=== PATIENT | female | born 1990 | race Caucasian/White ===

== ENCOUNTER 2020-01-19 19:14 | Emergency (ER) | payer MEDICAID, SELFPAY ==
[2020-01-19 19:30] VITALS: BP 131/82; PULSE 86; TEMP 37.2; O2SAT 99
--- NOTE | 2020-01-19 19:30 | DI.CT_ITS ---
EXAM: CT LUMBAR SPINE SI JOINTS WO CLINICAL HISTORY: Fall, L leg/back/buttock pain. TECHNIQUE: Imaging Protocol: Axial computed tomography images with coronal and sagittal reformatted images were created and reviewed COMPARISON: No exams were available for comparison FINDINGS: Bones: The last intervertebral disc space is designated the L5/S1 level for the numbering purpose of this examination. The vertebral body heights are well maintained. Alignment is satisfactory. No frac ture or subluxation is seen. T12-L1: No disc herniations or bulges are present. L1-2: No disc herniations or bulges are present. L2-3: No disc herniations or bulges are present. L3-4: No disc herniations or bulges are present. L4-5: No disc herniations or bulges are present. L5-S1: Small central disc protrusion but no significant central spinal canal or neural foraminal joslyn nosis. Soft Tissues: The visualized SI joints and sacrum are will maintained. The paraspinal soft tissues a re unremarkable. IMPRESSION: No acute abnormality. RADIATION DOSE DELIVERED: 771.4mGy.cm Total DLP 771.4mGy.cm Total DLP DATA REPOSITORY: All CT scans at this facility are submitted to the National Radiology Data Registry (NRDR) Dose Index Registry (DIR) with the [employer] (ACR). RADIATION OPTIMIZATION: All CT scans at this facility use at least one of these dose optimization te chniques: automated exposure control; mA and/or kV adjustment per patient size (includes targeted exa ms where dose is matched to clinical indication); or iterative reconstruction.
--- NOTE | 2020-01-19 19:30 | DI.CT_ITS ---
EXAM: CT HEAD CERVICAL SPINE WO CLINICAL HISTORY: fall, L pain. TECHNIQUE: Imaging Protocol: Axial computed tomography images with coronal and sagittal reformatted images were created and reviewed COMPARISON: No exams were available for comparison FINDINGS: CT Head: Ventricles and Extra axial spaces: Normal in size and morphology for the patient's age. Hemorrhage: None. Cerebral parenchyma: Normal. Midline shift: None. Brainstem/Cerebellum: Normal. Calvarium: Normal. Visualized Paranasal sinuses/Mastoids: Clear. Soft Tissues: Unremarkable. CT Cervical Spine: Bones: No acute fracture or subluxation. There is straightening of the normal cervical lordosis. Thi s likely is due to muscle spasm or patient positioning. Soft Tissues: Unremarkable. Lung Apices: Clear. IMPRESSION: 1. No acute intracranial process. 2. No acute fracture or subluxation in the cervical spine. RADIATION DOSE DELIVERED: 1,138.88mGy.cm Total DLP DATA REPOSITORY: All CT scans at this facility are submitted to the National Radiology Data Registry (NRDR) Dose Index Registry (DIR) with the [employer] (ACR). RADIATION OPTIMIZATION: All CT scans at this facility use at least one of these dose optimization te chniques: automated exposure control; mA and/or kV adjustment per patient size (includes targeted exa ms where dose is matched to clinical indication); or iterative reconstruction.
--- NOTE | 2020-01-19 19:44 | W.ED.GENAD ---
Discharge Plan Disposition Patient Disposition: HOME Condition: Stable Discharge Details Clinical Impression: Contusion of coccyx [facility]: Matthew Joseph Home Meds and New Rx's Prescriptions: Continued acyclovir 400 mg Tablet 400 mg PO BID RF: 0 pantoprazole [Protonix] 20 mg Tablet,Delayed Release (Dr/Ec) 20 mg PO DAILY RF: 0 sertraline 50 mg Tablet 50 mg PO DAILY RF: 0 Discharge Instructions Instructions: Contusion in Adults (ED) Medical Decision Making 30-year-old female who stepped backwards off a 4 foot high bed when she lost her footing fell on her buttocks and then struck her occiput on the ground. She did not have a loss of consciousness. She is now developed left buttock and low back pain. Vital signs are normal. Her reflexes and motor strength to lower extremity are within normal limits. She is diffusely tender throughout her L-spine. She complains of mild headache as well. Referred for CT images of the head and cervical spine as well as L-spine and SI joints. CT head without acute findings and cervical spine unremarkable. CT of the L-spine without acute fracture noted, normal alignment. No disc protrusion noted. Noted posterior disc bulge at L5-S1. I do also question distal coccyx bony deviation. Discussed findings with patient. She will use a inflatable doughnut to ease pressure on her coccyx. She will continue to use [id number] medications for pain as needed. She was consented for small number of narcotic analgesics for breakthrough/severe pain. She will return for any acute concerns. HPI General Mode of arrival: ambulatory. Date/Time Provider Initiated Documentation: 01/19/20 19:15. Limitations to Documentation: no limitations. Information obtained by: patient. History of Present Illness 30 year old F presents to the emergency department with the chief complaint of 4 foot fall, left occiput pain, left low back pain, described as moderate, Quality is described as dull, and is localized to the head, back, buttocks and left. Patient reports no radiation. Patient started experiencing this minute(s) and it has been constant. No relieving factors improve symptom(s), No exacerbating factors reported . Patient notes headaches. Patient did receive the following treatments prior to arrival, none Related Data Home Medications Medication Instructions Recorded Confirmed acyclovir 400 mg PO BID 01/19/20 01/19/20 pantoprazole [Protonix] 20 mg PO DAILY 01/19/20 01/19/20 sertraline 50 mg PO DAILY 01/19/20 01/19/20 Allergies Allergy/AdvReac Type Severity Reaction Status Date / Time Sulfa (Sulfonamide Allergy Intermediate Skin Rash Unverified 01/19/20 19:38 Antibiotics) General Stated Complaint: Trauma HAMILTON: 3 Review of Systems Narrative: No saddle anesthesia. Pain with weightbearing left hip but able to walk. She has otherwise been well. [facility] Social History Alcohol Intake: never Substance use type: does not use Do you feel safe at home: Yes Do you feel safe in your relationship?: Yes Exam Narrative Exam Narrative: GEN: awake, alert, oriented 3. Pleasant, well groomed, interactive. HEAD: Normocephalic, atraumatic ENT: Mucous membranes moist, oropharynx unremarkable, External ear exam unremarkable EYES: PERRL, EOMI NECK: Full ROM, no ROXANA, no menigismus CHEST/RESP: Nontender, clear to auscultation bilateral, no wheeze/rhonchi/rales CARDIOVASCULAR: RRR, no murmur, rub scotty. 2+ Rad pulse bilateral Back: Tender throughout the lumbar spine and pelvis with palpation. Do not appreciate focal step-off or deformity. ABDOMEN: Soft, nontender, no mass. +Bowel sounds EXT: Full ROM, no edema, no rash. Saddle sensation intact. Reflexes 2+, brisk and symmetric at the patella and ankle bilaterally. Neuro: Grossly normal neurologic exam, conversant, interactive. Psych: Speech fluent, thoughts congruent, affect normal Course Vital Signs Vital signs: Vital Signs Temperature 37.2 C 01/19/20 19:30 Pulse 86 01/19/20 19:30 Blood Pressure 131/82 01/19/20 19:30 Pulse Oximetry 99 01/19/20 19:30 Temperature 37.2 C 01/19/20 19:30 Temperature Source Skin 01/19/20 19:30 Pulse 86 01/19/20 19:30 Respiratory Effort Non-Labored 01/19/20 19:36 Blood Pressure 131/82 01/19/20 19:30 Blood Pressure Position Sitting 01/19/20 19:30 Pulse Oximetry 99 01/19/20 19:30 Oxygen Delivery Method Room Air 01/19/20 19:30 Oxygen Flow Rate 0 01/19/20 19:30 Pain Level 8 01/19/20 19:30
[2020-01-19] MEDS: Ketorolac 10 MG TAB PO (19:47)
[2020-01-19 20:18] VITALS: BP 116/66; PULSE 73; RESP 18; TEMP 37.2; O2SAT 100
[2020-01-19 21:09] VITALS: BP 130/71; PULSE 89; RESP 16; TEMP 37.4; O2SAT 100
--- NOTE | 2020-01-22 16:03 | DI.VRAD_ITS ---
PROCEDURE INFORMATION: Exam: CT Lumbar Spine Without Contrast Exam date and time: 01/19/2020 8:02 PM Age: 30 years old Clinical indication: Injury or trauma; Blunt trauma (contusions or hematomas); Patient HX: Fall, L leg/back/buttock pain TECHNIQUE: Imaging protocol: Computed tomography images of the lumbar spine without contrast. COMPARISON: No relevant prior studies available. FINDINGS: Vertebrae: No acute fracture. Normal alignment. Discs/Spinal canal/Neural foramina: No significant disc protrusion. Posterior disc bulge L5-S1 level contacting ventral border of thecal sac. No severe spinal canal stenosis. No significant neural foraminal narrowing. Soft tissues: Unremarkable. IMPRESSION: No acute findings. Dictated and Authenticated by: Randall Poole MD. Ordering:MASOUD Castro MD
--- NOTE | 2020-01-22 16:03 | DI.VRAD_ITS ---
PROCEDURE INFORMATION: Exam: CT Head Without Contrast Exam date and time: 01/19/2020 7:44 PM Age: 30 years old Clinical indication: Injury or trauma; Blunt trauma (contusions or hematomas); Patient HX: Fall, L pain TECHNIQUE: Imaging protocol: Computed tomography of the head without contrast. COMPARISON: No relevant prior studies available. FINDINGS: Brain: Normal. No hemorrhage. Unremarkable white matter. No mass effect. Cerebral ventricles: No ventriculomegaly. Bones/joints: Unremarkable. No acute fracture. Paranasal sinuses: Visualized sinuses are unremarkable. No fluid levels. Mastoid air cells: Visualized mastoid air cells are well aerated. Soft tissues: Unremarkable. IMPRESSION: No acute intracranial abnormality. PROCEDURE INFORMATION: Exam: CT Cervical Spine Without Contrast Exam date and time: 01/19/2020 7:44 PM Age: 30 years old Clinical indication: Injury or trauma; Blunt trauma (contusions or hematomas); Patient HX: Fall, L pain TECHNIQUE: Imaging protocol: Computed tomography images of the cervical spine without contrast. COMPARISON: No relevant prior studies available. FINDINGS: Vertebrae: No acute fracture. Normal alignment. Discs/Spinal canal/Neural foramina: No significant disc protrusion. No severe spinal canal stenosis. No significant neural foraminal narrowing. Soft tissues: Unremarkable. Lungs: Lung apices are normal. IMPRESSION: No acute findings. Dictated and Authenticated by: Manjinder Silveira MD. Ordering:MASOUD Castro MD
== END 2020-01-19 21:15 | disposition home or self-care (01) ==
PROVIDERS: Emergency Provider Emergency Medicine
DX: S30.0XXA Contusion of lower back and pelvis, initial encounter (principal); S09.90XA Unspecified injury of head, initial encounter; W06.XXXA Fall from bed, initial encounter
CPT/HCPCS: 99285; 70450; 72125; 72131; 99284

== ENCOUNTER 2020-06-26 13:37 | Outpatient (REF) | payer MEDICAID, SELFPAY | END 2020-06-26 13:38 | disposition home or self-care (01) | LOC: NCHCN 13:37 | PROVIDERS: Visit Provider Physician Assistant | DX: N39.0 Urinary tract infection, site not specified (principal) | CPT/HCPCS: 87086 ==

== ENCOUNTER 2020-07-26 19:12 | Outpatient (REF) | payer MEDICAID, SELFPAY ==
[2020-07-26 18:08] LABS: HCT 39.9 % (36.0-46.0); HGB 13.9 g/dL (11.2-15.7); MCH 31.7 pg (27.0-33.0); MCHC 34.8 % (32.0-36.0); MCV 90.9 fL (80-95); MPV 12.1 fL (8.0-11.0); Platelet Count 217 10^3/uL (130-400); RBC 4.39 10^6/uL (3.93-5.22); RDW 11.9 % (11.7-14.6); RDW-SD 39.6 fL; WBC 7.01 10^3/uL (4.4-10.8)
[2020-07-26 18:28] LABS: ALT 29 U/L (14-59); AST 23 U/L (15-37); Albumin 3.8 g/dL (3.4-5.0); Alkaline Phosphatase 75 U/L (46-116); Anion Gap 5.4 mmol/L (3-11); BUN 17 mg/dL (7-18); Bilirubin, Total 0.3 mg/dL (0.2-1.0); CO2 29.6 mmol/L (21.0-32.0); CREATININE 0.8 mg/dL (0.55-1.02); Chloride 104 mmol/L (98-107); Glucose 87 mg/dL (74-106); Potassium 4.2 mmol/L (3.5-5.1); Sodium 139 mmol/L (136-145); Total Protein 6.9 g/dL (6.4-8.2)
== END 2020-07-26 19:13 | disposition home or self-care (01) ==
LOC: NCHCN 19:12
PROVIDERS: Visit Provider Physician Assistant
DX: K21.9 Gastro-esophageal reflux disease without esophagitis (principal); K59.09 Other constipation
CPT/HCPCS: 80053; 85027

== ENCOUNTER 2020-08-12 14:39 | Emergency (ER) | payer MEDICAID, SELFPAY ==
[2020-08-12] VITALS (10 sets, daily range): BP systolic 97–120; BP diastolic 62–71; PULSE 60–72; RESP 14–21; TEMP 36.6; O2SAT 99–100
--- NOTE | 2020-08-12 14:41 | ED.GENADUL_ITS ---
Discharge Plan Disposition Patient Disposition: HOME Condition: Stable Discharge Details Clinical Impression: Abdominal pain Primary Care Provider: Puneet Borrego ED Provider: Cecelia Galan Home Meds and New Rx's Prescriptions: Continued pantoprazole [Protonix] 20 mg Tablet,Delayed Release (Dr/Ec) 20 mg PO DAILY RF: 0 sertraline 50 mg Tablet 50 mg PO DAILY RF: 0 valacyclovir 1 gram tablet 1 mg PO DAILY RF: 0 sumatriptan succinate 25 mg tablet 25 mg PO PRNRF: 0 ondansetron HCl 4 mg tablet 4 mg PO PRNRF: 0 dicyclomine 20 mg tablet 20 mg PO PRNRF: 0 budesonide-formoterol [Symbicort] 160-4.5 mcg/actuation HFA aerosol inhaler INHALATION BID RF: 0 Linzess 145 mcg capsule 145 mcg PO DAILY RF: 0 Discharge Instructions Instructions: Abdominal Pain (ED) Additional Instructions: Follow up with primary care provider in 3-5 days. Return to ED sooner if any worsening or concerns. Increase oral fluids. Please take Tylenol or Ibuprofen with food every 4-6 hours as needed for pain and swelling. Referrals: Puneet Borrego [Primary Care Provider] - Discharge Data Discharge Date/Time-TO BE ENTERED AT DEPARTURE: 08/12/20 14:46 Medical Decision Making 30-year-old female presents to the ER with chief complaint of right lower quadrant abdominal pain. She was seen at [facility] prior to arrival and referred to the emergency room. Patient reports that it began this morning. Describes as cramping. Also endorses some mid to lower back pain. Reports nausea but no vomiting no diarrhea. She has a past medical history of irritable bowel syndrome no surgical abdominal history. Do not take any medications prior to arrival Labs are largely unremarkable no leukocytosis, CMP within normal limits, urinalysis negative for leukocytes no nitrites. Urine is negative. Discussed CT results with radiologist she reports that no evidence of appendicitis or ovarian cyst unable to view the left ovary. Discussed CT and lab results with patient, she verbalized understanding. Offered pain and nausea medication which she refused at this time. CT ABDOMEN PELVIS W EXAM: CT ABDOMEN PELVIS W INDICATION: RLQ abd pain, R/O Appy vs ovarian cyst. COMPARISON: No exams were available for comparison TECHNIQUE: FINDINGS: CT examination of the abdomen and pelvis was performed with a bolus infusion of 100 cc of Omnipaque 350. Images obtained through the lung bases are unremarkable. The liver is unremarkable in appearance. Gallbladder and bile ducts are CT normal. Pancreas appears normal. Spleen is unremarkable in appearance. Adrenals appear normal. The kidneys are unremarkable with no evidence of hydronephrosis, nephrolithiasis, or renal mass.. Urinary bladder unremarkable. Abdominal aorta is of normal diameter and no major vascular abnormality is seen. No abdominal wall hernia. No abdominal or pelvic adenopathy. There is trace free pelvic fluid. [employer] structures appear intact as visualized, left ovary not identified with ce rtainty.. Appendix is nonvisualized but there is no specific evidence of appendicitis.. No evidence of diverticulitis or bowel obstruction. IMPRESSION: Trace free fluid in the pelvis. No other specific findings to suggest appendicitis or other acute pathology. Patient's pain at this time could be related to her IBS syndrome and or the recent use of the Linzess laxative. Discussed strict return instructions and follow-up with PCP patient verbalized understanding. HPI General Mode of arrival: ambulatory . Date/Time Provider Initiated Documentation: 08/12/20 14:40 . Limitations to Documentation: no limitations . Information obtained by: RN notes reviewed and old records reviewed (Report from [facility]) . HPI Narrative: 30-year-old female presents to the ER with chief complaint of right lower quadrant abdominal pain. She was seen at [facility] prior to arrival and referred to the emergency room. Patient reports that it began this morning. Describes as cramping. Also endorses some mid to lower back pain. Reports nausea but no vomiting no diarrhea. She has a past medical history of irritable bowel syndrome no surgical abdominal history. Do not take any medications prior to arrival. Related Data Home Medications Medication Instructions Recorded Confirmed pantoprazole [Protonix] 20 mg PO DAILY 01/19/20 08/12/20 sertraline 50 mg PO DAILY 01/19/20 08/12/20 Linzess 145 mcg PO DAILY 08/12/20 08/12/20 budesonide-formoterol [Symbicort] INHALATION BID 08/12/20 dicyclomine 20 mg PO PRN 08/12/20 ondansetron HCl 4 mg PO PRN 08/12/20 sumatriptan succinate 25 mg PO PRN 08/12/20 valacyclovir 1 mg PO DAILY 08/12/20 08/12/20 Allergies Allergy/AdvReac Type Severity Reaction Status Date / Time Sulfa (Sulfonamide Allergy Intermediate Skin Rash Unverified 08/12/20 14:54 Antibiotics) General HAMILTON: 3 Review of Systems Narrative: Constitutional: Negative for weight loss, alert and oriented, well groomed, normal body habitus, appears uncomfortable. HEENT: Denies trauma, headaches, blurry vision, nasal discharge, sore throat, trouble swallowing. Chest: Denies chest pain, palpitations, irregular rhythm, hypertension. Respiratory: Denies Shortness of breath, cough, hemoptysis. GI: Denies vomiting, diarrhea, constipation. Positive abdominal pain and lower back : Denies dysuria, hematuria, flank pain, rectal bleeding. Neuro: Denies dizziness, blurry vision, weakness, syncope, headache or facial numbness. Hematologic: Denies easy bruising, intolerance to heat or cold, hair loss. [facility] Social History Smoking/Tobacco Use Status: Never Smoking risk assessment performed?: Yes Alcohol Intake: current Alcohol Intake frequency: a few times a month Drug use: Never Substance use type: does not use Do you feel safe at home: Yes Do you feel safe in your relationship?: Yes Exam Narrative Exam Narrative: Constitutional: Alert and oriented x3. Appears stated age. Normal body habitus. Head: Normocephalic, no trauma. Eyes: Pupils PERRLA, Red reflex noted, EOM's intact. Eyelids symmetrical without lesions, discharge, or swelling. ENT: Bilateral TM's WNL, External ear normal to inspection, no mastoid TTP, swelling, or erythema, Nasal turbinates WNL, no nasal discharge. Normal dentition, Posterior pharynx WNL, no exudate. Chest: RRR, Normal S1, S2, distal pulses intact. Resp: Lungs clear to auscultation bilaterally, no wheezes, rales, or rhonchi. Abdomen: Soft, nondistended tender suprapubic with palpation. After moving increased cramping Musculoskeletal: Normal gait, 5/5 strength to all four extremities. Skin: No suspicious rashes or lesions. Capillary refill less than 2 sec. Neurologic: Cranial nerves II-XII intact. Alert and oriented x 3. DTR's intact. Hematologic/Lymphatic: No ecchymosis, no lymphadenopathy.
[2020-08-12 14:56] LABS: Bilirubin Negative (Negative); Blood Negative (Negative); Clarity Clear (Clear); Glucose Negative (Negative); Ketones Negative (Negative); Leukocyte Esterase Negative (Negative); Nitrite Negative (Negative); Urobilinogen 0.2 EU/dL (Up TO 0.2); pH 6.5 (5-8)
[2020-08-12 15:15] LABS: Abs Immature Grans 0.01 10^3/uL (0.0-0.06); Absolute Basophil Count 0.06 10^3/uL (0.0-0.2); Absolute Eosinophil Count 0.15 10^3/uL (0.0-0.7); Absolute Lymphocyte Count 2.27 10^3/uL (1.2-3.4); Absolute Monocyte Count 0.56 10^3/uL (0.1-0.8); Absolute Neutrophil Count 4.34 10^3/uL (1.2-6.7); Basophils % 0.8; HCT 41.4 % (36.0-46.0); Immature Grans % 0.1; Lymphocytes % 30.7; MCH 31.4 pg (27.0-33.0); MCHC 33.8 % (32.0-36.0); MCV 92.8 fL (80-95); MPV 11.3 fL (8.0-11.0); Monocytes % 7.6; Neutrophils % 58.8; Nucleated RBC 0 %; Platelet Count 226 10^3/uL (130-400); RBC 4.46 10^6/uL (3.93-5.22); RDW 12.4 % (11.7-14.6); RDW-SD 42.6 fL; WBC 7.39 10^3/uL (4.4-10.8)
[2020-08-12 15:26] LABS: Lipase 84 U/L (73-393); Magnesium 1.9 mg/dL (1.8-2.4)
[2020-08-12 15:29] LABS: ALT 37 U/L (14-59); AST 28 U/L (15-37); Albumin 3.8 g/dL (3.4-5.0); Alkaline Phosphatase 75 U/L (46-116); Anion Gap 7.5 mmol/L (3-11); BUN 11 mg/dL (7-18); Bilirubin, Total 0.3 mg/dL (0.2-1.0); CO2 27.5 mmol/L (21.0-32.0); CREATININE 0.8 mg/dL (0.55-1.02); Calcium 8.5 mg/dL (8.5-10.1); Chloride 105 mmol/L (98-107); Glucose 94 mg/dL (74-106); Sodium 140 mmol/L (136-145); Total Protein 7.2 g/dL (6.4-8.2)
[2020-08-12] MEDS: Normal Saline - Diluent 50 ML VIAL IV (15:34)
[2020-08-12] MEDS: Omnipaque 350 MG/ML 100 ML BTL IJ (15:34)
--- NOTE | 2020-08-12 15:35 | DI.CT_ITS ---
Exam(s) CT ABDOMEN PELVIS W EXAM: CT ABDOMEN PELVIS W INDICATION: RLQ abd pain, R/O Appy vs ovarian cyst. COMPARISON: No exams were available for comparison TECHNIQUE: FINDINGS: CT examination of the abdomen and pelvis was performed with a bolus infusion of 100 cc of Omnipaque 3 50. Images obtained through the lung bases are unremarkable. The liver is unremarkable in appearance. Gallbladder and bile ducts are CT normal. Pancreas appears normal. Spleen is unremarkable in appearance. Adrenals appear normal. The kidneys are unremarkable with no evidence of hydronephrosis, nephrolithiasis, or renal mass.. Ur inary bladder unremarkable. Abdominal aorta is of normal diameter and no major vascular abnormality is seen. No abdominal wall hernia. No abdominal or pelvic adenopathy. There is trace free pelvic fluid. [employer]ES [employer]CH[employer]ISING [employer]IATE structures appear intact as visualized, left ovary not identified with certainty.. Appendix is nonvisualized but there is no specific evidence of appendicitis.. No evidence of diverti culitis or bowel obstruction. IMPRESSION: Trace free fluid in the pelvis. No other specific findings to suggest appendicitis or other acute pa thology. RADIATION DOSE DELIVERED: 867.99mGy.cm Total DLP 867.99mGy.cm Total DLP RADIATION OPTIMIZATION: All CT scans at this facility use at least one of these dose optimization te chniques: automated exposure control; mA and/or kV adjustment per patient size (includes targeted exa ms where dose is matched to clinical indication); or iterative reconstruction.
== END 2020-08-12 14:46 | disposition home or self-care (01) ==
PROVIDERS: Emergency Provider Registered Nurse Emergency; PCP Physician Assistant
DX: R10.31 Right lower quadrant pain (principal)
CPT/HCPCS: 80053; 81025; 83690; 99285; 74177; 81003; 83735; 85025; 99283; J3490

== ENCOUNTER 2020-08-14 10:16 | Outpatient (REF) | payer MEDICAID, SELFPAY ==
[2020-08-14 15:29] LABS: HCT 44.8 % (36.0-46.0); HGB 15.1 g/dL (11.2-15.7); MCH 31.6 pg (27.0-33.0); MCHC 33.7 % (32.0-36.0); MCV 93.7 fL (80-95); MPV 12.2 fL (8.0-11.0); Platelet Count 238 10^3/uL (130-400); RBC 4.78 10^6/uL (3.93-5.22); RDW 12.4 % (11.7-14.6); RDW-SD 42.9 fL; WBC 6.25 10^3/uL (4.4-10.8)
[2020-08-14 15:46] LABS: HCG Quant, Pregnancy < 1 mIU/mL (1-3)
== END 2020-08-14 10:17 | disposition home or self-care (01) ==
LOC: NCHCN 10:16
PROVIDERS: PCP Physician Assistant; Visit Provider Nurse Practitioner Family
DX: R10.9 Unspecified abdominal pain (principal); N93.9 Abnormal uterine and vaginal bleeding, unspecified
CPT/HCPCS: 85027; 84702

== ENCOUNTER 2020-08-16 12:01 | Outpatient (CLI) | payer MEDICAID, SELFPAY ==
--- NOTE | 2020-08-16 | DI.US_ITS ---
Exam(s) US PELVIS TRANSVAGINAL EXAM: US PELVIS TRANSVAGINAL CLINICAL HISTORY: ABD PAIN R10.9, VAGINAL BLEEDING N93.9 TECHNIQUE: Ultrasound of the pelvis was performed both transabdominal and transvaginal. COMPARISON: US PELVIS TRANSVAG from 02/28/2012 FINDINGS: UTERUS: Anteverted/nongravid Measures 8 cm length x 4.4 cm AP x 6 cm wide. There are no uterine fibroids. Endometrial thickness measures 3 mm. There is no fluid in the endometrial canal. CERVIX: There are no obvious nabothian cysts. RIGHT OVARY: Measures 3.4 x 1.3 x 2.1 cm Contains subcentimeter follicular cysts. LEFT OVARY: Measures 1.7 x 2.7 x 1 point cm Contains subcentimeter follicular cysts. CUL-DE-SAC: No free fluid evident. IMPRESSION: 1. Normal appearing uterus and age-appropriate endometrium. 2. Follicular cysts noted in both ovaries, these measuring 1 cm or less. 3. No free fluid evident in the adnexal regions and cul-de-sac. DATA REPOSITORY:
== END 2020-08-16 12:21 ==
PROVIDERS: PCP Physician Assistant; Visit Provider Nurse Practitioner Family
DX: R10.9 Unspecified abdominal pain (principal); N93.9 Abnormal uterine and vaginal bleeding, unspecified; N83.01 Follicular cyst of right ovary; N83.02 Follicular cyst of left ovary
CPT/HCPCS: 76830; 76856

== ENCOUNTER 2020-09-17 16:15 | Outpatient (REF) | payer MEDICAID, SELFPAY ==
--- NOTE | 2020-09-17 16:00 | PAPFT_PTH ---
PATIENT: Renetta Bradley LOC: [facility] U#:[id number] AGE/SX: 30/F ROOM: RE09/17/[address]: Ellie Ramos MD : 1990 BED: DIS: 09/17/2020 SPEC #: [id number] RECD: 09/17/20 18:31 STATUS: THAD REQ #: [id number] JESSIE: 09/17/20 16:[address]: Ellie Ramos DEPT: [facility] Cytology RECD BY: Sunitha Alarcon ENTERED: 09/17/20 18:31 SP TYPE: PAPFT OTHR DR: Puneet Borrego Tissues: 1 - CX/ENDOCX FOR PAP SMEARS Procedures: PAP THIN PREP/UVM Screening Comments: [id number] (CHLAMYDIA/GC)
[2020-09-20 14:07] LABS: Chlamydia Result Negative (Negative); GC Result Negative (Negative)
== END 2020-09-17 16:16 | disposition home or self-care (01) ==
LOC: LBN 16:15
PROVIDERS: PCP Physician Assistant; Visit Provider Obstetrics & Gynecology
DX: Z11.3 Encounter for screening for infections with a predominantly sexual mode of transmission (principal); Z12.4 Encounter for screening for malignant neoplasm of cervix
CPT/HCPCS: 87491; 87591; 88142; 87624

== ENCOUNTER 2020-09-21 02:53 | Outpatient (CLI) | payer MEDICAID, SELFPAY ==
--- NOTE | 2020-09-21 16:34 | W.PFT ---
Date of service: 09/21/20 Time of Service: 03:01 Pulmonary Function Test Result Interpretation Spirometry: No evidence of obstructive airways disease, no bronchodilator testing was carried out Lung Volumes: No evidence of restriction Diffusion Capacity: Normal Airway Pressure: Normal Impression Normal pulmonary function study. No bronchodilator testing was carried out Clinical Correlation therefore is recommended.
[2020-09-21] MEDS: Methacholine 100 MG VIAL IH (17:24)
[2020-09-21] MEDS: Albuterol HFA 18 GM 200 PUFF INH IH (17:25)
[2020-09-21] MEDS: Inhaler, Assist Device 1 EACH MC (17:25)
--- NOTE | 2020-09-22 08:25 | PFT_ITS ---
Date of service: 09/21/20 Time of Service: 05:05 Pulmonary Function Test Result Clinical Correlation therefore is recommended. Methacholine Challnege Test Date of Service Date of Service: 09/21/2020 Note After normal spirometry, methacholine challenge testing was carried out up to methacholine concentration of 16 mg/mL. At that point there was a 13% drop in F EV1. Impression Negative methacholine challenge test
== END 2020-09-21 02:54 | disposition home or self-care (01) ==
LOC: RT 02:53
PROVIDERS: PCP Physician Assistant; Visit Provider Physician Assistant
DX: J45.998 Other asthma (principal)
CPT/HCPCS: 94060; 94726; 94729; 95070; 94010; J7674

== ENCOUNTER 2020-10-28 06:17 | Emergency (ER) | payer MEDICAID, SELFPAY ==
[2020-10-28 06:25] VITALS: BP 113/80; PULSE 68; RESP 14; TEMP 36.3; O2SAT 97
--- NOTE | 2020-10-28 06:36 | ED.GENADUL_ITS ---
Discharge Plan Disposition Patient Disposition: HOME Condition: Good Discharge Details Clinical Impression: Headache Primary Care Provider: Puneet Borrego ED Provider: Ron Slaughter Home Meds and New Rx's Prescriptions: Continued etonogestrel-ethinyl estradiol [NuvaRing] 0.12-0.015 mg/24 hr ring 1 vag ring vaginal Q4W Qty: 3 RF: 4 pantoprazole [Protonix] 20 mg Tablet,Delayed Release (Dr/Ec) 20 mg PO DAILY RF: 0 sertraline 50 mg Tablet 50 mg PO DAILY RF: 0 valacyclovir 1 gram tablet 1 mg PO DAILY RF: 0 sumatriptan succinate 25 mg tablet 25 mg PO DAILY MDD 50 PRN (Reason: Migraine Headache) RF: 0 ondansetron HCl 4 mg tablet 4 mg PO DAILY PRNRF: 0 dicyclomine 20 mg tablet 20 mg PO TID PRNRF: 0 budesonide-formoterol [Symbicort] 160-4.5 mcg/actuation HFA aerosol inhaler 2 puff INHALATION BID RF: 0 Linzess 145 mcg capsule 145 mcg PO DAILY RF: 0 Linzess 145 mcg capsule 145 mcg PO DAILY RF: 0 Discharge Instructions Instructions: General Headache (ED) Additional Instructions: At this time your symptoms appear consistent with a complex migraine headache. Please drink plenty of fluids, take Tylenol as Motrin as needed, and avoid preserved foods or foods high in nitrites. If you notice any worsening of your symptoms, or any new symptoms such as vomiting, diarrhea, fever, chills, shortness of breath, chest pain, numbness, weakness, or fainting , please return immediately to the emergency department for reevaluation. Please follow up with your primary care provider as soon as possible for reassessment and reevaluation. As always, it was a pleasure participating in your medical care today. Referrals: Puneet Borrego [Primary Care Provider] - Medical Decision Making 30-year-old female with a past medical history of migraine headaches, presents today for evaluation of headache. Patient states that starting yesterday she mild pain behind her left eye over her left scientologist, this is notably increased today, 2 create a severe throbbing headache in the left side of her head, with a rushing sensation when she moves her head forward and backwards. She denies any fever or chills. She denies any significant visual changes. She denies any neck pain. The patient denies any headache red flags thunderclap headache, neck pain, fever, chills, concerning family history of polycystic kidney disease, Marfan syndrome, Dolores-Danlos syndrome, abdominal aortic aneurysm, aortic dissection, or intracranial aneurysm. There are certainly components that are similar to her normal migraines however this 1 seems to be a bit worse from normal per the patient. She did take her sumatriptan, and other NSAIDs but to no improvement. Patient has been on her nova ring for some time now, but denies any oral contraceptives. No other complaints at this time. No other modifying factors. Exam demonstrates no neurologic deficits. No nuchal rigidity or meningeal signs. Symptoms clinically appearing consistent with giant cell/temporal arteritis, dural venous sinus thrombosis, or meningitis or encephalitis. Differential is highest for complex migraine. Patient has had a CT scan in the past on 01/19/2020. No mass tumor or other abnormality then. We will hold off on additional imaging for the time being. We will rehydrate, give migraine cocktail, monitor closely and reassess. 7:30 AM On reassessment the patient is feeling much better. Headache has nearly completely resolved, repeat neurologic exam is unremarkable. Patient feels well and was requesting to go home. At this time symptoms appear clinically inconsistent with venous sinus thrombosis, meningitis, temporal arteritis, acute intracranial bleed, mass-effect or tumor. Symptoms instead appear consistent with complex migraine. Recommend continued fluids, rest, Tylenol and Motrin as needed. Discussed red flags which to return. I have extensively reviewed the treatment plan and discharge instructions with the patient. I have addressed all patient concerns at this time. The patient was made aware of what symptoms to monitor for that would warrant a return to the emergency department. Discussed the plan with the patient, they demonstrate verbal understanding and agreement with our assessment and plan at this time. The documentation in this chart was dictated using [employer] dictation software. Please excuse any dictation errors. HPI General Date/Time Provider Initiated Documentation: 10/28/20 06:23 . HPI Narrative: 30-year-old female with a past medical history of migraine headaches, presents today for evaluation of headache. Patient states that starting yesterday she mild pain behind her left eye over her left scientologist, this is notably increased today, 2 create a severe throbbing headache in the left side of her head, with a rushing sensation when she moves her head forward and backwards. She denies any fever or chills. She denies any significant visual changes. She denies any neck pain. The patient denies any headache red flags thunderclap headache, neck pain, fever, chills, concerning family history of polycystic kidney disease, Marfan syndrome, Dolores-Danlos syndrome, abdominal aortic aneurysm, aortic dissection, or intracranial aneurysm. There are certainly components that are similar to her normal migraines however this 1 seems to be a bit worse from normal per the patient. She did take her sumatriptan, and other NSAIDs but to no improvement. Patient has been on her nova ring for some time now, but denies any oral contraceptives. No other complaints at this time. No other modifying factors. Related Data Home Medications Medication Instructions Recorded Confirmed pantoprazole [Protonix] 20 mg PO DAILY 01/19/20 10/28/20 sertraline 50 mg PO DAILY 01/19/20 10/28/20 Linzess 145 mcg PO DAILY 08/12/20 08/12/20 budesonide-formoterol [Symbicort] 2 puff INHALATION BID 08/12/20 10/28/20 dicyclomine 20 mg PO TID PRN 08/12/20 ondansetron HCl 4 mg PO DAILY PRN 08/12/20 10/28/20 sumatriptan succinate 25 mg PO DAILY PRN MDD 50 08/12/20 10/28/20 valacyclovir 1 mg PO DAILY 08/12/20 10/28/20 etonogestrel 0.12 mg-ethinyl 1 vag ring VAGINAL Q4W #3 ea 09/17/20 10/28/20 estradiol 0.015 mg/24 hr vaginal ring Linzess 145 mcg PO DAILY 10/28/20 10/28/20 Previous Rx's Medication Instructions Recorded etonogestrel 0.12 mg-ethinyl 1 vag ring VAGINAL Q4W #3 ea 09/17/20 estradiol 0.015 mg/24 hr vaginal ring Allergies Allergy/AdvReac Type Severity Reaction Status Date / Time Sulfa (Sulfonamide Allergy Intermediate Skin Rash Unverified 10/28/20 06:32 Antibiotics) General Stated Complaint: Headache HAMILTON: 3 Review of Systems All systems reviewed & are unremarkable except as noted in HPI and below PFSH Medical History Contraception management Menometrorrhagia Social History Smoking/Tobacco Use Status: Never Smoking risk assessment performed?: Yes Alcohol Intake: current Alcohol Intake frequency: a few times a month Drug use: Never Substance use type: does not use Do you feel safe at home: Yes Do you feel safe in your relationship?: Yes Exam Narrative Exam Narrative: 1.Const: Well-nourished, Well-developed, appearing stated age 2.Eyes: PERRL, no conjunctival injection, and symmetrical lids. Eyes on palpation do not feel asymmetrically tense. No exophthalmos. 3.ENT: Atraumatic external nose and ears. Moist MM. Neck: Symmetric, trachea midline, No thyromegaly. Patient demonstrates good movement of cervical neck. There is no nuchal rigidity, no nuchal tenderness. Patient is able to flex the neck without any difficulty or significant pain. Negative Kernig's and Brudzinski sign. 4.CVS: +S1/S2, No murmurs or gallops. Peripheral pulses 2+ and equal in all extremities. Brisk capillary refill in all extremities. 5.RESP: Unlabored respiratory effort. Clear to auscultation bilaterally. No wheezes rales or rhonchi 6.GI: Soft, Nontender/Nondistended, No hepatosplenomegaly. No guarding or rebound. 7.MSK: Normocephalic/Atraumatic, Extremities w/o deformity or ttp No cyanosis or clubbing, Normal movement of all extremities 8.Skin: Warm, Dry. No rashes or lesions. 9.Neuro: director of strategy & mobile II-XII grossly intact. Sensation grossly intact, no focal neurologic deficits. All 6 cardinal planes of vision are fully intact. No evidence of rotatory or vertical nystagmus. The patient demonstrated a normal [id number]-nftklz, good dexterity. There was no evidence of dysdiadochokinesia. Patient was able to ambulate without difficulty. There was no wide-based gait. [id number]-ot-[id number] testing was normal. Sensation was intact bilaterally as well as muscle strength bilaterally for all extremities. Patient was able to verbalize butter cup with no slurring, or miss pronunciation. 10.Psych: (AAO) x3. Appropriate mood and affect Course Vital Signs Vital signs: Vital Signs Temperature 36.3 C L 10/28/20 06:25 Pulse 68 10/28/20 06:25 Respiratory Rate 14 10/28/20 06:25 Blood Pressure 113/80 10/28/20 06:25 Pulse Oximetry 97 10/28/20 06:25 Temperature 36.3 C L 10/28/20 06:25 Temperature Source Skin 10/28/20 06:25 Pulse 68 10/28/20 06:25 Respiratory Rate 14 10/28/20 06:25 Respiratory Effort Non-Labored 10/28/20 06:32 Blood Pressure 113/80 10/28/20 06:25 Blood Pressure Position Sitting 10/28/20 06:25 Pulse Oximetry 97 10/28/20 06:25 Oxygen Delivery Method Room Air 10/28/20 06:25 Oxygen Flow Rate 0 10/28/20 06:25
[2020-10-28] MEDS: Normal Saline 1,000 ML 1000 ML IV (06:40)
[2020-10-28] MEDS: Ketorolac 15 MG/ML VIAL IVP (06:49)
[2020-10-28] MEDS: methylPREDNISolone SUCC 125 MG VIAL IVP (06:50)
[2020-10-28] MEDS: Prochlorperazine 10 MG/2 ML VIAL IVP (06:52)
[2020-10-28] MEDS: diphenhydrAMINE 50 MG/ML VIAL 25 MG IVP (06:52)
[2020-10-28] MEDS: ACETAMINOPHEN 1,000 MG/100 ML BTL 400 MG IVPB (07:02)
[2020-10-28 07:38] VITALS: BP 96/55; PULSE 65; RESP 18; O2SAT 100
== END 2020-10-28 07:41 | disposition home or self-care (01) ==
PROVIDERS: Emergency Provider Student in an Organized Health Care Education/Training Program; PCP Physician Assistant
DX: R51.9 Headache, unspecified (principal)
CPT/HCPCS: 36415; 81025; 96361; 96365; 96375; 99284; 99283; J0131; J0780; J1200; J1885; J2930

== ENCOUNTER 2021-05-04 21:59 | Emergency (ER) | payer BC, MEDICAID, SELFPAY ==
[2021-05-04 22:05] VITALS: BP 131/80; PULSE 69; RESP 18; TEMP 36.2; O2SAT 98
--- NOTE | 2021-05-04 22:20 | ED.GENADUL_ITS ---
Discharge Plan Disposition Patient Disposition: HOME Condition: Improving Discharge Details Clinical Impression: Cephalgia Primary Care Provider: Puneet Borrego ED Provider: Lloyd Henriquez Home Meds and New Rx's Prescriptions: Continued etonogestrel-ethinyl estradiol [NuvaRing] 0.12-0.015 mg/24 hr ring 1 vag ring vaginal Q4W Qty: 3 RF: 4 pantoprazole [Protonix] 20 mg Tablet,Delayed Release (Dr/Ec) 20 mg PO DAILY RF: 0 sertraline 50 mg Tablet 50 mg PO DAILY RF: 0 valacyclovir 1 gram tablet 1 mg PO DAILY RF: 0 sumatriptan succinate 25 mg tablet 25 mg PO DAILY MDD 50 PRN (Reason: Migraine Headache) RF: 0 ondansetron HCl 4 mg tablet 4 mg PO DAILY PRNRF: 0 dicyclomine 20 mg tablet 20 mg PO TID PRNRF: 0 budesonide-formoterol [Symbicort] 160-4.5 mcg/actuation HFA aerosol inhaler 2 puff INHALATION BID RF: 0 Linzess 145 mcg capsule 145 mcg PO DAILY RF: 0 Linzess 145 mcg capsule 145 mcg PO DAILY RF: 0 Discharge Instructions Instructions: General Headache (ED) Referrals: Yvonne Jewell MD [ [facility] STAFF PHYSICIAN] - Medical Decision Making 31-year-old female who reports history of migraines, typically at least 3 times a month, presents to the ER for a migraine that began yesterday. She took her sumatriptan as she typically does today and subsequently took Zofran, does not typically mix the 2, and then felt worse. Describes the pain as a moderate dull aching throb. She denies any fever or chills. She denies any visual changes or neck pain. She does not describe a thunderclap headache. No evidence of nuchal rigidity. Denies any history of family intracranial aneurysm. She appears neurologically intact. Patient states that she has never seen a neurologist for her ongoing migraines but she did have CT imaging back in 2019 after striking her head. I have reviewed her previous past medical history and it appears that she was seen last summer in our ER for atypical left-sided migraine that was more so about her temples and behind her eye. She responded very well to a migraine cocktail, I would like to try a migraine cocktail now and reassess. Given her presentation, I do believe that referring her to neurology would be prudent. Patient received IV fluid, Reglan, Toradol, Benadryl. Upon reevaluation clinically she appears comfortable, no acute distress. She reports that her nausea has resolved completely but her pain is only slightly improved. At this time we discussed her options. We discussed that we could repeat imaging here in the ER; however, patient reports that she has already had CT imaging and does not feel like this to be very helpful. She is open to receiving a referral to the neurologist so that she can have an further outpatient evaluation performed the potential MRI. She is also concerned that she will not sleep well tonight as she did not sleep well last night. We discussed medications, Phenergan can work well with migraine can also be sedating. Patient would like this medica tion given that she would like to have her father contacted so she may be picked up from the ER and go home to go to sleep. Patient is agreeable to awaiting reassessment after the Phenergan is given Upon reevaluation she reports improving symptoms. She once again request discharge home, is actively calling her father to pick her up. She appears well, nontoxic, neurologically intact. No evidence of nuchal rigidity. Strict discharge and return precautions were provided. I did place her on the neurology list to help expedite outpatient care This documentation was generated using [email or web address] dictation system, please disregard any oddities of phrase or misspellings. Medical Records Medical records reviewed: Yes I reviewed the patient's medical records. HPI General Mode of arrival: ambulatory . Date/Time Provider Initiated Documentation: 05/04/21 22:01 . Limitations to Documentation: no limitations . Information obtained by: patient . HPI Narrative: This is a 31-year-old female, past medical history of migraines, GERD, presenting to the ER for evaluation of migraine. Patient states that she had what she describes a typical migraine yesterday that were behind her left eye and waxed and waned. Today she states that the migraine went behind her right eye which is is slightly unusual and has been fairly steady ever since, she took sumatriptan and a bit later took Zofran as well. She states that she does not typically mix these medications and after taking the Zofran she felt as though her symptoms were worse. She is concerned about the medication interaction. She reports nausea but no vomiting. She states that after she took the Zofran she noticed twitching to both of her eyes. She denies recent illness or trauma. Reports that her headache is a 6 or 7 out of 10, global, but worse behind her eyes, more so on the right. She denies any blurry or double vision, fever, neck pain, vomiting, chest pain, shortness of breath, numbness, tingling, weakness. Patient reports a history of seizures; however, she has not had a seizure in over 2 years and is no longer taking any m edications. Related Data Home Medications Medication Instructions Recorded Confirmed pantoprazole [Protonix] 20 mg PO DAILY 01/19/20 05/04/21 sertraline 50 mg PO DAILY 01/19/20 05/04/21 Linzess 145 mcg PO DAILY 08/12/20 05/04/21 budesonide-formoterol [Symbicort] 2 puff INHALATION BID 08/12/20 05/04/21 dicyclomine 20 mg PO TID PRN 08/12/20 05/04/21 ondansetron HCl 4 mg PO DAILY PRN 08/12/20 05/04/21 sumatriptan succinate 25 mg PO DAILY PRN MDD 50 08/12/20 05/04/21 valacyclovir 1 mg PO DAILY 08/12/20 05/04/21 etonogestrel 0.12 mg-ethinyl 1 vag ring VAGINAL Q4W #3 ea 09/17/20 05/04/21 estradiol 0.015 mg/24 hr vaginal ring Linzess 145 mcg PO DAILY 10/28/20 05/04/21 Previous Rx's Medication Instructions Recorded etonogestrel 0.12 mg-ethinyl 1 vag ring VAGINAL Q4W #3 ea 09/17/20 estradiol 0.015 mg/24 hr vaginal ring Allergies Allergy/AdvReac Type Severity Reaction Status Date / Time Sulfa (Sulfonamide Allergy Intermediate Skin Rash Unverified 10/28/20 06:32 Antibiotics) General Stated Complaint: Headache HAMILTON: 3 Review of Systems Constitutional Constitutional: Denies fever(s), Reports headache(s) and Denies weakness Eyes Eyes: Denies blurry vision and Denies change in vision ENT Ears, Nose, Mouth, and Throat: Reports headache(s) and Denies neck pain Cardiovascular Cardiovascular: Denies chest pain and Denies dyspnea Respiratory Respiratory: Denies cough and Denies dyspnea Gastrointestinal Gastrointestinal: Reports nausea and Denies vomiting Musculoskeletal Musculoskeletal: Denies neck pain, Denies numbness and Denies tingling Integumentary/Breasts Skin/Breast: Denies rash Neurologic Neurologic: Reports headache(s), Denies numbness, Denies tingling and Denies weakness PFSH All Active Problems (Updated 05/04/21 @ 23:12 by CARMELA Vaughn) Headache (Acute) Cephalgia (Acute) Contraception management (Acute) Menometrorrhagia (Acute) Abdominal pain (Acute) Social History Smoking/Tobacco Use Status: Never Smoking risk assessment performed?: Yes Alcohol Intake: current Alcohol Intake frequency: a few times a month Drug use: Never Substance use type: does not use Do you feel safe at home: Yes Do you feel safe in your relationship?: Yes Exam Const General: cooperative, healthy appearing, comfortable and no acute distress Orientation: alert, awake and oriented x3 HENMT Head: normal to inspection, normocephalic and atraumatic Ears: external ears normal, TM's normal bilaterally and EAC's normal General nose exam: external nose normal Face and sinus: normal facial exam Mouth: oral mucosae normal and moist mucous membranes Eyes General: appearance normal, both eyes and all related structures Alignment and Position: alignment normal Periorbital: periorbital findings normal Eyelids: eyelids normal Conjunctivae: conjunctivae normal Sclera: sclerae normal Cornea: corneas normal Pupils: PERRL EOM: EOM intact bilaterally Direct ophthalmoscopy: normal light reflex Neck Neck: normal visual inspection, full ROM, no lymphadenopathy, no meningeal signs, trachea midline, supple and nontender Resp Effort & Inspection: normal respiratory effort and able to speak in complete sentences Auscultation: clear to auscultation bilaterally Cardio Rate: regular rate Rhythm: regular rhythm GI Palpation: soft and nontender Skin General skin exam: no rashes or lesions noted Neuro General: patient alert, patient awake, patient oriented x3, moves all extremities and no focal motor deficits Cranial Nerves: CN's II-XI intact bilaterally Cognition: normal cognition Speech: speech normal Gait: normal gait Motor: muscle tone normal throughout, strength 5/5 throughout, no movement abnormalities noted and no fasciculations Sensory Exam: no sensory deficits noted Coordination: Does not sway with eyes open Extrem General: normal to inspection and full ROM Psych Appearance: grossly normal Mental Status: mental status grossly normal Course Vital Signs Vital signs: Vital Signs Temperature 36.2 C L 05/04/21 22:05 Pulse 69 05/04/21 22:05 Respiratory Rate 18 05/04/21 22:05 Blood Pressure 131/80 05/04/21 22:05 Pulse Oximetry 98 05/04/21 22:05 Temperature 36.2 C L 05/04/21 22:05 Temperature Source Temporal Artery Scan 05/04/21 22:05 Pulse 69 05/04/21 22:05 Respiratory Rate 18 05/04/21 22:05 Respiratory Effort 05/04/21 22:09 Blood Pressure 131/80 05/04/21 22:05 Blood Pressure Position Supine 05/04/21 22:05 Pulse Oximetry 98 05/04/21 22:05 Oxygen Delivery Method Room Air 05/04/21 22:05 Oxygen Flow Rate 0 05/04/21 22:05 Pain Level 7 05/04/21 22:10
[2021-05-04] MEDS: Normal Saline 1,000 ML 1000 ML IV (22:40)
[2021-05-04] MEDS: diphenhydrAMINE 50 MG/ML VIAL IVP (22:40)
[2021-05-04] MEDS: Ketorolac 30 MG/ML VIAL IVP (22:40)
[2021-05-04] MEDS: Metoclopramide 10 MG/2 ML VIAL IVP (22:40)
== END 2021-05-04 23:39 | disposition home or self-care (01) ==
PROVIDERS: Emergency Provider Physician Assistant; PCP Physician Assistant
DX: G43.909 Migraine, unspecified, not intractable, without status migrainosus (principal)
CPT/HCPCS: 81025; 96361; 96374; 96375; 99284; 99283; J1200; J1885; J2765

== ENCOUNTER 2021-06-07 16:16 | Outpatient (REF) | payer BC, MEDICAID, SELFPAY ==
[2021-06-09 13:04] LABS: COVID-19 RT-PCR UVMMC Result Negative (Negative)
== END 2021-06-07 16:17 | disposition home or self-care (01) ==
LOC: NCHCN 16:16
PROVIDERS: PCP Physician Assistant; Visit Provider Nurse Practitioner Family
DX: Z20.822 Contact with and (suspected) exposure to COVID-19 (principal); J02.9 Acute pharyngitis, unspecified
CPT/HCPCS: U0003

== ENCOUNTER 2021-10-28 15:02 | Emergency (ER) | payer MEDICAID, SELFPAY ==
--- OUTSIDE RECORDS SUMMARY | 2021-10-28 15:07 | XMS_ITS | Encounter Summary ---
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 Primary Care Provider Puneet Borrego RPA Primary Care Provider [phone] Reason for Visit Reason Comments Other Encounter Details Date Type Department Care Team Description 07/09/2021 Refill [facility] Gallo Small, DRIVEMATIC MACHINE OPERATOR Other Medicine - [address] [phone] (Wo rk) Social History Tobacco Use Types Packs/Day Years Used Date Former Smoker Cigarettes 0 13 Quit: 05/10/19 16 Smokeless Tobacco: Never Used Comments: quit 06/26 Alcohol Use Standard Drinks/Week Comments Yes 0 (1 standard drink = 0.6 oz pure alcoho l) rare Alcohol Habits Answer Date Recorded How often do you have a drink containing alcohol? Not asked How many drinks containing alcohol do you have on a typical Not asked day when you are drinking? How often do you have six or more drinks on one occasion? No t asked Comment: rare 11/22/2018 Food Insecurity Answer Date Recorded Within the past 12 months, you worried that your food Someti mes true 06/20/2019 would run out before you got money to buy more. Within the past 12 months, the food you bought just Never tr ue 06/20/2019 didn't last and you didn't have money to get more. Sex Assigned at Date Recorded Female 02/20/2019 13:04 EST documented as of this encounter Functional Status Functional Status Response Date of Assessment Are you deaf or do you have serious difficulty hearing? No 10/30/2019 Are you blind or do you have serious difficulty seeing, No 10/30/2019 even when wearing glasses? Do you have serious difficulty walking or climbing No 10/30/2019 stairs? (5 years old or older) Do you have difficulty dressing or bathing? (5 years old No 10/30/2019 or older) Because of a physical, mental, or emotional condition, do No 10/30/2019 you have difficulty doing errands alone such as visiting a doctor's office or shopping? (15 years old or older) Cognitive Status Response Date of Assessment Because of a physical, mental, or emotional condition, do No 10/30/2019 you have serious difficulty concentrating, remembering, or making decisions? (5 years old or older) documented as of this encounter Miscellaneous Notes Telephone Encounter - Justin Ryan RN - 07/11/2021 1939 EDT Medication(s) Requested: Sertraline Preferred Pharmacy: [facility] Is patient out of medication? Unknown Last Refill Date: 12/03/20 Last Visit Date with Ordering Provider: Visit date not found Next Non-Acute Visit Date Scheduled with Care Team: Visit date not found JUSTIN RYAN RN 07/11/2021 19:39 documented in this encounter Plan of Treatment Not on filedocumented as of this encounter Visit Diagnoses Not on filedocumented in this encounter Care Teams Sales And Service Change Leader Relationship Specialty Start Date End Date Gallo Small NP PCP - General Family Medicine - Primary 07/02/19 07/11/21 Care Puneet Borrego RPA PCP - General Family Medicine - Primary 07/12/[address] [place] [id number] documented as of this encounter
--- OUTSIDE RECORDS SUMMARY | 2021-10-28 15:07 | XMS_ITS | Encounter Summary ---
:1990 Author Organization [facility] [place] [address] Care Team Providers Name Role Phone None Primary Care Provider Unavailable Reason for Visit Reason Onset Date Comments Other 10/22/2013 Returned call Encounter Details Date Type Department Care Team Description 10/22/2013 Telephone [place] [facility] [place]ter Esquivel MD Other (Returned call) [facility] [address] [place] [address] NEUROLOGY DEPT [phone] [place] [id number] (Wo rk) Social History Tobacco Use Types Packs/Day Years Used Date Current Every Day Smoker Cigarettes 0.25 7 Smokeless Tobacco: Never Used Alcohol Use Standard Drinks/Week Comments Yes 0 (1 standard drink = 0.6 oz pure alcoho l) Occasional Alcohol Habits Answer Date Recorded How often do you have a drink containing alcohol? Not asked How many drinks containing alcohol do you have on a typical Not asked day when you are drinking? How often do you have six or more drinks on one occasion? No t asked Comment: Occasional 09/11/2012 Physical Activity Answer Date Recorded On average, how many days per week do you engage in moderate 0 days 07/21/2021 to strenuous exercise (like walking fast, running, jogging, dancing, swimming, biking, or other activities that cause a light or heavy sweat)? On average, how many minutes do you engage in exercise at No t asked this level? Financial Resource Strain Answer Date Recorded How hard is it for you to pay for the very basics like Somew hat hard 07/21/2021 food, housing, medical care, and heating? Food Insecurity Answer Date Recorded Within the past 12 months, you worried that your food Someti mes true 07/21/2021 would run out before you got money to buy more. Within the past 12 months, the food you bought just Sometime s true 07/21/2021 didn't last and you didn't have money to get more. Transportation Needs Answer Date Recorded In the past 12 months, has lack of transportation kept you f rom No 07/21/2021 medical appointments or from getting medications? In the past 12 months, has lack of transportation kept you f rom No 07/21/2021 meetings, work, or getting things needed for daily living? Housing Stability Answer Date Recorded In the last 12 months, was there a time when you were not ab le Yes 07/21/2021 to pay the mortgage or rent on time? In the last 12 months, how many places have you lived? 1 07/21/2021 In the last 12 months, was there a time when you did not hav e a No 07/21/[address] to [address] or slept in a retirement (including now)? Sex Assigned at Date Recorded Not on file documented as of this encounter Miscellaneous Notes Telephone Encounter - Dexter Esquivel - 10/24/2013 4:03 PM EDT Called and left voice mail. Telephone Encounter - Iar Matthews - 10/22/2013 8:54 AM EDT The patient is returning you call. documented in this encounter Plan of Treatment Not on filedocumented as of this encounter Visit Diagnoses Not on filedocumented in this encounter Care Teams Patient Access Associate Relationship Specialty Start Date End Date None PCP - General 01/23/12 05/11/21 None documented as of this encounter
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
--- OUTSIDE RECORDS SUMMARY | 2021-10-28 15:07 | XMS_ITS | Encounter Summary ---
:1990 Author Organization [facility] Address [address] [place] [address] Care Team Providers Name Role Phone Gallo Small AIR CONDITIONING COIL ASSEMBLER Primary Care Provider Reason for Visit Reason Onset Date Comments Medications Refill 04/09/2020 Encounter Details Date Type Department Care Team Description 04/09/2020 Refill [facility] Family Gallo Small, AIR CONDITIONING COIL ASSEMBLER Medications Refill [address] [address] [place] [address] [phone] Social History Tobacco Use Types Packs/Day Years [...] or older) documented as of this encounter Ordered Prescriptions Prescription Sig Dispensed Refills Start Date End Date sertraline (ZOLOFT) 50 mg Take 1 Tab by mouth 30 Tab 2 0 04/12/2020 08/18/2020 tablet daily. documented in this encounter Miscellaneous Notes Telephone Encounter - Des Siddiqui RN - 04/12/2020 1243 EST Medication(s) Requested: sertaline 50mg Preferred Pharmacy: [facility] Is patient out of medication? Unknown Last Refill Date: 12/24/19 Last Visit Date with Ordering Provider: 12/31/19 Next Non-Acute Visit Date Scheduled with Care Team: No. DES SIDDIQUI RN 04/12/2020 12:43 elephone Encounter - Des Siddiqui RN - 04/12/2020 1243 EST From: Renetta Bradley To: Office of Gallo Small APRN Sent: 04/09/2020 15:20 EST Subject: Medication Renewal Request Refills have been requested for the following medications: sertraline (ZOLOFT) 50 mg tablet [Gallo Small APRN] Preferred pharmacy: [id number] documented in this encounter Plan of Treatment Not on filedocumented as of this encounter Visit Diagnoses Not on filedocumented in this encounter Discontinued Medications Medication Sig Discontinue Reason Start Date End Date sertraline (ZOLOFT) 50 mg Take 1 Tab by mouth Reorder 12/24/19 20 04/09/2020 tablet daily. documented as of this encounter Care Teams Wire Insulator Relationship Specialty Start Date End Date Gallo Small NP PCP - General Family Medicine - Primary 07/02/19 07/11/21 Care documented as of this encounter
--- OUTSIDE RECORDS SUMMARY | 2021-10-28 15:07 | XMS_ITS | Encounter Summary ---
:1990 Author Organization [facility] Address [address] [place] [address] Care Team Providers Name Role Phone Gallo Small NP Primary Care Provider Puneet Borrego RPA Primary Care Provider [phone] Encounter Details Date Type Department Care Team Description 09/17/2020 Lab Requisition [facility] Ellie Ramos for other Pathology & MD Jose general examination Laboratory Medicine [address] [facility] [address] [place], [place] Pavilion, Level [id number] [place] [phone] (Wo rk) Social History Tobacco Use Types Packs/Day Years Used Date Never Assessed Food Insecurity Answer Date Recorded Within the [...] or older) documented as of this encounter Plan of Treatment Not on filedocumented as of this encounter Procedures Procedure Name Priority Date/Time Associated Diagnosis Comme nts PAP TEST Today 09/17/2020 16:00 Encounter for other Resu lts for this EDT general examination procedur e are in the results section. CHLAMYDIA/N. Today 09/17/2020 16:00 Results for this GONORRHOEAE EDT procedure are i n AMPLIFIED RNA, the results THINPREP section. documented in this encounter Results PAP TEST (09/17/2020 16:00 EDT) Specimens A. Cervix and/or [facility] Endocervix , ThinPrep CENTER Imaging System with LABORATORY Manual Evaluation SERVICES Specimen Adequacy Satisfactory for Evaluation - transformation zone component present [facility] Scant squamous epithelial component [facility]ENTE R LABORATORY SERVICES General Negative for [facility] intraepithelial CENTER lesion or malignancy LABORATORY SERVICES Attestation . [facility] CENTER signed by Mustapha frazier LABORATORY ASHELY Evans(A SCP) SERVICES on 09/30/2020 at 1532 Clinical History See below [facility] SERVICES Performing Lab [facility] SERVICES Scanned Images [facility] SERVICES Specimen Pap Test - Cervix and/or Endocervix Performing Organization Address City/State/ZIP Code Phon e Number [facility] [address] [place] [address] SERVICES CHLAMYDIA/N. GONORRHOEAE AMPLIFIED RNA, THINPREP (09/17/2020 16:00 EDT) Pathologist Sig nature Gonococcus Result Negative Negative [facility] SERVICES Chlamydia Result Negative Negative [facility] SERVICES Specimen Pap Test - Cervix and/or Endocervix Performing Organization Address City/[facility]/ZIP Code Phon e Number [facility] [address] [place] [address] SERVICES documented in this encounter Visit Diagnoses Diagnosis Encounter for other general examination documented in this encounter Care Teams Content Checker Relationship Specialty Start Date End Date Gallo Small PUBLIC HEALTH TRAINING ASSISTANT PCP - General Family Medicine - Primary 07/02/19 07/11/21 Care Puneet Borrego RPA PCP - General Family Medicine - Primary 07/12/[address] [place] [id number] documented as of this encounter
--- OUTSIDE RECORDS SUMMARY | 2021-10-28 15:07 | XMS_ITS | Encounter Summary ---
:1990 Author Organization [facility] [place] [address] Care Team Providers Name Role Phone None Primary Care Provider Unavailable Reason for Visit Reason Comments Medication Refill Encounter Details Date Type Department Care Team Description 08/06/2014 Refill [place] [facility] Brittnee Khalil MD [facility] vik [facility] [place] [address] NEUROLOGY DEPT. [phone] [place], [place] [address] (Wo rk) Social History Tobacco Use Types [...] place to sleep or slept in a [facility] (including now)? Sex Assigned at Date Recorded Not on file documented as of this encounter Plan of Treatment Not on filedocumented as of this encounter Visit Diagnoses Not on filedocumented in this encounter Care Teams Preparer Samples And Repairs Relationship Specialty Start Date End Date None PCP - General 01/23/12 05/11/21 None documented as of this encounter
--- OUTSIDE RECORDS SUMMARY | 2021-10-28 15:07 | XMS_ITS | Encounter Summary ---
:1990 Author Organization [place] [address] Care Team Providers Name Role Phone None Primary Care Provider Unavailable Reason for Visit Reason Onset Date Comments Prior Authorization 01/30/2012 CARMELA FOR LAMICTAL XR F AXED Encounter Details Date Type Department Care Team Description 01/30/2012 Telephone [place]rology [place] [facility] Quinn Gutiérrez Prior Authorization (CARMELA [facility] MD Epifanio FOR LAMICTAL XR FAXED) [place] [address] NEUROLOGY DEPT. [phone] [place], [place] [address] (Wo rk) Social History Tobacco Use Types Packs/Day Years Used Date Former Smoker Cigarettes 1 7 Quit: 01/23/20 11 Smokeless Tobacco: Never Used Alcohol Use Standard Drinks/Week Comments Yes 0 (1 standard drink = 0.6 oz pure alcoho l) occasionally Alcohol Habits Answer Date Recorded How often do you have a drink containing alcohol? Not asked How many drinks containing alcohol do you have on a Not aske d typical day when you are drinking? How often do you have six or more drinks on one occasion? No t asked Comment: occasionally 01/23/2012 Physical Activity Answer Date Recorded On average, [...] 12 months, you worried that your food Somevipin mes true 07/21/2021 would run out before [...] place to sleep or slept in a fpc (including now)? Sex Assigned at Date Recorded Not on file documented as of this encounter Miscellaneous Notes Telephone Encounter - Jie Andersen LPN - 02/02/2012 8:15 AM EDT Prior Authorization PT ID: [id number] Insurance: [place] Provider: Elias Gutiérrez MD [facility]acy: [facility] Medication & Dose: Lamictal XR 25 mg tab: take 2 tabs daily Good for all strengths of drug Diagnosis: ? Of seizures Currently being evaluated Approved: 02/02/12 to 02/01/13 Other medications tried: 1. Keppra -- intolerable side effects of irritability, bloody gums 2. Dilantin -- intolerable side effects of overwhelming fatigue 3. topamax -- Word finding difficulty and difficulty thinking 4. Lamictal 2012 Telephone Encounter - Claudia Trotter - 01/30/2012 1:37 PM EDT CARMELA FOR LAMICTAL XR FAXED TO [facility] documented in this encounter Plan of Treatment Not on filedocumented as of this encounter Visit Diagnoses Not on filedocumented in this encounter Care Teams Retoucher Photoengraving Relationship Specialty Start Date End Date None PCP - General 01/23/12 05/11/21 None documented as of this encounter
--- OUTSIDE RECORDS SUMMARY | 2021-10-28 15:07 | XMS_ITS | Encounter Summary ---
:1990 Author Organization [facility] [place] [address] Care Team Providers Name Role Phone None Primary Care Provider Unavailable Reason for Visit Reason Onset Date Comments Medication Refill 01/23/2012 Encounter Details Date Type Department Care Team Description 01/23/2012 Refill Neurology at [facility] Quinn Gutiérrez MD [facility] [place] [address] NEUROLOGY DEPT. [phone] [place], [place] [address] (Wo rk) Social History Tobacco [...] months, you worried that your food Somevipin rivas true 07/21/2021 would run out before you [...] place to sleep or slept in a care home (including now)? Sex Assigned at Date Recorded Not on file documented as of this encounter Miscellaneous Notes Telephone Encounter - Char Carbone LPN - 01/25/2012 10:29 AM EDT Left message for patient re: Rx has been done. Telephone Encounter - Char Carbone LPN - 01/23/2012 3:47 PM EDT Patient states the provider that prescribed the lamotrigine would not give her a refill. He wanted her to wait until she saw a neurologist . Patient states she has been out of the medication for a couple of days. She request that Dr. Gutiérrez fill Rx if he still wants her on it. Rx request sent to Dr. George documented in this encounter Plan of Treatment Not on filedocumented as of this encounter Visit Diagnoses Not on filedocumented in this encounter Care Teams [place] Seamer Relationship Specialty Start Date End Date None PCP - General 01/23/12 05/11/21 None documented as of this encounter
--- OUTSIDE RECORDS SUMMARY | 2021-10-28 15:07 | XMS_ITS | Encounter Summary ---
:1990 Author Organization [facility] [place] [address] Care Team Providers Name Role Phone None Primary Care Provider Unavailable Reason for Visit Reason Onset Date Comments Prior Authorization 07/18/2013 PA NOT NEEDED FOR LA MICTAL XR (BRAND) Encounter Details Date Type Department Care Team Description 07/18/2013 Telephone Neurology at [facility] Kunal Smalls, Prior Authorization ([facility]ARMELA [facility] NOT NEEDED FOR LAMICTAL Drive [facility] XR (BRAND)) [place] [address] NEUROLOGY DEPT. [place], [place] [address] Social History Tobacco Use Types [...] this encounter Miscellaneous Notes Telephone Encounter - Claudia Trotter - 08/12/2013 9:43 AM EDT PA NOT NEEDED FOR LAMICTAL XR (BRAND) PER [facility] FAX. Telephone Encounter - Claudia Trotter - 08/11/2013 10:18 AM EDT REC'D FAX FROM INSURANCE ASKING FOR MORE INFO. FAXED Telephone Encounter - Claudia Trotter - 07/18/2013 3:24 PM EDT PA FOR LAMICTAL XR (BRAND) FAXED TO [email or web address]. documented in this encounter Plan of Treatment Not on filedocumented as of this encounter Visit Diagnoses Not on filedocumented in this encounter Care Teams Airbrush Artist Photography Relationship Specialty Start Date End Date None PCP - General 01/23/12 05/11/21 None documented as of this encounter
--- OUTSIDE RECORDS SUMMARY | 2021-10-28 15:07 | XMS_ITS | Encounter Summary ---
:1990 Author Organization [facility] [place] [address] Care Team Providers Name Role Phone None Primary Care Provider Unavailable Encounter Details Date Type Department Care Team Description 07/18/2016 Telephone Neurology at [facility] Quinn Gutiérrez MD [facility] [place] [address] NEUROLOGY DEPT. [phone] [place], [place] [address] (Wo rk) Social History Tobacco Use Types Packs/Day Years Used Date Former Smoker Cigarettes 0.25 7 Quit: 05/29/19 15 Smokeless Tobacco: Never Used Alcohol Use Standard [...] place to sleep or slept in a chcf (including now)? Sex Assigned at Date Recorded Not on file documented as of this encounter Miscellaneous Notes Telephone Encounter - Maurice Burciaga RN - 07/24/2016 9:32 AM EDT Attempted to return call still no answer or voicemail. Maurice Telephone Encounter - Maurice Burciaga RN - 07/21/2016 9:08 AM EDT Attempted to return call again, no answer and no voicemail available. Maurice Telephone Encounter - Maurice Burciaga RN - 07/19/2016 9:23 AM EDT Quinn Gutiérrez MD sent to Maurice Burciaga RN ? Caller: Unspecified (Yesterday, ??4:24 PM) ? I did not see her in 2014, only 2011 with fellow. ??She needs an appointment before we can answeranything. ? Previous Messages Attempted to return call no answer and no voicemail available. Maurice Telephone Encounter - Maurice Burciaga RN - 07/18/2016 4:[address] Gutiérrez, Spoke with Renetta, her last visit was August of 2014, she said she has been seizure free since. She said she has had no issues up until 5 days ago, she has been waking up in the morning with muscle weakness and soreness to the point that she almost fell d/t her legs being weak. Today she was lying on the sofa and had an episode she describes as being in a dream but not she could see her cat lying next to her on the sofa, she said she went in and out of this several times. She said this is not anything like the seizures she use to experience, previously she had GTC where she would bite her tongueand was incontinent of urine. She's concerned that this could be new seizure activity. She has been off all medications for over a year. She denies any recent illness or new stressors. Please advise. Maurice Bradley RN documented in this encounter Plan of Treatment Not on filedocumented as of this encounter Visit Diagnoses Not on filedocumented in this encounter Care Teams Chart Computer Relationship Specialty Start Date End Date None PCP - General 01/23/12 05/11/21 None documented as of this encounter
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
--- OUTSIDE RECORDS SUMMARY | 2021-10-28 15:07 | XMS_ITS | Encounter Summary ---
:1990 Author Organization [place] [address] Care Team Providers Name Role Phone None Primary Care Provider Unavailable Reason for Visit Reason Onset Date Comments Medication Refill 08/16/2012 Encounter Details Date Type Department Care Team Description 08/16/2012 Refill Neurology at [facility] Shay Mckeon MD [facility] [address] [facility] [phone] [place], [place] [address] (Wo rk) Social History Tobacco Use Types Packs/Day Years Used Date Current Every Day Smoker Cigarettes 0.5 7 Hugo t: 01/22/2011 Smokeless Tobacco: Never Used Alcohol Use Standard [...] months, you worried that your food Somevipin rivsa true 07/21/2021 would run out before you [...] place to sleep or slept in a usp (including now)? Sex Assigned at Date Recorded Not on file documented as of this encounter Miscellaneous Notes Telephone Encounter - Shay Mckeon MD - 08/16/2012 9:25 AM EDT Refilled Rx Shay Mckeon III, MD Telephone Encounter - Patti Arellano - 08/16/2012 9:16 AM EDT Patient called for prescription refill for: Patient will be out of the medication on Sunday Name of Med: Lamictal Strength of Pills:25 mg Dosing Directions: take two tablets twice daily 30 or 90 Day: 30 [facility]acy: [facility] [place] Last Appointment: Next Appointment:09/2012 documented in this encounter Plan of Treatment Not on filedocumented as of this encounter Visit Diagnoses Not on filedocumented in this encounter Care Teams Gridcap Machine Operator Relationship Specialty Start Date End Date None PCP - General 01/23/12 05/11/21 None documented as of this encounter
--- OUTSIDE RECORDS SUMMARY | 2021-10-28 15:07 | XMS_ITS | Encounter Summary ---
:1990 Author Organization [facility] [address] Care Team Providers Name Role Phone None Primary Care Provider Unavailable Reason for Visit Reason Onset Date Comments Seizures 06/22/2012 Encounter Details Date Type Department Care Team Description 06/23/2012 Telephone [place]rology [place] [facility] Miguel Pereira Jr., MD Seizures [facility] [place] [address] NEUROLOGY DEPT [phone] [place], [place] [address] (Wo rk) Social History Tobacco [...] place to sleep or slept in a senior living (including now)? Sex Assigned at Date Recorded Not on file documented as of this encounter Miscellaneous Notes Telephone Encounter - Miguel Pereira Jr. - 06/23/2012 11:29 AM EDT Pt called to report a seizure on the morning of 06/22. She was concerned because she had an extended period of sleepiness, headache, nausea and poor PO intake. Given that she was not recovering as usual, I recommended that she find a way to the nearest ED. I let her know that we would be happy to discuss the case with the physicians there, and share any information to facilitate her care. I also let her know that she can call back with any questions. documented in this encounter Plan of Treatment Not on filedocumented as of this encounter Visit Diagnoses Not on filedocumented in this encounter Care Teams Fruit Pitter Relationship Specialty Start Date End Date None PCP - General 01/23/12 05/11/21 None documented as of this encounter
--- OUTSIDE RECORDS SUMMARY | 2021-10-28 15:07 | XMS_ITS | Encounter Summary ---
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 was no abnormal interictal epilept iform activity. There was one generalized sharp wave following an arousal from sleep that was a little suspicious. but probably represents a vertex wave as she becomes drowsy again and goes back to sleep Events: There were no clinical events reported a nd no subclinical electrographic seizures detected. Seizure #* Date: * Clinical onset:* Electrical onset:* Clinical manifestations:* EEG: * Hyperventilation and photic stimulation: Hyperventilation and photic stimulation was performed as part of the monitoring. This did not result in any clinical manifestations or electrical abnormal activity. EKG: EKG revealed normal sinus rhythm th roughout. INTERPRETATION: Normal shelter monitoring EEG without epileptiform activity or clinical events. Continue monitoring, with provocative maneuvers, to try and capture seizures and make a definite diagnosis. Lela Dos Santos MD [place] [address] Pager: [phone], #[phone] Email: [email or web address] Lela Dos Santos MD NEUROLOGY ORDERABLES ZVIDEO EEG MONITORING (03/08/2012 10:58 PM EST) Narrative Lela Dos Santos MD - 03/08/2012 10:58 PM EST LELA DOS SANTOS ? 03/08/2012 ? 10:58:13 PM [facility] VIDEO EEG MONITORING REPORT Date of Recording: March 072011 Interpreting Physician: Lela Teran BRIEF HISTORY/INDICATION FOR STUDY: Patient appears to have generalized conv ulsive seizures, but there has been some doubt as to whether these are epileptic. Video EEG monitoring was performed to es tablish a diagnosis. Current Medications: ??The patient is cu rrently on no antiepileptic medications. She has been off Lamictal for 3 days METHODS: Video/EEG monitoring was performed in e inpatient epilepsy shelter monitoring unit using 24 hour video and 18 channel EEG coverage. The 10/20 international system of electrode placement was used. In addition to EEG the patient was monitored for EKG and lateral/vertical eye movements. The record was read using reformatted bipolar and referential elec trode montages. ??Digital signal processing, seizure and spike det ection methods were applied. DESCRIPTIVE TEXT: Background activity: During the awake state with the eyes anton sed the background consisted of a medium amplitude, 9-10 Hz posterior reactive rhythm that attenuated appropriately wit h eye opening. Beta activity was distributed diffusely with an anterior predominance. There was a normal anterior-posterior vo ltage gradient. With eyes open the background activity changed to a low voltage mixture of alpha, beta, and occasional theta range frequencies. There were no significant asymmetries of background activity. With drowsiness there was some waxing an d waning of the alpha rhythm with eventual replacement by a mixture of bet a, alpha and theta activity. As the patient entered stage I I of sleep, symmetrical spindles and vertex sharp waves were pre sent. Sleep stage III and IV with prominent high amplitude delta s lowing as well as REM sleep with rapid eye movements and faste r background rhythms were recorded. Arousal was unremarkable. Interictal findings: There was no abnormal interictal epilept iform activity. Events: There were no clinical events reported a nd no subclinical electrographic seizures detected. Seizure #* Date: * Clinical onset:* Electrical onset:* Clinical manifestations:* EEG: * Hyperventilation and photic stimulation: Hyperventilation and photic stimulation was performed as part of the monitoring. This did not result in a ny clinical manifestations or electrical abnormal ac tivity. EKG: EKG revealed normal sinus rhythm th roughout. INTERPRETATION: Normal manager long term care monitoring EEG without epileptiform activity or clinical events. Continue monitoring, wi th provocative maneuvers, to try and capture seizures and make a d efinite diagnosis. Lela Dos Santos MD [place] [address] Pager: [phone], #[phone] Email: [email or web address] Procedure Note Lela Dos Santos MD - 03/08/2012 10:54 PM EST [facility] VIDEO EEG MONITORING REPORT Date of Recording: March 072011 Interpreting Physician: Lela Teran BRIEF HISTORY/INDICATION FOR STUDY: Patient appears to have generalized conv ulsive seizures, but there has been some doubt as to whether these are epileptic. Video EEG monitoring was performed to es tablish a diagnosis. Current Medications: The patient is curr ently on no antiepileptic medications. She has been off Lamictal for 3 days METHODS: Video/EEG monitoring was performed in [facility] inpatient epilepsy manager long term care monitoring unit using 24 hour video and 18 channel EEG coverage. The 10/20 international system of electrode placement was used. In addition to EEG the patient was monitored for EKG and la teral/vertical eye movements. The record was read using reformatted bipolar and referential electrode montages. Digital signal processing, seizure and spike detection methods were applied. DESCRIPTIVE TEXT: Background activity: During the awake state with the eyes anton sed the background consisted of a medium amplitude, 9-10 Hz posterior reactive rhythm that attenuated appropriately with eye opening. Beta activity was distributed diffusely with an anterior predominance. There was a normal anterior-posterior voltage gradient. With eyes open the background activity changed to a low voltage mixture of alpha, beta, and occasional theta range frequencies. There were no significant asymmetries of background activity. With drowsiness there was some waxing an d waning of the alpha rhythm with eventual replacement by a mixture of bet a, alpha and theta activity. As the patient entered stage II of sleep, symmetrical spindles and vertex sharp waves were present. Sleep stage III and IV with prominent high amplitude delta slowing as well as REM s leep with rapid eye movements and faster background rhythms were recorded. Arousal was unremarkable. Interictal findings: There was no abnormal interictal epilept iform activity. Events: There were no clinical events reported a nd no subclinical electrographic seizures detected. Seizure #* Date: * Clinical onset:* Electrical onset:* Clinical manifestations:* EEG: * Hyperventilation and photic stimulation: Hyperventilation and photic stimulation was performed as part of the monitoring. This did not result in any clinical manifestations or electrical abnormal activity. EKG: EKG revealed normal sinus rhythm [facility]. INTERPRETATION: Normal shelter monitoring EEG without epileptiform activity or clinical events. Continue monitoring, with provocative maneuvers, to try and capture seizures and make a definite diagnosis. Lela Dos Santos MD [place] [address] Pager: [phone], #[phone] Email: [email or web address] Lela Dos Santos MD NEUROLOGY ORDERABLES EEG video monitoring (03/08/2012 4:42 AM EST) Narrative Anni Dougherty MD - 03/08/2012 4:42 A M EST ANNI DOUGHERTY ? 03/08/2012 ? 4:42:59 AM CANVASSING MANAGER VIDEO EEG MONITORING REPORT Date of Recordin/27-03/06/2012 Interpreting Physician: Anni Dougherty MD, PhD [Attending] Shay Mckeon III, MD [Fellow] BRIEF HISTORY/INDICATION FOR STUDY: ?? 22-year-old right-handed female presents with episodes of loss of awareness with generalized shaking. Vide o EEG monitoring was performed to establish a diagnosis. MEDICATIONS The patient is currently on no antiepile ptic medications. METHODS: Video/EEG monitoring was performed in e inpatient epilepsy shelter monitoring unit using 24 hour video and 18 channel EEG coverage. The 10/20 international system of electrode placement was used. In addition to EEG the patient was monitored for EKG and lateral/vertical eye movements. The record was read using reformatted bipolar and referential elec trode montages. ??Digital signal processing, seizure and spike det ection methods were applied. OBSERVATIONS: Background Activity During the awake state with the eyes anton sed the background consisted of a 10 Hz posterior reactive rhythm that attenuated appropriately with eye opening. Beta act ivity was distributed diffusely with an anterior predominance. There was a normal anterior-posterior voltage gradient. Wit h eyes open the background activity changed to a low vol tage mixture of alpha, beta, and occasional theta range frequen cies. There were no significant asymmetries of background ac tivity. With drowsiness there was some waxing and waning of the alpha rhythm with eventual replacement by a mixture of bet a, alpha and theta activity. As the patient entered stage I I of sleep, symmetrical spindles and vertex sharp waves were pre sent. Sleep stage III and IV with prominent high amplitude delta s lowing as well as REM sleep with rapid eye movements and faste r background rhythms were recorded. Arousal was unremarkable. Interictal Findings There was no abnormal interictal epilept iform activity. Events There were no clinical events reported a nd no subclinical electrographic seizures detected. EKG EKG revealed normal sinus rhythm through out. INTERPRETATION Normal shelter EEG monitoring without epileptiform activity or clinical events. CONCLUSION Continue video/EEG monitoring. Shay Mckeon III, MD EPILEPSY ATTENDING ADDENDUM - I personally reviewed and interpreted [facility] EEG in its entirety along with the EMPLOYEE COMMUNICATIONS MANAGER fellow, and I agree w ith the above interpretation as documented. Anni Dougherty MD, PhD Apns of Neurology [facility] Clinical Neurophysiology Laboratory Procedure Note Anni Dougherty MD - 03/06/2012 11:38 AM EST CANVASSING MANAGER VIDEO EEG MONITORING REPORT Date of Recordin/27-03/06/2012 Interpreting Physician: Anni Dougherty MD, PhD [Attending] Shay Mckeon III, MD [Fellow] BRIEF HISTORY/INDICATION FOR STUDY: 22-year-old right-handed female presents with episodes of loss of awareness with generalized shaking. Video EEG monitoring was performed to establish a diagnosis. MEDICATIONS The patient is currently on no antiepile ptic medications. METHODS: Video/EEG monitoring was performed in [facility] inpatient epilepsy shelter monitoring unit using 24 hour video and 18 channel EEG coverage. The 10/20 international system of electrode placement was used. In addition to EEG the patient was monitored for EKG and la teral/vertical eye movements. The record was read using reformatted bipolar and referential electrode montages. Digital signal processing, seizure and spike detection methods were applied. OBSERVATIONS: Background Activity During the awake state with the eyes anton sed the background consisted of a 10 Hz posterior reactive rhythm that attenuated appropriately with eye opening. Beta activity was distributed diffusely with an anterior predominance. There was a normal anterio r-posterior voltage gradient. With eyes open the background activity changed to a low voltage mixture of alpha, beta, and occasional theta range frequencies. There were no significant asymmetries of background ac tivity. With drowsiness there was some waxing and waning of the alpha rhythm with eventual replacement by a mixture of beta, alpha and theta activity. As the patient entered stage II of sleep, symmetrical spindles and verte x sharp waves were present. Sleep stage III and IV with prominent high amplitude delta slowing as well as REM sleep with rapid eye movements and faster background rhythms were recorded. Arousal was unremarkable. Interictal Findings There was no abnormal interictal epilept iform activity. Events There were no clinical events reported a nd no subclinical electrographic seizures detected. EKG EKG revealed normal sinus rhythm through out. INTERPRETATION Normal shelter EEG monitoring without epileptiform activity or clinical events. CONCLUSION Continue video/EEG monitoring. Shay Mckeon III, MD EPILEPSY ATTENDING ADDENDUM - I personally reviewed and interpreted [facility] EEG in its entirety along with the EMPLOYEE COMMUNICATIONS MANAGER fellow, and I agree with the above interpretation as documented. Anni Dougherty MD, PhD Apns of [facility] Clinical Neurophysiology Laboratory Tin Kay MD NEUROLOGY ORDERABLES DIFFERENTIAL, AUTOMATED (03/05/2012 7:12 PM EST) P athologist Signature Neutrophils % 58.2 34.0 - CERNER 71.0 % MILLENNIUM Neutr Abs (ANC) 4.85 1.50 - CERNER 6.30 MILLENNIUM x10(3)/mcL Lymphocytes % 34.5 19.0 - CERNER 53.0 % MILLENNIUM Lymphocytes Abs 2.9 1.0 - 3.6 CERNER x10(3)/mcL MILLENNIUM Monocytes % 4.8 4.0 - 13.0 CERNER % MILLENNIUM Monocyte Abs 0.4 0.2 - 1.0 CERNER x10(3)/mcL MILLENNIUM Eosinophils % 2.0 0.0 - 7.0 CERNER % MILLENNIUM Eosinophils Abs 0.2 0.0 - 0.5 CERNER x10(3)/mcL MILLENNIUM Basophils % 0.4 0.0 - 2.0 CERNER % MILLENNIUM Basophils [...] Location / / Volume Laterality Blood specimen 03/05/2012 7:12 PM 012 7:24 (specimen) EST PM EST Tin Kay MD HEMATOLOGY ORDERABLES Performing Organization Address City/[facility]/ZIP Code Phon e Number [address] CERNER MILLENNIUM Lamotrigine Lvl (03/05/2012 7:12 PM EST) athologist Signature Lamotrigine Lvl 0.3 2.5 - 15.0 CERNER mcg/mL MILLENNIUM Comment: Test Performed by: [place] [address] School Transportation Director: Michael castano III, M.D. Specimen Anatomical Collection Method Collection Time Receive d Time (Source) Location / / Volume Laterality Blood specimen 03/05/2012 7:12 PM 012 8:47 (specimen) EST AM EST Resulting Agency Comment Spec In Lab Tin Kay MD CHEMISTRY ORDERABLES Performing Organization Address City/[facility]/ZIP Code Phon e Number [address] CERNER MILLENNIUM Beta HCG, quantitative (03/05/2012 7:12 PM EST) athologist Signature Beta hCG Quant <1 mlU/ML CERNER MILLENNIUM Comment: REFERENCE RANGES NON- FEMALE: ??Less than 5 mIU/m L POSTMENOPAUSAL FEMALE: ??Less than 8 mIU /mL ? -- FEMALES -- Weeks of ? HCG range ??(mIU/mL) ? 3 weeks ? 5.8 - 71.2 ? 4 weeks ? 9.5 - 750 ? 5 weeks ? 217 - 7,138 ? 6 weeks ? 158 - 31,795 ? 7 weeks ? 3,697 - 163,563 ? 8 weeks ? 32,065 - 149,571 ? 9 weeks ? 63,803 - 151,410 ?10 weeks ? 46,509 - 186,977 ?12 weeks ? 27,832 - 210,612 ?14 weeks ? 13,950 - 62,530 ?15 weeks ? 12,039 - 70,971 ?16 weeks ? 9,040 - 56,451 ?17 weeks ? 8,175 - 55,868 ?18 weeks ? 8,099 - 58,176 Specimen Anatomical Collection Method Collection Time Receive d Time (Source) Location / / Volume Laterality Blood specimen 03/05/2012 7:12 PM 012 7:24 (specimen) EST PM EST Resulting Agency Comment Spec In Lab Tin Kay MD CHEMISTRY ORDERABLES Performing Organization Address City/State/[place] [address] CERNER MILLENNIUM (ABNORMAL) Comprehensive metabolic panel (non-fasting) (03/05/2012 7:12 PM EST) P athologist Signature Glucose Lvl 92 60 - 199 CERNER mg/dL MILLENNIUM Comment: Diabetes: >=200 mg/dL plus symp toms BUN 11 8 - 18 mg/dL CERNER MILLENNIUM Creatinine 0.59 (L) 0.70 - 1.20 mg/dL CERNER MILL ENNIUM Comment: Please note that the pediatric reference intervals supplied above were not validated at [facility]. Results from pediatri c patients should be interpreted in conjunction to the patient's age, height and muscle mass. Sodium 139 135 - 145 mmol/L CERNER ASHLEIGH NIUM Potassium 3.8 3.5 - 5.0 mmol/L CERNER ASHLEIGH NIUM Comment: Please note: ??Patients with WBC >100,00 0 may have falsely elevated Potassium levels. ??For accurate Potassium quantif ication in these patients send serum separator tube (gold top) for subsequent determinations. ??Contact the Clinical Chemistry Laboratory if there are any qu estions. Chloride 103 98 - 107 mmol/L CERNER MILLENN IUM CO2 25 22 - 31 mmol/L CERNER MILLENNI UM Anion Gap 11 5 - 15 mmol/L CERNER MILLENNIU M Calcium 8.9 8.5 - 10.5 mg/dL CERNER ASHLEIGH NIUM Total Protein 7.3 6.4 - 8.3 gm/dL CERNER MIL LENNIUM Albumin 4.5 3.2 - 5.2 gm/dL CERNER MILLENN IUM AST 22 0 - 30 unit/L CERNER MILLENNIU M ALT 18 0 - 30 unit/L CERNER MILLENNIU M Alk Phos 91 40 - 104 unit/L CERNER MILLENN IUM Total Bilirubin 0.2 0.2 - 1.3 mg/dL CERNER M ILLENNIUM Bili, Direct 0.1 0.0 - 0.3 mg/dL CERNER MILL ENNIUM Estimated GFR >60 >=60 CERNER MILLENNIU M Comment: The National Kidney Disease Education Pr ogram (NKDEP) has recommended all laboratories report estimated GFR (eGFR) along with plasma creatinine measurements to assist you with recognit ion of early kidney disease. Caveats: ??Plasma creatinine should be a t steady-state (unchanged within the past week). For patient s multiply eGFR by 1.2. The MDRD equation was developed using patients be tween the ages of 18 and 70 years. ?? The MDRD equation has not been validated for patients < 18 years of age and should not be used to assess renal function in the pediatric population. ??The MDRD eGFR equation will also overestimate the true GFR of patients above the age of 70. ??This overestimation is variable bu t increases with age. At present, NKDEP does NOT recommend usi ng the MDRD equation for drug dosing purposes and pharmacists should continue to use their current dosing methods. In addition, numerical eGFR values great er than 60 ml/min/1.73 square meters should be treated as > 60, and not an ex act number due to greater inaccuracies at these higher values. Per NKDEP, they classify normal renal function as any GFR >60ml/min/1.73 square meters; chronic kidney disease wh en GFR <60, and renal failure when GFR <15. ??This calculation may not be valid for patients with atypical muscle mass (very lean or obese), acute renal failur e, and in patients with diabetic kidney disease. References: http://nkdep.nih.gov/resources/NKDEP_Sug gestn4Labs_0606_508.pdf http://www.kidney.org/professionals/kls/ pdf/faq_gfr.pdf Fabio K, Ju NA, Jose AK, Harjeet TS, Amisha AD, Nakul MIGUEL. Relative performance of the MDRD and CKD-EPI equa tions for estimating glomerular filtration rate among patients with vari ed clinical presentations. Clin J Am Soc Nephrol;6:1963-72. Specimen Anatomical Collection Method Collection Time Receive d Time (Source) Location / / Volume Laterality Blood specimen 03/05/2012 7:12 PM 012 7:24 (specimen) EST PM EST Resulting Agency Comment Spec In Lab Tin Kay MD CHEMISTRY ORDERABLES Performing Organization Address City/State/ZIP Code Phon e Number [place] [id number] CERNER MILLENNIUM (ABNORMAL) CBC (with Diff) (03/05/2012 7:12 PM EST) P athologist Signature WBC 8.3 4.0 - 10.0 CERNER x10(3)/mcL MILLENNIUM RBC 4.97 3.93 - CERNER 5.22 MILLENNIUM x10(6)/mcL Hemoglobin 16.3 (H) 11.2 - CERNER 15.7 gm/dL MILLENNIUM Hematocrit 45.0 34.0 - CERNER 45.0 % MILLENNIUM MCV 90.5 79.0 - CERNER 94.0 fL MILLENNIUM MCH 32.8 (H) 26.6 - CERNER 32.2 pg MILLENNIUM MCHC 36.2 32.0 - CERNER 36.5 gm/dL MILLENNIUM Platelets 204 145 - 370 CERNER x10(3)/mcL MILLENNIUM RDWSD 41.8 35.0 - CERNER 46.0 fL MILLENNIUM RDWCV 12.7 10.9 - CERNER 14.4 % MILLENNIUM MPV 11.5 9.0 - 12.0 [facility] Specimen Anatomical Collection Method Collection Time Receive d Time (Source) Location / / Volume Laterality Blood specimen 03/05/2012 7:12 PM 012 7:24 (specimen) EST PM EST Resulting Agency Comment Spec In Lab Tin Kay MD HEMATOLOGY ORDERABLES Performing Organization Address City/State/[place] [address] [facility] EKG 12 Lead (03/05/2012 6:54 PM EST) [facility] gist Method Time Signature Ventricular rate 64 BPM MUSE SYSTEM Atrial Rate 64 BPM MUSE SYSTEM P-R Interval 128 ms MUSE SYSTEM QRS Duration 92 ms MUSE SYSTEM Q-T Interval 410 ms MUSE SYSTEM QTC Calculated 422 ms MUSE SYSTEM (Bezet) Calculated P [place] 33 degrees MUSE SYSTEM Calculated R [place] 55 degrees MUSE SYSTEM Calculated T [place] 49 degrees MUSE SYSTEM INTERPRETATION Normal sinus rhythm MUSE SYSTEM Normal ECG No previous ECGs available Confirmed by MD Chevy, Jaison ([id number]) on 03/06/2012 8:37:05 A M Specimen Anatomical Collection Method Collection Time Receive d Time (Source) Location / / Volume Laterality 03/05/2012 6:54 PM 2 8:37 EST AM EST Tin Kay MD ECG ORDERABLES Performing Organization Address City/State/ZIP Code Phon e Number MUSE SYSTEM documented in this encounter Visit Diagnoses Diagnosis Seizure Other convulsions documented in this encounter Administered Medications Inactive Administered Medications - up to 3 most recent administrations Medication Order MAR Action Action Date Dose Rate Site acetaminophen (TYLENOL) tablet Given 03/08/2012 12:33 AM EST 650 mg 650 mg 650 mg, Oral, EVERY 4 HOURS PRN, Starting on Sun03/05/12 at 1840, Until Sun03/11/12 at 1639, Pain, Maximum dose of acetaminophen is 4000 mg from all sources in 24 hours., Routine flu vaccine 2011 (36 mos+)(PF) Given 03/05/2012 10:00 PM EST 0.5 mLs Left Arm (FLUZONE) 45 mcg (15 mcg x 3)/0.5 mL IM injection 0.5 mL 0.5 mL, Intramuscular, PRIOR TO DISCHARGE, 1 dose, Starting on Sun03/05/12 at 1801, Until Sun03/05/12 at 2200, Per Protocol, Hold for fever greater than 38.9C, Routine ibuprofen (ADVIL;MOTRIN) tablet 600 mg Given 03/10/2012 4:50 PM EST 600 mg 600 mg, Oral, EVERY 6 HOURS PRN, Starting on Sun03/05/12 at 1840, Until Sun03/11/12 at 1639, Pain, Routine lamoTRIgine (LAMICTAL) tablet 25 mg Given 03/10/2012 4:51 PM EST 25 mg 25 mg, Oral, EVERY EVENING, First dose on 03/10/12 at 1700, Until Discontinued, Routine methocarbamol (ROBAXIN) tablet 750 mg Given 03/05/2012 9:00 PM EST 750 mg 750 mg, Oral, 3 TIMES DAILY, First dose on Sun03/05/12 at 2100, Until Discontinued, Routine pneumococcal (PNEUMOVAX-23 Given 03/05/2012 10:00 PM EST 0.5 mLs Right Arm (PPSV23)) vaccine inejction 0.5 mL 0.5 mL, Intramuscular, PRIOR TO DISCHARGE, 1 dose, Starting on Sun03/05/12 at 1802, Until Sun03/05/12 at 2200, Per Protocol, Hold for fever greater than 38.9C, Routine sodium chloride 0.9 % flush 5 mL Given 03/11/2012 9:00 AM EST 5 mLs 5 mL, Intravenous, EVERY 12 HOURS, First dose on Sun03/05/12 at 1900, Until Discontinued Given 03/10/2012 9:00 PM EST 5 mLs Given 03/10/2012 9:00 AM EST 5 mLs documented in this encounter Active and Recently Administered Medications Times are shown in EST. Scheduled Medication Order 03/09/2012 03/10/2012 03/11/2012 lamoTRIgine (LAMICTAL) tablet 25 mg (CANCELED) 1651 (Given - Provider: Sunitha Metcalf RN) 25 mg, Oral, EVERY EVENING, First dose o n 03/10/12 at 1700, Until Discontinued, Routine sodium chloride 0.9 % flush 5 mL (CANCELED) 0900 (Give n - Provider: Leah [place] RN)2010 (Given - Provider: Maria G Cesar RN) 0900 (Given - Provider: Sunitha Metcalf RN)2100 (Given - Provider: Yee Katz RN) 0900 (Given - Provider: Maria De Jesus Ni RN) 5 mL, Intravenous, EVERY 12 HOURS, First dose on Sun03/05/12 at 1900, Until Discontinued, Routine PRN Medication Order 03/09/2012 03/10/2012 03/11/2012 ibuprofen (ADVIL;MOTRIN) tablet 600 mg (CANCELED) 1650 (Given - Provider: Sunitha Metcalf RN) 600 mg, Oral, EVERY 6 HOURS PRN, Startin g Sun03/05/12 at 1840, Until 03/11/12 at 1639, Pain, Routine documented in this encounter Care Teams Car Oiler Relationship Specialty Start Date End Date None PCP - General 01/23/12 05/11/21 None documented as of this encounter
--- OUTSIDE RECORDS SUMMARY | 2021-10-28 15:07 | XMS_ITS | Encounter Summary ---
:1990 Author Organization [facility] [place] [address] Care Team Providers Name Role Phone None Primary Care Provider Unavailable Reason for Visit Reason Onset Date Comments Other 01/25/2012 Encounter Details Date Type Department Care Team Description 01/25/2012 Telephone Neurology at [facility] Shay Mckeon MD Other [facility] [place] [address] [facility] [phone] [place] [id number] (Wo rk) Social History Tobacco Use Types [...] Telephone Encounter - Shay Mckeon MD - 01/26/2012 2:03 PM EDT Pt was unaware of the dose of LTG she was taking when I saw her in the office this week, therefore Iwould be unable to write a proper Rx. Also, I would defer further Rx of this medication to the MD who Rx'd this in the first place until a Dx is made. Shay Mckeon III, MD Telephone Encounter - Renetta Jasmine Am - 01/25/2012 3:47 PM EDT Patient went to her pharmacy to pick remover her script for Lamictal, but was told her insurance requiresa prior authorization. She did not get the medication. She also states that she had a seizure yesterday and went to [facility] and wanted Dr. Mckeon to know this. documented in this encounter Plan of Treatment Not on filedocumented as of this encounter Visit Diagnoses Not on filedocumented in this encounter Care Teams Box Truck Driver Relationship Specialty Start Date End Date None PCP - General 01/23/12 05/11/21 None documented as of this encounter
--- OUTSIDE RECORDS SUMMARY | 2021-10-28 15:07 | XMS_ITS | Encounter Summary ---
:1990 Author Organization [facility] Address [address] [place] [address] Care Team Providers Name Role Phone Gallo Small NP Primary Care Provider Puneet Borrego RPA Primary Care Provider [phone] Encounter Details Date Type Department Care Team Description 06/08/2021 Lab Requisition [facility] Outr Resulting Lab, Pathology & Laboratory Provider [facility] [address] [place], [place] [address] Social History Tobacco Use Types Packs/Day Years [...] Name Priority Date/Time Associated Diagnosis Comme nts COVID-19 TEST [facility] Today 06/07/2021 9:55 EST LAB PCR COVID-19 TESTING Routine 06/07/2021 9:55 EST Resu lts for this procedure are i n the results section. documented in this encounter Results COVID-19 TEST [facility] LAB PCR (06/07/2021 9:55 EST) Specimen Swab Performing Organization Address City/State/ZIP Code Phon e Number [facility] [address] [place] [address] SERVICES COVID-19 TESTING (06/07/2021 9:55 EST) COVID-19 rt-PCR Negative Negative [facility] MED[facility] Result Comment: [facility] This test has not been FDA c leared or approved. This test has been authorized by FDA under an EUA for use by authorized laboratories. This test has been authorized only for detection of nucleic acid fro SERVICES m 2019-nCoV, not for any oth er viruses or pathogens. This test is only authorized for the duration of the declaration that circumstances exist justifying the authorization of emergency use of in vitro d iagnostic tests for detectio n and/or diagnosis of 2019-nCoV under section 564(b)(1) of Act, 21 U.S.C ?? 360bbb-3(b) (1), unless the authorization is terminated or revoked sooner. Negative results do not prec lude 2019-nCoV infection and should not be used as the sole basis for treatment or other patient management decisions. Negative results must be combined with clinical observa tions, patient history, and epidemiological informatio n. Testing was performed using the jennifer SARS-CoV-2 assay ([employer] on the Jennifer 6800 System Performing Lab Jennifer 6800 [facility] Lab [facility] SERVICES Specimen Swab Performing Organization Address City/State/ZIP Code Phon e Number [facility] [address] [place] [address] SERVICES documented in this encounter Visit Diagnoses Not on filedocumented in this encounter Care Teams Toilet Attendant Relationship Specialty Start Date End Date Gallo Small NP PCP - General Family Medicine - Primary 07/02/19 07/11/21 Care Puneet Borrego RPA PCP - General Family Medicine - Primary 07/12/[address] [place] [phone] documented as of this encounter
--- OUTSIDE RECORDS SUMMARY | 2021-10-28 15:07 | XMS_ITS | Encounter Summary ---
:1990 Author Organization [facility] [place] [address] Care Team Providers Name Role Phone None Primary Care Provider Unavailable Reason for Visit Reason Onset Date Comments Medication Refill 02/05/2014 Encounter Details Date Type Department Care Team Description 02/05/2014 Refill Neurology at [facility] [place] [place] Kunal Smalls MD [facility] vik [facility] [place] [address] NEUROLOGY DEPT. [phone] [place], [place] [address] (Wo rk) Social History Tobacco [...] place to sleep or slept in a correction (including now)? Sex Assigned at Date Recorded Not on file documented as of this encounter Miscellaneous Notes Telephone Encounter - Maria De Jesus Ramos RN - 02/05/2014 2:45 PM EDT Prescription refill request received. Last Appointment: 07/16/13 Next Scheduled Appointment: Due for appointment. Renetta states she has been out of the medication for two days, called pharmacy and refill needs authorization. Will forward to laboratory secretary to schedule appointment. documented in this encounter Plan of Treatment Not on filedocumented as of this encounter Visit Diagnoses Not on filedocumented in this encounter Care Teams Hand Booked Folder And Stitcher Relationship Specialty Start Date End Date None PCP - General 01/23/12 05/11/21 None documented as of this encounter
--- OUTSIDE RECORDS SUMMARY | 2021-10-28 15:07 | XMS_ITS | Encounter Summary ---
:1990 Author Organization [facility] [place] [address] Care Team Providers Name Role Phone None Primary Care Provider Unavailable Reason for Visit Reason Onset Date Comments Other 07/29/2013 Encounter Details Date Type Department Care Team Description 07/29/2013 Telephone Neurology at [facility] Yvonne Jewell, Other [facility] [place] [address] [facility] [phone] NEUROLOGY [place] [phone] (Wo rk) Social History Tobacco Use Types [...] this encounter Miscellaneous Notes Telephone Encounter - Carmenza Hogan - 07/29/2013 9:23 AM EDT Patient called in to report that she is waiting for PA for Lamictal XR. She would like to know if her normal Lamictal prescription can be sent to [facility] as she needs it to take until the XR is authorized. documented in this encounter Plan of Treatment Not on filedocumented as of this encounter Visit Diagnoses Not on filedocumented in this encounter Care Teams Cane Flume Watcher Relationship Specialty Start Date End Date None PCP - General 01/23/12 05/11/21 None documented as of this encounter
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
--- OUTSIDE RECORDS SUMMARY | 2021-10-28 15:07 | XMS_ITS | Encounter Summary ---
:1990 Author Organization [facility] [place] [address] Care Team Providers Name Role Phone None Primary Care Provider Unavailable Encounter Details Date Type Department Care Team Description 03/05/2012 Office Visit Neurology at [facility] [place] [address] Social History Tobacco Use Types Packs/Day Years Used Date Current Every Day Smoker Cigarettes 0.5 7 Hugo t: 01/22/2011 Smokeless Tobacco: Never Used Comments: less than or equal to 1/2 [...] on filedocumented in this encounter Care Teams Dental Hygienist Mobile Coordinator Relationship Specialty Start Date End Date None PCP - General 01/23/12 05/11/21 None documented as of this encounter
--- OUTSIDE RECORDS SUMMARY | 2021-10-28 15:07 | XMS_ITS | Encounter Summary ---
:1990 Author Organization [facility] Address [address] [place] [address] Care Team Providers Name Role Phone Gallo Small QUALITY PROCESS AUDITOR Primary Care Provider Puneet Borrego RPA Primary Care Provider [phone] Reason for Visit Reason Comments Other Encounter Details Date Type Department Care Team Description 08/17/2020 Refill [facility] Family Gallo Small, NIRANJAN Other Medicine - [address] [phone] (Wo rk) Social History Tobacco Use Types [...] Date End Date sertraline (ZOLOFT) 50 mg TAKE ONE TABLET BY 30 Tab 2 12/03/2020 tablet MOUTH EVERY DAY documented in this encounter Miscellaneous Notes Telephone Encounter - Duane Reddy RN - 08/18/2020 1220 EDT Medication(s) Requested: sertraline (ZOLOFT) 50 mg tablet Preferred Pharmacy: [id number] Is patient out of medication? Unknown Last Refill Date: 04/12/20 Last Visit Date with Ordering Provider: 04/20/2020 Next Non-Acute Visit Date Scheduled with Care Team: No. DUANE REDDY RN 08/18/2020 12:21 documented in this encounter Plan of Treatment Not on filedocumented as of this encounter Visit Diagnoses Not on filedocumented in this encounter Discontinued Medications Medication Sig Discontinue Reason Start Date End Date sertraline (ZOLOFT) 50 mg Take 1 Tab by mouth 04/12/19 21 08/18/2020 tablet daily. documented as of this encounter Care Teams Circulation Worker Relationship Specialty Start Date End Date Gallo Small NP PCP - General Family Medicine - Primary 07/02/19 07/11/21 Care Puneet Borrego, RPA PCP - General Family Medicine - Primary 07/12/[address] [place] [id number] documented as of this encounter
--- OUTSIDE RECORDS SUMMARY | 2021-10-28 15:07 | XMS_ITS | Encounter Summary ---
:1990 Author Organization [facility] [place] [address] Care Team Providers Name Role Phone None Primary Care Provider Unavailable Reason for Visit Reason Comments Medication Refill Encounter Details Date Type Department Care Team Description 02/05/2014 Refill Neurology at [facility] [place] [place] Yvonne Jewell MD [facility] vik [facility] [id number] NEUROLOGY [phone] [place], [place] [address] (Wo rk) Social History Tobacco [...] on filedocumented in this encounter Care Teams Galvanizing Pot Runner Relationship Specialty Start Date End Date None PCP - General 01/23/12 05/11/21 None documented as of this encounter
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
--- OUTSIDE RECORDS SUMMARY | 2021-10-28 15:07 | XMS_ITS | Clinical Summary ---
:1990 Author Organization [facility] [place] [address] Care Team Providers Name Role Phone Puneet Borrego Primary Care Provider Allergies Active Allergy Reactions Severity Noted Date Comments Hymenoptera Allergenic 08/26/2014 Child barker allergy; Extract patient not kourtney e if still allergic Sulfa (Sulfonamide Rash High 03/05/2012 (not sulf ur) Antibiotics) Ketorolac Shortness Of Breath High 07/21/2021 Coughing and shortness of br eath Medications Medication Sig Dispensed Refills Start Date End Date Status albuterol (PROVENTIL Inhale 1 puff 0 07/31/2014 Active HFA;VENTOLIN into the lungs HFA;PROAIR) 90 every 6 hours as mcg/actuation HFA needed. Aerosol Inhaler Symbicort 160-4.5 Inhale 1 puff 0 05/20/2021 Active mcg/actuation HFA into the lungs 2 Aerosol Inhaler times daily. hydrOXYzine (Atarax) 25 Take 25 mg by 0 07/02/2019 Active mg Tablet mouth Three times a day. Linzess 145 mcg Capsule Take 145 mcg by 0 07/09/2021 Active mouth daily. ondansetron ODT Take 4 mg by 0 07/28/2019 Active (Zofran-ODT) 4 mg mouth Every 8 Tablet, Rapid Dissolve hours as needed. pantoprazole EC Take 20 mg by 0 06/23/2021 Active (Protonix) 20 mg mouth daily. Tablet, Delayed Release (E.C.) SUMAtriptan (Imitrex) Take 25 mg by 0 05/20/2021 Active 25 mg Tablet mouth daily as needed for Migraine. valACYclovir (VALTREX) Take 1,000 mg by 0 06/23/2021 Active 1 gram Tablet mouth daily. sertraline (Zoloft) 25 Take 25 mg by 0 Active mg Tablet mouth daily. topiramate (TOPAMAX) 50 Take 1 tablet by 30 tablet 3 2 Active mg Tablet mouth nightly. Active Problems No known active problems Immunizations Name Administration Dates Next Due Influenza Vaccine w/Preservative, Split 03/05/2012 Pneumococcal Polyvalent 23 03/05/2012 Social History Tobacco Use Types Packs/Day Years Used Date Former Smoker Cigarettes 0.25 7 Quit: 05/29/19 15 Smokeless Tobacco: Never Used Tobacco Cessation: Ready to Quit: No Alcohol Use Standard Drinks/Week Comments Yes 0 [...] place to sleep or slept in a prison (including now)? Sex Assigned at Date Recorded Not on file Last Filed Vital Signs Vital Sign Reading Time Taken Comments Blood Pressure 107/76 07/21/2021 9:30 AM EDT Pulse 82 07/21/2021 9:30 AM EDT Temperature 36.9 ??C (98.4 ??F) 03/11/2012 7:34 AM EST Respiratory Rate 16 03/11/2012 7:34 AM EST Oxygen Saturation 100% 03/11/2012 7:34 AM EST Inhaled Oxygen Concentration - - Weight 89.8 kg (198 lb) 07/21/2021 9:30 AM EDT Height 165.1 cm (5' 5) 07/21/2021 9:30 AM EDT Body Mass Index 32.95 07/21/2021 9:30 AM EDT Plan of Treatment Health Maintenance Due Date Last Done Comments Covid-19 Vaccine (#1) 01/09/1996 HIV screen 2009 Hepatitis C Screening 2009 Lipid Screening 2009 Tdap adult 2010 Tetanus vaccine 2010 HPV test 2021 PAP Smear 2021 Influenza (Flu) vaccine (1 of 1 - Influenza standard 12/08/2021 03/05/2012 series) Insurance Payer Benefit Plan / Subscriber ID Effective Phone Address T ype Group Dates [employer] [id number] 2020-Prese [address] [facility] [place] [address] [place] [id number] 2021-Prese [phone] [address] [place] [id number] ([address]) [address] [facility] , ([place]) [place] [address] Advance Directives Latest Code Status on File Code Status Date Activated Date Inactivated Comments Full Code 03/05/2012 6:40 PM 03/11/2012 4:39 PM Order Status: Initial Order Does patient have decision making capacity? Yes, Order is based on Patients wishes. Care Teams Sld Educational Aide Relationship Specialty Start Date End Date Puneet Borrego PA PCP - General Internal Medicine 05/12/21 [address] [place] [address]
--- OUTSIDE RECORDS SUMMARY | 2021-10-28 15:07 | XMS_ITS | Encounter Summary ---
:1990 Author Organization [facility] [place] [address] Care Team Providers Name Role Phone Puneet Borrego Primary Care Provider Reason for Referral Diagnostic Test (Routine) - New Request Specialty Diagnoses / Procedures Referred By Contact Refer red To Contact Radiology Diagnoses Intractable migraine without aura and without status migrainosus Dee Simon APRN [facility] Rad Mri Procedures MRI Brain wo Contrast [facility] [place] [address] [place] [address] Referral ID Status Reason Start Expiration Visits Visits Date Date Requested Authorized [id number] New Request Specialty 07/21/2021 01/20/2023 1 1 Service Requested Consultation (Routine) - Closed Specialty Diagnoses / Procedures Referred By Contact Refer red To Contact Neurology Diagnoses Intractable migraine without aura and without status migrainosus Dee Simon APRN [facility] D R [address] [place] [address] [place] [address] Referral ID Status Reason Start Date Expiration Date Visits V isits Requested Authorized [id number] Closed Consult, 07/21/2021 07/21/2022 1 1 Test & Treat Reason for Visit Consultation (Routine) - Closed Specialty Diagnoses / Procedures Referred By Contact Refer red To Contact Neurology Diagnoses Migraine, unspecified, not intractable, without status migrainosus Epilepsy, unspecified, not intractable, without status epilepticus MIGRAINES AND EPILEPSY Ralph Wiggins MD [facility] [address] [place] [phone] Referral ID Status Reason Start Date Expiration Date Visits V isits Requested Authorized [id number] Closed Consult, Test 05/09/2021 11/06/2021 6 6 & Treat [facility] Center PCP Updated and/or Approved Encounter Details Date Type Department Care Team Description 07/21/2021 Office Visit Neurology at [facility] eDe Simon, Intractable migraine [facility] BAND DIRECTOR without aura and Drive [facility] without status [place], [place] [address] [address] NEUROLOGY [phone] [place], [place] [address] Social History Tobacco Use Types [...] Pulse 82 07/21/2021 9:30 AM EDT Temperature - - Respiratory Rate - - Oxygen Saturation - - Inhaled Oxygen Concentration - - Weight 89.8 kg (198 lb) 07/21/2021 9:30 AM EDT Height 165.1 cm (5' 5) 07/21/2021 9:30 AM EDT Body Mass Index 32.95 07/21/2021 9:30 AM EDT documented in this encounter Patient Instructions Patient InstructionsDee Simon APRN - 07/21/2021 10:47 AM EDT MRI brain ordered due to change in migraine frequency and pain origination. 2. This is likely progression of episodic headache where you need a preventative medication to try to reduce frequency and severity of pain. Progression can also make abortive medications, such as sumatriptan, be less effective. 3. Increase topiramate to 50 mg each night. You can finish your current prescription by taking 2 tablets; when new prescription picked up, you only need 1 tablet. 4. Referral placed to headache clinic. documented in this encounter Progress Notes Dee Simon APRN - 07/21/2021 9:30 AM EDT Neurology [facility] New patient consultation Renetta Bradley is a 31 y.o. female here for evaluation of cognitive changes. She is seen in consultation at the request of Dr. Wiggins She's had headaches and migraines since teens but frequency and pain origination is changing. Beforehand, she would experience a migraine, maybe a couple times per month. Now she's getting migraines about once per week and headaches are frequent. Headache pain is to her bilateral holiness region. Migraine pain previously felt to her left, retro-orbital region. She has sumatriptan for abortive medication, which used to relieve pain w/in 5-10 minutes but no longer beneficial. Sumatriptan also causes excessive fatigue. Pain associated with photo/phonophobia, osmophobia, nausea. She's aware smells trigger migraines. When in pain, she wants to lie down and sleep for about 1-2 hours. In the past, lying down would relieve pain some-severity reduced to mild. Currently, she is going to bed and waking with same severity pain. Pain associated with jumbled speech and impaired cognition. Pain not associated with focal neurologic abnormalities or visual aura. Onset gradually worsens. Denies positional headach e. Duration of pain can persist for a couple days. She recently went to ER due to change in pain: headache originated from right holiness region resulting in entire head pain and face pain. Migraine cocktail provided (toradol, reglan, benadryl) without relief; toradol caused shortness of breath and uncontrollable coughing. Another medication provided without relief (phenergan). After ER visit, Dr. Wiggins started topamax 25 mg with migraine severity reducing but no improvement noted in frequency of migraine pain. Denies side effects to topamax. Beyond smells, she has not been able to identify other migraine triggers. Her mom was aware of tomatoes triggering her headaches; she notes migraines intermittently provoked by tomatoes for herself. Treated by epilepsy team in past with lamictal; last seizure 5-6years ago. No longer taking lamictal. control did result in increased headaches. Uses condoms with intercourse. No history of nephrolithiasis Social History: No history of tobacco use. Social alcohol use; no h/o illicit drugs. Family History: Mom with history of migraines (aware of tomato being a trigger) There is no problem list on file for this patient. Allergies Allergen Reactions ??? Sulfa (Sulfonamide Antibiotics) Rash (not sulfur) ??? Toradol [Ketorolac] Shortness Of Breath Coughing and shortness of breath ??? Bee Sting [Hymenoptera Allergenic Extract] Childhood allergy; patient not sure if still allergic Current Outpatient Medications on File Prior to Visit Medication Sig Dispense Refill ??? Symbicort 160-4.5 mcg/actuation HFA Aerosol Inhaler Inhale 1 puff into the lungs 2 times daily. ??? hydrOXYzine (Atarax) 25 mg Tablet Take 25 mg by mouth Three times a day. ??? Linzess 145 mcg Capsule Take 145 mcg by mouth daily. ??? ondansetron ODT (Zofran-ODT) 4 mg Tablet, Rapid Dissolve Take 4 mg by mouth Every 8 hours as needed. ??? pantoprazole EC (Protonix) 20 mg Tablet, Delayed Release (E.C.) Take 20 mg by mouth daily. ??? SUMAtriptan (Imitrex) 25 mg Tablet Take 25 mg by mouth daily as needed for Migraine. ??? topiramate (Topamax) 25 mg Tablet Take 25 mg by mouth daily. ??? valACYclovir (VALTREX) 1 gram Tablet Take 1,000 mg by mouth daily. ??? sertraline (Zoloft) 25 mg Tablet Take 25 mg by mouth daily. ??? albuterol (PROVENTIL HFA;VENTOLIN HFA;PROAIR) 90 mcg/actuation HFA Aerosol Inhaler Inhale 1 puffinto the lungs every 6 hours as needed. ??? [DISCONTINUED] FLUoxetine (PROZAC) 20 mg Capsule Take 1 capsule by mouth daily. Reported on 07/18/2016 ??? [DISCONTINUED] levonorgestrel (MIRENA) 20 mcg/24 hr (5 years) IUD 1 each by Intrauterine route once. Reported on 07/18/2016 ??? [DISCONTINUED] lamoTRIgine (LAMICTAL) 25 mg Tablet Take 2 tablets by mouth 2 times daily. (Patient not taking: No sig reported) 120 tablet 12 No current facility-administered medications on file prior to visit. Social and family history are detailed in the HPI Review of Symptoms: A 12 point review of systems was performed and was negative except for that mentioned in the HPI. Patient Vitals for the past 24 hrs: Pulse BP 07/21/21 0930 82 107/76 Physical and neurological examination: General: NAD, well nourished Skin: No rashes or scars noted Cardiovascular: 2+ bilateral radial pulses Lungs: equal, symmetrical chest rise without increased work of breathing Psychiatry: Mood and affect are appropriate. Speech is fluent and appropriate, comprehension fully intact. Cranial nerves: Visual snowden are intact, extra-ocular movements intact, pupils equal and reactive to light, face and smile are symmetric, facial sensation is intact/symmetric, hearing intact to light finger rub, tongue protrudes midline, palate elevates fully, no dysarthria. Coordination and gait: gait is normal and steady, finger to nose intact. Normal fine motor movements. Sensory: Sensory exam intact to light touch throughout Musculoskeletal: Normal power throughout all muscle groups. Normal tone and normal range of motion. Reflexes: DTRs are symmetric and trace throughout. Assessment and plan: Renetta Bradley is a 31 y.o. female here for evaluation of change in regular headache and migraine pattern. She notes increased frequency, severity, and location of pain. She denies any focal neurological abnormalities or visual auras. We discussed primary versus secondary headache. While her neurological exam was without any focal neurologic deficits, she should obtain MRI brain given the change in her regular headache pattern and frequency. We discussed progression of episodic headache/migraine to chronic headache/migraine. It is possible her previous reduced frequency of headaches was due to prior lamictal therapy as this can be utilizedfor headache prophylaxis. Since she is having increased frequency of headaches and migraines as wellas reduced benefit from abortive medications, she warrants headache prophylaxis. She has not had anyside effects to topamax and is noting mild improvement in severity of pain. She should increase to topamax 50 mg po qhs. I discussed referral to headache specialist so other treatments could be consider ed as needed. 40 minutes were spent in chart preparation and face to face with the patient; at least 25 minutes spent on direct education and supportive counseling, education on memory loss, the diagnosis and management, and coordination of care. documented in this encounter Plan of Treatment Scheduled Orders Name Type Priority Associated Diagnoses Order S chedule MRI Brain wo Contrast Imaging Routine Intractable migrain e Expected: 07/21/2021, without aura and without Exp ires: 07/21/2022 status migrainosus Scheduled Referrals Name Type Priority Associated Diagnoses Order S chedule Referral to Outpatient Referral Routine Intractable migraine Ordered: Neurology without aura and 07/21/2021 without status migrainosus documented as of this encounter Visit Diagnoses Diagnosis Intractable migraine without aura and wi thout status migrainosus Migraine without aura, with intractable migraine, so stated, without mention of status migrainosus documented in this encounter Care Teams Continuous Wave Operator Relationship Specialty Start Date End Date Puneet Borrego PA PCP - General Internal Medicine 05/12/21 [address] [place] [address] documented as of this encounter
--- OUTSIDE RECORDS SUMMARY | 2021-10-28 15:07 | XMS_ITS | Encounter Summary ---
:1990 Author Organization [facility] Address [address] [place] [address] Care Team Providers Name Role Phone Gallo Small SHELLFISH SHUCKER Primary Care Provider Reason for Visit Reason Comments Anxiety Medication Management Would like to discuss medica tion Encounter Details Date Type Department Care Team Description 04/20/[address] [facility] Gallo Small, Rash and nonspecific skin eruption (Primary Dx); Family Medicine - SHELLFISH SHUCKER Herpes simplex type 2 infection; [address] Mild intermittent reactive airway diseas e without complication; 3 [facility], Other irritable bowel syndro me So [facility] [id number] [phone] Social History Tobacco Use Types Packs/Day Years [...] Sig Dispensed Refills Start Date End Date dicyclomine (BENTYL) 20 Take 1 Tab by mouth 3 30 Tab 1 0 04/20/2020 mg tabletIndications: times daily as needed Other irritable bowel for Other (abdominal syndrome cramping). albuterol 90 Inhale 1 Puff as 1 Inhaler 2 04/20/2020 mcg/actuation directed every 4 hours inhalerIndications: as needed for Mild intermittent Wheezing. reactive airway disease without complication acyclovir (ZOVIRAX) 400 Take 1 Tab by mouth 3 63 Tab 2 0 04/20/2020 04/27/2020 mg tabletIndications: times daily for 7 Herpes simplex type 2 days. Take this higher infection dose during outbreaks, then resume lower suppressive dose. acyclovir (ZOVIRAX) 400 Take 1 Tab by mouth 2 60 Tab 3 0 04/20/2020 04/20/2020 mg tablet times daily. This is suppressive therapy. documented in this encounter Progress Notes Gallo Small APRN - 04/20/2020 1415 EST Family Medicine Video Visit Assessment & Plan Diagnoses and all orders for this visit: Rash and nonspecific skin eruption - AMB CONS/FOLLOW UP DERMATOLOGY Herpes simplex type 2 infection - acyclovir (ZOVIRAX) 400 mg tablet Mild intermittent reactive airway disease without complication - albuterol 90 mcg/actuation inhaler Other irritable bowel syndrome - dicyclomine (BENTYL) 20 mg tablet medications refilled: Discussed suppressive therapy and hsv treatment OK to use albuterol, however worsening wheeze or increasing SOB would warrant further evaluation. Bentyl sent: Discussed dosing and recommended use. Also sent derm referral. Offered topical treatment, but she'd like to establish with derm for ongoing evaluation/monitoring. Return in about 3 months (around 07/19/2020) for reevaluation of asthma, mood, rash, video OK. Patient education was direct. Barriers were assessed and addressed as needed. Subjective Renetta Bradley is a 30 y.o. female presenting with Anxiety and Medication Management (Would like to discuss medication ) She moved back to [facility], but wants to continue to get care in [place]. She has several concerns today: Wants acyclovir at higher dose (400mg BID) for use during outbreaks. Wants albuterol for before exercise (has had some chest tightness and wheeze). She used bentyl in the past and would like to resume this. Gets rashes periodically: Worse with exercise. Has tried many creams and antihistamines. Would like to see derm and asking for referral. Data reviewed this visit: problem list/past medical history, current medications, allergies, last visit note, recent imaging and recent specialist documentation Review of Systems Constitutional: Negative for activity change and fatigue. Respiratory: Positive for wheezing (occ, with exercise). Cardiovascular: Negative for chest pain. Gastrointestinal: Positive for abdominal distention and abdominal pain (cramping, intermittent--IBS). Neurological: Negative for dizziness, syncope, light-headedness and headaches. Psychiatric/Behavioral: Negative for decreased concentration, dysphoric mood and sleep disturbance. The patient is not nervous/anxious. - See [facility] TELEMEDICINE VIDEO VISIT Today's visit was provided through telemedicine video conferencing: The location of the patient : Home The location of the provider: Office The following staff and their role did participate in today's encounter visit: Gallo Small APRN Objective There were no vitals taken for this visit. Physical Exam Vitals signs and nursing note reviewed. Constitutional: General: She is not in acute distress. Appearance: She is well-developed and well-nourished. HENT: Head: Normocephalic and atraumatic. Eyes: Conjunctiva/sclera: Conjunctivae normal. Neck: Musculoskeletal: Normal range of motion. Pulmonary: Effort: Pulmonary effort is normal. Musculoskeletal: Normal range of motion. Neurological: Mental Status: She is alert and oriented to person, place, and time. Psychiatric: Mood and Affect: Mood and affect normal. Behavior: Behavior normal. Leela Delgado LPN - 04/20/2020 1415 EST The concept of ???Telemedicine?? has been described to the patient.? Patient has been informed of the anticipated benefits and possible risks.? Patient understands the information provided regarding telemedicine, has had the opportunity to ask questions about this information, and all questions have been answered to patient???s satisfaction. Patient consents for the use of telemedicine in his/her medical care and authorizes the transmission of any relevant medical information to providers and theirstaff involved in patient???s medical or mental health care. documented in this encounter Plan of Treatment Not on filedocumented as of this encounter Visit Diagnoses Diagnosis Rash and nonspecific skin eruption - Sonal lisset Rash and other nonspecific skin eruption Herpes simplex type 2 infection Herpes simplex without mention of compli cation Mild intermittent reactive airway diseas e without complication Other irritable bowel syndrome documented in this encounter Discontinued Medications Medication Sig Discontinue Reason Start Date End Date acyclovir (ZOVIRAX) Take 1 Tab by mouth 2 Reorder 03/31/2020 04/20/2020 400 mg tablet times daily. This is suppressive therapy. acyclovir (ZOVIRAX) Take 1 Tab by mouth 2 Reorder 04/20/2020 04/20/2020 400 mg tablet times daily. This is suppressive therapy. documented as of this encounter Care Teams Block Sawyer Relationship Specialty Start Date End Date Gallo Small NP PCP - General Family Medicine - Primary 07/02/19 07/11/21 Care documented as of this encounter
--- OUTSIDE RECORDS SUMMARY | 2021-10-28 15:07 | XMS_ITS | Encounter Summary ---
:1990 Author Organization [facility] [place] [address] Care Team Providers Name Role Phone None Primary Care Provider Unavailable Encounter Details Date Type Department Care Team Description 01/23/2012 Office Visit Neurology [place] [facility] Shay Mckeon, Transient alteration [facility] [place] [address] SLEEP DISORDERS [phone] [place], [place] [address] (Wo rk) Social History Tobacco [...] Visit Diagnoses Diagnosis Transient alteration of awareness documented in this encounter Care Teams Director Camp Relationship Specialty Start Date End Date None PCP - General 01/23/12 05/11/21 None documented as of this encounter
--- OUTSIDE RECORDS SUMMARY | 2021-10-28 15:07 | XMS_ITS | Encounter Summary ---
:1990 Author Organization [facility] [place] [address] Care Team Providers Name Role Phone None Primary Care Provider Unavailable Reason for Visit Reason Onset Date Comments Prior Authorization 02/06/2014 LAMOTRIGINE XR APPRO [facility] 02/12/14-04/08/39 Encounter Details Date Type Department Care Team Description 02/06/2014 Telephone Neurology [place] [facility] Kunal Smalls, Prior Authorization [facility] (LAMOTRIGINE XR APPROVED [facility] 02/12/14-04/08/39) [place] [address] NEUROLOGY DEPT. [place], [place] [address] Social History Tobacco Use Types [...] Notes Telephone Encounter - Claudia Trotter - 02/16/2014 9:21 AM EST LAMOTRIGINE XR #30 APPROVED 02/12/14-04/08/39 Telephone Encounter - Claudia Trotter - 02/12/2014 1:03 PM EST RENEWAL PA FOR LAMOTRIGINE XR FAXED TO [place] [employer]. Telephone Encounter - Jie Andersen LPN - 02/06/2014 8:02 AM EDT Reason for call: Rafal, pharmacist form [facility] calls to inform our office that the pt has secondary insurance which requires a PA for Lamotrigine XR as the co pay is over $50 for the pt. Pharmacist knows the pt cannot afford this. Please contact pharmacy at [phone]. This is an urgent request of PA as pt just called for new script as she had been out of medication for 2 days. Plan: Forwarding message to Claudia Trotter asking her to do the prior authorization. documented in this encounter Plan of Treatment Not on filedocumented as of this encounter Visit Diagnoses Not on filedocumented in this encounter Care Teams Agency Recruiter Relationship Specialty Start Date End Date None PCP - General 01/23/12 05/11/21 None documented as of this encounter
--- OUTSIDE RECORDS SUMMARY | 2021-10-28 15:07 | XMS_ITS | Encounter Summary ---
:1990 Author Organization [facility] [place] [address] Care Team Providers Name Role Phone None Primary Care Provider Unavailable Reason for Visit Reason Onset Date Comments Medication Problem 01/01/2013 Encounter Details Date Type Department Care Team Description 01/01/2013 Refill Neurology at [facility] Quinn Gutiérrez MD [facility] [place] [address] NEUROLOGY DEPT. [phone] [place], [place] [address] (Wo rk) Social History Tobacco [...] place to sleep or slept in a fdc (including now)? Sex Assigned at Date Recorded Not on file documented as of this encounter Miscellaneous Notes Telephone Encounter - Char Carbone LPN - 01/01/2013 3:18 PM EDT Do not take any more tonight and then resume as usual tomorrow per Dr. Gutiérrez. Patient agreed. Telephone Encounter - Char Carbone LPN - 01/01/2013 2:46 PM EDT Patient report she accidentally took her HS Lamictal 50 mg now. Her usual dose is 50 Mg BID. She took her morning dose at 10 am. Message sent to Dr. Gutiérrez for advice. documented in this encounter Plan of Treatment Not on filedocumented as of this encounter Visit Diagnoses Not on filedocumented in this encounter Care Teams Help Desk Internship Relationship Specialty Start Date End Date None PCP - General 01/23/12 05/11/21 None documented as of this encounter
--- OUTSIDE RECORDS SUMMARY | 2021-10-28 15:07 | XMS_ITS | Encounter Summary ---
:1990 Author Organization [facility] Address [address] [place] [address] Care Team Providers Name Role Phone Puneet Borrego RPA Primary Care Provider [phone] Reason for Visit Reason Onset Date Comments Medications Refill 10/25/2021 Encounter Details Date Type Department Care Team Description 10/25/2021 Refill [facility] Gallo Oliver NP Medications Refill [address] [address] [place] [address] [phone] Social History Tobacco Use Types Packs/Day Years [...] this encounter Miscellaneous Notes Telephone Encounter - Juliet Cameron RN - 10/26/2021 0833 EDT Requested Prescriptions Refused Prescriptions Disp Refills ??? pantoprazole (PROTONIX) 20 mg tablet [Pharmacy Med Name: PANTOPRAZOLE SOD DR 20 MG TAB] 90 Tablet 3 Sig: TAKE ONE TABLET BY MOUTH EVERY DAY Refused By: JULIET CAMERON Reason for Refusal: Patient no longer under Prescriber care JULIET CAMERON RN 10/26/2021 8:34 documented in this encounter Plan of Treatment Not on filedocumented as of this encounter Visit Diagnoses Not on filedocumented in this encounter Care Teams Drag Car Racer Relationship Specialty Start Date End Date Puneet Borrego RPA PCP - General Family Medicine - Primary 07/12/[address] [place] [id number] documented as of this encounter
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
--- OUTSIDE RECORDS SUMMARY | 2021-10-28 15:07 | XMS_ITS | Encounter Summary ---
:1990 Author Organization [facility] [place] [address] Care Team Providers Name Role Phone None Primary Care Provider Unavailable Reason for Visit Reason Onset Date Comments Other 10/20/2013 Encounter Details Date Type Department Care Team Description 10/20/2013 Telephone Neurology at [facility] [place] Dexter Esquivel MD Other [facility] Carmen chery [facility] [place] [address] NEUROLOGY DEPT [phone] [place], [place] [address] (Wo rk) Social History Tobacco [...] Notes Telephone Encounter - Dexter Esquivel - 10/20/2013 4:52 PM EDT Called and left voice mail on cell and home. Telephone Encounter - Janneth Eden - 10/20/2013 2:03 PM EDT Renetta called stating that she had 2 seizures on 10/12/2013 about 12 hours apart. This is unusual for her, she has experienced nocturnal seizures and this time she had one while she was awake. She states that usually she only has one seizure every 3 to 4 months. Her memory of the day is very vague, remembers little about the day. Extremely tired and nauseous for the entire week. She states that her recovery doesn't usually last that long, she missed work and school. States that she was really on edge. Renetta was a patient of Dr. Mello. Please call and advise. documented in this encounter Plan of Treatment Not on filedocumented as of this encounter Visit Diagnoses Not on filedocumented in this encounter Care Teams Cold Food Packer Relationship Specialty Start Date End Date None PCP - General 01/23/12 05/11/21 None documented as of this encounter
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
--- OUTSIDE RECORDS SUMMARY | 2021-10-28 15:07 | XMS_ITS | Encounter Summary ---
:1990 Author Organization [facility] Address [address] [place] [address] Care Team Providers Name Role Phone Gallo Small DARK ROOM ATTENDANT Primary Care Provider Puneet Borrego RPA Primary Care Provider [phone] Reason for Visit Reason Comments Other Encounter Details Date Type Department Care Team Description 07/29/2020 Refill [facility] Family Gallo Small, DARK ROOM ATTENDANT Other Medicine - [address] [phone] (Wo rk) Social History Tobacco Use Types [...] Sig Dispensed Refills Start Date End Date pantoprazole (PROTONIX) 20 TAKE ONE TABLET BY 90 Tab 3 0 07/30/2020 mg tablet MOUTH EVERY DAY documented in this encounter Miscellaneous Notes Telephone Encounter - Duane Reddy RN - 07/30/2020 0800 EDT Medication(s) Requested: pantoprazole (PROTONIX) 20 mg tablet Preferred Pharmacy: [phone] Is patient out of medication? Unknown Last Refill Date: 03/23/20 Last Visit Date with Ordering Provider: 04/20/20 Next Non-Acute Visit Date Scheduled with Care Team: No. DUANE REDDY RN 07/30/2020 8:01 documented in this encounter Plan of Treatment Not on filedocumented as of this encounter Visit Diagnoses Not on filedocumented in this encounter Discontinued Medications Medication Sig Discontinue Reason Start Date End Date pantoprazole (PROTONIX) 20 Take 1 Tab by 03/23/2020 07/30/2020 mg tablet mouth daily. documented as of this encounter Care Teams Mobile Ui/Ux Designer Relationship Specialty Start Date End Date Gallo Small NP PCP - General Family Medicine - Primary 07/02/19 07/11/21 Care Puneet Borrego, SANDY PCP - General Family Medicine - Primary 07/12/[address] [place] [phone] documented as of this encounter
--- OUTSIDE RECORDS SUMMARY | 2021-10-28 15:07 | XMS_ITS | Encounter Summary ---
:1990 Author Organization [facility] Address [address] [place] [address] Care Team Providers Name Role Phone Gallo Small FRYLINE ATTENDANT Primary Care Provider Reason for Visit Reason Onset Date Comments Medications Refill 12/03/2020 Encounter Details Date Type Department Care Team Description 12/03/2020 Refill [facility] Family Gallo Small, FRYLINE ATTENDANT Medications Refill [address] [address] [place] [address] [phone] Social History Tobacco Use Types Packs/Day Years [...] Date sertraline (ZOLOFT) 50 mg Take 1 Tablet by 90 Tablet 1 11/08 tablet mouth daily. documented in this encounter Miscellaneous Notes Telephone Encounter - Juliet Cameron RN - 12/03/2020 1842 EDT Requested Prescriptions Signed Prescriptions Disp Refills ??? sertraline (ZOLOFT) 50 mg tablet 90 Tablet 1 Sig: Take 1 Tablet by mouth daily. Authorizing Provider: GALLO SMALL Ordering User: JULIET CAMERON RN 12/03/2020 18:45 documented in this encounter Plan of Treatment Not on filedocumented as of this encounter Visit Diagnoses Not on filedocumented in this encounter Discontinued Medications Medication Sig Discontinue Reason Start Date End Date sertraline (ZOLOFT) 50 TAKE ONE TABLET BY 08/18/2020 12/03/2020 mg tablet MOUTH EVERY DAY documented as of this encounter Care Teams Igniter Capper Relationship Specialty Start Date End Date Gallo Small, FRYLINE ATTENDANT PCP - General Family Medicine - Primary 07/02/19 07/11/21 Care documented as of this encounter
--- OUTSIDE RECORDS SUMMARY | 2021-10-28 15:08 | XMS_ITS | Encounter Summary ---
:1990 Author Organization [facility] Address [address] [place] [address] Care Team Providers Name Role Phone Michelle Singer NP Primary Care Provider Encounter Details Date Type Department Care Team Description 06/24/2019 Travel Social History Tobacco Use Types Packs/Day Years Used Date Current Every Day Smoker Cigarettes 0.25 13 Hugo t: 05/10/2015 Smokeless Tobacco: Never Used Alcohol Use Standard [...] at Date Recorded Female 02/20/2019 13:04 EST COVID-19 Exposure Response Date Recorded In the last month, have you been in contact with No / Unsure 06/24/2019 15:55 EDT someone who was confirmed or suspected to have Coronavirus / COVID-19? documented as of this encounter Functional Status Functional Status Response Date of Assessment Because of a physical, mental, or emotional condition, No 10/16/2017 does this person have difficulty doing errands alone such as visiting a doctor's office or shopping? Cognitive Status Response Date of Assessment Because of a physical, mental, or emotional condition, No 10/16/2017 does this person have serious difficulty concentrating, remembering, or making decisions? documented as of this encounter Plan of Treatment Not on filedocumented as of this encounter Visit Diagnoses Not on filedocumented in this encounter Care Teams Bi Analyst Relationship Specialty Start Date End Date Michelle Singer, CUTTER OPERATOR HELPER PCP - General 12/03/18 07/01/19 documented as of this encounter
--- OUTSIDE RECORDS SUMMARY | 2021-10-28 15:08 | XMS_ITS | Encounter Summary ---
:1990 Author Organization [facility] Address [address] [place] [address] Care Team Providers Name Role Phone Michelle Singer FASHION CONSULTANT Primary Care Provider Reason for Visit Reason Onset Date Comments Headache 04/12/2019 Encounter Details Date Type Department Care Team Description 04/12/2019 Telephone [facility] Primary Michelle Nazario, FASHION CONSULTANT Headache Care Weekend Clinic - [address] [place], [place] [address] [address] [phone] Social History Tobacco Use Types Packs/Day Years [...] making decisions? documented as of this encounter Miscellaneous Notes Telephone Encounter - Elyssa Martinez RN - 04/12/2019 1130 EST Last night had a migraine on left side, behind left eye. Woke this morning, now feeling in right side/behind right eye. Also feeling intense pain at base of skull. Excruciating - also radiating from neck to behind right eye. Light sensitivity, nausea. Had migraines for years. Taking alternating ibuprofen and Excedrin, cold washcloths, dark room, just getting worse and worse. No sickness recently. Got flu shot a week ago. Advised to be assessed at today. Patient verbalized understanding and agrees with plan. No barriers to learning identified. elephone Encounter - Sophy Glass - 04/12/2019 1028 EST Reason for Call: Headache Summary/Symptoms: base of neck, tried everything, would like to discuss Right and left side of head Onset and Duration? 2 dyas Appointment Offered? Sophy Glass 04/12/2019 10:29 documented in this encounter Plan of Treatment Not on filedocumented as of this encounter Visit Diagnoses Not on filedocumented in this encounter Care Teams Business Proposal Rep Relationship Specialty Start Date End Date Michelle Singer, NIRANJAN PCP - General 12/03/18 07/01/19 documented as of this encounter
--- OUTSIDE RECORDS SUMMARY | 2021-10-28 15:08 | XMS_ITS | Encounter Summary ---
:1990 Author Organization [facility] Address [address] [place] [address] Care Team Providers Name Role Phone Kristen Fontaine MD Primary Care Provider Reason for Visit Reason Onset Date Comments Urticaria 03/28/2018 Encounter Details Date Type Department Care Team Description 03/28/2018 Telephone [facility] Kristen Toledo MD Urticaria Medicine [address] [phone] (Wo rk) Social History Tobacco Use Types Packs/Day Years Used Date Former Smoker Cigarettes 0.25 13 Quit: 05/10/19 16 Smokeless Tobacco: Never Used Alcohol Use Standard Drinks/Week Comments Yes 0 (1 standard drink = 0.6 oz pure alcoho l) occasion Alcohol Habits Answer Date Recorded How often do you have a drink containing alcohol? Not asked How many drinks containing alcohol do you have on a typical Not asked day when you are drinking? How often do you have six or more drinks on one occasion? No t asked Comment: occasion 10/14/2014 Food Insecurity Answer Date Recorded Within the [...] this encounter Miscellaneous Notes Telephone Encounter - Kitty Diez RN - 03/28/2018 1621 EST Spoke to patient, confirmed she is not taking any new medications. Advised of below message from Dr Camp. She does not take the hydroxyzine. Patient will monitor for signs or symptoms of angioedema (advised of what to watch for) and will seek emergent evaluation if she experiences this. Patient expressed understanding with no barriers to learning. elephone Encounter - Meredith Camp MD - 03/28/2018 1606 EST I am also assuming that she is on no new medications and has no recent illness. Hives can last for several days. They often come and go. She can use Benadryl for comfort but doesn't have to use it. Hives are not dangerous, just itchy. We need to know if she develops any sx/sx of angioedema. Additionally, I see that she sometimes uses atarax (on her med list). I would recommend that she uses benadryl OR atarax but not both. Meredith Camp M.D. [facility] [phone] elephone Encounter - Helga Hagen RN - 03/28/2018 1521 EST Patient reports Hives started last night (03/27) around 7:30 pm, located mostly on torso. Took benadryl around 8 pm, took another dose at 8 am at work, then took a third dose today at 1 pm. Feels like hives on torso may have improved but now seeing some on her neck. They are itchy, saeed butter lotion is helping. No known allergies, no new soaps/lotions/laundry detergents. Did use a new cleaning sprayyesterday afternoon. Patient inquiring how long she should wait until she is seen if they continue. No recent fevers/viruses. Helga Hagen RN 03/28/2018 15:25 elephone Encounter - Katiana Tucker - 03/28/2018 1501 EST Reason for Call: Urticaria Summary/Symptoms: Patient states she broke out in hives about 7:30 pm on 03/27/18. She took Benadrylon 03/27/18 at 8:00 pm, again at 8:00am this morning and about every 5 hours since them and she still have hives. Please call and advise. Onset and Duration? Appointment Offered? No Katiana Tucker 03/28/2018 15:02 documented in this encounter Plan of Treatment Not on filedocumented as of this encounter Visit Diagnoses Not on filedocumented in this encounter Care Teams Worm Picker Relationship Specialty Start Date End Date Krisetn Fontaine MD PCP - General 02/08/18 11/21/18 documented as of this encounter
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
--- OUTSIDE RECORDS SUMMARY | 2021-10-28 15:08 | XMS_ITS | Encounter Summary ---
:1990 Author Organization [facility] Address [address] [place] [address] Care Team Providers Name Role Phone Michelle Singer PRIVATE DUTY NURSE Primary Care Provider Gallo Small PRIVATE DUTY NURSE Primary Care Provider Puneet Borrego RPA Primary Care Provider [phone] Encounter Details Date Type Department Care Team Description 06/05/[address] [facility] Unknown, Provider, Pathology & Laboratory [facility] [address] [place] [address] Social History Tobacco Use Types Packs/Day Years [...] Procedure Name Priority Date/Time Associated Comments Diagnosis CHLAMYDIA/N. Routine 06/04/2019 19:05 Results for this GONORRHOEAE AMPLIFIED EST proced ure are in RNA the results section. documented in this encounter Results CHLAMYDIA/N. GONORRHOEAE AMPLIFIED RNA (06/04/2019 19:05 EST) Pathologist Sig nature Gonococcus Result Negative Negative [facility] Chlamydia Result Negative Negative [facility] Specimen Swab - Specimen from uterine cervix (spe cimen) Performing Organization Address City/State/ZIP Code Phon e Number [facility] [address] [place] [id number] SERVICES documented in this encounter Visit Diagnoses Not on filedocumented in this encounter Additional Health Concerns Infection Onset Date Last Indicated Resolved Time R/O COVID-19 10/30/2019 10/30/2019 10/30/2019 15:36 EDT documented as of this encounter Care Teams Farmworker [employer] Relationship Specialty Start Date End Date Michelle Singer PRIVATE DUTY NURSE PCP - General 12/03/18 07/01/19 Gallo Small NP PCP - General Family Medicine - Primary 07/02/19 07/11/21 Care Puneet Borrego, SANDY PCP - General Family Medicine - Primary 07/12/[address] [place] [id number] documented as of this encounter
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
--- OUTSIDE RECORDS SUMMARY | 2021-10-28 15:08 | XMS_ITS | Encounter Summary ---
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 pain treatment will be at the discretion of the provider following up with the patient based on their clinical assessment. Condition at departure from the Emergency Department: Stable PCP: Gallo Gregory was available for supervision. 10/30/2019 16:12 No flowsheet data found. Kitty Whiting RN - 10/30/2019 1426 EDT Renetta Lopez 89 coming from [facility] with hypoxia and bradycardia Sekou Brian RN - 10/30/2019 1307 EDT Chief Complaint Patient presents with ??? Near Syncope Patient was being evaluated at [facility] for ongoing SOB/Dizziness at work. DUring orthstatic vitals patient pulse dropped (49 bpm) and SpO2 decreased (89%). Patient endorses only feeling dizzy once she was sat down. Patient had complete syncopal episode last week at home. Patient A/O x4, VSS. + Covid screening for SOB documented in this encounter Miscellaneous Notes Plan of Care - Ruth Howard RN - 10/31/2019 0620 EDT Manager [employer] Data: [employer] Ebs Architect took over care of this patient at 1900. Admission process completed. No vertigo reported. No near syncopal episodes. Orthostatic BP's completed twice. VSS. Action: Scheduled medications administered per JUN. No PRN medications given. Quiet environment provided. Frequent rounding. Response: Appeared to be sleeping; respirations equal & unlabored. RUTH HOWARD RN 10/31/2019 6:20 lan of Care - Tomy Theodore RN - 10/30/20192036 EDT Problem: Daily Care Plan Goals Goal: Care Plan Documentation Flowsheets (Taken 10/30/20192023) Area of Focus: Safety Goal This Shift: Patient will remain safe while here at hospital Note: D : I assumed patient care at 1600, a transfer from ED, A & O able to make her needs known, C/O dizziness , and SOB. A : Patient was redirected to her room. Helped to order food, assessment done, hourly checks done , we encouraged patient to call if needs help. D : Patient is in bed resting comfortably, non apparent S/S of pain.her call light is within reach. documented in this encounter Plan of Treatment Scheduled Referrals Name Type Priority Associated Diagnoses Order S chedule AMB CONS/FOLLOW UP Outpatient Referral Routine Postural dizzin ess Expected: PRIMARY CARE with presyncope 10/31/2019 PHYSICIAN (Approximate) documented as of this encounter Procedures Procedure Name Priority Date/Time Associated Comments Diagnosis COMPLETE BLOOD COUNT Routine 10/31/2019 6:39 Resu lts for this EDT procedure are i n the results section. CREATININE Routine 10/31/2019 6:39 Results for this EDT procedure are i n the results section. ELECTROLYTES Routine 10/31/2019 6:39 Results for this EDT procedure are i n the results section. NEBULIZER TX Routine 10/30/2019 19:03 INTERMITTENT EDT POCT US ED CARDIAC STAT 10/30/2019 16:36 Resul ts for this EDT procedure are i n the results section. POCT CSN BARCODE STAT 10/30/2019 15:40 Results for this URINE PREG TEST EDT procedure ar e in the results section. POCT CSN BARCODE STAT 10/30/2019 15:40 Results for this URINE DIPSTICK EDT procedure are in the results section. POCT URINE CLINITEK STAT 10/30/2019 15:37 Resu lts for this (DIPSTICK) - DOES NOT EDT proced ure are in REFLEX the results section. POCT URINE DIPSTICK, STAT 10/30/2019 15:37 Res ults for this CLINITEK EDT procedure are i n the results section. POCT TEST, STAT 10/30/2019 15:35 Res ults for this CLINITEK ORDER EDT procedure are in the results section. POCT TEST, STAT 10/30/2019 15:35 Res ults for this CLINITEK EDT procedure are i n the results section. HOLD SST STAT 10/30/2019 13:16 Results for this EDT procedure are i n the results section. HOLD BLUE TOP STAT 10/30/2019 13:16 Results fo r this EDT procedure are i n the results section. HIGH SENSITIVITY Add-On 10/30/2019 12:13 Results for this C-REACTIVE PROTEIN EDT procedure are in (CARDIOVASCULAR the results DISEASE) section. TSH STAT Add-on 10/30/2019 12:13 Results for this EDT procedure are i n the results section. BASIC METABOLIC PANEL STAT Add-on 10/30/2019 12:13 Re sults for this (BMP) EDT procedure are i n the results section. documented in this encounter Results COMPLETE BLOOD COUNT (10/31/2019 6:39 EDT) Pathologist Sig nature WBC 7.40 4.00 - 12.40 K/cmm [facility] RBC 4.71 3.86 - 5.04 M/cmm [facility] Hemoglobin 15.0 11.6 - 15.2 gm/dL [facility] HCT 43.4 34.9 - 44.4 % [facility] MCV 92 81 - 98 fl [facility] MCH 31.8 26.7 - 33.3 pg [facility] MCHC 34.6 32.1 - 35.9 gm/dL [facility] RDW-CV 12.1 <14.7 % [facility] RDW-SD 41.2 <50.4 fl [facility] PLT 184 141 - 377 K/cmm [facility] MPV 12.1 9.5 - 12.7 fl [facility] Specimen Blood - Venous blood (substance) Performing Organization Address [facility] Phon e Number [facility] [address] [phone] SERVICES CREATININE (10/31/2019 6:39 EDT) Creatinine 0.63 0.52 - 1.04 [facility] mg/dL LABORATORY SERVICES eGFR 122Comment: eGFR >60 [facility] calculated using mL/min/1.73m2 LABORATORY SERVICES CKD-EPI equation for non- Americans. Multiply eGFR by 1.16 for patients. Specimen Blood - Venous blood (substance) Performing Organization Address [facility] Phon e Number [facility] [address] [place] [address] SERVICES ELECTROLYTES (10/31/2019 6:39 EDT) Pathologist Sig nature Sodium 136 136 - 145 mEq/L [facility] Potassium 4.8 3.5 - 5.0 mEq/L [facility] Chloride 107 96 - 110 mEq/L [facility] ORY SERVICES CO2 Total 23 22 - 32 mEq/L [facility]Y SERVICES Specimen Blood - Venous blood (substance) Performing Organization Address [facility] Phon e Number [facility] [address] [place] [address] SERVICES POCT US ED CARDIAC (10/30/2019 16:36 EDT) Anatomical Region Laterality Modality Ultrasound Specimen Narrative [facility] - 10/30/2019 17:58 EDT [facility] - Ultrasound Exam Date: 10/30/2019 Exam Type: POCT US ED CARDIAC Detention Officer: Constance Maxwell MD Attending: N/A Worksheet: [id number] (POCT US ED CARDIAC) Exam Information: Exam Type: ?? Clinically indicated Indication(s) for Exam: ?? The exam was performed with the foll owing indications: Dyspnea Views Obtained & Images Saved for These Views: ?? The pericardial sac, myocardium, 4 c hambers, and IVC were identified using the following views: Subxiphoid, Parasternal long-axis Findings: ?? Pericardial Effusion: No pericardial effusion ?? Cardiac activity: Cardiac activity n ormal Interpretation: ?? Normal limited cardiac ultrasound Confirmatory study: ?? What confirmatory study was done?: N o additional imaging ordered during ED evaluation US POCUS Preliminary Signature: ?? POCUS Preliminary Signature: Not sig vita Physician Signature: ?? I review and approve of the document ation above.: Signed by Constance Maxwell MD on October at 5:58:07 PM This exam was performed and interpreted by the [facility] ED Staff Procedure Note Constance Maxwell MD - 10/30/2019 [facility] - Ultrasoun d Exam Date: 10/30/2019 Exam Type: POCT US ED CARDIAC Detention Officer: Constance Maxwell MD Attending: N/A Worksheet: [id number] (POCT US ED CARDIAC) Exam Information: Exam Type: Clinically indicated Indication(s) for Exam: The exam was performed with the followi ng indications: Dyspnea Views Obtained & Images Saved for These Views: The pericardial sac, myocardium, 4 malgorzata bers, and IVC were identified using the following views: Subxiphoid, Parasternal long-axis Findings: Pericardial Effusion: No pericardial ef fusion Cardiac activity: Cardiac activity norm al Interpretation: Normal limited cardiac ultrasound Confirmatory study: What confirmatory study was done?: No a dditional imaging ordered during ED evaluation US POCUS Preliminary Signature: POCUS Preliminary Signature: Not signed Physician Signature: I review and approve of the documentati on above.: Signed by Constance Maxwell MD on October at 5:58:07 PM This exam was performed and interpreted by the [facility] ED Staff Performing Organization Address City/[facility]/ZIP Code Phon e Number [facility] POCT CSN BARCODE URINE DIPSTICK (10/30/2019 15:40 EDT) Pathologist Sig nature Hold Hold [facility] Specimen Urine - Urine, Clean Catch Performing Organization Address [facility] Phon e Number [facility] [address] [place] [address] SERVICES POCT CSN BARCODE URINE PREG TEST (10/30/2019 15:40 EDT) Pathologist Sig nature Hold Hold [facility] Specimen Urine - Urine, Clean Catch Performing Organization Address [facility] Phon e Number [facility] [address] [place] [address] SERVICES POCT URINE DIPSTICK, CLINITEK (10/30/2019 15:37 EDT) Color, UA Yellow Yellow [facility] Clarity, UA Clear Clear [facility] Glucose, UA Negative Negative mg/dL [facility] Bilirubin, UA Negative Negative [facility] Ketones, UA Negative Negative mg/dL [facility] Specific [place], 1.010 1.001 - 1.035 [facility]ORATORY SERVICES Blood, UA Negative Negative [facility] pH, UA 7.0 <=8 [facility] Protein, UA Negative Negative mg/dL [facility] Urobilinogen, UA 0.2 0.2 - 1.0 EU/dL [facility] Nitrite, UA Negative Negative [facility] Leuk Esterase Negative Negative [facility] x ray examiner of aircraft ID [id number] [facility] HN LAB COMMENT Test performed at [facility] ([place], UR) Emergency [facility]ENTER LABORATORY Department SERVICES Specimen Urine - Urine, Clean Catch Performing Organization Address [facility] Phon e Number [facility] [address] [place] [address] SERVICES POCT TEST, [facility] (10/30/2019 15:35 EDT) UPT Result Negative Negative [facility] x ray examiner of aircraft ID [id number] [facility] HN LAB COMMENT Test performed at [facility] ([facility], UPT) Emergency LABORATORY DepartmentComment: SERVICES False negative results may occur in women who are beyond 5-8 weeks gestation. Diagnosis of should be based on a correlation of test results with typical clinical signs and symptoms. Specimen Urine - Urine, Clean Catch Performing Organization Address [facility] Phon e Number [facility] [address] [place] [address] SERVICES HOLD SST (10/30/2019 13:16 EDT) Pathologist Sig nature Hold Hold [facility] SERVICES Specimen Blood - Venous blood (substance) Performing Organization Address [facility] Phon e Number [facility] [address] [place] [address] SERVICES HOLD BLUE TOP (10/30/2019 13:16 EDT) Pathologist Sig nature Hold Hold [facility] Specimen Blood - Venous blood (substance) Performing Organization Address [facility] Phon e Number [facility] [address] [place] [address] SERVICES HIGH SENSITIVITY C-REACTIVE PROTEIN (CARDIOVASCULAR DISEASE) (10/30/2019 12:13 EDT) High Sensitivity 0.22 See Note [facility] CRP Comment: mg/L [facility]ENTER LABORATORY SERVICES Reference Range: ??Source: [employer] Clinical Practice Recommendations, 2003 ??Low Risk: ? <1.0 mg/L ??Average Risk: ?? 1.0 - 3.0 mg/L ??High Risk: ?>3.0 mg/L ??Indeterminate*: >10.0 mg/L ??*May be an indication of another source of inflamma tion or infection Specimen Blood - Venous blood (substance) Performing Organization Address [facility] Phon e Number [facility] [address] [place] [address] SERVICES TSH (10/30/2019 12:13 EDT) Pathologist Sig nature TSH 2.91 0.47 - 4.68 uIU/mL [facility] Specimen Blood - Venous blood (substance) Narrative [facility] - 10/30/2019 16:21 EDT The results of this assay can be falsely lowered due to the consumption of Biotin. Performing Organization Address City/[facility] Code Phon e Number [facility] [address] [place] [address] SERVICES BASIC METABOLIC PANEL (BMP) (10/30/2019 12:13 EDT) Sodium 138 136 - 145 [facility] mEq/L LABORATORY SERVICES Potassium 4.4 3.5 - 5.0 [facility] Comment: mEq/L LABORATORY SERVICES NOTE: Interpret with caution. Prolonged sample storage may a lter the result. Chloride 105 96 - 110 [facility] mEq/L LABORATORY SERVICES CO2 Total 22 22 - 32 mEq/L [facility] Comment: LABORATORY SERVICES NOTE: Interpret with caution. Prolonged sample storage may a lter the result. Glucose 93 70 - 100 [facility] mg/dL LABORATORY SERVICES Calcium 9.3 8.5 - 10.5 [facility] mg/dL LABORATORY SERVICES Calculated Calcium 8.8 8.5 - 10.5 [facility] mg/dL LABORATORY SERVICES BUN 11 10 - 26 mg/dL [facility] Creatinine 0.62 0.52 - 1.04 [facility] mg/dL LABORATORY SERVICES eGFR 123Comment: eGFR >60 [facility] calculated using mL/min/1.73m2 LABORATORY CKD-EPI equation SERVICES for non- Americans. Multiply eGFR by 1.16 for patients. Specimen Blood - Venous blood (substance) Performing Organization Address [facility] Phon e Number [facility] [address] [place] [address] SERVICES documented in this encounter Visit Diagnoses Diagnosis Postural dizziness with presyncope - Sonal darling Near syncope Syncope and collapse documented in this encounter Admitting Diagnoses Diagnosis Postural dizziness with presyncope documented in this encounter Administered Medications Inactive Administered Medications - up to 3 most recent administrations Medication Order MAR Action Action Date Dose Rate Site acetaminophen (TYLENOL) tablet 650 Given 10/30/2019 20:40 EDT 65 0 mg mg 650 mg, oral, EVERY 6 HOURS PRN, Starting on Kelly 10/30/19 at 1857, Until Sun10/31/19 at 1443, Pain, Fever, Routine ipratropium-albuteroL (DUONEB) 0.5 mg-3 mg(2.5 mg base)/3 mL nebulizer solution 3 mL 3 mL, nebulization, EVERY 6 HOURS PRN, S tarting on Kelly 10/30/19 at 1903, Until Sun10/31/19 at 1443, Wheezing, Routine meclizine (ANTIVERT) tablet 25 mg Given 10/30/2019 15:48 EDT 25 mg 25 mg, oral, NOW X1, 1 dose, On Sun10/30/19 at 1530, STAT pantoprazole (PROTONIX) tablet 40 mg Given 10/31/2019 9:36 EDT 40 mg 40 mg, oral, DAILY, First dose (after last modification) on Sun10/31/19 at 0900, Until Discontinued, Routine sertraline (ZOLOFT) tablet 50 mg Given 10/31/2019 9:36 EDT 50 mg 50 mg, oral, DAILY, First dose on Sun10/31/19 at 0900, Until Discontinued, Routine sodium chloride 0.9 % BOLUS 1,000 mL New Bag 10/30/2019 15:40 EDT 1,000 mL 1,000 mL, intravenous, NOW X1, 1 dose, On Kelly 10/30/19 at 1530, STAT documented in this encounter Discontinued Medications Medication Sig Discontinue Reason Start Date End Date cyclobenzaprine Take 1 Tab by Therapy completed 01/29/20192019 (FLEXERIL) 10 mg tablet mouth 3 times daily as needed for Muscle Spasms. sumatriptan (IMITREX) 25 Take 1 Tab by Therapy completed 07/02/2019 10/30/2019 mg tablet mouth as needed for Migraine. albuterol 90 Inhale 1 Puff as Patient Stopped 10/30/2019 10/30/19 20 mcg/actuation inhaler directed every 6 Taking hours as needed for Wheezing. ondansetron (ZOFRAN-ODT) Take 4 mg by mouth Duplicate order 10/30/2019 4 mg disintegrating every 8 hours as tablet needed for Nausea. sertraline (ZOLOFT) 25 mg Take 1 Tab by Reorder 07/02/2019 0 10/31/2019 tablet mouth daily. May increase to 50mg (two tab) once daily after one week if well tolerated. omeprazole (PRILOSEC) 20 Take 1 Cap by 11/28/2018 mg capsule mouth daily for 360 days. documented as of this encounter Active and Recently Administered Medications Times are shown in EDT. Scheduled Medication Order 10/29/2019 10/30/2019 10/31/2019 meclizine (ANTIVERT) tablet 25 mg (COMPLETED) 1548 (Given - Provider: Sekou Brian, RN) 25 mg, oral, NOW X1, 1 dose, Kelly 10/30/19 at 1530, STAT pantoprazole (PROTONIX) tablet 40 mg 09 (Given - Provider: Dami Hoover, KELSI) 40 mg, oral, DAILY, First dose on Sun at 0900, Until Discontinued, Routine sertraline (ZOLOFT) tablet 50 mg 09 (Given - Provider: Dami Hoover, KELSI) 50 mg, oral, DAILY, First dose on Sun at 0900, Until Discontinued, Routine sodium chloride 0.9 % BOLUS 1,000 mL (COMPLETED) 1540 (New Bag - Provider: Sergio Cevallos)1627 (Completed - Provider: Sekou Brian, KELSI) 1,000 mL, intravenous, NOW X1, 1 dose, Kelly 10/30/19 at 1530, STAT PRN Medication Order 10/29/2019 10/30/2019 10/31/2019 acetaminophen (TYLENOL) tablet 650 mg 20 40 (Given - Provider: Ruth Howard, KELSI) 650 mg, oral, EVERY 6 HOURS PRN, Startin g Kelly 10/30/19 at 1857, Until Sun10/31/19 at 1443, Pain, Fever, Routine ipratropium-albuteroL (DUONEB) 0.5 mg-3 mg(2.5 mg base)/3 mL nebulizer solution 3 mL 3 mL, nebulization, EVERY 6 HOURS PRN, S tarting Kelly 10/30/19 at 1903, Until Sun10/31/19 at 1443, Wheezing, Routine ramelteon (ROZEREM) tablet 8 mg 8 mg, oral, AT BEDTIME PRN, Starting Kelly 10/30/19 at 1857, Until Sun10/31/19 at 1443, Sleep, Routine senna (SENOKOT) tablet 2 Tab 2 Tab, oral, AT BEDTIME PRN, Starting Th u 10/30/19 at 1857, Until 10/31/19 at 1443, Constipation, Routine documented in this encounter Orders Medications Ordered That Might Not Have Count Last Ord ered Date First Ordered Date Been Administered ipratropium-albuteroL (DUONEB) 0.5 mg-3 1 10/30/19 20 mg(2.5 mg base)/3 mL nebulizer solution 3 mL pantoprazole (PROTONIX) tablet 40 mg 1 10/30/2019 ramelteon (ROZEREM) tablet 8 mg 1 10/30/2019 senna (SENOKOT) tablet 2 Tab 1 10/30/2019 Diet Count Last Ordered Date First Ordered Date DISCHARGE DIET 1 10/31/2019 Nursing Count Last Ordered Date First Ordered Date ACTIVITY INSTRUCTIONS 1 10/31/2019 BATHING INSTRUCTIONS 1 10/31/2019 PATIENT AT LOW RISK FOR VTE: RISK OF 1 10/30/2019 PHARMACOLOGIC PROPHYLAXIS OUTWEIG Respiratory Care Count Last Ordered Date First Ordered Date NEBULIZER TX INTERMITTENT 1 10/30/2019 Admission Count Last Ordered Date First Ordered Date INITIATE OBSERVATION STATUS 1 10/30/2019 Transfer Count Last Ordered Date First Ordered Date ED BED REQUEST 1 10/30/2019 TEACHING SERVICE 1 10/30/2019 Discharge Count Last Ordered Date First Ordered Date DISCHARGE PATIENT 1 10/31/2019 documented in this encounter Additional Health Concerns Infection Onset Date Last Indicated Resolved Time R/O COVID-19 10/30/2019 10/30/2019 10/30/2019 15:36 EDT documented as of this encounter Care Teams Bulk Sealer Operator Relationship Specialty Start Date End Date Gallo Small NP PCP - General Family Medicine - Primary 07/02/19 07/11/21 Care documented as of this encounter
--- OUTSIDE RECORDS SUMMARY | 2021-10-28 15:08 | XMS_ITS | Encounter Summary ---
:1990 Author Organization [facility] Address [address] [place] [address] Care Team Providers Name Role Phone Michelle Singer OCULAR CARE AIDE Primary Care Provider Reason for Visit Reason Onset Date Comments Patient Outreach 06/24/2019 confirmed with daja macias that they need to still be seen Encounter Details Date Type Department Care Team Description 06/24/2019 Telephone [facility] Gallo Small Pati ent Outreach Family Medicine - OCULAR CARE AIDE (confirmed with patient [place] [facility] that they need to still [facility], be seen) So [facility] [id number] [phone] Social History Tobacco Use Types Packs/Day Years [...] this encounter Miscellaneous Notes Telephone Encounter - Maddy Pressley - 06/24/2019 1649 EDT Called to cancel patients appointment but they have control which needs to be taken out so will keep her appointment and I asked travel screening questions. Maddy Pressley documented in this encounter Plan of Treatment Not on filedocumented as of this encounter Visit Diagnoses Not on filedocumented in this encounter Care Teams Securities Attorney Relationship Specialty Start Date End Date Michelle Singer, NIRANJAN PCP - General 12/03/18 07/01/19 documented as of this encounter
--- OUTSIDE RECORDS SUMMARY | 2021-10-28 15:08 | XMS_ITS | Encounter Summary ---
:1990 Author Organization [facility] Address [address] [place] [address] Care Team Providers Name Role Phone Michelle Singer NP Primary Care Provider Encounter Details Date Type Department Care Team Description 06/04/2019 Results Only [facility] - [facility] [address], [place] [phone] (Wo rk) Social History Tobacco Use Types [...] Procedure Name Priority Date/Time Associated Comments Diagnosis CHLAMYDIA/CG AMP Routine 06/04/2019 19:05 Results for this RNA,GENITAL - PMC EST procedure are in the results section. WET PREP Routine 06/04/2019 19:05 Results for this EST procedure are i n the results section. UA MICROSCOPIC - PMC Routine 06/04/2019 18:39 Res ults for this EST procedure are i n the results section. TEST, URINE Routine 06/04/2019 18:39 Re sults for this EST procedure are i n the results section. BACTERIAL CULTURE, Routine 06/04/2019 18:39 Resul ts for this URINE EST procedure are i n the results section. documented in this encounter Results CHLAMYDIA/CG AMP RNA,GENITAL - PMC (06/04/2019 19:05 EST) Chlamydia Result Negative Negative [facility] GC Result Negative Negative [facility] Comment: CENTER LAB Source:CVX NOTE: RESULTS HAVE BEEN REFORMATTED PLEASE REVIEW RESULTS CAREFULLY THE LOCATION OF INFORMATION MAY HAVE CHANGED Test performed or referred by The [address] [address] Specimen Narrative [facility] - 06/06/2019 1 4:39 EST CVX ?? Performing Organization Address City/State/[facility] Code Phon e Number [facility] [address] [place] [address] [facility] WET PREP (06/04/2019 19:05 EST) Specimen Narrative [facility] - 06/04/2019 1 9:37 EST ?? RUN DATE: 06/04/19 ? [facility]: [facility] *LIVE* ? PAGE 1 ? RUN TIME: 1936 ?Specimen Inquiry ? PATIENT: RENETTA DAWKINS ?ACCT: [id number] LOC: ??ED ? U: [id number] ? AGE/SX: 29/F ? ROOM: ?RE06/04/19 ?? REG DR: ??Kel Patel MD ? : ?1990 ?? BED: ? DIS: ? STATUS: REG ER ? TLOC: ? SPEC #: [id number] ?JESSIE: ? STATUS: ??COMP ? REQ #: [id number] ?RECD: 06/04/19 ? SUBM DR: Kel Patel MD ? SOURCE: VAGINAL ? ENTR: 06/04/19 ? OTHR : Gallo Small BEHAVIORAL SERVICES TECH ? SPDESC: ? ORDERED: ??WET PREP ?Procedure ? Result ?WET PREP/SALINE,VAGINAL ??Final ?Trichomonas (Wet Prep): ? None Seen ?Clue Cells (Wet Prep): ?None Seen ?Yeast (Wet Prep): ? None Seen ? END OF REPORT ? Performing Organization Address City/State/ZIP Code Phon e Number [facility] [address] [place] [address] [facility] (ABNORMAL) BACTERIAL CULTURE, URINE (06/04/2019 18:39 EST) Urine Culture ESCHERICHIA COLI (A) [facility] Comment: CENTER LAB Greater than 100,000 CFU/ml Escherichia coli Cefazolin susceptibility results can be used to predic t susceptibility results for the following oral cephalosporins when used for therapy of uncomplicated UTIs due to E.coli, K.pneumoniae, and P.mirabilis: cefaclor , cefdinir, cefpodoxime, cefprozil, cefuroxime, cephalexin, loracarbef. Cefdinir, cefpodox tang, and cefuroxime may be tested individually because some isolates may be susceptibile to these agents while nancy ting resistance to cefazolin. Please note that only cefpodo britany and cephalexin are on the [facility] inpatient formulary. URINE COMMENT See Below [facility] - [facility] Comment: CENTER LAB NOTE: RESULTS HAVE BEEN REFORMATTED PLEASE REVIEW RESULTS CAREFULLY THE LOCATION OF INFORMATION MAY HAVE CHANGED ESCHERICHIA COLI - VITEK SUSCEPTIBILITY Ampicillin - Susceptible Cefazolin - Susceptible Ceftriaxone - Susceptible Ciprofloxacin - Susceptible Ertapenem - Susceptible Meropenem - Susceptible Nitrofurantoin - Susceptible Piperacillin Tazobactam - Susceptible Trimethoprim-Sulfamethoxazole - Susceptible Source:URI Test performed or referred by The [address] [address] Specimen [facility] - 06/07/2019 1 3:57 EST URI Performing Organization Address City/[facility] Code Phon e Number [facility] [address] [place] [address] [facility] (ABNORMAL) UA MICROSCOPIC - PMC (06/04/2019 18:39 EST) Pathologist Sig nature URINE RBC - PMC 3-10 (A) 0 - 2 hpf [facility] URINE WBC - PMC >50 (A) 0 - 3 hpf [facility] URINE BACTERIA - PMC None Seen None Seen hpf [facility] URINE MUCUS - PMC None Seen lpf [facility] URINE SQUAMOUS None Seen None-Few hpf [facility] EPITHELIAL CELL - [facility] CENTER LAB Specimen Narrative [facility] - 06/04/2019 1 8:56 EST Collection Method Unknown Performing Organization Address City/[facility] Code Phon e Number [facility] [address] [place] [address] [facility] TEST, URINE (06/04/2019 18:39 EST) Pathologist Sig nature Test, Urine Negative Negative [facility] Specimen Narrative [facility] - 06/04/2019 1 8:56 EST Collection Method Unknown Performing Organization Address [facility] Phon e Number [facility] [address] [place] [address] [facility] documented in this encounter Visit Diagnoses Not on filedocumented in this encounter Care Teams Unit Controller Relationship Specialty Start Date End Date Michelle Singer, BEHAVIORAL SERVICES TECH PCP - General 12/03/18 07/01/19 documented as of this encounter
--- OUTSIDE RECORDS SUMMARY | 2021-10-28 15:08 | XMS_ITS | Encounter Summary ---
:1990 Author Organization [facility] Address [address] [place] [address] Care Team Providers Name Role Phone Gallo Small NP Primary Care Provider Reason for Visit Reason Onset Date Comments Medications Refill 07/23/2019 Encounter Details Date Type Department Care Team Description 07/23/2019 Telephone [facility] Rafal Diehl ons Refill Gastroenterology - [facility] Ramandeep Muñoz [address] [address] [facility] [phone] [facility] [address] [place] [address] (Wo rk) Social History Tobacco Use Types [...] been in contact with No / Unsure 07/02/2019 8:59 EDT someone who was confirmed or suspected [...] this encounter Miscellaneous Notes Telephone Encounter - Emile Elder RN - 07/23/[address] Diehl, patient should get prescription for Zofran from her PCP. RN called patient and lefta message relaying Dr. Diehl's message, left the office phone number if she had any further questions. elephone Encounter - Christine Westbrook - 07/23/2019 1111 EDT Asking for refill of Zofran. documented in this encounter Plan of Treatment Not on filedocumented as of this encounter Visit Diagnoses Not on filedocumented in this encounter Care Teams Commission Auditor Relationship Specialty Start Date End Date Gallo Small NP PCP - General Family Medicine - Primary 07/02/19 07/11/21 Care documented as of this encounter
--- OUTSIDE RECORDS SUMMARY | 2021-10-28 15:08 | XMS_ITS | Encounter Summary ---
:1990 Author Organization [facility] Address [address] [place] [address] Care Team Providers Name Role Phone Michelle Singer NP Primary Care Provider Encounter Details Date Type Department Care Team Description 06/04/2019 Results Only [facility] - [facility] [address], [place] [phone] (Wo rk) Social History Tobacco Use [...] Name Priority Date/Time Associated Diagnosis Comme nts UA (CULTURE IF Routine 06/04/2019 18:39 Results f or this POSITIVE) - [facility] EST procedure ar e in the results section. documented in this encounter Results (ABNORMAL) UA (CULTURE IF POSITIVE) - PMC (06/04/2019 18:39 EST) URINE COLOR - [facility] Yellow Straw/Yello LAB URINE APPEARANCE - Hazy Clr/Hazy [facility] LAB URINE PH - [facility] 7.5 5.0 - 9.0 LAB UR SPECIFIC GRAVITY 1.009 1.001 - 1.035 [facility] (REFRACTOM) - [facility] CENTER LAB URINE PROTEIN - [facility] 30 (A) Negative mg/dL LAB URINE GLUCOSE (UA) - Negative Negative mg/dL [facility] URINE KETONES - [facility] Negative Negative mg/dL LAB URINE BILIRUBIN - Negative Negative [facility] URINE BLOOD - [facility] Moderate (A) Negative LAB URINE UROBILINOGEN - 0.2 0.2 - 1.0 [facility] E.U./dL [place] LAB URINE NITRATE - [facility] Negative Negative LAB URINE LEUKOCYTE Moderate (A) Negative [facility] ESTERASE - [facility] CENTER LAB URINE CULTURE CULTURE [facility] COMMENTS - [facility] SETUPComment: CENTER LAB Specimen will be cultured. Specimen Narrative LAB - 06/04/2019 1 8:56 EST Collection Method Unknown Performing Organization Address City/State/ZIP Code Phon e Number LAB [address] [place] [address] LAB documented in this encounter Visit Diagnoses Not on filedocumented in this encounter Care Teams Chief Wheelage Clerk Relationship Specialty Start Date End Date Michelle Singer, CARD CUTTER HELPER PCP - General 12/03/18 07/01/19 documented as of this encounter
--- OUTSIDE RECORDS SUMMARY | 2021-10-28 15:08 | XMS_ITS | Encounter Summary ---
:1990 Author Organization [facility] Address [address] [place] [address] Care Team Providers Name Role Phone Gallo Small RECORDS MANAGEMENT ASSOCIATE Primary Care Provider Reason for Visit Reason Onset Date Comments Medication Management 12/16/2019 Encounter Details Date Type Department Care Team Description 12/16/2019 Telephone [facility] Gallo Small, [facility] cation Management Family Medicine [address] [facility] [phone] (Wo rk) Social History Tobacco Use Types [...] 1 Tab by mouth 30 Tab 2 12/24/2019 03/02/2020 mg tablet daily. sertraline (ZOLOFT) 50 mg Take 1 Tab by mouth 30 Tab 2 0 12/24/2019 04/09/2020 tablet daily. documented in this encounter Miscellaneous Notes Telephone Encounter - Hayder Zuniga RN - 12/24/2019 1324 EDT Images from the original note were not included. Gallo Small APRN [facility]; [facility] Just now (13:22) OK to fill (rx sent). ??I know she doesn't want to schedule, but I need to see her periodically to monitor the medications. ??It would be particularly good to check in as I wasn't the original prescriber for either of these meds. ??Please encourage her to schedule a f/u sometime in the next 90 days. Thx! Message text elephone Encounter - Char Contreras - 12/24/2019 1059 EDT Patient is out of the medications and is wondering what so would like her to do elephone Encounter - Elizabeth Barbosa - 12/17/2019 1128 EDT Called Pt to make an appt per RN request, Pt frustrated that she has to go without the med , asked what's the purpose of the appt,? when offered some available appt to Pt none of them worked because she has other appt with her kidsand then she will be out of town till the beginning of the January and then she starts work , so it seemed no dates offered is working for Pt for an appt and requested a call from the nurse to explain the purpose of this appt and to address the medication issue elephone Encounter - Elyssa Martinez RN - 12/17/2019 1007 EDT Pended orders, routing to [facility] to schedule appt as patient was due for a visit around 10/02/19. Will refill after scheduled. elephone Encounter - Hillary Benavides - 12/16/2019 1228 EDT Reason for Call: Medication Management Summary/Symptoms: Patient was in the hospital end of October. They put her on pantaprazole. She is wondering if she needs to continue this. Is so, she will need a new script. Also, was put on Sertraline, 2-25mg per day. Insurance will not cover 2 tabs a day. Needs script [id number], once a day. Onset and Duration? Appointment Offered? No Hillary Benavides 12/16/2019 12:28 documented in this encounter Plan of Treatment Not on filedocumented as of this encounter Visit Diagnoses Not on filedocumented in this encounter Discontinued Medications Medication Sig Discontinue Reason Start Date End Date sertraline (ZOLOFT) 25 mg Take 2 Tabs by Dose adjustment 10/31/2019 12/17/2019 tablet mouth daily. pantoprazole (PROTONIX) 20 Take 1 Tab by Reorder 10/31/2019 12/17/2019 mg tablet mouth daily. documented as of this encounter Care Teams Food Service Worker Hospital Relationship Specialty Start Date End Date Gallo Small NP PCP - General Family Medicine - Primary 07/02/19 07/11/21 Care documented as of this encounter
--- OUTSIDE RECORDS SUMMARY | 2021-10-28 15:08 | XMS_ITS | Encounter Summary ---
:1990 Author Organization [facility] Address [address] [place] [address] Care Team Providers Name Role Phone Gallo Small CARTOGRAPHIC DRAFTER Primary Care Provider Reason for Visit Reason Onset Date Comments Medications Refill 07/23/2019 Medications Refill 07/28/2019 Encounter Details Date Type Department Care Team Description 07/23/2019 Refill [facility] Miracle Small NP Medications Refill; Family Medicine [address] Medications Refill [address] [phone] [place] [address] [phone] Social History Tobacco Use Types Packs/Day Years [...] making decisions? documented as of this encounter Ordered Prescriptions Prescription Sig Dispensed Refills Start Date End Date ondansetron (ZOFRAN-ODT) 4 Take 1 Tab by mouth 30 Tab 0 07/28/2019 mg disintegrating tablet every 8 hours as needed for Nausea. documented in this encounter Miscellaneous Notes Addendum Note - Joshua Jeff RN - 07/28/2019 1012 EDT Addended by: JOSHUA JEFF on: 07/28/2019 10:12 Modules accepted: Orders elephone Encounter - Joshua Jeff RN - 07/28/2019 0907 EDT Medication(s) Requested: Zofran 4 mg ODT Preferred Pharmacy: [facility] Is patient out of medication? yes Last Refill Date: 01/16/19 Last Visit Date with Ordering Provider: 07/02/19 Next Non-Acute Visit Date Scheduled with Care Team:none pending RX pending JOSHUA JEFF RN 07/28/2019 9:58 Spoke to pt- she reports that GI respectfully declined to refill her Zofran 4mg ODT. She is requesting TS to fill her Rx. Pt is not experiencing any N/V today and is aware that TS is out of office today. elephone Encounter - Char Contreras - 07/28/2019 6319 EDT Patient calling back. Wondering if Brent Small is able to fill her medication as her other Dr. Has told her to fill through us. elephone Encounter - Char Contreras - 07/23/2019 1151 EDT Patient calling back to say that the GI office would like Brent Small to start prescribing this. Will not refill for her. elephone Encounter - Joshua Jeff, RN - 07/23/2019 1109 EDT Spoke to pt- Dr Shantia bustos prescribed Zofran for pt- her last PCP was prescribing prior. She states takes the med for nausea associated with GERD. She reports that she does not vomit but is nauseatedenough to not take PO for days at a time. She does not take Zofran on a daily basis and only when she absolutely needs it. Plan- pt is contacting GI to request RF and to inquire about booking an appt as needed for f/u. If pt is unable to reach office she will call back and nursing offered to discuss with Inna Small CARTOGRAPHIC DRAFTER to inquire of he would be comfortable prescribing for pt. Pt in agreement with plan. elephone Encounter - Char Contreras - 07/23/2019 0957 EDT Medication(s) Requested: zofran Preferred Pharmacy[facility] Is patient out of medication? Yes Last Refill Date: 11/28/18 Last Visit Date with Ordering Provider: Historical. Last seen 07/02/19 Next Non-Acute Visit Date Scheduled with Care Team: Yes. Char Contreras 07/23/2019 9:58 documented in this encounter Plan of Treatment Not on filedocumented as of this encounter Visit Diagnoses Not on filedocumented in this encounter Discontinued Medications Medication Sig Discontinue Reason Start Date End Date ondansetron (ZOFRAN-ODT) 4 Take 1 Tab by Reorder 01/16/2019 07/28/2019 mg disintegrating tablet mouth every 8 hours as needed for Nausea. documented as of this encounter Care Teams Chief Warden Relationship Specialty Start Date End Date Gallo Small CARTOGRAPHIC DRAFTER PCP - General Family Medicine - Primary 07/02/19 07/11/21 Care documented as of this encounter
--- OUTSIDE RECORDS SUMMARY | 2021-10-28 15:08 | XMS_ITS | Encounter Summary ---
:[address] [facility] Address [address] [place] [address] Care Team Providers Name Role Phone None, Provider Primary Care Provider Unavailable Encounter Details Date Type Department Care Team Description 11/22/2018 Travel Social History Tobacco Use Types Packs/Day [...] on filedocumented in this encounter Care Teams Medical Art Therapist Relationship Specialty Start Date End Date None, Provider PCP - General 11/22/18 11/24/18 documented as of this encounter
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
--- OUTSIDE RECORDS SUMMARY | 2021-10-28 15:08 | XMS_ITS | Encounter Summary ---
:1990 Author Organization [facility] Address [address] [place] [address] Care Team Providers Name Role Phone Gallo Small COUNT TEAM CLERK Primary Care Provider Reason for Visit Reason Onset Date Comments Dizziness 10/30/2019 Shortness of Breath 10/30/2019 Encounter Details Date Type Department Care Team Description 10/30/2019 Telephone [facility] Gallo Small, Dizz iness; Shortness of Family Medicine - COUNT TEAM CLERK Breath [address], [facility] [phone] [phone] Social History Tobacco Use Types Packs/Day Years [...] this encounter Miscellaneous Notes Telephone Encounter - Cristina Garcia RN - 10/30/2019 0846 EDT Spoke with pt. X1 week- vertigo symptoms. She has a history of vertigo that is usually triggered by a URI or sinus infection; she denies any symptoms of a URI or sinus infection. She does report having a hard time breathing and it feels like she is not getting enough oxygen whenshe breathes. Last she took a deep breath in, blacked out and passed out. This Sunday she was very fatigued. Advised that she have someone drive her to the /ER today for evaluation. Pt agreed with plan and verbalized understanding with no barriers to learning. elephone Encounter - Mar Brewer - 10/30/2019 0843 EDT Reason for Call: Dizziness Summary/Symptoms: Dizzy spells-is prone to vertigo but this feels different . No upper respiratory symptoms, very SOB and having a hard time breathing , has actually passed out Onset and Duration? 1 week Appointment Offered? Mar Brewer 10/30/2019 8:43 documented in this encounter Plan of Treatment Not on filedocumented as of this encounter Visit Diagnoses Not on filedocumented in this encounter Care Teams Ditto Machine Operator Relationship Specialty Start Date End Date Gallo Small NP PCP - General Family Medicine - Primary 07/02/19 07/11/21 Care documented as of this encounter
--- OUTSIDE RECORDS SUMMARY | 2021-10-28 15:08 | XMS_ITS | Encounter Summary ---
:1990 Author Organization [facility] Address [address] [place] [address] Care Team Providers Name Role Phone Gallo Small LEATHER PRODUCTION ARTISAN Primary Care Provider Reason for Visit Reason Onset Date Comments Prior Auth, Medication 08/11/2019 Sertraline Encounter Details Date Type Department Care Team Description 08/11/2019 Telephone [facility] Gallo Small Prio r Auth, Medication Family Medicine - LEATHER [employer] ARTISAN (Sertraline) [address], [facility] [address] [phone] Social History Tobacco Use Types Packs/Day Years [...] this encounter Miscellaneous Notes Telephone Encounter - Gabbi Cheney LPN - 08/11/2019 1138 EDT Prior authorization initiated via CoverMyMeds for Sertraline. Awaiting response. documented in this encounter Plan of Treatment Not on filedocumented as of this encounter Visit Diagnoses Not on filedocumented in this encounter Care Teams Subsurface Augmentee Operator Relationship Specialty Start Date End Date Gallo Small NP PCP - General Family Medicine - Primary 07/02/19 07/11/21 Care documented as of this encounter
--- OUTSIDE RECORDS SUMMARY | 2021-10-28 15:08 | XMS_ITS | Encounter Summary ---
:1990 Author Organization [facility] Address [address] [place] [address] Care Team Providers Name Role Phone Gallo Small NP Primary Care Provider Reason for Visit Reason Comments Shortness of Breath x 3-4 weeks. Speaking in ful l sentences. IN NAD. Oxygen sat 100%. Post nasal drip, intermitten t sore throat. symptoms started about time she stopped smoked. Encounter Details Date Type Department Care Team Description 12/02/2018 Hospital Encounter [facility] John Oliver MD [address] [place] [id number] Patient left without Urgent Care - Heaven Mace, Provider, being seen ([facility] Dx) [address] [place] [address] Social History Tobacco Use Types Packs/Day Years [...] Sign Reading Time Taken Comments Blood Pressure 125/79 12/02/20181907 EDT Pulse 63 12/02/2018 1908 EDT Temperature 37.2 ??C (98.9 ??F) 12/02/2018 1908 EDT Respiratory Rate 14 12/02/20181907 EDT Oxygen Saturation 100% 12/02/20181907 EDT Inhaled Oxygen Concentration - - Weight - [...] for 360 days. ondansetron (ZOFRAN-ODT) 4 Take 4 mg by mouth 0 10/30/2019 mg disintegrating tablet every 8 hours as needed for Nausea. documented as of this encounter Discharge Disposition Disposition Code Departure Means Destination Home or Self Care documented in this encounter ED Notes Constantino Gorman, KELSI - 12/02/20181916 EDT See cc note. Pt c/o intermittent left ear pain since onset of symptoms. Pt also c/o intermittent hoarseness since onset. Pt currently has a sore throat. Zuleyka Ruff RN - 12/02/20181910 EDT Name and verified. documented in this encounter Plan of Treatment Not on filedocumented as of this encounter Visit Diagnoses Diagnosis Patient left without being seen - Primar y Surgical or other procedure not carried out because of patient's decision documented in this encounter Care Teams Shirt Finisher Relationship Specialty Start Date End Date Gallo Small NP PCP - General 11/25/18 12/02/18 documented as of this encounter
--- OUTSIDE RECORDS SUMMARY | 2021-10-28 15:08 | XMS_ITS | Encounter Summary ---
:1990 Author Organization [facility] Address [address] [place] [address] Care Team Providers Name Role Phone Kristen Fontaine MD Primary Care Provider None, Provider Primary Care Provider Unavailable Gallo Smlal FRUIT GRADER Primary Care Provider Michelle Singer FRUIT GRADER Primary Care Provider Encounter Details Date Type Department Care Team Description 04/05/2018 Historical Results [facility] - Kel Campbell MD Only [facility] [address] [place], [place] [address] [address] [place], [place] [id number] [phone] Social History Tobacco Use Types Packs/Day Years [...] Name Priority Date/Time Associated Diagnosis Comme nts HEPATIC & CMP Routine 04/05/2018 14:21 Results fo r this COMBO,FASTING - PMC EST procedur e are in the results section. documented in this encounter Results (ABNORMAL) HEPATIC & CMP COMBO,FASTING - PMC (04/05/2018 14:21 EST) Sodium 140 136 - 145 [facility] Potassium 3.5 3.5 - 5.1 [facility] Chloride 103 96 - 107 [facility] CO2 Total 26.0 21 - 32 [facility] Anion Gap 11.0 [facility] BUN 10 7 - 25 [facility] Creatinine 0.83 0.55 - 1.02 [facility] Estimated GFR >60 >60 [facility] Comment: [facility] EGFR UNITS: mL/min/1.73 m 2 CKD-EPI Equation used to calculate. Glucose 97 70 - 180 [facility] Calcium 8.6 8.5 - 10.5 [facility] CALCIUM,CORRECTED - 8.8 8.5 - 10.5 [facility] BILIRUBIN - PMC 0.30 0.00 - 1.00 [facility] AST 14 (L) 15 - 37 [facility] ALT 27 12 - 78 [facility] Alkaline Phosphatase 87 46 - 116 [facility] Total Protein 7.0 6.4 - 8.2 [facility] Albumin 3.8 3.4 - 5.0 [facility] GLOBULIN - PMC 3.2 [facility] ALBUMIN/GLOBULIN 1.1 [facility] Specimen Narrative [facility] - 04/05/2018 1 5:02 EST Sample collected at time of saline lock or IV placement. Performing Organization Address City/State/ZIP Code Phon e Number [facility] [address] [place] [address] [facility] documented in this encounter Visit Diagnoses Not on filedocumented in this encounter Care Teams [employer] Computer Science Teacher Relationship Specialty Start Date End Date Kristen Fontaine MD PCP - General 02/08/18 11/21/18 None, Provider PCP - General 11/22/18 11/24/18 Gallo Small, FRUIT GRADER PCP - General 11/25/18 12/02/18 Michelle Singer NP PCP - General 12/03/18 07/01/19 documented as of this encounter
--- OUTSIDE RECORDS SUMMARY | 2021-10-28 15:08 | XMS_ITS | Encounter Summary ---
:1990 Author Organization [facility] Address [address] [place] [address] Care Team Providers Name Role Phone Kristen Fontaine MD Primary Care Provider Reason for Visit Reason Onset Date Comments Rash Urticaria 04/11/2018 Encounter Details Date Type Department Care Team Description 04/11/2018 Telephone [facility] Family DeforCara driver LPN Rash; Urticaria Medicine - [address] [address] Social History Tobacco Use Types Packs/Day Years [...] this encounter Miscellaneous Notes Telephone Encounter - Cara Cleveland LPN - 04/19/2018 1252 EST Patient has not scheduled f/u-has not returned calls Will close encounter elephone Encounter - Cara Cleveland LPN - 04/11/2018 1228 EST Left message for patient to call office Patient was seen on 03/31 for hives. Given prednisone, famotidine, and loratidine. Is she feeling better, does she need f/u documented in this encounter Plan of Treatment Not on filedocumented as of this encounter Visit Diagnoses Not on filedocumented in this encounter Care Teams Load Out Person Relationship Specialty Start Date End Date Kristen Fontaine MD PCP - General 02/08/18 11/21/18 documented as of this encounter
--- OUTSIDE RECORDS SUMMARY | 2021-10-28 15:08 | XMS_ITS | Encounter Summary ---
:1990 Author Organization [facility] Address [address] [place] [address] Care Team Providers Name Role Phone Gallo Small NP Primary Care Provider Encounter Details Date Type Department Care Team Description 10/30/2019 Travel Social History Tobacco Use Types Packs/Day [...] documented as of this encounter Care Teams Glue Reel Operator Relationship Specialty Start Date End Date Gallo Small NP PCP - General Family Medicine - Primary 07/02/19 07/11/21 Care documented as of this encounter
--- OUTSIDE RECORDS SUMMARY | 2021-10-28 15:08 | XMS_ITS | Encounter Summary ---
:1990 Author Organization [facility] Address [address] [place] [address] Care Team Providers Name Role Phone Michelle Singer DIRECTOR OF MEDICAL SERVICES Primary Care Provider Gallo Small DIRECTOR OF MEDICAL SERVICES Primary Care Provider Encounter Details Date Type Department Care Team Description 04/24/2019 Orders Only [facility] Gallo Small, Vitaliy roesophageal reflux Family Medicine - DIRECTOR OF MEDICAL SERVICES disease [address] esophagitis (Primary Dx) [address] [facility] [id number] [phone] Social History Tobacco Use Types Packs/Day Years [...] Name Priority Date/Time Associated Diagnosis Comme nts H. PYLORI ANTIGEN Routine 04/24/2019 7:30 Gastroesophageal ref lux Results for this EST disease without procedure ar e in esophagitis the results section. documented in this encounter Results H. PYLORI ANTIGEN (04/24/2019 7:30 EST) Pathologist Sig nature H. Pylori Negative Negative [facility] Specimen Feces - Feces Narrative [facility] - 04/29/2019 14:35 EST Results were obtained with the Premier P latinum HpSA Plus KARINA. Performing Organization Address City/State/ZIP Code Phon e Number [facility] [address] [place] [id number] SERVICES documented in this encounter Visit Diagnoses Diagnosis Gastroesophageal reflux disease without esophagitis - Primary Esophageal reflux documented in this encounter Additional Health Concerns Infection Onset Date Last Indicated Resolved Time R/O COVID-19 10/30/2019 10/30/2019 10/30/2019 15:36 EDT documented as of this encounter Care Teams Ct Technician Relationship Specialty Start Date End Date Michelle Singer NP PCP - General 12/03/18 07/01/19 Gallo Small NP PCP - General Family Medicine - Primary 07/02/19 07/11/21 Care documented as of this encounter
--- OUTSIDE RECORDS SUMMARY | 2021-10-28 15:08 | XMS_ITS | Encounter Summary ---
:1990 Author Organization [facility] Address [address] [place] [address] Care Team Providers Name Role Phone Gallo Small FILM CUTTER Primary Care Provider Reason for Visit Reason Onset Date Comments Medication Management 2020 Encounter Details Date Type Department Care Team Description 2020 Telephone [facility] Gallo Small, [facility] cation Management Family Medicine [address] [facility] [phone] (Wo rk) Social History Tobacco Use [...] Sig Dispensed Refills Start Date End Date norgestimate-ethinyl Take 1 Tab by mouth 84 Tab 3 2019 estradioL (ORTHO daily. TRI-CYCLEN) 0.18/0.215/0.25 mg-35 mcg (28) tablet documented in this encounter Miscellaneous Notes Telephone Encounter - Gallo Small APRN - 2020 1214 EDT OK. Was waiting to hear back from her on her smoking status but apparently she never got the message. (she has quit) Sent rx. Patient aware of dosing, and to use alternate contraceptive for first week. Telephone Encounter - Hillary Benavides - 2020 0914 EDT Reason for Call: Medication Management Summary/Symptoms: Patient had an appt 12/30 and discussed control pills. A script was suppose to be sent to her pharmacy. She went to pharmacy and there was no script. Looks like it was not ordered by provider. Please send to pharmacy if appropriate. Onset and Duration? Appointment Offered? No Hillary Benavides 2020 9:14 documented in this encounter Plan of Treatment Not on filedocumented as of this encounter Visit Diagnoses Not on filedocumented in this encounter Care Teams Supervisor Particleboard Relationship Specialty Start Date End Date Gallo Small, NIRANJAN PCP - General Family Medicine - Primary 07/02/19 07/11/21 Care documented as of this encounter
--- OUTSIDE RECORDS SUMMARY | 2021-10-28 15:08 | XMS_ITS | Encounter Summary ---
:1990 Author Organization [facility] Address [address] [place] [address] Care Team Providers Name Role Phone Gallo Small CHECKING CLERK Primary Care Provider Reason for Visit Reason Comments Other Encounter Details Date Type Department Care Team Description 03/02/2020 Refill [facility] Family Gallo Small, CHECKING CLERK Other Medicine - [place] [phone] (Wo rk) Social History Tobacco Use [...] pantoprazole (PROTONIX) 20 TAKE ONE TABLET BY 30 Tab 1 1 05/02/2019 03/23/2020 mg tablet MOUTH EVERY DAY documented in this encounter Miscellaneous Notes Telephone Encounter - Carina Acharya RN - 03/02/2020 1146 EST Medication(s) Requested: pantoprazole Preferred Pharmacy: [facility] Is patient out of medication? Unknown Last Refill Date: 12/24/19 Last Visit Date with Ordering Provider: 12/31/19 Next Non-Acute Visit Date Scheduled with Care Team: No. CARINA ACHARYA RN 03/02/2020 11:46 documented in this encounter Plan of Treatment Not on filedocumented as of this encounter Visit Diagnoses Not on filedocumented in this encounter Discontinued Medications Medication Sig Discontinue Reason Start Date End Date pantoprazole (PROTONIX) 20 Take 1 Tab by 12/24/2019 03/02/2020 mg tablet mouth daily. documented as of this encounter Care Teams Stone Layout Marker Relationship Specialty Start Date End Date Gallo Small NP PCP - General Family Medicine - Primary 07/02/19 07/11/21 Care documented as of this encounter
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
--- OUTSIDE RECORDS SUMMARY | 2021-10-28 15:08 | XMS_ITS | Encounter Summary ---
:1990 Author Organization [facility] Address [address] [place] [address] Care Team Providers Name Role Phone Michelle Singer NP Primary Care Provider Encounter Details Date Type Department Care Team Description 02/20/2019 Surgery [facility] Rafal Diehl U PPER ENDOSCOPY Endoscopy - [facility] MD PROCEDURE-[address] [address] [facility] [place] [address] (Wo rk) Surgery Details Date/Time Status Location OR Service Patient Case Class Case Tr auma Class Type Case? 02/20/19 Posted [facility] - [facility] GI/ENDO 01 Outpatient Elective Procedure Panel 1 Procedure LRB Anes Op Region Wound Class Commen ts UPPER ENDOSCOPY PROCEDURE-GI N/A IV Sedation Surgeon Surgeon Role Service Panel Rafal Diehl MD Primary Gastroenterology 1 Social History Tobacco Use Types Packs/Day Years [...] Sign Reading Time Taken Comments Blood Pressure 98/69 02/20/2019 1349 EST Pulse - - Temperature - - Respiratory Rate 16 02/20/2019 1349 EST Oxygen Saturation 100% 02/20/2019 1349 EST Inhaled Oxygen Concentration - - Weight [...] Code Departure Means Destination Home or Self Prison documented in this encounter H&P Notes Rafal [...] ENDOSCOPY PROCEDURE (02/24/2019 9:51 EST) Specimen Narrative [facility] END[facility] - 9 9:51 EST Procedure Performed [...] sympt oms Follow up with PCP The??procedure??was??performed??by??Dr. Ada Louis M.D. in the presence of Dr. Rafal Diehl. The attending physician was in the room for the entire procedure. This electronic signature authenticates all electronic and/or handwritten documentation, including orders, generated by the emili r during the episode of care contained in this record. 02/24/2019 09:51:33 AM By Rafal Menjivar Organization Address City/State/ZIP Code Phon e Number [facility] ENDOSCOPY documented in this encounter Visit Diagnoses Diagnosis Epigastric pain Abdominal pain, epigastric documented in this encounter Administered Medications Inactive [...] 1 406 (New Bag - Provider: Fidelina Blue, KELSI)1612 (Completed - Provider: Megan Bray, EKLSI) at 30 mL/hr, 30 mL/hr, intravenous, CONT [...] 019 documented in this encounter Care Teams Drawing Operator Relationship Specialty Start Date End Date Michelle Singer MOLD UNLOADER PCP - General 12/03/18 07/01/19 documented as of this encounter
--- OUTSIDE RECORDS SUMMARY | 2021-10-28 15:08 | XMS_ITS | Encounter Summary ---
:1990 Author Organization [facility] Address [address] [place] [address] Care Team Providers Name Role Phone Gallo Small WEIGHT ENGINEER Primary Care Provider Reason for Visit Reason Comments Medication Management med refill and discuss control options Encounter Details Date Type Department Care Team Description 12/31/2019 Telemedicine [facility] Gallo Small, Katie short (Primary Dx); Family Medicine - WEIGHT ENGINEER Contraceptive education [address] [phone] Social History Tobacco Use Types Packs/Day Years [...] or older) documented as of this encounter Progress Notes Gallo Small APRN - 12/31/2019 1600 EDT Acute Visit Note Patient ID: Renetta Bradley is a 30 y.o. female Date of Service: 01/09/2020 Reason for Visit: Medication Management (med refill and discuss control options) The concept of ???Telemedicine?? has been described [...] in patient???s medical or mental health care. TELEMEDICINE VIDEO VISIT Today's visit was provided through telemedicine video conferencing: The location of the patient : Home The location of the provider: Office The following staff and their role did participate in today's encounter visit: Gallo Small APRN Subjective: Renetta Bradley is a 30 y.o. female who presents today with f/u after ED visit in October. She had a near syncopal event. There was some concern that this was related to her stopping zoloft abruptly. Shewas noted to have some degree of orthostatic hypotension. She was given compression stockings and feels this has helped. Overall her mood is good and she feels improved since last visit. She would like to discuss oral contraceptives. Review of Systems Eyes: Negative for blurred vision and double vision. Cardiovascular: Negative for chest pain and palpitations. Gastrointestinal: Negative for abdominal pain. Musculoskeletal: Negative for joint pain. Skin: Negative for itching. Neurological: Negative for dizziness, loss of consciousness, weakness and headaches. Psychiatric/Behavioral: Negative for depression, substance abuse and suicidal ideas. The patient is not nervous/anxious and does not have insomnia. History: Social, family, and personal medical history reviewed, documented, and updated as needed inthe medical record 01/09/20 Medications: Reviewed and documented in the medical record 01/09/20 Objective: VS: Last menstrual period 12/30/2019. There is no height or weight on file to calculate BMI. Physical Exam Vitals signs and nursing note reviewed. Constitutional: General: She is not in acute distress. Appearance: She is well-developed. HENT: Head: Normocephalic and atraumatic. Eyes: Conjunctiva/sclera: Conjunctivae normal. Neck: Musculoskeletal: Normal range of motion. Pulmonary: Effort: Pulmonary effort is normal. Musculoskeletal: Normal range of motion. Skin: General: Skin is warm and dry. Neurological: Mental Status: She is alert and oriented to person, place, and time. Psychiatric: Behavior: Behavior normal. Assessment/Plan: Renetta was seen today for medication management. Diagnoses and all orders for this visit: Anxiety Contraceptive education mood stable for now. Continue zoloft. She has used IUD and had bleeding, pain. She did well with nexplanon, but would like to go back to OCP. She is not smoking currently, and is aware of the risks of tobacco use. See related encounter for rx details. Reviewed weekend availability and after hours coverage. Patient is in agreement with the plan. Gallo Small APRN 01/09/2020 10:07 Return in about 3 months (around 03/31/2020) for depression/anxiety. documented in this encounter Plan of Treatment Not on filedocumented as of this encounter Visit Diagnoses Diagnosis Anxiety - Primary Anxiety state, unspecified Contraceptive education Other general counseling and advice for contraceptive management documented in this encounter Care Teams Deboning Team Leader Relationship Specialty Start Date End Date Gallo Small, WEIGHT ENGINEER PCP - General Family Medicine - Primary 07/02/19 07/11/21 Care documented as of this encounter
--- OUTSIDE RECORDS SUMMARY | 2021-10-28 15:08 | XMS_ITS | Encounter Summary ---
:1990 Author Organization [facility] Address [address] [place] [address] Care Team Providers Name Role Phone Michelle Singer NP Primary Care Provider Reason for Visit Reason Comments Pharyngitis Sore throat, left sided otal jhonny, and visible tonsillar exudate Encounter Details Date Type Department Care Team Description 12/04/2018 Hospital Encounter [facility] Sekou Prajapati MD [address] [place] [phone] Sore throat (Primary Urgent Care - [facility], Provider, Dx) [address] [address] Social History Tobacco Use Types Packs/Day [...] Sign Reading Time Taken Comments Blood Pressure 106/64 12/04/2018 0950 EDT Pulse 72 12/04/2018 0950 EDT Temperature 37.3 ??C (99.1 ??F) 12/04/2018 0950 EDT Respiratory Rate 16 12/04/2018 0950 EDT Oxygen Saturation - - Inhaled Oxygen [...] as of this encounter Discharge Diagnoses Diagnosis J02.9 Acute pharyngitis, unspecified-J02 .9[ICD-10-CM] documented in this encounter Discharge Instructions AttachmentsThe following attachments cannot be sent through Care Everywhere.Sore Throat (Telugu)documented in this encounter Medications at Time of [...] Care documented in this encounter ED Notes Sekou Katz MA - 12/04/2018 1139 EDT Blood drawn via butterfly needle per protocol, tiger and purple tube(s) sent to lab per order. Sekou Hilton MD, MD - 12/04/2018 1136 EDT DOS: 12/04/2018 Chief Complaint Patient presents with ??? Pharyngitis Sore throat, left sided otalgia, and visible tonsillar exudate The patient is a 28 y.o. female who presents today with Pharyngitis (Sore throat, left sided otalgia, and visible tonsillar exudate) Chief complaint sore throat Began 3 weeks ago. Sore throat has been waxing and waning but present since then. She has had a sensation of postnasal drip and some left ear pain which has resolved. Minimal nasal congestion and feels like the back of her throat is irritated. She noticed some white patchy stuff today and thought she should be seen. Denies any fevers or chills. She has had a little bit of increased fatigue. Denies any past history of mono. She does have a history of a GI ulcer. She feels like those symptoms have been exacerbated lately and she will be seeing GI on Jan 16, has seen her PCP, increased her omeprazole dose to BID and it improved. She has cut back to once daily. She notes that she always gets a bad taste in her mouth at night and that is unchanged. Not awakening with coughing. No emesis. Review of Systems Constitutional: Negative for chills and fever. HENT: Positive for congestion, ear pain, postnasal drip and sore throat. Negative for ear discharge,rhinorrhea and trouble swallowing. Eyes: Negative for discharge and redness. Respiratory: Positive for cough. Negative for chest tightness, shortness of breath and wheezing. Gastrointestinal: Negative for diarrhea, nausea and vomiting. Musculoskeletal: Negative for arthralgias, myalgias and neck stiffness. Skin: Negative for rash. Neurological: Negative for dizziness and light-headedness. No current facility-administered medications for this encounter. [...] mother's boyfriend ??? 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 IBS (irritable bowel syndrome) 01/26/2011 Saw GI in January. Prior to chronic constipation. With , episodic diarrhea. Imodium if persistent diarrhea per GI. Will need re-eval ??? Convulsions ([facility]) 11/23/2010 New onset - hospitalized 11/21/10 - [...] ??? Depressive disorder noted 08/11/2008 ??? Epilepsy ([facility]) ??? Irritable bowel syndrome ??? Migraines 11/15/2010 [...] Maternal Grandfather ??? Cancer Paternal Grandmother BP 106/64 Pulse 72 Temp 99.1 ??F (37.3 ??C) (Temporal) Resp 16 Physical Exam Constitutional: She appears well-developed and well-nourished. No distress. HENT: Head: Normocephalic and atraumatic. Right Ear: External ear normal. Left Ear: External ear normal. Mouth/Throat: No oral lesions. No trismus in the jaw. No uvula swelling. Oropharyngeal exudate (scant left side) and posterior oropharyngeal erythema present. No posterior oropharyngeal edema or tonsillar abscesses. Eyes: Conjunctivae are normal. Neck: Normal range of motion. Neck supple. Pulmonary/Chest: Effort normal. No respiratory distress. Lymphadenopathy: She has cervical adenopathy (anterior, shoddy tender 1 cm). Neurological: She is alert. Skin: Skin is warm and dry. No rash noted. She is not diaphoretic. Psychiatric: She has a normal mood and affect. Her behavior is normal. Consult orders: None PCP: Michelle Singer Results for orders placed or performed during the hospital encounter of 12/04/18 RAPID STREP Result Value Ref Range Rapid Strep A Screen Neg COMPLETE BLOOD COUNT AND DIFFERENTIAL Result Value Ref Range WBC 9.69 4.0 - 12.4 K/cmm RBC 4.43 3.86 - 5.04 M/cmm Hemoglobin 14.6 11.6 - 15.2 gm/dl HCT 41.6 34.9 - 44.4 % MCV 94 81 - 98 fl MCH 33.0 26.7 - 33.3 pg MCHC 35.1 32.1 - 35.9 gm/dl RDW-CV 11.5 <14.7 % RDW-SD 38.8 <50.4 fl PLT 193 141 - 377 K/cmm MPV 11.8 9.5 - 12.7 fl Neutrophils 75.5 % Lymphocytes 17.4 % Monocytes 5.8 % Eosinophils 1.0 % Basophils 0.3 % ABS Neutrophils 7.31 2.20 - 8.85 K/cmm ABS Lymphs 1.69 1.09 - 3.30 K/cmm ABS Monocytes 0.56 0.1 - 0.8 K/cmm ABS Eosinophils 0.10 0.03 - 0.61 K/cmm ABS Basophils 0.03 0.01 - 0.11 K/cmm Type of Diff: Automated MONO-TEST Result Value Ref Range [place]-Test Neg Neg Radiology orders: None Imaging Results None No orders to display Procedures URGENT CARE COURSE A medical screening exam was performed. ASSESSMENT AND PLAN Final diagnoses: Sore throat Suggested trying omeprazole before bed to see if that helps in case reflux is playing a role. O/W viral etiology likely. [place] testing negative. Reviewed symptomatic treatment and indications for follow up. See discharge instructions. No supervision required. DISPOSITION: Discharged The patient's pain was managed to an adequate level weighing risk vs. benefit of further medications. Upon departure from [facility], the patient's pain was 5 on a zero to ten scale. Any further pain treatment will be at the discretion of the provider following up with the patient based on their clinical assessment . Condition at departure from the [facility] : Stable MDM 12/04/2018 14:59 Gomez Pierce MA - 12/04/2018 1007 EDT See CC note. Stated sore throat for x3 weeks. Stated that she felt some swelling and noticed white patches in back of throat this AM. documented in this encounter Plan of Treatment Not on filedocumented as of this encounter Procedures Procedure Name Priority Date/Time Associated Comments Diagnosis MONO-TEST STAT 12/04/2018 11:36 Sore throat Results for this EDT procedure are i n the results section. COMPLETE BLOOD COUNT STAT 12/04/2018 11:36 Sore throat Res ults for this AND DIFFERENTIAL EDT procedure a re in the results section. GROUP A STREP CULTURE Routine 12/04/2018 9:50 Sore throat Res ults for this EDT procedure are i n the results section. RAPID STREP Routine 12/04/2018 9:50 Sore throat Results for this EDT procedure are i n the results section. documented in this encounter Results MONO-TEST (12/04/2018 11:36 EDT) Pathologist Sig nature [place]-Test NegComment: Performed Neg [facility] at [facility], LABORATORY SERVICES [place], [place] Specimen Blood specimen (specimen) - Blood Performing Organization Address City/State/ZIP Code Phon e Number [facility] LABORATORY [address] [place] [address] SERVICES COMPLETE BLOOD COUNT AND DIFFERENTIAL (12/04/2018 11:36 EDT) WBC 9.69 4.0 - 12.4 [facility] K/cmm LABORATORY SERVICES RBC 4.43 3.86 - 5.04 [facility] M/cm LABORATORY SERVICES Hemoglobin 14.6 11.6 - 15.2 [facility] gm/dl LABORATORY SERVICES HCT 41.6 34.9 - 44.4 % [facility] LABORATORY SERVICES MCV 94 81 - 98 fl [facility] LABORATORY SERVICES MCH 33.0 26.7 - 33.3 pg [facility] LABORATORY SERVICES MCHC 35.1 32.1 - 35.9 [facility] gm/dl LABORATORY SERVICES RDW-CV 11.5 <14.7 % [facility] LABORATORY SERVICES RDW-SD 38.8 <50.4 fl [facility] LABORATORY SERVICES PLT 193 141 - 377 [facility] K/[facility] LABORATORY SERVICES MPV 11.8 9.5 - 12.7 fl [facility] LABORATORY SERVICES Neutrophils 75.5 % [facility] LABORATORY SERVICES Lymphocytes 17.4 % [facility] LABORATORY SERVICES Monocytes 5.8 % [facility] LABORATORY SERVICES Eosinophils 1.0 % [facility] LABORATORY SERVICES Basophils 0.3 % [facility] LABORATORY SERVICES ABS Neutrophils 7.31 2.20 - 8.85 [facility] K/cm LABORATORY SERVICES ABS Lymphs 1.69 1.09 - 3.30 [facility] K/[facility] LABORATORY SERVICES ABS Monocytes 0.56 0.1 - 0.8 [facility] K/[facility] LABORATORY SERVICES ABS Eosinophils 0.10 0.03 - 0.61 [facility] K/[facility] LABORATORY SERVICES ABS Basophils 0.03 0.01 - 0.11 [facility] K/[facility] LABORATORY SERVICES Type of Diff: AutomatedComment: [facility] Performed at [facility], SERVICES [place], [place] Specimen Blood specimen (specimen) - Blood Performing Organization Address City/State/ZIP Code Phon e Number [facility] LABORATORY [address] [place] [address] SERVICES RAPID STREP (12/04/2018 9:50 EDT) Rapid Strep A NegComment: [facility] Screen Performed at [facility], [place], [place] Specimen Other (qualifier value) - Other Performing Organization Address City/[facility]/ZIP [facility] Phon e Number [facility]ORY [address] [place] [address] SERVICES PHARYNGITIS CULTURE (12/04/2018 9:50 EDT) Pathologist Sig nature Result NO GROUP A BETA [facility] STREPT[facility] ISOLATED LABORATORY SERVICES Specimen Other (qualifier value) - Throat Performing Organization Address City/State/ZIP Code Phon e Number [facility]ORY [address] [place] [address] SERVICES documented in this encounter Visit Diagnoses Diagnosis Sore throat - Primary Acute pharyngitis documented in this encounter Care Teams Instrument Inspector Relationship Specialty Start Date End Date Michelle Singer, RESIDENTIAL COLLECTIONS PCP - General 12/03/18 07/01/19 documented as of this encounter
--- OUTSIDE RECORDS SUMMARY | 2021-10-28 15:08 | XMS_ITS | Encounter Summary ---
:1990 Author Organization [facility] Address [address] [place] [id number] Care Team Providers Name Role Phone Michelle Singer DIRECTOR SOCIAL SERVICE Primary Care Provider Reason for Visit Reason Onset Date Comments Migraine 05/14/2019 Encounter Details Date Type Department Care Team Description 05/14/2019 Telephone [facility] Family Michelle Singer, DIRECTOR SOCIAL SERVICE Migraine [address] [phone] (Wo rk) Social History Tobacco Use Types [...] Telephone Encounter - Cristina Garcia RN - 05/15/2019 0937 EST Spoke with pt. She reports she was seen at [facility] and was given imitrex. Feeling better today. elephone Encounter - Cristina Garcia RN - 05/15/2019 0857 EST Left message to call back (can speak with any available nurse) elephone Encounter - Kassandra San - 05/14/2019 1733 EST Reason for Call: Migraine Summary/Symptoms: Patient is calling, she has had a migraine since 10 and 11 this morning. She has taken 6 Excerdrin, and she says it is not helping. Patient was told to call the office if she had another one that lasted awhile, and she could go intothe office to get a shot. Patient plans to go to walk in for a shot. Onset and Duration? n/a Appointment Offered? No Kassandra San 05/14/2019 17:33 documented in this encounter Plan of Treatment Not on filedocumented as of this encounter Visit Diagnoses Not on filedocumented in this encounter Care Teams Blade Balancer Relationship Specialty Start Date End Date Michelle Singer, NIRANJAN PCP - General 12/03/18 07/01/19 documented as of this encounter
--- OUTSIDE RECORDS SUMMARY | 2021-10-28 15:08 | XMS_ITS | Encounter Summary ---
:1990 Author Organization [facility] Address [address] [place] [address] Care Team Providers Name Role Phone Kristen Fontaine MD Primary Care Provider None, Provider Primary Care Provider Unavailable Gallo Small PLASTIC PRINTER Primary Care Provider Michelle Singer PLASTIC PRINTER Primary Care Provider Gallo Small PLASTIC PRINTER Primary Care Provider Puneet Borrego RPA Primary Care Provider [phone] Encounter Details Date Type Department Care Team Description 08/24/2018 Historical Results [facility] Kelsey Cha Only [facility] MD Regino Radiology Results [address] [facility] [address] [place] [address] [phone] Social History Tobacco Use Types Packs/Day Years [...] Procedure Name Priority Date/Time Associated Comments Diagnosis XR CHEST 2 VIEWS 08/24/2018 23:49 Results for this EDT procedure are i n the results section. BASIC METABOLIC Routine 08/24/2018 20:10 Results for this PANEL,RANDOM - [facility] EDT procedure are in the results section. LYME AB Routine 08/24/2018 20:10 Results for this EDT procedure are i n the results section. TROPONIN I Routine 08/24/2018 20:10 Results for this EDT procedure are i n the results section. SED RATE Routine 08/24/2018 20:10 Results for this EDT procedure are i n the results section. D-DIMER Routine 08/24/2018 20:10 Results for this EDT procedure are i n the results section. COMPLETE BLOOD COUNT Routine 08/24/2018 20:10 Res ults for this AND DIFFERENTIAL EDT procedure a re in the results section. C REACTIVE PROTEIN Routine 08/24/2018 20:10 Resul ts for this EDT procedure are i n the results section. HEPATIC FUNCTION Routine 08/24/2018 20:10 Results for this PANEL (ALB,ALK EDT procedure are in PHOS,ALT,AST,DBIL,TOT the re sults JOSÉ MIGUEL,TOT PROT) section. documented in this encounter Results XR CHEST 2 VIEWS (08/24/2018 23:49 EDT) Specimen Narrative RADIOLOGY - 2018 23:49 EDT [facility]: [address] [id number] Diagnostic Imaging Report Signed Patient Name:RENETTA BRADLEY ? Date of :1990 ? MR Number:[id number] Age:28 ?Sex:F Category: CR ? Date of Exam:08/24/18 Procedure: CR: Chest; Frontal/LAT views ? Ordering Physician: Maria De Jesus Cha MD CC: Provider, Optional Maria De Jesus Cha MD EXAM: XR Chest, 2 Views EXAM DATE/TIME: 08/24/2018 11:49 PM CLINICAL HISTORY: 28 years old, female; Other: [facility] TECHNIQUE: Imaging protocol: XR of the chest, 2 vie ws. COMPARISON: No relevant prior studies available. FINDINGS: Lungs: Minimal peribronchial wall thicke amanda, likely infectious or inflammatory in etiology. No pulmonary c onsolidation. Pleural space: Unremarkable. No pleural effusion. No pneumothorax. Heart/Mediastinum: Unremarkable. No card iomegaly. Bones/joints: Unremarkable. IMPRESSION: Minimal peribronchial wall thickening, l ikely infectious or inflammatory in etiology. No pulmonary consolidation. Report signed by: Mandie Gregg On ??00:56:56 Dictated by: Mandie Gregg DO ? D/ 2349 Transcribed by: ROBBIE ? D/T: E-Signed by: Mandie Gregg DO ? D/ 0056 Procedure Note [facility] Gregg MD - [facility] [place] [address] Diagnostic Imaging Report Signed Patient Name:RENETTA BRADLEY er:[id number] Date of :1990 MR Number:[id number] Age:28 Sex:F Category: CR Date of Exam:08/24/18 Procedure: CR: Chest; Frontal/LAT views Ordering Physician: Maria De Jesus Cha MD CC: Provider, Optional Maria De Jesus Cha MD EXAM: XR Chest, 2 Views EXAM DATE/TIME: 08/24/2018 11:49 PM CLINICAL HISTORY: 28 years old, female; Other: [place] TECHNIQUE: Imaging protocol: XR of the chest, 2 vie ws. COMPARISON: No relevant prior studies available. FINDINGS: Lungs: Minimal peribronchial wall thicke amanda, likely infectious or inflammatory in etiology. No pulmonary c onsolidation. Pleural space: Unremarkable. No pleural effusion. No pneumothorax. Heart/Mediastinum: Unremarkable. No card iomegaly. Bones/joints: Unremarkable. IMPRESSION: Minimal peribronchial wall thickening, l ikely infectious or inflammatory in etiology. No pulmonary consolidation. Report signed by: Mandie Gregg On 00:56:56 Dictated by: Mandie Gregg DO D/T: 2349 Transcribed by: ROBBIE D/T: E-Signed by: Mandie Gregg DO D/T: 0056 Performing Organization Address City/[facility]/ZIP Code Phon e Number RADIOLOGY LYME AB (08/24/2018 20:10 EDT) LYME DISEASE IGM Negative Negative [facility] ANTIBODY - [facility] Comment: CENTER LAB No detectable anti-B. burgdorferi IgM antibodies detected. It is suggested that patients with clinical history an d/or symptoms of Lyme Disease, but with negative test resul ts, should have a second specimen collected in 4-6 weeks. LYME DISEASE IGG Negative Negative [facility] ANTIBODY - [facility] Comment: CENTER LAB No detectable anti-B. burgdorferi IgG antibodies detected. It is suggested that patients with clinical history an d/or symptoms of Lyme Disease, but with negative test resul ts, should have a second specimen collected in 4-6 weeks. Specimen Performing Organization Address [facility]/ZIP Code Phon e Number LAB [address] [place] [address] LAB D-DIMER (08/24/2018 20:10 EDT) Pathologist Sig nature D-Dimer 261 <500 [facility] Comment: CENTER LAB Interpretive Information: D-DIMER detects cross-linked fibrin derivatives. Prese nce of elevated levels of D-DIMER should be interpreted with other clinical information in forming a diagnosis. This test should not be used for patients on anti-coagulant ther apy. Cutoff for rule out of PE and DVT is <500 ng/mlFEU Specimen Performing Organization Address City/[facility]/ZIP Code Phon e Number LAB [address] [place] [address] LAB SED. RATE:WESTERGREN (08/24/2018 20:10 EDT) Pathologist Sig nature ESR-SED RATE - [facility] 2 0 - 20 LAB Specimen Performing Organization Address City/[facility]/ZIP Code Phon e Number LAB [address] [place] [address] LAB (ABNORMAL) COMPLETE BLOOD COUNT AND DIFFERENTIAL (08/24/2018 20:10 EDT) Pathologist Sig nature WBC 14.0 (H) 4.0 - 10.5 LAB RBC 4.53 4.20 - 5.40 LAB Hemoglobin 14.9 12.5 - 16.0 LAB HCT 41.9 37.0 - 47.0 LAB MCV 92.5 78 - 100 LAB MCH 32.9 (H) 27 - 31 LAB MCHC 35.6 32 - 36 LAB RDW-CV - PMC 12.7 11.5 - 14.0 LAB PLATELET COUNT - [facility] 190 150 - 450 LAB NEUTROPHILS % (AUTO) - 62.9 42.0 - 75.0 [facility] LAB LYMPHOCYTES % (AUTO) - 28.0 16.0 - 52.0 [facility] LAB MONOCYTES % (AUTO) - 6.2 1.0 - 11.0 [facility] LAB EOSINOPHILS % (AUTO) - 1.9 0.0 - 7.0 [facility] LAB BASOPHILS % (AUTO) - 0.4 0.0 - 4.0 [facility] LAB NUCLEATED RBC % (AUTO) 0.0 <1 [facility] LAB NEUTROPHILS # (AUTO) - 8.8 (H) 1.5 - 6.6 [facility] LAB LYMPHOCYTES # (AUTO) - 3.9 (H) 1.0 - 3.5 [facility] LAB MONOCYTES # (AUTO) - 0.9 <1.0 [facility] LAB EOSINOPHILS # (AUTO) - 0.3 <0.7 [facility] LAB BASOPHILS # (AUTO) - 0.1 <0.1 [facility] LAB NUCLEATED RBC # (AUTO) 0.00 <1 [facility] LAB Specimen Performing Organization Address City/[facility]/ZIP Code Phon e Number LAB [address] [place] [address] LAB C REACTIVE PROTEIN (08/24/2018 20:10 EDT) Pathologist Sig nature C-Reactive Protein <0.9 </= 0.9 LAB Specimen Performing Organization Address [facility] Phon e Number LAB [address] [place] [address] LAB TROPONIN I (08/24/2018 20:10 EDT) Troponin I (ng/mL) <0.05 <0.10 [facility] Comment: CENTER LAB REFERENCE RANGE: Negative: ? <0.10 ng/mL Indeterminate: 0.10-0.80 ng/mL Positive: ? >0.80 ng/mL ........................................... The results of this assay can be falsely decreased due to the consumption of Biotin. Specimen Performing Organization Address [facility] Phon e Number LAB [address] [place] [address] LAB BASIC METABOLIC PANEL,RANDOM - PMC (08/24/2018 20:10 EDT) Pathologist [facility] Sodium 140 136 - 145 LAB Potassium 3.7 3.5 - 5.1 LAB Chloride 103 96 - 107 LAB CO2 Total 26.0 21 - 32 LAB Anion Gap 11.0 LAB BUN 10 7 - 25 LAB Creatinine 0.72 0.55 - 1.02 LAB Estimated GFR >60 >60 [facility] Comment: CENTER LAB EGFR UNITS: mL/min/1.73 m 2 CKD-EPI Equation used to calculate. Glucose 89 70 - 180 LAB Calcium 8.6 8.5 - 10.5 LAB Specimen Performing Organization Address [facility] Phon e Number LAB [address] [place] [address] LAB HEPATIC FUNCTION PANEL (ALB,ALK PHOS,ALT,AST,DBIL,TOT JOSÉ MIGUEL,TOT PROT) (08/24/2018 20:10 EDT) Pathologist Sig nature BILIRUBIN - PMC 0.30 0.00 - 1.00 LAB DIRECT BILIRUBIN - PMC 0.10 0.00 - 0.30 [facility] LAB INDIRECT BILIRUBIN - PMC 0.20 0.00 - 0.80 [facility] ENTER LAB AST 19 15 - 37 LAB ALT 28 12 - 78 LAB Alkaline Phosphatase 82 46 - 116 [facility] Total Protein 6.9 6.4 - 8.2 LAB Albumin 3.8 3.4 - 5.0 LAB GLOBULIN - PMC 3.1 LAB ALBUMIN/GLOBULIN RATIO - 1.2 [facility] ENTER PMC LAB Specimen Performing Organization Address City/State/ZIP Code Phon e Number LAB [address] [place] [address] LAB documented in this encounter Visit Diagnoses Not on filedocumented in this encounter Additional Health Concerns Infection Onset Date Last Indicated Resolved Time R/O COVID-19 10/30/2019 10/30/2019 10/30/2019 15:36 EDT documented as of this encounter Care Teams Staffing Manager Relationship Specialty Start Date End Date Kristen Fontaine MD PCP - General 02/08/18 11/21/18 None, Provider PCP - General 11/22/18 11/24/18 Gallo Small NP PCP - General 11/25/18 12/02/18 Michelle Singer NP PCP - General 12/03/18 07/01/19 Gallo Small NP PCP - General Family Medicine - Primary 07/02/19 07/11/21 Care Puneet Borrego, SANDY PCP - General Family Medicine - Primary 07/12/[address] [place] [id number] documented as of this encounter
--- OUTSIDE RECORDS SUMMARY | 2021-10-28 15:08 | XMS_ITS | Encounter Summary ---
:1990 Author Organization [facility] Address [address] [place] [address] Care Team Providers Name Role Phone Michelle Singer BUCKLE WIRE INSERTER Primary Care Provider Gallo Small BUCKLE WIRE INSERTER Primary Care Provider Puneet Borrego RPA Primary Care Provider [phone] Encounter Details Date Type Department Care Team Description 06/05/2019 Lab Requisition [facility] Unknown, Provider, Pathology & Laboratory [facility] [address] [facility] [place] [address] Social History Tobacco Use Types Packs/Day Years [...] Name Priority Date/Time Associated Diagnosis Comme nts BACTERIAL CULTURE, Routine 06/04/2019 18:39 Resul ts for this URINE EST procedure are i n the results section. documented in this encounter Results (ABNORMAL) BACTERIAL CULTURE, URINE (06/04/2019 18:39 EST) Organism ID Greater than 100,000 CFU/ml Escherichia coli (A) [facility] Comment: LABORATORY SERVICES Cefazolin susceptibility res ults can be used to predict susceptibility results for the following oral cephalosporins when used for therapy of uncomplicated UTIs due to E.coli, K.pneumoniae, and P.mirabi lis: cefaclor, cefdinir, cefpodoxime, cefprozil, cefuroxime, cephalexin, carmen carbef. Cefdinir, cefpodoxime, and cefuroxime may be tested individually because some isolates may be susceptibile to these agents while testing resistance to cefazolin. Plea se note that only cefpodoxime and cephalexin are on the [facility] inpatient formulary. Specimen Urine - Urine, Clean Catch Organism Antibiotic Method Susceptibility Escherichia coli Ampicillin VITEK SUSCEPTIBILITY <=2 ug/mL: Susceptible Escherichia coli Cefazolin VITEK SUSCEPTIBILITY <=4 ug/mL: Susceptible Escherichia coli Ceftriaxone VITEK SUSCEPTIBILITY <=1 ug/mL: Susceptible Escherichia coli Ciprofloxacin VITEK SUSCEPTIBILITY <=0.25 ug/ mL: Susceptible Escherichia coli Ertapenem VITEK SUSCEPTIBILITY <=0.5 ug/m L: Susceptible Escherichia coli Meropenem VITEK SUSCEPTIBILITY <=0.25 ug/ mL: Susceptible Escherichia coli Nitrofurantoin VITEK SUSCEPTIBILITY <=16 ug/mL : Susceptible Escherichia coli Piperacillin Tazobactam VITEK SUSCEPTIBILITY <= 4 ug/mL: Susceptible Escherichia coli Trimethoprim-Sulfamethox VITEK SUSCEPTIBILITY < =20 ug/mL: Susceptible azole Performing Organization Address City/State/ZIP Code Phon e Number [facility] [address] [place] [address] SERVICES documented in this encounter Visit Diagnoses Not on filedocumented in this encounter Additional Health Concerns Infection Onset Date Last Indicated Resolved Time R/O COVID-19 10/30/2019 10/30/2019 10/30/2019 15:36 EDT documented as of this encounter Care Teams Research Technologist Relationship Specialty Start Date End Date Michelle Singer, BUCKLE WIRE INSERTER PCP - General 12/03/18 07/01/19 Gallo Small BUCKLE WIRE INSERTER PCP - General Family Medicine - Primary 07/02/19 07/11/21 Care Punete Borrego, SANDY PCP - General Family Medicine - Primary 07/12/[address] [place] [address] [id number] documented as of this encounter
--- OUTSIDE RECORDS SUMMARY | 2021-10-28 15:08 | XMS_ITS | Encounter Summary ---
:1990 Author Organization [facility] Address [address] [place] [address] Care Team Providers Name Role Phone Gallo Small NP Primary Care Provider Encounter Details Date Type Department Care Team Description 07/02/2019 Travel Social History Tobacco Use Types Packs/Day [...] on filedocumented in this encounter Care Teams Configuration Engineer Relationship Specialty Start Date End Date Gallo Small NP PCP - General Family Medicine - Primary 07/02/19 07/11/21 Care documented as of this encounter
--- OUTSIDE RECORDS SUMMARY | 2021-10-28 15:08 | XMS_ITS | Encounter Summary ---
:1990 Author Organization [facility] Address [address] [place] [address] Care Team Providers Name Role Phone Michelle Singer NP Primary Care Provider Reason for Visit Reason Comments Other establish new care Encounter Details Date Type Department Care Team Description 03/28/2019 Office Visit [facility] Gallo Small er to establish care (Primary Dx); Family Medicine - J, MIXER AND SCALER Needs flu shot; [address] Gastroesophageal reflux disease without esophagitis; [facility] Irritable bowel syndrome wit h constipation; [place], [place] Anxiety; [phone] Depression, unspecified depression type; [phone] Current every d ay smoker; (Work) Herpes simplex type 2 infection Social History Tobacco Use Types Packs/Day Years [...] Sign Reading Time Taken Comments Blood Pressure 112/72 03/28/2019 1011 EST Pulse 76 03/28/2019 1011 EST Temperature 37 ??C (98.6 ??F) 03/28/2019 1011 EST Respiratory Rate 16 03/28/2019 1011 EST Oxygen Saturation - - Inhaled Oxygen Concentration - - Weight 73.9 kg (163 lb) 03/28/2019 1011 EST Height 164.5 cm (5' 4.76) 03/28/2019 1011 EST Body Mass Index 27.32 03/28/2019 1011 EST documented in this encounter Functional Status [...] making decisions? documented as of this encounter Progress Notes Leela Schwarz LPN - 03/28/2019 1000 EST Flu vaccine administered as ordered per Gallo Small NP. See immunization record for details. Patient advised to wait 10 minutes after administration for observation of possible adverse reaction. LEELA SCHWARZ LPN Gallo Foote APRN - 03/28/2019 1000 EST Acute Visit Note Patient ID: Renetta Bradley is a 29 y.o. female Date of Service: 03/31/2019 Reason for Visit: Other (establish new care) Subjective: Renetta Bradley is a 29 y.o. female who presents today to establish care. She hasn't been seen in aregular capacity for many years. 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 Nexplanon for contraceptive. Seen at for tonsil stones. These are recurrent and do cause her some sore throat symptoms at times. Currently smoking--wants to quit. Took chantix previously and did well for about 9 months. She got depressed while on chantix and increased prozac during that time. Some seizure history. Wants to quit again, but not quite ready. custodial zofran use and wondering about EKG. Has IBS-C (stool softeners) and GERD (omeprazole). Some depression and anxiety at baseline. Has used SSRI in the past (most recently prozac). Uses atarax rarely. Has used CBD in past and feels it helped substantially, but is expensive to procure. 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 Review of Systems Constitutional: Negative for chills and fever. HENT: Positive for sore throat. Negative for sinus pain. Respiratory: Negative for cough and shortness of breath. Cardiovascular: Negative for chest pain and palpitations. Gastrointestinal: Positive for constipation and nausea. Negative for blood in stool and diarrhea. Skin: Negative for itching and rash. Neurological: Negative for dizziness and headaches. Psychiatric/Behavioral: Positive for depression. The patient is nervous/anxious. History: Social, family, and personal medical history reviewed, documented, and updated as needed inthe medical record 03/31/19 Medications: Reviewed and documented in the medical record 03/31/19 Objective: VS: Blood pressure 112/72, pulse 76, temperature 37 ??C (98.6 ??F), temperature source Tympanic, resp. rate 16, height 164.5 cm (64.76), weight 73.9 kg (163 lb). Body mass index is 27.32 kg/m??. Physical Exam Constitutional: She is oriented to person, place, and time. She appears well- developed and well-nourished. No distress. HENT: Head: Normocephalic and atraumatic. Eyes: Conjunctivae are normal. Neck: Normal range of motion. Pulmonary/Chest: Effort normal. Musculoskeletal: Normal range of motion. Neurological: She is alert and oriented to person, place, and time. Skin: Skin is warm and dry. Psychiatric: She has a normal mood and affect. Her behavior is normal. Nursing note and vitals reviewed. Assessment/Plan: Renetta was seen today for other. Diagnoses and all orders for this visit: Needs flu shot - INFLUENZA VACCINE QUAD (FLULAVAL/FLUARIX/FLUZONE) PF 0.5 ML IM (6 MOS+) Gastroesophageal reflux disease without esophagitis - H. PYLORI ANTIGEN; Future - EKG 12-LEAD Other orders - ascorbic acid (VITAMIN C WITH LISSETH HIPS ORAL); Take by mouth. - TURMERIC ORAL; Take by mouth. - docusate sodium (STOOL SOFTENER) 100 mg capsule; Take 100 mg by mouth 2 times daily. - vitamin E acetate (VITAMIN E ORAL); Take by mouth daily. Will do EKG today (NORMAL). Also check for h.Pylori. She will explore other options for smoking cessation and discuss at next visit--she feels chantix worked well, however. Feels her anxiety and depression are manageable at this point. She doesn't need any refills today. Working on securing insurancecoverage. Update flu shot. Reviewed weekend availability and after hours coverage. Patient is in agreement with the plan and nobarriers to comprehension were identified. Gallo Small APRN 03/31/2019 8:45 Return for annual wellness visit within next 6 months. documented in this encounter Plan of Treatment Not on filedocumented as of this encounter Procedures Procedure Name Priority Date/Time Associated Diagnosis Comme nts ECG REPORT - 05/15/2019 17:17 SCANNED EST EKG 12-LEAD Routine 03/28/2019 11:13 Gastroesophageal reflux Results for this EST disease without procedure ar e in esophagitis the results section. documented in this encounter Results H. PYLORI ANTIGEN (04/24/2019 7:30 EST) Pathologist Sig nature H. Pylori Negative Negative [facility] Specimen Feces - Feces Narrative [facility] - 04/29/2019 14:35 EST Results were obtained with the Premier P latinum HpSA Plus KARINA. Performing Organization Address City/State/ZIP Code Phon e Number [facility] [address] [place] [address] SERVICES EKG 12-LEAD (03/28/2019 11:13 EST) Specimen Narrative [facility] - 05/15/2019 17:1 3 EST ? PC Site ? Test Date: ?2019-03-28 Pat Name: ? RENETTA LING ? Department: ?? [facility] ? Room: ? Gender: ? Female ? Development Disability Specialist: ?? LOU M : ?1990 ? Requested By: GALLO SMALL SETTLEMENT WORKER Order Number: [id number] ? Reading MD: ?? GALLO ASTRID SETTLEMENT WORKER ? Measurements Intervals ?[place] ? Rate: ? 76 ? P: ?29 [place]: ? 143 ?QRS: ?64 QRSD: ? 89 ? T: ?32 QT: ? 377 ? QTc: ?425 ? Interpretive Statements SINUS RHYTHM Automated Interpretation. ??Provider Int erpretation to follow. Compared to ECG 05/13/2011 22:32:15 Sinus bradycardia no longer present I reviewed the tracing and have either a greed or edited the findings in this report. Electronically Signed On 17:13:58 EST by GALLO SMALL APRN. Procedure Note Gallo Small APRN - 05/15/2019 PC Site Test Date: 2019-03-28 Pat Name: RENETTA JUANCHO Department: [facility] Room: Gender: Female Development Disability Specialist: LOU Sabillon : 1990 Requested By: GALLO DAVENPORT APRN Order Number: [id number] Reading MD: Stephany SMALL APRN Measurements Intervals [place] Rate: 76 P: 29 [place]: 143 QRS: 64 QRSD: 89 T: 32 QT: 377 QTc: 425 Interpretive Statements SINUS RHYTHM Automated Interpretation. Provider Inter pretation to follow. Compared to ECG 05/13/2011 22:32:15 Sinus bradycardia no longer present I reviewed the tracing and have either a greed or edited the findings in this report. Electronically Signed On 17:13:58 EST by GALLO SMALL APRN. Performing Organization Address City/State/ZIP Code Phon e Number [facility] documented in this encounter Visit Diagnoses Diagnosis Encounter to establish care - Primary Other reasons for seeking consultation Needs flu shot Need for prophylactic vaccination and in oculation against influenza Gastroesophageal reflux disease without esophagitis Esophageal reflux Irritable bowel syndrome with constipati on Irritable bowel syndrome Anxiety Anxiety state, unspecified Depression, unspecified depression type Current every day smoker Tobacco use disorder Herpes simplex type 2 infection Herpes simplex without mention of compli cation documented in this encounter Discontinued Medications Medication Sig Discontinue Reason Start Date End Date FLUoxetine (PROZAC) 20 mg TAKE 1 CAP BY MOUTH Therapy completed 03/28/2019 capsuleIndications: DAILY Anxiety documented as of this encounter Historical Medications This list may reflect changes made after this encounter. Medication Sig Dispensed Refills Start Date End Date docusate sodium (STOOL Take 100 mg by mouth 0 SOFTENER) 100 mg capsule 2 times daily. ascorbic acid (VITAMIN C Take by mouth. 0 WITH LISSETH HIPS ORAL) vitamin E acetate Take by mouth daily. 0 10/30/2019 (VITAMIN E ORAL) TURMERIC ORAL Take by mouth. 0 020 added in this encounter Orders Procedures Count Last Ordered Date First Ordered Date ECG REPORT - SCANNED 1 05/16/2019 Immunization/Injection Count Last Ordered Date First O rdered Date INFLUENZA VACCINE QUAD 1 03/28/2019 (FLULAVAL/FLUARIX/FLUZONE) PF 0.5 ML IM (6 MOS+) documented in this encounter Care Teams Home Advisor Relationship Specialty Start Date End Date Michelle Singer NP PCP - General 12/03/18 07/01/19 documented as of this encounter
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
--- OUTSIDE RECORDS SUMMARY | 2021-10-28 15:09 | XMS_ITS | Encounter Summary ---
:1990 Author Organization [facility] Address [address] [place] [address] Care Team Providers Name Role Phone Ralph Bowman MD Primary Care Provider Unavailable Encounter Details Date Type Department Care Team Description 06/09/2015 Phlebotomy Only [facility] Molecular Pathologist, Damon stanley pain in - [facility] female (Primary Dx) [address] [place] [address] Social History Tobacco Use Types Packs/Day Years Used Date Former Smoker Cigarettes 0.25 7 Quit: 09/12/19 14 Smokeless Tobacco: Never Used Alcohol Use Standard Drinks/Week Comments No 0 (1 standard drink = 0.6 oz [...] documented as of this encounter Functional Status Cognitive Status Response Date of Assessment Because of a physical, mental, or emotional condition, do Ye s 05/14/2011 you have serious difficulty concentrating, remembering, or making decisions? (5 years old or older) documented as of this encounter Plan of Treatment Not on filedocumented as of this encounter Procedures Procedure Name Priority Date/Time Associated Diagnosis Comme nts COMPLETE BLOOD Routine 06/09/2015 10:48 Pelvic pain in Results for this COUNT EST female procedure are i n the results section. C REACTIVE PROTEIN Routine 06/09/2015 10:48 Pelvic pain in Res ults for this EST female procedure are i n the results section. documented in this encounter Results C REACTIVE PROTEIN (06/09/2015 10:48 EST) C Reactive Protein <7.0 <10.0 mg/L [facility] Comment: LABORATORY SERVICES Note units change to mg/L. Values will be 10 fold higher than with previous units of mg/dl. Specimen Blood specimen (specimen) - Blood Performing Organization Address City/[facility]/ZIP Code Phon e Number [facility] [address] [place] [address] SERVICES HEMAGRAM (06/09/2015 10:48 EST) Pathologist Sig nature WBC 6.96 4.0 - 12.4 K/cmm [facility] SERVICES RBC 4.58 3.86 - 5.04 M/cmm [facility] SERVICES Hemoglobin 14.5 11.6 - 15.2 gm/dl [facility] SERVICES HCT 41.1 34.9 - 44.4 % [facility] SERVICES MCV 90 81 - 98 fl [facility] SERVICES MCH 31.7 26.7 - 33.3 pg [facility] SERVICES MCHC 35.3 32.1 - 35.9 gm/dl [facility] SERVICES RDW-CV 12.2 11.7 - 14.6 % [facility] SERVICES RDW-SD 40.1 37.6 - 50.3 fl [facility] SERVICES PLT 216 141 - 377 K/cmm [facility] SERVICES MPV 11.8 9.5 - 12.7 fl [facility] SERVICES Specimen Blood specimen (specimen) - Blood Performing Organization Address City/[facility] Phon e Number [facility] [address] [place] [address] SERVICES documented in this encounter Visit Diagnoses Diagnosis Pelvic pain in female - Primary Unspecified symptom associated with fema le genital organs documented in this encounter Care Teams Sheet Metal Mechanic Relationship Specialty Start Date End Date Ralph Bowman MD PCP - General 11/27/14 02/07/18 documented as of this encounter
--- OUTSIDE RECORDS SUMMARY | 2021-10-28 15:09 | XMS_ITS | Encounter Summary ---
:1990 Author Organization [facility] Address [address] [place] [address] Care Team Providers Name Role Phone Ralph Bowman MD Primary Care Provider Unavailable Encounter Details Date Type Department Care Team Description 10/16/2017 Phlebotomy Only [facility] Textile Conservator, Mireya garza bleeding; - [facility] Screen for STD (sexually tra nsmitted disease) [address] [place] [address] Social History Tobacco Use Types Packs/Day Years [...] Name Priority Date/Time Associated Diagnosis Comme nts THYROID CASCADE Routine 10/16/2017 10:06 Irregular bleeding Re sults for this EDT procedure are i n the results section. SYPHILIS SEROLOGY Routine 10/16/2017 10:06 Screen for STD Resu lts for this EDT (sexually procedure are i n transmitted disease) the res ults section. HEPATITIS C AB W Routine 10/16/2017 10:06 Screen for STD Resul ts for this REFLEX TO HCV RNA BY EDT (sexually procedu re are in PCR transmitted disease) the res ults section. HIV 1/2 ANTIGEN AND Routine 10/16/2017 10:06 Screen for STD Re sults for this ANTIBODY, 4TH EDT (sexually procedure are in GENERATION transmitted disease) the res ults section. documented in this encounter Results HEPATITIS C AB W REFLEX TO HCV RNA BY PCR (10/16/2017 10:06 EDT) Hep C Ab w Rfx PCR Negative Negative [facility] Comment: LABORATORY The results of this assay can be falsely SERVICES lowered due to the consumption of Biotin. Specimen Blood specimen (specimen) - Blood Performing Organization Address [facility] [address]/[facility] Phon e Number [facility] [address] [place] [address] SERVICES SYPHILIS SEROLOGY (10/16/2017 10:06 EDT) Syphilis Serology NegativeComment: [facility] Reference Range: LABORATORY SERVICES Negative Specimen Blood specimen (specimen) - Blood Performing Organization Address [facility] [address]/ZIP [facility] Phon e Number [facility] [address] [place] [address] SERVICES HIV 1/2 ANTIGEN AND ANTIBODY, 4TH GENERATION (10/16/2017 10:06 EDT) HIV 1/2 Antibody Negative Negative [facility] Comment: LABORATORY SERVICES Fourth generation assay performed on the Siemens HiperScanaur. If acute HIV-1 infection is suspected in a high risk patient, submit plasma specimen for HIV-1 RNA quantification test. The results of this assay can be falsely lowered due to the consumption of Biotin. Specimen Blood specimen (specimen) - Blood Performing Organization Address [facility] [address]/[facility] Phon e Number [facility] [address] [place] [address] SERVICES THYROID CASCADE (10/16/2017 10:06 EDT) TSH 1.57 0.47 - 4.68 [facility] Comment: uIU/ml LABORATORY SERVICES TSH cascade is not recommended for patients in which pituitary or hypothalamic disorders are suspected. The results of this assay can be falsely lowered due to the consumption of Biotin. Specimen Blood specimen (specimen) - Blood Performing Organization Address [facility] [address]/[facility] Phon e Number [facility] [address] [place] [address] SERVICES documented in this encounter Visit Diagnoses Diagnosis Irregular bleeding Irregular menstrual cycle Screen for STD (sexually transmitted dis ease) Screening examination for venereal disea se documented in this encounter Care Teams Cloth Shearing Supervisor Relationship Specialty Start Date End Date Ralph Bowman MD PCP - General 11/27/14 02/07/18 documented as of this encounter
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
--- OUTSIDE RECORDS SUMMARY | 2021-10-28 15:09 | XMS_ITS | Encounter Summary ---
:1990 Author Organization [facility] Address [address] [place] [address] Care Team Providers Name Role Phone Ralph Bowman MD Primary Care Provider Unavailable Reason for Visit Reason Comments Procedure nexplanon insert Encounter Details Date Type Department Care Team Description 06/19/2016 Office Visit [facility] Mackenzie Rojas Insert ion of Women's Services - MD Karis Nexplanon (Primary [facility] [address] [facility]) [address] [place], [place] [id number] [place] [address] [facility] [address] [place] [address] (Wo rk) Social History Tobacco Use Types Packs/Day Years Used Date Current Every Day Smoker Cigarettes 13 Hugo t: 05/10/2015 Smokeless Tobacco: Never [...] Sign Reading Time Taken Comments Blood Pressure 118/64 06/19/2016 1400 EDT Pulse - - Temperature - - Respiratory Rate - - Oxygen Saturation - - Inhaled Oxygen Concentration - - Weight 82.6 kg (182 lb) 06/19/2016 1400 EDT Height 162.6 cm (5' 4) 06/19/2016 1400 EDT Body Mass Index 31.24 06/19/2016 1400 EDT documented in this encounter Functional Status Functional Status Response Date of Assessment Because of a physical, mental, or emotional condition, No 11/25/2015 does this person have difficulty doing errands alone such as visiting a doctor's office or shopping? Cognitive Status Response Date of Assessment Because of a physical, mental, or emotional condition, No 11/25/2015 does this person have serious difficulty concentrating, remembering, or making decisions? documented as of this encounter Procedure Notes Mackenzie Rojas MD - 06/19/2016 1345 EDT Procedure: Procedures Procedure Note: Nexplanon Insert LMP unsure, had IUD removed 04/24/2016, unprotected intercourse 2 weeks ago with ulipristal acetate use on 06/07. Understands possibility of early with negative test and need to repeatUPT in 2-3 weeks to ensure negative. Alternatively, could delay placement of Nexplanon until next menses, however patient understands risks and would like to proceed with placement today. Procedure explained and written consent obtained. Has had a Nexplanon previously, knows what to expect. Site identified in left arm, prepped with betadine x3. 2 mL 1% Lidocaine injected below groove between triceps and biceps in left arm. Nexplanon inserted using insertion needle. Device palpated by both physician and patient. Pressure dressing applied. Lot # [id number] Exp date 06/2018 Patient aware of bleeding patterns and what to expect. Will do home UPT in 2-3 weeks to ensure not . Will call if bleeding irregular or bothersome. Mackenzie Rojas MD documented in this encounter Plan of Treatment Not on filedocumented as of this encounter Procedures Procedure Name Priority Date/Time Associated Diagnosis Comme nts POCT Routine 06/19/2016 13:09 Insertion of Results f or this TEST, CLINITEK EDT Nexplanon procedure are in the results section. documented in this encounter Results POCT TEST, CLINITEK (06/19/2016 13:09 EDT) Pathologist Sig nature UPT Result Neg Neg [facility] scudding inspector ID [id number]: [facility] Test performed at LABORATORY SERVICES [facility] Specimen Urine (substance) - Urine Performing Organization Address City/State/[facility] Code Phon e Number [facility] [address] [place] [address] SERVICES documented in this encounter Visit Diagnoses Diagnosis Insertion of Nexplanon - Primary Insertion of implantable subdermal contr aceptive documented in this encounter Discontinued Medications Medication Sig Discontinue Reason Start Date End Date ulipristal 30 mg tablet Take 1 Tab by mouth 06/07/2016 06/19/2016 once for 1 dose. documented as of this encounter Care Teams Hydro Operator Relationship Specialty Start Date End Date Ralph Bowman MD PCP - General 11/27/14 02/07/18 documented as of this encounter
--- OUTSIDE RECORDS SUMMARY | 2021-10-28 15:09 | XMS_ITS | Encounter Summary ---
:1990 Author Organization [facility] Address [address] [place] [address] Care Team Providers Name Role Phone Ralph Bowman MD Primary Care Provider Unavailable Reason for Visit Reason Onset Date Comments Laceration 05/04/2015 Encounter Details Date Type Department Care Team Description 05/04/2015 Telephone [facility] Gray Gao MD [facility] - [address] [address] Social History Tobacco Use Types Packs/Day Years Used Date Current Some Day Smoker Cigarettes 0.25 7 Quit : 09/11/2013 Smokeless Tobacco: Never Used Alcohol Use Standard [...] this encounter Miscellaneous Notes Telephone Encounter - Heide Herr MD - 05/04/2015 1930 EST Patient calling with a laceration on her hand. She cut it on a metal can in the sink. Says it is maybe about the size a quarter. Looks deep to her, flap of skin. Wrapped in a towel, but bled through the towel. Now has bandage on and doesn't seem to be bleeding anymore. Last tetanus 02/2006. Recommended patient may need stitches to help heal. documented in this encounter Plan of Treatment Not on filedocumented as of this encounter Visit Diagnoses Not on filedocumented in this encounter Care Teams Trail Maintenance Worker Relationship Specialty Start Date End Date Ralph Bowman MD PCP - General 11/27/14 02/07/18 documented as of this encounter
--- OUTSIDE RECORDS SUMMARY | 2021-10-28 15:09 | XMS_ITS | Encounter Summary ---
:1990 Author Organization [facility] Address [address] [place] [address] Care Team Providers Name Role Phone Ralph Bowman MD Primary Care Provider Unavailable Reason for Visit Reason Onset Date Comments Coordination Of Care 11/21/2016 Encounter Details Date Type Department Care Team Description 11/21/2016 Telephone [place] Ralph Izaguirre Coordination Of Care Medicine - Dylan Allred MD [address] [place] [id number] Social History Tobacco Use Types Packs/Day [...] this encounter Miscellaneous Notes Telephone Encounter - Damien Morley - 11/21/2016 1338 EDT Care and concern call made. Left message on unidentified voicemail for patient to call our office. ? Renetta was seen at [facility] on 11/15 for tooth abscess/infection and tick bite. Calling to see how Renetta is doing and if she needs a follow up visit in the office. documented in this encounter Plan of Treatment Not on filedocumented as of this encounter Visit Diagnoses Not on filedocumented in this encounter Care Teams Olive Knocker Relationship Specialty Start Date End Date Ralph Bowman MD PCP - General 11/27/14 02/07/18 documented as of this encounter
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
--- OUTSIDE RECORDS SUMMARY | 2021-10-28 15:09 | XMS_ITS | Encounter Summary ---
:1990 Author Organization [facility] Address [address] [place] [address] Care Team Providers Name Role Phone Ralph Bowman MD Primary Care Provider Unavailable Reason for Visit Reason Comments Medical Evaluation Arrives reporting I noticed a lump behind my left ear. Denies pain. denies trauma. Encounter Details Date Type Department Care Team Description 03/25/2017 Emergency [facility] Jimmie Rodriguez, PA-C [address] [facility], [address] [place] [address] Postauricular swelling Emergency Department Emergency, MD Jeff (Primary Dx) - [address] [address] Social History Tobacco Use Types Packs/Day [...] Sign Reading Time Taken Comments Blood Pressure 149/74 03/25/20171939 EST Pulse 99 03/25/20171939 EST Temperature 36.5 ??C (97.7 ??F) 03/25/20171939 EST Respiratory Rate 20 03/25/20171939 EST Oxygen Saturation 100% 03/25/20171939 EST Inhaled Oxygen Concentration - - Weight 68 kg (150 lb) 03/25/20171939 EST Height - - Body Mass Index 25.75 06/19/2016 1400 EDT documented in this encounter [...] as of this encounter Discharge Diagnoses Diagnosis R22.0 Localized swelling, mass and lump, head-R22.0[ICD-10-CM] J45.909 Unspecified asthma, uncomplicate d-J45.909[ICD-10-CM] F17.210 Nicotine dependence, cigarettes, uncomplicated-F17.210[ICD-10-CM] documented in this encounter Discharge Instructions InstructionsJimmie Rodriguez PA - 03/25/2017 20:57 EST This area of swelling may be a lymph node thaough I see no other evidence of infection at this time If it does not resolve in the next several days, please follow up with your primary care physician Return here if there is redness, increasing swelling, pain documented in this encounter Medications at Time of Discharge Medication Sig Dispensed Refills Start Date End Date ibuprofen (MOTRIN) 400 Take 400 mg by mouth 0 mg tablet every 4 hours. albuterol 90 Inhale 1 Puff as 1 Inhaler 0 07/31/20142019 mcg/actuation inhaler directed every 6 hours as needed for Wheezing FLUoxetine (PROZAC) 20 TAKE 1 CAP BY MOUTH 30 Cap 5 01/0703/28/2019 mg capsuleIndications: DAILY Anxiety hydrOXYzine (ATARAX) 25 Take 25 mg by mouth 3 0 07/02/2019 mg tablet times daily. PENICILLIN V POTASSIUM Take by mouth. 0 07/04/2017 ORAL documented as of this encounter Discharge Disposition Disposition Code Departure Means Destination Home or Self Care Walk-out Home documented in this encounter ED Notes Jimmie Rodriguez PA - 03/25/2017 2103 EST DOS: 03/25/2017 Chief Complaint Patient presents with ??? Medical Evaluation Arrives reporting I noticed a lump behind my left ear. Denies pain. denies trauma. HPI The patient is a 27 y.o. female who presents today with Medical Evaluation (Arrives reporting I noticed a lump behind my left ear. Denies pain. denies trauma. ) HPI Comments: 27-year-old female presents with complaints of swelling behind her left ear. Patient states she noted symptoms with the last 24 hours. She denies fever, chills, drainage from her ear or ear pain. She has no other complaints and feels well otherwise. The history is provided by the patient. Medical Evaluation Associated symptoms: no ear pain, no fever and no sore throat Review of Systems Review of Systems Constitutional: Negative for chills, diaphoresis and fever. HENT: Negative for ear discharge, ear pain, sore throat and trouble swallowing. The patient's past medical, family and social history was reviewed and updated as needed. Allergies Allergen Reactions ??? Sulfa (Sulfonamide Antibiotics) Anaphylaxis ??? Bee Pollens Anaphylaxis Vital Signs Vitals Reassessment?: Yes Temp: 36.5 ??C (97.7 ??F) Pulse: 99 Resp: 20 SpO2: 100 % BP: (!) 149/74 Physical Exam Constitutional: She is oriented to person, place, and time. She appears well- developed and well-nourished. No distress. HENT: Head: Atraumatic. Right Ear: Hearing, tympanic membrane, external ear and ear canal normal. No mastoid tenderness. Left Ear: Hearing, tympanic membrane, external ear and ear canal normal. No mastoid tenderness. Mouth/Throat: Oropharynx is clear and moist. No oropharyngeal exudate, posterior oropharyngeal edemaor posterior oropharyngeal erythema. No postauricular erythema or fluctuance Eyes: EOM are normal. Right eye exhibits no discharge. Left eye exhibits no discharge. Neck: Normal range of motion. Neck supple. Normal range of motion present. Cardiovascular: Normal rate, regular rhythm and normal heart sounds. Pulmonary/Chest: Effort normal and breath sounds normal. No respiratory distress. Lymphadenopathy: Head (right side): No posterior auricular adenopathy present. Head (left side): Posterior auricular adenopathy present. She has no cervical adenopathy. She has no axillary adenopathy. Neurological: She is alert and oriented to person, place, and time. She has normal strength. No sensory deficit. Skin: Skin is warm and dry. No rash noted. No erythema. Psychiatric: She has a normal mood and affect. Her behavior is normal. Nursing note and vitals reviewed. RESULTS EKG orders: None Radiology orders: None ED Lab Results Labs Reviewed - No data to display Relevant Data Procedures ED COURSE A medical screening exam was performed. Patient presents with concerns of swelling behind her left ear. Advised possibly lymph node, no other concerning findings. Advised PCP f/u if symptoms persist. ASSESSMENT AND PLAN Final diagnoses: Postauricular swelling ED Current Prescriptions None DISPOSITION: Discharged The patient's pain was managed [...] Condition at departure from the Emergency Department: Good PCP: Ralph Bowman [facility] Number of Diagnoses or Management Options Postauricular swelling: Amount and/or Complexity of Data Reviewed Review and summarize past medical records: yes Sekou Walden was available for supervision. 04/08/2017 14:01 No flowsheet data found. Brandee Kumar RN - 03/25/2017 995 EST Pt d/c ambulatory with a normal gait and in NAD. Pt d/c with friend. Pt provided with instructions. Resp unlabored. Skin warm and dry. Pt AO. documented in this encounter Plan of Treatment Not on filedocumented as of this encounter Visit Diagnoses Diagnosis Postauricular swelling - Primary Swelling, mass, or lump in head and neck documented in this encounter Care Teams County Court Judge Relationship Specialty Start Date End Date Ralph Bowman MD PCP - General 11/27/14 02/07/18 documented as of this encounter
--- OUTSIDE RECORDS SUMMARY | 2021-10-28 15:09 | XMS_ITS | Encounter Summary ---
:1990 Author Organization [facility] Address [address] [place] [address] Care Team Providers Name Role Phone Ralph Bowman MD Primary Care Provider Unavailable Reason for Visit Reason Onset Date Comments Back Pain 04/09/2016 Nausea 04/09/2016 Encounter Details Date Type Department Care Team Description 04/09/2016 Telephone [facility] Merlin Mills MD Back Pain; Nausea [address] [place] [address] [place] [address] [phone] Social History Tobacco Use Types Packs/Day Years [...] this encounter Miscellaneous Notes Telephone Encounter - Merlin Velazco MD - 04/09/2016 0253 EST Renetta reports she has had 3 days of intense nausea with limited PO intake. Has been able to drink water and eat food but notes appetite is restricted. Denies emesis, diarrhea or constipation. Did have one episode of right arm tingling and right low back to abdominal pain earlier this evening. Reports pain was 2-3/10 and felt like a surge of electricity. Notes skin over that area was slightly red and painful to the touch. Pain radiated down right arm as well. REports pain has improved since onsetroughly 45 min prior to call but was concerned that this could be related to her nausea and wanted to know if she should be seen right away. Instructed her to try ice application to sore area of back and see if that helped. If her nausea increased, she became diaphoretic or pain intensified she was instructed to call back vs go to the emergency department tonight. If pain mildly improved or persisteduntsunday she was instructed to follow up in clinic. She expressed understanding of this plan and agreed to call back if symptoms got worse. documented in this encounter Plan of Treatment Not on filedocumented as of this encounter Visit Diagnoses Not on filedocumented in this encounter Care Teams Breakfast And Room Attendant Relationship Specialty Start Date End Date Ralph Bowman MD PCP - General 11/27/14 02/07/18 documented as of this encounter
--- OUTSIDE RECORDS SUMMARY | 2021-10-28 15:09 | XMS_ITS | Encounter Summary ---
:1990 Author Organization [facility] Address [address] [place] [address] Care Team Providers Name Role Phone Ralph Bowman MD Primary Care Provider Unavailable Reason for Visit Reason Onset Date Comments Medication Management 11/15/2015 Encounter Details Date Type Department Care Team Description 11/15/2015 Telephone [facility] Ralph Bowman Medicat ion Management [facility] [address] [place] [address] Social History Tobacco Use Types Packs/Day [...] a physical, mental, or emotional condition, No 09/01/2015 does this person have difficulty doing errands alone such as visiting a doctor's office or shopping? Cognitive Status Response Date of Assessment Because of a physical, mental, or emotional condition, No 09/01/2015 does this person have serious difficulty concentrating, remembering, or making decisions? documented as of this encounter Miscellaneous Notes Telephone Encounter - Karis Love RN - 11/19/2015 1448 EDT Pt will discuss at upcoming appointment elephone Encounter - Paige Barriga - 11/19/2015 1442 EDT Patient is already scheduled on 11/[address] Crystal, does she need to been seen sooner or can thisbe addressed at the same appt? elephone Encounter - Cara Cleveland LPN - 11/16/2015 1106 EDT Left message for patient to contact office. If she is having continued nausea to exceed 8/per month of the zofran she should be re-evaluated here or have another visit with her GI doctor. We have no clear documentation as to why the zofran is being used so frequently if the GERD is better controlled with the PPI as per Dr. Alvarado last notes on 09/01/15 elephone Encounter - Leeann Lopez - 11/15/2015 1653 EDT Patient was prescribed Zofran by Dr. Cornell in August but her insurance only allows 8 pills per 28 days and she is going to need more than that quantity. Please call to discuss. documented in this encounter Plan of Treatment Not on filedocumented as of this encounter Visit Diagnoses Not on filedocumented in this encounter Care Teams Talking Books Library Clerk Relationship Specialty Start Date End Date Ralph Bowman MD PCP - General 11/27/14 02/07/18 documented as of this encounter
--- OUTSIDE RECORDS SUMMARY | 2021-10-28 15:09 | XMS_ITS | Encounter Summary ---
:1990 Author Organization [facility] Address [address] [place] [address] Care Team Providers Name Role Phone Ralph Bowman MD Primary Care Provider Unavailable Reason for Visit Reason Onset Date Comments Follow-up 05/05/2015 05/04/2015 [facility] for a C/o Laceration and a Dx of Laceration of hand,r ight,inital encounter Encounter Details Date Type Department Care Team Description 05/05/2015 Telephone [facility] Julio C, Follow-up (05/04/2015 Family Medicine - STEFANIA Lowe [facility] for a C/o Dylan Laceration and a Dx of [address] [place] [address] hand,right,inital [phone] encounter) Social History Tobacco Use Types Packs/Day Years [...] this encounter Miscellaneous Notes Telephone Encounter - Teresa lE - 05/05/2015 1416 EST Patient returning the nurses call, no need for a follow up. elephone Encounter - Chrissy Bunch LPN - 05/05/2015 0953 EST I called and left a message for patient to return a non urgent call. ( I Called patient to follow up with her from her recent 05/04/2015 [facility] Ed for a C/o Laceration and a Dx of Laceration of hand,right,inital encounterand to see if she needed a follow up with Dr. Bowman or someone on his team). documented in this encounter Plan of Treatment Not on filedocumented as of this encounter Visit Diagnoses Not on filedocumented in this encounter Care Teams School Aide Relationship Specialty Start Date End Date Ralph Bowman MD PCP - General 11/27/14 02/07/18 documented as of this encounter
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
--- OUTSIDE RECORDS SUMMARY | 2021-10-28 15:09 | XMS_ITS | Encounter Summary ---
:1990 Author Organization [facility] Address [address] [place] [address] Care Team Providers Name Role Phone Ralph Bowman MD Primary Care Provider Unavailable Reason for Visit Reason Onset Date Comments Medication Questions 04/22/2015 Encounter Details Date Type Department Care Team Description 04/22/2015 Telephone [facility] Ralph Bowman Medicat ion Questions [facility] [address] [place] [id number] Social History Tobacco Use Types Packs/Day [...] Sig Dispensed Refills Start Date End Date varenicline (CHANTIX Take one 0.5mg 53 Tab 0 04/23/2015 06/02/2015 STARTING MONTH BOX) 0.5 mg tablet once daily x (11)- 1 mg (42) tablet 3 days then take one 0.5mg tablet twice daily x 4 days then take one 1mg tablet twice daily documented in this encounter Miscellaneous Notes Telephone Encounter - Yogesh Quinn MD - 04/23/2015 0950 EST Okay to take chantix with fluoxetine. Chantix can cause GI upset and vivid dreams; sometimes can cause mood lability. I do not know the patient and would not want to adjust her psych meds without discussing in the office. Chantix ordered. elephone Encounter - Karis Love RN - 04/23/2015 0911 EST Call placed to patient Pt reports she would like to try Chantix to quit smoking but was fearful of the side effects. Pt is also taking fluoxetine. Pt wonders if they are ok together Will forward to provider for review elephone Encounter - Pat Pitts - 04/22/2015 9515 EST Reason for Call: Medication Questions Summary/Symptoms: Patient called, was given a script for chantix in the past to quit smoking. She said that she did not take them because of the possible side effects. She mentioned that she is on anxiety medication. She would like to try the chantix again but also would like to double up on her anxiety medication while on it. Please call Onset and Duration? Appointment Offered? No Pat Pitts 04/22/2015 14:58 documented in this encounter Plan of Treatment Not on filedocumented as of this encounter Visit Diagnoses Not on filedocumented in this encounter Care Teams Roll Over Loader Relationship Specialty Start Date End Date Ralph Bowman MD PCP - General 11/27/14 02/07/18 documented as of this encounter
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
--- OUTSIDE RECORDS SUMMARY | 2021-10-28 15:09 | XMS_ITS | Encounter Summary ---
:1990 Author Organization [facility] Address [address] [place] [address] Care Team Providers Name Role Phone Ralph Bowman MD Primary Care Provider Unavailable Reason for Visit Reason Onset Date Comments Vaginal Bleeding 06/22/2016 Encounter Details Date Type Department Care Team Description 06/22/2016 Telephone [facility] Hussein Schafer RN Vaginal Bleeding Services - [facility] [address] [place], [place] [id number] Social History Tobacco Use Types Packs/Day Years [...] this encounter Miscellaneous Notes Telephone Encounter - Yvonne Schafer RN - 06/22/2016 0946 EDT Renetta is calling to report heavy vaginal bleeding with quarter and nickel sized clots. Nexplanon was inserted 06/19, per Dr. Rojas: LMP unsure, had IUD removed 04/24/2016, unprotected intercourse 2 weeks ago with ulipristal acetate use on 06/07. Understands possibility of early with negative test and need to repeat UPT in 2-3 weeks to ensure negative. Renetta reports filling one pad every 2 hours, sharp pelvic cramps 4/10 (more on the right side). She has not taken anything for pain. Denies any lightheaded,dizziness. Advised to take ibuprofen 600 mg every 6 hours (with food) for the next several days to reduce bleeding and pain. Call BROKERAGE MANAGER back if vaginal bleeding increases to soaking through one pad or less per hour, continues to pass large clots, pain is doubling you over, or you become lightheaded/dizzy. Reviewedoriginal plan to check UPT in 2-3 weeks to ensure negative. She is agreeable to this plan and verbalized understanding. documented in this encounter Plan of Treatment Not on filedocumented as of this encounter Visit Diagnoses Not on filedocumented in this encounter Care Teams Corporate Human Resources Manager Relationship Specialty Start Date End Date Ralph Bowman MD PCP - General 11/27/14 02/07/18 documented as of this encounter
--- OUTSIDE RECORDS SUMMARY | 2021-10-28 15:09 | XMS_ITS | Encounter Summary ---
:1990 Author Organization [facility] Address [address] [place] [address] Care Team Providers Name Role Phone Ralph Bowman MD Primary Care Provider Unavailable Reason for Referral Consult (Routine) - Closed Specialty Diagnoses / Referred By Referred To Cont act Procedures Contact Gastroenterology and Diagnoses Nausea [facility] Kami Vogt, [address] [place], [place] [id number] [address] [place] [address] [place], Fax: [phone] [facility] [phone] Referral ID Status Reason Start Date Expiration Date Visits V isits Requested Authorized [id number] Closed Specialty 11/30/2015 1 1 Services Required Question Answer Reason for Request: chronic nausea. Has pmhx of IBS Reason for Visit Reason Comments Nausea Encounter Details Date Type Department Care Team Description 11/30/2015 Office Visit [facility] Viola Friend MD Nausea (Primary Dx) Family Medicine - [address] [place] [address] [place] [address] Social History Tobacco Use Types Packs/Day Years [...] Sign Reading Time Taken Comments Blood Pressure 108/72 11/30/2015 1534 EDT Pulse 64 11/30/2015 1534 EDT Temperature - - Respiratory Rate 16 11/30/2015 1534 EDT Oxygen Saturation - - Inhaled Oxygen Concentration - - Weight 88 kg (194 lb) 11/30/2015 1534 EDT Height 162.6 cm (5' 4) 11/30/2015 1534 EDT Body Mass Index 33.3 11/30/2015 1534 EDT documented in this encounter Functional Status [...] Sig Dispensed Refills Start Date End Date amitriptyline (ELAVIL) 10 Take 1 Tab by 30 Tab 1 016 04/24/2016 mg tabletIndications: mouth at bedtime. Nausea documented in this encounter Progress Notes Kayla Hathaway - 12/10/2015 1628 EDT Addendum 12/10/15 @ 16:28 hours Charge capture for services performed during this appointment have been added to the encounter. POCT Urine Test performed by Carin Regalado CCA per orders from MD Kayla Varghese RT(R)/CMA Kami Perez MD - 12/07/2015 0849 EDT Attestation statement: I discussed the patient with the resident/fellow at the time of the visit andagree with the findings and plan of care. Kami Perez MD 12/07/2015 8:49 Carin napier - 11/30/2015 1633 EDT POCT UPT result: negative Carin Barger 11/30/2015 16:33 Kami Ny MD - 11/30/2015 1608 EDT CC: Nausea SUBJECTIVE: F/u nausea and abdominal pain. (Apr- August). At that time had started chantix. Was started on omeprazole in July. This helped abdominal pain. Pain has subsided. Still feeling nauseated. Taking zofran a lot. Medicaid wont' cover more than 8 pills a month. Feels nauseated in am. Worse with lying on stomach. Worse with eating. Does force herself to eat. But eats small amounts. Denies vomiting. Denies diarrhea or constipation. Regular BMs. Does not take OTC. Stopped taking peptobismol because made her constipated. Stopped using alcohol. Makes symptoms worse. Stopped all coffee. Stopped soda except ian renetta. Dairy does not cause symptoms. Started fluoxetine 2 months ago. But has tried not taking it for 2 weeks and still had nausea. Has not been under stress. Does not think stress related. Has Mirena. Has irregular periods. ROS: Denies fevers, chills, chest pain, shortness of breath, abdominal pain, unintentional weight loss, vomiting, rash History: Social, family, and personal medical history reviewed and documented in the medical record. Medications: Reviewed and documented in the medical record OBJECTIVE: Visit Vitals ??? BP 108/72 ??? Pulse 64 ??? Resp 16 ??? Ht 162.6 cm (64) ??? Wt 88 kg (194 lb) ??? BMI 33.3 kg/m2 Gen: well-appearing overweight woman in NAD Head: NC/AT, WIN[place]RED, sclera anicteric, conjunctiva pink, EOMI. MMM, Good dentition, no mouth sores orlesions Neck: supple, trachea midline, no CLA CV: RRR, nl S1 & S2, no mrg Pulm: CTAB, no wheezes or rhonchi GI: soft, NTND, no HSM, no guarding or rigidity Ext: wwp, no cyanosis or clubbing, no peripheral edema, 2+ dorsalis pedis pulses b/l Skin: Nl color, temperature, and turgor. No scaling, excoriations, or ecchymosis. Neuro: AOx3, cognition grossly intact Psych: normal mood and affect, answers questions appropriately, maintains eye contact Studies: Normal LFT's in July ASSESSMENT: The patient is a 25 yo woman who presents with chronic nausea. PLAN by problem: 1. Nausea Possibly IBS vs PUD (though does not have pain) vs food allergy. Will try TCA for symptom control and refer to GI. - Amb Consult/Follow Up Gastroenterology - POCT Urine Test-NEGATIVE - amitriptyline (ELAVIL) 10 mg tablet; Take 1 Tab by mouth at bedtime. Dispense: 30 Tab; Refill: 1 Follow up: 3 mo ROV for nausea Discussed with Dr. Chris Friend MD PGY-2 Family Medicine, #[id number] 11/30/2015 16:08 documented in this encounter Plan of Treatment Scheduled Referrals Name Type Priority Associated Order Schedule Diagnoses AMB CONS/FOLLOW UP Outpatient Routine Nausea Ordered: GASTROENTEROLOGY Referral 11/30/2015 documented as of this encounter Procedures Procedure Name Priority Date/Time Associated Diagnosis Comme nts POCT Routine 11/30/2015 16:27 Nausea Results f or this TEST, VISUAL READ EDT procedure are in the results section. documented in this encounter Results POCT URINE TEST (11/30/2015 16:27 EDT) Pathologist Sig nature Test, Urine, POC Negative . POINT OF CARE Control Line Present Yes POINT OF CARE Background Clear? Yes POINT OF CARE Specimen Urine (substance) Performing Organization Address City/State/ZIP Code Phon e Number [facility] POINT OF CARE POINT OF CARE documented in this encounter Visit Diagnoses Diagnosis Nausea - Primary Nausea alone documented in this encounter Care Teams Lead Designer Relationship Specialty Start Date End Date Ralph Bowman MD PCP - General 11/27/14 02/07/18 documented as of this encounter
--- OUTSIDE RECORDS SUMMARY | 2021-10-28 15:09 | XMS_ITS | Encounter Summary ---
:1990 Author Organization [facility] Address [address] [place] [address] Care Team Providers Name Role Phone Ralph Bowman MD Primary Care Provider Unavailable Reason for Visit Reason Onset Date Comments Follow-up 07/10/2017 Encounter Details Date Type Department Care Team Description 07/10/2017 Telephone [facility] Family Medicine Lisa Penn LPN Follow-up - [address] [address] Social History Tobacco Use Types [...] this encounter Miscellaneous Notes Telephone Encounter - Lisa Pnen LPN - 07/10/2017 8204 EDT We see [facility] on 07/04. How are you feeling/symptoms improving? Yes Do you have any questions? No: Still having some neck pain and headaches, but using muscle relaxer prescribed at walk in and attributes it to stress and fatigue Can we schedule a follow up visit? No: will call if she wants a visit at any point to look into thisfurther. documented in this encounter Plan of Treatment Not on filedocumented as of this encounter Visit Diagnoses Not on filedocumented in this encounter Care Teams Soft Boarder Relationship Specialty Start Date End Date Ralph Bowman MD PCP - General 11/27/14 02/07/18 documented as of this encounter
--- OUTSIDE RECORDS SUMMARY | 2021-10-28 15:09 | XMS_ITS | Encounter Summary ---
:1990 Author Organization [facility] Address [address] [place] [address] Care Team Providers Name Role Phone Ralph Bowman MD Primary Care Provider Unavailable Reason for Visit Reason Comments Abdominal Pain Encounter Details Date Type Department Care Team Description 07/09/2015 Office Visit [facility] [place] Unknown, Prov MD nora Epigastric pain Family Medicine - Maycol Cornell MD [address] [place] [address] [place] [phone] (Primary Dx) [address] [id number] Social History Tobacco Use Types Packs/Day Years [...] Reading Time Taken Comments Blood Pressure 118/64 07/09/2015927 EDT Pulse 60 07/09/2015927 EDT Temperature 37.1 ??C (98.8 ??F) 07/09/2015927 EDT Respiratory Rate 16 07/09/2015927 EDT Oxygen Saturation - - Inhaled Oxygen Concentration - - Weight 83.9 kg (185 lb) 07/09/2015927 EDT Height 165.1 cm (5' 5) 07/09/2015927 EDT Body Mass Index 30.79 07/09/2015927 EDT documented in this encounter Functional Status Cognitive Status Response Date of Assessment Because of a physical, mental, or emotional condition, do Ye s 05/14/2011 you have serious difficulty concentrating, remembering, or making decisions? (5 years old or older) documented as of this encounter Ordered Prescriptions Prescription Sig Dispensed Refills Start Date End Date pantoprazole (PROTONIX) 40 Take 1 Tab by mouth 60 Tab 2 07/09/2015 09/01/2015 mg tabletIndications: daily. Epigastric pain documented in this encounter Progress Notes Kami Perez MD - 07/13/2015 0749 EDT Attestation Statement: I saw and examined the patient and discussed the findings and plans with the resident/fellow. Kami Perez MD 07/13/2015 7:49 Zulma Milan LPN - 07/09/2015 1204 EDT Breath sample obtained for H-Pylori, Venipuncture performed for cmp, cbc diff Per orders of Luz Elena Cornell MD Diagnosis of R10.13 Zulma Medellin LPN 07/09/2015 12:05 Maycol Lovett MD - 07/09/2015 1002 EDT Subjective: Patient ID: Renetta Bradley is an 25 y.o. female. Chief Complaint Patient presents with ??? Abdominal Pain HPI Comments: 25 y.o. Female presents with epigastric pain and nausea since April. Pain comes and goes, worse after eating. Feels like I was punched in the stomach. Denies diarrhea or constipation,having 2-3 formed bowel movements with no blood but some mucous. Tried TUMs, Zantac, and Pepto-bismal with limited relief. Requesting referral to GI. Has history of IBS, previously followed by GI as a teenager, last seen May 2012, had undergone colonoscopy at that time which was unremarkable with the exception of internal hemmorrhoids. Abdominal Pain Associated symptoms include nausea. Pertinent negatives include no constipation, diarrhea, fever, headaches, melena, vomiting or weight loss. Patient Active Problem List Diagnosis ??? Left [...] BY MOUTH DAILY 30 Cap 5 ??? lamotrigine (LAMICTAL) 25 mg tablet Take [...] needed for Nausea. 15 Tab 0 ??? varenicline (CHANTIX) 1 mg tablet Take 1 tablet twice daily 60 Tab 0 No current facility-administered medications on file prior to visit. Allergies Allergen Reactions ??? Sulfa (Sulfonamide Antibiotics) Anaphylaxis ??? Bee Pollens Anaphylaxis Social History Substance Use Topics ??? Smoking status: Former Smoker -- 0.25 packs/day for 7 years Types: Cigarettes Quit date: 09/11/2013 ??? Smokeless tobacco: Never Used ??? Alcohol Use: No Comment: occasion Review of Systems Constitutional: Negative for fever, chills, weight loss, malaise/fatigue and diaphoresis. HENT: Negative for congestion and sore throat. Respiratory: Negative for cough, shortness of breath and wheezing. Cardiovascular: Negative for chest pain, palpitations, orthopnea and claudication. Gastrointestinal: Positive for heartburn, nausea and abdominal pain. Negative for vomiting, diarrhea, constipation, blood in stool and melena. Skin: Negative. Neurological: Negative for weakness and headaches. - See HPI Objective: BP 118/64 mmHg Pulse 60 Temp(Src) 37.1 ??C (98.8 ??F) (Oral) Resp 16 Ht 165.1 cm (65) Wt 83.915 kg (185 lb) BMI 30.79 kg/m2 LMP 05/11/2015 (Approximate) Physical Exam Constitutional: She is oriented to person, place, and time. She appears well- developed and well-nourished. No distress. HENT: Head: Normocephalic and atraumatic. Eyes: Right eye exhibits no discharge. Left eye exhibits no discharge. Cardiovascular: Normal rate, regular rhythm and normal heart sounds. Pulmonary/Chest: Effort normal and breath sounds normal. Abdominal: Soft. Bowel sounds are normal. She exhibits no distension and no mass. There is tenderness in the epigastric area. There is no rigidity, no rebound and no guarding. No hernia. Nausea with palpation of epigastric area Neurological: She is alert and oriented to person, place, and time. Skin: Skin is warm and dry. She is not diaphoretic. Vitals reviewed. Assessment and Plan: Renetta was seen today for abdominal pain. Diagnoses and all orders for this visit: Epigastric pain: History and exam consistent with likely GERD and possible PUD, will obtain H. Pylori breath test, CMP and CBC, begin Protonix 40 mg PO daily, follow up in 4 weeks. Orders: - Hemagram & Differential - Comprehensive Metabolic Panel (CMP) - Helicobacter Pylori Breath Test - pantoprazole (PROTONIX) 40 mg tablet; Take 1 Tab by mouth daily. Return in about 1 month (around 08/08/2015) for Epigastric pain. documented in this encounter Plan of Treatment Not on filedocumented as of this encounter Procedures Procedure Name Priority Date/Time Associated Comments Diagnosis H. PYLORI BREATH TEST Routine 07/09/2015 10:32 Epigastric pain Results for this EDT procedure are i n the results section. COMPLETE BLOOD COUNT Routine 07/09/2015 10:32 Epigastric pain Results for this AND DIFFERENTIAL EDT procedure a re in the results section. COMPREHENSIVE Routine 07/09/2015 10:32 Epigastric pain Results for this METABOLIC PANEL (CMP) EDT proced ure are in the results section. documented in this encounter Results H. PYLORI BREATH TEST (07/09/2015 10:32 EDT) H. pylori Breath Negative Negative [facility] Tst Comment: LABORATORY (Note) SERVICES Result indicates the absence of current Helicobacter p ylori infection. Performed by: [facility] Labs: [address], [place] [address], Lab Dir: Woodrow Sanford II, M.D., Ph.D. Specimen Other (qualifier value) - Other Performing Organization Address City/State/ZIP Code Phon e Number [facility] LABORATORY [address] [place] [address] SERVICES COMPREHENSIVE METABOLIC PANEL (CMP) (07/09/2015 10:32 EDT) Potassium 4.7 3.5 - 5.0 [facility] mEq/L [facility] SERVICES Sodium 139 136 - 145 [facility] mEq/L [facility] SERVICES Chloride 104 96 - 110 [facility] mEq/L [facility] CO2 26 24 - 32 mEq/L [facility] LABORATORY SERVICES Total Alkaline 84 38 - 126 U/L [facility] Phosphatase [place] [facility] SERVICES Bilirubin, Total 0.8 <1.4 mg/dl [facility] LABORATORY SERVICES AST 29 15 - 46 U/L [facility] LABORATORY SERVICES ALT 37 <53 U/L [facility]ORATORY SERVICES Albumin 3.8 3.4 - 4.9 [facility] g/dl [place] [facility] SERVICES Total Protein 6.7 6.3 - 8.2 [facility] g/dl [place] [facility] SERVICES Creatinine 0.63 0.52 - 1.04 [facility] mg/dl [place] [facility] SERVICES GFR, Calculated 126 >60 [facility] Comment: ml/min/1.73m2 [facility] LAB[facility]ORY eGFR calculated using CKD-EPI equation for SERVICES non Americans. Multiply eGFR by 1.16 for Americans. BUN 11 10 - 26 mg/dl [facility] LABORATORY SERVICES Calcium 8.8 8.5 - 10.5 [facility] mg/dl [place] [facility] SERVICES Calculated Calcium 9.4 8.5 - 10.5 [facility] mg/dl [place] [facility] SERVICES Glucose, Serum 84 70 - 100 [facility] mg/dl [place] [facility] SERVICES Fasting? Unknown [facility] LABORATORY SERVICES Specimen Blood specimen (specimen) - Blood Performing Organization Address City/State/ZIP Code Phon e Number [facility]ORY [address] [place] [address] SERVICES HEMAGRAM AND DIFFERENTIAL (07/09/2015 10:32 EDT) Pathologist Sig nature WBC 5.84 4.0 - 12.4 [facility] K/cmm LABORATORY SERVICES RBC 4.65 3.86 - 5.04 [facility] M/[facility] LABORATORY SERVICES Hemoglobin 14.7 11.6 - 15.2 [facility] gm/dl LABORATORY SERVICES HCT 42.5 34.9 - 44.4 % [facility] LABORATORY SERVICES MCV 91 81 - 98 fl [facility] LABORATORY SERVICES MCH 31.6 26.7 - 33.3 pg [facility] LABORATORY SERVICES MCHC 34.6 32.1 - 35.9 [facility] gm/dl LABORATORY SERVICES RDW-CV 12.0 11.7 - 14.6 % [facility] LABORATORY SERVICES RDW-SD 39.9 37.6 - 50.3 fl [facility] LABORATORY SERVICES PLT 207 141 - 377 [facility] MPV 12.5 9.5 - 12.7 fl [facility] LABORATORY SERVICES Neutrophils 59.1 % [facility] LABORATORY SERVICES Lymphocytes 30.3 % [facility] LABORATORY SERVICES Monocytes 7.5 % [facility] LABORATORY SERVICES Eosinophils 1.9 % [facility] LABORATORY SERVICES Basophils 1.0 % [facility] LABORATORY SERVICES Immature Grans 0.2 % [facility] LABORATORY SERVICES ABS Neutrophils 3.45 2.20 - 8.85 [facility] LABORATORY SERVICES ABS Lymphs 1.77 1.09 - 3.30 [facility] LABORATORY SERVICES ABS Monocytes 0.44 0.1 - 0.8 K/[facility] LABORATORY SERVICES ABS Eosinophils 0.11 0.03 - 0.61 [facility] LABORATORY SERVICES ABS Basophils 0.06 0.01 - 0.11 [facility] LABORATORY SERVICES ABS Immature Grans 0.01 0 - 0.06 /[facility] LABORATORY SERVICES Type of Diff: Automated [facility] LABORATORY SERVICES Specimen Blood specimen (specimen) - Blood Performing Organization Address City/State/ZIP Code Phon e Number [facility]ORY [address] [place] [address] SERVICES documented in this encounter Visit Diagnoses Diagnosis Epigastric pain - Primary Abdominal pain, epigastric documented in this encounter Care Teams Tree Wrapper Relationship Specialty Start Date End Date Ralph Bowman MD PCP - General 11/27/14 02/07/18 documented as of this encounter
--- OUTSIDE RECORDS SUMMARY | 2021-10-28 15:09 | XMS_ITS | Encounter Summary ---
:1990 Author Organization [facility] Address [address] [place] [address] Care Team Providers Name Role Phone Ralph Bowman MD Primary Care Provider Unavailable Reason for Visit Reason Onset Date Comments Medication Problem 01/19/2017 Encounter Details Date Type Department Care Team Description 01/19/2017 Telephone [facility] Izaguirre Medication Problem Medicine - Dylan Allred MD [address] [place] [phone] Social History Tobacco Use Types Packs/Day Years [...] Refills Start Date End Date FLUoxetine (PROZAC) 20 mg TAKE 1 CAP BY MOUTH 30 Cap 5 1 03/28/2019 capsuleIndications: DAILY Anxiety documented in this encounter Miscellaneous Notes Telephone Encounter - Natividad Scales - 01/19/2017 1626 EDT Called patient and let her know that her new prescription has been sent to the pharmacy with the lower dosage. elephone Encounter - Yogesh Quinn MD - 01/19/2017 1244 EDT Agree with dropping dose of prozac from 40 mg to 20 mg; a new prescription was sent. Telephone Encounter - Natividad Scales - 01/19/2017 1216 EDT error elephone Encounter - Merlin Tidwell - 01/19/2017 1203 EDT T/c to patient. Patient wants to drop from 40 mg to 20 mg fluoxetine. Patient had originally been on fluoxetine 20 mg and was stable in July 2015. Patient started takingchantix at the same time to quit smoking and was having suicidal thoughts. Fluoxetine was increased to 40 mg daily at this time to deal with SI. Patient stopped taking the fluoxetine earlier this year and had feeling depressed again and called office on 10/26/16 to start fluoxetine again. At this time she was given script for 40 mg daily and has been taking it since that time. Patient is requesting that she go down to 20 mg daily as she has been feeling emotionally labile with lots of ups and downs, has increased anxiety, and extreme fatigue. Denies SI. Advised will send message to PCP and covering provider. elephone Encounter - aNtividad Scales - 01/19/2017 1151 EDT Patient is calling because she is wondering if she can decrease her dosage of her Fluoxetine 40 mg, to 20 mg. She thinks her dosage is too high. She would like a nurse to call her back at [phone]. documented in this encounter Plan of Treatment Not on filedocumented as of this encounter Visit Diagnoses Diagnosis Anxiety - Primary Anxiety state, unspecified documented in this encounter Discontinued Medications Medication Sig Discontinue Reason Start Date End Date FLUoxetine (PROZAC) 40 mg Take 1 Cap by mouth 10/27/19 17 01/19/2017 capsule daily. documented as of this encounter Care Teams Risk Developer Relationship Specialty Start Date End Date Ralph Bowman MD PCP - General 11/27/14 02/07/18 documented as of this encounter
--- OUTSIDE RECORDS SUMMARY | 2021-10-28 15:09 | XMS_ITS | Encounter Summary ---
:1990 Author Organization [facility] Address [address] [place] [id number] Care Team Providers Name Role Phone Ralph Bowman MD Primary Care Provider Unavailable Reason for Visit Reason Comments Dental Pain Encounter Details Date Type Department Care Team Description 11/27/2014 Hospital Encounter [facility] Maria De Jesus [place] Dental caries Urgent Care - [place] Perez PA-C (Primary Dx) [address] [place] [address] [phone] [place] [phone] Social History Tobacco Use Types Packs/Day Years [...] Sign Reading Time Taken Comments Blood Pressure 117/62 11/27/2014 1354 EDT Pulse 66 11/27/2014 1354 EDT Temperature 37.7 ??C (99.8 ??F) 11/27/2014 1354 EDT Respiratory Rate 18 11/27/2014 1354 EDT Oxygen Saturation - - Inhaled Oxygen [...] as of this encounter Discharge Diagnoses Diagnosis 521.00 UNSPECIFIED DENTAL CARIES[ICD-9-C M] documented in this encounter Discharge Instructions Maria De Jesus Luna PA-C - 11/27/2014 As we discussed, some things other than medication that may make your dental pain better is cleaningyour teeth throughly and then putting dental wax in the area where your tooth has broken. Be sure toremove the wax for eating. Eating softer foods that you do not have to chew will also be helpful, as well as an ice pack on theoutside of your face where the pain is. You may also want to try placing oil of clove- a natural anesthetic in the area. Return immediately for fever, drainage of pus or any other concerns. AttachmentsThe following attachments cannot be sent through Care Everywhere. TOOTH DECAY (MAORI)documented in this encounter Medications at Time of Discharge Medication Sig Dispensed Refills Start Date End Date albuterol 90 Inhale 1 Puff as 1 Inhaler 0 07/31/20142019 mcg/actuation inhaler directed every 6 hours as needed for Wheezing FLUoxetine (PROZAC) 20 Take 1 Cap by mouth 30 Cap 3 07/0905/24/2015 mg capsule daily folic acid (FOLVITE) 1 Take 4 Tabs by mouth 100 Tab 11 06/02/2015 mg tablet daily lamotrigine (LAMICTAL) Take 1 pill every day 50 Tab 0 07/15/2015 25 mg tablet for 2 weeks. If no serious side effects, start taking 2 pills once a day for another 2 weeks. See neurologist LILLY for further adjustments. LEVONORGESTREL (MIRENA by Intrauterine 0 04/24/2016 IU) route. documented as of this encounter Ordered Prescriptions Prescription Sig Dispensed Refills Start Date End Date amoxicillin (AMOXIL) 875 Take 1 Tab by mouth 10 Tab 0 12/02/2014 mg tablet 2 times daily for 5 days documented in this encounter Discharge Disposition Disposition Code Departure Means Destination Home or Self Care documented in this encounter ED Notes Maria De Jesus [place] PA-C - 11/27/2014 1549 EDT DOS: 11/27/2014 Chief Complaint Patient presents with ??? Dental Pain The patient is a 24 y.o. female who presents today with Dental Pain HPI Comments: This is an otherwise relatively healthy 24-year-old female patient who presents with concerns about a filling that has fallen out, right upper part of the mouth. She has fairly minimal pain. She called her denist who she states cannot see her for almost 2 weeks. She states that her dentist recommended that she be seen here to be placed on prophylactic antibiotics. Since that time, the patient has established new patient appointment with a new dentist, at [facility] dental clinic. She has an appointment in 4 days. She has no fever and feels otherwise well. The history is provided by the patient. Dental Pain Associated symptoms: no fever, no headaches and no neck pain Review of Systems Constitutional: Negative for fever, chills, activity change, appetite change and fatigue. HENT: Positive for dental problem. Negative for sore throat. Musculoskeletal: Negative for neck pain. Neurological: Negative for dizziness, syncope, weakness, numbness and headaches. No current facility-administered medications for this encounter. Current Outpatient Prescriptions Medication Sig Dispense Refill ??? albuterol 90 mcg/actuation inhaler Inhale 1 Puff as directed every 6 hours as needed for Wheezing 1 Inhaler 0 ??? amoxicillin (AMOXIL) 875 mg tablet Take 1 Tab by mouth 2 times daily for 5 days 10 Tab 0 ??? FLUoxetine (PROZAC) 20 mg capsule Take 1 Cap by mouth daily 30 Cap 3 ??? folic acid (FOLVITE) 1 mg tablet Take 4 Tabs by mouth daily 100 Tab 11 ??? lamotrigine (LAMICTAL) 25 mg tablet Take 1 pill every day for 2 weeks. If no serious side effects, start taking 2 pills once a day for another 2 weeks. See neurologist LILLY for further adjustments.50 Tab 0 ??? LEVONORGESTREL (MIRENA IU) by Intrauterine route. Allergies Allergen Reactions ??? Sulfa (Sulfonamide Antibiotics) [...] per GI. Will need re-eval ??? Extrinsic asthma, unspecified 12/15/2010 Uses albuterol inhalers. Uses PRN, but needs less than 1x/ week. ??? Convulsions 11/23/2010 New onset - hospitalized 11/21/10 - work up negative, saw neurology - no meds started ??? Spasm of back muscles 05/24/2011 ??? Poisoning by phenytoin 05/13/2011 ??? Elevated liver function tests 05/13/2011 ??? [...] Substance Use Topics ??? Smoking status: Current Some Day Smoker -- 0.25 packs/day for 7 years Types: Cigarettes Last Attempt to Quit: 09/11/2013 ??? Smokeless tobacco: Never Used ??? Alcohol Use: No Comment: occasion Family History Problem Relation Age of Onset ??? Depression Mother ??? Depression Maternal Grandfather severe ??? Hypertension Maternal Grandfather ??? Diabetes Maternal Grandfather ??? Cancer Paternal Grandmother BP 117/62 mmHg Pulse 66 Temp(Src) 99.8 ??F (37.7 ??C) (Temporal) Resp 18 Physical Exam Constitutional: She is oriented to person, place, and time. She appears well- developed and well-nourished. No distress. HENT: Head: Normocephalic. Mouth/Throat: Oropharynx is clear and moist. No oral lesions. No trismus in the jaw. No dental caries. Part of a filling in her right superior bicuspid is absent. No obvious decay. Surrounding gingiva is pink and moist. Cardiovascular: Normal rate, regular rhythm and normal heart sounds. Pulmonary/Chest: Effort normal and breath sounds normal. No respiratory distress. Neurological: She is alert and oriented to person, place, and time. Skin: Skin is warm and dry. No rash noted. Psychiatric: She has a normal mood and affect. Her behavior is normal. Nursing note and vitals reviewed. Consult orders: None PCP: Ralph Bowman No results found for this visit on 11/27/14. No orders to display Radiology orders: None Imaging Results None No orders to display Procedures Course: A medical screening exam was performed. Disposition: Discharged The patient's pain was managed to an adequate level weighing risk vs. benefit of further medications. Upon departure from [facility], the patient's pain was 4 on a zero to ten scale. Condition at departure from the [facility] : Stable Final diagnoses: Dental caries - with partial loss of previous filling I have prescribed amoxicillin, particularly in light of the fact that pt states she was told by her previous dentist that she needed to come here specifically for antibiotics. We talked about cleaning really well and then using OTC dental wax for symptomatic relief. Follow up as planned with [facility] dental for her new patient appointment in [address] Jackeline Richards was available for consultation during my care of this patient. [facility] 11/27/2014 15:49 Maegan patrick MA - 11/27/2014 7185 EDT Pt presents today with dental pain due to a filling that has fallen out. Pt had an appt Sunday withthe [facility] dental clinic. documented in this encounter Plan of Treatment Not on filedocumented as of this encounter Visit Diagnoses Diagnosis Dental caries - Primary Unspecified dental caries documented in this encounter Care Teams Classification Analyst Relationship Specialty Start Date End Date Ralph Bowman MD PCP - General 11/27/14 02/07/18 documented as of this encounter
--- OUTSIDE RECORDS SUMMARY | 2021-10-28 15:09 | XMS_ITS | Encounter Summary ---
:1990 Author Organization [facility] Address [address] [place] [address] Care Team Providers Name Role Phone Ralph Bowman MD Primary Care Provider Unavailable Reason for Visit Reason Onset Date Comments Follow-up 05/10/2015 05/08/2015 [facility] In [facility] for a C/o right hand wound and a Dx of Ynspecified op en wound of right hand, intial encounter Encounter Details Date Type Department Care Team Description 05/10/2015 Telephone [facility] Julio C, Follow-up (05/08/2015 Family Medicine - STEFANIA Lowe [facility] Walk I n Clinic for a [place] C/o right hand wound and [address] [place] [address] wound of right hand, intial encounte r) Social History Tobacco Use Types Packs/Day Years [...] the food you bought just Never tr ujanae 06/20/2019 didn't last and you didn't have [...] this encounter Miscellaneous Notes Telephone Encounter - Chrissy Bunch LPN - 05/10/2015 4468 EST We see you were seen on 05/08/2015 [facility] Walk In Clinic for a C/o right hand wound and a Dx of Ynspecified open wound of right hand, intial encounter Are your symptoms improving? Yes Do you have any questions? No Can we schedule a follow up visit? No, patient declined follow up at this time. Patient advised to return to the ED if symptoms worsen or to call with any concerns or the need for a follow up appointment. Patient verbalized understanding, with no barriers to learning. Patient had no further questions. documented in this encounter Plan of Treatment Not on filedocumented as of this encounter Visit Diagnoses Not on filedocumented in this encounter Care Teams Slitter Service And Setter Relationship Specialty Start Date End Date Ralph Bowman MD PCP - General 11/27/14 02/07/18 documented as of this encounter
--- OUTSIDE RECORDS SUMMARY | 2021-10-28 15:09 | XMS_ITS | Encounter Summary ---
:1990 Author Organization [facility] Address [address] [place] [address] Care Team Providers Name Role Phone Ralph Bowman MD Primary Care Provider Unavailable Encounter Details Date Type Department Care Team Description 06/09/2015 Results Only [facility] Erica Marvin, DRESSMAKING TEACHER Women's Services - [address], [address], [address] [place], [place] [address] [place] [address] [phone] (Wo rk) Social History Tobacco Use [...] Priority Date/Time Associated Diagnosis Comme nts PAP TEST- RESULT Routine 06/09/2015 0:00 EST Resu lts for this ONLY procedure are i n the results section. documented in this encounter Results PAP TEST- RESULT ONLY (06/09/2015 0:00 EST) Pathology Report: CYTOPATHOLOGY REPORT [facility] Reports generated via electronic interface contain matthew ginal data; SERVICES however they are lacking the format of the original re port. Caution should be taken when reading/interpreting unfo rmatted reports. Name: ? RENETTA DAWKINS ? Accession #: ? [id number] : ? 1990 (Age: [age]) ??F ?Collect Date: ? 2015 Location: ? OBGYN ? Receive Leandro e: ? 06/11/2015 Provider: ?HOPE MARVIN DRESSMAKING TEACHER Copy to: ? Specimen/Source: ? Pap Test, Cervix/Endocervix, ThinPrep Imaging System with manual evaluation Last Menstrual Period: ? Hormonal/Contraceptive Status: ? Intrauterine device: Mirena Previous Gynecologic Pathology: ? None Treatment History: ? None ? SPECIMEN ADEQUACY ? Satisfactory for Evaluation - transformation zone component present GENERAL CATEGORIZATION ? Negative for Intraepithelial Lesion or Malignan cy ? Document reviewed and electronically signed by: ? Alpa Dennis, [place](ASCP) ? Report Date: ??06/16/2015 09:01 End of Report Specimen Performing Organization Address City/State/ZIP Code Phon e Number [facility] [address] [place], [place] [id number] SERVICES documented in this encounter Visit Diagnoses Not on filedocumented in this encounter Care Teams Or Nurse Manager Relationship Specialty Start Date End Date Ralph Bowman MD PCP - General 11/27/14 02/07/18 documented as of this encounter
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
--- OUTSIDE RECORDS SUMMARY | 2021-10-28 15:09 | XMS_ITS | Encounter Summary ---
:1990 Author Organization [facility] Address [address] [place] [address] Care Team Providers Name Role Phone Ralph Bowman MD Primary Care Provider Unavailable Reason for Visit Reason Onset Date Comments Dizziness 04/05/2017 Encounter Details Date Type Department Care Team Description 04/05/2017 Telephone [facility] Ralph Izaguirre [facility] - Dylan Allred MD [address] [place] [phone] Social History Tobacco Use Types Packs/Day Years [...] Sig Dispensed Refills Start Date End Date meclizine (ANTIVERT) 25 mg Take 1 Tab by mouth 10 Tab 1 04/05/2017 07/04/2017 tablet 3 times daily as needed for Dizziness. documented in this encounter Miscellaneous Notes Telephone Encounter - Lori Faye RN - 04/05/2017 1555 EST Call to patient to let her know about meclizine being ordered and to call if no success with relieving the vertigo. Patient verbalizes understanding. No barriers to learning noted. elephone Encounter - Lori Faye RN - 04/05/2017 1512 EST Call to patient who states she has a history of vertigo. Started with a cold 2 days ago, woke up this morning really stuffy in the head and is now having vertigo. Asking for a refill on her meclizine. Will follow up with provider. Patient offered appointment. Declined as she does not have a ride at this time. Would like to try the meclizine and if still having symptoms will schedule appointment. Willfollow up with provider and call patient back. Patient verbalizes understanding. No barriers to learning noted. Medication(s) Requested: meclinzine Preferred Pharmacy: [facility] Is patient out of medication? Yes Last Refill Date: 2009 Last Visit Date with Ordering Provider: 12/01/16 Next Non-Acute Visit Date Scheduled with Care Team: No. To for review. Lori Faye RN 04/05/2017 15:18 elephone Encounter - Teresa El - 04/05/2017 1506 EST Reason for Call: Dizziness Summary/Symptoms: Patient has a history of vertigo, she has been seen in the walk in in the past. Patient has a head cold and is now having vertigo symptoms. She would like something called in. Onset and Duration? Head cold for a few days, vertigo started today. Appointment Offered? No Teresa El 04/05/2017 15:08 documented in this encounter Plan of Treatment Not on filedocumented as of this encounter Visit Diagnoses Not on filedocumented in this encounter Care Teams Surgical Device Sales Representative Relationship Specialty Start Date End Date Ralph Bowman MD PCP - General 11/27/14 02/07/18 documented as of this encounter
--- OUTSIDE RECORDS SUMMARY | 2021-10-28 15:09 | XMS_ITS | Encounter Summary ---
:[address] [facility] Address [address] [place] [address] Care Team Providers Name Role Phone Ralph Bowman MD Primary Care Provider Unavailable Reason for Visit Reason Onset Date Comments Medications Refill 10/13/2015 Encounter Details Date Type Department Care Team Description 10/13/2015 Refill [facility] Ralph Izaguirre Medications Refill Medicine - Dylan Allred MD [address] [place] [phone] Social History Tobacco Use Types Packs/Day Years [...] CAP BY MOUTH 30 Each 1 0 10/13/2015 11/25/2015 capsuleIndications: DAILY Anxiety documented in this encounter Miscellaneous Notes Telephone Encounter - Paige Arroyo - 10/13/2015 1357 EDT Medication(s) Requested: Fluoxetine 303rf Pharmacy: [facility] Last Refill Date: 08/26/15 Last Visit Date: 08/26/15 Next Visit Date: 10/21/2015 Is patient out of medication? Yes, needs new RX written also, was previously written by Kathryn Morgan and insurance is refusing Paige Arroyo 10/13/2015 13:57 documented in this encounter Plan of Treatment Not on filedocumented as of this encounter Visit Diagnoses Diagnosis Anxiety - Primary Anxiety state, unspecified documented in this encounter Discontinued Medications Medication Sig Discontinue Reason Start Date End Date FLUoxetine (PROZAC) 40 mg TAKE 1 CAP BY MOUTH Reorder 08/26/19 16 10/13/2015 capsuleIndications: DAILY Anxiety documented as of this encounter Care Teams Bean Snipper Relationship Specialty Start Date End Date Ralph Bowman MD PCP - General 11/27/14 02/07/18 documented as of this encounter
--- OUTSIDE RECORDS SUMMARY | 2021-10-28 15:09 | XMS_ITS | Encounter Summary ---
:1990 Author Organization [facility] Address [address] [place] [address] Care Team Providers Name Role Phone Ralph Bowman MD Primary Care Provider Unavailable Reason for Visit Reason Onset Date Comments Medications Refill 10/26/2016 Encounter Details Date Type Department Care Team Description 10/26/2016 Telephone [facility] Ralph Izaguirre Medications Refill Medicine - Dylan Allred MD [address] [place] [id number] Social History Tobacco Use Types Packs/Day [...] 40 mg Take 1 Cap by mouth 90 Cap 2 0 10/26/2016 01/19/2017 capsule daily. documented in this encounter Miscellaneous Notes Telephone Encounter - Teresa El - 10/26/2016 1304 EDT Medication(s) Requested: Fluoxetine # 30 w/ 4 Pharmacy: [facility] Last Refill Date: 07/29/15 Last Visit Date: 11/25/15 Next Visit Date: Visit date not found Is patient out of medication? Yes Teresa El 10/26/2016 13:04 documented in this encounter Plan of Treatment Not on filedocumented as of this encounter Visit Diagnoses Not on filedocumented in this encounter Care Teams Finance Professional Relationship Specialty Start Date End Date Ralph Bowman MD PCP - General 11/27/14 02/07/18 documented as of this encounter
--- OUTSIDE RECORDS SUMMARY | 2021-10-28 15:09 | XMS_ITS | Encounter Summary ---
:1990 Author Organization [facility] Address [address] [place] [address] Care Team Providers Name Role Phone Ralph Bowman MD Primary Care Provider Unavailable Reason for Visit Reason Onset Date Comments Emergency Contraception 06/07/2016 Encounter Details Date Type Department Care Team Description 06/07/2016 Telephone [facility] Yvonne Schafer, Russel enclula Contraception Women's Services - [facility] [address] [place] [address] Social History Tobacco Use Types Packs/Day Years [...] Sig Dispensed Refills Start Date End Date ulipristal 30 mg tablet Take 1 Tab by mouth 1 Tab 0 04/201606/19/2016 once for 1 dose. documented in this encounter Miscellaneous Notes Telephone Encounter - Yvonne Schafer RN - 06/07/2016 1637 EST Renetta has been made aware of Rx to [facility], possible effects and when to call. She has no other questions or concerns. elephone Encounter - Yvonne Schafer RN - 06/07/2016 1220 EST Images from the original note were not included. Renetta is calling to request Rx for emergency contraception. She had unprotected IC Sunday and used the pull out method, she would like to prevent . She recently had her IUD removed andhas a scheduled nexplanon insertion 06/19/16. Discussed with Dr. Rojas and called Renetta back to advise; ulipristal 30 mg x 1 to be taken up to 5 days after unprotected IC (may not be covered by your insurance). Message left for Renetta to make her aware Rx has been sent to [facility] (they have it ordered and will be ready tomorrow at 2 pm). Pt can have it filled at [facility], but since she has never filled a prescription there they would need her to set up an account before they order anything. Asked Renetta to call [employer] back to confirm this plan. Also need to review possible side effects andwhen to call; Menstrual bleeding patterns may be altered (cycle length may be delayed or shortened by a few days), but returns to normal in subsequent cycles. Intermenstrual bleeding (spotting) has also been observed. Call if menses is delayed for ?1 week following emergency contraception, pelvic painor persistent irregular bleeding develops. documented in this encounter Plan of Treatment Not on filedocumented as of this encounter Visit Diagnoses Not on filedocumented in this encounter Care Teams Partition Assembler Relationship Specialty Start Date End Date Ralph Bowman MD PCP - General 11/27/14 02/07/18 documented as of this encounter
--- OUTSIDE RECORDS SUMMARY | 2021-10-28 15:09 | XMS_ITS | Encounter Summary ---
:1990 Author Organization [facility] Address [address] [place] [address] Care Team Providers Name Role Phone Ralph Bowman MD Primary Care Provider Unavailable Reason for Visit Reason Onset Date Comments Tinnitus 07/15/2015 Encounter Details Date Type Department Care Team Description 07/15/2015 Telephone [facility] Ralph Izaguirre [facility] Medicine - Dylan Allred MD [address] [place] [phone] Social History Tobacco Use Types Packs/Day [...] Telephone Encounter - Karis Love RN - 07/15/2015 1600 EDT Spoke with pt she tells me she was sitting at her computer at work about 15 minutes before she called He vision became blurry, felt dizzy, felt like her heart was racing. She tells me she is sitting on the floor at work with co-workers around her. Having flashing spots or stars in front of her eyes. Fingers starting to go numb. Hard to breathe. Had pt take her pulse for 1 minute, 90 beats. Pt says she had a bagel for breakfast, banana chips throughout the day, hot dog and potato salad forlunch. She was started on Protonix on 07/09/15 and says she was feeling nauseas today, took Pepto Bismal. Only other medication is Prozac. Says she has a slight ear ache and jaw ache on the right Tells me she has a history of epilepsy but has only ever had 2 awake seizures Advised pt to have a co-worker take her to the [facility] for evaluation Pt verbalized understanding of these instructions given and agrees with the plan. No barriers to learning. elephone Encounter - Ellie Smith - 07/15/2015 1549 EDT Patient is calling with complaint of ear ringing, blurry vision, fast heart beat and shortness of breath with concern of seizure. Please advise. documented in this encounter Plan of Treatment Not on filedocumented as of this encounter Visit Diagnoses Not on filedocumented in this encounter Care Teams Electrical System Specialist Relationship Specialty Start Date End Date Ralph Bowman MD PCP - General 11/27/14 02/07/18 documented as of this encounter
--- OUTSIDE RECORDS SUMMARY | 2021-10-28 15:09 | XMS_ITS | Encounter Summary ---
:1990 Author Organization [facility] Address [address] [place] [address] Care Team Providers Name Role Phone Ralph Bwoman MD Primary Care Provider Unavailable Reason for Visit Reason Comments Dysuria Encounter Details Date Type Department Care Team Description 01/20/2016 Hospital Encounter [facility] Arlin Richards MD [address] [place] [phone] Dysuria (Primary Dx); Urgent Care - [facility], Provider, Urinary tract infection in female [address] [id number] Social History Tobacco Use Types Packs/Day Years [...] Sign Reading Time Taken Comments Blood Pressure 100/70 01/20/2016 1041 EDT Pulse 76 01/20/2016 1041 EDT Temperature 36.5 ??C (97.7 ??F) 01/20/2016 1041 EDT Respiratory Rate 16 01/20/2016 1041 EDT Oxygen Saturation - - Inhaled Oxygen [...] as of this encounter Discharge Diagnoses Diagnosis N39.0 Urinary tract infection, site not specified-N39.0[ICD-10-CM] documented in this encounter Discharge Instructions Jackeline Schroeder MD - 01/20/2016 See instructions for urinary tract infection and safer sex. Do not have sex until you are completelybetter. AttachmentsThe following attachments cannot be sent through Care Everywhere.UTI (URINARY TRACT INFECTION): FEMALE (TURKMEN)SAFER SEX (TURKMEN)documented in this encounter Medications at Time of Discharge Medication Sig Dispensed Refills Start Date End Date albuterol 90 Inhale 1 Puff as 1 Inhaler 0 07/31/20142019 mcg/actuation inhaler directed every 6 hours as needed for Wheezing amitriptyline (ELAVIL) 10 Take 1 Tab by mouth 30 Tab 1 0 11/30/2015 04/24/2016 mg tabletIndications: at bedtime. Nausea BISMUTH SUBSALICYLATE Take by mouth. 0 04/24/2016 (PEPTO-BISMOL ORAL) Reported on 04/24/2016 FLUoxetine (PROZAC) 40 mg TAKE 1 CAP BY MOUTH 90 Each 3 0 11/25/2015 04/24/2016 capsuleIndications: DAILY Anxiety, Recurrent major depressive disorder, in full remission ([facility]) ([facility]) hydrOXYzine (ATARAX) 25 Take 0.5 Tabs by 30 Tab 1 201504/24/2016 mg tabletIndications: mouth 3 times daily Anxiety as needed for Anxiety (with panic). LEVONORGESTREL (MIRENA by Intrauterine 0 04/24/2016 IU) route. nitrofurantoin, Take 1 Cap by mouth 10 Cap 0 01/20/2016 01/25/2016 macrocrystal-monohydrate, 2 times daily for 5 (MACROBID) 100 mg capsule days. ondansetron (ZOFRAN) 4 mg Take 1 Tab by mouth 30 Tab 1 0 09/01/2015 04/24/2016 tabletIndications: Nausea daily as needed for Nausea. pantoprazole (PROTONIX) Take 1 Tab by mouth 60 Tab 2 04/24/2016 40 mg tabletIndications: daily. Gastroesophageal reflux disease, esophagitis presence not specified documented as of this encounter Ordered Prescriptions Prescription Sig Dispensed Refills Start Date End Date nitrofurantoin, Take 1 Cap by mouth 10 Cap 0 01/20/2016 01/25/2016 macrocrystal-monohydrate, 2 times daily for 5 (MACROBID) 100 mg capsule days. documented in this encounter Discharge Disposition Disposition Code Departure Means Destination Home or Self Care documented in this encounter ED Notes Jackeline Richards MD - 01/20/2016 1128 EDT DOS: 01/20/2016 Chief Complaint Patient presents with ??? Dysuria The patient is a 26 y.o. female who presents today with Dysuria Dysuria Pain quality: Sharp Pain severity: Moderate Onset quality: Gradual Duration: 3 days Timing: Constant Progression: Worsening Chronicity: New Recent urinary tract infections: no Relieved by: Nothing Urinary symptoms: frequent urination, hematuria and hesitancy Associated symptoms: flank pain and nausea Associated symptoms: no abdominal pain, no fever, no vaginal discharge and no vomiting Risk factors: sexually active and sexually transmitted infections Risk factors: not Review of Systems Constitutional: Negative for fever. Gastrointestinal: Positive for nausea. Negative for abdominal pain and vomiting. Genitourinary: Positive for dysuria and flank pain. Negative for vaginal discharge. Musculoskeletal: Negative for back pain. No current facility-administered medications for this encounter. Current Outpatient Prescriptions Medication Sig Dispense Refill ??? albuterol 90 mcg/actuation inhaler Inhale 1 Puff as directed every 6 hours as needed for Wheezing (Patient not taking: Reported on 01/20/2016) 1 Inhaler 0 ??? amitriptyline (ELAVIL) 10 mg tablet Take 1 Tab by mouth at bedtime. (Patient not taking: Reported on 01/20/2016) 30 Tab 1 ??? BISMUTH SUBSALICYLATE (PEPTO-BISMOL ORAL) Take by mouth. ??? FLUoxetine (PROZAC) 40 mg capsule TAKE 1 CAP BY MOUTH DAILY 90 Each 3 ??? hydrOXYzine (ATARAX) 25 mg tablet Take 0.5 Tabs by mouth 3 times daily as needed for Anxiety (with panic). (Patient not taking: Reported on 01/20/2016) 30 Tab 1 ??? LEVONORGESTREL (MIRENA IU) by Intrauterine route. ??? ondansetron (ZOFRAN) 4 mg tablet Take 1 Tab by mouth daily as needed for Nausea. 30 Tab 1 ??? pantoprazole (PROTONIX) 40 mg tablet Take [...] Topics ??? Smoking status: Former Smoker Years: . Types: Cigarettes Quit date: 05/10/2015 ??? Smokeless tobacco: Never Used ??? Alcohol use 0.0 - 0.6 oz/week 0 - 1 Standard drinks or equivalent per week Comment: occasion Family History Problem Relation Age of Onset ??? Depression Mother ??? Depression Maternal Grandfather severe ??? Hypertension Maternal Grandfather ??? Diabetes Maternal Grandfather ??? Cancer Paternal Grandmother BP 100/70 Pulse 76 Temp 97.7 ??F (36.5 ??C) (Tympanic) Resp 16 Physical Exam Constitutional: She is oriented to person, place, and time. She appears well- developed and well-nourished. Cardiovascular: Normal rate and regular rhythm. No murmur heard. Pulmonary/Chest: Effort normal and breath sounds normal. Abdominal: Soft. Normal appearance. There is no hepatosplenomegaly. There is tenderness in the suprapubic area. There is no CVA tenderness. Neurological: She is alert and oriented to person, place, and time. Skin: No bruising noted. She is not diaphoretic. Nursing note and vitals reviewed. Consult orders: None PCP: Ralph Bowman Results for orders placed or performed during the hospital encounter of 01/20/16 TEST, URINE Result Value Ref Range Result- Test, Ur Neg Neg URINE MICROSCOPIC ONLY Result Value Ref Range WBC, UA 10 to 50 0 - 5 /HPF RBC, UA 10 to 50 0 - 5 /HPF Squam Epithel, UA Few (A) None seen /HPF Renal Epithel, UA None seen None seen /HPF Bacteria, UA Frequent (A) None seen /HPF Crystals, UA None seen /HPF Casts, UA None seen /LPF UA Comment Microscopic results Mucus, UA Present POCT URINE DIPSTICK Result Value Ref Range Color YELLOW Clarity, UA CLOUDY Glucose Neg Neg Bilirubin Neg Neg Ketones Neg Neg Specific [place] >=1.030 1.001 - 1.035 Blood 2+ (A) Neg pH 6.0 4.6 - 8.0 Protein 2+ (A) Neg Urobilinogen 0.2 0.2 - 1.0 E.U./dl Nitrite Pos (A) Neg Leuk Esterase 1+ (A) Neg Tech ID [id number] Radiology orders: None Imaging Results None No orders to display Relevant Data Procedures URGENT CARE COURSE A medical screening exam was performed. Pt with hx and exam most c/w UTI, Rx with nitrofurantoin X 5days. Counseling done re: safe sexual practices. Declines STI testing at this time. Pt understands that if she continues to have sx beyond 48 hours needs to be seen again. ASSESSMENT AND PLAN Final diagnoses: Dysuria No supervision required. DISPOSITION: No disposition on file The patient's pain was managed to an adequate level weighing risk vs. benefit of further medications. Upon departure from [facility], the patient's pain was 6 on a zero to ten scale. Condition at departure from the [facility] : Stable MDM 01/20/2016 11:48 Jie Dave RN - 01/20/2016 1047 EDT On Sunday developed dysuria, urgency, pelvic discomfort and developed pain in right flank last night, had chills and sweats, noticed an increased amount of blood in her urine documented in this encounter Plan of Treatment Not on filedocumented as of this encounter Procedures Procedure Name Priority Date/Time Associated Diagnosis Comme nts POCT URINE STAT 01/20/2016 11:04 Dysuria Results for this DIPSTICK, CLINITEK EDT procedure are in the results section. URINE SEDIMENT STAT 01/20/2016 10:43 Dysuria Results f or this (MICRO) WITHOUT EDT procedure ar e in REFLEX TO CULTURE the result s section. TEST, STAT 01/20/2016 10:43 Dysuria Results for this URINE EDT procedure are i n the results section. documented in this encounter Results (ABNORMAL) POCT URINE DIPSTICK (01/20/2016 11:04 EDT) Color YELLOW [facility] Clarity, UA CLOUDY [facility] Glucose Neg Neg [facility] Bilirubin Neg Neg [facility] Ketones Neg [facility] Specific [place] >=1.030 1.001 - 1.035 [facility] Blood 2+ (A) [facility] pH 6.0 4.6 - 8.0 [facility] Protein 2+ (A) [facility] Urobilinogen 0.2 0.2 - 1.0 [facility] E.U./dl LABORATORY SERVICES Nitrite Pos (A) [facility] Leuk Esterase 1+ (A) [facility] LABORATORY director custom ID [id number]: [facility] Test performed at LABORATORY Family Practice SERVICES Walk in Care Specimen Urine (substance) - Urine Performing Organization Address City/State/ZIP Code Phon e Number [facility] [address] [place] [address] SERVICES (ABNORMAL) URINE MICROSCOPIC ONLY (01/20/2016 10:43 EDT) WBC, UA 10 to 50 0 - 5 /HPF [facility] RBC, UA 10 to 50 0 - 5 /HPF [facility] Squam Epithel, UA Few (A) None seen [facility] Renal Epithel, UA None seen None seen [facility] Bacteria, UA Frequent (A) None seen [facility] Crystals, UA None seen /HPF [facility] Hyaline Casts, UA None seen /LPF [facility] UA Comment Microscopic results [facility] Comment: LABORATORY are unreliable on SERVICES urines unrefrig >2hrs or refrig >8hrs. Mucus, UA PresentComment: [facility] Performed at [facility], SERVICES [place], [place] Specimen Urine (substance) - Urine Performing Organization Address City/[facility] Phon e Number [facility] [address] [place] [address] SERVICES TEST, URINE (01/20/2016 10:43 EDT) Result- Neg Neg [facility] Test, Ur Comment: LABORATORY NOTE: SERVICES False negative results may occur in women who are beyond 5-8 weeks gestation. Diagnosis of should be based on a correlation of test results with typical clinical signs and symptoms. Performed at [facility], [place], [place] Specimen Urine (substance) - Urine Performing Organization Address City/[facility] Phon e Number [facility] [address] [place] [address] SERVICES documented in this encounter Visit Diagnoses Diagnosis Dysuria - Primary Urinary tract infection in female documented in this encounter Care Teams Refinery Operator Vapor Recovery Unit Relationship Specialty Start Date End Date Ralph Bowman MD PCP - General 11/27/14 02/07/18 documented as of this encounter
--- OUTSIDE RECORDS SUMMARY | 2021-10-28 15:09 | XMS_ITS | Encounter Summary ---
:1990 Author Organization [facility] Address [address] [place] [address] Care Team Providers Name Role Phone Ralph Bowman MD Primary Care Provider Unavailable Reason for Visit Reason Onset Date Comments No Show 02/25/2015 Encounter Details Date Type Department Care Team Description 02/25/2015 Telephone [facility] Ralph Izaguirre No Show Medicine - Dylan Allred MD [address] [place] [phone] Social History Tobacco Use Types Packs/Day [...] Notes Telephone Encounter - Teresa El - 02/25/2015 1545 EST Attempted to reach patient regarding a missed appointment, no answer, no voice mail. documented in this encounter Plan of Treatment Not on filedocumented as of this encounter Visit Diagnoses Not on filedocumented in this encounter Care Teams Oil Field Rig Builder Relationship Specialty Start Date End Date Ralph Bowman MD PCP - General 11/27/14 02/07/18 documented as of this encounter
--- OUTSIDE RECORDS SUMMARY | 2021-10-28 15:09 | XMS_ITS | Encounter Summary ---
:1990 Author Organization [facility] Address [address] [place] [address] Care Team Providers Name Role Phone Ralph Bowman MD Primary Care Provider Unavailable Reason for Visit Reason Onset Date Comments Toe Pain 10/27/2015 Encounter Details Date Type Department Care Team Description 10/27/2015 Telephone [facility] Merlin Nelson MD Toe Pain [address] [phone] (Wo rk) Social History Tobacco Use [...] Telephone Encounter - Cara Cleveland LPN - 10/27/2015 1432 EDT Patient was seen @ walk-in care facility. No further f/u scheduled until 11/24 elephone Encounter - Karis Love RN - 10/27/2015 0917 EDT Message left for patient to return my call. elephone Encounter - Merlin Castro - 10/27/2015 0643 EDT Running this evening and caught toe on wire fence. Second toe on right foot. Instant pain and black and blue. Skin intact but does wonder if bone is close to the skin at distal joint. Does not look crooked. She has used ice and elevation. Advised that ED visit would be optimal as this could represent a dislocation or displaced fracture which would be more easily repositioned if done sooner. She was more comfortable waiting until the morning and going to the urgent care. Discussed signs and symptoms with which to be seen overnight if she does indeed decide to not present now. Merlin Castro MD 10/27/2015 6:47 documented in this encounter Plan of Treatment Not on filedocumented as of this encounter Visit Diagnoses Not on filedocumented in this encounter Care Teams Food Technology Teacher Relationship Specialty Start Date End Date Ralph Bowman MD PCP - General 11/27/14 02/07/18 documented as of this encounter
--- OUTSIDE RECORDS SUMMARY | 2021-10-28 15:09 | XMS_ITS | Encounter Summary ---
:1990 Author Organization [facility] Address [address] [place] [address] Care Team Providers Name Role Phone Ralph Bowman MD Primary Care Provider Unavailable Reason for Visit Reason Comments Gastroesophageal Reflux Renetta is here today for a routien follow-up regarding the use of her medication Encounter Details Date Type Department Care Team Description 09/01/2015 Office Visit [facility] Unknown, Prov MD nora Gastroesophageal reflux disease, esophag itis presence not specified (Primary Dx); Family Medicine - Maycol Cornell MD [address] [place] [phone] [address] Social History Tobacco Use Types [...] Sign Reading Time Taken Comments Blood Pressure 106/66 09/01/2015 1505 EDT Pulse 78 09/01/2015 1505 EDT Temperature 36.3 ??C (97.4 ??F) 09/01/2015 1505 EDT Respiratory Rate - - Oxygen Saturation - - Inhaled Oxygen Concentration - - Weight 86.2 kg (190 lb) 09/01/2015 1505 EDT Height 162.6 cm (5' 4) 09/01/2015 1505 EDT Body Mass Index 32.61 09/01/2015 1505 EDT documented in this encounter Functional Status [...] (ZOFRAN) 4 mg Take 1 Tab by 30 Tab 1 016 04/24/2016 tabletIndications: Nausea mouth daily as needed for Nausea. pantoprazole (PROTONIX) 40 Take 1 Tab by 60 Tab 2 201504/24/2016 mg tabletIndications: mouth daily. Gastroesophageal reflux disease, esophagitis presence not specified documented in this encounter Progress Notes Gallo Rodgers MD - 09/03/2015 4208 EDT Attestation statement for patient not seen by attending: I discussed the patient with the resident/fellow at the time of the visit and agree with the findings and the plan of care documented in the resident's/fellow's note. Gallo Rodgers MD Family Medicine Attending 09/03/2015 11:38 Maycol Lovett MD - 09/01/2015 1521 EDT Subjective: Patient ID: Renetta Bradley is an 25 y.o. female. Chief Complaint Patient presents with ??? Gastroesophageal Reflux Renetta is here today for a routien follow-up regarding the use of her medication HPI Comments: 25 y.o. Woman presents for follow up regarding epigastric pain, seen 07/09/2015 for same, had reported pain following meals, intermittent nausea. Tried TUMs, Zantac, and Pepto-bismal with limited relief. Labs obtained, including H Pylori, CMP, and CBC were unremarkable. Prescribed Prilosec, now reports near complete resolution of abdominal pain but still experiencing intermittent nausea approximately 2x/week that lasts a few hours. Gastroesophageal Reflux Associated symptoms include nausea. Pertinent negatives include no constipation, diarrhea, fever, vomiting or weight loss. Patient Active Problem [...] 1 CAP BY MOUTH DAILY 30 Each 3 ??? LEVONORGESTREL (MIRENA IU) by Intrauterine route. No current facility-administered medications on file prior to visit. Allergies Allergen Reactions ??? Sulfa (Sulfonamide Antibiotics) Anaphylaxis ??? Bee Pollens Anaphylaxis Social History Substance Use Topics ??? Smoking status: Former Smoker -- 13 years Types: Cigarettes Quit date: 05/10/2015 ??? Smokeless tobacco: Never Used ??? Alcohol Use: 0.0 - 0.6 oz/week 0-1 Standard drinks or equivalent per week Comment: occasion Review of Systems Constitutional: Negative for fever, chills, weight loss, malaise/fatigue and diaphoresis. Eyes: Negative. Respiratory: Negative. Gastrointestinal: Positive for nausea. Negative for heartburn, vomiting, abdominal pain, diarrhea, constipation and blood in stool. Skin: Negative. Neurological: Negative for weakness. - See HPI Objective: BP 106/66 mmHg Pulse 78 Temp(Src) 36.3 ??C (97.4 ??F) (Oral) Ht 162.6 cm (64) Wt 86.183 kg (190 lb) BMI 32.60 kg/m2 LMP 08/30/2015 (Exact Date) Physical Exam Constitutional: She is oriented to person, place, and time. She appears well- developed and well-nourished. No distress. HENT: Head: Normocephalic and atraumatic. Eyes: Right eye exhibits no discharge. Left eye exhibits no discharge. No scleral icterus. Cardiovascular: Normal rate, regular rhythm and normal heart sounds. Pulmonary/Chest: Effort normal and breath sounds normal. Abdominal: Soft. Bowel sounds are normal. She exhibits no distension and no mass. There is no tenderness. There is no rebound and no guarding. Neurological: She is alert and oriented to person, place, and time. Skin: Skin is warm and dry. She is not diaphoretic. Vitals reviewed. Assessment and plan: Renetta was seen today for gastroesophageal reflux. Diagnoses and all orders for this visit: Gastroesophageal reflux disease, esophagitis presence not specified: Significant improvement, continue Protonix. Orders: - pantoprazole (PROTONIX) 40 mg tablet; Take 1 Tab by mouth daily. Nausea: Intermittent, will begin Zofran once daily as needed. Advised to stay well-hydrated, return if symptoms persist or progress. Orders: - ondansetron (ZOFRAN) 4 mg tablet; Take 1 Tab by mouth daily as needed for Nausea. Kayla Keith - 09/01/2015 1511 EDT Patient Education Topic: Appointment of a Health Care Agent Method: Handout, Verbal Taught to: Patient Barriers: None Outcomes: independent and verbalized understanding documented in this encounter Plan of Treatment Not on filedocumented as of this encounter Visit Diagnoses Diagnosis Gastroesophageal reflux disease, esophag itis presence not specified - Primary Nausea Nausea alone documented in this encounter Discontinued Medications Medication Sig Discontinue Reason Start Date End Date pantoprazole (PROTONIX) 40 Take 1 Tab by Reorder 07/09/2015 09/01/2015 mg tabletIndications: mouth daily. Epigastric pain documented as of this encounter Care Teams Supervisor Vendor Quality Relationship Specialty Start Date End Date Ralph Bowman MD PCP - General 11/27/14 02/07/18 documented as of this encounter
--- OUTSIDE RECORDS SUMMARY | 2021-10-28 15:09 | XMS_ITS | Encounter Summary ---
:1990 Author Organization [facility] Address [address] [place] [address] Care Team Providers Name Role Phone Ralph Bowman MD Primary Care Provider Unavailable Reason for Visit Reason Comments Laceration Lac to R hand from a can. La st tetanus in 2005. Encounter Details Date Type Department Care Team Description 05/04/2015 Emergency [facility] Farhat Morfin PA-C [address] [place] [address] Laceration of hand, Emergency Department - Emergency, MD Jeff right, initial [facility] encounter (Primary Dx) [address] [place] [address] Social History Tobacco Use Types [...] Sign Reading Time Taken Comments Blood Pressure 148/72 05/04/20152121 EST Pulse - - Temperature 36.5 ??C (97.7 ??F) 05/04/20152121 EST Respiratory Rate 14 05/04/20152121 EST Oxygen Saturation 100% 05/04/20152121 EST Inhaled Oxygen Concentration - - Weight - - Height - - Body Mass Index - - documented in this encounter Functional Status Cognitive Status Response Date of Assessment Because of a physical, mental, or emotional condition, do Ye s 05/14/2011 you have serious difficulty concentrating, remembering, or making decisions? (5 years old or older) documented as of this encounter Discharge Instructions Chiquis Collins PA - 05/04/2015 Do not soak your hand nor apply antibiotic ointment. Wash gently and pat dry. Follow up if any signs of infection. AttachmentsThe following attachments cannot be sent through Care Everywhere. LACERATIONS: ADHESIVES ([place])documented in this encounter Medications at Time of [...] (MIRENA by Intrauterine 0 04/24/2016 IU) route. varenicline (CHANTIX Take one 0.5mg tablet 53 Tab 0 04/0906/02/2015 STARTING MONTH BOX) 0.5 once daily x 3 days mg (11)- 1 mg (42) then take one 0.5mg tablet tablet twice daily x 4 days then take one 1mg tablet twice daily documented as of this encounter Discharge Disposition Disposition Code Departure Means Destination Home or Self Care Car Home documented in this encounter ED Notes Chiquis Morfin PA - 05/04/2015 2235 EST Images from the original note were not included. DOS: 05/04/2015 Chief Complaint Patient presents with ??? Laceration Lac to R hand from a can. Last tetanus in 2005. HPI The patient is a 25 y.o. female who presents today with Laceration HPI Patient accidentally cut her right hand on the edge of the can. Noted significant bleeding at the time which she was able to stop with some compression then resumed bleeding again this happened a few different times. Patient called to recommended she present here for evaluation. No active bleeding currently Review of Systems Review of Systems Constitutional: Negative for fever, activity change and fatigue. HENT: Negative. Eyes: Negative. Respiratory: Negative. Cardiovascular: Negative. Gastrointestinal: Negative. Negative for nausea. Musculoskeletal: Negative. Skin: Positive for wound. Negative for color change and rash. All other systems reviewed and are negative. The patient's past medical, family and social history was reviewed and updated as needed. Allergies Allergen Reactions ??? Sulfa (Sulfonamide Antibiotics) Anaphylaxis ??? Bee Pollens Anaphylaxis Vital Signs Vitals Reassessment?: Yes Temp: 36.5 ??C (97.7 ??F) Heart Rate: 80 BPM Resp: 14 SpO2: 100 % BP: (!) 148/72 mmHg BP Device: BP Machine O2 Device: None (Room air) Physical Exam Constitutional: She is oriented to person, place, and time. She appears well- developed and well-nourished. No distress. HENT: Head: Normocephalic. Eyes: EOM are normal. Neck: Normal range of motion. Pulmonary/Chest: Effort normal. No respiratory distress. Musculoskeletal: Right hand: She exhibits laceration. She exhibits normal range of motion, no tenderness, no bony tenderness, normal capillary refill, no deformity and no swelling. Normal sensation noted. Normal strength noted. Hands: Neurological: She is alert and oriented to person, place, and time. Skin: Skin is warm and dry. She is not diaphoretic. Nursing note and vitals reviewed. RESULTS EKG orders: None Radiology orders: None ED Lab Results Labs Reviewed - No data to display Procedures ED COURSE A medical screening exam was performed. Patient washed hand well. Dermabond was applied by myself, patient tolerated procedure well no active bleeding. Patient to follow-up if any signs of infection such as increasing pain redness swelling or pus. ASSESSMENT AND PLAN Final diagnoses: None DISPOSITION: No disposition on file The patient's pain was managed to an adequate level weighing risk vs. benefit of further medications. Upon departure from the Emergency Department, the patient's pain was 0 on a zero to ten scale. Condition at departure from the Emergency Department: Improved PCP: Ralph Bowman MDM Number of Diagnoses or Management Options Laceration of hand, right, initial encounter: Diagnosis management comments: 3 Dell Mai was available for supervision. 05/04/2015 22:39 No flowsheet data found. documented in this encounter Plan of Treatment Not on filedocumented as of this encounter Visit Diagnoses Diagnosis Laceration of hand, right, initial encou nter - Primary documented in this encounter Care Teams Vaccine Specialist Relationship Specialty Start Date End Date Ralph Bowman MD PCP - General 11/27/14 02/07/18 documented as of this encounter
--- OUTSIDE RECORDS SUMMARY | 2021-10-28 15:09 | XMS_ITS | Encounter Summary ---
:1990 Author Organization [facility] Address [address] [place] [id number] Care Team Providers Name Role Phone Ralph Bowman MD Primary Care Provider Unavailable Reason for Visit Reason Comments Toe Injury Encounter Details Date Type Department Care Team Description 10/27/2015 Hospital Encounter [facility] Fox MD [address] [place] [address] Pain in toe of right Urgent Care - Heaven Mace, Provider, foot (Primary Dx) [address] [address] Social History Tobacco Use Types Packs/Day Years [...] Sign Reading Time Taken Comments Blood Pressure 103/65 10/27/2015 09 EDT Pulse 72 10/27/2015 09 EDT Temperature 36.8 ??C (98.3 ??F) 10/27/2015 09 EDT Respiratory Rate 16 10/27/2015 0929 EDT Oxygen Saturation - - Inhaled Oxygen [...] documented as of this encounter Discharge Instructions Khadar Graves MD - 10/27/2015 Your toe pain is most likely due to a contusion. You have a small amount of swelling which is contributing to the pain. It is less likely you have a broken bone. We discussed performing an x-ray, and ultimately decided not to. You should consider having an x-ray if your symptoms persist You may tape that toe to another toe for support. You may also use the surgical shoe to support the foot. You may continue your regular activities, ease back into them gradually as you are able. Elevate the toe when not using it. Ice the foot 3 times per day. Follow up with your regular doctor if her symptoms don't improve or worsen. AttachmentsThe following attachments cannot be sent through Care Everywhere.FOOT PAIN (YI)documented in this encounter Medications at Time of [...] 1 0 10/13/2015 11/25/2015 capsuleIndications: DAILY Anxiety LEVONORGESTREL (MIRENA by Intrauterine 0 04/24/2016 IU) route. ondansetron (ZOFRAN) 4 mg Take 1 Tab by mouth 30 Tab 1 0 09/01/2015 04/24/2016 tabletIndications: Nausea daily as needed for Nausea. pantoprazole (PROTONIX) Take 1 Tab by mouth 60 Tab 2 04/24/2016 40 mg tabletIndications: daily. Gastroesophageal reflux disease, esophagitis presence not specified documented as of this encounter Discharge Disposition Disposition Code Departure Means Destination Home or Self Care documented in this encounter ED Notes Khadar Perrin MD - 10/27/2015 1046 EDT Images from the original note were not included. DOS: 10/27/2015 Chief Complaint Patient presents with ??? Toe Injury The patient is a 25 y.o. female who presents today with Toe Injury HPI Comments: Renetta presents today for concern of injury to the right second toe that occurred yesterday. She notes she caught it on a piece of fencing while she was walking. She has pain now that persists, worsens when she walks. There was some bruising initially, but it is improved now. She did have some tingling but that has also improved. She has no chronic foot problems The history is provided by the patient. No foreign languages professor was used. Toe Injury Lower extremity pain location: Right second toe. Time since incident: 14.75 hours ago. Injury: yes Mechanism of injury comment: Caught on a piece of fencing Pain details: Quality: Aching Pain severity now: 10 with walking. Onset quality: Sudden Subjective pain progression: pain persists. Chronicity: New Prior injury to area: No Relieved by: rest. Exacerbated by: Walking on the area. Associated symptoms: numbness (last evening- better now), swelling and tingling (last evening) Associated symptoms: no decreased ROM and no muscle weakness Associated symptoms comment: Bruising- better Review of Systems Musculoskeletal: Right second toe pain Skin: Positive for color change (bruising, now improved). No current facility-administered medications for this encounter. [...] Maternal Grandfather ??? Cancer Paternal Grandmother BP 103/65 mmHg Pulse 72 Temp(Src) 98.3 ??F (36.8 ??C) (Temporal) Resp 16 Physical Exam Constitutional: She is oriented to person, place, and time. She appears well- developed and well-nourished. No distress. HENT: Head: Normocephalic and atraumatic. Mouth/Throat: Mucous membranes are normal. Pulmonary/Chest: Effort normal. No respiratory distress. Musculoskeletal: Right ankle: Normal. Right foot: There is tenderness and bony tenderness. There is normal range of motion. Feet: Neurological: She is alert and oriented to person, place, and time. She is not disoriented. No sensory deficit. Gait normal. Skin: Skin is warm, dry and intact. No pallor. Psychiatric: She has a normal mood and affect. Her speech is normal and behavior is normal. Pleasant, calm Nursing note and vitals reviewed. Consult orders: None PCP: Ralph Bowman No results found for this visit on 10/27/15. Radiology orders: None Imaging Results None No orders to display Procedures URGENT CARE COURSE A medical screening exam was performed. Patient is a 25 y.o. female with right second toe pain afterinjury yesteday. Continues with pain. No neurovascular compromise. No complication or infection. Discussed potentially performing x-ray, however fracture is overall less likely. Ultimately we decided to not perform imaging. Would consider if symptoms persist. Patient to continue conservative management as we discussed for toe sprain. You may do taping as well as postoperative surgical shoe. To elevate, rest and ice foot. To follow up if acutely worsening pain or complication as we discussed. To follow up with PCP if failing to improve or if worsening. Questions and concerns were answered. Patient expressed understanding of plan. Patient appreciative of care. ASSESSMENT AND PLAN Final diagnoses: Pain in toe of right foot - Second toe No supervision required. DISPOSITION: Discharged The patient's pain was managed to an adequate level weighing risk vs. benefit of further medications. Upon departure from [facility], the patient's pain was 7 on a zero to ten scale. Condition at departure from the [facility] : Stable MDM Signed: Khadar Perrin MD 10/28/2015 18:58 Noemy Villaseñor RN - 10/27/2015 0931 EDT Pt was running around back yard w/ child last night, stepped on metal fencing and right second toe got caught in fencing and wrapped around toe. Toe is tender to palpation, and painful when walking. Pt reports bruising and swelling last night, has been icing and using aleve, w/ relief. Was advised by PCP to come to clinic for evaluation. documented in this encounter Plan of Treatment Not on filedocumented as of this encounter Visit Diagnoses Diagnosis Pain in toe of right foot - Primary Pain in limb documented in this encounter Orders General Supply Count Last Ordered Date First Ordered Date SURGICAL SHOE 1 10/27/2015 documented in this encounter Care Teams Officer Lieutenant Relationship Specialty Start Date End Date Ralph Bowman MD PCP - General 11/27/14 02/07/18 documented as of this encounter
--- OUTSIDE RECORDS SUMMARY | 2021-10-28 15:09 | XMS_ITS | Encounter Summary ---
:1990 Author Organization [facility] Address [address] [place] [address] Care Team Providers Name Role Phone Ralph Bowman MD Primary Care Provider Unavailable Reason for Visit Reason Comments Other Encounter Details Date Type Department Care Team Description 05/24/[address] [facility] Dwayne Barbosa MD Other Medicine - [address] [phone] [place] [address] [phone] Social History Tobacco Use Types Packs/Day Years [...] TAKE 1 CAP BY MOUTH 30 Cap 0 0 05/24/2015 06/02/2015 capsule DAILY documented in this encounter Miscellaneous Notes Telephone Encounter - Ellie Smith - 05/24/2015 1610 EST Patient is scheduled with Dr. Morgan on 06/02. elephone Encounter - Khushboo eLe, RN - 05/24/2015 1551 EST ALISTAIR 07/31/14 Per that office visit note, pt was to follow up in one month for anxiety. Last prescription for fluoxetine given 07/31/14 for 30 with 3 refills. Pt needs follow up appointment scheduled. documented in this encounter Plan of Treatment Not on filedocumented as of this encounter Visit Diagnoses Not on filedocumented in this encounter Discontinued Medications Medication Sig Discontinue Reason Start Date End Date FLUoxetine (PROZAC) 20 mg Take 1 Cap by mouth Reorder 08/01/19 15 05/24/2015 capsule daily documented as of this encounter Care Teams Brake Mechanic Relationship Specialty Start Date End Date Ralph Bowman MD PCP - General 11/27/14 02/07/18 documented as of this encounter
--- OUTSIDE RECORDS SUMMARY | 2021-10-28 15:09 | XMS_ITS | Encounter Summary ---
:1990 Author Organization [facility] Address [address] [place] [address] Care Team Providers Name Role Phone Ralph Bowman MD Primary Care Provider Unavailable Reason for Visit Reason Onset Date Comments Nausea 07/03/2017 Diarrhea 07/03/2017 Fatigue 07/03/2017 Neck Pain 07/03/2017 Headache 07/03/2017 Encounter Details Date Type Department Care Team Description 07/03/2017 Telephone [facility] Ralph Bowman Nausea; Diarrhea; Family Medicine - MD [place] Fatigue; [place] Pain; [place] [facility] [address] [place] [id number] Social History Tobacco Use Types Packs/Day Years [...] this encounter Miscellaneous Notes Telephone Encounter - Khushboo Lee RN - 07/03/2017 1545 EDT Spoke with patient. She is currently down in the [facility]. Patient reports she started with extreme nausea on 06/29/17 which has continued through today. Feels like every time she eats, she could throw up. Has had some vomiting and diarrhea but states nothing alarming. Is only able to drink ian renetta as even water makes her nauseated. Has also had a headache for the past 2 days. Has taken headache medication which takes the edge off.Pain is an intense aching at the base of her skull. No fever or chills. Feels extremely fatigued. Advised patient she should be evaluated. She will go to either an Urgent Care Center or ED. elephone Encounter - Ellie Smith - 07/03/2017 1525 EDT Reason for Call: Nausea; Diarrhea; Fatigue; Neck Pain; and Headache Summary/Symptoms: Patient is calling asking to speak to a nurse with the above complaints stating she is unsure as to whether she should be seen. Please advise. Onset and Duration? Nausea started Sunday, headache x2 days Appointment Offered? No Ellie Smith 07/03/2017 15:27 documented in this encounter Plan of Treatment Not on filedocumented as of this encounter Visit Diagnoses Not on filedocumented in this encounter Care Teams Dock Loader Relationship Specialty Start Date End Date Ralph Bowman MD PCP - General 11/27/14 02/07/18 documented as of this encounter
--- OUTSIDE RECORDS SUMMARY | 2021-10-28 15:09 | XMS_ITS | Encounter Summary ---
:1990 Author Organization [facility] Address [address] [place] [id number] Care Team Providers Name Role Phone Ralph Bowman MD Primary Care Provider Unavailable Reason for Visit Reason Comments Elbow Pain 1 day hx left elbow pain dir ectly over the elbow joint. Denies hx injury or trauma, swelling, numbnes s/tingling LUE Encounter Details Date Type Department Care Team Description 11/25/2016 Hospital Encounter [facility] Omer Hillman, GAM[employer] FACILITIES OPERATOR [address] [place] [id number] Elbow sprain, left, Urgent Care - [facility], Provider, initial encounter [facility] (Primary Dx) [address] [place] [address] Social History Tobacco Use Types Packs/Day Years [...] Sign Reading Time Taken Comments Blood Pressure 109/69 11/25/2016 1555 EDT Pulse 74 11/25/2016 1555 EDT Temperature 36.8 ??C (98.3 ??F) 11/25/2016 1555 EDT Respiratory Rate 16 11/25/2016 1555 EDT Oxygen Saturation - - Inhaled Oxygen [...] as of this encounter Discharge Diagnoses Diagnosis S53.402A Unspecified sprain of left elbo w, initial encounter-S53.402A[ICD-10-CM] documented in this encounter Discharge Instructions AttachmentsThe following attachments cannot be sent through Care Everywhere. ELBOW SPRAIN ([place]STR[place])documented in this encounter Medications at Time of Discharge Medication Sig Dispensed Refills Start Date End Date ibuprofen (MOTRIN) 400 Take 400 mg by mouth 0 mg tablet every 4 hours. albuterol 90 Inhale 1 Puff as 1 Inhaler 0 07/31/20142019 mcg/actuation inhaler directed every 6 hours as needed for Wheezing FLUoxetine (PROZAC) 40 Take 1 Cap by mouth 90 Cap 2 10/0801/19/2017 mg capsule daily. hydrOXYzine (ATARAX) 25 Take 25 mg by mouth 3 0 07/02/2019 mg tablet times daily. PENICILLIN V POTASSIUM Take by mouth. 0 07/04/2017 ORAL documented as of this encounter Discharge Disposition Disposition Code Departure Means Destination Home or Self Care documented in this encounter ED Notes Loretta Hillman NP - 11/25/2016 1715 EDT DOS: 11/25/2016 Chief Complaint Patient presents with ??? Elbow Pain 1 day hx left elbow pain directly over the elbow joint. Denies hx injury or trauma, swelling, numbness/tingling LUE The patient is a 26 y.o. female who presents today with Elbow Pain (1 day hx left elbow pain directly over the elbow joint. Denies hx injury or trauma, swelling, numbness/tingling LUE) HPI Comments: Patient has been doing a lot of floor exercise, yoga, one-armed planks, etc., then waslifting a friend with her left arm yesterday and her arm has slowly increased in pain over the last 24 hours. No specific injury. Difficulty flexing and extending her left elbow. She has tried advil and ibuprofen, but was working today at [employer] and had a lot of difficulty working With the pain. No numbness, tingling, or weakness. PMH: non-contributory SH: smoker FH: non-contributory The history is provided by the patient. Review of Systems Constitutional: Negative for chills, fatigue and fever. All other systems reviewed and are negative. [...] PENICILLIN V POTASSIUM ORAL Take by mouth. Allergies Allergen Reactions ??? Sulfa (Sulfonamide Antibiotics) [...] Maternal Grandfather ??? Cancer Paternal Grandmother BP 109/69 Pulse 74 Temp 98.3 ??F (36.8 ??C) Resp 16 Physical Exam Constitutional: She appears well-developed and well-nourished. She appears distressed (holding left arm close to body). Musculoskeletal: Left elbow: She exhibits swelling (very mild). She exhibits normal range of motion, no effusion, nodeformity and no laceration. Tenderness found. Medial epicondyle and lateral epicondyle tenderness noted. No radial head and no olecranon process tenderness noted. Minimal swelling or redness, full ROM if done very slowly, but this is very painful. Full NV status and sensation left forearm and hand Nursing note and vitals reviewed. Consult orders: None PCP: Ralph Bowman No results found for this visit on 11/25/16. Radiology orders: ELBOW 3 OR MORE VIEWS Imaging Results ELBOW 3 OR MORE VIEWS (Final result) Result time: 11/25/16 18:13:51 Final result Narrative: ELBOW 3 OR MORE VIEWS 11/25/2016 5:25 PM HISTORY: Elbow pain, no xray, elbow pain, overuse Comparison: Left elbow radiographs October 26, 2014 Technique: Frontal, lateral, internal and externally rotated views of the left elbow Findings: There is no visible fracture or malalignment. No soft tissue abnormality is identified. IMPRESSION: Normal exam I have personally reviewed the images and the above interpretation and agree with the findings. Preliminary result Narrative: PRELIMINARY RESIDENT REPORT ELBOW 3 OR MORE VIEWS 11/25/2016 5:25 PM HISTORY: Elbow pain, no xray, elbow pain, overuse Comparison: Left elbow radiographs October 26, 2014 Technique: Frontal, lateral, internal and externally rotated views of the left elbow Findings: There is no visible fracture or malalignment. No soft tissue abnormality is identified. IMPRESSION: Normal exam I have personally reviewed the images and the above interpretation and agree with the findings. Preliminary result Narrative: PRELIMINARY RESIDENT REPORT ELBOW 3 OR MORE VIEWS 11/25/2016 5:25 PM HISTORY: Elbow pain, no xray, elbow pain, overuse Comparison: Left elbow radiographs October 26, 2014 Technique: Frontal, lateral, internal and externally rotated views of the left elbow Findings: There is no visible fracture or malalignment. No soft tissue abnormality is identified. No orders to display Relevant Data Procedures URGENT CARE COURSE A medical screening exam was performed. X-ray reviewed independently by me--negative for fracture orlesion. Most likely an overuse injury. We will have her rest, ice, avoid heavy lifting or repetitivemotion. If she has not improved in one week, recommended physical therapy. She will follow-up with her primary on this ASSESSMENT AND PLAN Final diagnoses: Elbow sprain, left, initial encounter Dr. Sekou Prajapati was available for consultation during my care of this patient. DISPOSITION: Discharged The patient's pain was managed to an adequate level weighing risk vs. benefit of further medications. Upon departure from [facility], the patient's pain was 5 on a zero to ten scale. Any further pain treatment will be at the discretion of the provider following up with the patient based on their clinical assessment . Condition at departure from the [facility] : Stable MDM 11/25/2016 18:41 Janneth Dewitt LPN - 11/25/2016 1612 EDT Pt presents with left elbow pain and swelling with decreased ROM x Two days. Pt states she has been working out daily as well as doing yoga and also does work that deals with repetitive motion. Site was slightly uncomfortable at onset but has increased in pain and stiffness. Pt also reports mild tingling in extremity. Skin warm,pink and dry. Alert and oriented. documented in this encounter Plan of Treatment Not on filedocumented as of this encounter Procedures Procedure Name Priority Date/Time Associated Diagnosis Comme nts ELBOW 3 OR MORE STAT 11/25/2016 17:25 Results for this VIEWS EDT procedure are i n the results section. documented in this encounter Results ELBOW 3 OR MORE VIEWS (11/25/2016 17:25 EDT) Anatomical Region Laterality Modality Other Specimen Narrative [facility] - 11/25/2016 18:13 EDT ELBOW 3 OR MORE VIEWS ??11/25/2016 5:25 PM HISTORY: ??Elbow pain, no xray, elbow pa in, overuse Comparison: Left elbow radiographs October 26, 2014 Technique: Frontal, lateral, internal and externall y rotated views of the left elbow Findings: There is no visible fracture or malalign ment. No soft tissue abnormality is identified. IMPRESSION: Normal exam I have personally reviewed the images an d the above interpretation and agree with the findings. Procedure Note Allan Hammer MD - 11/25/2016 ELBOW 3 OR MORE VIEWS 11/25/2016 5:25 PM HISTORY: Elbow pain, no xray, elbow pain , overuse Comparison: Left elbow radiographs October 26, 2014 Technique: Frontal, lateral, internal and externall y rotated views of the left elbow Findings: There is no visible fracture or malalign ment. No soft tissue abnormality is identified. IMPRESSION: Normal exam I have personally reviewed the images an d the above interpretation and agree with the findings. Performing Organization Address City/State/ZIP Code Phon e Number [facility] documented in this encounter Visit Diagnoses Diagnosis Elbow sprain, left, initial encounter - Primary documented in this encounter Administered Medications Inactive Administered Medications - up to 3 most recent administrations Medication Order MAR Action Action Date Dose Rate Site ibuprofen (MOTRIN) tablet 600 mg Given 11/25/2016 17:27 EDT 200 mg 600 mg, oral, NOW X1, 1 dose, On 11/25/16 at 1730, Routine documented in this encounter Historical Medications This list may reflect changes made after this encounter. Medication Sig Dispensed Refills Start Date End Date ibuprofen (MOTRIN) 400 mg Take 400 mg by 0 tablet mouth every 4 hours. hydrOXYzine (ATARAX) 25 mg Take 25 mg by mouth 0 07/02/2019 tablet 3 times daily. PENICILLIN V POTASSIUM Take by mouth. 0 07/04/2017 ORAL added in this encounter Active and Recently Administered Medications Times are shown in EDT. Scheduled Medication Order 11/23/2016 11/24/2016 11/25/2016 ibuprofen (MOTRIN) tablet 600 mg (COMPLETED) 1727 (Given - Provider: Janneth Akhtar LPN) 600 mg, oral, NOW X1, 1 dose, 11/25/16 at 1730, Routine documented in this encounter Orders General Supply Count Last Ordered Date First Ordered Date ARM SLING 1 11/25/2016 documented in this encounter Care Teams Shop Tech Relationship Specialty Start Date End Date Ralph Bowman MD PCP - General 11/27/14 02/07/18 documented as of this encounter
--- OUTSIDE RECORDS SUMMARY | 2021-10-28 15:09 | XMS_ITS | Encounter Summary ---
:1990 Author Organization [facility] Address [address] [place] [address] Care Team Providers Name Role Phone Ralph Bowman MD Primary Care Provider Unavailable Reason for Visit Reason Comments Anxiety 3 month fololow up for anxie ty, pt states that she is doing really well Depression pt states that she is feelin g really well Encounter Details Date Type Department Care Team Description 11/25/2015 Office Visit [facility] Cathy Crystal nt major depressive disorder, in full remission (CMS-HCC) (Primary Dx); Family Medicine - MD Manda Anxiety [address] [phone] Social History Tobacco Use Types Packs/Day Years [...] Sign Reading Time Taken Comments Blood Pressure 102/72 11/25/2015 1513 EDT Pulse 76 11/25/2015 1513 EDT Temperature - - Respiratory Rate - - Oxygen Saturation - - Inhaled Oxygen Concentration - - Weight 88 kg (194 lb) 11/25/2015 1513 EDT Height 162.6 cm (5' 4) 11/25/2015 1513 EDT Body Mass Index 33.3 11/25/2015 1513 EDT documented in this encounter Functional Status [...] as of this encounter Patient Instructions Patient InstructionsCathy Crystal MD - 11/25/2015 15:24 EDT Relaxation techniques for anxiety -may help Do relaxation exercises 10 to 20 minutes a day. You can play soothing, relaxing music while you do them, if you wish. ?? Tell others in your house that you are going to do your relaxation exercises. Ask them not to disturb you. ?? Find a comfortable place, away from all distractions and noise. ?? Lie down on your back, or sit with your back straight. ?? Focus on your breathing. Make it slow and steady. ?? Breathe in through your nose. Breathe out through either your nose or mouth. ?? Breathe deeply, filling up the area between your navel and your rib cage. Breathe so that your belly goes up and down. ?? Do not hold your breath. ?? Breathe like this for 5 to 10 minutes. Notice the feeling of calmness throughout your whole body. As you continue to breathe slowly and deeply, relax by doing the following for another 5 to 10 minutes: ?? Tighten and relax each muscle group in your body. You can begin at your toes and work your way upto your head. ?? Imagine your muscle groups relaxing and becoming heavy. ?? Empty your mind of all thoughts. You can even literally imagine the thoughts written out and erasing them from the pages of your mind ?? Let yourself relax more and more deeply. ?? Become aware of the state of calmness that surrounds you. ?? When your relaxation time is over, you can bring yourself back to alertness by moving your fingers and toes and then your hands and feet and then stretching and moving your entire body. Sometimes people fall asleep during relaxation, but they usually wake up shortly afterward. ?? Always give yourself time to return to full alertness before you drive a car or do anything that might cause an accident if you are not fully alert. Never play a relaxation tape while you drive a car. Could try some books for anxiety: Books to try: 1. Mastery of Your Anxiety and Panic by Ruth 2. Stress and Mood Management Program documented in this encounter Ordered Prescriptions Prescription Sig Dispensed Refills Start Date End Date hydrOXYzine (ATARAX) 25 Take 0.5 Tabs by 30 Tab 1 201504/24/2016 mg tabletIndications: mouth 3 times daily Anxiety as needed for Anxiety (with panic). FLUoxetine (PROZAC) 40 mg TAKE 1 CAP BY MOUTH 90 Each 3 0 11/25/2015 04/24/2016 capsuleIndications: DAILY Anxiety, Recurrent major depressive disorder, in full remission (HCC-CMS) ([facility]) documented in this encounter Progress Notes Cathy Crystal MD - 11/26/2015 0934 EDT Renetta Bradley Chief Complaint Patient presents with ??? Anxiety 3 month fololow up for anxiety, pt states that she is doing really well ??? Depression pt states that she is feeling really well SUBJECTIVE 25 y.o. female presents for f/u of anxiety and depression. She had an episode of depression a few months ago with passive SI. She has had this before, in her teen years and it was pretty bad. Her prozac was increased to 40 mg and she noted at last visit and again today a considerable improvement. She denies current depressive symptoms, denies SI, affirms some mild anxiety generally and some panic maybe 2 x per month, not unmanageable. She denies SE from the prozac. Problem list, medications, family and social history reviewed and updated if relevant in the electronic health record. REVIEW OF SYSTEMS Patient denies pain, headache, dizziness, chest pain, SOB. Affirms anxiety and depression but negative for suicidal thoughts or actions. OBJECTIVE Visit Vitals ??? BP 102/72 ??? Pulse 76 ??? Ht 162.6 cm (64) ??? Wt 88 kg (194 lb) ??? BMI 33.3 kg/m2 GEN: no distress LUNGS: clear HEART: RRR NEURO: no obvious focal deficits PSYCH: Appearance/Behavior: well-groomed, good hygiene, behavior appropriate. Speech: normal rate, rhythm, prosody. Mood: good Affect: congruent Thought content: answers questions appropriately Thought process: linear Judgment/Insight: appears intact ASSESSMENT/PLAN Renetta was seen today for anxiety and depression. Diagnoses and all orders for this visit: Recurrent major depressive disorder, in full remission Discussed symptoms to watch out for, as she has had episodes before, this is something she may struggle with throughout her life on and off. Orders: - FLUoxetine (PROZAC) 40 mg capsule; TAKE 1 CAP BY MOUTH DAILY Anxiety Since she has some panic with this, I offered atarax, which she will try for severe anx or panic. - FLUoxetine (PROZAC) 40 mg capsule; TAKE 1 CAP BY MOUTH DAILY - Start hydrOXYzine (ATARAX) 25 mg tablet; Take 0.5 Tabs by mouth 3 times daily as needed for Anxiety (with panic). I spent a total of 25 minutes in face to face time with this patient today and 25 minutes of that time was spent in counseling and coordination of care as described in the progress note. Followup: Return if symptoms worsen or fail to improve. Cathy Crystal MD 11/26/2015 9:34 [id number] documented in this encounter Plan of Treatment Not on filedocumented as of this encounter Visit Diagnoses Diagnosis Recurrent major depressive disorder, in full remission ([facility]) (HCC) - Primary Anxiety Anxiety state, unspecified documented in this encounter Discontinued Medications Medication Sig Discontinue Reason Start Date End Date FLUoxetine (PROZAC) 40 mg TAKE 1 CAP BY MOUTH Reorder 10/13/19 16 11/25/2015 capsuleIndications: DAILY Anxiety documented as of this encounter Care Teams Occupational Therapy Assist Relationship Specialty Start Date End Date Ralph Bowman MD PCP - General 11/27/14 02/07/18 documented as of this encounter
--- OUTSIDE RECORDS SUMMARY | 2021-10-28 15:09 | XMS_ITS | Encounter Summary ---
:1990 Author Organization [facility] Address [address] [place] [address] Care Team Providers Name Role Phone Ralph Bowman MD Primary Care Provider Unavailable Reason for Visit Reason Comments Contraception nausea x 2 months - worse in last few weeks, pain with intercourse, pressure on abd causes pelvi c cramps, never tried to feel strings Encounter Details Date Type Department Care Team Description 06/09/2015 Office Visit [facility] Erica Brock, ASSOCIATE DIRECTOR REGULATORY AFFAIRS Pelvic pain in female (Primary Dx); Women's Services - [address] [place] [address] Pap sme ar for cervical cancer screening [facility] [address] [place] [address] Stella, [place] [phone] (Wo rk) Social History Tobacco Use Types [...] Sign Reading Time Taken Comments Blood Pressure 102/68 06/09/2015 1005 EST Pulse - - Temperature - - [...] Sig Dispensed Refills Start Date End Date naproxen sodium (ANAPROX) Take 1 Tab by mouth 30 Tab 0 0 06/09/2015 07/30/2015 550 mg tablet every 12 hours. documented in this encounter Progress Notes Megan Martines RN - 06/09/2015 1138 EST PC/Pt: patient's insurance will only accept Anaprox 500 mg. Verbal OK given to RJ/pharmacist at [facility]. Dee Bartlett FNP - 06/09/2015 1015 EST S: Patient is a 25 y/o female here today with c/o pelvic pain intermittently, with accompanyingnausea x 2 months. Initially thought the nausea may be related to her Chantix for smoking cessation.However, she stopped this 2 weeks ago and still has the nausea. Mirena IUD in place since 03/2011, 6weeks after delivery of her son, who is now 4. Mirena due to be changed by end of this year. Reportspain during sexual IC to be extruciating with cramping sensation. Stops the IC and difficult for herto want to try to have IC knowing she will have pain. Pain during IC is a 8/10. Will also get pain if putting pressure on belly. 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 Hoskins ve tried Advil, doesn't seem to help and doesn't last. Denies chills, fever, vomiting or diarrhea. Reports being dx'd with IBS. Has BM every day. Pt gets a monthly period and can last 2-7 days. Had chlamydia in past. 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 O: Pelvic exam: VULVA: normal appearing vulva with no masses, tenderness or lesions, VAGINA: normal appearing vagina with normal color and discharge, no lesions, CERVIX: normal appearing cervix withoutdischarge or lesions, IUD strings 3 cm from os, UTERUS: uterus is normal size, shape, consistency and nontender, anteverted, ADNEXA: normal adnexa in size, nontender and no masses and PAP: Pap smear done today, thin-prep method, DNA probe for chlamydia and GC obtained. A: Patient is a 25 y/o woman with intermittent pelvic pain x 2 months ranging from 6-8/10 scale and is worse with sexual IC. Accompanied by nausea. UPT is negative. Pelvic exam normal today and no cervical motion tenderness. Will evaluate with pelvic US and treat pain with Naproxen DS. Abd: + BS x 4. No hepatomegaly. Nontender x 4 quadrants. P: Transvaginal pelvic US ordered to evaluate pain. Thin prep pap and gc done. Vagex done. Anaprox DS 550mg orally every 12 hours prn. Disp #30 with no refills. UPT is negative. CBC and CRP ordered. SANDY Barfield I spent a total of 25 minutes in face to face time with this patient and 20 minutes of that time wasspent in counseling and coordination of care as described in the progress note. documented in this encounter Plan of Treatment Scheduled Orders Name Type Priority Associated Diagnoses Order S chedule PAP TEST- ORDER ONLY Pathology Routine Pap smear for cervic al Ordered: 06/09/2015 cancer screening documented as of this encounter Procedures Procedure Name Priority Date/Time Associated Comments Diagnosis ZZVAGINITIS EXAM Routine 06/09/2015 10:38 Pelvic pain in Resul ts for this EST female procedure are i n the results section. CHLAMYDIA/N. Routine 06/09/2015 10:32 Pelvic pain in Results f or this GONORRHOEAE AMPLIFIED EST female proced ure are in RNA, THINPREP the results section. POCT TEST, Routine 06/09/2015 10:17 Pelvic pain in R esults for this CLINITEK EST female procedure are i n the results section. documented in this encounter Results C REACTIVE PROTEIN (06/09/2015 10:48 EST) C Reactive Protein <7.0 <10.0 mg/L [facility] Comment: LABORATORY SERVICES Note units change to mg/L. Values will be 10 fold higher than with previous units of mg/dl. Specimen Blood specimen (specimen) - Blood Performing Organization Address City/[facility]/ZIP [facility] Phon e Number [facility] LABORATORY [address] [place] [address] SERVICES HEMAGRAM (06/09/2015 10:48 EST) Pathologist Sig nature WBC 6.96 4.0 - 12.4 K/cmm [facility] LABORATORY SERVICES RBC 4.58 3.86 - 5.04 M/cmm [facility] LABORATORY SERVICES Hemoglobin 14.5 11.6 - 15.2 gm/dl [facility] LABORATORY SERVICES HCT 41.1 34.9 - 44.4 % [facility] LABORATORY SERVICES MCV 90 81 - 98 fl [facility] LABORATORY SERVICES MCH 31.7 26.7 - 33.3 pg [facility] LABORATORY SERVICES MCHC 35.3 32.1 - 35.9 gm/dl [facility] LABORATORY SERVICES RDW-CV 12.2 11.7 - 14.6 % [facility] LABORATORY SERVICES RDW-SD 40.1 37.6 - 50.3 fl [facility] LABORATORY SERVICES PLT 216 141 - 377 K/cmm [facility] LABORATORY SERVICES MPV 11.8 9.5 - 12.7 fl [facility] LABORATORY SERVICES Specimen Blood specimen (specimen) - Blood Performing Organization Address City/[facility] Phon e Number [facility] LABORATORY [address] [place] [address] SERVICES VAGINITIS EXAM (06/09/2015 10:38 EST) Gram Smear Result Many [facility] Polys LABORATORY present SERVICES Gram Smear Result No yeast seen. [facility] LABORATORY SERVICES Gram Smear Result Smear NOT consistent [facility] [address] with bacterial LABORATORY vaginosis. SERVICES Result No Trichomonas [facility] antigen detected. LABORATORY SERVICES Specimen Other (qualifier value) - Vagina Performing Organization Address [facility]/State/ZIP Code Phon e Number [facility] LABORATORY [address] [place] [address] SERVICES CHLAMYDIA/GC AMPLIFIED, THIN PREP (06/09/2015 10:32 EST) Chlamydia Result No Chlamydia [facility] trachomatis DNA LABORATORY detected by SERVICES financial investment manager mediated amplification. GC Result No Neisseria [facility] gonorrhoeae DNA LABORATORY detected by SERVICES financial investment manager mediated amplification. Specimen Other (qualifier value) - Unknown Performing Organization Address City/State/ZIP Code Phon e Number [facility] LABORATORY [address] [place] [address] SERVICES POCT TEST, CLINITEK (06/09/2015 10:17 EST) Pathologist Sig nature UPT Result Neg Neg [facility] LABORATORY top frame maker ID [id number]: [facility] Test performed at LABORATORY SERVICES [facility] Specimen Urine (substance) - Urine Performing Organization Address City/[facility]/ZIP Code Phon e Number [facility] LABORATORY [address] [place] [address] SERVICES documented in this encounter Visit Diagnoses Diagnosis Pelvic pain in female - Primary Unspecified symptom associated with fema le genital organs Pap smear for cervical cancer screening Screening for malignant neoplasm of the cervix documented in this encounter Historical Medications This list may reflect changes made after this encounter. Medication Sig Dispensed Refills Start Date End Date BISMUTH SUBSALICYLATE Take by mouth. 0 04/24/2016 (PEPTO-BISMOL ORAL) Reported on 04/24/2016 added in this encounter Care Teams Mushroom Growth Media Mixer Relationship Specialty Start Date End Date Ralph Bowman MD PCP - General 11/27/14 02/07/18 documented as of this encounter
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
--- OUTSIDE RECORDS SUMMARY | 2021-10-28 15:10 | XMS_ITS | Encounter Summary ---
:[address] [facility] Address [address] [place] [address] Care Team Providers Name Role Phone Carmela Sanchez MD Primary Care Provider Reason for Visit Reason Comments Cough x5 days. green-black plegm. chest feels heavy.voice hoarseness..nasal congestion. Encounter Details Date Type Department Care Team Description 07/24/2011 Hospital Encounter [facility] Nohemy Varela MD Urgent Care - [address] DONY DUNN [place] [phone] [place] [address] [phone] Social History Tobacco Use Types Packs/Day Years Used Date Former Smoker Cigarettes 1 7 Quit: 09/08/19 11 Smokeless Tobacco: Former User Q uit: 09/29/2010 Alcohol Use Standard Drinks/Week Comments Yes [id number] (1 standard drink = 0.6 oz pure alcohol) Food Insecurity Answer Date Recorded Within the [...] Sign Reading Time Taken Comments Blood Pressure 100/78 07/24/2011 1456 EDT Pulse 110 07/24/2011 1456 EDT Temperature 36.7 ??C (98 ??F) 07/24/2011 1456 EDT Respiratory Rate 20 07/24/2011 1456 EDT Oxygen Saturation 98% 07/24/2011 1456 EDT Inhaled Oxygen Concentration - - Weight - - Height - - Body Mass Index - - documented in this encounter Functional Status Cognitive Status Response Date of Assessment Because of a physical, mental, or emotional condition, do Ye s 05/14/2011 you have serious difficulty concentrating, remembering, or making decisions? (5 years old or older) documented as of this encounter Medications at Time of Discharge Medication Sig Dispensed Refills Start Date End Date ALBUTEROL INHL Inhale as directed as 0 05/29/2012 needed. ibuprofen (MOTRIN) 600 Take 1 Tab by mouth 90 Tab 2 05/1007/31/2014 mg tabletIndications: every 8 hours as Migraines needed for Pain. LEVONORGESTREL (MIRENA by Intrauterine 0 04/24/2016 IU) route. methocarbamol (ROBAXIN) Take 1 Tab by mouth 3 90 Tab 2 0 05/24/2011 06/22/2012 500 mg times daily as tabletIndications: Back needed. spasm pantoprazole (PROTONIX) Take 1 Tab by mouth 90 Tab 3 09/25/2011 40 mg tablet daily. documented as of this encounter Discharge Disposition Disposition Code Departure Means Destination Comments Home or Self Care Car Home Had to pic k up child at daycare and could not w ait. documented in this encounter ED Notes Rashida Velázquez RN - 07/24/2011 1502 EDT Pt has been exposed to pneumonia; 5 month old is starting to cough also. Nia Carey - 07/24/2011 1457 EDT Pt asked to change into a gown. documented in this encounter Plan of Treatment Not on filedocumented as of this encounter Visit Diagnoses Not on filedocumented in this encounter Discontinued Medications Medication Sig Discontinue Reason Start Date End Date norgestimate-ethinyl Take 1 Tab by mouth Therapy completed 05/29/19 12 07/24/2011 estradiol (ORTHO daily. TRI-CYCLEN LO) 0.18/0.215/0.25 mg-25 mcg tablet documented as of this encounter Historical Medications This list may reflect changes made after this encounter. Medication Sig Dispensed Refills Start Date End Date ALBUTEROL INHL Inhale as directed as 0 05/29/2012 needed. LEVONORGESTREL (MIRENA by Intrauterine 0 04/24/2016 IU) route. added in this encounter Care Teams Geophysical Operator Relationship Specialty Start Date End Date Carmela Sanchez MD PCP - General 07/30/08 08/13/[address] [place] [phone] documented as of this encounter
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
--- OUTSIDE RECORDS SUMMARY | 2021-10-28 15:10 | XMS_ITS | Encounter Summary ---
:1990 Author Organization [facility] Address [address] [place] [address] Care Team Providers Name Role Phone Tricia Otero Primary Care Provider Unavailable Reason for Visit Reason Comments Gynecologic Exam pt having period/ spotting f or x1 month, would like help w/ menstrual regulation Encounter Details Date Type Department Care Team Description 10/18/2011 Office Visit [facility] Daily, Maurisio Rodgers examination for venereal disease (Primary Dx); Women's Services - [facility] [employer] Vaginal discharge; [facility] [address] Irregular bleeding [address] [facility] [place] [address] [phone] (Wo rk) Social History Tobacco Use Types Packs/Day Years Used Date Former Smoker Cigarettes 1 7 Quit: 09/08/19 11 Smokeless Tobacco: Former User Q uit: 09/29/2010 Alcohol Use Standard Drinks/Week Comments Yes 0 (1 standard drink = 0.6 oz pure alcoho l) not drinking for 3 weeks Alcohol Habits Answer Date Recorded How often do you have a drink containing Not asked alcohol? How many drinks containing alcohol do you have Not asked on a typical day when you are drinking? How often do you have six or more drinks on Not asked one occasion? Comment: not drinking for 3 weeks 08/26/2011 Food Insecurity Answer Date Recorded Within the [...] Sign Reading Time Taken Comments Blood Pressure 98/62 10/18/2011 1549 EDT Pulse - - Temperature - - [...] End Date norgestimate-ethinyl Take 1 Tab by 28 Tab 0 10/18/2011 0 05/29/2012 estradiol (ORTHO mouth daily. TRI-CYCLEN, 28,) 0.18/0.215/0.25 mg-35 mcg (28) tablet metronidazole (FLAGYL) 500 Take 1 Tab by 14 Tab 0 201110/25/2011 mg tablet mouth 2 times daily for 7 days. fluconazole (DIFLUCAN) 150 Take 1 Tab by 1 Tab 0 201105/29/2012 mg tablet mouth once for 1 dose. documented in this encounter Discharge Disposition Disposition Code Departure Means Destination Auto Discharge documented in this encounter Progress Notes Daily, [place] - 10/18/2011 6417 EDT 21 yr old female c/o vaginal discharge and odor and irregular bleeding with IUD. Pt also desires STItesting as she has not been using condoms. Notes a thick yellow discharge with odor. + itching. Denies pelvic pain, fever, chills. C/o irregular bleeding with Mirena IUD. Will bleed for 1-2 weeks at a time. Flow varies. Does not check for IUD strings CNM had prescribed OCP in past to take to see if this would help regulate bleeding however patient did not take it b/c she was dilantin for her seizures. Pt currently taking Keppra. Was in ED yesterdaysecondary to seizure. Normal hemagram 10/17/11 in ER O: NAD External gent: mild redness, no excoriations or lesions Vagina: moderate amount of white discharge with odor Cervix: strings visible, mild CMT Uterus: NT, no masses Adnexa: NT, no masses Wet prep: + yeast, WBC's, and clue cells. + whiff A: Bacterial vaginosis Yeast vaginitis Irregular bleeding with Mirena IUD P: Flagyl 500 mg po BID x 7 days Diflucan 150 mg po x 1. Reviewed vulvar skin care guidelines Discussed irregular bleeding patterns that can happen with IUD. Pt wants to try OCP to see if this regulates bleeding. OTCN one tab daily #28 0RF gen probe, HIV, Hep C, RPR CRP documented in this encounter Plan of Treatment Not on filedocumented as of this encounter Procedures Procedure Name Priority Date/Time Associated Diagnosis Comme nts POCT VAGINAL WET Routine 10/18/2011 16:38 Vaginal discharge Re sults for this PREP INCLUDES DENNY EDT procedure are in the results section. CHLAMYDIA/N. Routine 10/18/2011 16:09 Screening Results for this GONORRHOEAE EDT examination for procedure ar e in AMPLIFIED RNA venereal disease the result s section. documented in this encounter Results (ABNORMAL) POCT VAGINAL WET PREP INCLUDES DENNY (10/18/2011 16:38 EDT) Pathologist Sig nature Clue Cells, POC Present (A) Absent POINT OF CARE Trichomonas, POC Absent Absent POINT OF CARE Yeast, POC Present (A) Absent POINT OF CARE White Blood Cells, POC Present (A) Absent POINT OF CARE Specimen Other (qualifier value) Performing Organization Address City/State/ZIP Code Phon e Number [facility] POINT OF CARE POINT OF CARE CHLAMYDIA/GC AMPLIFIED (10/18/2011 16:09 EDT) Specimen [facility] Description LAB Chlamydia Result No Chlamydia [facility] trachomatis DNA LAB detected by cyber defense incident responder mediated amplification. GC Result No Neisseria [facility] gonorrhoeae DNA LAB detected by cyber defense incident responder mediated amplification. Specimen Other (qualifier value) Performing Organization Address City/State/ZIP Code Phon e Number [facility] [address] [place] [address] [facility] [address] [place] [address] documented in this encounter Visit Diagnoses Diagnosis Screening examination for venereal disea se - Primary Vaginal discharge Leukorrhea, not specified as infective Irregular bleeding Irregular menstrual cycle documented in this encounter Care Teams Tile Roofer Relationship Specialty Start Date End Date Tricia Otero PA PCP - General 08/14/11 11/28/11 documented as of this encounter
--- OUTSIDE RECORDS SUMMARY | 2021-10-28 15:10 | XMS_ITS | Encounter Summary ---
:1990 Author Organization [facility] Address [address] [place] [address] Care Team Providers Name Role Phone Trell Pritchard MD Primary Care Provider Reason for Referral Consult (Routine) - Closed Specialty Diagnoses / Procedures Referred By Contact Refer red To Contact Family Medicine Diagnoses Anxiety Maxwell Martinez MD [facility] [address] [facility] [id number] [place] [address] 93 [phone] Phone: Fax: Referral ID Status Reason Start Date Expiration Date Visits V isits Requested Authorized [id number] Closed Specialty 08/03/2014 1 1 Services Required Question Answer Reason for Request: Anxiety, interested in being seen at [facility] Encounter Details Date Type Department Care Team Description 08/03/2014 Orders Only [facility] Dwayne Morgan Anx iety (Primary Dx) Family Medicine - MD [place] [address] [facility] [address] [place] [id number] [phone] Social History Tobacco Use Types Packs/Day Years [...] as of this encounter Plan of Treatment Scheduled Referrals Name Type Priority Associated Diagnoses Order S chedule AMB CONS/FOLLOW UP Outpatient Referral Routine Anxiety Or dered: PSYCH (ADULT 08/03/2014 PC/FAMILY MEDICINE OR EXT REFERRAL) documented as of this encounter Visit Diagnoses Diagnosis Anxiety - Primary Anxiety state, unspecified documented in this encounter Care Teams Media Analytics Manager Relationship Specialty Start Date End Date Trell Pritchard MD PCP - General 12/19/13 10/26/14 documented as of this encounter
--- OUTSIDE RECORDS SUMMARY | 2021-10-28 15:10 | XMS_ITS | Encounter Summary ---
:[address] [facility] Address [address] [place] [address] Care Team Providers Name Role Phone Carmela Sanchez MD Primary Care Provider Reason for Visit Reason Onset Date Comments Medication Problem 05/29/2011 Encounter Details Date Type Department Care Team Description 05/29/2011 Telephone [facility] Vandana Gama M edication Problem Women's Services - Main RN [place] [id number] [place] [phone] Social History Tobacco Use Types Packs/Day Years [...] this encounter Miscellaneous Notes Telephone Encounter - Vandana Gama, RN - 05/29/2011 0581 EST When Renetta went to pharmacy to fill Rx for OCPs the pharmacist told her there was a drug interaction with her Dilantin. I spoke with the pharmacist who said that the OCPs could lower the effectiveness of Dilantin, and that the reverse could also be true. Estrogen itself would have the same effect. Jie Robbins notified. She will call Pharmacy documented in this encounter Plan of Treatment Not on filedocumented as of this encounter Visit Diagnoses Not on filedocumented in this encounter Care Teams Ios Architect Relationship Specialty Start Date End Date Carmela Sanchez MD PCP - General 07/30/08 08/13/[address] [place] [phone] documented as of this encounter
--- OUTSIDE RECORDS SUMMARY | 2021-10-28 15:10 | XMS_ITS | Encounter Summary ---
:[address] [facility] Address [address] [place] [address] Care Team Providers Name Role Phone Carmela Sanchez MD Primary Care Provider Reason for Visit Reason Comments Cough Pt to the ED from home. Pt c /o cough x5days. Pt in NAD. Skin warm and dry. Resp unlabored. pt AO. Encounter Details Date Type Department Care Team Description 07/24/2011 - Emergency [facility] Cedrick Alba MD [address] [place] [address], Level [address] [place] [address] Cough; 07/25/2011 Emergency Department Emergency, MD Jeff URI (upper respiratory infection) - [address] [address] Social History Tobacco Use Types Packs/Day Years Used Date Former Smoker Cigarettes 1 7 Quit: 09/08/19 11 Smokeless Tobacco: Former User Q uit: 09/29/2010 Alcohol Use Standard Drinks/Week Comments Yes [id number] (1 standard drink = 0.6 oz pure [...] Sign Reading Time Taken Comments Blood Pressure 118/74 07/25/2011 0035 EDT Pulse 112 07/25/2011 0035 EDT Temperature 36.6 ??C (97.9 ??F) 07/25/2011 0035 EDT Respiratory Rate 16 07/25/2011 0035 EDT Oxygen Saturation 97% 07/25/2011 0035 EDT Inhaled Oxygen Concentration - - Weight - - Height - - Body Mass Index - - documented in this encounter Functional Status Cognitive Status Response Date of Assessment Because of a physical, mental, or emotional condition, do Ye s 05/14/2011 you have serious difficulty concentrating, remembering, or making decisions? (5 years old or older) documented as of this encounter Discharge Instructions Cedrick Schultz MD - 07/25/2011 1) return as needed for worsening symptoms 2) May use ibuprofen 600 mg by mouth every 6-8 hours, with food, and as needed. 3) use albuterol as needed, for cough or wheezing--you were not wheezing tonight, had normal vital signs. AttachmentsThe following attachments cannot be sent through Care Everywhere. ACUTE COUGH: AFTER YOUR VISIT ([place])documented in this encounter Medications at Time of [...] Care documented in this encounter ED Notes Cedrick Alba MD - 07/28/2011 0825 EDT DOS: 07/24/2011 Chief Complaint Patient presents with ??? Cough Pt to the ED from home. Pt c/o cough x5days. Pt in NAD. Skin warm and dry. Resp unlabored. pt AO. The patient is a 21 y.o. female who presents today with Cough HPI Comments: 21-year-old female presents with Cough. She presents with her son, who is also being seen for URI symptoms. This patient has had symptoms for Approximately 5 days. Symptoms have not been productive. She has had no measured fever, though has felt subjectively warm. She has not had any arthralgias, myalgias. No chest pain. No mild distress. No leg swelling. No personal history of DVT/PE. No sick contacts, with the exception of her son. Past medical history includes seizure disorder, tobacco abuse. The history is provided by the patient. Cough Associated symptoms include rhinorrhea and sore throat (Mild, with cough). Pertinent negatives include no chest pain, no chills, no ear pain, no headaches and no shortness of breath. Review of Systems Constitutional: Positive for fever (Subjective). Negative for chills, diaphoresis and fatigue. HENT: Positive for congestion, sore throat (Mild, with cough) and rhinorrhea. Negative for ear pain,mouth sores and trouble swallowing. Eyes: Negative for photophobia and visual disturbance. Respiratory: Positive for cough. Negative for shortness of breath. Cardiovascular: Negative for chest pain and leg swelling. Gastrointestinal: Negative for nausea and vomiting. Genitourinary: Negative for dysuria. Musculoskeletal: Negative for back pain. Neurological: Negative for syncope and headaches. Past Medical History Diagnosis Date ??? Acid [...] past surgical history. Allergies Allergen Reactions ??? Sulfa(Sulfonamide Antibiotics) Anaphylaxis ??? Bee Pollens Anaphylaxis History Substance Use Topics ??? Smoking status: Former Smoker -- 1.0 packs/day for 7 years Types: Cigarettes Quit date: 09/07/2010 ??? Smokeless tobacco: Former User Quit date: 09/29/2010 ??? Alcohol Use: 10.0 oz/week 2 Glasses of wine per week Family History Problem Relation Age of Onset ??? Depression Mother ??? Depression Maternal Grandfather severe ??? Hypertension Maternal Grandfather ??? Diabetes Maternal Grandfather ??? Cancer Paternal Grandmother Vital Signs Temp: 36.6 ??C (97.9 ??F) Pulse: 112 Resp: 16 SpO2: 97 % BP: 118/74 mmHg O2 Device: None (Room air) Physical Exam Nursing note and vitals reviewed. Constitutional: She is oriented to person, place, and time. She appears well- nourished. No distress. Mild tachycardia Asleep when I meet her initially HENT: Head: Normocephalic and atraumatic. Right Ear: External ear normal. Left Ear: External ear normal. Mouth/Throat: Oropharynx is clear and moist. Slightly inflamed bilateral nasal mucosa Eyes: Conjunctivae are normal. Right eye exhibits no discharge. Left eye exhibits no discharge. No scleral icterus. Neck: Normal range of motion. Neck supple. Cardiovascular: Intact distal pulses. No murmur heard. Pulmonary/Chest: No respiratory distress. She has no wheezes. She has no rales. Abdominal: She exhibits no distension. There is no tenderness. Musculoskeletal: She exhibits no edema and no tenderness. Lymphadenopathy: She has cervical adenopathy. Neurological: She is alert and oriented to person, place, and time. Skin: Skin is warm and dry. She is not diaphoretic. Psychiatric: She has a normal mood and affect. Radiology orders: None Procedures ED Course: A medical screening exam was performed. Given cough, probable bronchitis, tobacco abuse, have provided this patient with an albuterol inhaler. Explicit return precautions given. Disposition: Discharged The patient's pain was managed to an adequate level weighing risk vs. benefit of further medications. Upon departure from the Emergency Department, the patient's pain was 0 on a zero to ten scale. Condition at departure from the Emergency Department: Improved Discharge Prescriptions New Prescriptions No Discharge Prescriptions for this patient MDM Number of Diagnoses or Management Options Cough: URI (upper respiratory infection): Diagnosis management comments: 3 1. Cough 2. 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 - 07/25/2011 0080 EDT documented in this encounter Plan of Treatment Not on filedocumented as of this encounter Visit Diagnoses Diagnosis Cough URI (upper respiratory infection) Acute upper respiratory infections of un specified site documented in this encounter Administered Medications Inactive Administered Medications - up to 3 most recent administrations Medication Order MAR Action Action Date Dose Rate Site albuterol (PROVENTIL HFA, VENTOLIN Given 07/25/2011 1:53 EDT 2 P uffs HFA) inhaler 2 Puff 2 Puff, inhalation, NOW X1, 1 dose, On 07/25/11 at 0215, STAT documented in this encounter Active and Recently Administered Medications Times are shown in EDT. Scheduled Medication Order 07/23/2011 07/24/2011 07/25/2011 albuterol (PROVENTIL HFA, VENTOLIN HFA) inhaler 2 Puff (COMPLETE D) 0153 (Given - Provider: Pranav Penaloza RN) 2 Puff, Inhalation, NOW X1, 1 dose, 07/25/11 at 0215 documented in this encounter Orders Medications Ordered That Might Not Have Count Last Ord ered Date First Ordered Date Been Administered albuterol (PROVENTIL HFA, VENTOLIN HFA) 1 07/25/19 12 inhaler 2 Puff documented in this encounter Care Teams Clinical Account Liaison Relationship Specialty Start Date End Date Carmela Sanchez MD PCP - General 07/30/08 08/13/[address] [place] [phone] documented as of this encounter
--- OUTSIDE RECORDS SUMMARY | 2021-10-28 15:10 | XMS_ITS | Encounter Summary ---
:1990 Author Organization [facility] Address [address] [place] [address] Care Team Providers Name Role Phone None, Provider Primary Care Provider Unavailable Reason for Visit Reason Comments Seizures Pt arrives from home where s he had a witnessed full body seizure lasting approx 5 min per grantmother (witness). pt states that she feels well. Has not had any fever. Denies pr egnancy. Has 9 mo old son. Pt states seizures started when she was 29 wks . last seizure 4 months ago. Pt bit her tongue, no bleeding now. Not inc during seizure. Encounter Details Date Type Department Care Team Description 11/29/2011 Emergency [facility] Ralph Jackman MD [address] [place] [address], [address] [place] [address] Seizure disorder Emergency Department Emergency, MD Jeff ([facility] [place]) - [address] [address] Social History Tobacco Use Types Packs/Day Years Used Date Former Smoker Cigarettes 1 7 Quit: 09/30/19 11 Smokeless Tobacco: Former User Q uit: [...] 12 months, you worried that your food Andrew rivas true 06/20/2019 would run out before you got money to buy more. Within the past 12 months, the food you bought just Never tr ue 06/20/2019 didn't last and you didn't have money to get more. Sex Assigned at Date Recorded Female 02/20/2019 13:04 EST documented as of this encounter Last Filed Vital Signs Vital Sign Reading Time Taken Comments Blood Pressure 127/67 11/29/2011 2257 EDT Pulse 72 11/29/2011 2257 EDT Temperature 36.2 ??C (97.2 ??F) 11/29/2011 1846 EDT Respiratory Rate 15 11/29/2011 2257 EDT Oxygen Saturation 96% 11/29/2011 225 EDT Inhaled Oxygen Concentration - - Weight 72.6 kg (160 lb) 11/29/2011 1846 EDT Height - - Body Mass Index 26.63 10/17/2011 1052 EDT documented in this encounter Functional Status Cognitive Status Response Date of Assessment Because of a physical, mental, or emotional condition, do Ye s 05/14/2011 you have serious difficulty concentrating, remembering, or making decisions? (5 years old or older) documented as of this encounter Discharge Instructions Ralph Gaffney MD - 11/29/2011 Start the new medication as directed. Taken exactly as directed. No driving, swimming, climbing ladders, or other potentially hazardous activities. Call neurology clinic tomorrow. The have said That youwill be on the waiting list and make an appointment as soon as possible. Return if further seizures, or acute injury her self during a seizure. documented in this encounter Medications at Time of Discharge Medication Sig Dispensed Refills Start Date End Date ALBUTEROL INHL Inhale as directed as 0 05/29/2012 needed. fluconazole (DIFLUCAN) Take 1 Tab by mouth 1 Tab 0 10/0705/29/2012 150 mg tablet once for 1 dose. ibuprofen (MOTRIN) 600 Take 1 Tab by mouth 90 Tab 2 05/1007/31/2014 mg tabletIndications: every 8 hours as Migraines needed for Pain. lamotrigine (LAMICTAL) Take 1 pill every day 50 Tab 0 07/15/2015 25 mg tablet for 2 weeks. If no serious side effects, start taking 2 pills once a day for another 2 weeks. See neurologist LILLY for further adjustments. levetiracetam (KEPPRA) Take 1 Tab by mouth 2 60 Tab 0 06/22/2012 500 mg tablet times daily. LEVONORGESTREL (MIRENA by Intrauterine 0 04/24/2016 IU) route. methocarbamol (ROBAXIN) Take 1 Tab by mouth 3 90 Tab 2 0 05/24/2011 06/22/2012 500 mg times daily as tabletIndications: Back needed. spasm norgestimate-ethinyl Take 1 Tab by mouth 28 Tab 0 201105/29/2012 estradiol (ORTHO daily. TRI-CYCLEN, 28,) 0.18/0.215/0.25 mg-35 mcg (28) tablet documented as of this encounter Ordered Prescriptions Prescription Sig Dispensed Refills Start Date End Date lamotrigine (LAMICTAL) Take 1 pill every day 50 Tab 0 07/15/2015 25 mg tablet for 2 weeks. If no serious side effects, start taking 2 pills once a day for another 2 weeks. See neurologist LILLY for further adjustments. documented in this encounter Progress Notes Chelsey Burton MD - 11/30/2011 3643 EDT Pt.wasn't seen by neurology resident in ED (only medical student) as she left AMA prior to being seen. Will order EEG to be done as outpatient with CC of result to , whom pt.saw in for same. Have sent e-mail to to see if appt.can be arranged with him so pt.should be contacted with appointment. Chelsey Burton PGY-3, neurology resident. documented in this encounter ED Notes Ralph Jackman MD - 11/29/2011 2830 EDT DOS: 11/29/2011 Chief Complaint Patient presents with ??? Seizures Pt arrives from home where she had a witnessed full body seizure lasting approx 5 min per grantmother (witness). pt states that she feels well. Has not had any fever. Denies . Has 9 mo old son. Pt states seizures started when she was 29 wks . last seizure 4 months ago. Pt bit her tongue, no bleeding now. Not inc during seizure. The patient is a 21 y.o. female who presents today with Seizures HPI Comments: Patient is brought in by her family after having a witnessed seizure this afternoon. She does have a known seizure disorder with 4 previous seizures prior to today. She was apparently riding in the passenger's seat of the car speaking to her grandmother and then stopped speaking and had a seizure that lasted approximately 5 minutes. She is post ictal briefly afterwards but rapidly regained normal consciousness. She reports that she did bite her tongue and denied any other injury. She specifically denies neck pain, back pain, or extremity pain. She has a dull pounding headache. She Has been intolerant of 2 different previous seizure medications. She is on Topamax for about a month and says this made her feel lethargic so stopped it. Her neurologist started her on Keppra afterthat she says this caused gum and tooth pain so she stopped that as well. She also took this for about a month. She says she has been trying to get back in the neurology clinic to discuss this with them but has not yet received a call back from them. She denies any recent illnesses. Denies fevers, chills, vomiting, diarrhea, cough, shortness of breath, or upper respiratory symptoms. She has been under some increased stress with her child The history is provided by the patient and a relative. Review of Systems Constitutional: Negative for fever, chills, activity change, appetite change and fatigue. HENT: Negative for congestion, sore throat, rhinorrhea, neck pain and neck stiffness. Eyes: Negative for redness, itching and visual disturbance. Respiratory: Negative for cough, choking and shortness of breath. Cardiovascular: Negative for chest pain, palpitations and leg swelling. Gastrointestinal: Negative for nausea, vomiting, abdominal pain and diarrhea. Genitourinary: Negative for dysuria, frequency, flank pain, vaginal bleeding, vaginal discharge and pelvic pain. Musculoskeletal: Negative for myalgias, back pain and arthralgias. Skin: Negative for color change. Neurological: Positive for seizures and headaches. Negative for dizziness, tremors, syncope, speech difficulty and weakness. Hematological: Negative for adenopathy. Does not bruise/bleed easily. Psychiatric/Behavioral: Negative for hallucinations, behavioral problems, confusion and agitation. Past Medical History Diagnosis Date ??? Acid [...] for 7 years Types: Cigarettes Quit date: 09/29/2010 ??? Smokeless tobacco: Former User Quit date: 09/29/2010 ??? Alcohol Use: 0.0 - 0.5 oz/week 0-1 drink(s) per week not drinking for 3 weeks Family History Problem Relation Age of Onset ??? Depression Mother ??? Depression Maternal Grandfather severe ??? Hypertension Maternal Grandfather ??? Diabetes Maternal Grandfather ??? Cancer Paternal Grandmother Vital Signs Temp: 36.2 ??C (97.2 ??F) Temp src: Oral Pulse: 72 Resp: 15 SpO2: 96 % BP: 127/67 mmHg BP Device: BP Machine Patient Position: Sitting BP Cuff Location: Left arm O2 Device: None (Room air) Physical Exam Nursing note and vitals reviewed. Constitutional: She is oriented to person, place, and time. She appears well- developed and well-nourished. No distress. HENT: Head: Normocephalic and atraumatic. Right Ear: External ear normal. Left Ear: External ear normal. Nose: Nose normal. Mouth/Throat: No oropharyngeal exudate. She has an abrasion to the left anterior tongue without rebecca laceration. No swelling. Eyes: Conjunctivae and EOM are normal. Pupils are equal, round, and reactive to light. Right eye exhibits no discharge. No nystagmus Neck: Normal range of motion. Neck supple. nontender Cardiovascular: Normal rate, regular rhythm and intact distal pulses. Exam reveals no gallop and no friction rub. No murmur heard. Pulmonary/Chest: Effort normal and breath sounds normal. No respiratory distress. She has no wheezes. She has no rales. She exhibits no tenderness. Abdominal: Soft. Bowel sounds are normal. She exhibits no distension and no mass. There is no tenderness. There is no rebound and no guarding. Musculoskeletal: Normal range of motion. She exhibits no edema and no tenderness. Neurological: She is alert and oriented to person, place, and time. She has normal reflexes. She exhibits normal muscle tone. Coordination normal. No tremor or fasciculation or twitching. 5 out of 5 motor in all 4 extremities. Normal sensation and gait. Skin: Skin is warm and dry. No rash noted. She is not diaphoretic. No erythema. No pallor. Psychiatric: She has a normal mood and affect. Her behavior is normal. Judgment and thought content normal. Radiology orders: None Procedures ED Course: A medical screening exam was performed. Patient has a known seizure disorder with recurrent seizure tonight. Per the grandmother is somewhat atypical in that she is always had seizures during her sleepand today's was while awake. She has been intolerant to both of her previously tried anticonvulsantsand is not taking anything at present time. Labs Reviewed HEMAGRAM - Abnormal; Notable for the following: WBC 15.84 (*) All other components within normal limits DIFFERENTIAL - Abnormal; Notable for the following: Neutrophils 85.6 (*) Lymphocytes 12.2 (*) Eosinophils 0.2 (*) Basophils 0.0 (*) ABS Neutrophils 13.57 (*) ABS Basophils 0.00 (*) All other components within normal limits POCT URINE TEST HEMAGRAM AND DIFFERENTIAL ELECTROLYTES BUN CREATININE URINALYSIS URINE CULTURE IF UA POSITIVE - NON POCT URINALYSIS ONLY CALCIUM MAGNESIUM PHOSPHORUS UA REFLEX labs remarkable for an elevated WBC count of 15,800, otherwise unremarkable. Page test was negative. I did consult neurology , however, they were unfortunately delayed by multiple emergencies on the floor, and when I will see the patient in a timely manner herniae. The patient became more and more anxious to leave and was threatening to leave AMA. I did discuss the case with him further, and have had the patient placed on a waiting list for an early appointment in neurology clinic. We will start her on Lamictal at a low dose with tapering upwards to see if she can tolerate this and to control seizures. I did again reiterated to her the importance of avoiding dangerous activities including driving. Return if further controlled seizures, confusion, or other new symptoms. followup with neurology assoon as possible. She is discharged in stable condition. Disposition: Discharged The patient's pain was managed to an adequate level weighing risk vs. benefit of further medications. Upon departure from the Emergency Department, the patient's pain was 0 on a zero to ten scale. Condition at departure from the Emergency Department: Stable Discharge Prescriptions New Prescriptions LAMOTRIGINE (LAMICTAL) 25 MG TABLET Take 1 pill every day for 2 weeks. If no serious side effects, start taking 2 pills once a day for another 2 weeks. See neurologist LILLY for further adjustments. MDM Number of Diagnoses or Management Options Seizure disorder: Diagnosis management comments: 4 1. Seizure disorder PCP: MD Pace PCP 11/29/2011 23:05 rJie tom RN - 11/29/2011 2151 EDT Paged Neuro, pt asking if she can go home and get prescription called to her tomorrow. Jie Chan RN - 11/29/2011 2102 EDT Pt drinking water, no nausea. Labs sent. Urine sent. ie Chan RN - 11/29/2011 2017 EDT Neuro in at bedside to eval. Pt aware of urine sample needs. Pt states she is starting to have migraine w/ blurred vision. notified. ie Del Toro RN - 11/29/2011 1930 EDT Pt states now she is having postictal s/s that are usual for here such as h/a, nausea and cramped calves bilat. Jie Chowdhury RN - 11/29/2011 1919 EDT Pt amb to BR to void/ change pants (was inc after all). Gait stable. rJie tom RN - 11/29/2011 1855 EDT Pt is alert, talkative, no postictal qualities. ie Chan RN - 11/29/2011 1847 EDT Pt is not . States she has been eating and drinking normally. Has not been taking keppra as prescribed due to her not liking the side effects. ie Del Toro RN - 11/29/2011 1846 EDT Pt alert, talkative. documented in this encounter Miscellaneous Notes Scanned Note-Null - CUT OFF SAWYER, SCAN 2 - 12/06/2011 2246 EDT canned Note- Null - CUT OFF SAWYER, SCAN 2 - 12/01/2011 1001 EDT canned Note- Null - CUT OFF SAWYER, SCAN 2 - 11/29/2011 2219 EDT documented in this encounter Plan of Treatment Not on filedocumented as of this encounter Procedures Procedure Name Priority Date/Time Associated Comments Diagnosis POCT TEST, STAT 11/29/2011 21:03 Res ults for this VISUAL READ EDT procedure are i n the results section. DIFFERENTIAL Routine 11/29/2011 20:54 Results for this EDT procedure are i n the results section. COMPLETE BLOOD COUNT Routine 11/29/2011 20:54 Res ults for this EDT procedure are i n the results section. COMPLETE BLOOD COUNT Routine 11/29/2011 20:54 AND DIFFERENTIAL EDT BUN Routine 11/29/2011 20:54 Results for this EDT procedure are i n the results section. PHOSPHORUS Routine 11/29/2011 20:54 Results for this EDT procedure are i n the results section. MAGNESIUM Routine 11/29/2011 20:54 Results for this EDT procedure are i n the results section. CREATININE Routine 11/29/2011 20:54 Results for this EDT procedure are i n the results section. CALCIUM Routine 11/29/2011 20:54 Results for this EDT procedure are i n the results section. ELECTROLYTES Routine 11/29/2011 20:54 Results for this EDT procedure are i n the results section. URINALYSIS WITH Routine 11/29/2011 20:39 Results for this MICROSCOPIC IF EDT procedure are in POSITIVE the results section. UA REFLEX Routine 11/29/2011 20:39 Results for this EDT procedure are i n the results section. URINE CULTURE IF Routine 11/29/2011 20:39 Results for this POSITIVE EDT procedure are i n the results section. documented in this encounter Results POCT URINE TEST (11/29/2011 21:03 EDT) Pathologist Sig nature Test, Negative Reference Range, POINT OF CARE Urine, POC Negative Control Line Present Yes POINT OF CARE Background Clear? Yes POINT OF CARE Specimen Urine (substance) Performing Organization Address City/State/ZIP Code Phon e Number [facility] POINT OF CARE POINT OF CARE (ABNORMAL) DIFFERENTIAL (11/29/2011 20:54 EDT) Pathologist Sig nature Neutrophils 85.6 (H) 45.5 - 79.7 % [facility] Lymphocytes 12.2 (L) 15.0 - 46.8 % [facility] Monocytes 2.0 1.8 - 12.0 % [facility] Eosinophils 0.2 (L) 0.6 - 6.9 % [facility] Basophils 0.0 (L) 0.2 - 1.4 % [facility] ABS Neutrophils 13.57 (H) 2.20 - 8.85 K/cmm [facility] ABS Lymphs 1.93 1.09 - 3.30 K/cmm [facility] ABS Monocytes 0.31 0.1 - 0.8 K/cmm [facility] ABS Eosinophils 0.04 0.03 - 0.61 K/cmm [facility] ABS Basophils 0.00 (L) 0.01 - 0.11 K/cmm [facility] Type of Diff: Automated [facility] Specimen Performing Organization Address City/[facility]/ZIP Code Phon e Number [facility] [address] [place] [address] SERVICES [facility] [address] [place] [address] (ABNORMAL) HEMAGRAM (11/29/2011 20:54 EDT) Pathologist Sig nature WBC 15.84 (H) 4.0 - 12.4 K/cmm [facility] RBC 4.64 3.86 - 5.04 M/cmm [facility] Hemoglobin 14.5 11.6 - 15.2 gm/dl [facility] HCT 42.1 34.9 - 44.4 % [facility] MCV 91 81 - 98 fl [facility] MCH 31.3 26.7 - 33.3 pg [facility] MCHC 34.6 32.1 - 35.9 gm/dl [facility] PLT 198 141 - 320 K/cmm [facility] RDW-CV 13.0 11.7 - 14.6 % [facility] Specimen Performing Organization Address City/[facility]/ZIP Code Phon e Number [facility] [address] [place] [address] SERVICES [facility] [address] [place] [address] PHOSPHORUS (11/29/2011 20:54 EDT) Pathologist Sig nature Phosphorus 3.4 2.5 - 4.5 mg/dl [facility] Specimen Blood specimen (specimen) Performing Organization Address City/[facility]/ZIP Code Phon e Number [facility] [address] [place] [address] SERVICES [facility] [address] [place] [address] MAGNESIUM (11/29/2011 20:54 EDT) Pathologist Sig nature Magnesium 2.0 1.7 - 2.8 mg/dl [facility] Specimen Blood specimen (specimen) Performing Organization Address [facility]/ZIP Code Phon e Number [facility] [address] [place] [address] SERVICES [facility] [address] [place] [address] CALCIUM (11/29/2011 20:54 EDT) Pathologist Sig nature Calcium 8.7 8.5 - 10.5 mg/dl [facility] Calculated Calcium 9.2 8.5 - 10.5 mg/dl [facility] Specimen Blood specimen (specimen) Performing Organization Address City/[facility] Phon e Number [facility] [address] [place] [address] SERVICES [facility] [address] [place] [address] CREATININE (11/29/2011 20:54 EDT) Pathologist Sig nature Creatinine 0.58 0.52 - 1.04 mg/dl [facility] GFR, Calculated >60 >60 ml/min/1.73m2 [facility] Specimen Blood specimen (specimen) Performing Organization Address City/[facility]/ZIP Code Phon e Number [facility] [address] [place] [address] SERVICES [facility] [address] [place] [address] BUN (11/29/2011 20:54 EDT) Pathologist Sig nature BUN 10 10 - 26 mg/dl [facility] Specimen Blood specimen (specimen) Performing Organization Address City/State/ZIP Code Phon e Number [facility] [address] [place] [address] SERVICES [facility] [address] [place] [address] ELECTROLYTES (11/29/2011 20:54 EDT) Pathologist Sig nature Sodium 136 136 - 145 mEq/L [facility] Potassium 3.9 3.5 - 5.0 mEq/L [facility] Chloride 103 96 - 110 mEq/L [facility] CO2 25 24 - 32 mEq/L [facility] Specimen Blood specimen (specimen) Performing Organization Address [facility]/ZIP [facility] Phon e Number [facility] [address] [place] [address] SERVICES [facility] [address] [place] [address] UA REFLEX (11/29/2011 20:39 EDT) Pathologist Sig nature UA Billing Microscopic not [facility] indicated. Specimen Performing Organization Address [facility] Phon e Number [facility] [address] [place] [address] SERVICES [facility] [address] [place] [address] URINE CULTURE IF UA POSITIVE - NON POCT URINALYSIS ONLY (11/29/2011 20:39 EDT) Culture if Culture not [facility] Indicated indicated by urinalysis results. Specimen Urine (substance) Performing Organization Address [facility] Phon e Number [facility] [address] [place] [address] SERVICES [facility] [address] [place] [address] URINALYSIS (11/29/2011 20:39 EDT) Pathologist Sig nature Color, UA Yellow [facility] Clarity, UA Clear [facility] Glucose, UA Neg Neg [facility] Bilirubin, UA Neg Neg [facility] Ketones, UA Neg Neg [facility] Specific [place], 1.020 1.001 - 1.035 [facility] Urine Blood, UA Neg Neg [facility] pH, UA 6.5 4.6 - 8.0 [facility] Protein, UA Neg Neg [facility] Urobilinogen, UA 0.2 0.2 - 1.0 [facility] E.U./dl Nitrite, UA Neg Neg [facility] Leuk Esterase Neg Neg [facility] Specimen Urine (substance) Performing Organization Address [facility] Phon e Number [facility] [address] [place] [address] SERVICES [facility] [address] [place] [address] documented in this encounter Visit Diagnoses Diagnosis Seizure disorder ([facility]) (HCC) Unspecified epilepsy without mention of intractable epilepsy documented in this encounter Administered Medications Inactive Administered Medications - up to 3 most recent administrations Medication Order MAR Action Action Date Dose Rate Site acetaminophen (TYLENOL) 325 mg tablet 1 dose, Starting on Sun11/29/11 at 2050, Until 11/08 at 2101 acetaminophen (TYLENOL) tablet 975 mg Given 11/29/2011 21:02 EDT 975 mg 975 mg, oral, NOW X1, 1 dose, On Sun11/29/11 at 2045, STAT ondansetron (PF) (ZOFRAN) injection 4 mg Given 11/29/2011 19:29 EDT 4 mg 4 mg, intravenous, NOW X1, 1 dose, On Sun11/29/11 at 1930, STAT documented in this encounter Active and Recently Administered Medications Times are shown in EDT. Scheduled Medication Order 11/27/2011 11/28/2011 11/29/2011 acetaminophen (TYLENOL) tablet 975 mg (COMPLETED) 2101 (Given - Provider: Jie Chan RN) 975 mg, Oral, NOW X1, 1 dose, Sun11/29/11 at 2045 ondansetron (PF) (ZOFRAN) injection 4 mg (COMPLETED) 1928 (Given - Provider: Jie Chan RN) 4 mg, Intravenous, NOW X1, 1 dose, Sun11/29/11 at 1930 documented in this encounter Orders Medications Ordered That Might Not Have Count Last Ord ered Date First Ordered Date Been Administered lorazepam (ATIVAN) 2 mg/mL injection 1 11/29/2011 documented in this encounter Care Teams Editor Newspaper Relationship Specialty Start Date End Date None, Provider PCP - General 11/29/11 09/30/12 documented as of this encounter
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
--- OUTSIDE RECORDS SUMMARY | 2021-10-28 15:10 | XMS_ITS | Encounter Summary ---
:1990 Author Organization [facility] Address [address] [place] [address] Care Team Providers Name Role Phone Lyric Robbins MD Primary Care Provider Reason for Visit Reason Comments Skin Problem spot on arm and leg - mom jimenes d similar issue - looking for derm referral Encounter Details Date Type Department Care Team Description 10/01/2012 Office Visit [facility] Unknown, Prov MD nora Atypical nevus (Primary Family Medicine - Ami Davis MD Dx) [address] [address] Social History Tobacco Use Types Packs/Day Years [...] Sign Reading Time Taken Comments Blood Pressure 98/68 10/01/2012 1010 EDT Pulse 68 10/01/2012 1010 EDT Temperature 36.9 ??C (98.4 ??F) 10/01/2012 1010 EDT Respiratory Rate 16 10/01/2012 1010 EDT Oxygen Saturation - - Inhaled Oxygen Concentration - - Weight 67.7 kg (149 lb 3.2 oz) 10/01/2012 1010 EDT Height 165.1 cm (5' 5) 10/01/2012 1010 EDT Body Mass Index 24.83 10/01/2012 1010 EDT documented in this encounter Functional Status Cognitive Status Response Date of Assessment Because of a physical, mental, or emotional condition, do Ye s 05/14/2011 you have serious difficulty concentrating, remembering, or making decisions? (5 years old or older) documented as of this encounter Discharge Disposition Disposition Code Departure Means Destination Auto Discharge documented in this encounter Progress Notes Braulio Rodriguez MD - 10/02/2012 1008 EDT Attestation statement for office patient seen by attending: I saw and examined the patient on the day of this service and agree with the findings and plan of care documented in the resident's/fellow's note. Braulio Rodrigeuz MD Family Medicine Attending 10/02/2012 10:08 I was present during entire proceedure i Rosa MD - 10/01/2012 1807 EDT Shave Biopsy Procedure Note Pre-operative Diagnosis: Suspicious lesion Post-operative Diagnosis: same Locations:left upper extremity Indications: irritated, maternal h/o skin cancer in similar location Anesthesia: Lidocaine 1% with epinephrine without added sodium bicarbonate Procedure Details Patient informed of the risks (including bleeding and infection) and benefits of the procedure and Written informed consent obtained. The lesion and surrounding area were given aseptic prep using alcohol. A dermablade was used to shave an area of skin approximately 1cm by 0.5cm. Hemostasis achieved with alumuninum chloride. Sterile dressing applied. The specimen was sent for pathologic examination. The patient tolerated the procedure well. The attending was present for the entire procedure. EBL: 0 ml Findings: No residual pigment Condition: Stable Complications: none. Plan: 1. Instructed to keep the wound dry and covered for 24-48h and clean thereafter. 2. Warning signs of infection were reviewed. 3. Recommended that the patient use OTC analgesics as needed for pain. 4. Return prn Patient and plan discussed with attending Dr. Rodriguez at the time of the visit. Ami Davis MD PGY-3 Family Medicine [id number] 10/01/2012 18:10 documented in this encounter Miscellaneous Notes Scanned Note-Null - RF DESIGN ENGINEER, SCAN 2 - 10/09/2012 0848 EDT documented in this encounter Plan of Treatment Not on filedocumented as of this encounter Visit Diagnoses Diagnosis Atypical nevus - Primary Benign neoplasm of skin, site unspecifie d documented in this encounter Care Teams Quality Assurance Coordinator Relationship Specialty Start Date End Date Lyric Robbins MD PCP - General 10/01/12 12/18/13 8 GABRIEL [facility], [address] [place] [address] documented as of this encounter
--- OUTSIDE RECORDS SUMMARY | 2021-10-28 15:10 | XMS_ITS | Encounter Summary ---
:1990 Author Organization [facility] Address [address] [place] [address] Care Team Providers Name Role Phone Tricia Otero Primary Care Provider Unavailable Reason for Visit Reason Comments Sunburn 6.5 hours in sun without sun screen Encounter Details Date Type Department Care Team Description 09/25/2011 Emergency [facility] Emergency Thang Holland salazar, DEVENDRAC [address] [place] [address] [facility] Department - Main [facility] [facility] Emergency, MD Jeff [address] [place] [address] Social History Tobacco Use Types [...] Sign Reading Time Taken Comments Blood Pressure 118/65 09/25/2011 1005 EDT Pulse 80 09/25/2011 1005 EDT Temperature 36.6 ??C (97.9 ??F) 09/25/2011 1005 EDT Respiratory Rate 15 09/25/2011 1005 EDT Oxygen Saturation 100% 09/25/2011 1005 EDT Inhaled Oxygen Concentration - - Weight 77.6 kg (171 lb) 09/25/2011 1005 EDT Height 165.1 cm (5' 5) 09/25/2011 1005 EDT Body Mass Index 28.46 09/25/2011 1005 EDT documented in this encounter Functional Status Cognitive Status Response Date of Assessment Because of a physical, mental, or emotional condition, do Ye s 05/14/2011 you have serious difficulty concentrating, remembering, or making decisions? (5 years old or older) documented as of this encounter Discharge Instructions InstructionsHolland Landers PA - 09/25/2011 You have a sunburn. This will go away in one or 2 more days . Use Motrin and Tylenol as needed for pain. Use uznq-ept-feguufb gel such as Solarcaine. Use cool baths. Minimize walking and activity until better. AttachmentsThe following attachments cannot be sent through Care Everywhere. SUNBURN: AFTER YOUR VISIT (KITTITIAN)documented in this encounter Medications at Time of [...] times daily as tabletIndications: Back needed. spasm topiramate (TOPAMAX) 25 Take 1 Tab by mouth 2 140 Tab 1 0 08/14/2011 10/17/2011 mg tablet times daily. documented as of this encounter Discharge Disposition Disposition Code Departure Means Destination Home or Self Care documented in this encounter ED Notes Monica Tsang RN - 09/25/2011 1041 EDT Pt requesting w/c for d/c- encouraged pt to walk. Holland Villatoro PA - 09/25/2011 1022 EDT DOS: 09/25/2011 Chief Complaint Patient presents with ??? Sunburn 6.5 hours in sun without sunscreen The patient is a 21 y.o. female who presents today with Sunburn HPI Comments: 21-year-old female comes in with a sunburn to her legs, face, arms, upper chest. Patient was any continued yesterday with no sun block for 6 hours. Patient complains of pain, headache, inability to walk as her pain. She has been using OTC remedies with no relief. The history is provided by the patient. Sunburn Review of Systems All other systems reviewed [...] User Quit date: 09/29/2010 ??? Alcohol Use: No not drinking for 3 weeks Family History Problem Relation Age of Onset ??? Depression Mother ??? Depression Maternal Grandfather severe ??? Hypertension Maternal Grandfather ??? Diabetes Maternal Grandfather ??? Cancer Paternal Grandmother Vital Signs Temp: 36.6 ??C (97.9 ??F) Temp src: Tympanic Pulse: 80 Resp: 15 SpO2: 100 % BP: 118/65 mmHg BP Device: BP Machine O2 Device: None (Room air) Physical Exam Vitals reviewed. Constitutional: She is oriented to person, place, and time. She appears well- developed and well-nourished. No distress. HENT: Head: Normocephalic. Eyes: Pupils are equal, round, and reactive to light. Cardiovascular: Normal rate. Pulmonary/Chest: Effort normal. Neurological: She is alert and oriented to person, place, and time. Skin: There is erythema. First-degree sunburn on the anterior legs, upper chest, face, arms, with no blistering, swelling, weeping Psychiatric: She has a normal mood and affect. Her behavior is normal. Radiology orders: None Procedures ED Course: A medical screening exam was performed. Patient has a extensive first-degree sunburn on her anteriorextremities, upper chest, face, with no blistering, weeping, swelling. Patient was instructed to continue imug-plc-cuiykzh analgesics, sunburn creams, and expect improvement over the next 24-48 hours. S he was informed that we do not treat sunburns with narcotics Disposition: Discharged The patient's pain was managed to an adequate level weighing risk vs. benefit of further medications. Upon departure from the Emergency Department, the patient's pain was 8 on a zero to ten scale. Condition at departure from the Emergency Department: Stable Discharge Prescriptions New Prescriptions No Discharge Prescriptions for this patient MDM Number of Diagnoses or Management Options Sunburn: Diagnosis management comments: 2 Amount and/or Complexity of Data Reviewed Review and summarize past medical records: yes 1. Sunburn PCP: CARMELA Thompson 09/25/2011 10:22 Daisy villalba RN - 09/25/2011 1004 EDT Pt states she can't walk because her legs hurt too much. documented in this encounter Miscellaneous Notes Scanned Note-Null - PULP MAKING PLANT OPERATOR, SCAN 2 - 09/29/2011 2315 EDT documented in this encounter Plan of Treatment Not on filedocumented as of this encounter Visit Diagnoses Diagnosis Sunburn documented in this encounter Discontinued Medications Medication Sig Discontinue Reason Start Date End Date pantoprazole (PROTONIX) 40 Take 1 Tab by 01/05/2011 09/25/2011 mg tablet mouth daily. documented as of this encounter Care Teams Overhead Garage Door Hanger Relationship Specialty Start Date End Date Tricia Otero PA PCP - General 08/14/11 11/28/11 documented as of this encounter
--- OUTSIDE RECORDS SUMMARY | 2021-10-28 15:10 | XMS_ITS | Encounter Summary ---
:1990 Author Organization [facility] Address [address] [place] [address] Care Team Providers Name Role Phone Trell Pritchard MD Primary Care Provider Reason for Visit Reason Onset Date Comments Referral Request 09/23/2014 Encounter Details Date Type Department Care Team Description 09/23/2014 Telephone [facility] Dwayne Barbosa MD Referral Request [address] [address] [place] [address] [phone] Social History Tobacco Use Types Packs/Day Years [...] this encounter Miscellaneous Notes Telephone Encounter - Leeann Lopez - 09/23/2014 0562 EDT Please review and discuss with your provider at weekly meeting. Contacted patient to offer her an appointment with Dr. Duran, patient declined as she cannot come in during the day which is the only time Dr. Duran sees patients. Closing referral. documented in this encounter Plan of Treatment Not on filedocumented as of this encounter Visit Diagnoses Not on filedocumented in this encounter Care Teams Sawsmith Relationship Specialty Start Date End Date Trell Pritchard MD PCP - General 12/19/13 10/26/14 documented as of this encounter
--- OUTSIDE RECORDS SUMMARY | 2021-10-28 15:10 | XMS_ITS | Encounter Summary ---
:1990 Author Organization [facility] Address [address] [place] [address] Care Team Providers Name Role Phone Trell Pritchard MD Primary Care Provider Reason for Visit Reason Onset Date Comments Asthma 01/13/2014 registry management. Encounter Details Date Type Department Care Team Description 01/13/2014 Telephone [facility] Zulma Medellin Asth ma (registry Family Medicine - ASBESTOS BRAKE LINING FINISHER HELPER management . ) [address] [address] Social History Tobacco Use Types [...] this encounter Miscellaneous Notes Telephone Encounter - Zulma Medellin LPN - 01/28/2014 1302 EDT Letter sent TMS Telephone Encounter - Zulma Medellin LPN - 01/13/2014 1218 EDT LM for pt to return call. Pt last seen 10/03/13. Pt needs appt to address asthma, reactive airway. TMS documented in this encounter Plan of Treatment Not on filedocumented as of this encounter Visit Diagnoses Not on filedocumented in this encounter Care Teams Integrity Manager Relationship Specialty Start Date End Date Trell Pritchard MD PCP - General 12/19/13 10/26/14 documented as of this encounter
--- OUTSIDE RECORDS SUMMARY | 2021-10-28 15:10 | XMS_ITS | Encounter Summary ---
:1990 Author Organization [facility] Address [address] [place] [address] Care Team Providers Name Role Phone Carmela Sanchez MD Primary Care Provider Reason for Visit Reason Onset Date Comments Other 06/02/2011 Encounter Details Date Type Department Care Team Description 06/02/2011 Telephone [facility] Carmela Sharma MD Other Medicine - [address] [phone] (Wo rk) Social History Tobacco Use Types [...] this encounter Miscellaneous Notes Telephone Encounter - Carmela Sanchez MD - 06/06/2011 0811 EST Noted. Telephone Encounter - Corina Bianchi - 06/02/2011 1143 EST Trang from the A is calling to let Dr. Sanchez know that Dr. Valadez is going to be weaning the pt off her dilantin over the next 20 days. Trang states that no call back is needed unless there are any further questions. documented in this encounter Plan of Treatment Not on filedocumented as of this encounter Visit Diagnoses Not on filedocumented in this encounter Care Teams Elementary School Tutor Relationship Specialty Start Date End Date Carmela Sanchez MD PCP - General 07/30/08 08/13/[address] [place] [phone] documented as of this encounter
--- OUTSIDE RECORDS SUMMARY | 2021-10-28 15:10 | XMS_ITS | Encounter Summary ---
:1990 Author Organization [facility] Address [address] [place] [address] Care Team Providers Name Role Phone Lyric Robbins MD Primary Care Provider Reason for Visit Reason Comments Vaginal Discharge vaginal odor Dysmenorrhea Abdominal Pain Encounter Details Date Type Department Care Team Description 12/31/2012 Office Visit [facility] Pratibha Salvador, Vaginal Discharge (Primary Dx); Women's Services - ACADEMIC ADVISEMENT DIRECTOR Vaginal o manisha [facility] [address] [place] [address] Social History Tobacco Use Types Packs/Day Years [...] Sign Reading Time Taken Comments Blood Pressure 96/54 12/31/2012 1507 EDT Pulse - - Temperature - - [...] Sig Dispensed Refills Start Date End Date metroNIDAZOLE (FLAGYL) 500 Take 1 Tab by 14 Tab 0 201201/07/2013 mg tablet mouth 2 times daily for 7 days. documented in this encounter Discharge Disposition Disposition Code Departure Means Destination Auto Discharge documented in this encounter Progress Notes Pratibha Salvador FNP - 12/31/2012 1546 EDT Vaginal discharge and odor S: 22 yr old P1. Mirena IUD in situ x 2 years. LMP about 2 weeks ago. X 2- 3 weeks heavy yellowish discharge with bad odor. No itch or irritation. + new partner with condoms every time. Previous partner- no condoms. Also reports travelling abdominal cramps. Known IBS. Constipation on and off. No dyspareunia. O: See labs Vulva- scattered hypopigmentation as before has had since childhood Vagina- profuse, watery, parekh discharge with + amine odor. Cervix- no lesion, non-tender, + IUD strings Uterus- AV, NT, nl. ssc Adnexa- no masses, non-tender A: BV P: Metronidazole 500 mg BID x 7d GC/chlamydia probes Mental Hygienist declined by patient I spent a total of 15 minutes in face to face time with this patient and 10 minutes of that time wasspent in counseling and coordination of care as described in the progress note. documented in this encounter Plan of Treatment Not on filedocumented as of this encounter Procedures Procedure Name Priority Date/Time Associated Comments Diagnosis POCT VAGINAL WET PREP Routine 12/31/2012 15:45 Vaginal D ischarge Results for this INCLUDES DENNY EDT Vaginal odor procedure are i n the results section. CHLAMYDIA/N. Routine 12/31/2012 15:44 Vaginal Dischar ge Results for this GONORRHOEAE AMPLIFIED EDT Vaginal odor proced ure are in RNA the results section. documented in this encounter Results (ABNORMAL) POCT VAGINAL WET PREP INCLUDES DENNY (12/31/2012 15:45 EDT) Pathologist Sig nature Clue Cells, POC Present Absent POINT OF CARE (A)Comment: + whiff Trichomonas, POC Absent Absent POINT OF CARE Yeast, POC Absent Absent POINT OF CARE White Blood Cells, Present Absent POINT OF CARE POC (A)Comment: loaded Specimen Other (qualifier value) Performing Organization Address City/State/ZIP Code Phon e Number [facility] POINT OF CARE POINT OF CARE CHLAMYDIA/GC AMPLIFIED (12/31/2012 15:44 EDT) Specimen [facility] Description LAB Chlamydia Result No Chlamydia [facility] trachomatis DNA LAB detected by risk tech mediated amplification. GC Result No Neisseria [facility] gonorrhoeae DNA LAB detected by risk tech mediated amplification. Specimen Other (qualifier value) - Other Performing Organization Address City/State/ZIP Code Phon e Number [facility] [address] [place] [address] [facility] [address] [place] [address] documented in this encounter Visit Diagnoses Diagnosis Vaginal discharge - Primary Leukorrhea, not specified as infective Vaginal odor Unspecified symptom associated with fema le genital organs documented in this encounter Care Teams Gizzard Peeler Relationship Specialty Start Date End Date Lyric Robbins MD PCP - General 10/01/12 12/18/13 8 GABRIEL [facility], [address] [place] [address] documented as of this encounter
--- OUTSIDE RECORDS SUMMARY | 2021-10-28 15:10 | XMS_ITS | Encounter Summary ---
:1990 Author Organization [facility] Address [address] [place] [address] Care Team Providers Name Role Phone Lyric Robbins MD Primary Care Provider Reason for Visit Reason Onset Date Comments Post-ED Follow Up 10/21/2013 Encounter Details Date Type Department Care Team Description 10/21/2013 Telephone [facility] Ira Powers R N Post-ED Follow Up Medicine - [address] [address] Social History Tobacco Use Types [...] this encounter Miscellaneous Notes Telephone Encounter - Ira Persaud RN - 10/21/2013 0687 EDT We see you were in the Emergency Department for seizures on 10/12/13. Are your symptoms improving? Yes Do you have any questions? No: is awaiting a call from her Neurologist at [facility] for if she needsto follow up Can we schedule a follow up visit? No: Advised that we have nurse's on the phones all day and provider's on all night if they require any assistance documented in this encounter Plan of Treatment Not on filedocumented as of this encounter Visit Diagnoses Not on filedocumented in this encounter Care Teams Sack Repairer Relationship Specialty Start Date End Date Lyric Robbins MD PCP - General 10/01/12 12/18/13 8 [facility], [address] [place] [address] documented as of this encounter
--- OUTSIDE RECORDS SUMMARY | 2021-10-28 15:10 | XMS_ITS | Encounter Summary ---
:1990 Author Organization [facility] Address [address] [place] [address] Care Team Providers Name Role Phone Trell Pritchard MD Primary Care Provider Reason for Visit Reason Comments Advice Only Encounter Details Date Type Department Care Team Description 10/26/2014 Office Visit [facility] Grady Philippe Part iaclaude symptomatic Women's Services - epilepsy with complex [place] [address] [facility] [address] partial seizures, not [address] [facility] [address] intractable, with [place], [place] [id number] [place] [address] status epilepticus [phone] ([facility]) (Primary [phone] (Wo rk) Dx) Social History Tobacco Use Types Packs/Day [...] Sign Reading Time Taken Comments Blood Pressure 110/76 10/26/2014 1623 EDT Pulse - - Temperature - - Respiratory Rate - - Oxygen Saturation - - Inhaled Oxygen Concentration - - Weight 76 kg (167 lb 9.6 oz) 10/26/2014 1623 EDT Height 165.1 cm (5' 5) 10/26/2014 1623 EDT Body Mass Index 27.89 10/26/2014 1623 EDT documented in this encounter Functional Status Cognitive Status Response Date of Assessment Because of a physical, mental, or emotional condition, do Ye s 05/14/2011 you have serious difficulty concentrating, remembering, or making decisions? 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 Patient in a relationship with new partner. They are considering having a baby. She is currently using Mirena IUD for contraception. Patient diagnosed with epilepsy following several seizures. She has been seizure free for over a year. Her first seizure was diagnosed during her four years prior. She has had seven total episodes. She camila lamictal at this time for seizure prophylaxis. She is also on prozac for h/o depression. She was off prozac for her last and did not experience post depression. She would like to stop taking prozac prior to this as well. I discussed that she should remain on lamictal at this time. This is a category C medication, and it is better that she not have seizures during . I also stated that she should remain on SSRI if she has symptoms, but she did not want to stay on prozac. I urged her to contact her neurologist (at [facility]) and let them know the plan and see if they have any further recommendations. I ordered 4mg folate, continue vitamin. Patient to stop prozac, continue lamictal. Follow up in 3 weeks for IUD removal, follow up neuro recommendations, and answer any remaining questions. Patient to call with missed period and positive test. I discussed above with Dr. Land, WERNER. Patient to have an MFM consult in the first trimester. 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
--- OUTSIDE RECORDS SUMMARY | 2021-10-28 15:10 | XMS_ITS | Encounter Summary ---
:1990 Author Organization [facility] Address [address] [place] [address] Care Team Providers Name Role Phone Lyric Robbins MD Primary Care Provider Encounter Details Date Type Department Care Team Description 10/01/2012 Results Only [facility] Unknown, Corbin melendez MD Laboratory Services - [facility] [address] [place] [address] Social History Tobacco Use Types [...] Name Priority Date/Time Associated Diagnosis Comme nts SURGICAL PATHOLOGY Routine 10/01/2012 11:20 Resul ts for this EDT procedure are i n the results section. documented in this encounter Results SURGICAL PATHOLOGY (10/01/2012 11:20 EDT) Pathology Report: SURGICAL PATHOLOGY REPORT JUNIOR TRUONG Reports generated via electronic interface contain matthew ginal data; LAB however they are lacking the format of the original re port. Caution should be taken when reading/interpreting unfo rmatted reports. Name: ? RENETTA DAWKINS ? Accession #: ? [id number] ? : ? 1990 (Age: 22) ??F ? Collect Date: ? 10/01/2012 ? Location: ? [facility] ? Receive Date: ? 10/03/19 13 ? Provider: ANEUDY SMITH MD Copy to: ALVARO ANGEL MD ? Final Pathologic Diagnosis: SKIN ARM, LEFT ANTECUBITAL FOSSA, SHAVE BIOPSY: - ??Dermatofibroma. - ??Lesion extends to base of biopsy specimen. Microscopic Description: There is irregular epidermal hyperplasia with basal hyperpigmentation. ??Within the dermis, there is a spindle cell proliferatio n accompanied by histiocytes. The spindle cells have plump nuclei that vary to a mil d degree in size and shape. ??The proliferation is associated with thick bu ndles of collagen (collagen trapping) and areas of sclerosis. Document reviewed and electronically signed by: JAMES BANUELOS MD Report ??Date: 10/03/2012 11:23 By the signature above, the attending physician certif ies that he/she has personally conducted a gross and/or microscopic examin ation of the described specimens and rendered or confirmed the above diagnosi s. Specimen(s) Received: Left arm antecubital fossa Clinical History: Irritated nevus left arm, suspicious for dermatofibrom a; clinical diagnosis code: 216.9 Gross Description: ? Received in formalin labelled with proper patient identification (initials L, E) is a 0.8 x 0.8 cm irre gular shave biopsy of dawn skin. ??There is a central 0.5 x 0.4 x less than 0.1 cm of ovoid dawn, focally dawn -white smooth papule. Kevin Pires 10/02/2012 01:19 PM End of Report Specimen Performing Organization Address City/State/ZIP Code Phon e Number [facility] [address] [place] [address] SERVICES [facility] [address] [place] [address] documented in this encounter Visit Diagnoses Not on filedocumented in this encounter Care Teams Marine Mechanic Relationship Specialty Start Date End Date Lyric Robbins MD PCP - General 10/01/12 12/18/13 8 [facility], [address] [place] [address] documented as of this encounter
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
--- OUTSIDE RECORDS SUMMARY | 2021-10-28 15:10 | XMS_ITS | Encounter Summary ---
:1990 Author Organization [facility] Address [address] [place] [address] Care Team Providers Name Role Phone None, Provider Primary Care Provider Unavailable Reason for Visit Reason Onset Date Comments Seizures 01/01/2012 Encounter Details Date Type Department Care Team Description 01/01/2012 Orders Only [facility] Adult Lulu Burton Spells (Primary Dx) Neurology - Main Brannon cotter MD [address] [place] [address] Social History Tobacco Use Types [...] as of this encounter Visit Diagnoses Diagnosis Spells - Primary Other convulsions documented in this encounter Care Teams Treasury Accountant Relationship Specialty Start Date End Date None, Provider PCP - General 11/29/11 09/30/12 documented as of this encounter
--- OUTSIDE RECORDS SUMMARY | 2021-10-28 15:10 | XMS_ITS | Encounter Summary ---
:1990 Author Organization [facility] Address [address] [place] [address] Care Team Providers Name Role Phone Lyric Robbins MD Primary Care Provider Reason for Referral Consult (Routine) - Closed Specialty Diagnoses / Procedures Referred By Contact Refer red To Contact Diagnoses Encounter for smoking cessation counseling Trell Pritchard MD [address] [facility] [address] [place] [address] Referral ID Status Reason Start Date Expiration Date Visits V isits Requested Authorized [id number] Closed Specialty 10/03/2013 1 1 Services Required Question Answer What areas would you like the CHT to focus on? Tobacco Cessation Patient's Weight (kg) (1 lb = 0.4536 kg): 62.596 Comments As we discussed in your visit today, quinten eone will be contacting you from the [facility] Team to schedule an alejo ointment with you. If you do not hear from the CHT within a week please call the [facility] Team at [phone]. Reason for Visit Reason Comments Smoking Cessation would like to discuss chanti x Encounter Details Date Type Department Care Team Description 10/03/2013 Office Visit [facility] Unknown, Corbin melendez MD Encounter for smoking Family Medicine - Trell Pritchard MD [address] [facility] [address] [facility] [address] [place] [address] cessation counseling Dylan (Primary Dx) [address] [place] [address] Social History Tobacco Use Types Packs/Day Years [...] Sign Reading Time Taken Comments Blood Pressure 94/62 10/03/2013 1633 EDT Pulse 76 10/03/2013 1633 EDT Temperature - - Respiratory Rate - - Oxygen Saturation - - Inhaled Oxygen Concentration - - Weight 62.6 kg (138 lb) 10/03/2013 1633 EDT Height - - Body Mass Index 22.96 10/01/2012 1010 EDT documented in this encounter Functional Status Cognitive Status Response Date of Assessment Because of a physical, mental, or emotional condition, do Ye s 05/14/2011 you have serious difficulty concentrating, remembering, or making decisions? (5 years old or older) documented as of this encounter Ordered Prescriptions Prescription Sig Dispensed Refills Start Date End Date varenicline (CHANTIX) 1 Take 1 tablet twice 60 Tab 0 07/201307/31/2014 mg tabletIndications: daily after the Encounter for smoking seven days of using cessation counseling the.5 mg tablets.. varenicline (CHANTIX) 0.5 Take 1 tablet PO 11 Tab 0 09/0807/31/2014 mg tabletIndications: daily X 3 days, then Encounter for smoking 1 tablet PO twice cessation counseling daily times 4 days then stop and initiate 1 mg tablets.. varenicline (CHANTIX) 1 Take 1 tablet twice 60 Tab 0 07/201310/03/2013 mg tablet daily after the seven days of using the.5 mg tablets.. varenicline (CHANTIX) 0.5 Take 1 tablet PO 11 Tab 0 09/0810/03/2013 mg tablet daily X 3 days, then 1 tablet PO twice daily times 4 days then stop and initiate 1 mg tablets.. documented in this encounter Progress Notes Randall Chatman MD - 10/05/2013 0937 EDT Attestation statement: I discussed the patient with the resident/fellow at the time of the visit andagree with the findings and plan of care. Randall Chatman MD 10/05/2013 9:37 Trell Ybarra MD - 10/03/2013 7370 EDT Subjective: Patient ID: Renetta Bradley is an 23 y.o. female. Chief Complaint Patient presents with ??? Smoking Cessation would like to discuss chantix HPI Comments: Wants to quit smoking. Smoking since age 13. Now smoking 1/2 ppd. Quit for 1 1/2 years during and after . Restarted after she split with Giuseppe's father last year. She has tried multiple things to quit, including patches and gum without success. Takes lamictal for epilepsy, has rare nocturnal seizures, never documented on EEG. Not on any other medications other than OCPs. Had a hard time with depression in [place], was on prozac for a little but decided she did not want to be on meds for mood and has been doing well ever since. No current thoughts of depression or suicide. 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 He other reasons for quitting are that she wants better teeth, better breath, less smelly clothes, and more money in her pocket. Patient Active Problem List Diagnosis ??? Left [...] to Visit Medication Sig Dispense Refill ??? ibuprofen (MOTRIN) 600 mg tablet Take 1 Tab by mouth every 8 hours as needed for Pain. 90 Tab 2 ??? lamotrigine (LAMICTAL) 25 mg tablet Take [...] ??? Smoking status: Current Every Day Smoker -- 0.25 packs/day for 7 years Types: Cigarettes ??? Smokeless tobacco: Never Used ??? Alcohol Use: 0 - .5 oz/week 0-1 drink(s) per week Review of Systems Respiratory: Negative for cough and shortness of breath. Cardiovascular: Negative for chest pain. Psychiatric/Behavioral: Negative for suicidal ideas, hallucinations and substance abuse. The patientis not nervous/anxious. - See HPI Objective: BP 94/62 Pulse 76 Wt 62.596 kg (138 lb) BMI 22.96 kg/m2 Physical Exam Nursing note and vitals reviewed. Constitutional: She is oriented to person, place, and time. She appears well- developed and well-nourished. No distress. HENT: Head: Normocephalic and atraumatic. Cardiovascular: Normal rate, regular rhythm and normal heart sounds. Exam reveals no gallop and no friction rub. No murmur heard. Pulmonary/Chest: Effort normal and breath sounds normal. No respiratory distress. She has no wheezes. Neurological: She is alert and oriented to person, place, and time. Skin: Skin is warm and dry. No rash noted. She is not diaphoretic. Psychiatric: She has a normal mood and affect. Her behavior is normal. Judgment and thought content normal. Assessment: Plan: Renetta was seen today for smoking cessation. Diagnoses and associated orders for this visit: Encounter for smoking cessation counseling: pt has remote history of mild depression but not currently depressed and not on antidepressant medications. Pt with seizure disorder. Chantix with <1% risk of seizures and no identifiable contraindications to using chantix in someone with seizure disorderor on AEDs. Discussed risks and benefits of medication and pt agrees to trying chantix. Discussed setting a quit date and she agrees to do this before starting the medication, 2-3 weeks from now. - varenicline (CHANTIX) 0.5 mg tablet; Take 1 tablet PO daily X 3 days, then 1 tablet PO twice dailytimes 4 days then stop and initiate 1 mg tablets.. - varenicline (CHANTIX) 1 mg tablet; Take 1 tablet twice daily after the seven days of using the.5 mg tablets.. - Amb Consult/Follow Up Community Care Team- for smoking cessation - Pt has lots of info about the quit line and other smoking resources Pt discussed with Dr. Compa Pritchard Family Medicine PGY-2 10/04/2013 documented in this encounter Plan of Treatment Scheduled Referrals Name Type Priority Associated Diagnoses Order S chedule AMB CONS/FOLLOW UP Outpatient Referral Routine Encounter for O rdered: [facility] smoking cessation 2013 TEAM counseling documented as of this encounter Visit Diagnoses Diagnosis Encounter for smoking cessation counseli ng - Primary Counseling on substance use and abuse documented in this encounter Discontinued Medications Medication Sig Discontinue Reason Start Date End Date varenicline (CHANTIX) 1 Take 1 tablet twice 10/10/2013 10/03/2013 mg tablet daily after the seven days of using the.5 mg tablets.. varenicline (CHANTIX) Take 1 tablet PO Reorder 10/03/2013 0.5 mg tablet daily X 3 days, then 1 tablet PO twice daily times 4 days then stop and initiate 1 mg tablets.. documented as of this encounter Care Teams Clinical Support Nurse Relationship Specialty Start Date End Date Lyric Robbins MD PCP - General 10/01/12 12/18/13 [address] [facility] [place] [address] documented as of this encounter
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
--- OUTSIDE RECORDS SUMMARY | 2021-10-28 15:10 | XMS_ITS | Encounter Summary ---
:1990 Author Organization [facility] Address [address] [place] [address] Care Team Providers Name Role Phone Tricia Otero Primary Care Provider Unavailable Reason for Visit Reason Comments Seizures Patient had a seizure while she slept Positive urinary incontienceand she bit her tongue. Presents now with headache, nausea, anddizziness. Had menses for 1 and 1/2 months just fi nished 2 days ago. Patient is awake and alert. Encounter Details Date Type Department Care Team Description 10/17/2011 Emergency [facility] Carlos Alberto Enciso MD [address] [facility] [place] [address] Seizure disorder Emergency Department Emergency, MD Jeff ([facility]) - [facility] [address] [place] [address] Social History Tobacco Use Types [...] Sign Reading Time Taken Comments Blood Pressure 102/59 10/17/2011 1330 EDT Pulse 99 10/17/2011 1052 EDT Temperature 36.6 ??C (97.9 ??F) 10/17/2011 1052 EDT Respiratory Rate 16 10/17/2011 1330 EDT Oxygen Saturation 100% 10/17/2011 1330 EDT Inhaled Oxygen Concentration - - Weight 80.7 kg (178 lb) 10/17/2011 1052 EDT Height 165.1 cm (5' 5) 10/17/2011 1052 EDT Body Mass Index 29.62 10/17/2011 1052 EDT documented in this encounter Functional Status Cognitive Status Response Date of Assessment Because of a physical, mental, or emotional condition, do Ye s 05/14/2011 you have serious difficulty concentrating, remembering, or making decisions? (5 years old or older) documented as of this encounter Discharge Instructions Deni Roy MD - 10/17/2011 Images from the original note were not included. Please call your neurologist in the next few days to schedule an appointment. Until you see your neurologist please take the prescribed medication: Keppra (Levetiracetam) 500 mg tablet (taken orally) twice a day Please call your PCP and schedule an appointment as needed. [facility] Patient Instructions Seizure in Adults: After Your Visit Your Care Instructions Seizures result from abnormal patterns of electrical signals in the brain. Seizures are different from person to person. Some people have only slight shaking of a hand and do not pass out. Other peoplemay pass out and have violent shaking of the whole body. Some people briefly lose touch with their beebe rroundings and appear to stare into space. Although awake, they cannot respond normally, and afterwards may not remember what happened. Further testing may be necessary to identify the type and cause of the seizures. A seizure may occur only once or it may be repeated. Taking medications as directed and following upwith your doctor may help prevent recurrent seizures. Follow-up care is a borden part of your treatment and safety. Be sure to make and go to all appointments, and call your doctor if you are having problems. It???s also a good idea to know your test resultsand keep a list of the medicines you take. How can you care for yourself at home? ?? Take your medicines exactly as prescribed. Call your doctor if you think you are having a problemwith your medicine. ?? Do not drive a car, operate machinery, swim, climb ladders, or do any other activity that could be dangerous to you or others until your doctor says it is safe to do so. ?? Be sure that anyone treating you for any health problem knows that you have had a seizure and what medicines you are taking for it. ?? Identify and avoid things that may make you more likely to have a seizure, such as lack of sleep,alcohol or drug use, stress, or not eating. ?? Make sure you go to your follow-up appointment. When should you call for help? Call 911 anytime you think you may need emergency care. For example, call if: ?? You have another seizure and it lasts longer than 3 minutes. ?? You have more than one seizure in 24 hours. ?? You have new symptoms such as: ?? Numbness, tingling, or weakness on one side of your body or face. ?? Vision changes. ?? Trouble speaking or thinking clearly. Call your doctor now or seek immediate medical care if: ?? You have another seizure. Watch closely for changes in your health, and be sure to contact your doctor if you have any problems. Where can you learn more? Go to www.[email or web address]net/fahc Enter M769 in the search box to learn more about Seizure in Adults: After Your Visit. ?? [phone] [employer], [employer]. Care instructions adapted under license by [facility] This care instruction is for use with your licensed healthcare professional. If you have questions about a medical condition or this instruction, always ask your healthcare professional. Regino herreraChippmunk, [employer] disclaims any warranty or liability for your use of this information. Content Version: 9.2.587253; Last Revised: December 28, 2009 documented in this encounter Medications at Time of Discharge Medication Sig Dispensed Refills Start Date End Date ALBUTEROL INHL Inhale as directed as 0 05/29/2012 needed. ibuprofen (MOTRIN) 600 Take 1 Tab by mouth 90 Tab 2 05/1007/31/2014 mg tabletIndications: every 8 hours as Migraines needed for Pain. levetiracetam (KEPPRA) Take 1 Tab by mouth 2 60 Tab 0 06/22/2012 500 mg tablet times daily. LEVONORGESTREL (MIRENA by Intrauterine 0 04/24/2016 IU) route. methocarbamol (ROBAXIN) Take 1 Tab by mouth 3 90 Tab 2 0 05/24/2011 06/22/2012 500 mg times daily as tabletIndications: Back needed. spasm documented as of this encounter Ordered Prescriptions Prescription Sig Dispensed Refills Start Date End Date levetiracetam (KEPPRA) 500 Take 1 Tab by 60 Tab 0 201106/22/2012 mg tablet mouth 2 times daily. documented in this encounter Discharge Disposition Disposition Code Departure Means Destination Home or Self Intermediate documented in this encounter ED Notes Carlos Alberto Enciso MD - 10/17/2011 1312 EDT I performed a history and exam of Renetta Bradley and discussed the case with the resident. I reviewed this individual's note and I concur with the documented findings and plan of care. Pt states she never rec'd neuro appt after last visit; she was supposed to have EEG. I notified Dr. Valadez; he is going to arrange for EEG and neuro fu. It is unclear whether pt had a sz. Will start her on keppra. 4 Aleta Galindo, KELSI - 10/17/2011 1150 EDT Blood drawn via saline lock per protocol, tiger and purple tube(s) sent to lab per order. documented in this encounter Miscellaneous Notes Scanned Note-Null - ARMY RANGER, SCAN 2 - 10/20/2011 2134 EDT canned Note- Null - ARMY RANGER, SCAN 2 - 10/19/2011 0726 EDT canned Note- Null - AR[employer] RANGER, SCAN 2 - 10/17/2011 2153 EDT D Resident - Deni Artis MD - 10/17/2011 1147 EDT DOS: 10/17/2011 Chief Complaint Patient presents with ??? Seizures Patient had a seizure while she slept Positive urinary incontienceand she bit her tongue. Presents now with headache, nausea, anddizziness. Had menses for 1 and 1/2 months just finished 2 days ago. Patient is awake and alert. The patient is a 21 y.o. female who presents today with Seizures The history is provided by the patient. Seizures This is a chronic problem. Episode onset: Believes had seizure while asleep as woke up at 8:30 am and saw had bit tongue, vomited, had urinary incontinence. There was 1 seizure. Associated symptoms include sleepiness, headaches, nausea and vomiting. Characteristics include bladder incontinence and bittongue. The episode was not witnessed. The seizures did not continue in the ED. Focality: unwitnessed but patient with left-sided complaints now. Possible causes include med or dosage change. stopped topiramate 2 weeks ago because of gum swelling and bleeding There has been no fever. Associated symptoms comments: Feels still is post-ictal.. Review of Systems Eyes: Positive for photophobia. Gastrointestinal: Positive for nausea and vomiting. Genitourinary: Positive for bladder incontinence. Neurological: Positive for seizures, numbness and headaches. Hematological: Reports had gum swelling and bleeding, she believes occurred after starting topamax, because of this stopped topamax. Also has irregular long periods, on IUD Past Medical History Diagnosis Date ??? Acid [...] Quit date: 09/29/2010 ??? Alcohol Use: 0.0 oz/week not drinking for 3 weeks Family History Problem Relation Age of Onset ??? Depression Mother ??? Depression Maternal Grandfather severe ??? Hypertension Maternal Grandfather ??? Diabetes Maternal Grandfather ??? Cancer Paternal Grandmother Vital Signs Temp: 36.6 ??C (97.9 ??F) Temp src: Oral Pulse: 99 Heart Rate: 59 BPM Resp: 13 SpO2: 100 % BP: 99/64 mmHg BP Device: BP Machine BP Cuff Location: Right arm O2 Device: None (Room air) Physical Exam Constitutional: She is oriented to person, place, and time. She appears well- developed and well-nourished. No distress. HENT: Blood on anterior tongue Cardiovascular: Normal rate and regular rhythm. No murmur heard. Pulmonary/Chest: Breath sounds normal. No respiratory distress. Abdominal: Soft. Bowel sounds are normal. She exhibits no distension. There is no tenderness. Neurological: She is alert and oriented to person, place, and time. She displays normal reflexes. A cranial nerve deficit is present. 4/5 left neck abduction 4/5 left thigh flexion Decreased sensation over left V3 distribution but otherwise sensation intact to V1,V2,V3 and good jaw clench bilaterally Horizontal nystagmus, provoked with sitting up. Otherwise CN intact, 5/5 str, sensation intact to LT, DTR 2+, normal FTN, Skin: Skin is warm and dry. Radiology orders: None Procedures Basic Metabolic Panel Lab Results Component Value Date NA 139 10/17/2011 K 4.7 10/17/2011 CL 102 10/17/2011 CO2 28 10/17/2011 BUN 9* 10/17/2011 CREATININE 0.62 10/17/2011 CALCGFR >60 10/17/2011 Complete Blood Count Lab Results Component Value Date ABO O 02/14/2011 WBC 9.33 10/17/2011 RBC 5.02 10/17/2011 HGB 16.0* 10/17/2011 HCT 46.3* 10/17/2011 MCV 92 10/17/2011 MCH 31.9 10/17/2011 MCHC 34.6 10/17/2011 PLT 229 10/17/2011 RDWCV 13.0 10/17/2011 Calcium 9.1 Phos 3.0 Magnesium 2.2 ED Course: A medical screening exam was performed. Patient was given IV ativan .5 mg, had BMP, CBC, Ca, Mg, Phos labs measured. All returned wnl. Because patient discontinued topiramate due to side effect, patient started on levetiracetam 500 mg PO BID and given first dose in ED. Disposition: Discharged The patient's pain was managed to an adequate level weighing risk vs. benefit of further medications. Upon departure from the Emergency Department, the patient's pain was 0 on a zero to ten scale. Condition at departure from the Emergency Department: Stable Discharge Prescriptions New Prescriptions LEVETIRACETAM (KEPPRA) 500 MG TABLET Take 1 Tab by mouth 2 times daily. MDM Number of Diagnoses or Management Options Seizure disorder: Diagnosis management comments: Given symptoms are consistent with patient's past seizure history likely did have seizure. Given recently stopped anti-epileptic have a good cause for seizure. Does have neuro deficits but not consistent with a particular lesion. Given gave history of gum bleeds could also check for a bleed. ordered BMP, CBC, Ca, Mg, Phos. These showed no electrolyte abnormalities, no leukocytosis, no anemia. Gave .5 mg Ativan IV for antiepileptic coverage now and since patient stopped topiramate due to sideeffect will start on levetiracetam 500 mg PO BID. First dose given in ED. Amount and/or Complexity of Data Reviewed Clinical lab tests: ordered Review and summarize past medical records: yes Patient Progress Patient progress: stable 1. Seizure disorder PCP: CARMELA Thompson 10/17/2011 13:22 documented in this encounter Plan of Treatment Not on filedocumented as of this encounter Procedures Procedure Name Priority Date/Time Associated Comments Diagnosis SCREENING GLUCOSE STAT 10/17/2011 11:43 Result s for this EDT procedure are i n the results section. COMPLETE BLOOD COUNT STAT 10/17/2011 11:43 Res ults for this AND DIFFERENTIAL EDT procedure a re in the results section. BUN STAT 10/17/2011 11:43 Results for this EDT procedure are i n the results section. PHOSPHORUS STAT 10/17/2011 11:43 Results for this EDT procedure are i n the results section. MAGNESIUM STAT 10/17/2011 11:43 Results for this EDT procedure are i n the results section. CREATININE STAT 10/17/2011 11:43 Results for this EDT procedure are i n the results section. CALCIUM STAT 10/17/2011 11:43 Results for this EDT procedure are i n the results section. ELECTROLYTES STAT 10/17/2011 11:43 Results for this EDT procedure are i n the results section. documented in this encounter Results (ABNORMAL) HEMAGRAM AND DIFFERENTIAL (10/17/2011 11:43 EDT) Pathologist Sig nature WBC 9.33 4.0 - 12.4 K/cmm [facility] RBC 5.02 3.86 - 5.04 M/cmm [facility] Hemoglobin 16.0 (H) 11.6 - 15.2 gm/dl [facility] HCT 46.3 (H) 34.9 - 44.4 % [facility] MCV 92 81 - 98 fl [facility] MCH 31.9 26.7 - 33.3 pg [facility] MCHC 34.6 32.1 - 35.9 gm/dl [facility] PLT 229 141 - 320 K/cmm [facility] RDW-CV 13.0 11.7 - 14.6 % [facility] Neutrophils 86.8 (H) 45.5 - 79.7 % [facility] Lymphocytes 11.6 (L) 15.0 - 46.8 % [facility] Monocytes 1.2 (L) 1.8 - 12.0 % [facility] Eosinophils 0.3 (L) 0.6 - 6.9 % [facility] Basophils 0.1 (L) 0.2 - 1.4 % [facility] ABS Neutrophils 8.09 2.20 - 8.85 K/cmm [facility] ABS Lymphs 1.09 1.09 - 3.30 K/cmm [facility] ABS Monocytes 0.11 0.1 - 0.8 K/cmm [facility] ABS Eosinophils 0.03 0.03 - 0.61 K/cmm [facility] ABS Basophils 0.01 0.01 - 0.11 K/cmm [facility] Type of Diff: Automated [facility] Specimen Blood specimen (specimen) Performing Organization Address City/[facility]/ZIP Code Phon e Number [facility] [address] [place] [address] SERVICES [facility] [address] [place] [address] PHOSPHORUS (10/17/2011 11:43 EDT) Pathologist Sig nature Phosphorus 3.0 2.5 - 4.5 mg/dl [facility] Specimen Blood specimen (specimen) Performing Organization Address City/[facility]/ZIP [facility] Phon e Number [facility] [address] [place] [address] SERVICES [facility] [address] [place] [address] MAGNESIUM (10/17/2011 11:43 EDT) Pathologist Sig nature Magnesium 2.2 1.7 - 2.8 mg/dl [facility] Specimen Blood specimen (specimen) Performing Organization Address City/[facility]/ZIP [place] [facility] Phon e Number [facility] [address] [place] [address] SERVICES [facility] [address] [place] [address] CALCIUM (10/17/2011 11:43 EDT) Pathologist Sig nature Calcium 9.1 8.5 - 10.5 mg/dl [facility] Calculated Calcium 9.1 8.5 - 10.5 mg/dl [facility] Specimen Blood specimen (specimen) Performing Organization Address City/[facility]/ZIP [place] [facility] Phon e Number [facility] [address] [place] [address] SERVICES [facility] [address] [place] [address] SCREENING GLUCOSE (10/17/2011 11:43 EDT) Pathologist Sig nature Glucose, Screening 92 70 - 100 mg/dl [facility] Specimen Blood specimen (specimen) Performing Organization Address [facility] Phon e Number [facility] [address] [place] [address] SERVICES [facility] [address] [place] [address] CREATININE (10/17/2011 11:43 EDT) Pathologist Sig nature Creatinine 0.62 0.52 - 1.04 mg/dl [facility] GFR, Calculated >60 >60 ml/min/1.73m2 [facility] Specimen Blood specimen (specimen) Performing Organization Address [facility] Phon e Number [facility] [address] [place] [address] SERVICES [facility] [address] [place] [address] (ABNORMAL) BUN (10/17/2011 11:43 EDT) Pathologist Sig nature BUN 9 (L) 10 - 26 mg/dl [facility] Specimen Blood specimen (specimen) Performing Organization Address [facility] Phon e Number [facility] [address] [place] [address] SERVICES [facility] [address] [place] [address] ELECTROLYTES (10/17/2011 11:43 EDT) Pathologist Sig [facility] Sodium 139 136 - 145 mEq/L [facility] Potassium 4.7 3.5 - 5.0 mEq/L [facility] Chloride 102 96 - 110 mEq/L [facility] CO2 28 24 - 32 mEq/L [facility] Specimen Blood specimen (specimen) Performing Organization Address [facility] Phon e Number [facility] [address] [place] [address] SERVICES [facility] [address] [place] [address] documented in this encounter Visit Diagnoses Diagnosis Seizure disorder (HCC-CMS) (HCC) Unspecified epilepsy without mention of intractable epilepsy documented in this encounter Administered Medications Inactive Administered Medications - up to 3 most recent administrations Medication Order MAR Action Action Date Dose Rate Site levetiracetam (KEPPRA) tablet 500 mg Given 10/17/2011 12:45 EDT 500 mg 500 mg, oral, NOW X1, 1 dose, On Sun10/17/11 at 1215, STAT lorazepam (ATIVAN) injection 0.5 mg Given 10/17/2011 11:52 EDT 0.5 mg 0.5 mg, intravenous, NOW X1, 1 dose, On Sun10/17/11 at 1200, STAT documented in this encounter Discontinued Medications Medication Sig Discontinue Reason Start Date End Date topiramate (TOPAMAX) 25 Take 1 Tab by mouth 08/14/2011 10/17/2011 mg tablet 2 times daily. topiramate (TOPAMAX) 25 Take 1 Tab by mouth 08/14/2011 10/17/2011 mg tablet 2 times daily. documented as of this encounter Active and Recently Administered Medications Times are shown in EDT. Scheduled Medication Order 10/15/2011 10/16/2011 10/17/2011 levetiracetam (KEPPRA) tablet 500 mg (COMPLETED) 1245 (Given - Provider: Aleta Ennis, KELSI) 500 mg, Oral, NOW X1, 1 dose, Sun10/17/11 at 1215 lorazepam (ATIVAN) injection 0.5 mg (COMPLETED) 1152 (Given - Provider: Aleta Ennis, KELSI) 0.5 mg, Intravenous, NOW X1, 1 dose, Sun10/17/11 at 1200 documented in this encounter Orders Medications Ordered That Might Not Have Count Last Ord ered Date First Ordered Date Been Administered topiramate (TOPAMAX) tablet 25 mg 1 10/17/2011 Nursing Count Last Ordered Date First Ordered Date INSERT PERIPHERAL IV 10/17/2011 PULSE OXIMETRY 1 10/17/2011 documented in this encounter Care Teams Executive Director [employer] Relationship Specialty Start Date End Date Tricia Otero PA PCP - General 08/14/11 11/28/11 documented as of this encounter
--- OUTSIDE RECORDS SUMMARY | 2021-10-28 15:10 | XMS_ITS | Encounter Summary ---
:1990 Author Organization [facility] Address [address] [place] [address] Care Team Providers Name Role Phone Lyric Robbins MD Primary Care Provider Reason for Visit Reason Comments Seizures sz hx, ran out of lamictal a bout 2 weeks ago, had unwitnessed sz this afternoon, and also per pt. this AM around 0730, no recall, was found by boyfriend, bit tounge, compl ains of BYRNES and neck pain. Arrives in cervical collar [facility]. Encounter Details Date Type Department Care Team Description 10/12/2013 Emergency [facility] Merlin Lanier MD [address] [place] [address], [address] [place] [address] Seizure disorder Emergency Department Emergency, MD Jeff ([facility]) (Primary Dx) - [address] [address] Social History Tobacco Use Types [...] Sign Reading Time Taken Comments Blood Pressure 108/59 10/12/20132228 EDT Pulse 70 10/12/20132228 EDT Temperature 37.2 ??C (99 ??F) 10/12/20132025 EDT Respiratory Rate 16 10/12/20132228 EDT Oxygen Saturation 100% 10/12/20132228 EDT Inhaled Oxygen Concentration - - Weight 63.5 kg (140 lb) 10/12/20132025 EDT Height 165.1 cm (5' 5) 10/12/20132025 EDT Body Mass Index 23.3 10/12/20132025 EDT documented in this encounter Functional Status Cognitive Status Response Date of Assessment Because of a physical, mental, or emotional condition, do Ye s 05/14/2011 you have serious difficulty concentrating, remembering, or making decisions? (5 years old or older) documented as of this encounter Discharge Instructions InstructionsClMerlin johansen MD - 10/12/2013 Take the Lamictal 25 mg each day for 2 days, then 50 mg each day. Call your neurologist at [facility] to confirm your daily dosage of Lamictal, and to inform the office of your recent seizure. Follow-up with Dr. Robbins as needed. documented in this encounter Medications at Time [...] by Intrauterine 0 04/24/2016 IU) route. varenicline (CHANTIX) Take 1 tablet PO 11 Tab 0 10/04/19 14 07/31/2014 0.5 mg daily X 3 days, then tabletIndications: 1 tablet PO twice Encounter for smoking daily times 4 days cessation counseling then stop and initiate 1 mg tablets.. varenicline (CHANTIX) 1 Take 1 tablet twice 60 Tab 0 07/201307/31/2014 mg tabletIndications: daily after the seven Encounter for smoking days of using the.5 cessation counseling mg tablets.. documented as of this encounter Discharge Disposition Disposition Code Departure [place] Destination Home or Self Care Walk-out Home documented in this encounter ED Notes Adriana Reddy RN - 10/12/20132237 EDT DC instructions reviewed with pt. Pt verbalized understanding, denies questions. Pt dc'd to home in stable condition. Merlin Newsome MD - 10/12/20132047 EDT DOS: 10/12/2013 Chief Complaint Patient presents with ??? Seizures sz hx, ran out of lamictal about 2 weeks ago, had unwitnessed sz this afternoon, and also per pt. this AM around 0730, no recall, was found by boyfriend, swati bernadine, complains of BYRNES and neck pain. Arrives in cervical collar [facility]. The patient is a 23 y.o. female who presents today with Seizures HPI Comments: I, Joel Edward, am scribing for Dr. Lanier while he/she is personally performing the service. Joel Edward 10/12/2013 20:49 The patient is a 23 y.o. female who presents for seizure. The patient has significant past medical history for convulsions, phenytoin poisoning. The patient is prescribed Lamictal but has not had access to it for 2 weeks. The patient states thatthis morning while asleep she had generalized seizures. The patient states that her boyfriend woke up to her having seizures. Prior to this she reports that she has not had seizures in approximately 4 months. This evening at approximately 1930 the patient states that she has no recollection of a second seizure that she had in the bathroom. She reports being found by her boyfriend with bleeding from the tongue. During this seizure she reports urinary incontinence. The patient has had generalized weakness, headache and photophobia since her prior seizure. The patient reports a history of migraines after seizures. Seizures Seizure activity on arrival: no Seizure type: Unable to specify Preceding symptoms comment: Unable to specify Episode characteristics: tongue biting Postictal symptoms comment: Headache, generalized weakness Severity: Moderate Progression: Resolved Context comment: Inability for the patient to obtain her prescription medications Recent head injury: No recent head injuries History of seizures: yes The history is provided by the patient. Review of Systems Constitutional: Negative for fever and chills. Eyes: Positive for photophobia. Negative for visual disturbance. Respiratory: Negative for shortness of breath. Cardiovascular: Negative for chest pain. Genitourinary: Negative for flank pain. Neurological: Positive for seizures, weakness and headaches. Negative for syncope. Psychiatric/Behavioral: Negative for confusion. All other systems [...] - .5 oz/week 0-1 drink(s) per week Family History Problem Relation Age of Onset ??? Depression Mother ??? Depression Maternal Grandfather severe ??? Hypertension Maternal Grandfather ??? Diabetes Maternal Grandfather ??? Cancer Paternal Grandmother Vital Signs Vitals Reassessment?: Yes Temp: 37.2 ??C (99 ??F) Temp src: Oral Pulse: 70 Resp: 16 SpO2: 100 % BP: 108/59 mmHg BP Device: BP Machine Patient Position: Supine BP Cuff Location: Right arm O2 Device: None (Room air) Physical Exam Nursing note and vitals reviewed. Constitutional: She is oriented to person, place, and time. She appears well- developed and well-nourished. No distress. HENT: Head: Normocephalic and atraumatic. Multiple bite romero of the lips and tongue consistent with seizures. Eyes: Pupils are equal, round, and reactive to light. Neck: Neck supple. Diffuse tenderness midline and both Paraspinous areas of the neck Cardiovascular: Normal rate, regular rhythm and intact distal pulses. Pulmonary/Chest: Effort normal and breath sounds normal. No respiratory distress. She has no wheezes. She has no rales. Abdominal: She exhibits no distension. Musculoskeletal: She exhibits no edema. Neurological: She is alert and oriented to person, place, and time. Skin: Skin is warm and dry. No rash noted. Psychiatric: She has a normal mood and affect. Her behavior is normal. Thought content normal. CERVICAL SPINE 2-3 VIEWS Final result not shown here.: Radiology orders: CERVICAL SPINE 2-3 VIEWS Imaging Results CERVICAL SPINE 2-3 VIEWS (Final result) Result time: 10/13/13 09:33:32 Final result Narrative: CERVICAL SPINE 2-3 VIEWS 10/12/2013 9:25 PM Signs and Symptoms/Comments: neck pain status post seizure with fall Comparison: Cervical spine radiographs dated 05/03/2008 Findings: AP, lateral, swimmers, odontoid views of the cervical spine redemonstrate nonspecific straightening of the normal cervical lordosis, unchanged from comparison dated 05/03/2008 possibly related to the collar. On the AP view patient's neck is tilted to the left. Alignment is otherwise within normal limits. There is no evidence of fracture. Vertebral body heights are and intervertebral disc spaces are maintained. The soft tissues are normal. An anatomical variant of elongated left-sided transverse process of C7 is incidentally noted. Impression: Negative radiographs of the cervical spine. I have personally reviewed the images and the above interpretation and agree with the findings. Procedures ED Course: A 23 year old female presents for seizures. A medical screening exam was performed. Examination concerning for seizures. The patient was given 600 mg ibuprofen tablet for headache. Cervical Spine 2-3 views performed on the patient. Images reviewed and interpreted by me and reviewed and discussed with radiology. results significant for: no acute abnormalities. 10/12/2013 22:00 The patient will need to be tapered up to her normal dose of lamotrigine. I cleared the patient from her cervical collar. The patient was administered 25 mg lamotrigine for seizures. Prior to discharge usual and customary precautions were reviewed with the patient and/or family including follow-up instructions and reasons to return to the Emergency Department if condition worsens, does not improve as expected, or other new concerns arise. The patient was discharged in a stable, improved condition after being evaluated for seizures with instructions to follow up with her neurologist for reevaluation and medication adjustment. The patientwas provided a work note. Disposition: Discharged The patient's pain was managed to an adequate level weighing risk vs. benefit of further medications. Upon departure from the Emergency Department, the patient's pain was 9 on a zero to ten scale. Condition at departure from the Emergency Department: Improved ED Current Prescriptions None MDM Number of Diagnoses or Management Options Seizure disorder: Diagnosis management comments: 4 Amount and/or Complexity of Data Reviewed Tests in the radiology section of CPT??: ordered and reviewed Discussion of test results with the performing providers: yes Review and summarize past medical records: yes Independent visualization of images, tracings, or specimens: yes Final diagnoses: Seizure disorder PCP: Lyric Robbins MD 10/14/2013 14:35 Adriana ordonez RN - 10/12/20132042 EDT Pt requesting something to drink. Pt found to have removed C Collar and thrown it on the floor. Pt informed on need and reasoning for keeping C Collar on. C Collar reapplied. Pt instructed that we needto wait until seen by an MD for ok to drink. Pt verbalized understanding. documented in this encounter Plan of Treatment Not on filedocumented as of this encounter Procedures Procedure Name Priority Date/Time Associated Diagnosis Comme nts CERVICAL SPINE 2-3 STAT 10/12/2013 21:25 Resul ts for this VIEWS EDT procedure are i n the results section. documented in this encounter Results CERVICAL SPINE 2-3 VIEWS (10/12/2013 21:25 EDT) Anatomical Region Laterality Modality Other Specimen Narrative [facility] - 10/13/2013 9:33 EDT CERVICAL SPINE 2-3 VIEWS ??10/12/2013 9:25 PM Signs and Symptoms/Comments: neck pain status post seizure with fall Comparison: Cervical spine radiographs dated 05/03/19 09 Findings: AP, lateral, swimmers, odontoid views of the cervical spine redemonstrate nonspecific straightening of the normal cervical lordosis, unchanged from comparison date d 05/03/2008 possibly related to the collar. On the AP view patient's neck is tilted to the left. Alignment is otherwise within normal singletary its. There is no evidence of fracture. Vertebral body heights are and intervertebral disc spaces are maintained. The soft tissues are nor mal. An anatomical variant of elongated left-sided transverse process of C7 is incidentally noted. Impression: Negative radiographs of the cervical spine. I have personally reviewed the images an d the above interpretation and agree with the findings. Procedure Note 10/13/2013 CERVICAL SPINE 2-3 VIEWS 10/12/2013 9:25 P M Signs and Symptoms/Comments: neck pain status post seizure with fall Comparison: Cervical spine radiographs dated 05/03/19 09 Findings: AP, lateral, swimmers, odontoid views of the cervical spine redemonstrate nonspecific straightening of the normal cervical lordosis, unchanged from comparison date d 05/03/2008 possibly related to the collar. On the AP view patient's neck is tilted to the left. Alignment is otherwise within normal singletary its. There is no evidence of fracture. Vertebral body heights are and intervertebral disc spaces are maintained. The soft tissues are nor mal. An anatomical variant of elongated left-sided transverse process of C7 is incidentally noted. Impression: Negative radiographs of the cervical spine. I have personally reviewed the images an d the above interpretation and agree with the findings. Performing Organization Address City/State/ZIP Code Phon e Number [facility] documented in this encounter Visit Diagnoses Diagnosis Seizure disorder ([facility] ([facility]) - Prima ry Unspecified epilepsy without mention of intractable epilepsy documented in this encounter Administered Medications Inactive Administered Medications - up to 3 most recent administrations Medication Order MAR Action Action Date Dose Rate Site ibuprofen (MOTRIN) 600 mg tablet 1 dose, Starting on 10/12/13 at 2105, Until Sun at 2106 ibuprofen (MOTRIN) tablet 600 mg Given 10/12/2013 21:06 EDT 600 mg 600 mg, oral, NOW X1, 1 dose, On 10/12/13 at 2115, STAT lamoTRIgine (LAMICTAL) tablet 25 mg Given 10/12/2013 22:38 EDT 25 mg 25 mg, oral, NOW X1, 1 dose, On 10/12/13 at 2200, STAT documented in this encounter Active and Recently Administered Medications Times are shown in EDT. Scheduled Medication Order 10/10/2013 10/11/2013 10/12/2013 ibuprofen (MOTRIN) tablet 600 mg (COMPLETED) 2105 (Given - Provider: Adriana Reddy RN) 600 mg, oral, NOW X1, 1 dose, 10/12/13 at 2115, STAT lamoTRIgine (LAMICTAL) tablet 25 mg (COMPLETED) 2237 (Given - Provider: Adriana Reddy RN) 25 mg, oral, NOW X1, 1 dose, 10/12/13 at 2200, STAT documented in this encounter Care Teams Staff Anesthetist Relationship Specialty Start Date End Date Lyric Robbins MD PCP - General 10/01/12 12/18/13 [address] [facility], [address] [place] [address] documented as of this encounter
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
--- OUTSIDE RECORDS SUMMARY | 2021-10-28 15:10 | XMS_ITS | Encounter Summary ---
:1990 Author Organization [facility] Address [address] [place] [address] Care Team Providers Name Role Phone Carmela Sanchez MD Primary Care Provider Reason for Visit Reason Onset Date Comments Follow-up 05/15/2011 Encounter Details Date Type Department Care Team Description 05/15/2011 Telephone [facility] Carmela Sharma MD Follow-up Medicine [address] [address] [phone] (Wo rk) Social History Tobacco Use Types [...] this encounter Miscellaneous Notes Telephone Encounter - Corina Bianchi - 05/15/2011 1209 EST Hospital Discharge Follow up We see you were recently in the hospital on the Family Practice Service Are your symptoms improving? Do you have any questions? Can we schedule a follow up visit? Pt scheduled to be seen 05/16/[address] Sanchez Pt was unable to talk but did confirm she would be here for apt tomorrow 05/16/11 with AJ @ 1147 documented in this encounter Plan of Treatment Not on filedocumented as of this encounter Visit Diagnoses Not on filedocumented in this encounter Care Teams Fruit Buying Grader Relationship Specialty Start Date End Date Carmela Sanchez MD PCP - General 07/30/08 08/13/[address] [place] [address] [phone] documented as of this encounter
--- OUTSIDE RECORDS SUMMARY | 2021-10-28 15:10 | XMS_ITS | Encounter Summary ---
:1990 Author Organization [facility] Address [address] [place] [address] Care Team Providers Name Role Phone Carmela Sanchez MD Primary Care Provider Reason for Visit Reason Onset Date Comments Follow-up 07/26/2011 Encounter Details Date Type Department Care Team Description 07/26/2011 Telephone [facility] Carmela Sharma MD Follow-up [address] [address] [phone] (Wo rk) Social History Tobacco Use Types Packs/Day Years Used Date Former Smoker Cigarettes 1 7 Quit: 09/08/19 11 Smokeless Tobacco: Former User Q uit: 09/29/2010 Alcohol Use Standard Drinks/Week Comments Yes [id number] (1 standard drink = 0.6 oz pure [...] Notes Telephone Encounter - Corina Bianchi - 07/26/2011 1156 EDT Care and Concern Call We see you were recently in the Emergency room for cough, URI. Care and concern call made. Left message for the patient to call our office if still symptomatic or has any question/concerns. documented in this encounter Plan of Treatment Not on filedocumented as of this encounter Visit Diagnoses Not on filedocumented in this encounter Care Teams Manager Assisted Living Relationship Specialty Start Date End Date Carmela Sanchez MD PCP - General 07/30/08 08/13/[address] [place] [phone] documented as of this encounter
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
--- OUTSIDE RECORDS SUMMARY | 2021-10-28 15:10 | XMS_ITS | Encounter Summary ---
:1990 Author Organization [facility] Address [address] [place] [address] Care Team Providers Name Role Phone Trell Pritchard MD Primary Care Provider Reason for Visit Reason Comments Arm Injury i think i sprained my elbow reports having her left arm shut in a car door this morning. reports l imited ROM due to pain and tightness Encounter Details Date Type Department Care Team Description 10/14/2014 Emergency [facility] Marzena Tellez, DEVENDRAC [address] [phone] Elbow sprain, left, Emergency Department - Emergency, MD Jeff initial encounter [facility] [place] (Primary Dx) [address] [place] [address] Social History Tobacco Use Types Packs/Day Years [...] Sign Reading Time Taken Comments Blood Pressure 130/74 10/14/2014 1726 EDT Pulse 110 10/14/2014 1726 EDT Temperature 37.4 ??C (99.3 ??F) 10/14/2014 1726 EDT Respiratory Rate 18 10/14/2014 1726 EDT Oxygen Saturation 100% 10/14/2014 1726 EDT Inhaled Oxygen Concentration - - Weight 72.6 kg (160 lb) 10/14/2014 1726 EDT Height 165.1 cm (5' 5) 10/14/2014 1726 EDT Body Mass Index 26.63 10/14/2014 1726 EDT documented in this encounter Functional Status Cognitive Status Response Date of Assessment Because of a physical, mental, or emotional condition, do Ye s 05/14/2011 you have serious difficulty concentrating, remembering, or making decisions? (5 years old or older) documented as of this encounter Discharge Instructions InstructionsAl Tellez - 10/14/2014 The x-ray shows no evidence of fracture. Ice the elbow and use Motrin for pain control documented in this encounter Medications at Time of Discharge Medication Sig Dispensed Refills Start Date End Date albuterol 90 Inhale 1 Puff as 1 Inhaler 0 07/31/20142019 mcg/actuation inhaler directed every 6 hours as needed for Wheezing FLUoxetine (PROZAC) 20 Take 1 Cap by mouth 30 Cap 3 07/0905/24/2015 mg capsule daily lamotrigine (LAMICTAL) Take 1 pill every [...] Means Destination Home or Self Care Walk-out documented in this encounter ED Notes Al Tellez - 10/16/2014 1608 EDT DOS: 10/14/2014 Chief Complaint Patient presents with ??? Arm Injury i think i sprained my elbow reports having her left arm shut in a car door this morning. reports limited ROM due to pain and tightness HPI The patient is a 24 y.o. female who presents today with Arm Injury HPI 24-year-old female who presents with an injury to the left elbow. She actually shut a car door on her arm this morning and has pain just in the elbow area. Reports painful range of motion. No pain in the forearm or numbness in the hand. Review of Systems Review of Systems Constitutional: Negative for fever and chills. Eyes: Negative for visual disturbance. Respiratory: Negative for shortness of breath. Cardiovascular: Negative for chest pain. Gastrointestinal: Negative for nausea, vomiting, abdominal pain, diarrhea and constipation. Genitourinary: Negative for dysuria. Musculoskeletal: Positive for arthralgias (Left elbow). Negative for back pain and neck stiffness. Skin: Negative for rash. Neurological: Negative for headaches. Psychiatric/Behavioral: Negative for confusion. All other systems reviewed and are negative. The patient's past medical, family and social history was reviewed and updated as needed. Allergies Allergen Reactions ??? Sulfa (Sulfonamide Antibiotics) Anaphylaxis ??? Bee Pollens Anaphylaxis Vital Signs Temp: 37.4 ??C (99.3 ??F) Temp src: Temporal Pulse: 110 Resp: 18 SpO2: 100 % BP: 130/74 mmHg BP Device: BP Machine Patient Position: Sitting BP Cuff Location: Right arm O2 Device: None (Room air) Physical Exam Constitutional: She appears well-developed and well-nourished. HENT: Head: Normocephalic and atraumatic. Nose: Nose normal. Neck: Normal range of motion. Neck supple. No tracheal deviation present. Cardiovascular: Normal rate, regular rhythm and normal heart sounds. Pulmonary/Chest: Breath sounds normal. No respiratory distress. Musculoskeletal: Normal range of motion. Tenderness over the olecranon without any focal bony tenderness elsewhere. Has full range of motion with intact sensation and distal pulses. Neurological: She is alert. She has normal strength. No sensory deficit. Skin: No rash noted. Psychiatric: She has a normal mood and affect. Nursing note and vitals reviewed. RESULTS Radiology orders: ELBOW 3 OR MORE VIEWS Imaging Reviewed. I have independently reviewed the images. There are no significant abnormalities Procedures ED COURSE A medical screening exam was performed. X-ray shows no evidence of acute fracture or joint effusion. Was discharged home in good condition ASSESSMENT AND PLAN Final diagnoses: Elbow sprain, left, initial encounter ED Current Prescriptions None DISPOSITION: Discharged The patient's pain was managed to an adequate level weighing risk vs. benefit of further medications. Upon departure from the Emergency Department, the patient's pain was 6 on a zero to ten scale. Condition at departure from the Emergency Department: Stable PCP: Trell Pritchard MD MDM Number of Diagnoses or Management Options Elbow sprain, left, initial encounter: Diagnosis management comments: 4 Merlin Weinstein was available for supervision. 10/16/2014 16:08 No flowsheet data found. documented in this encounter Plan of Treatment Not on filedocumented as of this encounter Procedures Procedure Name Priority Date/Time Associated Diagnosis Comme nts ELBOW 3 OR MORE STAT 10/14/2014 18:06 Results for this VIEWS EDT procedure are i n the results section. documented in this encounter Results ELBOW 3 OR MORE VIEWS (10/14/2014 18:06 EDT) Anatomical Region Laterality Modality Other Specimen Narrative [facility] - 10/14/2014 18:19 EDT ELBOW 3 OR MORE VIEWS ??10/14/2014 6:06 PM Signs and Symptoms/Comments: Crush injury to the elbow with point te nderness over olecranon Comparison: July 02, 2009. Findings: Left elbow AP, oblique and lateral views are obtained and compared with the prior study. No acute fracture, dislocation or left elbow joint effusion demonstrated. Procedure Note Javier Jackson MD - 10/14/2014 ELBOW 3 OR MORE VIEWS 10/14/2014 6:06 PM Signs and Symptoms/Comments: Crush injury to the elbow with point te nderness over olecranon Comparison: July 02, 2009. Findings: Left elbow AP, oblique and lateral views are obtained and compared with the prior study. No acute fracture, dislocation or left elbow joint effusion demonstrated. Performing Organization Address City/State/ZIP Code Phon e Number [facility] documented in this encounter Visit Diagnoses Diagnosis Elbow sprain, left, initial encounter - Primary documented in this encounter Care Teams Garde Manger Relationship Specialty Start Date End Date Trell Pritchard MD PCP - General 12/19/13 10/26/14 documented as of this encounter
--- OUTSIDE RECORDS SUMMARY | 2021-10-28 15:10 | XMS_ITS | Encounter Summary ---
:1990 Author Organization [facility] Address [address] [place] [id number] Care Team Providers Name Role Phone Carmela Sanchez MD Primary Care Provider Reason for Visit Reason Onset Date Comments Abnormal Lab 05/25/2011 Encounter Details Date Type Department Care Team Description 05/25/2011 Telephone [facility] Ester Coppola MD Abnormal Lab Medicine - [address] [phone] (Wo rk) Social History Tobacco Use Types [...] this encounter Miscellaneous Notes Telephone Encounter - Ester Mohamud MD - 05/25/2011 1352 EST I informed her that her dilantin level is a bit low. We agreed that we would not change her dose. The low level may be due to her having missed one or more doses recently. I also informed her that her liver enzymes remain elevated. I advised that they be checked again in about 2 weeks. I mentioned the possibility of GI evaluation if they remain elevated, and she was receptive to this. Ester Mohamud MD documented in this encounter Plan of Treatment Not on filedocumented as of this encounter Visit Diagnoses Diagnosis Elevated LFTs - Primary Other abnormal blood chemistry documented in this encounter Care Teams Workers Compensation Claims Examiner Relationship Specialty Start Date End Date Carmela Sanchez MD PCP - General 07/30/08 08/13/[address] [place] [phone] documented as of this encounter
--- OUTSIDE RECORDS SUMMARY | 2021-10-28 15:10 | XMS_ITS | Encounter Summary ---
:1990 Author Organization [facility] Address [address] [place] [address] Care Team Providers Name Role Phone Carmela Sanchez MD Primary Care Provider Reason for Visit Reason Comments Follow-up IUD check. Encounter Details Date Type Department Care Team Description 05/29/[address] [facility] Jie Robbins APRN Metrorrhagia; Women's Services [facility] Dysmenorrhea; [address] Dyspareunia [address] [place] [address] [address] [place] [phone] (Wo rk) Social History Tobacco [...] Sign Reading Time Taken Comments Blood Pressure 110/70 05/29/2011 1448 EST Pulse - - Temperature - - Respiratory Rate - - Oxygen Saturation - - Inhaled Oxygen Concentration - - Weight 77.3 kg (170 lb 6.4 oz) 05/29/2011 1448 EST Height - - Body Mass Index 28.36 05/13/2011 1746 EST documented in this encounter Functional Status Cognitive Status Response Date of Assessment Because of a physical, mental, or emotional condition, do Ye s 05/14/2011 you have serious difficulty concentrating, remembering, or making decisions? (5 years old or older) documented as of this encounter Ordered Prescriptions Prescription Sig Dispensed Refills Start Date End Date norgestimate-ethinyl Take 1 Tab by mouth 3 Each 1 201107/24/2011 estradiol (ORTHO daily. TRI-CYCLEN LO) 0.18/0.215/0.25 mg-25 mcg tablet documented in this encounter Discharge Disposition Disposition Code Departure Means Destination Auto Discharge documented in this encounter Progress Notes Jie Robbins CNM - 05/29/2011 1711 EST S: Had IUD placed about a month ago - not happy with symptoms Having irregular bleeding, pain during intercourse, and cramping - wants IUD out O: Declined exam A: IUD with metroragghia, dysmenorrhea and dypareunia P: Discuss what to expect in first 3 months of Mirena insert After discussion - agree to use orthotricyclen for 3 months to see if she can get past these symptoms. Will take @ the same time as she take dilantin. But it is IUD providing contraception. [facility]. F/U 2 months documented in this encounter Plan of Treatment Not on filedocumented as of this encounter Visit Diagnoses Diagnosis Metrorrhagia Dysmenorrhea Dyspareunia documented in this encounter Care Teams Technology Specialist Relationship Specialty Start Date End Date Carmela Sanchez MD PCP - General 07/30/08 08/13/[address] [place] [phone] documented as of this encounter
--- OUTSIDE RECORDS SUMMARY | 2021-10-28 15:10 | XMS_ITS | Encounter Summary ---
:1990 Author Organization [facility] Address [address] [place] [address] Care Team Providers Name Role Phone Tricia Otero Primary Care Provider Unavailable Reason for Visit Reason Comments Pharyngitis started this am Encounter Details Date Type Department Care Team Description 08/26/2011 Hospital Encounter [facility] Khadar Perrin, Throat pain Urgent [facility] - [facility] [address] [address] [place], [place] [phone] (Wo rk) Social History Tobacco Use Types [...] Sign Reading Time Taken Comments Blood Pressure 132/81 08/26/2011 1848 EDT Pulse 89 08/26/2011 1848 EDT Temperature 37 ??C (98.6 ??F) 08/26/2011 1848 EDT Respiratory Rate 16 08/26/2011 1848 EDT Oxygen Saturation - - Inhaled Oxygen [...] encounter Discharge Instructions Khadar Graves MD - 08/26/2011 Your sore throat symptoms are most likely due to a virus. We will call you if the strep throat culture test comes back positive and need to start an antibiotic. You may use ibuprofen, no more than 600 mg every 6 hours as needed for throat pain- during this illenss. You may also use acetaminophen, no more than 1000mg every 8 hours. Continue to drink plenty of fluids. Get rest. If you have worsening symptoms, difficulty breathing or are unable to swallow, follow up acutely. Use good hand hygiene to help protect spreading this to you child. AttachmentsThe following attachments cannot be sent through Care Everywhere.SORE THROAT: AFTER YOUR VISIT ([place])documented in this encounter Medications at Time of [...] Code Departure Means Destination Home or Self Senior Living documented in this encounter ED Notes Khadar Perrin MD - 08/26/2011 1954 EDT DOS: 08/26/2011 Chief Complaint Patient presents with ??? Pharyngitis started this am The patient is a 21 y.o. female who presents today with Pharyngitis HPI Comments: Patient is here with concern of soret throat starting this am. Also feels neck on bothsides is swollen. Denies any specific sick contacts. She denies any fevers. She has had sore throatsin the past, but not quite like this. She has not tried any medications for it. She has a 6-month-old son at home, and wants to help prevent spreading infection to him. She wanted to make sure louis swollen feeling in her neck was nothing serious No other new concerns or problems today. The history is provided by the patient. Pharyngitis This is a new problem. The current episode started 6 to 12 hours ago. There has been no fever. Pertinent negatives include no congestion, no ear pain, no swollen glands and no cough. Associated symptoms comments: Glen more difficult to take a deep breath- feels like a lump in the throat. Neck feels swollen on both sides.. She has had no exposure to strep or mono. Exposure to: Works in the public. She has tried nothing for the symptoms. Review of Systems Constitutional: Negative for fever, chills and fatigue. HENT: Positive for sore throat and neck pain (to touch anteriorly on both sides.). Negative for ear pain, congestion and sinus pressure. Swollen feeling in neck Respiratory: Negative for cough and wheezing. Cardiovascular: Negative for chest pain. No current facility-administered medications for this encounter. Current Outpatient Prescriptions Medication Sig Dispense Refill ??? topiramate (TOPAMAX) 25 mg tablet Take 1 Tab by mouth 2 times daily. 140 Tab 1 ??? LEVONORGESTREL (MIRENA IU) by [...] Sulfa(Sulfonamide Antibiotics) Anaphylaxis ??? Bee Pollens Anaphylaxis Past Medical History Diagnosis Date ??? Acid [...] Maternal Grandfather ??? Cancer Paternal Grandmother BP 132/81 Pulse 89 Temp(Src) 98.6 ??F (37 ??C) (Temporal) Resp 16 ? No Physical Exam Nursing note and vitals reviewed. Constitutional: She is oriented to person, place, and time. She appears well- developed and well-nourished. No distress. HENT: Head: Normocephalic and atraumatic. Right Ear: Hearing, tympanic membrane, external ear and ear canal normal. Left Ear: Hearing, tympanic membrane, external ear and ear canal normal. Mouth/Throat: Uvula is midline and oropharynx is clear and moist. No oropharyngeal exudate, posterior oropharyngeal edema, posterior oropharyngeal erythema or tonsillar abscesses. Eyes: Conjunctivae are normal. Neck: Normal range of motion. Neck supple. No obvious swelling of the neck. Slight tenderness in anterior chain, to palpation. Cardiovascular: Normal rate, regular rhythm, normal heart sounds and intact distal pulses. Exam reveals no gallop and no friction rub. No murmur heard. Pulmonary/Chest: Effort normal and breath sounds normal. No respiratory distress. She has no wheezes. She has no rales. Lymphadenopathy: She has cervical adenopathy (mild anterior chain). Neurological: She is alert and oriented to person, place, and time. Skin: She is not diaphoretic. Psychiatric: She has a normal mood and affect. Her behavior is normal. Thought content normal. Consult orders: None PCP: Tricia Otero PA Results for orders placed during the hospital encounter of 08/26/11 POCT RAPID STREP SCREEN Component Value Range Rapid Strep Test, POC Negative Negative Background Clear? Yes Control Line Present Yes Rgt A + Rgt B= Yellow: Yes Culture Sent to Lab? Yes Radiology orders: None Procedures Assessment and plan, Course: A medical screening exam was performed. Patient is a 21 y.o. female with 1 day history of sore throat and anterior neck soreness. Exam is overall unremarkable. No evidence of complication, abscess or oropharyngeal compromise. No evidence of neck pathology. Rapid strep negative. Discussed differential and etiology with patient- Likely viral in origin. Culture taken- clinic to call if positive to start antibiotics. To continue supportive care- rest, fluids. To follow up acutely if evidence of complication or worsening symptoms as we discussed. Otherwise to follow up if failing to improve and as needed. Disposition: Discharged The patient's pain was managed to an adequate level weighing risk vs. benefit of further medications. Upon departure from the [facility], the patient's pain was 3 on a zero to ten scale. Condition at departure from the Walk In [facility]: Stable 1. Throat pain RAPID STREP, PHARYNGITIS CULTURE, RAPID STREP, PHARYNGITIS CULTURE, POCT RAPID STREP SCREEN, POCT RAPID STREP SCREEN No supervision required. MDM Signed: Khadar Perrin MD 08/26/2011 22:42 ATFNorm weaver RN - 08/26/2011 8289 EDT No cough Just a sore throat No cold Has a 6 month old son she kissed and is worried documented in this encounter Miscellaneous Notes Scanned Note-Null - HR SHARED SERVICES CONSULTANT, SCAN 2 - 09/01/2011 0641 EDT documented in this encounter Plan of Treatment Not on filedocumented as of this encounter Procedures Procedure Name Priority Date/Time Associated Diagnosis Comme nts POCT RAPID STREP STAT 08/26/2011 19:09 Throat pain Results for this SCREEN EDT procedure are i n the results section. GROUP A STREP STAT 08/26/2011 18:50 Throat pain Results fo r this CULTURE EDT procedure are i n the results section. documented in this encounter Results POCT RAPID STREP SCREEN (08/26/2011 19:09 EDT) Pathologist Sig nature Rapid Strep Test, POC Negative Negative POINT OF CARE Background Clear? Yes POINT OF CARE Control Line Present Yes POINT OF CARE Rgt A + Rgt B= Yellow: Yes POINT OF CARE Culture Sent to Lab? Yes POINT OF CARE Specimen Other (qualifier value) Performing Organization Address City/State/ZIP Code Phon e Number [facility] POINT OF CARE POINT OF CARE PHARYNGITIS CULTURE (08/26/2011 18:50 EDT) Specimen Throat [facility] Description LAB Specimen Performed at [facility] Description [facility], LAB [place], [place] Result No group A beta PACHECO TOMASZ streptococci LAB isolated. Usual jackson-pharyngeal cassandra. Report Status 08/28/2011 Final [facility] LAB Specimen Throat Specimen Performing Organization Address City/[facility]/ZIP Code Phon e Number [facility] [address] [place] [address] SERVICES [facility] [address] [place] [address] documented in this encounter Visit Diagnoses Diagnosis Throat pain documented in this encounter Care Teams Bearing Grinder Relationship Specialty Start Date End Date Tricia Otero PA PCP - General 08/14/11 11/28/11 documented as of this encounter
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
--- OUTSIDE RECORDS SUMMARY | 2021-10-28 15:10 | XMS_ITS | Encounter Summary ---
:1990 Author Organization [facility] Address [address] [place] [address] Care Team Providers Name Role Phone None, Provider Primary Care Provider Unavailable Reason for Referral [facility] [employer] (Routine/Next Available) - Closed Specialty Diagnoses / Procedures Referred By Contact Refer red To Contact Diagnoses Surveillance of previously prescribed intrauterine contraceptive device Pratibha Salvador FNP Procedures VENEER PULLER US PELVIS TRANSVAGINAL [address] [place] [address] Referral ID Status Reason Start Date Expiration Date Visits Requ ested Visits Authorized [id number] Closed 05/16/2012 1 1 Reason for Visit Reason Comments Vaginal Discharge White/yellow discharge - Sta rted in February. Encounter Details Date Type Department Care Team Description 05/16/2012 Office Visit [facility] Pratibha Salvador Surveil lance of previously prescribed intrauterine contraceptive device (Primary Dx); Women's Services - WET COTTON FEEDER Vaginal D ischarge [facility] [address] [place] [address] Social History Tobacco Use Types Packs/Day Years [...] Sign Reading Time Taken Comments Blood Pressure 110/62 05/16/2012 1606 EST Pulse - - Temperature - - Respiratory Rate - - Oxygen Saturation - - Inhaled Oxygen Concentration - - Weight 78.5 kg (173 lb) 05/16/2012 1606 EST Height 165.1 cm (5' 5) 05/16/2012 1606 EST Body Mass Index 28.79 05/16/2012 1606 EST documented in this encounter Functional Status Cognitive Status Response Date of Assessment Because of a physical, mental, or emotional condition, do Ye s 05/14/2011 you have serious difficulty concentrating, remembering, or making decisions? (5 years old or older) documented as of this encounter Progress Notes Pratibha Salvador, WET COTTON FEEDER - 05/16/2012 1658 EST Vaginal discharge S: C/o white or yellow bothersome vaginal discharge. No itch or irritation. Mirena IUD x 14 mos. Erratic spotting. Has had a more identifiable flow onset Feb. 1 x 5 days to nowspotting. Also last month. States cramps on and off. + new partner. Inconsistent condoms. 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 Was told to have a follow up ultrasound in 2- 3 mos. O: Wet smear entirely neg. Vulva- normal Vagina- pink with minimal old blood from cervical os. Otherwise no discharge Cervix- + strings, non-tender to motion Uterus is AF, firm, mobile, non-tender Adnexa- no masses felt, non-tender A: 22 yr old P1 with Mirena IUD in situ x 1 year No evidence for infection Pt. Reported ovarian cysts and advised repeat ultrasound STD check P: See orders, GC/chlamydia probe I spent a total of15 minutes in face to face time with this patient and 20 minutes of that time was spent in counseling and coordination of care as described in the progress note. Evaluator declined by patient Wendy llamas - 05/16/2012 1630 EST Urine test was negative. Results given to SANDY Verdin. Wendy Carcamo documented in this encounter Plan of Treatment Not on filedocumented as of this encounter Procedures Procedure Name Priority Date/Time Associated Diagnosis Comme nts VENEER PULLER US PELVIS Routine 05/22/2012 16:38 Surveillance of Results for this TRANSVAGINAL EST previously prescribed proced ure are in intrauterine the results contraceptive device section . POCT VAGINAL WET PREP Routine 05/16/2012 16:57 Surveillance of Results for this INCLUDES DENNY EST previously prescribed proced ure are in intrauterine the results contraceptive de vice section. Vaginal Discharge CHLAMYDIA/N. Routine 05/16/2012 16:56 Surveillance of Results for this GONORRHOEAE AMPLIFIED EST previously prescrib ed procedure are in RNA intrauterine the results contraceptive de vice section. Vaginal Discharge POCT TEST, Routine 05/16/2012 4:15 Surveillance of R esults for this VISUAL READ EST previously prescribed proced ure are in intrauterine the results contraceptive device section . documented in this encounter Results VENEER PULLER US PELVIS TRANSVAGINAL (05/22/2012 16:38 EST) Anatomical Region Laterality Modality Other Specimen Narrative [facility] - 05/22/2012 16:43 EST Indication: Pelvic pain: left lower quadrant pain. Suspected ovarian cyst: previously seen on outside ultrasound. 12/19 USG elsewhere. Gynecological Ultrasonography: Uterus: normal,anteverted. Size: Longitudinal 82 mm. Anterio- poste rior 32 mm. Transverse 48 mm. Volume: 65.9 ml. Cervix: normal. Myometrium: normal. Endometrium: endometrium clearly visuali zed. Endometrium thickness total: 3.8 mm. IUCD: the Mirena IUD is correctly placed at the fundus of the uterus. ?? Right Ovary: normal. Right Ovary size: 25 mm x 21 mm x 16 mm. Volume: 4.4 ml. Left Ovary: normal. Left Ovary size: 23 mm x 18 mm x 24 mm. Volume: 5.2 ml. Cul de Sac / Pouch of Jaison: no free f luid visible. Report Summary: Overall impression: Normal pelvic scan. No ovarian cysts seen. Mirena IUD correctly placed in the fundu s. Follow- up: yariel/ Pratibha Salvador if pain reoc curs. Procedure Note 05/22/2012 Indication: Pelvic pain: left lower quadrant pain. Suspected ovarian cyst: previously seen on outside ultrasound. 12/19 USG elsewhere. Gynecological Ultrasonography: Uterus: normal,anteverted. Size: Longitudinal 82 mm. Anterio- poste rior 32 mm. Transverse 48 mm. Volume: 65.9 ml. Cervix: normal. Myometrium: normal. Endometrium: endometrium clearly visuali zed. Endometrium thickness total: 3.8 mm. IUCD: the Mirena IUD is correctly placed at the fundus of the uterus. Right Ovary: normal. Right Ovary size: 25 mm x 21 mm x 16 mm. Volume: 4.4 ml. Left Ovary: normal. Left Ovary size: 23 mm x 18 mm x 24 mm. Volume: 5.2 ml. Cul de Sac / Pouch of Jaison: no free f luid visible. Report Summary: Overall impression: Normal pelvic scan. No ovarian cysts seen. Mirena IUD correctly placed in the fundu s. Follow- up: w/ Pratibha Salvador if pain reoc curs. Performing Organization Address [facility]/ZIP Code Phon e Number [facility] MATERNAL MEDICINE ACC [facility] POCT VAGINAL WET PREP INCLUDES DENNY (05/16/2012 16:57 EST) Pathologist Sig nature Clue Cells, POC Absent Absent POINT OF CARE Trichomonas, POC Absent Absent POINT OF CARE Yeast, POC Absent Absent POINT OF CARE White Blood Cells, POC Absent Absent POINT OF CARE Specimen Other (qualifier value) Performing Organization Address [facility]/ZIP Code Phon e Number [facility] POINT OF CARE POINT OF CARE CHLAMYDIA/GC AMPLIFIED (05/16/2012 16:56 EST) Specimen [facility] Description LAB Chlamydia Result No Chlamydia [facility] trachomatis DNA LAB detected by zone manager mediated amplification. GC Result No Neisseria [facility] gonorrhoeae DNA LAB detected by zone manager mediated amplification. Specimen Other (qualifier value) - Other Performing Organization Address [facility]/ZIP Code Phon e Number [facility] [address] [place] [address] SERVICES [facility] [address] [place] [address] POCT URINE TEST (05/16/2012 4:15 EST) Pathologist Sig nature Test, Negative Reference Range, POINT OF CARE Urine, POC Negative Control Line Present Yes POINT OF CARE Background Clear? Yes POINT OF CARE Specimen Urine (substance) Performing Organization Address [facility]/ZIP [facility] Phon e Number [facility] POINT OF CARE POINT OF CARE documented in this encounter Visit Diagnoses Diagnosis Surveillance of previously prescribed in trauterine contraceptive device - Primary Vaginal discharge Leukorrhea, not specified as infective documented in this encounter Care Teams Billet Bed Operator Relationship Specialty Start Date End Date None, Provider PCP - General 11/29/11 09/30/12 documented as of this encounter
[2021-10-28 15:11] VITALS: BP 133/96; PULSE 79; O2SAT 98
--- OUTSIDE RECORDS SUMMARY | 2021-10-28 15:11 | XMS_ITS | Encounter Summary ---
:1990 Author Organization [facility] Address [address] [place] [id number] Care Team Providers Name Role Phone Carmela Sanchez MD Primary Care Provider Reason for Visit Reason Onset Date Comments Other 03/23/2011 Encounter Details Date Type Department Care Team Description 03/23/2011 Telephone [facility] Carmela Sharma MD Other Medicine - [address] [phone] (Wo rk) Social History Tobacco Use Types Packs/Day Years Used Date Former Smoker Cigarettes 7 Quit: 09/08/19 11 Smokeless Tobacco: Former [...] mental, or emotional condition, do Ye s 02/16/2011 you have serious difficulty concentrating, remembering, or making decisions? 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 Can they do maternal - child health assessment? elephone Encounter - Naida Alvarado - 03/24/2011 1659 EST Trang from [facility] called back, wanted to let us know that new orders are due on Sunday from Dr Sanchez. elephone Encounter - Katiana Tucker - 03/23/2011 1502 EST [facility] got a referral from [facility]. For neurological assessments. This is not something that [facility] usually does. The patient is also going to be away for a week at her grandmothers in [place]. What do you want [facility] to be doing for her ? They will not be able to see her for the first week as she will be out of the area documented in this encounter Plan of Treatment Not on filedocumented as of this encounter Visit Diagnoses Not on filedocumented in this encounter Care Teams Supervisor Purification Relationship Specialty Start Date End Date Carmela Sanchez MD PCP - General 07/30/08 08/13/[address] [place] [phone] documented as of this encounter
--- OUTSIDE RECORDS SUMMARY | 2021-10-28 15:11 | XMS_ITS | Encounter Summary ---
:1990 Author Organization [facility] Address [address] [place] [address] Care Team Providers Name Role Phone Carmela Sanchez MD Primary Care Provider Reason for Visit Reason Onset Date Comments Other 02/10/2011 MULTIPLE SYMPTOMS Encounter Details Date Type Department Care Team Description 02/10/2011 Telephone [facility] Romana Andersen RN Other (MULTIPLE Women's Services - Main [facility]) [place] [address] [place] [address] Social History Tobacco Use Types Packs/Day Years Used Date Former Smoker Cigarettes 7 Smokeless Tobacco: Former User Q uit: 09/29/2010 [...] 13:04 EST documented as of this encounter Miscellaneous Notes Telephone Encounter - Romana Andersen RN - 02/10/2011 3412 EDT Voicemail from patient complaining of having the flu. Has nausea, cramps,diarrhea, back and pelvicpain. Tisha Lynch CNM patient registration clerk, to contact patient at [phone]. documented in this encounter Plan of Treatment Not on filedocumented as of this encounter Visit Diagnoses Not on filedocumented in this encounter Care Teams Band Sawyer Relationship Specialty Start Date End Date Carmela Sanchez MD PCP - General 07/30/08 08/13/11 [address] [place] [phone] documented as of this encounter
--- OUTSIDE RECORDS SUMMARY | 2021-10-28 15:11 | XMS_ITS | Encounter Summary ---
:1990 Author Organization [facility] Address [address] [place] [address] Care Team Providers Name Role Phone Carmela Sanchez MD Primary Care Provider Encounter Details Date Type Department Care Team Description 02/24/2011 Orders Only [facility] Meredith Camp MD Candidal skin Family Medicine - [address] infection (Primary Dx) [place], [place] [address] [phone] [place] [address] Social History Tobacco Use Types [...] Sig Dispensed Refills Start Date End Date Miscellaneous Medication Apply 1 Squirt 1 Tube 1 011 03/23/2011 - See Admin topically 2 times InstructionsIndications: daily. Candidal skin infection documented in this encounter Plan of Treatment Not on filedocumented as of this encounter Visit Diagnoses Diagnosis Candidal skin infection - Primary Candidiasis of skin and nails documented in this encounter Care Teams Production Manager Relationship Specialty Start Date End Date Carmela Sanchez MD PCP - General 07/30/08 08/13/[address] [place] [phone] documented as of this encounter
--- OUTSIDE RECORDS SUMMARY | 2021-10-28 15:11 | XMS_ITS | Encounter Summary ---
:1990 Author Organization [facility] Address [address] [place] [address] Care Team Providers Name Role Phone Carmela Sanchez MD Primary Care Provider Reason for Visit Reason Onset Date Comments Labs Only 04/27/2011 Encounter Details Date Type Department Care Team Description 04/27/[address] [facility] Carmela Sharma MD Labs Only Medicine - [address] [phone] (Wo rk) Social History Tobacco Use Types [...] this encounter Miscellaneous Notes Telephone Encounter - Gabrielle Leonard LPN - 04/27/2011 1533 EST Patent had to cancel appointment today due to transportation. She is requesting another dilantin level. Forward to provider to decide her appointment has been moved to May 24, 2011. I was supervised by Ester Mohamud MD who was present and immediately available in the office suite. Gabrielle Leonard LPN 04/27/2011 15:34 elephone Encounter - Corina Bianchi - 04/27/2011 1515 EST Pt is calling and would like to know what she should have her labs drawn again to have her Dilantin level checked. documented in this encounter Plan of Treatment Not on filedocumented as of this encounter Results PHENYTOIN (05/01/2011 14:55 EST) Pathologist Sig nature Phenytoin 18.7 10.0 - 20.0 ug/ml [facility] Specimen Blood specimen (specimen) Performing Organization Address City/State/ZIP Code Phon e Number [facility] [address] [place] [address] SERVICES [facility] [address] [place] [address] documented in this encounter Visit Diagnoses Diagnosis Seizure disorder (HCC-CMS) (HCC) - Prima ry Unspecified epilepsy without mention of intractable epilepsy documented in this encounter Care Teams Check Embosser Relationship Specialty Start Date End Date Carmela Sanchez MD PCP - General 07/30/08 08/13/[address] [place] [phone] documented as of this encounter
--- OUTSIDE RECORDS SUMMARY | 2021-10-28 15:11 | XMS_ITS | Encounter Summary ---
:1990 Author Organization [facility] Address [address] [place] [address] Care Team Providers Name Role Phone Carmela Sanchez MD Primary Care Provider Encounter Details Date Type Department Care Team Description 02/15/2011 - Hospital Encounter [facility] Gabrielle Walden 02/18/2011 Mother/Baby Unit MD Constance [facility] [address] [phone] [facility], Level [address] [place] [address] (Wo rk) Social History Tobacco [...] Sign Reading Time Taken Comments Blood Pressure 117/61 02/18/2011 0859 EST Pulse 75 02/18/2011 0859 EST Temperature 37.6 ??C (99.7 ??F) 02/18/2011 0859 EST Respiratory Rate 12 02/18/2011 0859 EST Oxygen Saturation 99% 02/18/2011 0859 EST Inhaled Oxygen Concentration - - Weight - - Height - - Body Mass Index - - documented in this encounter Functional Status Cognitive Status Response Date of Assessment Because of a physical, mental, or emotional condition, do Ye s 02/16/2011 you have serious difficulty concentrating, remembering, or making decisions? (5 years old or older) documented as of this encounter Discharge Summaries Itzel Anel, CNM - 02/16/2011 0846 EST Department of [employer] MATERNAL DISCHARGE SUMMARY . . Maternal Name: Renetta Bradley : 1990 Attending: Admission: 02/14/2011 Discharge:_02/18/2011 Reason for Admission: 21 y/o 2 para 0010 at 41+1/7 weeks gestation. Snyder. PAST HISTORY: Disorders diagnosed prior to current Medical Asthma - Inhalers Only; Psychiatric: Depression, No treatment Comments: IBS/chronic constipation Gynecological Sexually Transmitted Diseases: Chlamydia Obstetrical Comments: First trimester CURRENT HISTORY (HPI): Disorders diagnosed during current Medical Psychiatric Disorder: Depression, No treatment Substance Abuse: None; Smoking: None; Sexually Transmitted Diseases: Chlamydia Obstetrical Comments: Asthma - inhalers GERD - Protonix IBS - no meds Medications during current : None Maternal Labs: O+; Antibody screen: Neg; Rubella titer: Immune; Syphilis Screening: Neg; Gonorrhea Screening: Neg; Chlamydia Screening: Pos; Hepatitis B screen: Neg; Hepatitis C screen: Not Done; HIV: Neg; 1hr Glucose: Normal LABOR INFORMATION Labor Onset: Induced; Method: AROM, Misoprostol, Oxytocin; Delivery Indication: Postdates; Normal Labor Curve GBS Status: Positive: culture at 35-37 weeks; GBS Prophylaxis: First dose > 4 hours prior to delivery Labor Analgesia: Epidural -Bolus, Epidural -Infusion; Labor & Delivery Medications: Post Oxytocin VTX; OA Continuous External FHRM; FHR Pattern: Normal Amniotic Fluid Color: Clear; Duration Rupture of Membranes: <12 DELIVERY INFORMATION Spontaneous Vaginal Delivery; Episiotomy: None; Lacerations: Labial, Second Degree Perineal; Repair Suture: 3-0 Vicryl; Delivery / Repair Anesthesia: Epidural - Infusion; EBL: < 500 Comments: nuchal arm. Placenta: Delivery Method: Spontaneous; Configuration: Normal Discharge Summary 2 Patient Stamp Box Department of [employer]PER[employer] MATERNAL DISCHARGE SUMMARY . . Labor and Delivery Complications and/or Procedures: None INFORMATION Weight: 4054 grams Sex: Male Delivery Date: 02/16/2011 Delivery Time: 0810 Apgars: 91 , 95 : PPD#2 Additional Comments: Infant in NICU - august with him Diet Regular Activity Decreased for 2 weeks Discharge Medications / Dosage OTC meds Has own inhaler Other Problems / Discharge Diagnoses Follow-Up Plan for each Problem Condition at Discharge: stable Discharge Disposition: []x Home [] Other: [place] Staff/[facility] Signature: _02/18/2011 1500 Jie Robbins [facility] Tisha Lynch 02/16/2011 @ 0845 documented in this encounter Discharge Instructions SusanneSchNatividad norton RN - 02/18/2011 Diet: Regular Activity: Rest and recover at home for 2 weeks, then gradually increase activity. Do not lift anything heavier than the baby for two weeks Nothing in vagina for six weeks. (No tampons, no douches, no intercourse) You may resume work in 6 weeks, unless instructed differently by your music journalist Skin/Wound Care: Resume normal skin care. Bathing: No restrictions Control: You have chosen to have an IUD placed in your uterus after your 6 week checkup. Pending Results: Not applicable Symptoms to Call Your Doctor About: Abdominal pain different from the cramping or afterpains following the Foul smelling vaginal discharge Pain or redness in your breasts, excessive nipple soreness or problems with breast feeding. Please notify your doctor or music journalist if you feel overwhelmingly sad, guilty, angry, or depressed, asthese might be symptoms of post- depression, which can be treated. Redness, swelling or drainage from wound Temperature greater than 100.5 degrees F (38.1 degrees C) Vaginal bleeding heavier than a period, soaking greater than 1 pad per hour or a return of heavy bleeding after it has slowed down Appointments: See your music journalist in 2 and 6 weeks. Please call for an appointment. Follow-up Services Contacted at Discharge: none Health Risk and Disease Information: Not applicable documented in this encounter Medications at Time of Discharge Medication Sig Dispensed Refills Start Date End Date acetaminophen (TYLENOL) Take 2 Tabs by mouth 30 Each 1 05/04/2011 325 mg tablet every 4 hours as needed for Pain. albuterol (PROVENTIL, Inhale 1 Puff as 1 Inhaler 2 02/10/20 11 05/13/2011 VENTOLIN) 90 directed every 4 hours mcg/Actuation inhaler as needed for Wheezing. calcium carbonate Take 1-2 Tabs by mouth 30 Each 1 201003/23/2011 (TUMS) 200 mg calcium every 2 hours as (500 mg) Chew needed. docusate sodium Take 100 mg by mouth 2 0 10/03/19 11 03/23/2011 (COLACE) 100 mg times daily as needed. capsuleIndications: Indications: constipation CONSTIPATION ibuprofen (MOTRIN) 400 Take 1 Tab by mouth 30 Each 1 02/0705/13/2011 mg tablet every 4 hours as needed for Pain. lansinoh HPA lanolin For sore nipples 1 Tube 1 1 03/23/2011 pantoprazole (PROTONIX) Take 1 Tab by mouth 90 Tab 3 09/25/2011 40 mg tablet daily. Vit-Iron Take 1 Tab by mouth 30 Tab 11 03/23/2011 Fumarate-FA ( daily. VITAMIN WITH MINERALS) 28-0.8 mg Tab terbinafine (LAMISIL) 1 Apply topically 2 0 03/23/2011 % cream times daily. triamcinolone (KENALOG) Apply topically at 1 Tube 0 11/0703/23/2011 0.1 % cream bedtime as needed. Apply in a thin layer to affected areas as needed X 14 days. vitamin E external oil Apply topically as 0 03/10/2011 needed. documented as of this encounter Ordered Prescriptions Prescription Sig Dispensed Refills Start Date End Date lansinoh HPA lanolin For sore nipples 1 Tube 1 1 03/23/2011 ibuprofen (MOTRIN) 400 mg Take 1 Tab by mouth 30 Each 1 1 04/20/2010 05/13/2011 tablet every 4 hours as needed for Pain. calcium carbonate (TUMS) Take 1-2 Tabs by 30 Each 1 02/1803/23/2011 200 mg calcium (500 mg) mouth every 2 hours Chew as needed. acetaminophen (TYLENOL) Take 2 Tabs by 30 Each 1 02/19/20 11 05/04/2011 325 mg tablet mouth every 4 hours as needed for Pain. documented in this encounter Discharge Disposition Disposition Code Departure Means Destination Home or Self Care documented in this encounter Progress Notes Jie Robbins CNM - 02/18/2011 8914 EST S: Exhausted - [place] had to go to ICU for antibiotics - but doing so well may come down to [facility] 5 tonight getting better Voiding qs - small BM this AM - bottom feels very swollen O: BP 117/61 Pulse 75 Temp(Src) 37.6 ??C (99.7 ??F) (Temporal) Resp 12 SpO2 99% LMP 05/22/2010 ? Unknown Breasts soft, nipples intact FF@ 1F below umbilicus Small rubra flow Perineum - stitches approximated Cesar's neg A: PPD#2 P: D/C this evening - if infant comes down to floor will board with him Plans Mirena for control F/U 2 and 6 weeks ie Robbins CNM - 02/17/2011 1251 EST S: just getting started OOB - no dizziness Voiding qs, No BM O: BP 102/61 Pulse 86 Temp(Src) 36.4 ??C (97.5 ??F) (Temporal) Resp 16 LMP 05/22/2010 ? Unknown Breasts soft FF@1F below umb Perineum approximated Small rubra flow Cesar's neg A: Normal PPD#1 S/P IOL for post dates with 2nd degree laceration P: Continue teaching Purvi Pro RN - 02/16/2011 1030 EST Pt is a G2P 1 with a vag delivery at 41weeks 1days of a via She was pos for GBS and did receive ABXs. . She does have a IV. She received med for pain at 0845 Her last void was at 1030. Her fundus is frim at -1 wiith scant lochia. Her pain is 1/10. Apgars are 9/9. The PCP is hung. The pt isfeeding and the baby has been skin to skin after the delivery. The baby is8 lbs 15oz., . The baby has received it's medications and next VS are due at now Mom will transfer via w/c Purvi Lauren RN - 02/16/2011 0721 EST Report received, pt pushing, plan del. Jie Lozada CNM - 02/16/2011 0610 EST S: Comfortable with epidural O: BP 101/51 Pulse 72 Temp(Src) 37.1 ??C (98.8 ??F) (Oral) Resp 16 LMP 05/22/2010 FHR 120s avg LTV, + accels to 160s, occasion variable decels Pitocin @ 16mu/min [place] ctx q 2-4 SVE Fully/ +1 PCN for GBS prophylaxsis continues A: Category 2 FHR Entering 2nd stage P: Labor down x 30-40 minutes then begin pushing Jie Lozada CNM - 02/16/2011 0301 EST S: Sleeping and comfortable with epidural O: BP 105/49 Pulse 70 Temp(Src) 36.8 ??C (98.2 ??F) (Oral) Resp 16 LMP 05/22/2010 FHR 130s avg LTV, accels to 160s, occasional variable decels to 90s with recovery to base line Pitocin @ 16 mu/min [place] - ctx q 2-4 SVE 5, 90, -1 vertx starting to mold Leaking clear fluid A: Category 2 FHR Active phase P: Continue to titrate pitocin Recheck 3 hours Hillary Espino - 02/15/2011 8099 EST Report taken, care assumed. Patient resting, on left side, support person present. Ctx.s palpate moderate, FHR reassuring, cat 1, no decels noted. IV patent, Epidural infusing, Pitocin infusing. Patient states pain 4/10. C/o of amin catheter pain worse than the contractions. Amin removed. Pt understands will need I&O cath. Call lucas within reach. Patient denies further complaints at this time. Hillary Adler RN 02/15/2011 23:59 0300: variable and prolonged decel noted. NEELIMA Waite notified. VE exam / - 1. Will continue to titrate pitocin as nghia. Currently @ 16mU/min pitocin. 0605: VE 10cm/+1 station per NEELIMA Waite. Pitocin currently @ 18mU/min. FHR cat 2, variable decels,moderate variability. Ctx palpate moderate, q 2-3 min. 0705: NEELIMA Waite @ bedside. pushing. FHR baseline 150's, domenic decels c/ ctx. Cat 2. Jie Lozada CNM - 02/15/2011 2303 EST S: Comfortable with epidural - was sleeping O: BP 111/61 Pulse 65 Temp(Src) 36.5 ??C (97.7 ??F) (Oral) Resp 16 LMP 05/22/2010 FHR 140s min - avg LTV Pitocin @ 10mu/min [place] - ctx q 2-3 SVE 4, 80, -1 2300 AROM for clear fluid A: Category 1 FHR Pitocin IOL for post dates - early active labor GBS+ on PCN prophylaxsis P: Continue to titrate pitocin Recheck in 2-4 hours Jie Lozada CNM - 02/15/20112042 EST S: Ctx are stronger - requesting epidural O: BP 132/91 Pulse 81 Temp 36.2 ??C (97.2 ??F) Resp 18 LMP 05/22/2010 FHR 140s avg LTV, + accels Pitocin @ 12 mu/min [place] ctx q 2 SVE 4, 80, -1 1500 PCN loading dose, 1900 PCN 2.5 m/units A: Category 1 FHR IOL for post dates P: Anesthesia to place when L&D census permits Continue with pitocin Nelli Betancourt RN - 02/15/20111914 EST Report from Purvi Hill RN. Pt in tub and breathing well through contractions. IV fluid and rate checksdone. IV site negative for infection or infiltration. Family at bedside. Fluids encouraged. No acutedistress noted. 5- pt oob to tub, attempting to rest. 1999- pt states that contractions are getting stronger. Pt requesting epidural. CNM notified and into room SVE done, /-1. No acute distress noted. 2014- pt back into tub, awaiting epidural placement 2057- pt out of tub and into bed 2105- pt sitting up on side of bed or epidural placement. 2120- epidural placement complete, pt to right tilt. 2139- pt comfortable with epidural, attempting to rest. Family at bedside. Jie Robbins CNM - 02/15/2011 1813 EST S: Walking in bliss - ctx picking up O: BP 116/73 Pulse 87 Temp 36.7 ??C (98.1 ??F) Resp 18 LMP 05/22/2010 FHR 140s avg LTV, + accels to 160 Pitocin @ 8mu/min [place] Ctx q 6 SVE 3, 50%, -1 A: 21 yo @ 41 weeks - IOL for post dates Category 1 FHR P: Continue to titrate pitocin ie Robbins CNM - 02/15/2011 1326 EST S: Was sent home yesterday R/T L&D census Back for induction O: BP 110/69 Pulse 82 Resp 20 LMP 05/22/2010 FHR 140s avg LTV, + accels to 150s [place] Occasion ctx SVE 2, 50 -2 Vertex felt BOW intact S/P - 2 doses misoprostil on 02/14 - and then pitocin for 5 hours O pos/ GBS+ Pitocin Bundle: Induction 41w0d EDC: 02/08/2011 Indication: post dates Prior Uterine Scar: no EFW: 3700 grams Assessment of Pelvic Adequacy: Presentation: vertex Ocampo Score: 6 Informed Consent: Yes Attending Concurs Dr. Walden aware of pt status A: 21 yo @ 41 weeks Category 1 FHR P: Admit - pitocin induction. Consider amin bulb Anesthesia consult documented in this encounter H&P Notes Jie Robbins CNM - 02/15/2011 1637 EST ANTEPARTUM SUMMARY . . Maternal Name: Renetta Bradley : 1990 21 y/o 2 para 0010 at 41 weeks gestation. Snyder PAYTON: 02/08/2011 PAYTON Basis: LMP Confirmed by Ultrasound PAST HISTORY: Disorders diagnosed prior to current Medical Asthma - Inhalers Only; Psychiatric: Depression, No treatment Comments: IBS/chronic constipation Gynecological Sexually Transmitted Diseases: Chlamydia Obstetrical Comments: First trimester CURRENT HISTORY (HPI pg. 1 of 2): Disorders diagnosed during current Medical Psychiatric Disorder: Depression, No treatment Substance Abuse: None; Smoking: None; Sexually Transmitted Diseases: Chlamydia Obstetrical Comments: Asthma - inhalers GERD - Protonix IBS - no meds Medications during current : None TESTING Maternal Labs: O+; Antibody screen: Neg; Rubella titer: Immune; Syphilis Screening: Neg; Gonorrhea Screening: Neg; Chlamydia Screening: Pos; Hepatitis B screen: Neg; Hepatitis C screen: Not Done; HIV: Neg; 1hr Glucose: Normal Serum Screening: Multiple Marker Screening Not Done; Cystic Fibrosis Carrier Screening: Not Done Surveillance: Ultrasound; NST . . Maternal Name:Renetta Bradley Maternal Age: 21 y/o 2; Parity: 0010; Gestational Age: 41 weeks gestation Snyder GBS Status: pos Candidate: no Chief Complaint: Here for post term induction and maternal discomfort; difficulty walking, sleeping, generalized discomfort. Allergies:____Sulfa Blood pressure 102/64, pulse 94, temperature 36.4 ??C (97.5 ??F), temperature source Oral, resp. rate 18, last menstrual period 05/22/2010. Constitutional/General gravid female in no apparent distress Neck/Thyroid n/a Lungs clear bilaterally Heart RRR Breast/Axillas n/a Abdomen gravid no contractions Extremities sl edema Neurological +2 patellar reflexes Refer to record for remainder of maternal history Uterus: FH:__xyphoid EFW: __8# Presentation: __vtx OP Cervix: Dilation: ___2___ Effacement: ____50___ Station: __-1 Position: ___posterior/soft____ SSE: Nitrazine: Ferning: Pooling: intact Pitocin Bundle: Induction 41 weeks EDC: 02/08/11 Indication: Post term , maternal discomfort Prior Uterine Scar: no EFW: 8# Assessment of Pelvic Adequacy:yes Presentation: vtx Ocampo Score: 6 Informed Consent:yes Attending Concurs: Dr. Walden aware FHR Tracins reactive to 160s no decels, adequate chcf variability. Assessment: _IUP 41 weeks Bishops score 6 Plan:Pitocin per protocol ABX for GBS when active Encourage maternal position craig to rotate baby, documented in this encounter Procedure Notes Tisha Lynch CNM - 02/16/2011 0845 EST Department of [employer] DELIVERY SUMMARY . . Maternal Name: Renetta Bradley : 1990 21 y/o 2 para 0010 at 41+1/7 weeks gestation. Snyder. LABOR INFORMATION Labor Onset: Induced; Method: AROM, Misoprostol, Oxytocin; Delivery Indication: Postdates; Normal Labor Curve GBS Status: Positive: culture at 35-37 weeks; GBS Prophylaxis: First dose > 4 hours prior to delivery Labor Analgesia: Epidural -Bolus, Epidural -Infusion Labor & Delivery Medications: Post Oxytocin VTX; OA Continuous External FHRM; FHR Pattern: Normal Amniotic Fluid Color: Clear; Duration Rupture of Membranes: <12 DELIVERY INFORMATION Spontaneous Vaginal Delivery Episiotomy: None; Lacerations: Labial, Second Degree Perineal; Repair Suture: 3- 0 Vicryl Delivery / Repair Anesthesia: Epidural - Infusion EBL: < 500 Comments: nuchal arm. Placenta: Delivery Method: Spontaneous; Configuration: Normal Labor and Delivery Complications: None INFORMATION Weight: 4054 grams Sex: Male Delivery Date: 02/16/2011 Delivery Time: 0810 Apgars: 91, 95 Peds NOT Present Admitting Nursery: Normal [place] Placental Cord Insertion: Normal; Umbilical Cord Vessels: Three DELIVERY PERSONNEL Delivery Provider: Jie Robbins Primary Nurse: Purvi Lauren CNM: Jie Robbins Additional Provider 1: Jose Brooke Service / Group: ALEJANDRO/FA Provider: Jie Robbins [place] Staff/[facility] Signature: Tisha Lynch 02/16/2011 @ 0845 documented in this encounter Consult Notes Jie Bunch RN - 02/25/2011 1358 EST 02/25/11 ph call: Renetta states that she is pumping every 3 hrs, baby is taking EBM by bottle about every 2 to 3 hrs, & he is having lots of wet diapers during the day & poops as well-she is not keeping exactnumbers, but it seems like a lot. Her nipples are still sore & she is using a nipple ointment 2 x per day to her nipples. Renetta had been napping at the time of my call, tho her husb said she was UP when he answered the phone, so, I apologised to Renetta for waking her, tho the baby is awake & she will need to pump soon. She states that it is a lot of work pumping & giving bottles but she feels it is necessary so she does not mind so far. Her nipples are not painful during pumping; She pumps 4 ozs & baby takes 3 ozs per feeding. Mom did not have any questions. She will call HERE prn. Baby has a Pedi appointment on . Jie Winchester RN - 02/22/2011 1553 EST Follow Up Note Reason for Consult: Registered Nurse requested for baby transferred from NICU Subjective: I wanted to combo feed, but now, I just want him to BF as much as possible & not use any bottles - til he is older, or when I am away from him. Date of : 02/16/2011 Time of Delivery: 809 Info: Baby male was the 4054 g (8 lb 15 oz) product of a 41 1/7 gestation born by spontaneous vaginal delivery. Apgars were 9/9. Living Children: 1 Complications: IOL for post dates, TTN - NICU admission Labor medications taken were: Antibiotics and Epidural GBS: Mother was positive. 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 Mother's Current Medications: routine pp meds, Protonix, albuterol prn Anatomy: no abnormalities noted and Mother Anatomy: no abnormalities noted, Mom is engorged today. Current Weight: Weight : 4127 g (9 lb 1.6 oz) Change from Weight: 2% Last 24 hr I+O: Unmeasurable Output: Patient Vitals for the past 24 hrs: Urine Occurrence Urine Description Stool Occurrence Stool Description 02/22/11 1430 1 Large 1 Large 02/22/11 1140 - - 1 Yellow/brown;Seedy 02/22/11 0915 - - 1 Yellow/brown;Seedy;Small 02/22/11 0646 1 Large 1 Small;Yellow/brown 02/22/11 0000 1 Medium - - 02/21/11 2325 1 Medium 1 Yellow/brown 02/21/11 2122 1 - - - 02/21/11 1853 1 Large 1 Yellow/brown;Medium 02/21/11 1708 1 Large 1 Yellow/brown;Small Breast Feeding: Patient Vitals for the past 24 hrs: Breast Feeding Occurence 02/22/11 1445 1 02/22/11 1120 1 02/22/11 0915 1 02/22/11 0515 1 02/22/11 0000 1 02/21/11 2338 1 02/21/11 1708 1 Baby continues on a 7 day course of ABX. Current Breast Feeding: Mom is BFing 8x in 24 hrs + 1 FF of 24 cc In the night time, & has had 8 vds, & 8 stools, inthe past 24 hrs. Assessment: Mom is less engorged today, still uses the nipples shield d/t flattish nipples/easier for mom to latch baby & she DOES like to do her own thing. Mild nipple soreness on the R side-I again enc Mom to dab/dry EBM to her sore nipple & then apply Lancinoh. Plan: BF w baby's earliest cues or 8 to 12 x in 24 hrs. (OK to BR feed every 2 hrs now that Mom is engorged) OK for mom to pump to comfort or hand express enough to soften her nipple areola area so baby can latch on. Mom does well w encouragement/support LC to follow while in hosp Handouts given: List of Community Resources, breast pads & colostrum cups to catch dripping Br milk. Time spent: 5 mins face to face Jie Bunch RN 02/22/2011 15:53 Jie Winchester RN - 02/21/2011 1640 EST Follow Up Note Reason for Consult: Registered Nurse requested for baby transferred from NICU Subjective: I wanted to combo feed, but now, I just want him to BF as much as possible & not use any bottles - til he is older, or when I am away from him. Date of : 02/16/2011 Time of Delivery: 809 Info: Baby male was the 4054 g (8 lb 15 oz) product of a 41 1/7 gestation born by spontaneous vaginal delivery. Apgars were 9/9. Living Children: 1 Complications: IOL for post dates, TTN - NICU admission Labor medications taken were: Antibiotics and Epidural GBS: Mother was positive. 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 Mother's Current Medications: routine pp meds, Protonix, albuterol prn Infant Anatomy: no abnormalities noted and Mother Anatomy: no abnormalities noted, Mom is engorged today. Current Weight: Weight : 4048 g (8 lb 14.8 oz) Change from Weight: 0% Last 24 hr I+O: Unmeasurable Output: Patient Vitals for the past 24 hrs: Urine Occurrence Urine Description Stool Occurrence Stool Description 02/21/11 1520 1 Medium 1 Seedy;Large 02/21/11 1200 - - 1 Yellow/brown;Small 02/21/11 0800 1 Large 1 Yellow/brown;Small 02/21/11 0500 1 Small 1 Yellow/brown;Seedy;Watery 02/20/11 2320 1 Large 0 None 02/20/112003 - - 1 Transitional green;Watery 02/20/111999 1 Large 0 None Breast Feeding: Patient Vitals for the past 24 hrs: Breast Feeding Occurence 02/21/11 1500 1 02/21/11 1240 1 02/21/11 1020 1 02/21/11 0800 1 02/21/11 0735 1 02/21/11 0400 1 02/20/11 2335 1 02/20/11 2100 1 02/20/11 2004 1 02/20/11 1715 1 BFs 8x plus 1 more attempt, EBM by bottle 2x=tot of 70cc, voided x 7, stooled x5, in the past 24 hrs. Weight gain of 34 gm since yest. (8-14.5 lbs today) Current Breast Feeding: Observed baby BFing today at 1520, baby was in a cross cradle sort of hold wElizabeth trying to hold a nipple shield on her engorged breast/nipple area. Baby could not latch deeply enough d/t Mom's engorgement-so, assisted Mom w reverse pressure softening for a few mins til her nipple area was softer, then applied the nipple shield & baby latched, starting almost immediately to gulp w ea suck/swallow, & BF for about 10 mins coming away from breast on his own w a milktrickle from his mouth. Gave mom ice packs for her breasts p BFing. Assessment: Mom is engorged, no nipple soreness, & her milk is dripping all the time, & baby is having adifficult time w latching today. Renetta wants to use the nipple shield, stating I love this nipple shield -making it easier for her to latch baby this afternoon. Renetta states that her nurse advised not to pump, tho she MAY need to pump/hand express to comfort for a few mins so that baby can la tch on to a softer nipple/areolar area. Plan: STS when BFing if Mom will BF w baby's earliest cues or 8 to 12 x in 24 hrs. (OK to BR feed every 2 hrs now that Mom is engorged) OK for mom to pump to comfort or hand express enough to soften her nipple areola area so baby can latch on. Mom does well w encouragement/support LC to follow while in hosp Handouts given: List of Community Resources, breast pads & colostrum cups to catch dripping Br milk. Time spent: 35 mins face to face Jie Bunch RN 02/21/2011 16:39 Jie Winchester RN - 02/20/2011 1612 EST Initial Consult Reason for Consult: Registered Nurse requested for baby transferred from NICU Subjective: I wanted to combo feed, but now, I just want him to BF as much as possible & not use any bottles - til he is older, or when I am away from him. Date of : 02/16/2011 Time of Delivery: 809 Info: Baby male was the 4054 g (8 lb 15 oz) product of a 41 1/7 gestation born by spontaneous vaginal delivery. Apgars were 9/9. Living Children: 1 Complications: IOL for post dates, TTN - NICU admission Labor medications taken were: Antibiotics and Epidural GBS: Mother was positive. 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 Mother's Current Medications: routine pp meds, Protonix, albuterol prn Infant Anatomy: no abnormalities noted and Mother Anatomy: no abnormalities noted, Mom is engorged today. Current Weight: Weight : 4014 g (8 lb 13.6 oz) Change from Weight: -1% Last 24 hr I+O: Unmeasurable Output: Patient Vitals for the past 24 hrs: Urine Occurrence Urine Description Stool Occurrence Stool Description 02/20/11 1425 1 Large - - 02/20/11 1300 1 - 1 - 02/20/11 1000 1 Medium - - 02/20/11 0815 1 - 1 Yellow/brown 02/20/11 0600 1 - 1 Yellow/brown 02/20/11 0025 1 Large 0 - 02/19/11 2143 - - 1 Yellow/brown 02/19/11 2117 1 Large 1 Yellow/brown;Medium Breast Feeding: Patient Vitals for the past 24 hrs: Breast Feeding Occurence 02/20/11 1450 1 02/20/11 0400 1 02/19/11 2000 1 02/19/11 1810 1 02/19/11 1705 1 BFs 4x plus 1 more attempt, EBM by bottle 3x=tot of 130cc, FFs x2 for tot=73cc, voided x8, stooled x6, in the past 24 hrs. Current Breast Feeding: Observed baby BFing today at 1450, baby was in a cross cradle sort of hold wElizabeth trying to watch TV & text at the same time. Enc Mom to watch for laong pauses & use Br compression, this helps baby to stay deeply latched & get more milk, longer BF=She tried it & baby started gulping at breast, so the entire BF was about 15 mins, & when baby came away on his own, her nipple was mildly compressed-he may have been migrating to the tip of her nipple during the last few mins of BFing tho Renetta reported no pinchy pain. Assessment: Mom is engorged, no nipple soreness, & she has been pumping to soften her nipple/areolar area, then bottle feeding her EBM- even tho she does state that she wants to BF more- Baby has coordinated sucking & needs to be tucked IN, and tummy to tummy w Mom when at breast. Plan: STS if Mom will BF w baby's earliest cues or 8 to 12 x in 24 hrs. Not more than 3 hrs between BFs. OK for mom to pump to comfort so baby can latch d/t Mom is now engorged today. Nurses assist Mom w latching baby on her L side=more challenging side for Mom to latch. Encourage Br compressions if baby takes long pauses while BFing. Point out when baby swallows to Mom. Mom does well w encouragement/support LC to follow while in hosp Handouts given: List of Community Resources Time spent: 25 mins face to face Jie Bunch RN 02/20/2011 16:11 documented in this encounter OR Notes Anesthesia Procedure Notes - Roentgenology Teacher, [place] - 02/23/2011 1352 EST documented in this encounter Miscellaneous Notes Anesthesia Pre-Eval - Sj Vaca MD - 02/23/2011 1613 EST Obstetric Anesthesia Consult Name: RENETTA BRADLEY : 1990 Date: 02/23/2011 Age: 21 y.o. GA: 40w6d Hospital Clinic Assistant: No att. providers found Obstetric History: Allergies Allergen Reactions ??? Sulfa (Sulfonamide Antibiotics) Anaphylaxis ??? Bee Pollens Anaphylaxis Anesthetic History: Airway Evaluation: Review of Systems: History reviewed. No pertinent past surgical history. No current facility-administered medications for this encounter. Current Outpatient Prescriptions Medication Sig Dispense Refill ??? acetaminophen (TYLENOL) 325 mg tablet Take 2 Tabs by mouth every 4 hours as needed for Pain. 30 Each 1 ??? calcium carbonate (TUMS) 200 mg calcium (500 mg) Chew Take 1-2 Tabs by mouth every 2 hours as needed. 30 Each 1 ??? ibuprofen (MOTRIN) 400 mg tablet Take 1 Tab by mouth every 4 hours as needed for Pain. 30 Each 1 ??? lansinoh HPA lanolin For sore nipples 1 Tube 1 ??? albuterol (PROVENTIL, VENTOLIN) 90 mcg/Actuation inhaler Inhale 1 Puff as directed every 4 hoursas needed for Wheezing. 1 Inhaler 2 ??? pantoprazole (PROTONIX) 40 mg tablet Take 1 Tab by mouth daily. 90 Tab 3 ??? terbinafine (LAMISIL) 1 % cream Apply topically 2 times daily. ??? vitamin E external oil Apply topically as needed. ??? triamcinolone (KENALOG) 0.1 % cream Apply topically at bedtime as needed. Apply in a thin layer to affected areas as needed X 14 days. 1 Tube 0 ??? docusate sodium (COLACE) 100 mg capsule Take 100 mg by mouth 2 times daily as needed. Indications: CONSTIPATION ??? Vit-Iron Fumarate-FA ( VITAMIN WITH MINERALS) 28-0.8 mg Tab Take 1 Tab by mouthdaily. 30 Tab 11 No outpatient prescriptions have been marked as taking for the 02/15/11 encounter (Hospital Encounter) with Gabrielle Walden MD. Vital Signs: BP 117/61 Pulse 75 Temp(Src) 37.6 ??C (99.7 ??F) (Temporal) Resp 12 SpO2 99% LMP 05/22/2010 ? Unknown Labs: Lab Results Component Value Date WBC 10.19 02/14/2011 WBC 8.98 02/23/2009 HGB 13.2 02/14/2011 HGB 14.8 02/23/2009 HCT 37.9 02/14/2011 HCT 42.3 02/23/2009 MCV 91 02/14/2011 MCV 92 02/23/2009 PLT 163 02/14/2011 PLT 220 02/23/2009 NA 138 11/21/2010 NA 141 02/23/2009 K 4.1 11/21/2010 K 4.6 02/23/2009 CL 106 11/21/2010 CL 105 02/23/2009 CO2 25 11/21/2010 CO2 27 02/23/2009 BUN 5* 11/21/2010 BUN 8* 02/23/2009 CREATININE 0.50* 11/21/2010 CREATININE 0.66* 02/23/2009 Blood/Cultures: Recent Results (from the past 1008 hour(s)) TYPE AND SCREEN Collection Time 02/14/11 0830 Component Value Range Status Comment ABO O Final Rh Factor Positive Final Antibody Screen Negative Final GROUP B STREPTOCOCCUS MOLECULAR DETECTION Collection Time 01/16/11 1508 Component Value Range Status Comment Group B Streptococcus Molecular Detection GROUP B BETA STREPTOCOCCAL DNA detected by PCR. Final ASA Classification: Plan: epidural, general, spinal mode(s) of anesthesia were discussed. Pt Is 21 Y/O at 40 weeks who has a history of asthma, anxiety, and GERD who would like an epidural when she is ready. Risks discussed included: Bleeding, Infection, Nerve Injury, Spinal headaches, low blood pressures with underperfusion, high spinals, hematomas, failure and replacement. All of Renetta Bradley's questions were answered to her satisfaction. Attestation statement: I discussed the patient with the resident/fellow at the time of the visit. I agree with the findings and the plan of care documented in the resident's/fellow's note. canned Note-Null - Roentgenology TeacherBalbina - 02/22/2011 1120 EST lan of Care - Natividad Lara RN - 02/18/2011 1832 EST Post- Shift Note Maternal: Admit Date: 02/15/2011 Hospital Day: LOS: 3 days Date of Delivery: Information for the patient's : Willa Bradley [[id number]] 02/16/2011 Time of Delivery: Information for the patient's : Willa Bradley [[id number]] 0810 Type of Delivery: normal spontaneous vaginal delivery Rhogam Administration: Not needed Gestation (weeks): Information for the patient's : Willa Bradley [[id number]] 41 04/15 Hepatitis B: Lab Results Component Value Date HEPBSAG Negative Reference Range: Negative 07/22/2010 Hepatitis C: Lab Results Component Value Date HEPCAB Negative Reference Range: Negative 01/22/2010 Rubella: Protected Anesthesia/Duramorph: Epidural Episiotomy/Laceration:2nd degree labial Vital signs: Stable No data found. Post- check: WNL IV / SL: None Amin/Void: Patient up and voiding Pain Medications: Given this shift - see MAR Feeding: breast Feeding assistance: Other: baby in NICU, coming down soon Special Social Circumstances: Please have CM see on Sunday Discharge Education:Education completed Certificate: Completed Comments: Mom to be discharged /p dinner. Baby came down from NICU at 1845. Natividad Lara RN 02/18/2011 18:32 Plan of Jie Davies LPN - 02/18/2011 0500 EST Problem: VAGINAL DELIVERY - RECOVERY AND POST Goal: Empties bladder Pt up and voiding without assist. lan of Jie Davies LPN - 02/18/2011 0458 EST Post- Shift Note Maternal: Admit Date: 02/15/2011 Hospital Day: LOS: 3 days Date of Delivery: Information for the patient's : Willa Bradley [[id number]] 02/16/2011 Time of Delivery: Information for the patient's : Willa Bradley [[id number]] 0810 Type of Delivery: normal spontaneous vaginal delivery Rhogam Administration: Not needed Gestation (weeks): Information for the patient's : Willa Bradley [[id number]] 41 04/15 Hepatitis B: Lab Results Component Value Date HEPBSAG Negative Reference Range: Negative 07/22/2010 Hepatitis C: Lab Results Component Value Date HEPCAB Negative Reference Range: Negative 01/22/2010 Rubella: Protected Anesthesia/Duramorph: Epidural Episiotomy/Laceration:2nd degree labial Vital signs: Stable Patient Vitals for the past 8 hrs: BP Pulse Resp Temp SpO2 02/18/11 0135 108/60 mmHg 84 18 36.4 ??C (97.5 ??F) 100 % Post- check: WNL IV / SL: None Amin/Void: Patient up and voiding Pain Medications: Given this shift - see MAR Feeding: breast Feeding assistance: Other: baby in NICU Special Social Circumstances: Discharge Education:Education incomplete Certificate: Not completed Comments: Mom pumping and going up to feed baby in NICU, stable pp pt. Jie Costello STEFANIA Hill 02/18/2011 4:58 lan of Care - Debo Fontana RN - 02/17/20113 EST Post- Shift Note Maternal: Admit Date: 02/15/2011 Hospital Day: LOS: 2 days Date of Delivery: Information for the patient's : Willa Bradley [[id number]] 02/16/2011 Time of Delivery: Information for the patient's : Willa Bradley [[id number]] 0810 Type of Delivery: normal spontaneous vaginal delivery Rhogam Administration: Not needed Gestation (weeks): Information for the patient's : Willa Bradley [[id number]] 41 04/15 Hepatitis B: Lab Results Component Value Date HEPBSAG Negative Reference Range: Negative 07/22/2010 Hepatitis C: Lab Results Component Value Date HEPCAB Negative Reference Range: Negative 01/22/2010 Rubella: Protected Anesthesia/Duramorph: Epidural Episiotomy/Laceration:2nd degree labial Vital signs: Stable Patient Vitals for the past 8 hrs: BP Pulse Resp Temp 02/17/11 1612 100/70 mmHg 80 20 37.3 ??C (99.1 ??F) Post- check: WNL IV / SL: None Amin/Void: Patient up and voiding Pain Medications: Given this shift - see MAR Feeding: breast Feeding assistance: Occasional support Needs reminders to line baby up nipple to nose and belly to belly. Baby latches well when properly positioned. Special Social Circumstances: Discharge Education:Education incomplete Certificate: Not completed Comments: Mom teary r/t to baby being transferred to nicu for antibiotics, mom plans to go up to breast feed and to start pumping some. Continue to encourage mom to go up to NICU and breast feed. Stable pp pt receiving t/m and [facility] for back pain at epidural site. Debo Fontana RN 02/17/2011 21:23 lan of Teresa Joyner RN - 02/17/2011 1547 EST Post- Shift Note Maternal: Admit Date: 02/15/2011 Hospital Day: LOS: 2 days Date of Delivery: Information for the patient's : Willa Bradley [[id number]] 02/16/2011 Time of Delivery: Information for the patient's : Willa Bradley [[id number]] 0810 Type of Delivery: normal spontaneous vaginal delivery Rhogam Administration: Not needed Gestation (weeks): Information for the patient's : Willa Bradley [[id number]] 41 04/15 Hepatitis B: Lab Results Component Value Date HEPBSAG Negative Reference Range: Negative 07/22/2010 Hepatitis C: Lab Results Component Value Date HEPCAB Negative Reference Range: Negative 01/22/2010 Rubella: Protected Anesthesia/Duramorph: Epidural Episiotomy/Laceration:2nd degree labial Vital signs: Stable Patient Vitals for the past 8 hrs: BP Pulse Resp Temp 02/17/11 0914 102/61 mmHg 86 16 - 02/17/11 0847 - - - 36.4 ??C (97.5 ??F) Post- check: WNL IV / SL: None Amin/Void: Patient up and voiding Pain Medications: Given this shift - see MAR Feeding: breast Feeding assistance: Occasional support Needs reminders to line baby up nipple to nose and belly to belly. Baby latches well when properly positioned. Special Social Circumstances: Discharge Education:Education incomplete Certificate: Not completed Comments: C/o epidural site discomfort And cramping. Good relief with meds and [facility]. Teresa Max RN 02/17/2011 15:47 lan of Teresa Joyner RN - 02/17/2011 1780 EST Problem: VAGINAL DELIVERY - RECOVERY AND POST Goal: Demonstrates Appropriate Breast Feeding Techniques Outcome: Ongoing Needs reinforcement to place baby belly to belly and nipple to nose. nesthesia Post-Eval - Duane Cuellar MD - 02/17/2011 1356 EST Post Anesthesia Evaluation Date of Service: 02/17/2011 The patient has been evaluated and assessed. If present, post anesthetic events are documented below. The last set of recorded vital signs and pain rating were reviewed: ,Numeric Pain Level (Scale 1-10): 2 Pt is doing well S/P epidural and vaginal delivery. Pt has not had any headaches or significant backpain. She is ambulating well and has no lower motor weakness or loss of sensation. Duane Cuellar MD 02/17/2011 13:56 lan of Care - Gabrielle Latif RN - 02/17/2011 0520 EST Post- Shift Note Maternal: Admit Date: 02/15/2011 Hospital Day: LOS: 2 days Date of Delivery: Information for the patient's : Willa Bradley [[id number]] 02/16/2011 Time of Delivery: Information for the patient's : Willa Bradley [[id number]] 0810 Type of Delivery: normal spontaneous vaginal delivery Rhogam Administration: Not needed Gestation (weeks): Information for the patient's : Willa Bradley [[id number]] 41 04/15 Hepatitis B: Lab Results Component Value Date HEPBSAG Negative Reference Range: Negative 07/22/2010 Hepatitis C: Lab Results Component Value Date HEPCAB Negative Reference Range: Negative 01/22/2010 Rubella: Protected Anesthesia/Duramorph: Epidural Episiotomy/Laceration:2nd degree labial Vital signs: Stable Patient Vitals for the past 8 hrs: BP Pulse Resp Temp 02/17/11 0000 105/58 mmHg 73 18 37.3 ??C (99.1 ??F) Post- check: WNL IV / SL: None Amin/Void: Patient up and voiding Pain Medications: Patient desires medications be offered every four hours Feeding: breast Feeding assistance: Occasional support baby not opening well tonight and pt needs help to get a widegape and nipples sandwich due to flat nipples. Special Social Circumstances: Discharge Education:Education incomplete Certificate: Not completed Comments: AVSS. PP check wnl. U&V QS. Breast feeding well this shift with assist to latch. Bonding well with baby. Gabrielle Latif RN 02/17/2011 5:20 lan of [place] - Gabrielle Latif RN - 02/17/2011 0520 EST Problem: VAGINAL DELIVERY - RECOVERY AND POST Goal: Ambulates Independently Outcome: Met This Shift Pt is ambulating independently with no difficulities lan of Care - Carolyn Lane RN - 02/16/20116 EST Problem: PAIN Goal: Patient???s pain/discomfort is manageable/tolerable Intervention: Assess characteristics of pain Assess on admission, prn and at discharge. Pain meds prn with good relief. lan of Carolyn Orellana RN - 02/16/20114 EST Post- Shift Note Maternal: Admit Date: 02/15/2011 Hospital Day: LOS: 1 day Date of Delivery: Information for the patient's : Willa Bradley [[id number]] 02/16/2011 Time of Delivery: Information for the patient's : Willa Bradley [[id number]] 0810 Type of Delivery: normal spontaneous vaginal delivery Rhogam Administration: Not needed Gestation (weeks): Information for the patient's : Willa Bradley [[id number]] 41 04/15 Hepatitis B: Lab Results Component Value Date HEPBSAG Negative Reference Range: Negative 07/22/2010 Hepatitis C: Lab Results Component Value Date HEPCAB Negative Reference Range: Negative 01/22/2010 Rubella: Protected Anesthesia/Duramorph: Epidural Episiotomy/Laceration:2nd degree labial Vital signs: Stable Patient Vitals for the past 8 hrs: BP Pulse Resp Temp 02/16/11 1600 102/62 mmHg 74 16 36.3 ??C (97.3 ??F) Post- check: WNL IV / SL: None Amin/Void: Patient up and voiding Pain Medications: Given this shift - see MAR Feeding: breast Feeding assistance: Occasional support Special Social Circumstances: Discharge Education:Education incomplete Certificate: Not completed Comments: AVSS. PP check wnl. U&V QS. Breast feeding well this shift. Needed a little help to latch. Lots of visitors in. Bonding well with baby. Carolyn Lane RN 02/16/2011 21:54 lan of Care - Latonia Rivera - 02/16/2011 1256 EST Post- Shift Note Maternal: Admit Date: 02/15/2011 Hospital Day: LOS: 1 day Date of Delivery: Information for the patient's : Willa Bradley [[id number]] 02/16/2011 Time of Delivery: Information for the patient's : Willa Bradley [[id number]] 0810 Type of Delivery: normal spontaneous vaginal delivery Rhogam Administration: Not needed Gestation (weeks): Information for the patient's : Willa Bradley [[id number]] 41 04/15 Hepatitis B: Lab Results Component Value Date HEPBSAG Negative Reference Range: Negative 07/22/2010 Hepatitis C: Lab Results Component Value Date HEPCAB Negative Reference Range: Negative 01/22/2010 Rubella: Protected Anesthesia/Duramorph: Epidural Episiotomy/Laceration:2nd degree labial Vital signs: Stable Patient Vitals for the past 8 hrs: BP Pulse Resp Temp 02/16/11 1130 111/67 mmHg 66 18 36.8 ??C (98.2 ??F) 02/16/11 1027 110/75 mmHg 78 18 - 02/16/11 0956 110/64 mmHg 78 18 - 02/16/11 0949 - - - 37.6 ??C (99.7 ??F) 02/16/11 0927 117/60 mmHg 76 18 - 02/16/11 0900 112/73 mmHg 100 18 - 02/16/11 0843 115/68 mmHg 95 18 - 02/16/11 0829 118/73 mmHg 100 20 - 02/16/11 0815 128/77 mmHg 94 - 02/16/11 0715 125/70 mmHg 77 20 - 02/16/11 0630 - - - 36.7 ??C (98.1 ??F) 02/16/11 0600 128/77 mmHg 72 18 - Post- check: WNL IV / SL: Saline lock removed - catheter intact Amin/Void: Patient up and voiding Pain Medications: Given this shift - see MAR Feeding: breast Feeding assistance: Full assist Special Social Circumstances: Discharge Education:Education incomplete Certificate: Not completed Comments: Stable PP patient, NS lock d/c'd. Data: Action: Response: Latonia Rivera RN 02/16/2011 12:56 lan of Care - Hillary Adler - 02/16/2011 0013 EST Problem: PAIN Goal: Patient???s pain/discomfort is manageable/tolerable Outcome: Ongoing D: PCEA in place. Current pain level is 4/10. A: discussed goals of epidural anesthesia to allow for rest and comfort during labor. Emphasized using the PCEA button to maintain pain control. R: pt's pain well controlled, currently able to sleep. lan of Care - Nelli Balderas RN - 02/15/2011 194 EST Problem: UTERUS/PLACENTA PERFUSION Goal: FHR Pattern D: FHR is a category 1 tracing. The pt is a low risk pt, here for induction Requiring continous monitoring, She is positive for GBS A: continue monitoring. If decelerations develop, provide IV fluids, discontinue Pitocin, position changes, oxygen via non-rebreather. Notify OB resident & charge nurse. R: Maintain a reassuring FHR tracing. canned Note-Null - Roentgenology Teacher, Scan - 02/15/2011 1516 EST canned Note- Null - Roentgenology Teacher, Scan - 02/15/2011 1516 EST lan of Care - Purvi Lauren RN - 02/15/2011 1448 EST Problem: UTERUS/PLACENTA PERFUSION Goal: FHR Pattern D: FHR is a category 1 tracing. The pt is a low risk pt, here for iol Requiring continus monitoring,She is pos for GBS A: continous monitoring. If decelerations develop, provide IV fluids, discontinue Pitocin, position changes, oxygen via non-rebreather. Notify OB resident & charge nurse. R: Maintain a reassuring FHR tracing. documented in this encounter Plan of Treatment Not on filedocumented as of this encounter Procedures Procedure Name Priority Date/Time Associated Diagnosis Comme nts BLOOD GASES, CORD STAT 02/16/2011 8:17 EST Res ults for this VENOUS procedure are i n the results section. BLOOD GASES, CORD STAT 02/16/2011 8:17 EST Res ults for this ARTERIAL procedure are i n the results section. documented in this encounter Results (ABNORMAL) BLOOD GASES, CORD VENOUS (02/16/2011 8:17 EST) Pathologist Sig nature pH, Cord blood leanne 7.38 7.25 - 7.45 [facility] PCO2, Cord blood 38 mmHg [facility] PO2, Cord bld leanne 29 17 - 41 mmHg [facility] tCO2, Cord blood 23 (H) 14 - 22 mEq/L [facility] Base Deficit 2.6 [facility] Specimen Performing Organization Address City/State/ZIP Code Phon e Number [facility] [address] [place] [address] SERVICES [facility] [address] [place] [address] (ABNORMAL) BLOOD GASES, CORD ARTERIAL (02/16/2011 8:17 EST) pH, Cord blood art 7.25Comment: 7.18 - 7.38 [facility] Arterial specimen LAB PCO2, Cord blood 62Comment: mmHg [facility] PO2, Cord bld art 15Comment: 6 - 30 mmHg [facility] tCO2, Cord blood 28 (H)Comment: 14 - 22 mEq/L [facility] Arterial specimen [facility] Base Excess Arterial specimen [facility] Base Deficit 2.4Comment: [facility] Arterial [facility] LAB Specimen Blood specimen (specimen) Performing Organization Address City/State/ZIP Code Phon e Number [facility] [address] [place] [address] SERVICES [facility] [address] [place] [address] documented in this encounter Visit Diagnoses Not on filedocumented in this encounter Administered Medications Inactive Administered Medications - up to 3 most recent administrations Medication Order MAR Action Action Date Dose Rate Site acetaminophen (TYLENOL) tablet Given 02/18/2011 12:30 EST 650 mg 325-650 mg 325-650 mg, oral, EVERY 4 HOURS PRN, Starting on Kelly 02/16/11 at 1131, Until 02/18/11 at 2215, Pain, Routine Given 02/18/2011 5:50 EST 650 mg Given 02/18/2011 1:51 EST 650 mg acetaminophen (TYLENOL) tablet 650 mg Given 02/16/2011 8:43 EST 650 mg 650 mg, oral, PRN, Starting on 02/15/11 at 1321, Until Kelly 02/16/11 at 1131, Pain, , Routine bupivacaine-fentanyl in NS 0.0625 %-2 mc g/mL 250 mL epidural 1 dose, Starting on 02/15/11 at 2017, Until Kelly 01/17 at 1131, Created by cabinet override bupivacaine-fentanyl in NS 0.0625 %-2 Rate Documented 02/15/2011 23 :30 EST mL/hr mcg/mL 250 mL epidural epidural, CONTINUOUS, Starting on 02/15/11 at 2245, Until Kelly 02/16/11 at 1052, PCEA Dose: 8mL LOCKOUT Interval: 10minutes ONE HOUR Dose Limit: 36mL BASAL Rate: 10 mL/hr, Routine, Recovery (only) Rate Documented 02/15/2011 21:15 EST mL/hr docusate sodium (COLACE) capsule 100 mg Given 02/18/2011 12:30 EST 100 mg 100 mg, oral, 2 TIMES DAILY PRN, Starting on Kelly 02/16/11 at 1131, Until 02/18/11 at 2215, Constipation, Routine Given 02/17/2011 18:25 EST 100 mg ibuprofen (MOTRIN) tablet 400 mg Given 02/16/2011 8:43 EST 400 mg 400 mg, oral, PRN, Starting on 02/15/11 at 1321, Until Kelly 02/16/11 at 1131, Pain, , Routine ibuprofen (MOTRIN) tablet 400 mg Given 02/18/2011 12:30 EST 400 mg 400 mg, oral, EVERY 4 HOURS PRN, Starting on Kelly 02/16/11 at 1131, Until 02/18/11 at 2215, Pain, Routine Given 02/18/2011 5:50 EST 400 mg Given 02/18/2011 1:51 EST 400 mg lactated ringers (LR) infusion New Bag 02/16/2011 7:55 EST 150 mL/hr 150 mL/hr at 150-200 mL/hr, 150-200 mL/hr, intravenous, CONTINUOUS, Starting on 02/15/11 at 1345, Until Kelly 02/16/11 at 1131, Routine New Bag 02/16/2011 1:30 EST 150 mL/hr 150 mL/hr Rate Documented 02/15/2011 23:45 EST 150 mL/hr 150 mL/hr lansinoh HPA lanolin Given 02/17/2011 11:08 EST topical (top), PRN, Starting on Kelly 02/16/11 at 1131, Until 02/18/11 at 2215, Other multivitamin vit-iron fumarate-FA Given 02/18/2011 13:5 2 EST 1 Tablet (STUARTNATAL) 27-1 mg tablet 1 Tab 1 Tablet, oral, DAILY, First dose on Kelly 02/16/11 at 1200, Until Discontinued, Routine Given 02/17/2011 8:31 EST 1 Tablet Given 02/16/2011 13:12 EST 1 Tablet oxytocin in lactated ringers 30 Rate Change 02/16/2011 8:15 EST 20 0 mL/hr 200 mL/hr units/500 ml 200 mL/hr, intravenous, CONTINUOUS, Starting on Sun02/15/11 at 1345, Until Sun02/15/11 at 1444, Routine oxytocin in lactated ringers 30 New Bag 02/16/2011 8:16 EST 135 mL /hr 135 mL/hr units/500 ml 135 mL/hr, intravenous, CONTINUOUS, Starting on 02/15/11 at 1445, Until Kelly 02/16/11 at 0915, Routine oxytocin in lactated Rate Change 02/16/2011 4:45 EST 18 jaymie-unit s/min 18 mL/hr ringers 30 units/500 ml 1-30 jaymie-units/min (rounded to 1-30 mL/hr), intravenous, CONTINUOUS, Starting on 02/15/11 at 1345, Until Kelly 02/16/11 at 1131, Routine Rate Change 02/16/2011 4:15 EST 17 jaymie-units/min 17 mL/hr Rate Change 02/16/2011 2:29 EST 16 jaymie-units/min 16 mL/hr oxytocin in lactated ringers 30 Rate Change 02/16/2011 8:16 EST 20 0 mL/hr 200 mL/hr units/500 ml 200 mL/hr, intravenous, CONTINUOUS, Starting on Sun02/16/11 at 0900, Until Kelly 02/16/11 at 0959, Routine oxytocin in lactated ringers 30 Rate Change 02/16/2011 9:17 EST 13 5 mL/hr 135 mL/hr units/500 ml 135 mL/hr, intravenous, CONTINUOUS, Starting on Kelly 02/16/11 at 0945, Until Kelly 02/16/11 at 1044, Routine pantoprazole (PROTONIX) tablet 40 mg Given 02/18/2011 13:52 EST 40 mg 40 mg, oral, DAILY, First dose on Kelly 02/16/11 at 0915, Until Discontinued, Routine Given 02/17/2011 8:31 EST 40 mg penicillin G potassium 2.5 Million Given 02/16/2011 6:50 EST 2.5 Million Units Units in dextrose (D5W) 100 mL IVPB 2.5 Million Units, intravenous, Administer over 30 Minutes, EVERY 4 HOURS, 4 doses, First dose on Sun02/15/11 at 1730, Last dose on Sun02/16/11 at 0700, Routine Given 02/16/2011 3:15 EST 2.5 Million Units Given 02/15/2011 23:10 EST 2.5 Million Units penicillin G potassium 5 Million Units Given 1 15:04 EST 5 Million Units in dextrose (D5W) 150 mL IVPB 5 Million Units, intravenous, Administer over 30 Minutes, NOW X1, 1 dose, On Sun02/15/11 at 1345, STAT documented in this encounter Discontinued Medications Medication Sig Discontinue Reason Start Date End Date aluminum & magnesium Take 15 mL by 2010 hydroxide-simethicone mouth every 6 (MYLANTA-DS) 400-400-40 hours as needed. mg/5 mL suspension acetaminophen (TYLENOL) Take 2 Tabs by 06/25/2010 500 mg tabletIndications: mouth every 6 Muscle strain of chest hours as needed wall for Pain. documented as of this encounter Active and Recently Administered Medications Times are shown in EST. Scheduled Medication Order 02/16/2011 02/17/2011 02/18/2011 multivitamin vit-iron fumarate- FA (STUARTNATAL) 27-1 mg tablet 1 Tab (CANCELED) 1312 (Given - Provider: Latonia Rivera) 0831 (Given - Provider: Teresa Max RN) 1352 (Given - Provider: Natividad fallon, KELSI) 1 Tab, Oral, DAILY, First dose on Sun02/16/11 at 1200, Until Di scontinued pantoprazole (PROTONIX) tablet 40 mg (CANCELED) 1313 ( Not Given - Provider: Latonia Rivera - Reason: Medication not available) 0831 (Given - Provider: Teresa Max RN) 1352 (Given - Provider: Natividad fallon, KELSI) 40 mg, Oral, DAILY, First dose on Sun02/16/11 at 0915, Until Di scontinued penicillin G potassium 2.5 Million Units in dextrose (D5W) 100 mL IVPB (COMPLETED) 0315 (Given - Provider: Hillary Adler)06 50 (Given - Provider: Hillary Adler) 2.5 Million Units, Intravenous, for 30 M inutes, EVERY 4 HOURS, 4 doses, First dose on Sun02/15/11 at 1730, Last dose on Kelly 02/16/11 at 0700 Continuous Medication Order 02/16/2011 02/17/2011 02/18/2011 lactated ringers (LR) infusion (CANCELED) 0130 (New Ba g - Provider: Hillary Adler)0755 (New Bag - Provider: Purvi Lauren, KELSI)0820 (Hold - Provider: Purvi Lauren RN - Reason: Change in condition) at 150-200 mL/hr, Intravenous, CONTINUOU S, Starting Sun02/15/11 at 1345, Until Kelly 02/16/11 at 1131 oxytocin in lactated ringers 30 units/500 ml () 0815 (Rate Change - Provider: Purvi Lauren RN) 200 mL/hr, Intravenous, CONTINUOUS, Star ting Sun02/15/11 at 1345, Until Sun02/15/11 at 1444 oxytocin in lactated ringers 30 units/500 ml () 0816 (New Bag - Provider: Purvi Lauren RN) 135 mL/hr, Intravenous, CONTINUOUS, Star ting Sun02/15/11 at 1445, Until Sun02/15/11 at 1544 oxytocin in lactated ringers 30 units/500 ml (CANCELED ) 0020 (Rate Change - Provider: Hillary Adler)0150 (Rate Change - Provider: Hillary Adler)0229 (Rate Change - Provider: Hillary Adler)0415 (Rate Change - Provider: Hillary Adler)0445 (Rate Change - Provider: Hillary Adler) 1-30 jaymie-units/min = 1-30 mL/hr, Intra venous, CONTINUOUS, Starting Sun02/15/11 at 1345, Until Kelly 02/16/11 at 1131 oxytocin in lactated ringers 30 units/500 ml () 0816 (Rate Change - Provider: Puriv Lauren RN) 200 mL/hr, Intravenous, CONTINUOUS, Star ting Kelly 02/16/11 at 0900, Until Kelly 02/16/11 at 0959 oxytocin in lactated ringers 30 units/500 ml () 0917 (Rate Change - Provider: Purvi Lauren, RN)1313 (Not Given - Provider: Latonia Rivera - Reason: Other - Comment: given in L/D) 135 mL/hr, Intravenous, CONTINUOUS, Star ting Kelly 02/16/11 at 0945, Until Kelly 02/16/11 at 1044 PRN Medication Order 02/16/2011 02/17/2011 02/18/2011 acetaminophen (TYLENOL) tablet 325-650 mg 1312 (Given - Provider: Latonia Rivera)1752 (Given - Provider: Carolyn Lane RN) 0019 (Given - Provider: Gabrielle Latif, KELSI)0427 (Given - Provider: Gabrielle Latif, KELSI)0831 (Given - Provider: Teresa Max RN)1359 (Given - Provider: Teresa Max RN)1825 (Given - Provider: Debo Fontana RN) 0151 (Given - Provider: Jie Hill LPN)0550 (Given - Provider: Jie Hill LPN)1230 (Given - Provider: Natividad Lara RN) 325-650 mg, Oral, EVERY 4 HOURS PRN, Sta rting Kelly 02/16/11 at 1131, Until 02/18/11 at 2215, Pain 2210 (Given - Provider: Debo Fontana RN) acetaminophen (TYLENOL) tablet 650 mg (CANCELED) 0843 (Given - Provider: Purvi Lauren, KELSI) 650 mg, Oral, PRN, Starting 02/15/11 at 1321, Until Kelly 02/16/11 at 1131, Pain, calcium carbonate (TUMS) 200 mg calcium (500 mg) per chewable tablet Chew 1-2 Tab 1-2 Tab, Oral, EVERY 2 HOURS PRN, Starti ng Kelly 02/16/11 at 1131, Until 02/18/11 at 2215, Heartburn, Indigestion docusate sodium (COLACE) capsule 100 mg (CANCELED) 1825 (Given - Provider: Debo Fontana RN) 1230 (Given - Provider: Natividad fallon RN) 100 mg, Oral, 2 TIMES DAILY PRN, Startin g Kelly 02/16/11 at 1131, Until 02/18/11 at 2215, Constipation ibuprofen (MOTRIN) tablet 400 mg (CANCELED) 0843 (Give n - Provider: Purvi Lauren, KELSI) 400 mg, Oral, PRN, Starting 02/15/11 at 1321, Until Kelly 02/16/11 at 1131, Pain, ibuprofen (MOTRIN) tablet 400 mg 1312 (Given - Provide r: Latonia Rivera)1753 (Given - Provider: Carolyn Lane RN) 0019 (Given - Provider: Gabrielle Latif RN)0427 (Given - Provider: Gabrielle Latif RN)0831 (Given - Provider: Teresa Max RN)1359 (Given - Provider: Teresa Max RN)1825 (Given - Provider: Debo Fontana RN) 0151 (Given - Provider: Trang Gurrola)0550 (Given - Provider: Jie Hill LPN)1230 (Given - Provider: Natividad Lara RN) 400 mg, Oral, EVERY 4 HOURS PRN, Startin g Kelly 02/16/11 at 1131, Until 02/18/11 at 2215, Pain 2210 (Given - Provider: Debo Fontana RN) lansinoh HPA lanolin 1108 (Given - Provider: Lulu Max RN) Topical, PRN, Starting Kelly 02/16/11 at 1131, Until Sat 02/18 at 2215, Other documented in this encounter Orders Medications Ordered That Might Not Have Count Last Ord ered Date First Ordered Date Been Administered albuterol (PROVENTIL HFA, VENTOLIN HFA) 2 02/17/20 11 inhaler 2 Puff calcium carbonate (TUMS) 200 mg calcium 1 02/17/20 11 (500 mg) per chewable tablet Chew 1-2 Tab oxycodone (ROXICODONE) immediate release 1 011 tablet 5-10 mg pantoprazole (PROTONIX) tablet 40 mg 1 02/16/2011 carboprost (HEMABATE) intramuscular 1 02/15/2011 injection 250 mcg lactated ringers (LR) 500 mL BOLUS 1 02/15/2011 methylergonovine (METHERGINE) injection 1 02/16/20 11 200 mcg misoprostol (CYTOTEC) tablet 200 mcg 1 02/15/2011 misoprostol (CYTOTEC) tablet 800 mcg 1 02/15/2011 Nursing Count Last Ordered Date First Ordered Date NOTIFY SOCIAL WORK 1 02/16/2011 Admission Count Last Ordered Date First Ordered Date ADMIT TO INPATIENT 2 02/16/2011 02/15/2011 PPS NOTIFICATION OF PATIENT ARRIVAL ON 1 1 UNIT Discharge Count Last Ordered Date First Ordered Date DISCHARGE PATIENT 1 02/18/2011 documented in this encounter Care Teams Cook 3 Pastry Relationship Specialty Start Date End Date Carmela Sanchez MD PCP - General 07/30/08 08/13/[address] [place] [phone] documented as of this encounter
--- OUTSIDE RECORDS SUMMARY | 2021-10-28 15:11 | XMS_ITS | Encounter Summary ---
:1990 Author Organization [facility] Address [address] [place] [id number] Care Team Providers Name Role Phone Carmela Sanchez MD Primary Care Provider Reason for Visit Reason Onset Date Comments Medication Management 05/11/2011 Encounter Details Date Type Department Care Team Description 05/11/2011 Telephone [facility] Carmela Sanchez, [facility] cation Management Family Medicine - [address] [id number] [phone] (Wo rk) Social History Tobacco Use Types [...] this encounter Miscellaneous Notes Telephone Encounter - Brittnee Jarrell - 05/16/2011 1133 EST Pt has appointment scheduled for today. elephone Encounter - Kita Dewey - 05/11/2011 1600 EST SHE IS VERY SHAKY AND WAS WONDER IF THE DILANTON IS TO HIGH? HAS SOME QUESTIONS. documented in this encounter Plan of Treatment Not on filedocumented as of this encounter Visit Diagnoses Not on filedocumented in this encounter Care Teams Cranberry Bog Supervisor Relationship Specialty Start Date End Date Carmela Sanchez MD PCP - General 07/30/08 08/13/[address] [place] [address] [phone] documented as of this encounter
--- OUTSIDE RECORDS SUMMARY | 2021-10-28 15:11 | XMS_ITS | Encounter Summary ---
:1990 Author Organization [facility] Address [address] [place] [address] Care Team Providers Name Role Phone Carmela Sanchez MD Primary Care Provider Reason for Visit Reason Comments Scheduled Induction post-term social induction Encounter Details Date Type Department Care Team Description 02/14/2011 Hospital Encounter [facility] Meera Angeles MD 111 [facility] [address] [place] [address] Supervision of Birthing Center Gabrielle Walden MD [address] [phone] normal first Unit (Primary 111 [facility]) [place] [address] Social History Tobacco Use Types [...] Sign Reading Time Taken Comments Blood Pressure 86/48 02/14/2011 1745 EST Pulse 79 02/14/2011 1745 EST Temperature 35.5 ??C (95.9 ??F) 02/14/2011 1655 EST Respiratory Rate 18 02/14/2011 1745 EST Oxygen Saturation - - Inhaled Oxygen Concentration - - Weight 91.6 kg (202 lb) 02/14/2011 0749 EST Height 165.1 cm (5' 5) 02/14/2011 0749 EST Body Mass Index 33.61 02/14/2011 0749 EST documented in this encounter Discharge Summaries Chrissy Ventura CNM - 02/14/2011 1844 EST ANTEPARTUM SUMMARY . . Maternal Name: Renetta Bradley : 1990 21 y/o 2 para 0010 at 40+6/7 weeks gestation. Snyder PAYTON: 02/08/2011 PAYTON Basis: [...] 21 y/o 2; Parity: 0010; Gestational Age: 40+6/7 weeks gestation Snyder GBS Status: pos Candidate: [...] EFW: __8# Presentation: __vtx OP Cervix: Dilation: ___1____ Effacement: ____80%___ Station: __-1____ Position: ___posterior/soft____ SSE: Nitrazine: Ferning: Pooling: intact Pitocin Bundle: Induction 40w6d EDC: 02/08/11 Indication: Post term , maternal discomfort Prior Uterine Scar: no EFW: 8# Assessment of Pelvic Adequacy:yes Presentation: vtx A/ Induction of labor for maternal discomfort and post term - little cervical change and reassuring status. P/ Return in AM for restart of Induction. Discharge instructions given. Ambien home pack given with instructions. Has support from mother and [id number] and FOB documented in this encounter Discharge Instructions InstructionsChChrissy recio CNM - 02/14/2011 Discharge Instructions L&D Call your provider at [phone] if: ?? Your water breaks ?? There's any bright red bleeding ?? Your are not feeling the baby move ?? Severe headaches and/or blurry vision ?? Contractions are closer together and/or stronger, or you are having constant pain ?? In morning if no call from Labor and Delivery by 8:30 am Medications: ?? Continue any present medication ?? Ambien for sleep. Take 1 tab before bed and may repeat in 30-60 min if no sleep. Activity: ?? Drink plenty of fluids and eat well ?? As tolerated, lie on your left side while resting/napping ?? Labor and Delivery will call you in AM with time to return to unit for Induction. Chrissy Ventura CNM 02/14/2011 18:48 documented in this encounter Medications at Time of Discharge Medication Sig Dispensed Refills Start Date End Date acetaminophen (TYLENOL) Take 2 Tabs by mouth 30 Each 1 05/04/2011 325 mg tablet every 4 hours as needed for Pain. acetaminophen (TYLENOL) Take 2 Tabs by mouth 100 Tab 2 02/18/2011 500 mg every 6 hours as tabletIndications: needed for Pain. Muscle strain of chest wall albuterol (PROVENTIL, Inhale 1 Puff as 1 Inhaler 2 02/10/20 11 05/13/2011 VENTOLIN) 90 directed every 4 hours mcg/Actuation inhaler as needed for Wheezing. aluminum & magnesium Take 15 mL by mouth 0 02/18/2011 hydroxide-simethicone every 6 hours as (MYLANTA-DS) 400-400-40 needed. mg/5 mL suspension calcium carbonate Take 1-2 Tabs by mouth [...] 1 Tab by mouth 30 Tab 11 1 03/23/2011 Fumarate-FA ( daily. VITAMIN WITH MINERALS) [...] 03/10/2011 needed. documented as of this encounter Discharge Disposition Disposition Code Departure Means Destination Home or Self Care documented in this encounter Progress Notes Chrissy Ventura CNM - 02/14/2011 8879 EST S/ Pt feels more discomfort in bed. Feels better when she is upright. O/Blood pressure 97/57, pulse 73, temperature 35.5 ??C (95.9 ??F), temperature source Oral, resp. rate 18, height 165.1 cm (65), weight 91.627 kg (202 lb), last menstrual period 05/22/2010. Pitocin at 4 milliunit/min FHTs 140s reactive to 150-160s and no decels adequate variability VE no change 1 cm/ -1 / 80%/ Posterior/soft A/ IOL at 40+6 weeks Category I FHTs Minimal cervical change P/ Charge nurse, Krista Reyes RN has requested, given the increased census on the unit, to d/c the pitocin for the night. Plan will be to restart in morning if possible. Discussed with pt and she is ok with this plan. Pt would like Ambien for sleep. Chrissy Ventura CNM - 02/14/2011 1642 EST S/ Pt feels UCs mildly. 1-3/10 on pain scale. Pt wants epidural when more active. O/Blood pressure 109/64, pulse 85, temperature 35.5 ??C (95.9 ??F), temperature source Oral, resp. rate 18, height 165.1 cm (65), weight 91.627 kg (202 lb), last menstrual period 05/22/2010. UCs every 2-4 min mild by palpation FHTs 150's reactive to 170s No decels VE 1 cm/ -1-0 station/ 80% A/ IUP 40+6 weeks Induction P/ Start pitocin now. Hold on GBS prophylaxis until more active labor Sarah Maher RN - 02/14/2011 1633 EST Assumed care of pt from John Wilkins the patient sitting on the ball,states feels that contractions are getting stronger. fhr is category one,contractions are 2-3 min apart. 1840 M Lorenzo Mobley in to see pt, cervical exam 1 cm/90%/-1 the patient to have induction stopped as unit is high census. Pitocin stopped and iv taken out. 185 discharge instructions reviewed with pt. Unit to call in am for return for induction. Chrissy Baker CNM - 02/14/2011 1220 EST S/ Pt doesn't feel any contractions. Is tired. Wants to take a nap. O/Blood pressure 86/46, pulse 74, temperature 36.4 ??C (97.5 ??F), temperature source Oral, resp. rate 18, height 165.1 cm (65), weight 91.627 kg (202 lb), last menstrual period 05/22/2010. [id number] reactive to 160s No regular contractions - irritability on EFM VE same 90% Second dose of Miso placed A/ IUP 40+6 weeks Induction of Labor - Misoprostol Category I FHT P/ EFM per protocol. Third dose Miso if able in 3-4 hours Bianca Mcclain RN - 02/14/2011 0810 EST At 0735,Patient admitted in to room 2 for scheduled induction of labor ;reason post term ; maternal discomfort. Patient voided, VS obtained, monitors on and explained, oriented to room and unit, call light in reach. Cat 1 strip Patient is alert, awake, lungs clear, abdomen soft, denies BYRNES, blurred vision, epigastric pain, VB, + FM, trace swelling noted in hands and feet. Patient states pain 0/10. Dorina/NEELIMA notified of patient arrival. Bianca Armenta RN 02/14/2011 8:10 0820- NEELIMA Velázquez at bedside, SVE Done ; discussed plan to start induction with misoprostol, pt agreeable 0910- At 0900, Isha Matos at bedside , miso placed 1005- pt sitting up eating breakfast; reports feeling mild crampiness [id number], EFM changed to telemetry; pt ambulating on bliss; plan to try birthball soon 1100- back to room ; using birthball 1220-At, 1215, NEELIMA Velázquez at bedside to place next dose of miso; pt not feeling any cramps or ctxs presently 1300-out of bed to birthball, has had A few ctxs but unaware of them 1410-EFM changed to Telemetry so that pt can ambulate on unit 1440-back to room, on birthball; reports feeling some ctxs while ambulating 1500-telemetry changed to EFM 1620-Report off to Sarah Oakley RN documented in this encounter H&P Notes William Rachel MD - 02/14/2011 0831 EST ANTEPARTUM SUMMARY . . Maternal Name: Renetta Bradley : 1990 21 y/o 2 para 0010 at 40+6/7 weeks gestation. Snyder PAYTON: 02/08/2011 PAYTON Basis: [...] 21 y/o 2; Parity: 0010; Gestational Age: 40+6/7 weeks gestation Snyder GBS Status: pos Candidate: [...] EFW: __8# Presentation: __vtx OP Cervix: Dilation: ___0____ Effacement: ____80%___ Station: __0 Position: ___posterior/soft____ SSE: Nitrazine: Ferning: Pooling: intact Pitocin Bundle: Induction 40w6d EDC: 02/08/11 Indication: Post term , maternal discomfort Prior Uterine Scar: no EFW: 8# Assessment of Pelvic Adequacy:yes Presentation: vtx Ocampo Score: 6 Informed Consent:yes Attending Concurs: yes FHR Tracins reactive to 160s no decels, adequate terminal supervisor variability. Assessment: _IUP 40+ 6 weeks Bishops score 6 Plan: Miso prostol for cervical ripening ABX for GBS when active Encourage maternal position craig to rotate baby, Elementary Supervisor Attending Attestation statement: I saw and examined the patient with the resident/fellow. I agree with the findings and plan of care documented in the resident's/fellow's note. William Rachel M.D. documented in this encounter Miscellaneous Notes Scanned Note-Null - Hog Worker, Scan - 04/26/2011 1029 EST canned Note- Null - Hog Worker, Scan - 02/16/2011 1912 EST canned Note- Null - Hog Worker, Scan - 02/14/2011 1505 EST canned Note- Null - Hog Worker, Scan - 02/14/2011 1505 EST nesthesia Pre-Eval - Borodic, Duane Hogan MD - 02/14/2011 1325 EST Obstetric Anesthesia Consult Name: RENETTA BRADLEY : 1990 Date: 02/14/2011 Age: 21 y.o. GA: 40w6d Proced Tech: Gabrielle Walden MD Obstetric History: Obstetric History Complications during : None Allergies Allergen Reactions ??? Sulfa (Sulfonamide Antibiotics) Anaphylaxis ??? Bee Pollens Anaphylaxis Anesthetic History: Anesthesia History Previous Patient or Family Problems with Anesthesia: None Airway Evaluation: Airway Evaluation Mallampati: 2 Mouth Opening: Normal Jaw Thrust: Normal Thyro-Mental Distance: Normal Neck Eval: ROM Normal Teeth: Normal Review of Systems: Smoker: Quit Quit Date: 10/16/10 History of Respiratory Infections: No Asthma: Yes Hospitalized for Asthma: No Asthma Medications: Yes Asthma Triggers: Exercise (Pt on albuterol inhaler PRN) Heart Murmur: No High Blood Pressure: No Angina/Palpitations: No Blood Vessel Disease: No Neurological Disease: No Muscular Degeneration: No Backpain/Neckpain: No Reflux/Heartburn/Hiatial Hernia: Yes GI Additional Info: Controlled Liver Disease: No Thyroid Disease: No Kidney Disease: No Diabetes: No Anemia: No Bleeding Disorders: No Previous Anesthesia for Childbirth: No Infectious Disease: No Opioid Dependency: No Contact Lenses/Glasses: None History reviewed. No pertinent past surgical history. Current Facility-Administered Medications Medication Route Frequency ??? misoprostol (CYTOTEC) tablet 200 mcg Buccal PRN ??? misoprostol (CYTOTEC) tablet 800 mcg Rectal PRN ??? carboprost (HEMABATE) intramuscular injection 250 mcg Intramuscular PRN ??? methylergonovine (METHERGINE) injection 200 mcg Intramuscular PRN ??? ibuprofen (MOTRIN) tablet 400 mg Oral PRN ??? acetaminophen (TYLENOL) tablet 650 mg Oral PRN ??? lactated ringers (LR) infusion Intravenous CONTINUOUS ??? sodium chloride 0.9 % flush 3 mL Intravenous Q8H ??? misoprostol (CYTOTEC) tablet 25 mcg Cervical QID Outpatient Prescriptions Marked as Taking for the 02/14/11 encounter (Hospital Encounter) with Gabrielle Walden MD Medication Sig Dispense Refill ??? albuterol (PROVENTIL, VENTOLIN) 90 mcg/Actuation inhaler Inhale 1 Puff as directed every 4 hoursas needed for Wheezing. 1 Inhaler 2 ??? pantoprazole (PROTONIX) 40 mg tablet Take 1 Tab by mouth daily. 90 Tab 3 ??? Vit-Iron Fumarate-FA ( VITAMIN WITH MINERALS) 28-0.8 mg Tab Take 1 Tab by mouthdaily. 30 Tab 11 ??? acetaminophen (TYLENOL) 500 mg tablet Take 2 Tabs by mouth every 6 hours as needed for Pain. 100Tab 2 Vital Signs: BP 84/46 Pulse 72 Temp(Src) 36.4 ??C (97.5 ??F) (Oral) Resp 18 Ht 165.1 cm (65) Wt 91.627 kg (202 lb) BMI 33.61 kg/m2 LMP 05/22/2010 Labs: Lab Results Component Value Date WBC [...] DNA detected by PCR. Final ASA Classification: Grade II Plan: epidural, general, spinal mode(s) of anesthesia were discussed. Pt Is 21 Y/O at 40 weeks who has a history of asthma, anxiety, and GERD who would like an epidural when she is ready. Risks discussed included: Bleeding, Infection, Nerve Injury, Spinal headaches, low blood pressures with underperfusion, high spinals, hematomas, failure and replacement. All of Renetta Trang Bradley's questions were answered to her satisfaction. Duane Cuellar MD 02/14/2011 documented in this encounter Plan of Treatment Not on filedocumented as of this encounter Procedures Procedure Name Priority Date/Time Associated Diagnosis Comme nts COMPLETE BLOOD STAT 02/14/2011 8:30 EST Result s for this COUNT procedure are i n the results section. TYPE AND SCREEN STAT 02/14/2011 8:30 EST Resul ts for this procedure are i n the results section. documented in this encounter Results TYPE AND SCREEN (02/14/2011 8:30 EST) Pathologist Sig nature ABO O [facility] Rh Factor Positive [facility] Antibody Screen NegativeComment: [facility] SPECIMEN EXPIRES AT 23:59 ON 02/17/2011 Specimen Blood specimen (specimen) Performing Organization Address City/State/ZIP Code Phon e Number [facility] [address] [place] [address] SERVICES [facility] [address] [place] [phone] HEMAGRAM (02/14/2011 8:30 EST) Pathologist Sig nature WBC 10.19 4.0 - 12.4 K/cmm [facility] RBC 4.17 3.86 - 5.04 M/cmm [facility] Hemoglobin 13.2 11.6 - 15.2 gm/dl [facility] HCT 37.9 34.9 - 44.4 % [facility] MCV 91 81 - 98 fl [facility] MCH 31.5 26.7 - 33.3 pg [facility] MCHC 34.7 32.1 - 35.9 gm/dl [facility] PLT 163 141 - 320 K/cmm [facility] RDW-CV 14.4 11.7 - 14.6 % [facility] Specimen Blood specimen (specimen) Performing Organization Address City/State/ZIP Code Phon e Number [facility] [address] [place] [address] SERVICES [facility] [address] [place] [address] documented in this encounter Visit Diagnoses Diagnosis Supervision of normal first - Primary documented in this encounter Administered Medications Inactive Administered Medications - up to 3 most recent administrations Medication Order MAR Action Action Date Dose Rate Site lactated ringers (LR) New Bag 02/14/2011 16:40 EST 150 mL/hr 150 mL/hr infusion at 150-200 mL/hr, 150-200 mL/hr, intravenous, CONTINUOUS, Starting on Sun02/14/11 at 0845, Until Sun02/14/11 at 2140, Routine misoprostol (CYTOTEC) tablet 25 mcg Given 02/14/2011 12:17 EST 25 mcg 25 mcg, cervical, 4 TIMES DAILY, First dose on Sun02/14/11 at 1200, Until Discontinued, Routine Given 02/14/2011 9:00 EST 25 mcg oxytocin in lactated ringers 30 unit/500 mL infusion Soln 1 dose, Starting on Sun02/14/11 at 1649, Until 11/17 at 1655 oxytocin in lactated Rate Change 02/14/2011 17:55 EST 4 jaymie-units/m in 4 mL/hr ringers 30 units/500 ml 1-20 jaymie-units/min (rounded to 1-20 mL/hr), intravenous, CONTINUOUS, Starting on Sun02/14/11 at 1700, Until Sun02/14/11 at 2140, Routine Rate Change 02/14/2011 17:15 EST 2 jaymie-units/min 2 mL/hr New Bag 02/14/2011 16:55 EST 1 jaymie-units/min 1 mL/hr sodium chloride 0.9 % flush 3 mL Given 02/14/2011 8:30 EST 3 mL 3 mL, intravenous, EVERY 8 HOURS, First dose on Sun02/14/11 at 0845, Until Discontinued, Routine documented in this encounter Discontinued Medications Medication Sig Discontinue Reason Start Date End Date albuterol (VENTOLIN Inhale 2 Puffs as Duplicate Therapy 04/13/2010 02/14/2011 HFA) 90 mcg/Actuation directed as needed inhaler for Wheezing. documented as of this encounter Active and Recently Administered Medications Due to Daylight Saving Time, this section may contain times in both EDT and EST. Scheduled Medication Order 02/12/2011 02/13/2011 02/14/2011 misoprostol (CYTOTEC) tablet 25 mcg (CANCELED) 0900 (Given - Provider: Bianca Armenta, KELSI)1217 (Given - Provider: Bianca Armenta, KELSI)1700 (Due) 25 mcg, Cervical, 4 TIMES DAILY, First d ose on Sun02/14/11 at 1200, Until Discontinued sodium chloride 0.9 % flush 3 mL (CANCELED) 0830 (Given - Provider: Bianca Armenta, KELSI)1600 (Due) 3 mL, Intravenous, EVERY 8 HOURS, First dose on Sun02/14/11 at 0845, Until Discontinued Continuous Medication Order 02/12/2011 02/13/2011 02/14/2011 lactated ringers (LR) infusion (CANCELED) 0907 (Hold - Provider: Bianca Armenta RN - Reason: Other)1640 (New Bag - Provider: Sarah Oakley RN) at 150-200 mL/hr, Intravenous, CONTINUOU S, Starting Sun02/14/11 at 0845, Until Sun02/14/11 at 2140 oxytocin in lactated ringers 30 units/500 ml (CANCELED) 1655 (New Bag - Provider: Sarah Oakley RN)1715 (Rate Change - Provider: Sarah Oakley RN)1755 (Rate Change - Provider: Sarah Oakley RN)1835 (Completed - Provider: Sarah Oakley RN - Comment: stopped induction secondary to high censu 1-20 jaymie-units/min = 1-20 mL/hr, Intra venous, CONTINUOUS, Starting Sun02/14/11 at 1700, Until Sun02/14/11 at 2140 s.) documented in this encounter Orders Medications Ordered That Might Not Have Count Last Ord ered Date First Ordered Date Been Administered acetaminophen (TYLENOL) tablet 650 mg 1 02/14/2011 albuterol (PROVENTIL HFA, VENTOLIN HFA) 1 02/15/20 11 inhaler 1 Puff albuterol (PROVENTIL, VENTOLIN) 90 1 02/14/2011 mcg/Actuation inhaler 1 Puff carboprost (HEMABATE) intramuscular 1 02/14/2011 injection 250 mcg ibuprofen (MOTRIN) tablet 400 mg 1 02/14/2011 methylergonovine (METHERGINE) injection 1 02/15/20 11 200 mcg misoprostol (CYTOTEC) tablet 200 mcg 1 02/14/2011 misoprostol (CYTOTEC) tablet 800 mcg 1 02/14/2011 oxytocin in lactated ringers 30 units/500 2 2010 ml Zolpidem 5 mg??Tab STARTER PACK 1 02/14/2011 Admission Count Last Ordered Date First Ordered Date ADMIT TO INPATIENT 1 02/14/2011 NOTIFY PPS OF DISCHARGE COMPLETE 1 02/14/2011 Discharge Count Last Ordered Date First Ordered Date DISCHARGE PATIENT 1 02/14/2011 documented in this encounter Care Teams Inventory Control Specialist Relationship Specialty Start Date End Date Carmela Sanchez MD PCP - General 07/30/08 08/13/[address] [place] [phone] documented as of this encounter
--- OUTSIDE RECORDS SUMMARY | 2021-10-28 15:11 | XMS_ITS | Encounter Summary ---
:1990 Author Organization [facility] Address [address] [place] [address] Care Team Providers Name Role Phone Carmela Sanchez MD Primary Care Provider Reason for Visit Reason Onset Date Comments Contractions 01/10/2011 Encounter Details Date Type Department Care Team Description 01/10/[address] [facility] Lety Slater [place] [address] [phone] Social History Tobacco Use Types Packs/Day Years [...] this encounter Miscellaneous Notes Telephone Encounter - Lety Person - 01/10/2011 1105 EDT 35+6 week gestation Reports ctx timeable at 20 min beginning 01/09/2011 - pt slept through night, waking only occasionally. VNA nurse with patient at present - reports ctx are mild Pt reports decreased FM since yesterday A: probable trini - nixon activity Need to assess well being P: Pt enc to continue to drink fluids NST scheduled at 1230 today Pt has transportation to [place] documented in this encounter Plan of Treatment Not on filedocumented as of this encounter Visit Diagnoses Not on filedocumented in this encounter Care Teams Chronic Disease Epidemiologist Relationship Specialty Start Date End Date Carmela Sanchez MD PCP - General 07/30/08 08/13/[address] [place] [phone] documented as of this encounter
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
--- OUTSIDE RECORDS SUMMARY | 2021-10-28 15:11 | XMS_ITS | Encounter Summary ---
:1990 Author Organization [facility] Address [address] [place] [address] Care Team Providers Name Role Phone Carmela Sanchez MD Primary Care Provider Reason for Visit Reason Onset Date Comments Follow-up 01/10/2011 variable on FHR trac ing/NST Encounter Details Date Type Department Care Team Description 01/10/2011 Orders Only [facility] Naya, Decreased Women's Services - Apolinar Davidson RN movements, affecting [place] [address] [facility] management of mother, [address], [place] antepartum (Primary Dx) [place] [id number] Social History Tobacco Use Types Packs/Day Years [...] 13:04 EST documented as of this encounter Plan of Treatment Not on filedocumented as of this encounter Procedures Procedure Name Priority Date/Time Associated Diagnosis Comme nts DETENTION LIMITED EXAM Routine 01/10/2011 13:22 EDT Decreased Results for this movements, affecting procedu re are in management of the results mother, antepartum section. documented in this encounter Results DETENTION LIMITED EXAM (01/10/2011 13:22 EDT) Anatomical Region Laterality Modality Other Specimen Narrative [facility] RADIOLOGY - 01/10/2011 13:30 EDT Indication: Variables on NST; Decreased movement. History: Age: 21 years. : 1 Para: 0. LMP not sure. Current : Pre- data: Weight 165 lbs. Height 5 ft 5 ins. BMI 27.5. Dating: Best Overall Assessment: 09/12/2010 EDC: 02/08/2011 Assessed GA: 35w6d The Best Overall Assessment is based on an earlier assessment on 08/03/2010. General Evaluation: heart activity: Present. hea rt rate: 131 bpm. Presentation: cephalic, Spine left. movement: present. Amniotic Fluid: Normal. NENA ??22.9 cm. M aximal vertical pocket 8.4 cm. Placenta: Posterior. Placenta Grade: Gra de 1. Structure: normal. Wellbeing Assessment: Amniotic fluid: Normal. NENA: 22.9 cm. MV P: 8.4 cm. Q1: 8.4 cm. Q2: 3.9 cm. Q3: 3.2 cm. Q4: 7.4 cm. Non Stress Test: reactive. heart r ate: 130 bpm. There was a variable on the non-stress test but othe rwise reassuring. Report Summary: Impression: [id number] Limited obstetrical sc an A limited study was performed for amniot ic fluid assessment. body and extremity movement was no kristy. The amniotic fluid was normal. Recommendations: Follow-up as clinically indicated. Growth Overview: Date GA BPD [mm] HC [mm] AC [mm] FL [mm] HUM [mm] EFW GP 08/03/2010 13 + 0 ... ... ... ... ... .. . ... 09/12/2010 18 + 5 40.9 37th 152.4 21st 1 35.7 57th 26.9 25th 25.3 27th ... ... 11/21/2010 28 + 5 71.9 42nd 260.3 11th 2 54.1 70th 52.3 14th 45.2 8th 1294g , 2 lbs 14 ozs 42nd%% 01/10/2011 35 + 6 ... ... ... ... ... .. . ... Procedure Note 01/10/2011 Indication: Variables on NST; Decreased movement. History: Age: 21 years. : 1 Para: 0. LMP not sure. Current : Pre- data: Weight 165 lbs. Height 5 ft 5 ins. BMI 27.5. Dating: Best Overall Assessment: 09/12/2010 EDC: 02/08/2011 Assessed GA: 35w6d The Best Overall Assessment is based on an earlier assessment on 08/03/2010. General Evaluation: heart activity: Present. hea rt rate: 131 bpm. Presentation: cephalic, Spine left. movement: present. Amniotic Fluid: Normal. NENA 22.9 cm. Max imal vertical pocket 8.4 cm. Placenta: Posterior. Placenta Grade: Gra de 1. Structure: normal. Wellbeing Assessment: Amniotic fluid: Normal. NENA: 22.9 cm. MV P: 8.4 cm. Q1: 8.4 cm. Q2: 3.9 cm. Q3: 3.2 cm. Q4: 7.4 cm. Non Stress Test: reactive. heart r ate: 130 bpm. There was a variable on the non-stress test but othe rwise reassuring. Report Summary: Impression: [id number] Limited obstetrical sc an A limited study was performed for amniot ic fluid assessment. body and extremity movement was no kristy. The amniotic fluid was normal. Recommendations: Follow-up as clinically indicated. Growth Overview: Date GA BPD [mm] HC [mm] AC [mm] FL [mm] HUM [mm] EFW GP 08/03/2010 13 + 0 ... ... ... ... ... .. . ... 09/12/2010 18 + 5 40.9 37th 152.4 21st 1 35.7 57th 26.9 25th 25.3 27th ... ... 11/21/2010 28 + 5 71.9 42nd 260.3 11th 2 54.1 70th 52.3 14th 45.2 8th 1294g , 2 lbs 14 ozs 42nd%% 01/10/2011 35 + 6 ... ... ... ... ... .. . ... Performing Organization Address City/State/ZIP Code Phon e Number [facility] RADIOLOGY [facility] documented in this encounter Visit Diagnoses Diagnosis Decreased movements, affecting man agement of mother, antepartum - Primary documented in this encounter Care Teams Energy Analyst Relationship Specialty Start Date End Date Carmela Sanchez MD PCP - General 07/30/08 08/13/[address] [place] [address] [phone] documented as of this encounter
--- OUTSIDE RECORDS SUMMARY | 2021-10-28 15:11 | XMS_ITS | Encounter Summary ---
:1990 Author Organization [facility] Address [address] [place] [address] Care Team Providers Name Role Phone Carmela Sanchez MD Primary Care Provider Reason for Visit Reason Comments Vaginal Bleeding Reports Mirena placement alejo nicole 2 weeks ago. Had spotting initially and then several days of hea vy bleeding. 2 nights ago had sex for first time since placement. Reports very heavy bleeding c/ clots since, approx 1 pad every ho ur or 2. + nausea, headache, fatigue. + cramping starting yesterday, currently 09/16. Encounter Details Date Type Department Care Team Description 05/04/2011 Emergency [facility] Luis Eduardo Wren P A-C [address] [place] [address] Heavy vaginal bleeding due to contracept amina implant use; Emergency Department Andrez Florez PA-C [address] [place] [id number] Ovarian cyst - [facility] Emergency, MD Jeff [address] [place] [address] Social History Tobacco Use Types [...] Sign Reading Time Taken Comments Blood Pressure 110/74 05/04/2011 2300 EST Pulse - - Temperature 36.4 ??C (97.5 ??F) 05/04/2011 1843 EST Respiratory Rate 14 05/04/2011 2300 EST Oxygen Saturation 100% 05/04/2011 2300 EST Inhaled Oxygen Concentration - - Weight - - Height - - Body Mass Index - - documented in this encounter Functional Status Cognitive Status Response Date of Assessment Because of a physical, mental, or emotional condition, do Ye s 02/16/2011 you have serious difficulty concentrating, remembering, or making decisions? (5 years old or older) documented as of this encounter Discharge Instructions Luis Eduardo Calero - 05/04/2011 If you develop increased or continued heavy bleeding follow up with your PCP / OGBYN. Your blood levels are stable and do not suggest that you are anemic. Your IUD is in place. It is possible that your vaginal bleeding has been caused by the recent implantation of this device. AttachmentsThe following attachments cannot be sent through Care Everywhere. VAGINAL BLEEDING IN NON WOMEN: AFTER YOUR VISIT (BELARUSIAN)documented in this encounter Medications at Time of Discharge Medication Sig Dispensed Refills Start Date End Date acetaminophen (TYLENOL) Take 1,000 mg by 0 05/14/2011 500 mg tablet mouth every 6 hours. albuterol (PROVENTIL, Inhale 1 Puff as 1 Inhaler 2 02/10/20 11 05/13/2011 VENTOLIN) 90 directed every 4 mcg/Actuation inhaler hours as needed for Wheezing. ibuprofen (MOTRIN) 400 mg Take 1 Tab by mouth 30 Each 1 1 04/20/2010 05/13/2011 tablet every 4 hours as needed for Pain. pantoprazole (PROTONIX) Take 1 Tab by mouth 90 Tab 3 09/25/2011 40 mg tablet daily. phenytoin (DILANTIN) 100 Take 3 Caps by mouth 90 Cap 2 1 06/05/2010 05/14/2011 mg ER capsuleIndications: daily. Seizure (HCC-CMS) (HCC) phenytoin (DILANTIN) 50 Take 1 Tab by mouth 90 Tab 2 08/201105/14/2011 mg chewable 3 times daily. tabletIndications: Seizure (HCC-CMS) (HCC) documented as of this encounter Discharge Disposition Disposition Code Departure Means Destination Home or Self Care Car Home documented in this encounter ED Notes Luis Eduardo Wren - 05/05/2011 2016 EST DOS: 05/04/2011 Chief Complaint Patient presents with ??? Vaginal Bleeding Reports Mirena placement approx 2 weeks ago. Had spotting initially and then several days of heavy bleeding. 2 nights ago had sex for first time since placement. Reports very heavy bleeding c/ clots since, approx 1 pad every hour or 2. + nausea, headache, fatigue. + cramping starting yesterday, currently 09/16. The patient is a 21 y.o. female who presents today with Vaginal Bleeding HPI Comments: Pt is a 21 yo male who presents to the ED with complaints of vaginal bleeding which began two days ago. She states the bleeding occurred after intercourse two days ago. Pt states she had a mirena placed two weeks ago. She initially noticed vaginal spotting then became heavier bleeding. She endorses mild dyspareunia. Has been bleeding 1 pad per hour. She denies syncopal episodes. Endorses feeling nauseated with a headache and abdominal cramping. The history is provided by the patient and medical records. Review of Systems Constitutional: Negative for fever and chills. HENT: Negative for neck stiffness. Eyes: Negative for visual disturbance. Respiratory: Negative for shortness of breath. Cardiovascular: Negative for chest pain. Gastrointestinal: Negative for abdominal pain. Genitourinary: Positive for hematuria, vaginal bleeding and dyspareunia. Negative for dysuria, vaginal discharge and vaginal pain. Musculoskeletal: Negative for back pain. Skin: Negative for rash. Neurological: Negative for [...] Quit date: 09/29/2010 ??? Alcohol Use: No Family History Problem Relation Age of Onset ??? Depression Mother ??? Depression Maternal Grandfather severe ??? Hypertension Maternal Grandfather ??? Diabetes Maternal Grandfather ??? Cancer Paternal Grandmother Vital Signs Temp: 36.4 ??C (97.5 ??F) Temp src: Tympanic Heart Rate: 88 BPM Resp: 14 SpO2: 100 % BP: 110/74 mmHg BP Device: BP Machine Patient Position: Sitting BP Cuff Location: Left arm O2 Device: None (Room air) Physical Exam Nursing note and vitals reviewed. Constitutional: She is oriented to person, place, and time. She appears well- developed and well-nourished. No distress. Non toxic appearing / good color HENT: Head: Normocephalic and atraumatic. Nose: Nose normal. Eyes: EOM are normal. Right eye exhibits [...] normal. She exhibits no distension. There is tenderness (mild suprapubic ttp). Genitourinary: Uterus normal. Pelvic exam was performed with patient supine. No labial fusion. Thereis no rash, tenderness, lesion or injury on the right labia. There is no rash, tenderness, lesion orinjury on the left labia. Cervix exhibits no motion tenderness, no discharge and no friability. Right adnexum displays tenderness. Right adnexum displays no mass and no fullness. Left adnexum displays tenderness. Left adnexum displays no mass and no fullness. There is bleeding around the vagina. No erythema or tenderness around the vagina. No foreign body around the vagina. No signs of injury around the vagina. No vaginal discharge found. + blood in vault Musculoskeletal: Normal range of motion. Lymphadenopathy: She has no cervical adenopathy. Neurological: She is alert and oriented to person, place, and time. She has normal strength. No sensory deficit. Skin: Skin is warm. No rash noted. She is not diaphoretic. Psychiatric: She has a normal mood and affect. Radiology orders: RAD US PELVIS, TRANSVAGINAL, AND LIMITED DOPPLER RAD US PELVIS, TRANSVAGINAL, AND LIMITED DOPPLER Final result not shown here.: Procedures Labs Reviewed POCT URINE DIPSTICK - Abnormal; Notable for the following: Bilirubin 1+ (*) Ketones Trace (*) Blood 3+ (*) Protein Trace (*) All other components within normal limits POCT URINE TEST - Normal HEMAGRAM ED Course: A medical screening exam was performed. 21 yo female with vaginal bleeding 2 weeks s/p merena placement. Occurred after intercourse. Pelvic exam --> + blood in vault and bilateral adnexal tendernessto palpation. A transvaginal US was ordered to rule out fibroids and improper IUD placement. US shows proper placement of IUD and small amount of free fluid within the pelvis. Labs show a stable H/H. Will d/c home with bleeding precautions. Disposition: Discharged The patient's pain was managed to an adequate level weighing risk vs. benefit of further medications. Upon departure from the Emergency Department, the patient's pain was 0 on a zero to ten scale. Condition at departure from the Emergency Department: Improved Discharge Prescriptions New Prescriptions No Discharge Prescriptions for this patient MDM Number of Diagnoses or Management Options Heavy vaginal bleeding due to contraceptive implant use: Ovarian cyst: Diagnosis management comments: 3 1. Heavy vaginal bleeding due to contraceptive implant use 2. Ovarian cyst PCP: Carmela Sanchez MD Ben Smith 05/05/2011 20:34 Leann Gallagher RN - 05/04/2011 7572 EST Pt verbalized understanding of d/c instructions. Leann Gallagher RN - 05/04/2011 2301 EST Pt returned from US. Pt sleeping but awakens easily. Pt denies pain but states she is tired. Friend at bedside. Leann Gallagher RN - 05/04/2011 2157 EST Pt still in US. Friend in room with baby. Leann Gallagher RN - 05/04/2011 1944 EST Pelvic exam completed by CARMELA Wren with nurse at bedside. Pt tolerated well. Call lucas within reach. Leann Gallagher RN - 05/04/2011 1928 EST Labs drawn and sent. IV established, normal saline infusing. Call lucas within reach. Leann Gallagher RN - 05/04/2011 1915 EST 3+ Blood in urine. CARMELA Randhawa aware. documented in this encounter Miscellaneous Notes Scanned Note-Null - Production Assembly Supervisor, Scan - 05/05/2011 230 EST documented in this encounter Plan of Treatment Not on filedocumented as of this encounter Procedures Procedure Name Priority Date/Time Associated Diagnosis Comme nts RAD US PELVIS, STAT 05/04/2011 21:51 Results f or this TRANSVAGINAL, AND EST procedure are in LIMITED DOPPLER the results section. COMPLETE BLOOD STAT 05/04/2011 19:25 Results f or this COUNT EST procedure are i n the results section. POCT STAT 05/04/2011 19:15 Results f or this TEST, VISUAL READ EST procedure are in the results section. POCT URINE STAT 05/04/2011 19:08 Results for this DIPSTICK, CLINITEK EST procedure are in the results section. documented in this encounter Results RAD US PELVIS, TRANSVAGINAL, AND LIMITED DOPPLER (05/04/2011 21:51 EST) Anatomical Region Laterality Modality Other Specimen Narrative [facility] RADIOLOGY - 05/05/2011 9:20 EST US PELVIS, TRANSVAGINAL, AND LMT DOPPLER ??May 04, 2011 09:51:00 PM Signs and Symptoms/Comments: ??VAGINAL B LEEDING / 2 months s/p vaginal delivery / recent placement of merena ri ng / dypareunia with bleeding 2 days ago/ bleeding continues/ pelvic e xam + bilateral adnexal ttp Comparison: January 10, 2011. Technique: Static, cine Doppler and spec tral ultrasound images of the pelvis were obtained transabdominally an d transvaginally. Findings: The uterus measures 8.9 x 5.4 x 4.6 cm a nd is anteflexed. The endometrial double wall thickness measur e 0.9 cm. An IUD appears properly positioned within the endometri al canal. The right ovary measures 2.0 x 1.6 x 2.0 cm and is normal in appearance. Normal Doppler flow is demon strated the right ovary. The left ovary measures 2.0 x 3.0 x 1.8 cm and is normal in appearance. A single cyst within the lef t ovary measures 2.4 x 2.1 x 1.7 cm and likely reflects a dominant fo llicle. Normal Doppler flow is demonstrated left ovary. There is anechoic free fluid within the pelvis, with a pocket adjacent to the left ovary the measures approximately 2 cm in diameter. Impression: 1. IUD properly positioned within the ov estrella. 2. No ovarian torsion. 3. No leiomyoma identified. 4. Left dominant follicle. 5. Free fluid, may be physiologic ?? Findings were discussed with Luis Eduardo Angeles on May 04, 2011 at 11:00 p.m. I have personally reviewed the images an d the above interpretation and agree with the findings. Procedure Note Tom Angeles MD - 05/05/2011 US PELVIS, TRANSVAGINAL, AND LMT DOPPLER May 04, 2011 09:51:00 PM Signs and Symptoms/Comments: VAGINAL BLE EDING / 2 months s/p vaginal delivery / recent placement of merena ri ng / dypareunia with bleeding 2 days ago/ bleeding continues/ pelvic e xam + bilateral adnexal ttp Comparison: January 10, 2011. Technique: Static, cine Doppler and spec tral ultrasound images of the pelvis were obtained transabdominally an d transvaginally. Findings: The uterus measures 8.9 x 5.4 x 4.6 cm a nd is anteflexed. The endometrial double wall thickness measur e 0.9 cm. An IUD appears properly positioned within the endometri al canal. The right ovary measures 2.0 x 1.6 x 2.0 cm and is normal in appearance. Normal Doppler flow is demon strated the right ovary. The left ovary measures 2.0 x 3.0 x 1.8 cm and is normal in appearance. A single cyst within the lef t ovary measures 2.4 x 2.1 x 1.7 cm and likely reflects a dominant fo llicle. Normal Doppler flow is demonstrated left ovary. There is anechoic free fluid within the pelvis, with a pocket adjacent to the left ovary the measures approximately 2 cm in diameter. Impression: 1. IUD properly positioned within the ov estrella. 2. No ovarian torsion. 3. No leiomyoma identified. 4. Left dominant follicle. 5. Free fluid, may be physiologic Findings were discussed with Luis Eduardo Angeles on May 04, 2011 at 11:00 p.m. I have personally reviewed the images an d the above interpretation and agree with the findings. Performing Organization Address City/State/ZIP Code Phon e Number [facility] RADIOLOGY HEMAGRAM (05/04/2011 19:25 EST) Pathologist Sig nature WBC 5.98 4.0 - 12.4 K/cmm [facility] RBC 4.43 3.86 - 5.04 M/cmm [facility] Hemoglobin 14.0 11.6 - 15.2 gm/dl [facility] HCT 40.7 34.9 - 44.4 % [facility] MCV 92 81 - 98 fl [facility] MCH 31.6 26.7 - 33.3 pg [facility] MCHC 34.4 32.1 - 35.9 gm/dl [facility] PLT 201 141 - 320 K/cmm [facility] RDW-CV 14.4 11.7 - 14.6 % [facility] Specimen Blood specimen (specimen) Performing Organization Address [facility]/ZIP Code Phon e Number [facility] [address] [place] [address] [facility] [address] [place] [address] POCT URINE TEST (05/04/2011 19:15 EST) Pathologist Sig nature Test, Negative Reference Range, POINT OF CARE Urine, POC Negative Control Line Present Yes POINT OF CARE Background Clear? Yes POINT OF CARE Specimen Urine (substance) Performing Organization Address [facility] Phon e Number [facility] POINT OF CARE POINT OF CARE (ABNORMAL) POCT URINE DIPSTICK (05/04/2011 19:08 EST) Color MICHELE [facility] Clarity, UA Clear [facility] Glucose Neg Neg [facility] Bilirubin 1+ (A) Neg [facility] Ketones Trace (A) Neg [facility] Specific [place] >=1.030 1.001 - 1.035 [facility] Blood 3+ (A) Neg [facility] pH 6.0 4.6 - 8.0 [facility] Protein Trace (A) Neg [facility] Urobilinogen 0.2 0.2 - 1.0 [facility] E.U./dl LAB Nitrite Neg Neg [facility] Leuk Esterase Neg Neg [facility] director of dietary ID [id number]: [facility] Test Performed by LAB Nursing Services Specimen Urine (substance) Performing Organization Address [facility]/ZIP [facility] Phon e Number [facility] [address] [place] [address] [facility] [address] [place] [address] documented in this encounter Visit Diagnoses Diagnosis Heavy vaginal bleeding due to contracept amina implant use Other specified noninflammatory disorder of vagina Ovarian cyst Other and unspecified ovarian cyst documented in this encounter Administered Medications Inactive Administered Medications - up to 3 most recent administrations Medication Order MAR Action Action Date Dose Rate Site ketorolac (TORADOL) 30 mg/mL (1 mL) inje ction 1 dose, Starting on Kelly 05/04/11 at 1946, Until Kelly 04/10 09/18 at 195 ketorolac (TORADOL) injection 15 mg Given 05/04/2011 19:51 EST 15 mg 15 mg, intravenous, NOW X1, 1 dose, On Kelly 05/04/11 at 2014, STAT sodium chloride (NS) 0.9 % 1,000 mL BOLU S Given 05/04/2011 19:28 EST 1,000 mL 1,000 mL, intravenous, ONCE, 1 dose, Starting on Kelly 05/04/11 at 1945, Until Kelly 05/04/11 at 1928, STAT documented in this encounter Discontinued Medications Medication Sig Discontinue Reason Start Date End Date fluoxetine (PROZAC) 20 mg Take 1 Cap by mouth Therapy completed 05/201005/04/2011 capsuleIndications: daily. Depression fluconazole (DIFLUCAN) Take 1 Tab by mouth Therapy completed 201105/04/2011 150 mg tabletIndications: daily. Vaginitis miconazole (MONISTAT-7) 2 Apply twice daily Therapy completed 04/1305/04/2011 % vaginal to affected areas. creamIndications: Vaginitis acetaminophen (TYLENOL) Take 2 Tabs by Therapy completed 02/18/2011 05/04/2011 325 mg tablet mouth every 4 hours as needed for Pain. documented as of this encounter Historical Medications This list may reflect changes made after this encounter. Medication Sig Dispensed Refills Start Date End Date acetaminophen (TYLENOL) 500 Take 1,000 mg by 0 05/14/2011 mg tablet mouth every 6 hours. added in this encounter Active and Recently Administered Medications Times are shown in EST. Scheduled Medication Order 05/02/2011 05/03/2011 05/04/2011 ketorolac (TORADOL) injection 15 mg (COMPLETED) 1950 (Given - Provider: Leann Hand RN) 15 mg, intravenous, NOW X1, 1 dose, Kelly 05/04/11 at 2015, STAT sodium chloride (NS) 0.9 % 1,000 mL BOLUS (COMPLETED) 1927 (Given - Provider: Leann Hand RN) 1,000 mL, Intravenous, ONCE, 1 dose, First dose on Kelly 05/04/11 a t 194 documented in this encounter Orders Nursing Count Last Ordered Date First Ordered Date INSERT SALINE LOCK 1 05/04/2011 documented in this encounter Care Teams Clock Repair Technician Relationship Specialty Start Date End Date Carmela Sanchez MD PCP - General 07/30/08 08/13/[address] [place] [address] [phone] documented as of this encounter
--- OUTSIDE RECORDS SUMMARY | 2021-10-28 15:11 | XMS_ITS | Encounter Summary ---
:1990 Author Organization [facility] Address [address] [place] [address] Care Team Providers Name Role Phone Carmela Sanchez MD Primary Care Provider Encounter Details Date Type Department Care Team Description 04/28/2011 Orders Only [facility] Tisha Lynch E ncounter for IUD Women's Services - SET DESIGNER CNM insertion (Primary [facility] [address] Dx) [address] [place], [place] [id number] [place] [address] [place], [address] [place] [address] (Wo rk) Social History Tobacco [...] Date/Time Associated Diagnosis Comme nts POCT Routine 04/18/2011 15:50 Encounter for IUD Resu lts for this TEST, VISUAL READ EST insertion procedure are in the results section. documented in this encounter Results POCT URINE TEST (04/18/2011 15:50 EST) Pathologist Sig nature Test, Negative Reference Range, POINT OF CARE Urine, POC Negative Control Line Present Yes POINT OF CARE Background Clear? Yes POINT OF CARE Specimen Urine (substance) Performing Organization Address City/State/ZIP Code Phon e Number [facility] POINT OF CARE POINT OF CARE documented in this encounter Visit Diagnoses Diagnosis Encounter for IUD insertion - Primary Encounter for insertion of intrauterine contraceptive device documented in this encounter Care Teams Landscape Crew Member Relationship Specialty Start Date End Date Carmela Sanchez MD PCP - General 07/30/08 08/13/[address] [place] [phone] documented as of this encounter
--- OUTSIDE RECORDS SUMMARY | 2021-10-28 15:11 | XMS_ITS | Encounter Summary ---
:1990 Author Organization [facility] Address [address] [place] [address] Care Team Providers Name Role Phone Carmela Sanchez MD Primary Care Provider Reason for Visit Reason Onset Date Comments URI 03/14/2011 Encounter Details Date Type Department Care Team Description 03/14/2011 Telephone [facility] Carmela Sharma MD URI [address] [phone] (Wo rk) Social History Tobacco Use Types [...] this encounter Miscellaneous Notes Telephone Encounter - Di Bueno MD - 03/15/2011 1123 EST Agree with plan elephone Encounter - Gabrielle Leonard LPN - 03/15/2011 1038 EST Spoke with patient she has had a cold for about 3 days. Cough, congestion, runny nose. Have advised sudafed and Robitussin DM. Protocol # 130 Pain level 0 Patient Education Topic: over the counter treatment for nursing Mom Method: Verbal Taught to: Patient Barriers: None Outcomes: verbalized understanding Signature:ABNER Cisneros was supervised by Di Bueno MD who was present and immediately available in the office suite. 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 documented in this encounter Plan of Treatment Not on filedocumented as of this encounter Visit Diagnoses Not on filedocumented in this encounter Care Teams Hand Grinder Relationship Specialty Start Date End Date Carmela Sanchez MD PCP - General 07/30/08 08/13/[address] [place] [phone] documented as of this encounter
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
--- OUTSIDE RECORDS SUMMARY | 2021-10-28 15:11 | XMS_ITS | Encounter Summary ---
:1990 Author Organization [facility] Address [address] [place] [address] Care Team Providers Name Role Phone Carmela Sanchez MD Primary Care Provider Encounter Details Date Type Department Care Team Description 03/29/2011 Results Only [facility] Tisha Reich, Women's Services - [address] [address] [facility] [place] [phone] (Wo rk) Social History Tobacco Use Types [...] Diagnosis Comme nts PAP TEST- RESULT Routine 03/29/2011 0:00 EST Resu lts for this ONLY procedure are i n the results section. documented in this encounter Results PAP TEST- RESULT ONLY (03/29/2011 0:00 EST) Pathology Report: CYTOPATHOLOGY REPORT JUNIOR MENDOZA Reports generated via electronic interface contain matthew ginal data; however they are lacking the format of the original re port. Caution should be taken when reading/interpreting unfo rmatted reports. Name: ? RENETTA DAWKINS ? Accession #: ? [id number] : ? 1990 (Age: 21) ??F ?Collect Date: ? 03/10 Location: ? OBGYN ? Receive Leandro e: ? 03/31/2011 Provider: ?[facility] Copy to: ? Specimen/Source: ? Pap Test, Cervix/Endocervix, ThinPrep Imaging System with manual evaluation Last Menstrual Period: ? Menstrual/ Status: ? Post : 6 wks ? SPECIMEN ADEQUACY ? Satisfactory for Evaluation - transformation zone component present GENERAL CATEGORIZATION ? Negative for Intraepithelial Lesion or Malignan cy ? Document reviewed and electronically signed by: ? MADHURI Busby(ASCP) ? Report Date: ??04/06/2011 11:19 End of Report Specimen Performing Organization Address City/State/ZIP Code Phon e Number [facility] [address] [place] [address] [facility] [address] [place] [address] documented in this encounter Visit Diagnoses Not on filedocumented in this encounter Care Teams Brokerage Manager Relationship Specialty Start Date End Date Carmela Sanchez MD PCP - General 07/30/08 08/13/11 [address] [place] [phone] documented as of this encounter
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
--- OUTSIDE RECORDS SUMMARY | 2021-10-28 15:11 | XMS_ITS | Encounter Summary ---
:1990 Author Organization [facility] Address [address] [place] [address] Care Team Providers Name Role Phone Carmela Sanchez MD Primary Care Provider Encounter Details Date Type Department Care Team Description 04/05/2011 Hospital Encounter [facility] - Main Unknown, Provider, [place] MD [address] [facility] [phone] [place] [address] (Work) [phone] Social History Tobacco Use Types Packs/Day Years [...] mcg/Actuation inhaler hours as needed for Wheezing. fluoxetine (PROZAC) 20 mg Take 1 Cap by mouth 30 Cap 5 1 05/11/2010 05/04/2011 capsuleIndications: daily. Depression ibuprofen (MOTRIN) 400 mg Take 1 Tab by mouth 30 Each 1 1 04/20/2010 05/13/2011 tablet every 4 hours as needed for Pain. pantoprazole (PROTONIX) Take 1 Tab by mouth 90 Tab 3 09/25/2011 40 mg tablet daily. phenytoin (DILANTIN) 100 Take 3 Caps by mouth 90 Cap 2 1 06/05/2010 05/14/2011 mg ER capsuleIndications: daily. Seizure (HCC-CMS) (HCC) documented as of this encounter Discharge Disposition Disposition Code Departure Means Destination Home or Self Long-Term documented in this encounter Plan of Treatment Not on filedocumented as of this encounter Visit Diagnoses Not on filedocumented in this encounter Care Teams Board Handler Relationship Specialty Start Date End Date Carmela Sanchez MD PCP - General 07/30/08 08/13/[address] [place] [phone] documented as of this encounter
--- OUTSIDE RECORDS SUMMARY | 2021-10-28 15:11 | XMS_ITS | Encounter Summary ---
:1990 Author Organization [facility] Address [address] [place] [address] Care Team Providers Name Role Phone Carmela Sanchez MD Primary Care Provider Reason for Visit Reason Onset Date Comments Menstrual Problem 04/26/2011 Encounter Details Date Type Department Care Team Description 04/26/2011 Telephone [facility] Women[facility] Megan Martines RN Menstrual Problem Services - [facility] [address] [place] [address] Social History Tobacco Use Types [...] this encounter Miscellaneous Notes Telephone Encounter - Megan Martines RN - 04/26/2011 9783 EST PC/pt: calling re spotting and sporadic heavy bleeding (1 napkin & pad ~q2-3 hrs) since IUD insertion. Mirena inserted 04/18/11 (1 week ago) [facility] ?secure VM Pt did not return PC documented in this encounter Plan of Treatment Not on filedocumented as of this encounter Visit Diagnoses Not on filedocumented in this encounter Care Teams Pump Tester Relationship Specialty Start Date End Date Carmela Sanchez MD PCP - General 07/30/08 08/13/[address] [place] [phone] documented as of this encounter
--- OUTSIDE RECORDS SUMMARY | 2021-10-28 15:11 | XMS_ITS | Encounter Summary ---
:1990 Author Organization [facility] Address [address] [place] [address] Care Team Providers Name Role Phone Carmela Sanchez MD Primary Care Provider Reason for Visit Reason Comments Routine Visit contractions throughout the day on and off painful- Encounter Details Date Type Department Care Team Description 02/09/2011 Routine [facility] Chrissy Ventura, [place]: 40w1d Women's Services [address] [address] [address], [place] [address] (Wo rk) Social History Tobacco [...] Sign Reading Time Taken Comments Blood Pressure 112/82 02/09/2011 1132 EDT Pulse - - Temperature - - Respiratory Rate - - Oxygen Saturation - - Inhaled Oxygen Concentration - - Weight 92.3 kg (203 lb 6.4 oz) 02/09/2011 1132 EDT Height - - Body Mass Index 33.85 01/04/2011 1107 EDT documented in this encounter Ordered Prescriptions Prescription Sig Dispensed Refills Start Date End Date albuterol (PROVENTIL, Inhale 1 Puff as 1 Inhaler 2 02/10/20 11 05/13/2011 VENTOLIN) 90 directed every 4 mcg/Actuation inhaler hours as needed for Wheezing. documented in this encounter Progress Notes Chrissy Ventura CNM - 02/09/2011 1557 EDT S/ Complained of more severe cramping and contractions the last two days. On and off but difficult to sleep. + FM. No bleeding or loss of fluid. Asking about induction of labor. I am having difficultymoving even around my apartment. O/.Blood pressure 112/82, weight 92.262 kg (203 lb 6.4 oz), last menstrual period 05/22/2010. See flow + FHTs 130 FH 39 cm VTX cx posterior/-1/FT in os 3 ex os/ 80% Unable to strip A/ IUP 40+ weeks Ocampo score 6 P/ Discussed risks vs benefits to induction. Plan gel 02/13 and pitocin 02/14 if no labor by then. Reviewed when to call in labor and come in. documented in this encounter Plan of Treatment Not on filedocumented as of this encounter Visit Diagnoses Diagnosis Extrinsic asthma, unspecified - Primary Supervision of normal first documented in this encounter Care Teams Chief Technician X Ray Relationship Specialty Start Date End Date Carmela Sanchez MD PCP - General 07/30/08 08/13/[address] [place] [phone] documented as of this encounter
--- OUTSIDE RECORDS SUMMARY | 2021-10-28 15:11 | XMS_ITS | Encounter Summary ---
:1990 Author Organization [facility] Address [address] [place] [address] Care Team Providers Name Role Phone Carmela Sanchez MD Primary Care Provider Reason for Visit Reason Comments Contraception mirena insert Encounter Details Date Type Department Care Team Description 04/18/2011 Office Visit [facility] Tisha Lynch E ncounter for IUD Women's Services - CENTRAL OFFICE EQUIPMENT ENGINEER CNM insertion (Primary Main [place] [address] [place] [address]) [address] [place], [place] [id number] [place] [address] [place], [address] [place] [phone] (Wo rk) Social History Tobacco [...] Sign Reading Time Taken Comments Blood Pressure 98/66 04/18/2011 1607 EST Pulse - - Temperature - - Respiratory Rate - - Oxygen Saturation - - Inhaled Oxygen Concentration - - Weight - - Height 165.1 cm (5' 5) 04/18/2011 1607 EST Body Mass Index - - documented in this encounter Functional Status Cognitive Status Response Date of Assessment Because of a physical, mental, or emotional condition, do Ye s 02/16/2011 you have serious difficulty concentrating, remembering, or making decisions? (5 years old or older) documented as of this encounter Discharge Disposition Disposition Code Departure Means Destination Auto Discharge documented in this encounter Progress Notes Tisha Lynch CNM - 04/18/2011 1636 EST S: Renetta is here for IUD insertion. She had intercourse once and used condom. She was recently treated for a yeast infection which has mostly resolved. IUD Insertion Procedure Note Pre-operative Diagnosis: 12 weeks Post-operative Diagnosis: same Indications: undesired fertility Procedure Details Urine test was done today and result was negative. The risks (including infection, bleeding, pain, and uterine perforation) and benefits of the procedure were explained to the patient and Written informed consent was obtained. Cervix cleansed with Betadine. Uterus sounded to 8 cm. IUD inserted without difficulty. String visible and trimmed. Patient tolerated procedure well. IUD Information: Mirena, Lot # [id number], Expiration date 11/2013. Condition: Stable Complications: None Plan: The patient was advised to call for any fever or for prolonged or severe pain or bleeding. She was advised to use OTC ibuprofen as needed for mild to moderate pain. RTO in 6 weeks for IUD check. documented in this encounter Miscellaneous Notes Scanned Note-Null - Tool And Cutter Grinder, Scan - 04/19/2011 0900 EST documented in this encounter Plan of Treatment Not on filedocumented as of this encounter Visit Diagnoses Diagnosis Encounter for IUD insertion - Primary Encounter for insertion of intrauterine contraceptive device documented in this encounter Care Teams Utility Tender Carding Relationship Specialty Start Date End Date Carmela Sanchez MD PCP - General 07/30/08 08/13/[address] [place] [phone] documented as of this encounter
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
--- OUTSIDE RECORDS SUMMARY | 2021-10-28 15:11 | XMS_ITS | Encounter Summary ---
:[address] [facility] Address [address] [place] [address] Care Team Providers Name Role Phone Carmela Sanchez MD Primary Care Provider Reason for Visit Reason Comments Routine Visit Encounter Details Date Type Department Care Team Description 01/26/2011 Routine [facility] David Ross GA : [id number] Women's Services - [address] [address] [address], [place] [phone] (Wo rk) Social History Tobacco Use Types [...] Sign Reading Time Taken Comments Blood Pressure 96/60 01/26/2011 0927 EDT Pulse - - Temperature - - Respiratory Rate - - Oxygen Saturation - - Inhaled Oxygen Concentration - - Weight 91.4 kg (201 lb 6.4 oz) 01/26/2011 0927 EDT Height - - Body Mass Index 33.51 01/04/2011 1107 EDT documented in this encounter Progress Notes David Ross CNM - 01/26/2011 1238 EDT S: Has been feeling increased vaginal pressure and uterine tightening last 2 days, uncomfortable butno regular contractions. Some nausea and episodes of diarrhea persist. No fluid leak or show. Baby active. Saw GI MD since last visit who said diarrhea c/w IBS and she could try Imodium occasionally tohelp. Will have to re-evaluate . Med for GERD changed to Nexium and this has improved sx. States had flu vaccine in right deltoid at last visit. O: BP 96/60 Wt 91.354 kg (201 lb 6.4 oz) LMP 05/22/2010 +GBS CX no change from exam last wk CT/GC test done Had reported decreased FM on 01/10 and had NST - reactive with a variable. NENA check = 22.9 A: at 38w 1d + GBS Normal discomforts of term IBS and GERD P: Try Imodium prn if recurrent diarrhea Continue Nexium for GERD Discussed GBS and need for antibx in labor Reviewed when to call for labor or SROM Await GC/CT test results RTO 1 wk Vera San LPN - 01/26/2011 1233 EDT 01/26/11- Flu vaccine offered to pt today at her OB visit but pt states she already received her fluvaccine at her last appt on 01/16/11. That appt was with a resident. No order or documentation foundthat vaccine was given. Sommer Silveira supervisor brooder farm francoise.Alex Granger LPN documented in this encounter Plan of Treatment Not on filedocumented as of this encounter Procedures Procedure Name Priority Date/Time Associated Diagnosis Comme nts CHLAMYDIA/N. Routine 01/26/2011 11:52 Screening Results for this GONORRHOEAE EDT examination for procedure ar e in AMPLIFIED RNA venereal disease the result s section. documented in this encounter Results CHLAMYDIA/GC AMPLIFIED (01/26/2011 11:52 EDT) Specimen End[facility] Description LAB Chlamydia Result No Chlamydia [facility] trachomatis DNA LAB detected by optician mediated amplification. GC Result No Neisseria [facility] gonorrhoeae DNA LAB detected by optician mediated amplification. Specimen Other (qualifier value) Performing Organization Address City/State/ZIP Code Phon e Number [facility] [address] [place] [address] SERVICES [facility] [address] [place] [address] documented in this encounter Visit Diagnoses Diagnosis Screening examination for venereal disea se - Primary documented in this encounter Care Teams Foundry Superintendant Relationship Specialty Start Date End Date Carmela Sanchez MD PCP - General 07/30/08 08/13/[address] [place] [phone] documented as of this encounter
--- OUTSIDE RECORDS SUMMARY | 2021-10-28 15:11 | XMS_ITS | Encounter Summary ---
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 results section. COMPLETE BLOOD COUNT STAT 05/13/2011 18:16 Res ults for this EST procedure are i n the results section. PHENYTOIN STAT 05/13/2011 18:16 Results for this EST procedure are i n the results section. TSH STAT 05/13/2011 18:16 Results for this EST procedure are i n the results section. ACETAMINOPHEN Routine 05/13/2011 18:16 Results fo r this EST procedure are i n the results section. SALICYLATE Routine 05/13/2011 18:16 Results for this EST procedure are i n the results section. COMPREHENSIVE STAT 05/13/2011 18:16 Results fo r this METABOLIC PANEL (CMP) EST proced ure are in the results section. documented in this encounter Results ECG REPORT - SCANNED (05/20/2011 5:00 EST) Specimen Narrative This result has an attachment that is no t available. Transcriptions Manager Compliance, Scan - 05/20/2011 5:00 ES T (ABNORMAL) HEMAGRAM AND DIFFERENTIAL (05/14/2011 5:29 EST) Pathologist Sig nature WBC 5.83 4.0 - 12.4 K/cmm [facility] RBC 4.54 3.86 - 5.04 M/cmm [facility] Hemoglobin 14.3 11.6 - 15.2 gm/dl [facility] HCT 41.8 34.9 - 44.4 % [facility] MCV 92 81 - 98 fl [facility] MCH 31.5 26.7 - 33.3 pg [facility] MCHC 34.2 32.1 - 35.9 gm/dl [facility] PLT 218 141 - 320 K/cmm [facility] RDW-CV 14.8 (H) 11.7 - 14.6 % [facility] Neutrophils 47.2 45.5 - 79.7 % [facility] Lymphocytes 41.4 15.0 - 46.8 % [facility] Monocytes 7.6 1.8 - 12.0 % [facility] Eosinophils 3.0 0.6 - 6.9 % [facility] Basophils 0.8 0.2 - 1.4 % [facility] ABS Neutrophils 2.76 2.20 - 8.85 K/cmm [facility] ABS Lymphs 2.41 1.09 - 3.30 K/cmm [facility] ABS Monocytes 0.44 0.1 - 0.8 K/cmm [facility] ABS Eosinophils 0.17 0.03 - 0.61 K/cmm [facility] ABS Basophils 0.05 0.01 - 0.11 K/cmm [facility] Type of Diff: Automated [facility] Specimen Blood specimen (specimen) Performing Organization Address [facility]/ZIP Code Phon e Number [facility] [address] [place] [address] SERVICES [facility] [address] [place] [address] BILIRUBIN, TOTAL (05/14/2011 5:29 EST) Pathologist Sig nature Bilirubin, Total <0.5 0.2 - 1.3 mg/dl [facility] Specimen Blood specimen (specimen) Performing Organization Address [facility] Phon e Number [facility] [address] [place] [address] SERVICES [facility] [address] [place] [address] (ABNORMAL) ALKALINE PHOSPHATASE (05/14/2011 5:29 EST) Pathologist Sig nature Total Alkaline 156 (H) 38 - 126 U/L [facility] Phosphatase Specimen Blood specimen (specimen) Performing Organization Address [facility] Phon e Number [facility] [address] [place] [address] SERVICES [facility] [address] [place] [address] (ABNORMAL) AST (05/14/2011 5:29 EST) Pathologist Sig nature AST 53 (H) 15 - 46 U/L [facility] Specimen Blood specimen (specimen) Performing Organization Address [facility]/ZIP [facility] Phon e Number [facility] [address] [place] [address] SERVICES [facility] [address] [place] [address] (ABNORMAL) ALT (05/14/2011 5:29 EST) Pathologist Sig nature ALT 153 (H) 9 - 52 U/L [facility] Specimen Blood specimen (specimen) Performing Organization Address [facility] Phon e Number [facility] [address] [place] [address] SERVICES [facility] [address] [place] [address] CREATININE (05/14/2011 5:29 EST) Pathologist Sig nature Creatinine 0.59 0.52 - 1.04 mg/dl [facility] GFR, Calculated >60 >60 ml/min/1.73m2 [facility] Specimen Blood specimen (specimen) Performing Organization Address [facility] Phon e Number [facility] [address] [place] [address] SERVICES [facility] [address] [place] [address] (ABNORMAL) BUN (05/14/2011 5:29 EST) Pathologist Sig nature BUN 8 (L) 10 - 26 mg/dl [facility] Specimen Blood specimen (specimen) Performing Organization Address [facility] Phon e Number [facility] [address] [place] [address] SERVICES [facility] [address] [place] [address] ELECTROLYTES (05/14/2011 5:29 EST) Pathologist Sig nature Sodium 139 136 - 145 mEq/L [facility] Potassium 4.4 3.5 - 5.0 mEq/L [facility] Chloride 105 96 - 110 mEq/L [facility] CO2 27 24 - 32 mEq/L [facility] Specimen Blood specimen (specimen) Performing Organization Address [facility] Phon e Number [facility] [address] [place] [address] SERVICES [facility] [address] [place] [address] (ABNORMAL) PHENYTOIN (05/14/2011 5:29 EST) Pathologist Sig nature Phenytoin 20.7 (H) 10.0 - 20.0 ug/ml [facility] Specimen Blood specimen (specimen) Performing Organization Address [facility] Phon e Number [facility] [address] [place] [address] SERVICES [facility] [address] [place] [address] DRUG SCREEN 6 (05/14/2011 0:25 EST) Amphetamine Screen, Negative screen. [facility] Comment: LAB Confirmation testing available upon request. Suitable for medical purposes only. Will not detect all drugs within class. Cutoff = 1000 ng/ml Barbiturate Screen, Negative screen. [facility] Comment: LAB Confirmation testing available upon request. Suitable for medical purposes only. Will not detect all drugs within class. Cutoff = 300 ng/ml Benzodiazepine Screen, Negative screen. [facility] Comment: LAB Confirmation testing available upon request. Suitable for medical purposes only. Will not detect all drugs within class. Assay less sensitive to Lorazepam and metabolites. Cutoff = 200 ng/ml Cannabinoid Scrn, Ur Negative screen. [facility] Comment: LAB Confirmation testing available upon request. Suitable for medical purposes only. Will not detect all drugs within class. Cutoff = 50 ng/ml Cocaine Metabolites, Negative screen. [facility] Ur Comment: LAB Confirmation testing available upon request. Suitable for medical purposes only. Will not detect all drugs within class. Cutoff = 300 ng/ml Opiate Scrn, Ur Negative screen. [facility] Comment: LAB Confirmation testing available upon request. Suitable for medical purposes only. Will not detect all drugs within class. Cutoff = 300 ng/ml Assay less sensitive to oxycodone and metabolites. Assay does not detect methadone. Specimen Urine (substance) - Urine Performing Organization Address [facility] Phon e Number [facility] [address] [place] [address] SERVICES [facility] [address] [place] [address] INPATIENT ADD-ON (05/13/2011 22:00 EST) Pathologist Sig nature Tests to be added TYLENOL AND ASA LEVELS Number for problems ED Accession number [id number] Specimen SALICYLATE (05/13/2011 18:16 EST) Pathologist Sig nature Salicylate <1.0 mg/dl [facility] Comment: Negative = <2 mg/dl Therapeutic = <20 mg/dl Toxic = >30 mg/dl Specimen Performing Organization Address [facility] Phon e Number [facility] [address] [place] [address] SERVICES [facility] [address] [place] [address] ACETAMINOPHEN (05/13/2011 18:16 EST) Pathologist Sig nature Acetaminophen <10.0 ug/ml [facility] Comment: Therapeutic range: ??10 - 30 ug/mL Possible toxicity: ??150 - 200 ug/mL Probable toxicity: ??>200 ug/mL Specimen Performing Organization Address [facility] Phon e Number [facility] [address] [place] [address] SERVICES [facility] [address] [place] [address] TSH (05/13/2011 18:16 EST) Pathologist Sig nature TSH 0.98 0.35 - 5.00 uIU/ml [facility] Specimen Blood specimen (specimen) Performing Organization Address City/State/[facility] Code Phon e Number [facility] [address] [place] [address] SERVICES [facility] [address] [place] [address] (ABNORMAL) COMPREHENSIVE METABOLIC PANEL (CMP) (05/13/2011 18:16 EST) Pathologist Sig nature Potassium 4.2 3.5 - 5.0 mEq/L [facility] Sodium 140 136 - 145 mEq/L [facility] Chloride 102 96 - 110 mEq/L [facility] CO2 29 24 - 32 mEq/L [facility] Total Alkaline 179 (H) 38 - 126 U/L [facility] Phosphatase Bilirubin, Total <0.5 0.2 - 1.3 mg/dl [facility] AST 56 (H) 15 - 46 U/L [facility] ALT 172 (H) 9 - 52 U/L [facility] Albumin 3.9 3.4 - 4.9 g/dl [facility] Total Protein 6.8 6.5 - 8.3 g/dl [facility] Creatinine 0.50 (L) 0.52 - 1.04 [facility] mg/dl GFR, Calculated >60 >60 [facility] ml/min/1.73m2 BUN 8 (L) 10 - 26 mg/dl [facility] Calcium 8.8 8.5 - 10.5 [facility] mg/dl Calculated Calcium 9.3 8.5 - 10.5 [facility] mg/dl Glucose, Serum 106 (H) 70 - 100 mg/dl [facility] Fasting? Unknown [facility] Specimen Blood specimen (specimen) Performing Organization Address City/State/ZIP Code Phon e Number [facility] [address] [place] [phone] SERVICES [facility] [address] [place] [address] HEMAGRAM (05/13/2011 18:16 EST) Pathologist Sig nature WBC 6.00 4.0 - 12.4 K/cmm [facility] RBC 4.71 3.86 - 5.04 M/cmm [facility] Hemoglobin 14.8 11.6 - 15.2 gm/dl [facility] HCT 43.0 34.9 - 44.4 % [facility] MCV 91 81 - 98 fl [facility] MCH 31.5 26.7 - 33.3 pg [facility] MCHC 34.5 32.1 - 35.9 gm/dl [facility] PLT 232 141 - 320 K/cmm [facility] RDW-CV 14.5 11.7 - 14.6 % [facility] Specimen Blood specimen (specimen) Performing Organization Address City/[facility]/ZIP Code Phon e Number [facility] [address] [place] [address] SERVICES [facility] [address] [place] [address] (ABNORMAL) PHENYTOIN (05/13/2011 18:16 EST) Pathologist Sig nature Phenytoin 26.1 (HH)Comment: 10.0 - 20.0 [facility] Sample retested, ug/ml result confirmed Specimen Blood specimen (specimen) Performing Organization Address City/[facility]/ZIP Code Phon e Number [facility] [address] [place] [address] SERVICES [facility] [address] [place] [address] documented in this encounter Visit Diagnoses Diagnosis Phenytoin toxicity Poisoning by hydantoin derivatives Transaminitis Nonspecific elevation of levels of trans aminase or lactic acid dehydrogenase (LDH) Seizure (HCC-CMS) (HCC) Other convulsions Depression Depressive disorder, not elsewhere class ified Elevated LFTs Other abnormal blood chemistry documented in this encounter Administered Medications Inactive Administered Medications - up to 3 most recent administrations Medication Order MAR Action Action Date Dose Rate Site ibuprofen (MOTRIN) tablet 400 mg Given 05/14/2011 0:55 EST 400 mg 400 mg, oral, EVERY 4 HOURS PRN, Starting on 05/14/11 at 0055, Until 05/14/11 at 2030, Pain, STAT pantoprazole (PROTONIX) tablet 40 mg Given 05/14/2011 11:42 EST 40 mg 40 mg, oral, DAILY, First dose on 05/14/11 at 0900, Until Discontinued, STAT sodium chloride 0.9 % (NS) infusion New Bag 05/14/2011 11:42 EST 150 mL/hr at 150 mL/hr, intravenous, CONTINUOUS, Starting on 05/14/11 at 0115, Until 05/14/11 at 2030, Routine New Bag 05/14/2011 5:32 EST 150 mL/hr New Bag 05/13/2011 22:00 EST 150 mL/hr documented in this encounter Discontinued Medications Medication Sig Discontinue Reason Start Date End Date albuterol (PROVENTIL, Inhale 1 Puff as 02/09/2011 VENTOLIN) 90 directed every 4 mcg/Actuation inhaler hours as needed for Wheezing. ibuprofen (MOTRIN) 400 mg Take 1 Tab by mouth 02/19/20 11 05/13/2011 tablet every 4 hours as needed for Pain. acetaminophen (TYLENOL) Take 1,000 mg by 05/14/2011 500 mg tablet mouth every 6 hours. phenytoin (DILANTIN) 50 Take 1 Tab by mouth 04/13/2011 05/14/2011 mg chewable 3 times daily. tabletIndications: Seizure (HCC-CMS) ([facility]) phenytoin (DILANTIN) 100 Take 3 Caps by 04/04/2011 0 05/14/2011 mg ER capsuleIndications: mouth daily. Seizure (HCC-CMS) (HCC) phenytoin (DILANTIN) 100 Take 1 Cap by mouth 2 05/14/2011 mg ER capsule 3 times daily for 30 days. documented as of this encounter Active and Recently Administered Medications Times are shown in EST. Scheduled Medication Order 05/12/2011 05/13/2011 05/14/2011 pantoprazole (PROTONIX) tablet 40 mg (CANCELED) 1142 (Given - Provider: Daisy Hopkins RN) 40 mg, Oral, DAILY, First dose on 05/14/11 at 0900, Until Disc ontinued Continuous Medication Order 05/12/2011 05/13/2011 05/14/2011 sodium chloride 0.9 % (NS) infusion (CANCELED) 2200 (New Bag - Provider: Nicci Marroquin) 0532 (New Bag - Provider: Mackenzie Oreilly) 1142 (New Bag - Provider: Daisy Hopkins, KELSI) at 150 mL/hr, Intravenous, CONTINUOUS, S tarting 05/14/11 at 0115, Until 05/14/11 at 2030 PRN Medication Order 05/12/2011 05/13/2011 05/14/2011 docusate sodium (COLACE) capsule 100 mg 100 mg, Oral, 2 TIMES DAILY PRN, Startin g 05/14/11 at 0141, Until 05/14/11 at 2030, Constipation ibuprofen (MOTRIN) tablet 400 mg (CANCELED) 0055 (Given - Provider: Nicci Marroquin) 400 mg, Oral, EVERY 4 HOURS PRN, Startin g 05/14/11 at 0055, Until 05/14/11 at 2030, Pain documented in this encounter Orders Medications Ordered That Might Not Have Count Last Ord ered Date First Ordered Date Been Administered albuterol (PROVENTIL HFA, VENTOLIN HFA) 1 05/14/19 12 inhaler 1-2 Puff docusate sodium (COLACE) capsule 100 mg 1 05/14/19 12 promethazine (PHENERGAN) tablet 12.5 mg 1 05/14/19 12 EKG Orders Without Results Count Last Ordered Date Fir st Ordered Date EKG 12-LEAD 1 05/13/2011 Nursing Count Last Ordered Date First Ordered Date LOW RISK DVT PATIENTS DO NOT REQUIRE 1 05/14/2011 PHARMACEUTICAL INTERVENTION INSERT PERIPHERAL IV 1 05/13/2011 Admission Count Last Ordered Date First Ordered Date ADMIT TO INPATIENT 1 05/14/2011 ADMITTING CONDITION 1 05/14/2011 TEACHING SERVICE 1 05/14/2011 ADMIT TO OBSERVATION 1 05/13/2011 Discharge Count Last Ordered Date First Ordered Date DISCHARGE PATIENT 1 05/14/2011 documented in this encounter Care Teams Mainspring Former Arbor [employer] Relationship Specialty Start Date End Date Carmela Sanchez MD PCP - General 07/30/08 08/13/[address] [place] [address] [phone] documented as of this encounter
--- OUTSIDE RECORDS SUMMARY | 2021-10-28 15:11 | XMS_ITS | Encounter Summary ---
:1990 Author Organization [facility] Address [address] [place] [address] Care Team Providers Name Role Phone Carmela Sanchez MD Primary Care Provider Reason for Visit Reason Onset Date Comments Vaginal Bleeding 05/04/2011 Encounter Details Date Type Department Care Team Description 05/04/2011 Telephone [facility] Carmela Sharma MD Vaginal Bleeding Medicine - [address] [address] [phone] (Wo rk) Social History Tobacco Use Types [...] Telephone Encounter - Carmela Sanchez MD - 05/05/2011 1016 EST Noted. Agree with plan. elephone Encounter - Gabrielle Leonard LPN - 05/04/2011 1756 EST Spoke with patient she states she had a Mirena IUD places 1-2 weeks ago, and had some spotting at the time which has since stopped. She had intercourse on Sunday and developed and uncomfortable feeling in her abdomen and has been bleeding heavily since. Bleeding bright red blood which gushes at time and she states there are times when she is soaking through pads and or tampons in less than a couple of hours. Patient states she remains in discomfort and is concerned. Patient requesting to be evaluated at the ER. Protocol # 547 Pain level > Patient Education Topic: ER Method: Verbal Taught to: Patient Barriers: None Outcomes: verbalized understanding Signature:ABNER Cisneros was supervised by Ester Mohamud MD who was present and immediately available in the office suite. Gabrielle Leonard LPN 05/04/2011 17:58 Patient had cancelled her appointment here in the office today. elephone Encounter - Katiana Tucker - 05/04/2011 1748 EST Mirena placed 2 weeks ago. Had intercourse on Sunday night and started cramping and bleeding. documented in this encounter Plan of Treatment Not on filedocumented as of this encounter Visit Diagnoses Not on filedocumented in this encounter Care Teams Solution Manager Relationship Specialty Start Date End Date Carmela Sanchez MD PCP - General 07/30/08 08/13/[address] [place] [address] [phone] documented as of this encounter
--- OUTSIDE RECORDS SUMMARY | 2021-10-28 15:11 | XMS_ITS | Encounter Summary ---
:1990 Author Organization [facility] Address [address] [place] [address] Care Team Providers Name Role Phone Carmela Sanchez MD Primary Care Provider Reason for Visit Reason Comments Non-stress Test Encounter Details Date Type Department Care Team Description 01/10/2011 Nurse Only [facility] Unknown, Corbin melendez MD Decreased Obstetrics & Midwifery Nurse, [facility] management of mother, [address] [facility] [place] [address] Social History Tobacco Use Types Packs/Day Years [...] 13:04 EST documented as of this encounter Progress Notes Merlin Shi MD - 01/10/2011 1311 EDT NST Report Baseline Heart Rate: 130 Accelerations: present Movement: present Decelerations: Present (variable) Contractions: absent Interpretation: reactive We will get a fluid check due to the variable and decreased movements. Merlin Shi MD 01/10/2011 13:10 documented in this encounter Miscellaneous Notes Scanned Note-Null - Kelvin, [employer] Boring Machine Operator - 01/11/2011 0959 EDT documented in this encounter Plan of Treatment Not on filedocumented as of this encounter Visit Diagnoses Diagnosis Decreased movements, affecting man agement of mother, antepartum documented in this encounter Care Teams Senior Medical Technologist Relationship Specialty Start Date End Date Carmela Sanchez MD PCP - General 07/30/08 08/13/[address] [place] [phone] documented as of this encounter
--- OUTSIDE RECORDS SUMMARY | 2021-10-28 15:11 | XMS_ITS | Encounter Summary ---
:1990 Author Organization [facility] Address [address] [place] [address] Care Team Providers Name Role Phone Carmela Sanchez MD Primary Care Provider Encounter Details Date Type Department Care Team Description 04/05/2011 Phlebotomy Only [facility] - Assistant Professor Surgical TechnologyDennis ([facility]) [facility] [address] [place] [address] Social History Tobacco Use Types Packs/Day Years [...] Date/Time Associated Diagnosis Comme nts PHENYTOIN Routine 04/05/2011 17:02 EST Seizure ([facility]) Re sults for this procedure are i n the results section . documented in this encounter Results (ABNORMAL) PHENYTOIN (04/05/2011 17:02 EST) Pathologist Sig nature Phenytoin 6.4 (L) 10.0 - 20.0 ug/ml [facility] Specimen Blood specimen (specimen) Performing Organization Address City/State/ZIP Code Phon e Number [facility] [address] [place] [address] SERVICES [facility] [address] [place] [address] documented in this encounter Visit Diagnoses Diagnosis Seizure (HCC-CMS) (HCC) Other convulsions documented in this encounter Care Teams Oracle Application Consultant Relationship Specialty Start Date End Date Carmela Sanchez MD PCP - General 07/30/08 08/13/[address] [place] [phone] documented as of this encounter
--- OUTSIDE RECORDS SUMMARY | 2021-10-28 15:11 | XMS_ITS | Encounter Summary ---
:1990 Author Organization [facility] Address [address] [place] [address] Care Team Providers Name Role Phone Carmela Sanchez MD Primary Care Provider Reason for Visit Reason Onset Date Comments Medication Management 03/29/2011 [facility] needs local pr ovider to sign off on medication Encounter Details Date Type Department Care Team Description 03/29/2011 Telephone [facility] Carmela Sanchez, [facility] Management Family Medicine - MD ([facility] needs local [address] provider to sign off on [address] [place] [address] medication) [place] [address] [phone] (Wo rk) Social History Tobacco Use Types [...] phenytoin (DILANTIN) 100 Take 3 Caps by 90 Cap 2 011 05/14/2011 mg ER capsuleIndications: mouth daily. Seizure (HCC-CMS) (HCC) documented in this encounter Miscellaneous Notes Telephone Encounter - Carmela Sanchez MD - 04/05/2011 1230 EST Noted. Agree with plan. elephone Encounter - Jessie Goodrich LPN - 04/05/2011 0911 EST Patient notified of rx and she just received notification that she has an appointment with neuro in FEB elephone Encounter - Carmela Sanchez MD - 04/04/2011 1727 EST Rx has been done. Has she gotten a Neuro appointment yet? elephone Encounter - eJssie Goodrich LPN - 03/30/2011 1528 EST The medication was for dilantin 100 mg elephone Encounter - Jessie Goodrich LPN - 03/30/2011 1443 EST Left a message for Trang at [facility] to call back in regards Renetta's medication/cr elephone Encounter - Monica Chen - 03/29/2011 1559 EST Trang @ [facility] calling: - Dr. Hendrickson in [place] had rx'd Dilaudid for this patient 1) wondering if Dr. Sanchez would be willing to sign the order for this medication going forward, as it would be easier to have a local doctor following this. - next refill of Dilaudid would not be needed for 2 months, but [facility] paperwork needs a local providerto sign for this medication - that would be faxed this week. Need to have a provider listed to send it to. 2) would like to make sure that the patient is also taking Prozac, which is rx'd through our office. Just FYI as there is sometimes an interaction between these medications. Please call Trang to confirm that Dr. Sanchez can sign for this medication, and to acknowledge possible interaction. documented in this encounter Plan of Treatment Not on filedocumented as of this encounter Visit Diagnoses Diagnosis Seizure (HCC-CMS) (HCC) - Primary Other convulsions documented in this encounter Discontinued Medications Medication Sig Discontinue Reason Start Date End Date phenytoin (DILANTIN) 100 Take 100 mg by Reorder 1 06/05/2010 mg ER capsule mouth 3 times daily. documented as of this encounter Care Teams Account Planner Relationship Specialty Start Date End Date Carmela Sanchez MD PCP - General 07/30/08 08/13/[address] [place] [phone] documented as of this encounter
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
--- OUTSIDE RECORDS SUMMARY | 2021-10-28 15:11 | XMS_ITS | Encounter Summary ---
:1990 Author Organization [facility] Address [address] [place] [address] Care Team Providers Name Role Phone Carmela Sanchez MD Primary Care Provider Reason for Visit Reason Onset Date Comments Post- Care 02/20/2011 Encounter Details Date Type Department Care Team Description 02/20/2011 Telephone [facility] Eloisa Tuttle APRN P ost- Care Women's Services - [id number] [place] [address], [place] [phone] (Wo rk) Social History Tobacco [...] this encounter Miscellaneous Notes Telephone Encounter - Eloisa Tuttle CNM - 02/20/2011 762 EST 4 days post . [address] on [address]. Baby on antibiotics until this Sunday. Called answeringservice with complaints of dizziness and unable to focus. Was planning to go to ER She reports uncomplicated induction of labor for post term with the only complication of the baby's transition and now antibiotic treatment. Lochia small. Bowels and bladder functioning. Meds as per above. Has not taken her temperature but denies fever or chills. Feels flushed in the face. Has had panic and anxiety episodes in the past but this seems different. Sleeping intermittently when baby sleeping. Eating throughout the day. Wonders if this could just be the stress of all that is going on. When asked what the all is she explains the extended admission and having to be away from the baby. Nursing staff reports that Renetta and her boyfriend had been arguing loudly enough to initiate complaints by other patients just prior to this episode. I questioned her about this while he was out of the room and she reports that her gets anxious and loud when he is frustrated. He was unable to soothe or wrap the baby and they had words about this. O: alert, flushed, skin warm and dry, cooperative BP 128/76 pulse 66 R 22 not febrile to touch Breast full but not engorged. Abdomen soft non tender fundus firm A: possible stress reaction. Currently not overt or symptomatic evidence of infection or focal symptoms P: advised to rest over next hour and see if she improves. Advised against ER visit at this moment. To call with any additional symptoms. Call for two week visit this week. documented in this encounter Plan of Treatment Not on filedocumented as of this encounter Visit Diagnoses Not on filedocumented in this encounter Care Teams Felt Finisher Relationship Specialty Start Date End Date Carmela Sanchez MD PCP - General 07/30/08 08/13/[address] [place] [phone] documented as of this encounter
--- OUTSIDE RECORDS SUMMARY | 2021-10-28 15:11 | XMS_ITS | Encounter Summary ---
:1990 Author Organization [facility] Address [address] [place] [address] Care Team Providers Name Role Phone Carmela Sanchez MD Primary Care Provider Reason for Visit Reason Comments Post- Care 3 wk PPV Encounter Details Date Type Department Care Team Description 03/09/2011 Office Visit [facility] Tisha Lynch L actation disorder, Women's Services - [facility] condition Main [address] (Primary Dx) [address] [phone] [place], [address] [place] [address] (Wo rk) Social History Tobacco [...] Reading Time Taken Comments Blood Pressure 114/70 03/09/2011 1107 EST Pulse - - Temperature - - [...] encounter Progress Notes Tisha Lynch CNM - 03/09/2011 1236 EST Kiera is here for appt @ 3 weeks. She started taking Prozac last Sunday and is feeling muchbetter. She was getting very irritated and angry with baby when he would cry, not able to problem solve. Crying a lot. Since starting she has begun to feel better, able to cope when he cries to figure out why. She has been on prozac in the past for depression. She lives with boyfriend in their own apt. Kiera states that she usually has to ask him to help her with baby that he doesn't help without asking, but that he isn't getting annoyed by it anymore. Kiera states that they baby got thrush and she got yeast on her nipples, which is painful. Thrush was treated with nystatin and she thinks it is gone. So she stopped nursing and started pumping mostly, but that she doesn't make enough milk so she is also giving formula. She pumps about 3 oz and he takes 5 oz. She occasionally puts him to breast with a shield but she experiences pain and itching. She is using the APNO ointment but not regularly. He is sleeping about 4 hours at a time at night. She is fatigued but generally coping better than last week. Kiera states that her bleeding is off and on - period like at times or minimal. Her stitches are stillitchy. A/P 3 weeks S/P depression Pumping/nursing/formula feeding I discussed use of gentian caitlin and gave her the handout. Discussed some normal physiology. Offered her LC support and gave our clinic number. I spent 30 min with patient, 100% in counseling and coordination of care. Vera Grayson LPN - 03/09/2011 1138 EST 03/09/11- Pertussis info given to pt. -DM documented in this encounter Plan of Treatment Not on filedocumented as of this encounter Visit Diagnoses Diagnosis disorder, condition - Primary Unspecified disorder of , postp artum condition or complication documented in this encounter Care Teams Public Policy Mediator Relationship Specialty Start Date End Date Carmela Sanchez MD PCP - General 07/30/08 08/13/11 [address] [place] [phone] documented as of this encounter
--- OUTSIDE RECORDS SUMMARY | 2021-10-28 15:11 | XMS_ITS | Encounter Summary ---
:1990 Author Organization [facility] Address [address] [place] [address] Care Team Providers Name Role Phone Carmela Sanchez MD Primary Care Provider Reason for Visit Reason Onset Date Comments Decreased Movement 01/31/2011 Encounter Details Date Type Department Care Team Description 01/31/[address] [facility] Eloisa Tuttle APRN D ecreased Women's Services - [address] [address] [place], [place] [address] (Wo rk) Social History Tobacco [...] Telephone Encounter - Eloisa Tuttle CNM - 01/31/2011 1636 EDT Calling to report that she has not felt the baby move today. Is eating, forcing fluids, and trying to get the baby to move without success. Wonders if stress is affecting her? Advised to come to birthing center now. documented in this encounter Plan of Treatment Not on filedocumented as of this encounter Visit Diagnoses Not on filedocumented in this encounter Care Teams Cognos Report Developer Relationship Specialty Start Date End Date Carmela Sanchez MD PCP - General 07/30/08 08/13/[address] [place] [phone] documented as of this encounter
--- OUTSIDE RECORDS SUMMARY | 2021-10-28 15:11 | XMS_ITS | Encounter Summary ---
:1990 Author Organization [facility] Address [address] [place] [address] Care Team Providers Name Role Phone Carmela Sanchez MD Primary Care Provider Reason for Visit Reason Onset Date Comments Medications Refill 01/05/2011 Encounter Details Date Type Department Care Team Description 01/05/2011 Refill [facility] RN [address] [place] [address] Social History Tobacco Use [...] 13:04 EST documented as of this encounter Ordered Prescriptions Prescription Sig Dispensed Refills Start Date End Date pantoprazole (PROTONIX) 40 Take 1 Tab by mouth 90 Tab 3 01/05/2011 09/25/2011 mg tablet daily. documented in this encounter Miscellaneous Notes Telephone Encounter - Sunitha Garcia, RN - 01/05/2011 0817 EDT Per insurance coverage, nexium needed to be changed to pantoprazole 40mg daily.Per this is a classB drug & will be safe for her as she is . A message was left for the patient with this information documented in this encounter Plan of Treatment Not on filedocumented as of this encounter Visit Diagnoses Not on filedocumented in this encounter Discontinued Medications Medication Sig Discontinue Reason Start Date End Date esomeprazole (NEXIUM) 40 Take 1 Cap by 01/04/2011 mg capsule mouth daily. documented as of this encounter Care Teams Associate Programmer Relationship Specialty Start Date End Date Carmela Sanchez MD PCP - General 07/30/08 08/13/[address] [place] [phone] documented as of this encounter
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
--- OUTSIDE RECORDS SUMMARY | 2021-10-28 15:11 | XMS_ITS | Encounter Summary ---
:1990 Author Organization [facility] Address [address] [place] [id number] Care Team Providers Name Role Phone Carmela Sanchez MD Primary Care Provider Reason for Visit Reason Onset Date Comments Follow-up 03/22/2011 Encounter Details Date Type Department Care Team Description 03/22/2011 Telephone [facility] Carmela Sharma MD Follow-up Medicine - [address] [phone] (Wo rk) Social History Tobacco Use Types [...] this encounter Miscellaneous Notes Telephone Encounter - Katiana Tucker - 03/23/2011 1032 EST Spoke to patient she is coming in at 11:15 on 03/23/11 elephone Encounter - Carmela Sanchez MD - 03/22/2011 1216 EST Pt admitted in [place]. They will fax records. Had a full seizure - admitted and loaded with Dilantin. BP and labs normal. Is one month post-. Had a 2nd trimester seizure with normal work up. No pre-eclampsia. Will be discharged to home today. Will need follow up in 1-2 days, referral to Neuro and a Dilantin level in 1-2 weeks. documented in this encounter Plan of Treatment Not on filedocumented as of this encounter Visit Diagnoses Not on filedocumented in this encounter Care Teams Induction Heat Treater Relationship Specialty Start Date End Date Carmela Sanchez MD PCP - General 07/30/08 08/13/[address] [place] [phone] documented as of this encounter
--- OUTSIDE RECORDS SUMMARY | 2021-10-28 15:11 | XMS_ITS | Encounter Summary ---
:1990 Author Organization [facility] Address [address] [place] [address] Care Team Providers Name Role Phone Carmela Sanchez MD Primary Care Provider Reason for Visit Reason Comments Lymphadenopathy swollen glands x3 days.also soreness to left axillary lymph nodes.afebrile.denies sore t hroat or cough Encounter Details Date Type Department Care Team Description 04/07/2011 Hospital Encounter [facility] Trang Roy ymphadenopathy Urgent Care - Heaven Godfrey NP [address] [phone] (Wo rk) Social History Tobacco Use Types [...] Reading Time Taken Comments Blood Pressure 106/70 04/07/2011 1714 EST Pulse 72 04/07/2011 1714 EST Temperature 37 ??C (98.6 ??F) 04/07/2011 1714 EST Respiratory Rate 16 04/07/2011 1714 EST Oxygen Saturation - - Inhaled Oxygen [...] documented as of this encounter Discharge Instructions AttachmentsThe following attachments cannot be sent through Care Everywhere. SWOLLEN LYMPH NODES: AFTER YOUR VISIT (SAUDI ARABIAN)documented in this encounter Medications at Time of [...] Home documented in this encounter ED Notes Renetta Roy NP - 04/07/2011 6256 EST DOS: 04/07/2011 Chief Complaint Patient presents with ??? Lymphadenopathy swollen glands x3 days.also soreness to left axillary lymph nodes.afebrile.denies sore throat or cough The patient is a 21 y.o. female who presents today with Lymphadenopathy HPI Comments: 21 y.o. Female with lymph node swelling x 3 days of right anterior cervical chain (1 cm, movable) and left axilla tail of rodriguez (1 cm approx. And movable, tender). She had scratchy throat and felt like there was a lump in throat initially that is now resolved. She had been breastfeedingher until 3 weeks ago and treated breasts due to infant thrush with purple anti- yeast medication. She no longer has cracked sore nipples and breasts are not tender. Lymphadenopathy Associated symptoms include headaches (temporal bilateral, mild). Pertinent negatives include no fever, no photophobia, no diarrhea, no nausea, no vomiting, no ear pain, no sore throat, no neck pain and no cough. The history is provided by the patient (Boyfriend). Review of Systems Constitutional: Negative for fever, chills and diaphoresis. HENT: Negative for ear pain, sore throat, trouble swallowing, neck pain, dental problem and voice change. Eyes: Negative for photophobia. Respiratory: Negative for cough. Gastrointestinal: Negative for nausea, vomiting and diarrhea. Neurological: Positive for headaches (temporal bilateral, mild). No current facility-administered medications for this encounter. Current Outpatient Prescriptions Medication Sig Dispense Refill ??? phenytoin (DILANTIN) [...] (Sulfonamide Antibiotics) Anaphylaxis ??? Bee Pollens Anaphylaxis Past [...] Maternal Grandfather ??? Cancer Paternal Grandmother BP 106/70 Pulse 72 Temp(Src) 98.6 ??F (37 ??C) (Temporal) Resp 16 LMP 05/22/2010 ? Unknown Physical Exam Constitutional: She appears well-nourished. No distress. HENT: Right Ear: External ear normal. Left Ear: External ear normal. Mouth/Throat: Oropharynx is clear and moist. Dental condition excellent and no pain of teeth with palpation of all teeth using tongue depressor. Eyes: Pupils are equal, round, and reactive to light. Neck: Normal range of motion. Neck supple. Pulmonary/Chest: Boyfriend present during exam. Gentle palpation of both breasts and axilla, tail of rodriguez. There is no redness or tenderness of breast. Nipples not cracked. She has moderate tenderness of tail of rodriguez with movable lymph node approx. 1 cm. Musculoskeletal: No streaking and has FROM of left arm. Lymphadenopathy: She has no cervical adenopathy. Consult orders: None PCP: Carmela Sanchez MD No results found for this visit on 04/07/11. Radiology orders: None Procedures Course: A medical screening exam was performed. VSS H &: P limited and focused to presenting problem. PMH: New diagnosis of epilepsy and VNA visits patient and due to this problem. Differentials considered but not limited to: cyst, abscess, parotid gland Discussion: With movable, tender lymph nodes and no systemic signs, the lymphadenopathy is most likely due to a now resolved sore throat and candidiasis of breast. Both sore throat and breast issue have resolved and lymph nodes likely a response to healing. She is advised recheck by her PCP. Disposition: Discharged The patient's pain was managed to an adequate level weighing risk vs. benefit of further medications. [facility], the patient's pain was 4 on a zero to ten scale. Condition at departure from the [facility]: Good 1. Lymphadenopathy Dr. Khadar Perrin was available for consultation during my care of this patient. [facility] 04/08/2011 7:05 Rashida Velázquez, RN - 04/07/2011 1721 EST Pt was engorged 3 weeks ago. VNA nurse concerned it might be a breast infection. Rashida Velázquez RN - 04/07/2011 1717 EST Pt has a 7 week old baby boy . Pt is not nursing. Nia Milton - 04/07/2011 1714 EST Swollen lymph nodes on right side of neck and in left armpit. A VNA nurse who comes to her home mentioned she might have a breast infection as she recently finished . Pt asked to change into a gown. documented in this encounter Miscellaneous Notes Scanned Note-Null - Wash Crew Person, Scan - 04/13/2011 0815 EST documented in this encounter Plan of Treatment Not on filedocumented as of this encounter Visit Diagnoses Diagnosis Lymphadenopathy Enlargement of lymph nodes documented in this encounter Care Teams Retail Key Holder Relationship Specialty Start Date End Date Carmela Sanchez MD PCP - General 07/30/08 08/13/[address] [place] [phone] documented as of this encounter
--- OUTSIDE RECORDS SUMMARY | 2021-10-28 15:11 | XMS_ITS | Encounter Summary ---
:1990 Author Organization [facility] Address [address] [place] [address] Care Team Providers Name Role Phone Carmela Sanchez MD Primary Care Provider Encounter Details Date Type Department Care Team Description 05/01/2011 Phlebotomy Only [facility] Product Control And Logistics Analyst, [facility] re [facility]sm rehab - [facility] Outpatient ([facility]) [address], [place] [address] [phone] Social History Tobacco Use Types Packs/Day Years [...] Date/Time Associated Diagnosis Comme nts PHENYTOIN Routine 05/01/2011 14:55 EST Seizure disorder Res ults for this ([facility]) procedure are i n the results section . documented in this encounter Results PHENYTOIN (05/01/2011 14:55 EST) Pathologist Sig nature Phenytoin 18.7 10.0 - 20.0 ug/ml [facility] Specimen Blood specimen (specimen) Performing Organization Address City/State/ZIP Code Phon e Number [facility] [address] [place] [address] SERVICES [facility] [address] [place] [address] documented in this encounter Visit Diagnoses Diagnosis Seizure disorder (HCC-CMS) (HCC) Unspecified epilepsy without mention of intractable epilepsy documented in this encounter Care Teams Engine Buildup Mechanic Relationship Specialty Start Date End Date Carmela Sanchez MD PCP - General 07/30/08 08/13/[address] [place] [phone] documented as of this encounter
--- OUTSIDE RECORDS SUMMARY | 2021-10-28 15:11 | XMS_ITS | Encounter Summary ---
:1990 Author Organization [facility] Address [address] [place] [address] Care Team Providers Name Role Phone Carmela Sanchez MD Primary Care Provider Reason for Visit Reason Comments Routine Visit Encounter Details Date Type Department Care Team Description 01/16/2011 Routine [facility] Cindy Culp, [place]: 36w5d Obstetrics & Midwifery - MD [facility] [place] [address] [place] [address] Social History Tobacco Use Types Packs/Day [...] Sign Reading Time Taken Comments Blood Pressure 102/60 01/16/2011 1502 EDT Pulse - - Temperature - - Respiratory Rate - - Oxygen Saturation - - Inhaled Oxygen Concentration - - Weight 88.9 kg (196 lb) 01/16/2011 1502 EDT Height - - Body Mass Index 32.62 01/04/2011 1107 EDT documented in this encounter Progress Notes Mackenzie Rojas MD - 01/16/2011 1638 EDT 36-42 Weeks Subjective: Renetta Bradley is a 21 y.o. female at 36w5d here for visit. Patient reports: pelvic pressure, denies LOF or VB Contractions: [place] and Irregular movement: present Objective: Filed Vitals: 01/16/11 1502 BP: 102/60 Weight: 88.905 kg (196 lb) See flowsheet. SVE 1-2/3+ cm long/posterior/medium/-3 Assessment: 1. IUP at 36w5d: size equals dates 2 Additional assessment: none Plan: 1. Problem list reviewed and updated. Extrinsic asthma, unspecified Well controlled since quitting smoking in September, uses albuterol very rarely. Depression Discussed risks/benefits of starting antidepressant now to prevent depression. She feels like she is well supported and does not want to be on any medications in . Will monitor closely for worsening s/sx of depression. Seizure No seizures since 11/21. Supervision of normal first Discussed heat, tylenol, rest and baths for ongoing symptoms. Reassured about cervical exam and intermittent contractions. Discussed CNM vs MD delivery, patient prefers CNM's. Will schedule remainder of APV's with them. GBS obtained today. 2. Additional testing: none 3. Follow-up in 1 weeks Pt seen and d/w Dr. Emery Rojas MD 01/17/2011 15:35 MFMS Attending I saw the pt with the resident. I agree with the findings and plan of management. The pt had no further questions concerning her care plan. CINDY CULP MD documented in this encounter Miscellaneous Notes Assessment & Plan Note - Mackenzie Rojas MD - 01/16/2011 1542 EDTAssociated Problem(s): Supervision of normal first (Resolved 03/23/2011) Discussed heat, tylenol, rest and baths for ongoing symptoms. Reassured about cervical exam and intermittent contractions. Discussed CNM vs MD delivery, patient prefers CNM's. Will schedule remainder of APV's with them. GBS obtained today. Assessment & Plan Note - Mackenzie Rojas MD - 01/16/2011 1541 EDTAssociated Problem(s): Convulsions (HCC-CMS) (HCC) No seizures since 11/21. ssessment & Plan Note - Mackenzie Rojas MD - 01/16/2011 1539 EDTAssociated Problem(s): Depression Discussed risks/benefits of starting antidepressant now to prevent depression. She feels like she is well supported and does not want to be on any medications in . Will monitor closely for worsening s/sx of depression. ssessment & Plan Note - Mackenzie Rojas MD - 01/16/2011 1538 EDTAssociated Problem(s): Extrinsic asthma (Deleted) Well controlled since quitting smoking in September, uses albuterol very rarely. documented in this encounter Plan of Treatment Not on filedocumented as of this encounter Procedures Procedure Name Priority Date/Time Associated Diagnosis Comme nts GROUP B STREP PCR Routine 01/16/2011 15:08 Supervision of Resu lts for this EDT high-risk procedur e are in the results section. documented in this encounter Results GROUP B STREPTOCOCCUS MOLECULAR DETECTION (01/16/2011 15:08 EDT) Group B Streptococcus GROUP B BETA [facility] Detection STREPTOCOCCAL DNA LAB detected by PCR. Specimen Other (qualifier value) Performing Organization Address City/State/ZIP Code Phon e Number [facility] [address] [place] [address] SERVICES [facility] [address] [place] [address] documented in this encounter Visit Diagnoses Diagnosis Supervision of high-risk - Sonal darling Unspecified high-risk documented in this encounter Discontinued Medications Medication Sig Discontinue Reason Start Date End Date butalbital-acetaminophe Take 1-2 Tabs by Therapy completed 01/16/2011 n-caffeine (FIORICET, mouth every 4 hours ESGIC) 50-325-40 mg per as needed. tabletIndications: Indications: MIGRAINE migraine documented as of this encounter Care Teams Molecular Biology Professor Relationship Specialty Start Date End Date Carmela Sanchez MD PCP - General 07/30/08 08/13/[address] [place] [phone] documented as of this encounter
--- OUTSIDE RECORDS SUMMARY | 2021-10-28 15:11 | XMS_ITS | Encounter Summary ---
:1990 Author Organization [facility] Address [address] [place] [address] Care Team Providers Name Role Phone Carmela Sanchez MD Primary Care Provider Encounter Details Date Type Department Care Team Description 05/01/2011 Hospital Encounter [facility] [address] [place] [phone] [place] [address] Social History Tobacco Use Types Packs/Day [...] mcg/Actuation inhaler hours as needed for Wheezing. fluconazole (DIFLUCAN) Take 1 Tab by mouth 1 Tab 0 08/201105/04/2011 150 mg tabletIndications: daily. Vaginitis fluoxetine (PROZAC) 20 mg Take 1 Cap by mouth 30 Cap 5 1 05/11/2010 05/04/2011 capsuleIndications: daily. Depression ibuprofen (MOTRIN) 400 mg Take 1 Tab by mouth 30 Each 1 1 04/20/2010 05/13/2011 tablet every 4 hours as needed for Pain. miconazole (MONISTAT-7) 2 Apply twice daily to 1 Tube 0 04/13/2011 05/04/2011 % vaginal affected areas. creamIndications: Vaginitis pantoprazole (PROTONIX) Take 1 Tab by mouth [...] Disposition Code Departure Means Destination Auto Discharge Home documented in this encounter Plan of Treatment Not on filedocumented as of this encounter Visit Diagnoses Not on filedocumented in this encounter Care Teams Caption Writer Relationship Specialty Start Date End Date Camrela Sanchez MD PCP - General 07/30/08 08/13/[address] [place] [phone] documented as of this encounter
--- OUTSIDE RECORDS SUMMARY | 2021-10-28 15:11 | XMS_ITS | Encounter Summary ---
:1990 Author Organization [facility] Address [address] [place] [address] Care Team Providers Name Role Phone Carmela Sanchez MD Primary Care Provider Reason for Visit Reason Onset Date Comments Post- Care 02/26/2011 Encounter Details Date Type Department Care Team Description 02/26/2011 Telephone [facility] Eloisa Tuttle APRN P ost- Care Women's Services - [id number] [place] [address], [place] [phone] (Wo rk) Social History Tobacco [...] Telephone Encounter - Eloisa Tuttle CNM - 02/26/2011 0607 EST Called with concerns about bleeding and stitches Worried that bleeding is brown and mucousy rather than red. Reassured about the normal progress of lochia and discussed reportable symptoms. She denies fever or abdominal pain Perineum is sore. She is 9 days post and it has been more sore for three days. Advised to stay off her feet and seat, resume use of the peribottle, sitz baths BiD and call Sunday to be seen in the office. documented in this encounter Plan of Treatment Not on filedocumented as of this encounter Visit Diagnoses Not on filedocumented in this encounter Care Teams Parts Back Counter Man Relationship Specialty Start Date End Date Carmela Sanchez MD PCP - General 07/30/08 08/13/[address] [place] [phone] documented as of this encounter
--- OUTSIDE RECORDS SUMMARY | 2021-10-28 15:11 | XMS_ITS | Encounter Summary ---
:1990 Author Organization [facility] Address [address] [place] [address] Care Team Providers Name Role Phone Carmela Sanchez MD Primary Care Provider Reason for Visit Reason Onset Date Comments 01/27/2011 Encounter Details Date Type Department Care Team Description 01/27/2011 Telephone [facility] Mary[place] [address] Social History Tobacco Use Types Packs/Day Years [...] encounter Miscellaneous Notes Telephone Encounter - Jie Robbins CNM - 01/27/2011 1414 EDT Watching twins - c/o spot tenderness in RUQ itching burning pain under R breast. Denies rash, no problems with palms of feet or hands. +FM, no vaginal complaints. Reviewed last APV visit - all VSS. Told should take 2 tylenol and benadryl - get someone to help with care of twins and see what happensto pain when she lies down. Call back if symptoms do not get better. elephone Encounter - Tray Duronleanne Marybeth - 01/27/2011 1355 EDT Pt seen 01/26, c/o itching and pain on abdomen, specifically RUQ. Told to follow up at next visit orcall if it worsens. Calling today to report the pain seems to have gotten better, but itching is worse -- pt states she is having difficulty tolerating clothing on the area. Denies rash. Please advise. documented in this encounter Plan of Treatment Not on filedocumented as of this encounter Visit Diagnoses Not on filedocumented in this encounter Care Teams Welder Plasma Arc Relationship Specialty Start Date End Date Carmela Sanchez MD PCP - General 07/30/08 08/13/[address] [place] [phone] documented as of this encounter
--- OUTSIDE RECORDS SUMMARY | 2021-10-28 15:11 | XMS_ITS | Encounter Summary ---
:1990 Author Organization [facility] Address [address] [place] [address] Care Team Providers Name Role Phone Carmela Sanchez MD Primary Care Provider Reason for Visit Reason Onset Date Comments Labs Only 03/31/2011 Encounter Details Date Type Department Care Team Description 03/31/2011 Telephone [facility] Carmela Sharma MD Labs Only Medicine - [address] [phone] (Wo rk) Social History Tobacco Use Types [...] Telephone Encounter - Jessie Goodrich LPN - 03/31/2011 1447 EST Patient and VNa notified to draw a dilantin level on Sunday04/04/2012 elephone Encounter - Naida Alvarado - 03/31/2011 1243 EST Trang from VNA wondering about patient's blood draws for her Dilantin. She was discharged from the [facility] stating a blood draw was due in 2 weeks. She was discharged 10 days ago. Please call patient on what to do. documented in this encounter Plan of Treatment Not on filedocumented as of this encounter Visit Diagnoses Not on filedocumented in this encounter Care Teams Unit Aid Relationship Specialty Start Date End Date Carmela Sanchez MD PCP - General 07/30/08 08/13/[address] [place] [phone] documented as of this encounter
--- OUTSIDE RECORDS SUMMARY | 2021-10-28 15:11 | XMS_ITS | Encounter Summary ---
:1990 Author Organization [facility] Address [address] [place] [address] Care Team Providers Name Role Phone Carmela Sanchez MD Primary Care Provider Reason for Visit Reason Onset Date Comments Other 05/06/2011 feeling faint Encounter Details Date Type Department Care Team Description 05/06/2011 Telephone [facility] Fatemeh Blanca MD [facility] er (feeling faint) Family Medicine - [address] [id number] Social History Tobacco Use Types Packs/Day Years [...] this encounter Miscellaneous Notes Telephone Encounter - Fatemeh Blanca MD - 05/06/2011 6602 EST Telephone Call Encounter: CC: Feeling faint. Information provided by: patient S: Pt was found to have an ovarian cyst on 05/04/2011, please see ED notes. Since this visit, the bleeding has decreased a lot. Pt was soaking a pad every hour, a couple days ago, now is takes over 5 hours to change a pad. Drinking lots of water and is eating well. She is calling for concern of feeling dizzy and light headed when getting up or moving her head . No chest pain or shortness of breath. Results for RENETTA DAWKINS ( ) as of 05/06/2011 21:53 05/04/2011 19:25 WBC 5.98 RBC 4.43 Hemoglobin 14.0 HCT 40.7 MCV 92 MCH 31.6 MCHC 34.4 PLT 201 RDW-CV 14.4 A/P: 21yo with recent evaluation in the ED for menorrhagia and ovarian cysts now calling with concern of dizziness. No known loss of consciousness and mentating well on the phone. -I recommended for patient to continue to drink lots of water. -I advised patient to monitor blood flow and that decreasing amount of blood loss is a good sign -I also advised for her to get up slowly and avoid fast motions for now If symptoms progress or worsen she understands to seek further help. FATEMEH BLANCA MD [employer] Pager [phone] 05/06/2011 21:54 documented in this encounter Plan of Treatment Not on filedocumented as of this encounter Visit Diagnoses Not on filedocumented in this encounter Care Teams Court Bailiff Relationship Specialty Start Date End Date Carmela Sanchez MD PCP - General 07/30/08 08/13/[address] [place] [phone] documented as of this encounter
--- OUTSIDE RECORDS SUMMARY | 2021-10-28 15:11 | XMS_ITS | Encounter Summary ---
:1990 Author Organization [facility] Address [address] [place] [address] Care Team Providers Name Role Phone Carmela Sanchez MD Primary Care Provider Reason for Visit Reason Comments Non-stress Test Encounter Details Date Type Department Care Team Description 01/31/2011 Hospital Encounter [facility] Maycol Molina MD Birthing Center Unit Gisele Angeles MD [address] [facility] [address] [place] [address] [address] [place] [address] Social History Tobacco Use Types [...] Sign Reading Time Taken Comments Blood Pressure 118/68 01/31/2011 1838 EDT Pulse 82 01/31/2011 1838 EDT Temperature 35.6 ??C (96.1 ??F) 01/31/2011 1838 EDT Respiratory Rate 18 01/31/2011 1838 EDT Oxygen Saturation - - Inhaled Oxygen Concentration - - Weight - - Height - - Body Mass Index - - documented in this encounter Discharge Instructions Eloisa Newman CNM - 01/31/2011 Discharge Instructions L&D Call your provider if: ?? Your water breaks ?? There's any bright red bleeding ?? Your are not feeling the baby move ?? Severe headaches and/or blurry vision ?? Contractions are closer together and/or stronger, or you are having constant pain Medications: ?? Continue any present medication Activity: ?? Drink plenty of fluids and eat well ?? As tolerated, lie on your left side while resting/nappin Call Provider's Office For: ?? Any questions or concerns ?? See you on Eloisa Tuttle CNM 01/31/2011 18:56 documented in this encounter Medications at Time of Discharge Medication Sig Dispensed Refills Start Date End Date acetaminophen (TYLENOL) Take 2 Tabs by mouth 100 Tab 2 02/18/2011 500 mg every 6 hours as tabletIndications: needed for Pain. Muscle strain of chest wall albuterol (VENTOLIN Inhale 2 Puffs as 1 Inhaler 1 1 02/14/2011 HFA) 90 mcg/Actuation directed as needed for inhaler Wheezing. aluminum & magnesium Take 15 mL by mouth 0 02/18/2011 hydroxide-simethicone every 6 hours as (MYLANTA-DS) 400-400-40 needed. mg/5 mL suspension docusate sodium Take 100 mg by mouth 2 0 10/03/19 11 03/23/2011 (COLACE) 100 mg times daily as needed. capsuleIndications: Indications: constipation CONSTIPATION pantoprazole (PROTONIX) Take 1 Tab by mouth [...] Care documented in this encounter Progress Notes Eloisa Tuttle CNM - 01/31/2011 1900 EDT CC: decreased movement HPI: many discomforts of . Maykel nixon. No headache, visual changes, epigastric pain, worsening edema. Baby had not moved since the am but she did note movement on the way. She denies loss of fluid, vaginal bleeding, labor contractions. She is worried about her depression and could it affect the baby. On clarification she relates that she is tired and doesn't feel like doing things. Sleeping well. No thoughts of harm to self or other.She does not want to be on medication and will not want medication if she can avoid it. She feels she has lots of support and can access help if she needs it and knows when to ask O: Blood pressure 118/68, pulse 82, temperature 35.6 ??C (96.1 ??F), temperature source Tympanic, resp. rate 18, last menstrual period 05/22/2010. Abdomen soft non tender Cephalic, LOT uterus soft non tender. EFM: FHT 140s moderate varibility, reactive, no decelerations. No contractions. A: reactive NST. Mood stable off meds currently P: Home with precautions. Reviewed reportable symptoms. RTC on as scheduled Elizabeth osborne RN - 01/31/2011 1841 EDT Pt here c/o decreased movement today.Baby started to move on the way to the hospital.Given PO apple juice.Feeling and hearing Baby move while on monitor.S Parag ORTEZ informed.Pt intact,denies vaginal bleeding.VSS. documented in this encounter Miscellaneous Notes Scanned Note-Null - Acetylene Cutter, Scan - 02/03/2011 0930 EDT canned Note- Null - Acetylene Cutter, Scan - 02/01/2011 07 EDT canned Note- Null - Acetylene Cutter, Scan - 02/01/2011 07 EDT documented in this encounter Plan of Treatment Not on filedocumented as of this encounter Visit Diagnoses Not on filedocumented in this encounter Orders Admission Count Last Ordered Date First Ordered Date ADMIT TO OBSERVATION 1 01/31/2011 Discharge Count Last Ordered Date First Ordered Date DISCHARGE PATIENT 1 01/31/2011 documented in this encounter Care Teams Scutcher Tender Relationship Specialty Start Date End Date Carmela Sanchez MD PCP - General 07/30/08 08/13/[address] [place] [address] [phone] documented as of this encounter
--- OUTSIDE RECORDS SUMMARY | 2021-10-28 15:11 | XMS_ITS | Encounter Summary ---
:1990 Author Organization [facility] Address [address] [place] [address] Care Team Providers Name Role Phone Carmela Sanchez MD Primary Care Provider Reason for Visit Reason Onset Date Comments Medications Refill 03/16/2011 BREAST PUMP Encounter Details Date Type Department Care Team Description 03/16/2011 Telephone [facility] Carmela Sanchez, Medi cations Refill Family Medicine - MD (BREAST PUMP) [address] [address] [phone] (Wo rk) Social History Tobacco Use Types [...] this encounter Miscellaneous Notes Telephone Encounter - Naida Alvarado - 03/16/2011 0918 EST Antionette from the [facility] /dept of health called. Patient Mom of Giuseppe Jara 02/16/2011 needs a electric breast pump. Needs to be faxed to Jie lAlen at [phone]. documented in this encounter Plan of Treatment Not on filedocumented as of this encounter Visit Diagnoses Diagnosis Normal breast feeding - Primary Reserved for inherently not codable conc epts WITHOUT codable children documented in this encounter Orders Equipment Count Last Ordered Date First Ordered Date GENERIC DME ORDER 1 03/16/2011 documented in this encounter Care Teams Die Caster Relationship Specialty Start Date End Date Carmela Sanchez MD PCP - General 07/30/08 08/13/[address] [place] [address] [phone] documented as of this encounter
--- OUTSIDE RECORDS SUMMARY | 2021-10-28 15:11 | XMS_ITS | Encounter Summary ---
:1990 Author Organization [facility] Address [address] [place] [address] Care Team Providers Name Role Phone Carmela Sanchez MD Primary Care Provider Reason for Visit Reason Onset Date Comments Depression 03/03/2011 Encounter Details Date Type Department Care Team Description 03/03/2011 Telephone [facility] Women's Nkechi tt, Jie River APRN [facility] Depression Services - [address] [address] [address], [place] [phone] (Wo rk) Social History Tobacco Use Types [...] 20 mg Take 1 Cap by mouth 90 Cap 0 1 05/03/2010 03/10/2011 capsule daily. documented in this encounter Miscellaneous Notes Telephone Encounter - Jie Robbins CNM - 03/03/2011 1125 EST Delivered 15 days ago. Mixing breastmilk and formula - baby got thrush in hospital (he was on antibiotics) - now pumping and trying to get back to . Had been on Prozac - rx'ed by Dr. Carmela Sanchez. Is getting some sleep, but finds herself teary and then yelling @ family when he cries. No ideas of harming self and infant. Given her hx of depression - will rx Prozac 20 q day to [facility] in [place]. Told Kiera she needs to make an appt with Dr. Sanchez for f/u documented in this encounter Plan of Treatment Not on filedocumented as of this encounter Visit Diagnoses Not on filedocumented in this encounter Care Teams Coder Operator Relationship Specialty Start Date End Date Carmela Sanchez MD PCP - General 07/30/08 08/13/[address] [place] [phone] documented as of this encounter
--- OUTSIDE RECORDS SUMMARY | 2021-10-28 15:11 | XMS_ITS | Encounter Summary ---
:1990 Author Organization [facility] Address [address] [place] [address] Care Team Providers Name Role Phone Carmela Sanchez MD Primary Care Provider Reason for Visit Reason Onset Date Comments Labs Only 04/25/2011 Encounter Details Date Type Department Care Team Description 04/25/2011 Telephone [facility] Carmela Sharma MD Labs Only Medicine - [address] [address] [phone] (Wo rk) Social History Tobacco Use Types [...] this encounter Miscellaneous Notes Telephone Encounter - Betsy Cameron RN - 04/26/2011 0832 EST Outgoing call to Trang of [facility] to notify her that Renetta has a scheduled appt here tomorrow. We will draw her Dilantin level at that visit. I've asked her to remind Renetta to bring all of her Rx bottles with her to her appt so that we can verify meds. Outgoing call to Renetta. No answer. I've left a detailed message with her appt time tomorrow as well as asking her to bring all of her medication bottles with her to her appt so that we can reconcile her meds. Betsy Cameron RN elephone Encounter - Corina Bianchi - 04/25/2011 1113 EST Trang from the [facility] is calling to see when the pt should have her next blood draw for her Dilantin level. Pt was unsure of when this should be done. documented in this encounter Plan of Treatment Not on filedocumented as of this encounter Visit Diagnoses Not on filedocumented in this encounter Care Teams Machine Room Engineer Relationship Specialty Start Date End Date Carmela Sanchez MD PCP - General 07/30/08 08/13/[address] [place] [phone] documented as of this encounter
--- OUTSIDE RECORDS SUMMARY | 2021-10-28 15:12 | XMS_ITS | Encounter Summary ---
:1990 Author Organization [facility] Address [address] [place] [address] Care Team Providers Name Role Phone Carmela Sanchez MD Primary Care Provider Reason for Visit Reason Onset Date Comments Other 08/25/2010 nausea,dizziness,hea dache Encounter Details Date Type Department Care Team Description 08/25/2010 Telephone [facility] Romana Andersen, KELSI Other Women's Services - Main (devonte sea,dizziness,headac [place] he) [address] [place] [address] Social History Tobacco Use Types Packs/Day Years Used Date Current Every Day Smoker Cigarettes 0.25 7 Smokeless Tobacco: Never Used Alcohol Use Standard Drinks/Week Comments Yes 0 (1 standard drink = 0.6 oz pure alcoho l) occassionally Alcohol Habits Answer Date Recorded How often do you have a drink containing alcohol? Not asked How many drinks containing alcohol do you have on a Not aske d typical day when you are drinking? How often do you have six or more drinks on one occasion? No t asked Comment: occassionally 01/28/2010 Food Insecurity Answer Date Recorded Within the [...] Telephone Encounter - Romana Andersen RN - 08/25/2010 1143 EDT TC from patient concerned with not feeling well today and yesterday. States she feels nauseous andlightheaded after she's up and walking around for past 2 to 3 days. Feels hot and sweaty at times, not sure if she's had a fever because she doesn't have thermometer. Denies vaginal bleeding or pain, some cramps. Recommended extra rest today, increase fluids. Advised to get thermometer and take temp if feels feverish, to call with temp >100. May need to be seen tomorrow if not feeling any better. documented in this encounter Plan of Treatment Not on filedocumented as of this encounter Visit Diagnoses Not on filedocumented in this encounter Care Teams Product Safety Test Engineer Relationship Specialty Start Date End Date Carmela Sanchez MD PCP - General 07/30/08 08/13/[address] [place] [phone] documented as of this encounter
--- OUTSIDE RECORDS SUMMARY | 2021-10-28 15:12 | XMS_ITS | Encounter Summary ---
:1990 Author Organization Address [address] [place] [address] Care Team Providers Name Role Phone Carmela Sanchez MD Primary Care Provider Encounter Details Date Type Department Care Team Description 10/06/2010 Orders Only [facility] Romana Andersen, RN Super vision of other Women's Services - [facility] [place] (Primary Dx) [address] [place] [address] Social History Tobacco Use Types [...] on filedocumented as of this encounter Results (ABNORMAL) HEMAGRAM (11/03/2010 15:38 EDT) Pathologist Sig nature WBC 13.02 (H) 4.0 - 12.4 K/cmm [facility] RBC 3.65 (L) 3.86 - 5.04 M/cmm [facility] Hemoglobin 12.4 11.6 - 15.2 gm/dl [facility] HCT 35.6 34.9 - 44.4 % [facility] MCV 98 81 - 98 fl [facility] MCH 33.9 (H) 26.7 - 33.3 pg [facility] MCHC 34.8 32.1 - 35.9 gm/dl [facility] PLT 202 141 - 320 K/cmm [facility] RDW-CV 13.6 11.7 - 14.6 % [facility] Specimen Blood specimen (specimen) Performing Organization Address City/[facility]/ZIP Code Phon e Number [facility] [address] [place] [address] SERVICES [facility] [address] [place] [address] GLUCOSE-1HR GESTATIONAL SCREEN (11/03/2010 15:38 EDT) Glucose Dose 50 g [facility] Glucose-1hr Gest 80 50 - 135 [facility] Comment: mg/dl LAB A one hour glucose greater than or equal to 135 mg/dl should be further evaluated with a formal three hour glucose tolerance t est. Specimen Blood specimen (specimen) Performing Organization Address [facility] Phon e Number [facility] [address] [place] [address] SERVICES [facility] [address] [place] [phone] documented in this encounter Visit Diagnoses Diagnosis Supervision of other normal - Primary documented in this encounter Care Teams Emergency Detail Driver Relationship Specialty Start Date End Date Carmela Sanchez MD PCP - General 07/30/08 08/13/[address] [place] [phone] documented as of this encounter
--- OUTSIDE RECORDS SUMMARY | 2021-10-28 15:12 | XMS_ITS | Encounter Summary ---
:1990 Author Organization [facility] Address [address] [place] [address] Care Team Providers Name Role Phone Carmela Sanchez MD Primary Care Provider Encounter Details Date Type Department Care Team Description 11/03/2010 Phlebotomy Only [facility] Livestock Nutrition Territory Manager, Super vision of [facility] Outpatient normal [address] [place], [place] [id number] [phone] Social History Tobacco Use Types Packs/Day Years [...] Name Priority Date/Time Associated Diagnosis Comme nts GLUCOSE-1HR Routine 11/03/2010 15:38 Supervision of other Res ults for this GESTATIONAL SCREEN EDT normal proce dure are in the results section. COMPLETE BLOOD COUNT Routine 11/03/2010 15:38 Supervision of o ther Results for this EDT normal procedure a re in the results section. documented in this encounter Results (ABNORMAL) HEMAGRAM (11/03/2010 15:38 [...] Specimen Blood specimen (specimen) Performing Organization Address City/[facility] Phon e Number [facility] [address] [place] [address] SERVICES [facility] [address] [place] [address] GLUCOSE-1HR GESTATIONAL SCREEN (11/03/2010 15:38 EDT) Glucose Dose 50 g [facility] Glucose-1hr Gest 80 50 - 135 [facility] Comment: mg/dl LAB A one hour glucose greater than or equal to 135 mg/dl should be further evaluated with a formal three hour glucose tolerance t est. Specimen Blood specimen (specimen) Performing Organization Address City/[facility] Phon e Number [facility] [address] [place] [address] SERVICES [facility] [address] [place] [phone] documented in this encounter Visit Diagnoses Diagnosis Supervision of other normal documented in this encounter Care Teams Geodetic Technician Relationship Specialty Start Date End Date Carmela Sanchez MD PCP - General 07/30/08 08/13/[address] [place] [phone] documented as of this encounter
--- OUTSIDE RECORDS SUMMARY | 2021-10-28 15:12 | XMS_ITS | Encounter Summary ---
:1990 Author Organization [facility] Address [address] [place] [address] Care Team Providers Name Role Phone Carmela Sanchez MD Primary Care Provider Reason for Visit Reason Onset Date Comments Urinary Frequency 05/21/2010 Patient calling back - feeling better does not want to wait in Encounter Details Date Type Department Care Team Description 05/21/2010 Telephone [facility] Christine Lee MD Urinary Frequency Family Medicine - [address] [facility] ([place] [address] - feeling better does [address] not want to wait in ) [place] [address] [phone] Social History Tobacco Use Types Packs/Day Years Used Date Current Every Day Smoker Cigarettes 0.5 7 Smokeless Tobacco: Never Used Alcohol Use [...] this encounter Miscellaneous Notes Telephone Encounter - Rosa Yajaira - 05/21/2010 7346 EST S: Refert to Dr. Garner's note - patient feeling better. Went to walk in but does not want to wait. She will come into clinic tomorrow or call if any change occurs. documented in this encounter Plan of Treatment Not on filedocumented as of this encounter Visit Diagnoses Not on filedocumented in this encounter Care Teams Space Planner Relationship Specialty Start Date End Date Carmela Sanchez MD PCP - General 07/30/08 08/13/[address] [place] [phone] documented as of this encounter
--- OUTSIDE RECORDS SUMMARY | 2021-10-28 15:12 | XMS_ITS | Encounter Summary ---
:1990 Author Organization [facility] Address [address] [place] [address] Care Team Providers Name Role Phone Carmela Sanchez MD Primary Care Provider Encounter Details Date Type Department Care Team Description 11/03/2010 Hospital Encounter [facility] - Fransisco Lynch R, [facility] WATER OPERATOR [facility] 111 [facility] [address] [place] [address] [facility] [phone] [address], [address] [place] [phone] (Wo rk) Social History Tobacco Use Types [...] 13:04 EST documented as of this encounter Medications at [...] mcg/Actuation directed as needed for inhaler Wheezing. butalbital-acetaminophe Take 1-2 Tabs by mouth 0 01/16/2011 n-caffeine (FIORICET, every 4 hours as ESGIC) 50-325-40 mg per needed. Indications: tabletIndications: MIGRAINE migraine docusate sodium Take 100 mg by mouth 2 0 10/03/19 11 03/23/2011 (COLACE) 100 mg times daily as needed. capsuleIndications: Indications: constipation CONSTIPATION omeprazole (PRILOSEC) Take 1 Cap by mouth 180 Cap 4 09/1201/04/2011 20 mg every 12 hours. capsuleIndications: GERD (gastroesophageal reflux disease) Vit-Iron Take 1 Tab by mouth 30 Tab 11 1 03/23/2011 Fumarate-FA ( daily. VITAMIN WITH MINERALS) 28-0.8 mg Tab documented as of this encounter Discharge Disposition Disposition Code Departure Means Destination Home or Self Intermediate documented in this encounter Plan of Treatment Not on filedocumented as of this encounter Visit Diagnoses Not on filedocumented in this encounter Care Teams Forensic Examiner Relationship Specialty Start Date End Date Carmela Sanchez MD PCP - General 07/30/08 08/13/[address] [place] [phone] documented as of this encounter
--- OUTSIDE RECORDS SUMMARY | 2021-10-28 15:12 | XMS_ITS | Encounter Summary ---
:1990 Author Organization [facility] Address [address] [place] [address] Care Team Providers Name Role Phone Carmela Sanchez MD Primary Care Provider Encounter Details Date Type Department Care Team Description 08/09/2010 Results Only [facility] Of Care User [phone] [address] [place] [address] Social History Tobacco Use Types Packs/Day Years [...] Priority Date/Time Associated Diagnosis Comme nts POCT URINALYSIS Routine 08/09/2010 13:56 EDT Resu lts for this procedure are i n the results section. documented in this encounter Results (ABNORMAL) POCT URINALYSIS (08/09/2010 13:56 EDT) Color YELLOW [facility] Clarity, UA CLOUDY [facility] Glucose Neg NEG [facility] Bilirubin Neg NEG [facility] Ketones 1+ (A) NEG [facility] Specific [place] 1.025 1.001 - 1.035 [facility] Blood Neg NEG [facility] pH 7.0 4.6 - 8.0 [facility] Protein Neg NEG [facility] Urobilinogen 0.2 0.2 - 1.0 [facility] E.U./dl LAB Nitrite Neg NEG [facility] Leuk Esterase Neg NEG [facility] brand advisor ID [id number] [facility] Test performed at [facility] Specimen Performing Organization Address City/State/ZIP Code Phon e Number [facility] [address] [place] [address] SERVICES [facility] [address] [place] [address] documented in this encounter Visit Diagnoses Not on filedocumented in this encounter Care Teams National Sales Consultant Relationship Specialty Start Date End Date Carmela Sanchez MD PCP - General 07/30/08 08/13/[address] [place] [phone] documented as of this encounter
--- OUTSIDE RECORDS SUMMARY | 2021-10-28 15:12 | XMS_ITS | Encounter Summary ---
:[address] [facility] Address [address] [place] [address] Care Team Providers Name Role Phone Carmela Sanchez MD Primary Care Provider Encounter Details Date Type Department Care Team Description 05/21/2010 Hospital Encounter [facility] [place] Sargent MD [address] [address] [place], [place] [phone] (Wo rk) Social History Tobacco Use Types [...] Sig Dispensed Refills Start Date End Date ACETAMINOPHEN (TYLENOL Take by mouth. 0 06/05/2010 ORAL) albuterol (VENTOLIN HFA) Inhale 2 Puffs as 1 Inhaler 1 08/201002/14/2011 90 mcg/Actuation inhaler directed as needed for Wheezing. dicyclomine (BENTYL) 20 Take 20 mg by mouth 0 06/05/2010 mg tablet as needed. ibuprofen (MOTRIN) 800 mg Take 1 Tab by mouth 100 Tab 3 0 08/19/2009 07/22/2010 tabletIndications: Back as needed for Pain. pain omeprazole (PRILOSEC) 20 Take 1 Cap by mouth 30 Cap 5 09/12/2010 mg capsuleIndications: daily. GERD (gastroesophageal reflux disease) documented as of this encounter Discharge Disposition Disposition Code Departure Means Destination Home or Self Care documented in this encounter Miscellaneous Notes Scanned Note-Null - Inpatient, MD Rosemarie - 05/21/2010 0000 EST canned Note-Null - Inpatient, MD Rosemarie - 05/21/2010 0000 EST documented in this encounter Plan of Treatment Not on filedocumented as of this encounter Visit Diagnoses Not on filedocumented in this encounter Care Teams Welding Manager Relationship Specialty Start Date End Date Carmela Sanchez MD PCP - General 07/30/08 08/13/[address] [place] [phone] documented as of this encounter
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
--- OUTSIDE RECORDS SUMMARY | 2021-10-28 15:12 | XMS_ITS | Encounter Summary ---
:1990 Author Organization [facility] Address [address] [place] [address] Care Team Providers Name Role Phone Carmela Sanchez MD Primary Care Provider Reason for Visit Reason Comments Urinary Tract Infection Encounter Details Date Type Department Care Team Description 08/09/2010 Routine [facility] David Ross [place] : 13w6d Women's Services [address] [address] [address], [place] [phone] (Wo rk) Social History Tobacco Use Types [...] Sign Reading Time Taken Comments Blood Pressure 92/50 08/09/2010 1348 EDT Pulse - - Temperature - - Respiratory Rate - - Oxygen Saturation - - Inhaled Oxygen Concentration - - Weight 77.3 kg (170 lb 6.4 oz) 08/09/2010 1348 EDT Height - - Body Mass Index 28.36 07/22/2010 1100 EDT documented in this encounter Discharge Disposition Disposition Code Departure Means Destination Auto Discharge documented in this encounter Progress Notes Vera San LPN - 08/09/2010 1426 EDT Recent Labs Basename 08/09/10 1356 ??? COLOR YELLOW ??? CLARITYU CLOUDY ??? GLUCOSEUAPOC Neg ??? BILIRUBIN Neg ??? KETONES 1+* ??? SPECGRAV 1.025 ??? BLOOD Neg ??? PHUA 7.0 ??? PROTEINUAPOC Neg ??? UROBILINOGEN 0.2 ??? NITRITE Neg ??? LEUKESTER Neg Provider informed of urine dip results.- DM David Diaz CNM - 08/09/2010 1423 EDT S: [place] vaginal itching and burning yesterday, uncertain if associated with voids, improved today. Has history of frequent UTis in past and occas yeast. Admits to coitus yesterday and worry about a small tear as she feels more vaginal dryness. She would like to see the [facility] for her care. O: BP 92/50 Wt 77.293 kg (170 lb 6.4 oz) LMP 05/22/2010 See flow. Spec exam: Vulva: pink, no lesions or trauma Vagina: no erythema or discharge except mucous. No trauma seen Cx: No exudate Wet mount: Neg for clue, yeast, increased WBCs. + lactos, DENNY amine negative Urine dipstick all Negative with exception of 1+ ketones, sp grav 1.025 A: at 13w 6d Vaginal irritation with no signs of infection Small ketones in urine P: Discussed findings and advised H2O soluble lubricant with coitus. Discussed diet (which she reports as healthy - limited diet review confirms) and need for regualr meals and adequate hydration. Has ANGELINE scheduled Will continue to decrease smoking, partner encouraged as well. Plans to see CNMs for care, please schedule accordingly. documented in this encounter Plan of Treatment Not on filedocumented as of this encounter Visit Diagnoses Not on filedocumented in this encounter Care Teams Physician/Internist Relationship Specialty Start Date End Date Carmela Sanchez MD PCP - General 07/30/08 08/13/[address] [place] [phone] documented as of this encounter
--- OUTSIDE RECORDS SUMMARY | 2021-10-28 15:12 | XMS_ITS | Encounter Summary ---
:1990 Author Organization [facility] Address [address] [place] [address] Care Team Providers Name Role Phone Carmela Sanchez MD Primary Care Provider Encounter Details Date Type Department Care Team Description 09/15/2010 Hospital Encounter [place] - Jie Robbins[address], [address], [place] [phone] (Wo rk) Social History Tobacco Use Types [...] mouth 100 Tab 2 02/18/2011 500 mg tabletIndications: every 6 hours as Muscle strain of chest needed for Pain. wall albuterol (VENTOLIN HFA) Inhale 2 Puffs as 1 Inhaler 1 08/201002/14/2011 90 mcg/Actuation inhaler directed as needed for Wheezing. butalbital-acetaminophen- Take 1-2 Tabs by 0 01/16/2011 caffeine (FIORICET, mouth every 4 hours ESGIC) 50-325-40 mg per as needed. tabletIndications: Indications: migraine MIGRAINE omeprazole (PRILOSEC) 20 Take 1 Cap by mouth 180 Cap 4 01/04/2011 mg capsuleIndications: every 12 hours. GERD (gastroesophageal reflux disease) Vit-Iron Take 1 Tab by mouth 30 Tab 11 1 03/23/2011 Fumarate-FA ( daily. VITAMIN WITH MINERALS) 28-0.8 mg Tab documented as of this encounter Discharge Disposition Disposition Code Departure Means Destination Home or Self [facility] documented in this encounter Plan of Treatment Not on filedocumented as of this encounter Visit Diagnoses Not on filedocumented in this encounter Care Teams Private Investigator Relationship Specialty Start Date End Date Carmela Sanchez MD PCP - General 07/30/08 08/13/[address] [place] [phone] documented as of this encounter
--- OUTSIDE RECORDS SUMMARY | 2021-10-28 15:12 | XMS_ITS | Encounter Summary ---
:1990 Author Organization [facility] Address [address] [place] [address] Care Team Providers Name Role Phone Carmela Sanchez MD Primary Care Provider Reason for Visit Reason Comments Other Confirm positive test. Encounter Details Date Type Department Care Team Description 07/04/[address] [facility] Erica Brock on, WELDING MACHINE TENDER examination Women's Services - [address] or test , positive [facility] [address] result (Primary Dx) [address] [place] [address] [address], [place] [address] (Wo rk) Social History Tobacco [...] Sign Reading Time Taken Comments Blood Pressure 112/60 07/04/2010 1441 EDT Pulse - - Temperature - - Respiratory Rate - - Oxygen Saturation - - Inhaled Oxygen Concentration - - Weight 77.6 kg (171 lb) 07/04/2010 1441 EDT Height 165.1 cm (5' 5) 07/04/2010 1441 EDT Body Mass Index 28.46 07/04/2010 1441 EDT documented in this encounter Ordered Prescriptions Prescription Sig Dispensed Refills Start Date End Date Vit-Iron Take 1 Tab by mouth 30 Tab 11 1 03/23/2011 Fumarate-FA ( daily. VITAMIN WITH MINERALS) 28-0.8 mg Tab documented in this encounter Progress Notes Dee Brock FNP - 07/04/2010 1709 EDT Pt is a 20 y/o female here today with her boyfriend Tyrone. She had a positive test last night and this morning at home. She was not using control as she was told she wouldn't be able to get because she had chlamydia with PID and treatment back in fall 2009. She and her partner were treated with Zithromax last fall and a genprobe in 04/2010 was negative. She welcomes a and is here for a definitive test. Pt would like another chlamydia test just as a precaution. LMP was 05/22/10. Pt is a smoker and has hx of depression. Not currently on meds or getting counseling for depression. Pt is a smoker and trying to quit. O: UPT is positive today. Pelvic exam: VULVA: normal appearing vulva with no masses, tenderness or lesions, VAGINA: normal appearing vagina with normal color and discharge, no lesions and CERVIX: normal appearing cervix withoutdischarge or lesions. genprobe obtained. A: positive test in 20 y/o with past hx of chlamydia and PID treated fall 2009. P: Start vitamin. Discussed smoking cessation. Will schedule KAROLINA with nurse midwives. genprobe SANDY Barfield I spent a total of 15 minutes in face to face time with this patient and 10 minutes of that time wasspent in counseling and coordination of care as described in the progress note. documented in this encounter Plan of Treatment Not on filedocumented as of this encounter Procedures Procedure Name Priority Date/Time Associated Diagnosis Comme nts CHLAMYDIA/N. Routine 07/04/2010 14:59 Results for this GONORRHOEAE EDT examination or test, procedu re are in AMPLIFIED RNA positive result the results section. documented in this encounter Results CHLAMYDIA/GC AMPLIFIED (07/04/2010 14:59 EDT) Specimen [facility] Description LAB Chlamydia Result No Chlamydia [facility] trachomatis DNA LAB detected by ship's carpenter mediated amplification. GC Result No Neisseria [facility] gonorrhoeae DNA LAB detected by ship's carpenter mediated amplification. Specimen Other (qualifier value) Performing Organization Address City/State/ZIP Code Phon e Number [facility] [address] [place] [address] [facility] [address] [place] [address] documented in this encounter Visit Diagnoses Diagnosis examination or test, positive result - Primary documented in this encounter Discontinued Medications Medication Sig Discontinue Reason Start Date End Date multivitamin Take 1 Tab by 07/04/201007/04 vit-iron fumarate-FA mouth daily. ( PLUS, CALCIUM CARB,) 27-1 mg Tab tablet documented as of this encounter Care Teams Composite Layup Worker Relationship Specialty Start Date End Date Carmela Sanchez MD PCP - General 07/30/08 08/13/[address] [place] [phone] documented as of this encounter
--- OUTSIDE RECORDS SUMMARY | 2021-10-28 15:12 | XMS_ITS | Encounter Summary ---
:1990 Author Organization [facility] Address [address] [place] [address] Care Team Providers Name Role Phone Carmela Sanchez MD Primary Care Provider Reason for Visit Reason Comments Laboring Encounter Details Date Type Department Care Team Description 10/02/2010 Hospital Encounter [facility] Maycol Molina, Birthing Center Unit MD [address] [place] [address] Social History Tobacco Use Types [...] Sign Reading Time Taken Comments Blood Pressure 116/73 10/02/2010 1426 EDT Pulse 80 10/02/2010 1426 EDT Temperature 36.1 ??C (97 ??F) 10/02/2010 1426 EDT Respiratory Rate 18 10/02/2010 1426 EDT Oxygen Saturation - - Inhaled Oxygen Concentration - - Weight - - Height - - Body Mass Index - - documented in this encounter Discharge Instructions David Mosquera CNM - 10/02/2010 Discharge Instructions L&D Call your provider if: ?? Your water breaks ?? There's any bright red bleeding ?? Your are not feeling the baby move ?? Severe headaches and/or blurry vision ?? Contractions are closer together and/or stronger, or you are having constant pain Medications: ?? Continue any present medication ?? Change stool softener to one in the AM and one in evening if constipated. Don't take if having diarrhea. ?? Follow the instructions on the packaging Activity: ?? Drink plenty of fluids and eat well. Mild diet: bananas, rice, apple sauce or toast with diarrhea, nausea. ?? As tolerated, lie on your left side while resting/napping ?? Extra rest until you feel better Call Provider's Office For: ?? Keep next appointment with the midwives David Ross CNM, CNM 10/02/2010 15:51 documented in this encounter Medications at Time [...] Care documented in this encounter Progress Notes David Ross, JACQUIE - 10/02/2010 1558 EDT S: Here for evaluation of abdominal cramping, worsening over past 2-3 days. Worried is miscarrying. Uncertain if uterine tightening, having diarrhea last 4 days. Has IBS although usually constipated. Taking 2 stool softeners at HS. No bleeding, uncertain if leaking fluid feels something come out of vagina with coughing. Denies vag. Infection or UTI sx. Unable to eat/drink muchx 2 days as having some nausea and doesn't want to vomit so doesn't eat. Denies fever, chills. Under a lot of stress as quitting smoking for past 4 days and grandfather recently , mom/step-father just had twins. O: BP 116/73 Pulse 80 Temp(Src) 36.1 ??C (97 ??F) (Tympanic) Resp 18 LMP 05/22/2010 Sitting in bed, NAD, alert, oriented, worried. Near end of visit eating crackers/water without problem Abdomen soft, NT. Indicated feels pain in RLQ, and then changed to LLQ during only episode of cramping occuring here. No uterine contraction during this episode. No ctx on EFM. FHR 140s by rocael SSE: no pool, neg nitrazine, neg fern. White discharge in vault. Wet mount: no clues, neg amine, no increased WBCs, no trich, no yeast, ++ lactos. SVE: LCP Presenting part floating. No stool in rectum UA: Sp. Grav 1.025, 1+ ketones, otherwise negative. A: at 21w 4d with IBS cramping No evidence of PTL or infection P: Discussed importance of nutrition/fluids for /bowel health. To stop stool softener whilehaving loose stools, then may gradually use but BID versus double dose at hs. Discussed impact of anxiety/stress on bowel function. Keep next APV on 10/11/10 llie Skinner RN - 10/02/2010 1539 EDT 1540 Plan for d/c home with instructions Questions answered Ellie Macedo RN - 10/02/2010 1538 EDT 1536 Vag exam by Humberto Ross CNM Ellie Macedo RN - 10/02/2010 1439 EDT 1420 Pt presents to L&D with c/o nausea and loose stool since yesterday Efm on, po fluids given U/a obtained jacquie Giraldo in room sse done documented in this encounter Miscellaneous Notes Scanned Note-Null - Acoustic Intelligence Specialist, Scan - 10/02/2010 0000 EDT Scanned Note-Null - Acoustic Intelligence Specialist, Scan - 10/02/2010 0000 EDT Scanned Note-Null - Acoustic Intelligence Specialist, Scan - 10/02/2010 0000 EDT documented in this encounter Plan of Treatment Not on filedocumented as of this encounter Procedures Procedure Name Priority Date/Time Associated Comments Diagnosis URINALYSIS WITH Routine 10/02/2010 14:30 Results for this MICROSCOPIC IF EDT procedure are in POSITIVE the results section. UA REFLEX Routine 10/02/2010 14:30 Results for this EDT procedure are i n the results section. URINE CULTURE IF Routine 10/02/2010 14:30 Results for this POSITIVE EDT procedure are i n the results section. documented in this encounter Results UA REFLEX (10/02/2010 14:30 EDT) Pathologist Sig nature UA Billing Microscopic not JUNIOR MENDOZA indicated. Specimen Performing Organization Address City/State/ZIP Code Phon e Number [facility] [address] [place] [address] SERVICES [facility] [address] [place] [address] URINE CULTURE IF UA POSITIVE - NON POCT URINALYSIS ONLY (10/02/2010 14:30 EDT) Culture if Culture not [facility] Indicated indicated by urinalysis results. Specimen Urine (substance) Performing Organization Address [facility] Phon e Number [facility] [address] [place] [address] SERVICES [facility] [address] [place] [address] URINALYSIS (10/02/2010 14:30 EDT) Pathologist Sig nature Color, UA Yellow [facility] Clarity, UA Clear [facility] Glucose, UA Neg NEG [facility] Bilirubin, UA Neg NEG [facility] Ketones, UA Neg NEG [facility] Specific [place], 1.020 1.001 - 1.035 [facility] Urine Blood, UA Neg NEG [facility] pH, UA 6.5 4.6 - 8.0 [facility] Protein, UA Neg NEG [facility] Urobilinogen, UA 0.2 0.2 - 1.0 [facility] E.U./dl Nitrite, UA Neg NEG [facility] Leuk Esterase Neg NEG [facility] Specimen Urine (substance) Performing Organization Address [facility] Phon e Number [facility] [address] [place] [address] SERVICES [facility] [address] [place] [address] documented in this encounter Visit Diagnoses Not on filedocumented in this encounter Historical Medications This list may reflect changes made after this encounter. Medication Sig Dispensed Refills Start Date End Date docusate sodium Take 100 mg by mouth 2 0 10/03/19 11 03/23/2011 (COLACE) 100 mg times daily as needed. capsuleIndications: Indications: constipation CONSTIPATION added in this encounter Orders Admission Count Last Ordered Date First Ordered Date ADMIT TO OUTPATIENT 1 10/02/2010 Discharge Count Last Ordered Date First Ordered Date DISCHARGE PATIENT 1 10/02/2010 documented in this encounter Care Teams Ramp Lead Relationship Specialty Start Date End Date Carmela Sanchez MD PCP - General 07/30/08 08/13/[address] [place], [place] [phone] documented as of this encounter
--- OUTSIDE RECORDS SUMMARY | 2021-10-28 15:12 | XMS_ITS | Encounter Summary ---
:1990 Author Organization [facility] Address [address] [place] [address] Care Team Providers Name Role Phone Carmela Sanchez MD Primary Care Provider Reason for Visit Reason Onset Date Comments Abdominal Pain 11/02/2010 Encounter Details Date Type Department Care Team Description 11/02/2010 Telephone [facility] Women's Romana Andersen RN Abdominal Pain Services - [facility] [address] [place] [address] Social History Tobacco Use Types [...] Telephone Encounter - Romana Andersen RN - 11/02/2010 1031 EDT TC from patient with abdominal cramping, pelvic bone pain, diarrhea, painful BM's for one week. Denies uterine tightening. Has been told in the past prior to that she has IBS. ?recurrence of intestinal problem. Given appointment for today. documented in this encounter Plan of Treatment Not on filedocumented as of this encounter Visit Diagnoses Not on filedocumented in this encounter Care Teams Security Risk Analyst Relationship Specialty Start Date End Date Carmela Sanchez MD PCP - General 07/30/08 08/13/[address] [place] [phone] documented as of this encounter
--- OUTSIDE RECORDS SUMMARY | 2021-10-28 15:12 | XMS_ITS | Encounter Summary ---
:1990 Author Organization [facility] Address [address] [place] [address] Care Team Providers Name Role Phone Carmela Sanchez MD Primary Care Provider Reason for Visit Reason Comments Appointment Related Encounter Details Date Type Department Care Team Description 09/22/2010 Telephone [facility] Rolando Steward, PT Appointment Related Family Medicine [id number] [place] [address] [facility] [phone] Social History Tobacco Use Types Packs/Day Years [...] this encounter Miscellaneous Notes Telephone Encounter - Renetta Lay - 09/22/2010 1042 EDT Renetta called to cancel her appt this afternoon stating she just left the hospital after being treated for a sinus infection. She is not feeling well and will call back to reschedule when she's feeling better. documented in this encounter Plan of Treatment Not on filedocumented as of this encounter Visit Diagnoses Not on filedocumented in this encounter Care Teams Laboratory Secretary Relationship Specialty Start Date End Date Carmela Sanchez MD PCP - General 07/30/08 08/13/[address] [place] [phone] documented as of this encounter
--- OUTSIDE RECORDS SUMMARY | 2021-10-28 15:12 | XMS_ITS | Encounter Summary ---
:1990 Author Organization [facility] Address [address] [place] [address] Care Team Providers Name Role Phone Carmela Sanchez MD Primary Care Provider Encounter Details Date Type Department Care Team Description 06/05/2010 Hospital Encounter [facility] Cristiana Aponte, Urgent [facility] - [facility] [address] [place] [address] [place], [place] [phone] (Wo rk) Social History Tobacco Use Types [...] Dispensed Refills Start Date End Date albuterol (VENTOLIN HFA) Inhale 2 Puffs as 1 Inhaler 1 08/201002/14/2011 90 mcg/Actuation inhaler directed as needed for Wheezing. ibuprofen (MOTRIN) 800 Take 1 Tab by mouth 100 Tab 3 08/0707/22/2010 mg tabletIndications: as needed for Pain. Back pain omeprazole (PRILOSEC) 20 Take 1 Cap by mouth 30 Cap 5 09/12/2010 mg capsuleIndications: daily. GERD (gastroesophageal reflux disease) documented as of this encounter Discharge Disposition Disposition Code Departure Means Destination Home or Self Care documented in this encounter ED Notes Meredith Houston NP - 06/05/20101955 EST Patient presents with cough and a history of asthma. O2 sat 100%. Arrival at 19:50. Patient advised that she would likely need nebulizer treatment etc. And she agreed to go the ED. She was breathing easily on room air. Woodrow Wilkins - 06/05/20101952 EST Patient triaged at front sight attacher and c/o URI sx's with a hx of asthma. Provider requested that patient have an O2 sat which was 100% on room air. Patient did not appear in distress. As per provider ([facility]),patient referred to ED to be seen. documented in this encounter Plan of Treatment Not on filedocumented as of this encounter Visit Diagnoses Not on filedocumented in this encounter Care Teams Strategy Planning Consultant Relationship Specialty Start Date End Date Carmela Sanchez MD PCP - General 07/30/08 08/13/[address] [place] [phone] documented as of this encounter
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
--- OUTSIDE RECORDS SUMMARY | 2021-10-28 15:12 | XMS_ITS | Encounter Summary ---
:1990 Author Organization [facility] Address [address] [place] [address] Care Team Providers Name Role Phone Carmela Sanchez MD Primary Care Provider Reason for Visit Reason Onset Date Comments 07/04/2010 +HOME TEST 07/03,WANT S CONFIRMATION Encounter Details Date Type Department Care Team Description 07/04/2010 Telephone [facility] Romana Andersen RN Pregn curt (+HOME TEST Women's Services - Main 07/03 ,WANTS CONFIRMATION) [place] [address] [place] [phone] Social History Tobacco Use Types Packs/Day Years [...] Sig Dispensed Refills Start Date End Date multivitamin Take 1 Tab by mouth 90 Tab 3 07/0407/04/2010 vit-iron fumarate-FA daily. ( PLUS, CALCIUM CARB,) 27-1 mg Tab tablet documented in this encounter Miscellaneous Notes Telephone Encounter - Romana Andersen RN - 07/04/2010 1209 EDT TC from patient requesting appointment for confirmation of . +home test last night and today. H/O chlamydia and was told she might not get . LMP 05/22/10. Rx for PNV escribed to [facility]. documented in this encounter Plan of Treatment Not on filedocumented as of this encounter Visit Diagnoses Not on filedocumented in this encounter Care Teams Machinery Rigger Relationship Specialty Start Date End Date Carmela Sanchez MD PCP - General 07/30/08 08/13/[address] [place] [phone] documented as of this encounter
--- OUTSIDE RECORDS SUMMARY | 2021-10-28 15:12 | XMS_ITS | Encounter Summary ---
:[address] [facility] Address [address] [place] [address] Care Team Providers Name Role Phone Carmela Sanchez MD Primary Care Provider Reason for Visit Reason Onset Date Comments Pharyngitis 09/22/2010 Encounter Details Date Type Department Care Team Description 09/22/2010 Telephone [facility] Women's Services Romana Andersen RN Pharyngitis - [facility] [address] [place] [address] Social History Tobacco Use Types [...] Telephone Encounter - Romana Andersen RN - 09/22/2010 7660 EDT TC from patient asking to be seen for sore throat. Went to ER around 3 this morning and said she wastold she probably had an infection but they didn't know what to give her since she was . Says there was no throat culture or labs done. No notes in [facility] yet. Advised to be seen at PCP office today for evaluation and treatment. documented in this encounter Plan of Treatment Not on filedocumented as of this encounter Visit Diagnoses Not on filedocumented in this encounter Care Teams Exceptional Student Education Teacher Relationship Specialty Start Date End Date Carmela Sanchez MD PCP - General 07/30/08 08/13/[address] [place] [phone] documented as of this encounter
--- OUTSIDE RECORDS SUMMARY | 2021-10-28 15:12 | XMS_ITS | Encounter Summary ---
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 second intervals without stimulation at flash frequencies between 1 to 20 Hz and then downward from 60 to 25 Hz. This stimulus produces a symmetric occipital driving response and no abnormal responses. 4. Stage 1 and stage 2 sleep recorded. Impression: Normal EEG. Clinical Correlation: No interictal epil eptiform discharges recorded during this study to help support a diagnosis of epilepsy, though their absence does not exclude this diagnosis. If a clinical concern of epilepsy remains consideration of a repe at EEG with partial sleep deprivation and/or an ambulatory EEG recording could be considered. EDDI OBRIEN MD Clinical Neurophysiology Fellow. 12:29 11/22/2010 I personally reviewed the study and the fellow's interpretation in detail, edited the above report and agree with the findings documented. COLIN MCKENNA MD Diplomate, [place] [employer] - Neurology with added qualifications in clinical neurophysiology. 15:46 11/22/2010 Performing Organization Address [facility]/ZIP Code Phon e Number [facility] POINT OF CARE POINT OF CARE INPATIENT ADD-ON (11/22/2010 10:55 EDT) Pathologist Sig nature Tests to be added Urine Drug [facility] Screen Number for problems 01652 [facility] Accession number TOLD SANNA MBharati NO [facility] URINE TO ADD UDS ON TO 1103AM 11/22/10 Specimen Performing Organization Address [facility] Phon e Number [facility] [address] [place] [address] SERVICES [facility] [address] [place] [address] INPATIENT ADD-ON (11/21/2010 21:20 EDT) Pathologist Sig nature Tests to be added Calcium [facility] Number for problems [id number] [facility] Accession number [id number] [facility] Specimen Performing Organization Address [facility] Phon e Number [facility] [address] [place] [address] SERVICES [facility] [address] [place] [address] (ABNORMAL) CALCIUM (11/21/2010 21:00 EDT) Pathologist Sig nature Calcium 8.1 (L) 8.5 - 10.5 mg/dl [facility] Calculated Calcium 9.6 8.5 - 10.5 mg/dl [facility] Specimen Performing Organization Address [facility] Phon e Number [facility] [address] [place] [address] SERVICES [facility] [address] [place] [address] (ABNORMAL) CK MB WITH TOTAL CK (11/21/2010 21:00 EDT) Pathologist Sig nature CK 154 (H) 30 - 135 U/L [facility] MB 2.5 0 - 5.0 ng/ml [facility] CK-MB Index Not calculated, 0 - 2.5 [facility] normal MB. Specimen Blood specimen (specimen) Performing Organization Address City/State/ZIP Code Phon e Number [facility] [address] [place] [address] SERVICES [facility] [address] [place] [address] MR HEAD WO CONTRAST (11/21/2010 20:32 EDT) Anatomical Region Laterality Modality Other Specimen Narrative [facility] - 11/22/2010 7:10 EDT MRI of the brain November 21, 2010 at 1931. History: Seizure. Comparison: September 15, 2009. Technique: Sagittal T1, axial T2, axial T2 FLAIR, axial gradient, axial T1, coronal T2, coronal T2 FLAIR, coronal T1, coronal inversion recovery, and diffusion-weighted images of the brain were acquired. Findings: The study is mildly degraded b y motion. There is no restricted diffusion present to suggest recent acute ischemia. No intracranial mass, mass effect, or midli ne shift is identified. There are no extra-axial collections. The vent ricles are normal in size and shape. The basal cisterns are patent. Th e orbits appear unremarkable. The paranasal sinuses and mastoids are c lear. Dedicated imaging through the temporal l obes was performed. Again, the sequences are degraded by motion. Th e temporal lobes are grossly symmetric in size. The temporal horns of the lateral ventricles also are symmetric. There is no abnormal FLAI R signal within the hippocampal formations or within the par ahippocampal gyrus. The hippocampal formations are symmetric. Impression: 1. Unremarkable examination of the tempo ral lobes. 2. No acute intracranial abnormality. Procedure Note 11/22/2010 MRI of the brain November 21, 2010 at 1931 . History: Seizure. Comparison: September 15, 2009. Technique: Sagittal T1, axial T2, axial T2 FLAIR, axial gradient, axial T1, coronal T2, coronal T2 FLAIR, coronal T1, coronal inversion recovery, and diffusion-weighted images of the brain were acquired. Findings: The study is mildly degraded b y motion. There is no restricted diffusion present to suggest recent acute ischemia. No intracranial mass, mass effect, or midli ne shift is identified. There are no extra-axial collections. The vent ricles are normal in size and shape. The basal cisterns are patent. Th e orbits appear unremarkable. The paranasal sinuses and mastoids are c lear. Dedicated imaging through the temporal l obes was performed. Again, the sequences are degraded by motion. Th e temporal lobes are grossly symmetric in size. The temporal horns of the lateral ventricles also are symmetric. There is no abnormal FLAI R signal within the hippocampal formations or within the par ahippocampal gyrus. The hippocampal formations are symmetric. Impression: 1. Unremarkable examination of the tempo ral lobes. 2. No acute intracranial abnormality. Performing Organization Address City/State/ZIP Code Phon e Number [facility] INPATIENT ADD-ON (11/21/2010 19:05 EDT) Tests to be added Electrolytes,Magnesium,Phosphorous F [facility] ??Corrected on 11/21 AT 1927: Previously reported as ?? Electrolytes,Magnesium,[place] [id number] [facility] problems Accession number [id number], informed [email or web address] CAN NOT ADD ON [facility] NEEDS A GREEN TOP TUBE, PATIENT [facility] ?? WILL NEED TO BE RECOLLECTED AND A NE W ORDER PLACED INTO PRISM 11/21/10@1918 ?? LMT Specimen Performing Organization Address City/State/ZIP Code Phon e Number [facility] [address] [place] [address] SERVICES [facility] [address] US FOLLOW-UP OB (11/21/2010 17:37 EDT) Anatomical Region Laterality Modality Other Specimen Narrative [facility] - 11/21/2010 17:42 EDT Indication: Maternal disease: new onset seizure. History: Age: 20 years. : 1 Para: 0. LMP not sure. Current : Pre- data: Weight 165 lbs. Height 5 ft 5 ins. BMI 27.5. Dating: Previous Scan on: 08/03/2010 EDC: 2010 GA by prev. scan: 28w5d Current Scan on: 11/21/2010 EDC: 011 GA by current scan: 28w2d Best Overall Assessment: 09/12/2010 EDC: 02/08/2011 Assessed GA: 28w5d The calculation of the gestational age b y current scan was based on BPD, HC, AC, FL and HUM. The Best Overall Assessment is based on an earlier assessment on 08/03/2010. General Evaluation: heart activity: Present. hea rt rate: 146 bpm. Presentation: cephalic, maternal left. movement: visible. Amniotic Fluid: Normal. NENA ??18.2 cm. Placenta: Posterior. Anatomy Scan: Ricks gestation. Biometry: BPD 71.9 mm 42nd% 28w6d (28w1d to 29w4d) HC 260.3 mm 11th% 28w2d (26w2d to 30w3d) AC 254.1 mm 70th% 29w4d (28w6d to 30w2d) FL 52.3 mm 14th% 27w6d (25w5d to 30w0d) OFD 89.8 mm 10th% 27w1d HUM 45.2 mm 8th% 26w4d LLV 2.5 mm HC/AC Ratio 1.024 ??14th% FL/AC Ratio 0.206 ??n/a BPD/FL Ratio 1.375 ??37th% EFW (lbs/oz) 2 lbs 14 ozs EFW (g) 1294 g ??42nd% Anatomy: Head: head shape appears normal. Gastrointestinal Tract: Stomach appears normal. Kidneys / Adrenal Glands: Bilateral kidn eys appear normal. Report Summary: Impression: [id number] Follow-up obstetrical ultrasound This is a ricks gestation. biometry is consistent with prior dating. The EFW is about 40% on the [place] hybrid curve. Except where noted above, the axel cinthya was not reviewed in detail as this is a follow-up study and the anatomy was previously assessed. Normal fluid and movement are note d. Recommendations: Follow-up as clinically indicated. Procedure Note 11/21/2010 Indication: Maternal disease: new onset seizure. History: Age: 20 years. : 1 Para: 0. LMP not sure. Current : Pre- data: Weight 165 lbs. Height 5 ft 5 ins. BMI 27.5. Dating: Previous Scan on: 08/03/2010 EDC: 2010 GA by prev. scan: 28w5d Current Scan on: 11/21/2010 EDC: 011 GA by current scan: 28w2d Best Overall Assessment: 09/12/2010 EDC: 02/08/2011 Assessed GA: 28w5d The calculation of the gestational age b y current scan was based on BPD, HC, AC, FL and HUM. The Best Overall Assessment is based on an earlier assessment on 08/03/2010. General Evaluation: heart activity: Present. hea rt rate: 146 bpm. Presentation: cephalic, maternal left. movement: visible. Amniotic Fluid: Normal. NENA 18.2 cm. Placenta: Posterior. Anatomy Scan: Ricks gestation. Biometry: BPD 71.9 mm 42nd% 28w6d (28w1d to 29w4d) HC 260.3 mm 11th% 28w2d (26w2d to 30w3d) AC 254.1 mm 70th% 29w4d (28w6d to 30w2d) FL 52.3 mm 14th% 27w6d (25w5d to 30w0d) OFD 89.8 mm 10th% 27w1d HUM 45.2 mm 8th% 26w4d LLV 2.5 mm HC/AC Ratio 1.024 14th% FL/AC Ratio 0.206 n/a BPD/FL Ratio 1.375 37th% EFW (lbs/oz) 2 lbs 14 ozs EFW (g) 1294 g 42nd% Anatomy: Head: head shape appears normal. Gastrointestinal Tract: Stomach appears normal. Kidneys / Adrenal Glands: Bilateral kidn eys appear normal. Report Summary: Impression: [id number] Follow-up obstetrical ultrasound This is a ricks gestation. biometry is consistent with prior dating. The EFW is about 40% on the [place] hybrid curve. Except where noted above, the axel cinthya was not reviewed in detail as this is a follow-up study and the anatomy was previously assessed. Normal fluid and movement are note d. Recommendations: Follow-up as clinically indicated. Performing Organization Address City/[facility] Phon e Number [facility] MATERNAL MEDICINE [facility] RADIOLOGY (ABNORMAL) CALCIUM (11/21/2010 15:35 EDT) Pathologist Sig nature Calcium 8.2 (L) 8.5 - 10.5 mg/dl [facility] Calculated Calcium 9.9 8.5 - 10.5 mg/dl [facility] Specimen Performing Organization Address [facility] Phon e Number [facility] [address] [place] [id number] SERVICES [facility] [address] [place] [address] PHOSPHORUS (11/21/2010 15:35 EDT) Pathologist Sig nature Phosphorus 3.1Comment: Add 2.5 - 4.5 mg/dl [facility] on order Specimen Performing Organization Address [facility]/[place]IP [facility] [place] [facility] [address] [place] [address] SERVICES [facility] [address] [place] [address] MAGNESIUM (11/21/2010 15:35 EDT) Pathologist Sig nature Magnesium 1.8Comment: Add on 1.7 - 2.8 mg/dl [facility] order Specimen Performing Organization Address [facility] Phon e Number [facility] [address] [place] [address] SERVICES [facility] [address] [place] [address] ELECTROLYTES (11/21/2010 15:35 EDT) Pathologist Sig nature Sodium 138Comment: Add on 136 - 145 mEq/L [facility] order Potassium 4.1Comment: Add on 3.5 - 5.0 mEq/L [facility] order Chloride 106Comment: Add on 96 - 110 mEq/L [facility] order CO2 25Comment: Add on 24 - 32 mEq/L [facility] order Specimen Performing Organization Address City/[facility]/ZIP Code Phon e Number [facility] [address] [place] [address] SERVICES [facility] [address] [place] [address] BILE ACIDS, TOTAL (11/21/2010 15:35 EDT) Bile Acids Total, 2Reference range: <=10 [facility]ANO N S Unit: mcmol/L LAB Performed by: [facility] [place] [facility], [address], [place], ?? [place] [address], Cataloging Assistant: Sunitha Willis, Ph.D. Specimen Blood specimen (specimen) Performing Organization Address City/[facility]/ZIP Code Phon e Number [facility] [address] [place] [address] SERVICES [facility] [address] [place] [address] LDH (11/21/2010 15:35 EDT) Pathologist Sig nature LDH 423 313 - 618 U/L [facility] Specimen Blood specimen (specimen) Performing Organization Address City/State/ZIP Code Phon e Number [facility] [address] [place] [address] SERVICES [facility] [address] [place] [address] ALT (11/21/2010 15:35 EDT) Pathologist Sig nature ALT <11 9 - 52 U/L [facility] Specimen Blood specimen (specimen) Performing Organization Address City/[facility]/ZIP Code Phon e Number [facility] [address] [place] [address] SERVICES [facility] [address] [place] [address] AST (11/21/2010 15:35 EDT) Pathologist Sig nature AST 20 15 - 46 U/L [facility] Specimen Blood specimen (specimen) Performing Organization Address City/[facility]/ZIP Code Phon e Number [facility] [address] [place] [address] SERVICES [facility] [address] [place] [address] URIC ACID (11/21/2010 15:35 EDT) Pathologist Sig nature Uric Acid 3.1 2.2 - 7.7 mg/dl [facility] Specimen Blood specimen (specimen) Performing Organization Address City/State/ZIP Code Phon e Number [facility] [address] [place] [address] SERVICES [facility] [address] [place] [address] (ABNORMAL) CREATININE (11/21/2010 15:35 EDT) Pathologist Sig nature Creatinine 0.50 (L) 0.7 - 1.5 mg/dl [facility] GFR, Calculated >60 ml/min/1.73m2 [facility] Specimen Blood specimen (specimen) Performing Organization Address City/[facility]/ZIP [facility] [place] e Number [facility] [address] [place] [address] SERVICES [facility] [address] [place] [address] (ABNORMAL) HEMAGRAM (11/21/2010 15:35 EDT) Pathologist Sig nature WBC 13.02 (H) 4.0 - 12.4 K/cmm [facility] RBC 3.55 (L) 3.86 - 5.04 M/cmm [facility] Hemoglobin 12.0 11.6 - 15.2 gm/dl [facility] HCT 34.4 (L) 34.9 - 44.4 % [facility] MCV 97 81 - 98 fl [facility] MCH 33.7 (H) 26.7 - 33.3 pg [facility] MCHC 34.8 32.1 - 35.9 gm/dl [facility] PLT 182 141 - 320 K/cmm [facility] RDW-CV 13.9 11.7 - 14.6 % [facility] Specimen Blood specimen (specimen) Performing Organization Address [facility]/ZIP [facility] [place]on e Number [facility] [address] [place] [address] SERVICES [facility] [address] [place] [address] TYPE AND SCREEN (11/21/2010 15:30 EDT) Pathologist Sig nature ABO O [facility] Rh Factor Positive [facility] Antibody Screen NegativeComment: [facility] SAMPLE EXPIRES 11/24/10 AT 2359 Specimen Blood specimen (specimen) Performing Organization Address [facility] Phon e Number [facility] [address] [place] [address] SERVICES [facility] [address] [place] [address] (ABNORMAL) POCT URINE DIPSTICK (11/21/2010 11:38 EDT) Color YELLOW [facility] Clarity, UA CLOUDY [facility] Glucose Neg NEG [facility] Bilirubin Neg NEG [facility] Ketones Neg NEG [facility] Specific [place] 1.025 1.001 - 1.035 [facility] Blood Neg NEG [facility] pH 7.5 4.6 - 8.0 [facility] Protein 1+ (A) NEG [facility] Urobilinogen 0.2 0.2 - 1.0 [facility] E.U./dl LAB Nitrite Neg NEG [facility] Leuk Esterase Neg NEG [facility] barrel liner ID [id number] [facility] Test Performed by Nursing Services LAB Specimen Urine (substance) Performing Organization Address [facility] Phon e Number [facility] [address] [place] [address] SERVICES [facility] [address] [place] [address] ED/WICC ADD-ON (11/21/2010 10:45 EDT) Pathologist Sig nature Tests to be added Magnesium [facility] Number for problems [id number] (ED) [facility] Specimen Performing Organization Address [facility]/ZIP [facility] [place]on e Number [facility] [address] [place] [address] SERVICES [facility] [address] [place] [address] MAGNESIUM (11/21/2010 10:31 EDT) Pathologist Sig nature Magnesium 1.8 1.7 - 2.8 mg/dl [facility] Specimen Performing Organization Address City/[facility]/ZIP Code Phon e Number [facility] [address] [place] [address] SERVICES [facility] [address] [place] [address] (ABNORMAL) HCG (11/21/2010 10:31 EDT) Pathologist Sig nature HCG 9473 (H) <4 mIU/ml [facility] Comment: Reference Range: Positive = >10 Borderli ne = 4-10 ??recommend repeat. Negative = <4 Specimen Blood specimen (specimen) Performing Organization Address City/[facility]/ZIP Code Phon e Number [facility] [address] [place] [address] SERVICES [facility] [address] [place] [address] HOLD BLUE TOP (11/21/2010 10:31 EDT) Pathologist Sig nature Hold Blue Top Sample for [facility] coagulation will be discarded after 4 hours Specimen Blood specimen (specimen) Performing Organization Address City/[facility]/ZIP Code Phon e Number [facility] [address] [place] [address] SERVICES [facility] [address] [place] [address] (ABNORMAL) LIVER FUNCTION TESTS (11/21/2010 10:31 EDT) Pathologist Sig nature Albumin 3.1 (L) 3.4 - 4.9 g/dl [facility] Total Protein 6.2 (L) 6.5 - 8.3 g/dl [facility] Total Alkaline 109 38 - 126 U/L [facility] Phosphatase ALT 13 9 - 52 U/L [facility] AST 21 15 - 46 U/L [facility] Unconjugated Bilirubin 0.3 0.1 - 1.1 mg/dl [facility] Conjugated Bilirubin 0.0 0.0 - 0.3 mg/dl [facility] B Bilirubin, Total <0.5 0.2 - 1.3 mg/dl [facility] Specimen Blood specimen (specimen) Performing Organization Address City/[facility]/ZIP Code Phon e Number [facility] [address] [place] [address] SERVICES [facility] [address] [place] [address] GLUCOSE, SERUM (11/21/2010 10:31 EDT) Pathologist [facility] Glucose, Serum 71 70 - 100 mg/dl [facility] Specimen Blood specimen (specimen) Performing Organization Address [facility]/ZIP Code Phon e Number [facility] [address] [place] [address] SERVICES [facility] [address] [place] [address] (ABNORMAL) CREATININE (11/21/2010 10:31 EDT) Pathologist [facility] Creatinine 0.50 (L) 0.7 - 1.5 mg/dl [facility] GFR, Calculated >60 ml/min/1.73m2 [facility] Specimen Blood specimen (specimen) Performing Organization Address [facility]/ZIP Code Phon e Number [facility] [address] [place] [address] SERVICES [facility] [address] [place] [address] (ABNORMAL) BUN (11/21/2010 10:31 EDT) Pathologist Sig [facility] BUN 5 (L) 10 - 26 mg/dl [facility] Specimen Blood specimen (specimen) Performing Organization Address City/[facility]/ZIP [facility] Phon e Number [facility] [address] [place] [address] SERVICES [facility] [address] [place] [address] (ABNORMAL) HEMAGRAM AND DIFFERENTIAL (11/21/2010 10:31 EDT) Pathologist Sig [facility] WBC 11.96 4.0 - 12.4 K/cmm [facility] RBC 3.73 (L) 3.86 - 5.04 M/cmm [facility] Hemoglobin 12.7 11.6 - 15.2 gm/dl [facility] HCT 35.9 34.9 - 44.4 % [facility] MCV 96 81 - 98 fl [facility] MCH 34.1 (H) 26.7 - 33.3 pg [facility] MCHC 35.4 32.1 - 35.9 gm/dl [facility] PLT 191 141 - 320 K/cmm [facility] RDW-CV 13.9 11.7 - 14.6 % [facility] Neutrophils 84.2 (H) 45.5 - 79.7 % [facility] Lymphocytes 10.4 (L) 15.0 - 46.8 % [facility] Monocytes 4.7 1.8 - 12.0 % [facility] Eosinophils 0.7 0.6 - 6.9 % [facility] Basophils 0.0 (L) 0.2 - 1.4 % [facility] ABS Neutrophils 10.09 (H) 2.20 - 8.85 K/cmm [facility] ABS Lymphs 1.24 1.09 - 3.30 K/cmm [facility] ABS Monocytes 0.56 0.1 - 0.8 K/cmm [facility] ABS Eosinophils 0.08 0.03 - 0.61 K/cmm [facility] ABS Basophils 0.00 (L) 0.01 - 0.11 K/cmm [facility] Type of Diff: Automated [facility] Specimen Blood specimen (specimen) Performing Organization Address City/State/ZIP Code Phon e Number [facility] [address] [place] [address] SERVICES [facility] [address] [place] [address] documented in this encounter Visit Diagnoses Diagnosis GERD (gastroesophageal reflux disease) Esophageal reflux documented in this encounter Administered Medications Inactive Administered Medications - up to 3 most recent administrations Medication Order MAR Action Action Date Dose Rate Site acetaminophen (TYLENOL) tablet 650 Given 11/21/2010 10:43 EDT 65 0 mg mg 650 mg, oral, NOW X1, 1 dose, On Sun11/21/10 at 1045, STAT docusate sodium (COLACE) capsule 100 mg Given 11/22/2010 8:35 EDT 100 mg 100 mg, oral, 2 TIMES DAILY PRN, Starting on Sun11/21/10 at 2056, Until Sun11/22/10 at 1757, Constipation, Routine Given 11/21/2010 22:15 EDT 100 mg multivitamin vit-iron fumarate-FA Given 11/22 8:32 EDT 0.5 Tablets (STUARTNATAL) 27-1 mg tablet 1 Tab 1 Tablet, oral, DAILY, First dose on Sun11/22/10 at 0900, Until Discontinued, Routine Given 11/21/2010 22:15 EDT 0.5 Tablets omeprazole (PRILOSEC) capsule 20 mg Given 11/22/2010 8:32 EDT 20 mg 20 mg, oral, EVERY 12 HOURS, First dose on Sun11/21/10 at 2115, Until Discontinued, Routine Given 11/21/2010 22:15 EDT 20 mg ondansetron (PF) (ZOFRAN) injection 4 mg Given 11/21/2010 10:43 EDT 4 mg 4 mg, intravenous, NOW X1, 1 dose, On Sun11/21/10 at 1045, STAT oxycodone (ROXICODONE) 5 mg immediate re lease tablet 1 dose, Starting on Sun11/21/10 at 1903, Until 11/07 at 1907 oxycodone (ROXICODONE) immediate release tablet 5 Given 11/21/2010 19:07 EDT 5 mg mg 5 mg, oral, ONCE, 1 dose, Starting on Sun11/21/10 at 1915, Until Sun11/21/10 at 1907, Routine sodium chloride (NS) 0.9 % 1,000 mL BOLU S Given 11/21/2010 12:08 EDT 1,000 mL 1,000 mL, intravenous, ONCE, 1 dose, Starting on Sun11/21/10 at 1230, Until Sun11/21/10 at 1208, STAT terbinafine (LAMISIL) 1 % cream Given 11/22/2010 8:31 EDT topical (top), 2 TIMES DAILY, First dose on Sun11/21/10 at 2115, Until Discontinued Given 11/21/2010 22:15 EDT tocopheryl acetate (Vitamin E) capsule 100 Given 11/22/2010 8:31 EDT 100 Units Units 100 Units, oral, DAILY, First dose on Sun11/22/10 at 0900, Until Discontinued, Routine documented in this encounter Active and Recently Administered Medications Times are shown in EDT. Scheduled Medication Order 11/20/2010 11/21/2010 11/22/2010 acetaminophen (TYLENOL) tablet 650 mg (COMPLETED) 1043 (Given - Provider: Allan Walden RN) 650 mg, Oral, NOW X1, 1 dose, Sun11/21/10 at 1045 multivitamin vit-iron fumarate- FA (STUARTNATAL) 27-1 mg tablet 1 Tab (CANCELED) 2214 (Given - Provider: Mich Whiting RN - Comment: per pt request- 1/2 tab in pm and 1/2 tab in am) 0832 (Given - Provider: Mandie Person, KELSI - Comment: pt takes .5 of tablet bid) 1 Tab, Oral, DAILY, First dose on Sun11/22/10 at 0900, Until Dis continued omeprazole (PRILOSEC) capsule 20 mg (CANCELED) 2214 (Given - Provider: Megan Whiting, KELSI) 08 (Given - Provider: Mandie clark, KELSI) 20 mg, Oral, EVERY 12 HOURS, First dose on Sun11/21/10 at 2115, Until Discontinued ondansetron (PF) (ZOFRAN) injection 4 mg (COMPLETED) 1043 (Given - Provider: Allan Walden, KELSI) 4 mg, Intravenous, NOW X1, 1 dose, Sun11/21/10 at 1045 oxycodone (ROXICODONE) immediate release tablet 5 mg (COMPLE RITA) 1907 (Given - Provider: Mandie Person, KELSI) 5 mg, Oral, ONCE, 1 dose, First dose on Sun11/21/10 at 1915 sodium chloride (NS) 0.9 % 1,000 mL BOLUS (COMPLETED) 1208 (Given - Provider: Allan Walden, RN) 1,000 mL, Intravenous, ONCE, 1 dose, First dose on Sun11/21/10 a t 1230 terbinafine (LAMISIL) 1 % cream (CANCELED) 2214 (Given - Provider: Megan Whiting RN) 0831 (Given - Provider: Mandie clark, KELSI) Topical, 2 TIMES DAILY, First dose on Sun11/21/10 at 2115, Until Discontinued tocopheryl acetate (Vitamin E) capsule 100 Units (CANCELED) 0831 (Given - Provider: Mandie Person, KELSI) 100 Units, Oral, DAILY, First dose on Sun11/22/10 at 0900, Until Discontinued PRN Medication Order 11/20/2010 11/21/2010 11/22/2010 docusate sodium (COLACE) capsule 100 mg (CANCELED) 2215 (Given - Provider: Megan Whiting, RN) 0885 (Given - Provider: Mandie clark, KELSI) 100 mg, Oral, 2 TIMES DAILY PRN, Startin g 11/21/10 at 2056, Until Sun11/22/10 at 1757, Constipation documented in this encounter Orders Medications Ordered That Might Not Have Count Last Ord ered Date First Ordered Date Been Administered acetaminophen (TYLENOL) tablet 325-650 mg 1 2010 HYDROmorphone (DILAUDID) tablet 2 mg 1 11/21/2010 lactated ringers (LR) infusion 1 11/21/2010 Vit-Iron Fumarate-FA 28-0.8 mg 1 11/22/19 11 Tab 1 Tab Nursing Count Last Ordered Date First Ordered Date INSERT SALINE LOCK 1 11/21/2010 Admission Count Last Ordered Date First Ordered Date NOTIFY PPS OF ROOM CHANGE COMPLETE 1 11/22/2010 ADMIT TO INPATIENT 1 11/21/2010 ADMIT TO OBSERVATION 1 11/21/2010 ADMITTING CONDITION 1 11/21/2010 PPS NOTIFICATION OF PATIENT ARRIVAL ON 1 UNIT TEACHING SERVICE 1 11/21/2010 Discharge Count Last Ordered Date First Ordered Date DISCHARGE PATIENT 1 11/22/2010 documented in this encounter Care Teams 

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
--- OUTSIDE RECORDS SUMMARY | 2021-10-28 15:12 | XMS_ITS | Encounter Summary ---
:1990 Author Organization [facility] Address [address] [place] [address] Care Team Providers Name Role Phone Carmela Sanchez MD Primary Care Provider Reason for Visit Reason Onset Date Comments Urinary Frequency 05/21/2010 Encounter Details Date Type Department Care Team Description 05/21/2010 Telephone [facility] Ramon [place] MD Urinary Frequency Family Medicine - [facility] [place] [address] [phone] Social History Tobacco Use Types Packs/Day Years [...] this encounter Miscellaneous Notes Telephone Encounter - Aleja [place]. - 05/21/2010 0716 EST Renetta calling because she lost control of her bladder today. She had a feeling of needing to usethe bathroom when all of a sudden she had a lot of pain and little warning. She felt an urgent need to urinate and lost control without being able to make it to the bathroom. For the past 2 weeks she'shad a lot of frequency, but no burning or pain with urination. She has a h/o UTIs, but this is different. She describes bladder pain and states her rib cage hurts. No leg pain or burning into her legs. No saddle numbness. She's felt as though she's had an allergic reaction in her legs and back with itchingbut no rash. She's also had problems with her lower back for the past few months for which she's been going to PT. Possible weakness in her legs when she stands up after sitting down for a long time asshe states her boyfriend has to help her stand up. No new medications. No fever. Went to work today. Told patient she should go to the ED, however she requested the WICC, which would also be appropriate for evaluation as this sounds more like UTI and less like cauda equina syndrome. documented in this encounter Plan of Treatment Not on filedocumented as of this encounter Visit Diagnoses Not on filedocumented in this encounter Care Teams Coke Crane Operator Relationship Specialty Start Date End Date Carmela Sanchez MD PCP - General 07/30/08 08/13/[address] [place] [phone] documented as of this encounter
--- OUTSIDE RECORDS SUMMARY | 2021-10-28 15:12 | XMS_ITS | Encounter Summary ---
:1990 Author Organization [facility] Address [address] [place] [address] Care Team Providers Name Role Phone Carmela Sanchez MD Primary Care Provider Reason for Referral Consult, Test and Treat (Routine) - Closed Specialty Diagnoses / Procedures Referred By Contact Refer red To Contact Rehab Therapies Diagnoses Sciatica Jie Robbins APRN [address] [address] [address], [address] [place], [place] Fax: [phone] Referral ID Status Reason Start Date Expiration Date Visits V isits Requested Authorized [id number] Closed Specialty 09/12/2010 1 1 Services Required Question Answer Reason for Request: Currently 18w5d - h x coccyx pain and currently pain down R leg Reason for Visit Reason Comments Routine Visit Encounter Details Date Type Department Care Team Description 09/12/2010 Routine [facility] Jie Robbins APRN [place]: 18w5d Women's Services - [facility] [address] [address] [address], [place] [phone] (Wo rk) Social History Tobacco [...] Sign Reading Time Taken Comments Blood Pressure 102/64 09/12/2010 1837 EDT Pulse - - Temperature - - Respiratory Rate - - Oxygen Saturation - - Inhaled Oxygen Concentration - - Weight 77.9 kg (171 lb 12.8 oz) 09/12/2010 1837 EDT Height - - Body Mass Index 28.59 07/22/2010 1100 EDT documented in this encounter Ordered Prescriptions Prescription Sig Dispensed Refills Start Date End Date omeprazole (PRILOSEC) 20 Take 1 Cap by mouth 180 Cap 4 01/04/2011 mg capsuleIndications: every 12 hours. GERD (gastroesophageal reflux disease) documented in this encounter Progress Notes Jie Robbins CNM - 09/12/20102027 EDT Subjective: Renetta Bradley is being seen today for her obstetrical visit. She is at18 and 5/7 weeks gestation.Patient reports needs refill on prilosec and has coccyx pain that radiates down R leg . Movement: normal. Objective: BP 102/64 Wt 77.928 kg (171 lb 12.8 oz) LMP 05/22/2010 Uterine Size: 18 FHR - 140 Pelvic Exam: Assessment: 18 and 5/7 weeks GERD Sciatic pain Plan: Problem list reviewed and updated. Order prilosec electronically and PT consult F/U 4 weeks documented in this encounter Plan of Treatment Scheduled Referrals Name Type Priority Associated Diagnoses Order S chedule AMB CONSULT Outpatient Referral Routine Sciatica Ordered: PHYSICAL THERAPY 09/12/2010 documented as of this encounter Visit Diagnoses Diagnosis GERD (gastroesophageal reflux disease) - Primary Esophageal reflux Sciatica documented in this encounter Discontinued Medications Medication Sig Discontinue Reason Start Date End Date omeprazole (PRILOSEC) 20 Take 1 Cap by mouth Reorder 0 09/12/2010 mg capsuleIndications: daily. GERD (gastroesophageal reflux disease) documented as of this encounter Care Teams Sex Worker Or Escort Relationship Specialty Start Date End Date Carmela Sanchez MD PCP - General 07/30/08 08/13/[address] [place] [address] [phone] documented as of this encounter
--- OUTSIDE RECORDS SUMMARY | 2021-10-28 15:12 | XMS_ITS | Encounter Summary ---
:1990 Author Organization [facility] Address [address] [place] [address] Care Team Providers Name Role Phone Carmela Sanchez MD Primary Care Provider Encounter Details Date Type Department Care Team Description 07/20/2010 Orders Only [facility] Romana Andersen RN Other specified complication, antepartum; [facility] Sup rvision of other normal [facility] [address] [place] [phone] Social History Tobacco Use Types Packs/Day [...] on filedocumented as of this encounter Results PROFILE AND VARICELLA (07/22/2010 12:30 EDT) WBC 10.31 4.0 - 12.4 [facility] K/cm LAB RBC 4.17 3.86 - 5.04 [facility] M/cm LAB Hemoglobin 13.6 11.6 - 15.2 [facility] gm/dl LAB HCT 39.3 34.9 - 44.4 % [facility] MCV 94 81 - 98 fl [facility] MCH 32.6 26.7 - 33.3 [facility] pg LAB MCHC 34.7 32.1 - 35.9 [facility] gm/dl LAB PLT 169 141 - 320 [facility] K/cmm LAB RDW-CV 13.6 11.7 - 14.6 % [facility] Neutrophils 74.3 45.5 - 79.7 % [facility] Lymphocytes 18.1 15.0 - 46.8 % [facility] Monocytes 6.0 1.8 - 12.0 % [facility] Eosinophils 1.3 0.6 - 6.9 % [facility] Basophils 0.3 0.2 - 1.4 % [facility] ABS Neutrophils 7.65 2.20 - 8.85 [facility] K/[facility] LAB ABS Lymphs 1.87 1.09 - 3.30 [facility] K/[facility] LAB ABS Monocytes 0.62 0.1 - 0.8 [facility] K/[facility] LAB ABS Eosinophils 0.14 0.03 - 0.61 [facility] K/[facility] LAB ABS Basophils 0.03 0.01 - 0.11 [facility] K/[facility] LAB Type of Diff: Automated [facility] ABO and Rh Type O POS [facility] Antibody Screen Neg [facility] Hepatitis B Surface Negative Reference [facility] Ag Range: Negative LAB Rubella IgG Ab Positive Positive [facility] results suggest LAB immunity to Rubella infection. Varicella IgG Ab Positive [facility] Syphilis Serology Interpretation: [facility] Nonreactive LAB Reference Range: Nonreactive Specimen Blood specimen (specimen) Performing Organization Address City/State/ZIP Code Phon e Number [facility] [address] [place] [address] SERVICES [facility] [address] [place] [address] HIV ANTIBODY (07/22/2010 12:30 EDT) HIV 1/2 Antibody Negative Reference [facility] Range: Negative Specimen Blood specimen (specimen) Performing Organization Address City/[facility]/ZIP Code Phon e Number [facility] [address] [place] [address] SERVICES [facility] [address] [place] [address] BACTERIAL CULTURE, URINE (07/22/2010 12:30 EDT) Pathologist [facility] Specimen Description Urine [facility] Result Less than 10,000 [facility] CFU/ml Gram positive organism Report Status Final [facility] 07/23/2010 Specimen Urine (substance) Performing Organization Address [facility]/ZIP Code Phon e Number [facility] [address] [place] [address] SERVICES [facility] [address] [place] [address] documented in this encounter Visit Diagnoses Diagnosis Other specified complication, antepartum (646.83) Other specified complication, antepartum Supervision of other normal documented in this encounter Care Teams Oyster Culler Relationship Specialty Start Date End Date Carmela Sanchez MD PCP - General 07/30/08 08/13/[address] [place] [phone] documented as of this encounter
--- OUTSIDE RECORDS SUMMARY | 2021-10-28 15:12 | XMS_ITS | Encounter Summary ---
:1991 Author Organization [facility] Address [address] [place] [address] Care Team Providers Name Role Phone Carmela Sanchez MD Primary Care Provider Encounter Details Date Type Department Care Team Description 12/27/2010 Orders Only [facility] Emery, Supervisi on of Women's Services - Main MD Shannan high -risk [place] (Primary Dx) [address] [place] [address] Social History Tobacco Use Types [...] on filedocumented as of this encounter Results GROUP B STREPTOCOCCUS MOLECULAR DETECTION (01/16/2011 15:08 EDT) Group B Streptococcus GROUP B BETA [facility] Molecular Detection STREPTOCOCCAL DNA LAB detected by PCR. Specimen Other (qualifier value) Performing Organization Address City/State/ZIP Code Phon e Number [facility] [address] [place] [address] SERVICES [facility] [address] [place] [address] documented in this encounter Visit Diagnoses Diagnosis Supervision of high-risk - Sonal darling Unspecified high-risk documented in this encounter Care Teams Hospital Medicine Director Relationship Specialty Start Date End Date Carmela Sanchez MD PCP - General 07/30/08 08/13/[address] [place] [address] [phone] documented as of this encounter
--- OUTSIDE RECORDS SUMMARY | 2021-10-28 15:12 | XMS_ITS | Encounter Summary ---
:1990 Author Organization [facility] Address [address] [place] [address] Care Team Providers Name Role Phone Carmela Sanchez MD Primary Care Provider Reason for Visit Reason Comments Routine Visit Encounter Details Date Type Department Care Team Description 08/03/2010 Routine [facility] Jose Brooke MD GA: 13w0d Women's Services - [facility] [address] [place] [phone] [address] [facility] [place] [phone] Social History Tobacco Use Types Packs/Day Years [...] Sign Reading Time Taken Comments Blood Pressure 94/60 08/03/2010 1529 EDT Pulse - - Temperature - - Respiratory Rate - - Oxygen Saturation - - Inhaled Oxygen Concentration - - Weight 75.3 kg (166 lb) 08/03/2010 1529 EDT Height - - Body Mass Index 27.62 07/22/2010 1100 EDT documented in this encounter Progress Notes Jose Brooke - 08/03/2010 1541 EDT U/S today - new EDC 02/08/11 Pos fht on U/S Constipation - stop PNV, add flintsones for folate, d/c iron, stool softners MARIKA chl negative Doing well Declines chromosome screening 18 wk ultrasound ordered Jose Brooke MD documented in this encounter Plan of Treatment Not on filedocumented as of this encounter Procedures Procedure Name Priority Date/Time Associated Diagnosis Comme nts FPC ROUTINE Routine 09/12/2010 18:07 EDT Supervision of carlos arce Results for this first procedure freya cardoso in the results section. documented in this encounter Results FPC ROUTINE (09/12/2010 18:07 EDT) Anatomical Region Laterality Modality Other Specimen Narrative [facility] - 09/12/2010 18:35 EDT Indication: Screening. History: Age: 20 years. : 1 Para: 0. LMP not sure. Current : Pre- data: Weight 165 lbs. Height 5 ft 5 ins. BMI 27.5. Dating: Previous Scan on: 08/03/2010 EDC: 2010 GA by prev. scan: 18w5d Earlier Assessment on: 08/03/2010 EDC: 1 04/10/2010 GA by earlier assessment: 18w5d Best Overall Assessment: 09/12/2010 EDC: 02/08/2011 Assessed GA: 18w5d The Best Overall Assessment is based on an earlier assessment on 08/03/2010. General Evaluation: heart activity: Present. hea rt rate: 145 bpm. Presentation: Sunil breech. movement: visible. Amniotic Fluid: Normal. Cord: 3 Vessels. cord insertion si te: Normal. Placenta: Posterior. Placenta Grade: Gra de 1. Structure: normal. Anatomy Scan: Ricks gestation. Biometry: BPD 40.9 mm 37th% 18w3d (17w6d to 19w0d) HC 152.4 mm 21st% 18w2d (16w5d to 19w5d) AC 135.7 mm 55th% 19w0d (18w2d to 19w5d) FL 26.9 mm 25th% 18w1d (16w3d to 20w0d) OFD 53.3 mm 27th% 18w2d TCD 19.4 mm 70th% 19w2d HUM 25.3 mm 27th% 18w1d VENTRp 5.9 mm n/a CM 3.5 mm 15th% NUCHAL FOLD 3.20 mm HC/AC Ratio 1.123 ??15th% FL/AC Ratio 0.198 ??16th% BPD/FL Ratio 1.520 ??26th% BPD/OFD Ratio 0.767 ??25th% Anatomy: Head: head shape appears normal. Brain: Cerebellum, choroid plexus, ciste rna magna, lateral cerebral ventricles, midline falx and cavum septi pellucidi appear normal. Face: Upper lip appears normal. Spine: Cervical, thoracic, lumbar and sa cral spine appear normal Neck / Skin: No neck masses seen. Thorax: No thoracic abnormalities detect ed. Heart: Four chamber heart and outflow tr acts appear normal. Abdominal Wall: Normal cord insertion in to the abdominal wall is seen. Gastrointestinal Tract: Stomach appears normal. Kidneys / Adrenal Glands: Bilateral kidn eys appear normal. Bladder: bladder appears normal in size and shape. Genitalia: Male fetus. Extremities: Both upper and lower extrem ities are seen. Skeleton: No evidence of skeletal abnorm ality detected. Summary of Ultrasound Findings: Transabdominal US. U/S machine: [employer] 9. U/S view: good. Maternal Structures: Uterus, cervix and both ovaries appear n ormal. Report Summary: Impression: [id number] Obstetrical ultrasound with and maternal evaluation This is a ricks gestation. Biometry is consistent with prior ultras ound dating. Anatomy appears normal as noted above; however, ultrasound cannot detect all anomalies. There is trunk an d extremity movement noted. The amniotic fluid volume appears normal . Recommendations: Follow-up as clinically indicated. Growth Overview: Date GA BPD [mm] HC [mm] AC [mm] FL [mm] HUM [mm] EFW GP 08/03/2010 13 + 0 ... ... ... ... ... .. . ... 09/12/2010 18 + 5 40.9 37th 152.4 21st 1 35.7 55th 26.9 25th 25.3 27th ... ... Procedure Note 09/12/2010 Indication: Screening. History: Age: 20 years. : 1 Para: 0. LMP not sure. Current : Pre- data: Weight 165 lbs. Height 5 ft 5 ins. BMI 27.5. Dating: Previous Scan on: 08/03/2010 EDC: 2010 GA by prev. scan: 18w5d Earlier Assessment on: 08/03/2010 EDC: 1 04/10/2010 GA by earlier assessment: 18w5d Best Overall Assessment: 09/12/2010 EDC: 02/08/2011 Assessed GA: 18w5d The Best Overall Assessment is based on an earlier assessment on 08/03/2010. General Evaluation: heart activity: Present. hea rt rate: 145 bpm. Presentation: Sunil breech. movement: visible. Amniotic Fluid: Normal. Cord: 3 Vessels. cord insertion si te: Normal. Placenta: Posterior. Placenta Grade: Gra de 1. Structure: normal. Anatomy Scan: Ricks gestation. Biometry: BPD 40.9 mm 37th% 18w3d (17w6d to 19w0d) HC 152.4 mm 21st% 18w2d (16w5d to 19w5d) AC 135.7 mm 55th% 19w0d (18w2d to 19w5d) FL 26.9 mm 25th% 18w1d (16w3d to 20w0d) OFD 53.3 mm 27th% 18w2d TCD 19.4 mm 70th% 19w2d HUM 25.3 mm 27th% 18w1d VENTRp 5.9 mm n/a CM 3.5 mm 15th% NUCHAL FOLD 3.20 mm HC/AC Ratio 1.123 15th% FL/AC Ratio 0.198 16th% BPD/FL Ratio 1.520 26th% BPD/OFD Ratio 0.767 25th% Anatomy: Head: head shape appears normal. Brain: Cerebellum, choroid plexus, ciste rna magna, lateral cerebral ventricles, midline falx and cavum septi pellucidi appear normal. Face: Upper lip appears normal. Spine: Cervical, thoracic, lumbar and sa cral spine appear normal Neck / Skin: No neck masses seen. Thorax: No thoracic abnormalities detect ed. Heart: Four chamber heart and outflow tr acts appear normal. Abdominal Wall: Normal cord insertion in to the abdominal wall is seen. Gastrointestinal Tract: Stomach appears normal. Kidneys / Adrenal Glands: Bilateral kidn eys appear normal. Bladder: bladder appears normal in size and shape. Genitalia: Male fetus. Extremities: Both upper and lower extrem ities are seen. Skeleton: No evidence of skeletal abnorm ality detected. Summary of Ultrasound Findings: Transabdominal US. U/S machine: [employer]. U/S view: good. Maternal Structures: Uterus, cervix and both ovaries appear n ormal. Report Summary: Impression: [id number] Obstetrical ultrasound with and maternal evaluation This is a ricks gestation. Biometry is consistent with prior ultras ound dating. Anatomy appears normal as noted above; however, ultrasound cannot detect all anomalies. There is trunk an d extremity movement noted. The amniotic fluid volume appears normal . Recommendations: Follow-up as clinically indicated. Growth Overview: Date GA BPD [mm] HC [mm] AC [mm] FL [mm] HUM [mm] EFW GP 08/03/2010 13 + 0 ... ... ... ... ... .. . ... 09/12/2010 18 + 5 40.9 37th 152.4 21st 1 35.7 55th 26.9 25th 25.3 27th ... ... Performing Organization Address City/State/ZIP Code Phon e Number [facility]NAL [facility]IC[facility] documented in this encounter Visit Diagnoses Diagnosis Supervision of normal first - Primary documented in this encounter Care Teams Sea Shell Gatherer Relationship Specialty Start Date End Date Carmela Sanchez MD PCP - General 07/30/08 08/13/[address] [place] [address] [phone] documented as of this encounter
--- OUTSIDE RECORDS SUMMARY | 2021-10-28 15:12 | XMS_ITS | Encounter Summary ---
:1990 Author Organization [facility] Address [address] [place] [address] Care Team Providers Name Role Phone Carmela Sanchez MD Primary Care Provider Reason for Visit Reason Comments Initial Visit Encounter Details Date Type Department Care Team Description 07/22/2010 Initial [facility] Jose Brooke MD GA: 11w2d Women's Services - [facility] [address] [place] [phone] [address] [facility] [place], [place] [id number] Social History Tobacco Use Types Packs/Day Years Used Date Current Every Day Smoker Cigarettes 0.25 7 Smokeless Tobacco: Never Used Tobacco Cessation: Ready to Quit: Yes Alcohol Use Standard Drinks/Week Comments Yes [...] Sign Reading Time Taken Comments Blood Pressure 106/60 07/22/2010 1100 EDT Pulse - - Temperature - - Respiratory Rate - - Oxygen Saturation - - Inhaled Oxygen Concentration - - Weight 77.9 kg (171 lb 12.8 oz) 07/22/2010 1100 EDT Height 165.1 cm (5' 5) 07/22/2010 1100 EDT Body Mass Index 28.59 07/22/2010 1100 EDT documented in this encounter Progress Notes Jose Brooke - 07/22/2010 1354 EDT Uncertain dates - will check U/S Needs discussion regarding non-invasive chromosome screening - literature given, for her to review and discuss with sig other. Jose Brooke MD ounJose woods - 07/22/2010 1145 EDT Intake visit Teen Had chlamydia - treated, MARIKA last month negative. Needs third trimester screening repeat Oriented to practice Smoker - reducing Vulvar viteligo H/o IBS - not severe - warned my get worse Size> dates - check U/S (pt thinks she has twins) Depression - discussed in detail. Will hold off meds for now, consider peripartum for post prophylaxis. Jose Brooke MD Meredith Benitez RN - 07/22/2010 1119 EDT Cramping really bad, when she sits up or coughs on left side. Denies vaginal bleeding. 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 History: Age: 20 years. Dating: Current Scan on: 08/03/2010 EDC: 011 GA by current scan: 13w0d Best Overall Assessment: 08/03/2010 EDC: 02/08/2011 Assessed GA: 13w0d The calculation of the gestational age b y current scan was based on CRL. The Best Overall Assessment is based on the ultrasound examination on 08/03/2010. Early Assessment: Biometry: CRL 66.8 mm 41st% 13w0d (12w0d to 14w0d) Gestational Sac present. Yolk Sac not vi sible. Embryo present. Heart activity: Present. Heart rate: 154 bpm. Placenta: low-lying placenta. Maternal Structures: Uterus: anteverted. Right Ovary: normal. Right Ovary size: 32 mm x 28 mm x 16 mm. Volume: 7.5 ml. Left Ovary: normal. Left Ovary size: 31 mm x 16 mm x 19 mm. Volume: 4.9 ml. Report Summary: Impression: ricks viable IUP at 13 w eeks with an EDC 02/08/2011. 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 History: Age: 20 years. Dating: Current Scan on: 08/03/2010 EDC: 011 GA by current scan: 13w0d Best Overall Assessment: 08/03/2010 EDC: 02/08/2011 Assessed GA: 13w0d The calculation of the gestational age b y current scan was based on CRL. The Best Overall Assessment is based on the ultrasound examination on 08/03/2010. Early Assessment: Biometry: CRL 66.8 mm 41st% 13w0d (12w0d to 14w0d) Gestational Sac present. Yolk Sac not vi sible. Embryo present. Heart activity: Present. Heart rate: 154 bpm. Placenta: low-lying placenta. Maternal Structures: Uterus: anteverted. Right Ovary: normal. Right Ovary size: 32 mm x 28 mm x 16 mm. Volume: 7.5 ml. Left Ovary: normal. Left Ovary size: 31 mm x 16 mm x 19 mm. Volume: 4.9 ml. Report Summary: Impression: ricks viable IUP at 13 w eeks with an EDC 02/08/2011. Recommendations: F/U dr Brooke, [facility] Performing Organization Address City/State/ZIP Code Phon e Number [facility] MATERNAL MEDICINE [facility] documented in this encounter Visit Diagnoses Diagnosis Absence of menstruation Uterine size date discrepancy, unspecifi ed as to episode of care or not applicable documented in this encounter Discontinued Medications Medication Sig Discontinue Reason Start Date End Date diclofenac (VOLTAREN) 75 Take 1 Tab by mouth Error 1 07/22/2010 mg EC tabletIndications: 2 times daily. Muscle strain of chest wall ibuprofen (MOTRIN) 800 Take 1 Tab by mouth 08/19/2009 07/22/2010 mg tabletIndications: as needed for Pain. Back pain documented as of this encounter Care Teams Housekeeper Home Relationship Specialty Start Date End Date Carmela Sanchez MD PCP - General 07/30/08 08/13/[address] [place] [phone] documented as of this encounter
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
--- OUTSIDE RECORDS SUMMARY | 2021-10-28 15:12 | XMS_ITS | Encounter Summary ---
:[address] [facility] Address [address] [place] [id number] Care Team Providers Name Role Phone Carmela Sanchez MD Primary Care Provider Reason for Visit Reason Comments Routine Visit Encounter Details Date Type Department Care Team Description 12/01/2010 Routine [facility] Gabrielle Walden GA : 30w1d Obstetrics & Midwifery MD Constance - [address] [address] [address], [place] [phone] (Wo rk) Social History Tobacco Use Types [...] Sign Reading Time Taken Comments Blood Pressure 94/50 12/01/2010 1342 EDT Pulse - - Temperature - - Respiratory Rate - - Oxygen Saturation - - Inhaled Oxygen Concentration - - Weight 85.5 kg (188 lb 9.6 oz) 12/01/2010 1342 EDT Height - - Body Mass Index 31.38 11/21/2010 1517 EDT documented in this encounter Progress Notes Matthew Friend MD - 12/01/2010 1435 EDT 30-35 Weeks Subjective: Renetta Bradley is a 20 y.o. female at 30w1d here for a visit. She is a transfer of care from [facility] secondary to new onset of seizure disorder. Patient with no prior history of seizure activity, but had a witnessed seizure on 11/21/10 and was evaluated in the hospital. Seen by neurologyand not placed on any medications. Ultrasound evaluation as inpatient was 42%. Of note, 24 hour urine collection came back with 312 mg/24 hours; however, the patient's blood pressures have always been very normal. No complaints today. No VB, No LoF, No BYRNES, No visual changes or disturbances, No RUQ pain. She does report having some occasional dizzy episodes but no loss of consciousness, or seizure-like activity. Feels good movement. Patient reports no complaints except some round ligament pain. Contractions None Movement present Objective: Filed Vitals: 12/01/10 1342 BP: 94/50 Weight: 85.548 kg (188 lb 9.6 oz) Additional exam: FH - 30cm FHT - 130s Assessment: 1. IUP at 30w1d: size equals dates 2 Additional assessment: none 3. Signs and symptoms of labor reviewed Plan: 1. Problem list reviewed and updated. Seizure - Matthew Friend MD 12/01/10 1741 Signed No seizure activity since discharge Will continue to see in [facility] clinic. Patient may see [facility] for visit. 2. Signs and symptoms of labor reviewed. 3. Additional testing: none 4. Follow-up in 2 weeks Matthew Friend MD [facility]: Pt seen and discussed with fellow at time of visit. I agree with the above assessment and plan of care. Gabrielle Walden MD documented in this encounter Miscellaneous Notes Assessment & Plan Note - Matthew Friend MD - 12/01/2010 1741 EDT Associated Problem(s): Convulsions (HCC-CMS) (HCC) No seizure activity since discharge documented in this encounter Plan of Treatment Not on filedocumented as of this encounter Visit Diagnoses Not on filedocumented in this encounter Discontinued Medications Medication Sig Discontinue Reason Start Date End Date tocopheryl acetate Take 100 Units by 11/08 (VITAMIN E) 100 unit mouth daily. capsule documented as of this encounter Care Teams Sales Technician Relationship Specialty Start Date End Date Carmela Sanchez MD PCP - General 07/30/08 08/13/[address] [place] [phone] documented as of this encounter
--- OUTSIDE RECORDS SUMMARY | 2021-10-28 15:12 | XMS_ITS | Encounter Summary ---
:1990 Author Organization [facility] Address [address] [place] [address] Care Team Providers Name Role Phone Carmela Sanchez MD Primary Care Provider Reason for Visit Reason Comments URI Pt reports 3 days of URI sym ptoms including pharyngitis, productive cough c/ brown phlegm, and dyspnea. R eports she may have had a fever last night. Speaking in full sentences i n triage, appears in NAD. Encounter Details Date Type Department Care Team Description 06/05/[address] [facility] Comfort Rosa IV, MD [address] [place] [address], Level [address] [place] [address] Upper respiratory Emergency Department Emergency, MD [place] infection - [address] [address] Social History Tobacco Use Types [...] Reading Time Taken Comments Blood Pressure 110/76 06/05/20102007 EST Pulse - - Temperature 34.6 ??C (94.3 ??F) 06/05/20102007 EST Respiratory Rate 20 06/05/20102007 EST Oxygen Saturation 100% 06/05/20102007 EST Inhaled Oxygen Concentration - - Weight - - Height - - Body Mass Index - - documented in this encounter Discharge Instructions InstructionsKel Rosa IV, MD - 06/05/2010 Please call your doctor to arrange follow up. Meds as directed. Stop smoking. documented in this encounter Medications at Time of Discharge Medication Sig Dispensed Refills Start Date End Date albuterol (VENTOLIN HFA) Inhale 2 Puffs as 1 Inhaler 1 08/201002/14/2011 90 mcg/Actuation inhaler directed as needed for Wheezing. azithromycin (ZITHROMAX) Take 1 Tab by mouth 4 Tab 0 06/25/2010 250 mg tablet daily. ibuprofen (MOTRIN) 800 mg Take 1 Tab by mouth 100 Tab 3 0 08/19/2009 07/22/2010 tabletIndications: Back as needed for Pain. pain omeprazole (PRILOSEC) 20 Take 1 Cap by mouth 30 Cap 5 09/12/2010 mg capsuleIndications: daily. GERD (gastroesophageal reflux disease) predniSONE (DELTASONE) 20 Take 3 Tabs by mouth 15 Tab 0 06/05/2010 06/25/2010 mg tablet daily. documented as of this encounter Ordered Prescriptions Prescription Sig Dispensed Refills Start Date End Date predniSONE (DELTASONE) 20 Take 3 Tabs by 15 Tab 0 201006/25/2010 mg tablet mouth daily. azithromycin (ZITHROMAX) Take 1 Tab by mouth 4 Tab 0 06/25/2010 250 mg tablet daily. documented in this encounter Discharge Disposition Disposition Code Departure Means Destination Comments Home or Self Care Walk-out Home with frien d documented in this encounter ED Notes Kel Rosa IV, MD - 06/17/2010 0029 EST DOS: 06/05/2010 Chief Complaint Patient presents with ??? URI Pt reports 3 days of URI symptoms including pharyngitis, productive cough c/ brown phlegm, and dyspnea. Reports she may have had a fever last night. Speaking in full sentences in triage, appears in NAD. The patient is a 20 y.o. female who presents today with URI URI This is a new problem. The current episode started more than 2 days ago. The problem has been gradually worsening. There has been no fever. Associated symptoms include chest pain, congestion, rhinorrhea, sneezing, sore throat, swollen glands and cough. Pertinent negatives include no abdominal pain andno dysuria. She has tried nothing for the symptoms. Review of Systems Constitutional: Negative for fever and activity change. HENT: Positive for congestion, sore throat, rhinorrhea and sneezing. Eyes: Negative. Respiratory: Positive for cough. Negative for shortness of breath. Cardiovascular: Positive for chest pain. Gastrointestinal: Negative for abdominal pain. Genitourinary: Negative for dysuria. Musculoskeletal: Negative for back pain. Skin: Negative. Neurological: Negative. All other systems reviewed and are negative. Past Medical History Diagnosis Date ??? Migraine ??? Acid reflux ??? 2007 ??? Asthma ??? Varicella infection, resolved noted 1994 ??? Depressive disorder noted 08/11/2008 ??? Anxiety states noted 11/03/2008 ??? Irritable bowel syndrome History reviewed. No pertinent past surgical history. Allergies Allergen Reactions ??? Sulfa (Sulfonamide Antibiotics) Anaphylaxis ??? Bee Pollens Anaphylaxis History Substance Use Topics ??? Smoking status: Current Everyday Smoker -- 0.5 packs/day for 7 years Types: Cigarettes ??? Smokeless tobacco: Never Used ??? Alcohol Use: Yes occassionally Family History Problem Relation Age of Onset ??? Depression Mother ??? Depression Maternal Grandfather severe Vital Signs Temp: 34.6 ??C (94.3 ??F) Temp src: Tympanic Heart Rate: 96 BPM Resp: 20 SpO2: 100 % SpCO: 0 % BP: 110/76 mmHg BP Device: BP Machine Patient Position: Sitting BP Cuff Location: Right arm O2 Device: None (Room air) Physical Exam Nursing note and vitals reviewed. Constitutional: She is oriented to person, place, and time. She appears well- developed and well-nourished. HENT: Head: Normocephalic and atraumatic. Eyes: Pupils are equal, round, and reactive to light. Neck: Neck supple. Cardiovascular: Normal rate and intact distal pulses. Pulmonary/Chest: Effort normal. No respiratory distress. Musculoskeletal: Normal range of motion. Neurological: She is alert and oriented to person, place, and time. Skin: Skin is warm and dry. Psychiatric: She has a normal mood and affect. Her behavior is normal. Thought content normal. Radiology orders: CHEST PA AND LATERAL CHEST PA AND LATERAL Final result not shown here.: Xrays visualized by myself and interpreted concurrently with radiologist. Please see radiology reading for further details. No infiltrate. Procedures ED Course: URI sx by hx Nl exam Azithro/pred D/c to home, f/u PCP Discharge Prescriptions New Prescriptions AZITHROMYCIN (ZITHROMAX) 250 MG TABLET Take 1 Tab by mouth daily. PREDNISONE (DELTASONE) 20 MG TABLET Take 3 Tabs by mouth daily. MDM Number of Diagnoses or Management Options Upper respiratory infection: Diagnosis management comments: 3 1. Upper respiratory infection (465.9R) PCP: Carmela Sanchez MD, MD 06/17/2010 23:09 Matthew Munoz RN - 06/05/2010 1435 EST Late entry - assessment after neb treatment, wheezes improved and patient moving air well. Patient was slightly tachy after neb tx and informed this is a natural reaction to Albuterol. eni Shaver RN - 06/05/20102010 EST LS diminished on expiration. documented in this encounter Miscellaneous Notes Scanned Note-Null - Inpatient, PhysicianMD - 06/05/2010 0000 EST documented in this encounter Plan of Treatment Not on filedocumented as of this encounter Procedures Procedure Name Priority Date/Time Associated Diagnosis Comme nts CHEST PA AND STAT 06/05/2010 20:42 Results for this LATERAL EST procedure are i n the results section. documented in this encounter Results CHEST PA AND LATERAL (06/05/2010 20:42 EST) Anatomical Region Laterality Modality Other Specimen Narrative [facility] - 06/06/2010 9:10 EST CHEST PA AND LAT ??Jun 05, 2010 08:42:00 PM Clinical History/Comments: URI Comparison: November 13, 2008. Findings: The lungs are clear. ??The car diomediastinal contour and pulmonary vasculature are normal. There are no pleural effusions. The osseous structures are normal. Impression: 1. Normal chest I have personally reviewed the images an d the above interpretation and agree with the findings. Procedure Note Ryder Cooney MD - 06/06/2010 CHEST PA AND LAT Jun 05, 2010 08:42:00 P M Clinical History/Comments: URI Comparison: November 13, 2008. Findings: The lungs are clear. The cardi omediastinal contour and pulmonary vasculature are normal. There are no pleural effusions. The osseous structures are normal. Impression: 1. Normal chest I have personally reviewed the images an d the above interpretation and agree with the findings. Performing Organization Address City/State/ZIP Code Phon e Number [facility] documented in this encounter Visit Diagnoses Diagnosis Upper respiratory infection Acute upper respiratory infections of un specified site documented in this encounter Administered Medications Inactive Administered Medications - up to 3 most recent administrations Medication Order MAR Action Action Date Dose Rate Site albuterol (PROVENTIL HFA, VENTOLIN Given 06/05/2010 23:11 EST 2 Puffs HFA) inhaler 2 Puff 2 Puff, inhalation, EVERY 6 HOURS PRN, Starting on 06/05/10 at 2254, Until 06/06/10 at 0112, Wheezing, STAT albuterol (PROVENTIL) 2.5 mg /3 mL (0.083 %) Given 06/05/2010 20 :46 EST 5 mg nebulizer solution 5 mg 5 mg, nebulization, NOW X1, 1 dose, On 06/05/10 at 2100, STAT azithromycin (ZITHROMAX) tablet 500 mg Given 06/05/2010 23:11 EST 500 mg 500 mg, oral, NOW X1, 1 dose, On 06/05/10 at 2315, STAT ipratropium (0.5mg/2.5ml) (ATROVENT) 0.02 % Given 06/05/2010 20: 46 EST 0.5 mg nebulizer solution 0.5 mg 0.5 mg, nebulization, NOW X1, 1 dose, On 06/05/10 at 2100, STAT predniSONE (DELTASONE) tablet 60 mg Given 06/05/2010 23:11 EST 60 mg 60 mg, oral, NOW X1, 1 dose, On 06/05/10 at 2315, STAT documented in this encounter Discontinued Medications Medication Sig Discontinue Reason Start Date End Date dicyclomine (BENTYL) 20 mg Take 20 mg by Therapy completed 11/27/19 10 06/05/2010 tablet mouth as needed. ACETAMINOPHEN (TYLENOL Take by mouth. Therapy completed 06/05/2010 ORAL) documented as of this encounter Active and Recently Administered Medications Times are shown in EST. Scheduled Medication Order 06/03/2010 06/04/2010 06/05/2010 albuterol (PROVENTIL) 2.5 mg /3 mL (0.08 3 %) nebulizer solution 5 mg (COMPLETED) 2045 (Given - Provid er: Matthew Munoz RN) 5 mg, Nebulization, NOW X1, 1 dose, 06/05/10 at 2100 azithromycin (ZITHROMAX) tablet 500 mg (COMPLETED) 2310 (Given - Provider: Matthew Munoz RN) 500 mg, Oral, NOW X1, 1 dose, 06/05/10 at 2315 ipratropium (0.5mg/2.5ml) (ATROVENT) 0.0 2 % nebulizer solution 0.5 mg (COMPLETED) 2045 (Given - Provid er: Matthew Munoz RN) 0.5 mg, Nebulization, NOW X1, 1 dose, 06/05/10 at 2100 predniSONE (DELTASONE) tablet 60 mg (COMPLETED) 2310 (Given - Provider: Matthew Munoz RN) 60 mg, Oral, NOW X1, 1 dose, 06/05/10 at 2315 PRN Medication Order 06/03/2010 06/04/2010 06/05/2010 albuterol (PROVENTIL HFA, VENTOLIN HFA) inhaler 2 Puff (CANCELED ) 0051 (Given - Provider: Matthew Munoz RN) 2 Puff, Inhalation, EVERY 6 HOURS AARONN, Robinson chand 06/05/10 at 2254, Until 06/06/10 at 0112, Wheezing documented in this encounter Care Teams Delinquent Tax Collector Relationship Specialty Start Date End Date Carmela Sanchez MD PCP - General 07/30/08 08/13/[address] [place] [phone] documented as of this encounter
--- OUTSIDE RECORDS SUMMARY | 2021-10-28 15:12 | XMS_ITS | Encounter Summary ---
:1990 Author Organization [facility] Address [address] [place] [address] Care Team Providers Name Role Phone Carmela Sanchez MD Primary Care Provider Reason for Visit Reason Comments Appointment Related Encounter Details Date Type Department Care Team Description 09/14/2010 Telephone [facility] Jie Conroy APRN Appointment Related [address] [place] [address] [place] [address] [facility] [address] [place] [address] (Wo rk) Social History Tobacco [...] Notes Telephone Encounter - Renetta Lay - 09/14/2010 1218 EDT [facility] [address] [facility] [address] Therapy referral was received for Renetta L Mirna. Attempted to contact Ms. Bradley to schedule her initial therapy visit. Left message. Renetta Lay documented in this encounter Plan of Treatment Not on filedocumented as of this encounter Visit Diagnoses Not on filedocumented in this encounter Care Teams Training Consultant Relationship Specialty Start Date End Date Carmela Sanchez MD PCP - General 07/30/08 08/13/[address] [place] [phone] documented as of this encounter
--- OUTSIDE RECORDS SUMMARY | 2021-10-28 15:12 | XMS_ITS | Encounter Summary ---
:1990 Author Organization [facility] Address [address] [place] [address] Care Team Providers Name Role Phone Carmela Sanchez MD Primary Care Provider Encounter Details Date Type Department Care Team Description 07/04/2010 Orders Only [facility] Center Reproductive Jennifer Westbrook P [facility], Medicine & Infertility RN incid ental (Primary Center - Main [place] [facility]) [address] [place] [address] Social History Tobacco Use Types [...] Date/Time Associated Diagnosis Comme nts POCT Routine 07/04/2010 14:35 state, Result s for this TEST, VISUAL READ EDT incidental procedure are in the results section. documented in this encounter Results (ABNORMAL) POCT URINE TEST (07/04/2010 14:35 EDT) Test, Positive (A) Pending, Negative POINT OF CARE Urine, POC Control Line Present Yes POINT OF CARE Background Clear? Yes POINT OF CARE Specimen Urine (substance) Performing Organization Address City/State/ZIP Code [facility] e Number [facility] POINT OF CARE POINT OF CARE documented in this encounter Visit Diagnoses Diagnosis state, incidental - Primary documented in this encounter Care Teams Sql Ssrs Developer Relationship Specialty Start Date End Date Carmela Sanchez MD PCP - General 07/30/08 08/13/[address] [place] [phone] documented as of this encounter
--- OUTSIDE RECORDS SUMMARY | 2021-10-28 15:12 | XMS_ITS | Encounter Summary ---
:1990 Author Organization [facility] Address [address] [place] [address] Care Team Providers Name Role Phone Carmela Sanchez MD Primary Care Provider Reason for Visit Reason Comments Routine Visit Encounter Details Date Type Department Care Team Description 12/29/2010 Routine [facility] [place], [place]: [id number] Obstetrics & Midwifery - MD Main [place] [address] [place] [address] Social History Tobacco Use Types Packs/Day [...] Reading Time Taken Comments Blood Pressure 102/60 12/29/2010 1434 EDT Pulse - - Temperature - - Respiratory Rate - - Oxygen Saturation - - Inhaled Oxygen Concentration - - Weight 88.2 kg (194 lb 6.4 oz) 12/29/2010 1434 EDT Height - - Body Mass Index 32.35 11/21/2010 1517 EDT documented in this encounter Discharge Disposition Disposition Code Departure Means Destination Auto Discharge documented in this encounter Progress Notes Tisha Lynch CNM - 12/29/2010 1538 EDT S: Renetta states she has had diarrhea for 4 days that has become soft stools in the last 2 days. This morning she went 3 times - it was very soft but not watery. She noticed blood in her stool once yesterday but not since. She is not aware of any hemorrhoids. She also feels nauseous, especially when she has BM, but doesn't vomit. She has reflux pretty bad, is taking meds for it. She has appt to see gastroenterology on . She states she has h/o of IBS but it has always been constipation, not diarrhea. She has not had fever that she is aware of. States that she drinks lots, unable to quantify, all water, rarely milk, nothing else. Also, c/o pain on right side of her back in last couple days - constant, no change with position changes, worse today. No dysuria but increased frequency. O: BP 102/60 Wt 88.179 kg (194 lb 6.4 oz) LMP 05/22/2010 No CVAT UA: negative A: 20 yo @ 34+1 wks H/O IBS with recent episode of diarrhea - Gastroenterology appt 01/04 GERD (gastroesophageal reflux disease) - Tisha Lynch CNM 12/29/10 1544 Signed Worsening symptoms. On prilosec, mylanta, and Tums. Seizure - Tisha Lynch CNM 12/29/10 1545 Signed No recent symptoms. Supervision of normal first - Tisha Lynch CNM 12/29/10 1552 Signed GBS and genprobe next visit. Discussed with Dr. Land. documented in this encounter Miscellaneous Notes Assessment & Plan Note - Tisha Lynch CNM - 12/29/2010 1552 EDTAssociated Problem(s): Supervision of normal first (Resolved 03/23/2011) GBS and genprobe next visit. ssessment & Plan Note - Tisha Lynch CNM - 12/29/2010 1545 EDTAssociated Problem(s): Convulsions ([facility]) ([facility]) No recent symptoms. ssessment & Plan Note - Tisha Lynch CNM - 12/29/2010 1544 EDT Associated Problem(s): Gastroesophageal reflux disease Worsening symptoms. On prilosec, mylanta, and Tums. documented in this encounter Plan of Treatment Not on filedocumented as of this encounter Procedures Procedure Name Priority Date/Time Associated Diagnosis Comme nts POCT URINE Routine 12/29/2010 15:38 Other specified Results for this DIPSTICK, CLINITEK EDT complication, procedur e are in antepartum the results section. documented in this encounter Results POCT URINE DIPSTICK (12/29/2010 15:38 EDT) Color YELLOW [facility] Clarity, UA CLOUDY [facility] Glucose Neg NEG [facility] Bilirubin Neg NEG [facility] Ketones Neg NEG [facility] Specific [place] 1.020 1.001 - 1.035 [facility] Blood Neg NEG [facility] pH 7.0 4.6 - 8.0 [facility] Protein Neg NEG [facility] Urobilinogen 0.2 0.2 - 1.0 [facility] E.U./dl LAB Nitrite Neg NEG [facility] Leuk Esterase Neg NEG [facility] teacher counselor ID [id number] [facility] Spec[facility] Urine (substance) Performing Organization Address City/State/ZIP Code Phon e Number [facility] [address] [place] [address] SERVICES [facility] [address] [place] [address] documented in this encounter Visit Diagnoses Diagnosis Other specified complication, antepartum (646.83) Other specified complication, antepartum documented in this encounter Care Teams Third Rail Installer Relationship Specialty Start Date End Date Carmela Sanchez MD PCP - General 07/30/08 08/13/11 [address] [place] [phone] documented as of this encounter
--- OUTSIDE RECORDS SUMMARY | 2021-10-28 15:12 | XMS_ITS | Encounter Summary ---
:1990 Author Organization [facility] Address [address] [place] [address] Care Team Providers Name Role Phone Carmela Sanchez MD Primary Care Provider Encounter Details Date Type Department Care Team Description 07/22/2010 Phlebotomy Only [facility] Supervisor Drying, Super [facility] Outpatient normal [address] [place], [place] [id number] [phone] Social History Tobacco Use Types Packs/Day Years [...] Name Priority Date/Time Associated Diagnosis Comme nts PROFILE AND Routine 07/22/2010 12:30 Supervision of o ther Results for this VARICELLA EDT normal procedure a re in the results section. BACTERIAL CULTURE, Routine 07/22/2010 12:30 Supervision of oth er Results for this URINE EDT normal procedure a re in the results section. HIV 1/2 ANTIGEN AND Routine 07/22/2010 12:30 Supervision of ot her Results for this ANTIBODY, 4TH EDT normal procedure are in GENERATION the results section. documented in this encounter Results PROFILE AND VARICELLA (07/22/2010 12:30 EDT) WBC 10.31 4.0 - 12.4 [facility] K[facility]cmm [facility] RBC 4.17 3.86 - 5.04 [facility] M[facility] Hemoglobin 13.6 11.6 - 15.2 [facility] gm/dl LAB HCT 39.3 34.9 - 44.4 % [facility] MCV 94 81 - 98 fl [facility] MCH 32.6 26.7 - 33.3 [facility] pg LAB MCHC 34.7 32.1 - 35.9 [...] Neutrophils 7.65 2.20 - 8.85 [facility] ABS Lymphs 1.87 1.09 - 3.30 [facility] ABS Monocytes 0.62 0.1 - 0.8 [facility] ABS Eosinophils 0.14 0.03 - 0.61 [facility] ABS Basophils 0.03 0.01 - 0.11 [facility] Type of Diff: Automated [facility] [...] Specimen Blood specimen (specimen) Performing Organization Address [facility]/ZIP Code Phon e Number [facility] [address] [place] [address] SERVICES [facility] [address] [place] [address] HIV ANTIBODY (07/22/2010 12:30 EDT) HIV 1/2 Antibody Negative Reference [facility] Range: Negative Specimen Blood specimen (specimen) Performing Organization Address [facility]/ZIP [facility] Phon e Number [facility] [address] [place] [address] SERVICES [facility] [address] [place] [address] BACTERIAL CULTURE, URINE (07/22/2010 12:30 EDT) Pathologist [facility] Specimen Description Urine [facility] Result Less than 10,000 [facility] CFU/ml Gram positive organism Report Status Final [facility] 07/23/2010 Specimen Urine (substance) Performing Organization Address [facility] Phon e Number [facility] [address] [place] [address] SERVICES [facility] [address] [place] [address] documented in this encounter Visit Diagnoses Diagnosis Supervision of other normal documented in this encounter Care Teams Housing Relocation Relationship Specialty Start Date End Date Carmela Sanchez MD PCP - General 07/30/08 08/13/[address] [place] [phone] documented as of this encounter
--- OUTSIDE RECORDS SUMMARY | 2021-10-28 15:12 | XMS_ITS | Encounter Summary ---
:1991 Author Organization [facility] Address [address] [place] [address] Care Team Providers Name Role Phone Carmela Sanchez MD Primary Care Provider Reason for Visit Reason Onset Date Comments Migraine 09/15/2010 Encounter Details Date Type Department Care Team Description 09/15/2010 Telephone [facility] Women's Monica Rincon MD Migraine Services - [facility] [address] [facility] [id number] [place] [phone] (Wo rk) Social History Tobacco Use Types [...] this encounter Miscellaneous Notes Telephone Encounter - Monica Conrad MD - 09/15/2010 2003 EDT Pt has called 2 times this evening with complaints of headache (consistent with history of migraines) and nausea, rare emesis. Took Tylenol and excedrin, no effect. Called in Fioricet Rx to [facility] [address] in [place], told to hydrate, rest and call back if persists/worsens. Offered to come to [facility] vs outpatient trial of fioricet. Plan for outpt med trial at this time. Monica Conrad MD [phone] 09/15/2010 20:03 documented in this encounter Plan of Treatment Not on filedocumented as of this encounter Visit Diagnoses Not on filedocumented in this encounter Historical Medications This list may reflect changes made after this encounter. Medication Sig Dispensed Refills Start Date End Date butalbital-acetaminophen Take 1-2 Tabs by 0 01/16/2011 -caffeine (FIORICET, mouth every 4 hours ESGIC) 50-325-40 mg per as needed. tabletIndications: Indications: MIGRAINE migraine added in this encounter Care Teams Land Title Examiner Relationship Specialty Start Date End Date Carmela aSnchez MD PCP - General 07/30/08 08/13/[address] [place] [phone] documented as of this encounter
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
--- OUTSIDE RECORDS SUMMARY | 2021-10-28 15:12 | XMS_ITS | Encounter Summary ---
:1990 Author Organization [facility] Address [address] [place] [address] Care Team Providers Name Role Phone Carmela Sanchez MD Primary Care Provider Reason for Visit Reason Comments Routine Visit increasing pain and timing w ith bh's, increased difficulty breathing, denies lof, edema , bleeding, Encounter Details Date Type Department Care Team Description 12/15/2010 Routine [facility] Gabrielle Walden [place] : 32w1d Obstetrics & Midwifery MD Constance - [address] [address] [place], [place] [address] (Wo rk) Social History Tobacco [...] Sign Reading Time Taken Comments Blood Pressure 114/56 12/15/2010 1500 EDT Pulse - - Temperature - - Respiratory Rate - - Oxygen Saturation - - Inhaled Oxygen Concentration - - Weight 86 kg (189 lb 9.6 oz) 12/15/2010 1500 EDT Height - - Body Mass Index 31.55 11/21/2010 1517 EDT documented in this encounter Progress Notes Carmenza Lopez MD - 12/15/2010 1545 EDT S: Patient is a 20 y.o. 32w1d. Pt complains of. No LOF, no VB. No regular ctxs. No other c/os O: Blood pressure 114/56, weight 86.002 kg (189 lb 9.6 oz), last menstrual period 05/22/2010. See flow sheet FH 32cm FHR 135 A/P:20 y.o. 32w1d : Seizure - Carmenza Lopez MD 12/15/10 1532 Signed -New onset - hospitalized 11/21/10 - work up negative, saw neurology - no meds started. Neuro thoughtthe sz was most likely stress-related. -Saw Neurology in the hospital, no f/u currently scheduled, w/ plan to see pt only if another sz episode. -S/p NORMAL EEG in the hospital, no evidence of epilepsy. Supervision of normal first - Carmenza Lopez MD 12/15/10 153 Signed Desires CNM care Declines genetic testing 18 wk ANGELINE [ normal] F/u 28 week scan wnl 24 hr urine protein 312mg (normal BP and labs - done 2nd to new onset sz) Chlamydia - Carmenza Lopez MD 12/15/101534 Signed Needs repeat screening 3rd tirmester. Return to clinic 2 weeks. Carmenza Lopez MD MFM: Pt discussed with fellow at time of visit. I agree with the above assessment and plan of care. Gabrielle Walden MD documented in this encounter Miscellaneous Notes Assessment & Plan Note - Carmenza Lopez MD - 12/15/2010 1535 EDTAssociated Problem(s): Chlamydia (Resolved 03/29/2011) Needs repeat screening 3rd tirmester. ssessment & Plan Note - Carmenza Lopez MD - 12/15/2010 1533 EDTAssociated Problem(s): Supervision of normal first (Resolved 03/23/2011) Desires CNM care Declines genetic testing 18 wk ANGELINE [ normal] F/u 28 week scan wnl 24 hr urine protein 312mg (normal BP and labs - done 2nd to new onset sz) ssessment & Plan Note - Carmenza Lopez MD - 12/15/2010 1532 EDTAssociated Problem(s): Convulsions ([facility]) ([facility]) -New onset - hospitalized 11/21/10 - work up negative, saw neurology - no meds started. Neuro thoughtthe sz was most likely stress-related. -Saw Neurology in the hospital, no f/u currently scheduled, w/ plan to see pt only if another sz episode. -S/p NORMAL EEG in the hospital, no evidence of epilepsy. documented in this encounter Plan of Treatment Not on filedocumented as of this encounter Visit Diagnoses Not on filedocumented in this encounter Care Teams Independent Producer Relationship Specialty Start Date End Date Carmela Sanchez MD PCP - General 07/30/08 08/13/[address] [place] [phone] documented as of this encounter
--- OUTSIDE RECORDS SUMMARY | 2021-10-28 15:12 | XMS_ITS | Encounter Summary ---
:1990 Author Organization [facility] Address [address] [place] [address] Care Team Providers Name Role Phone Carmela Sanchez MD Primary Care Provider Reason for Visit Reason Onset Date Comments Diarrhea 12/27/2010 Encounter Details Date Type Department Care Team Description 12/27/2010 Telephone [facility] Women's Aminata Watt RN Diarrhea Services - [facility] [address] [place] [address] Social History Tobacco Use [...] encounter Miscellaneous Notes Telephone Encounter - Karis Watt - 12/27/2010 1713 EDT TC from pt. 33w 6d . Was seen by [facility] today. Pt c/o diarrhea for 4 days now. Afebrile. No cramping. Appetite fair. Keeping food down. Pushing fluids/well hydrated. Baby moving. No vaginal bleeding/cramping. Pt seen by MFM/Midwives. Pt to f/u with apv on 12-29-10 @ 2:30 with [facility] per [facility]. Pt instructed to call office if she develops fever, vomiting, cramping, or if diarrhea worsens. documented in this encounter Plan of Treatment Not on filedocumented as of this encounter Visit Diagnoses Not on filedocumented in this encounter Care Teams Cyber Incident Analyst Relationship Specialty Start Date End Date Carmela Sanchez MD PCP - General 07/30/08 08/13/[address] [place] [phone] documented as of this encounter
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
--- OUTSIDE RECORDS SUMMARY | 2021-10-28 15:13 | XMS_ITS | Encounter Summary ---
:[address] [facility] Address [address] [place] [address] Care Team Providers Name Role Phone Carmela Sanchez MD Primary Care Provider Encounter Details Date Type Department Care Team Description 11/29/2009 Hospital Encounter [facility] - Carmela Sanchez MD [address] [phone] (Wo rk) Social History Tobacco Use Types Packs/Day Years Used Date Current Every Day Smoker Cigarettes 0.5 7 Alcohol Use Standard Drinks/Week Comments No 0 [...] Refills Start Date End Date albuterol (VENTOLIN Inhale 2 Puffs as 0 04/13/2010 HFA) 90 mcg/Actuation directed as needed for inhaler Wheezing. dicyclomine (BENTYL) 20 Take 20 mg by mouth as 0 11/26/2009 06/05/2010 mg tablet needed. Etonogestrel (IMPLANON) 68 mg by Subdermal 0 09/0703/07/2010 68 mg ImplIndications: route once. contraception Indications: CONTRACEPTION Etonogestrel (IMPLANON) by Subdermal route. 0 01/22/2010 68 mg Impl fluoxetine (PROZAC) 10 Take 1 Cap by mouth 30 Cap 5 10/0804/13/2010 mg capsuleIndications: daily. Take 20mg and Depression 10mg cap together fluoxetine (PROZAC) 20 Take 1 Cap by mouth 30 Cap 5 10/0802/24/2010 mg capsuleIndications: daily. Take 20mg and Depression 10mg cap together ibuprofen (MOTRIN) 800 Take 1 Tab by mouth as 100 Tab 3 0 08/19/2009 07/22/2010 mg tabletIndications: needed for Pain. Back pain methocarbamol (ROBAXIN) Take by mouth. One to 25 Tab 0 0 11/25/2009 01/22/2010 500 mg tablet two tablets by mouth every 6-8 hours as needed for pain/spasm omeprazole (PRILOSEC) Take 1 Cap by mouth 30 Cap 5 11/0109/12/2010 20 mg daily. capsuleIndications: GERD (gastroesophageal reflux disease) documented as of this encounter Discharge Disposition Disposition Code Departure Means Destination Home or Self Mcfp documented in this encounter Plan of Treatment Not on filedocumented as of this encounter Visit Diagnoses Not on filedocumented in this encounter Care Teams Underwriting Internship Relationship Specialty Start Date End Date Carmela Sanchez MD PCP - General 07/30/08 08/13/[address] [place] [phone] documented as of this encounter
--- OUTSIDE RECORDS SUMMARY | 2021-10-28 15:13 | XMS_ITS | Encounter Summary ---
:1990 Author Organization [facility] Address [address] [place] [address] Care Team Providers Name Role Phone Carmela Sanchez MD Primary Care Provider Encounter Details Date Type Department Care Team Description 09/15/2009 Hospital Encounter [facility] - Robinson Pittman MD [address] [phone] Social History Tobacco Use Types Packs/Day Years Used Date Current Every Day Smoker 0.5 7 Alcohol Use Standard Drinks/Week Comments [...] 1 Cap by mouth 30 Cap 3 08/0711/01/2009 mg capsuleIndications: daily. Take 20mg and Anxiety 10mg cap together fluoxetine (PROZAC) 20 Take 1 Cap by mouth 30 Cap 3 08/0711/01/2009 mg capsuleIndications: daily. Take 20mg and Anxiety 10mg cap together ibuprofen (MOTRIN) 800 Take 1 Tab by mouth as 100 Tab 3 0 08/19/2009 07/22/2010 mg tabletIndications: needed for Pain. Back pain omeprazole (PRILOSEC) Take 20 mg by mouth 0 11/01/2009 10 mg capsule daily. documented as of this encounter Discharge Disposition Disposition Code Departure Means Destination Home or Self Alf documented in this encounter Plan of Treatment Not on filedocumented as of this encounter Visit Diagnoses Not on filedocumented in this encounter Care Teams Plastic Mould Maker Relationship Specialty Start Date End Date Carmela Sanchez MD PCP - General 07/30/08 08/13/[address] [place] [phone] documented as of this encounter
--- OUTSIDE RECORDS SUMMARY | 2021-10-28 15:13 | XMS_ITS | Encounter Summary ---
:1990 Author Organization [facility] Address [address] [place] [address] Care Team Providers Name Role Phone Carmela Sanchez MD Primary Care Provider Reason for Visit Reason Onset Date Comments Follow-up 03/09/2010 Encounter Details Date Type Department Care Team Description 03/09/2010 Telephone [facility] Family Jessie Goodrich LPN Follow-up Medicine - [address] [address] Social History Tobacco Use Types Packs/Day Years Used Date Current Every Day Smoker Cigarettes 0.5 0.5 Smokeless Tobacco: Never Used Alcohol Use Standard [...] Telephone Encounter - Jessie Goodrich LPN - 03/09/2010 1150 EST TC Follow up from [facility] She continue to feel dizzy. But she hasn't picked up her medicine yet. Plans on doing that tomorrow after she get paid. She will try these medication and if they don't work she will call and schedule an appointment. documented in this encounter Plan of Treatment Not on filedocumented as of this encounter Visit Diagnoses Not on filedocumented in this encounter Care Teams Studio Technician Video Operator Relationship Specialty Start Date End Date Carmela Sanchez MD PCP - General 07/30/08 08/13/[address] [place] [phone] documented as of this encounter
--- OUTSIDE RECORDS SUMMARY | 2021-10-28 15:13 | XMS_ITS | Encounter Summary ---
:1990 Author Organization [facility] Address [address] [place] [address] Care Team Providers Name Role Phone Carmela Sanchez MD Primary Care Provider Reason for Visit Reason Comments Mass Pt c/o lump under chin x 5 days, states it hurts to swallow, talk, and yawn. Pt got chin pierced 2 weeks ago. Encounter Details Date Type Department Care Team Description 06/17/2009 - Emergency [facility] Jimmie Olguin MD Lymphadenopathy 06/18/2009 Emergency Department - Emergency, MD [facility] [place] [address] [place] [address] Social History Tobacco Use Types Packs/Day Years Used Date Current Every Day Smoker 0.5 Alcohol Use Standard Drinks/Week Comments No 0 [...] Sign Reading Time Taken Comments Blood Pressure 145/72 06/17/2009 2220 EST Pulse 86 06/17/2009 2220 EST Temperature 37 ??C (98.6 ??F) 06/17/2009 2220 EST Respiratory Rate 18 06/17/2009 2220 EST Oxygen Saturation 100% 06/17/2009 2220 EST Inhaled Oxygen Concentration - - Weight - - Height - - Body Mass Index - - documented in this encounter Discharge Instructions Meredith Davis MD - 06/18/2009 Take your antibiotic as prescribed. Follow up with your primary care provider. Return to the Emergency Room if your symptoms worsen or you develop new symptoms like fevers or chills. documented in this encounter Medications at Time of Discharge Medication Sig Dispensed Refills Start Date End Date albuterol (VENTOLIN HFA) Inhale 2 Puffs as 0 04/13/2010 90 mcg/Actuation inhaler directed as needed for Wheezing. clindamycin (CLEOCIN) Take 1 Cap by mouth 3 21 Cap 0 03/201006/25/2009 150 mg capsule times daily for 7 days. cyclobenzaprine Take 1 Tab by mouth 2 6 Tab 0 0 08/17/2009 (FLEXERIL) 5 mg times daily as needed tabletIndications: Left for Muscle Spasms. shoulder pain dicyclomine (BENTYL) 20 Take 20 mg by mouth 0 06/05/2010 mg tablet as needed. Etonogestrel (IMPLANON) 68 mg by Subdermal 0 09/0703/07/2010 68 mg ImplIndications: route once. contraception Indications: CONTRACEPTION Etonogestrel (IMPLANON) by Subdermal route. 0 01/22/2010 68 mg Impl ibuprofen (MOTRIN) 800 Take 1 Tab by mouth 21 Tab 0 05/1008/19/2009 mg tabletIndications: as needed for Pain. Left shoulder pain omeprazole (PRILOSEC) 10 Take 20 mg by mouth 0 11/01/2009 mg capsule daily. documented as of this encounter Ordered Prescriptions Prescription Sig Dispensed Refills Start Date End Date clindamycin (CLEOCIN) 150 Take 1 Cap by mouth 21 Cap 0 0 06/18/2009 06/25/2009 mg capsule 3 times daily for 7 days. documented in this encounter Discharge Disposition Disposition Code Departure Means Destination Home or Self Care Walk-out documented in this encounter ED Notes Jimmie Olguin MD - 06/18/2009 0053 EST DOS: 06/17/2009 Chief Complaint Patient presents with ??? Mass Pt c/o lump under chin x 5 days, states it hurts to swallow, talk, and yawn. Pt got chin pierced 2 weeks ago. Patient is a 19 y.o. female presenting with mass. The history is provided by the patient. Mass Episode Onset: several days of tenderness under chin. The onset was gradual. The problem has not changed since onset. Pertinent negatives include no fever. Review of Systems Constitutional: Negative for fever. All other systems reviewed and are negative. Past Medical History Diagnosis Date ??? Migraine ??? Acid reflux ??? 2007 ??? Asthma ??? Varicella infection, resolved noted 1994 ??? Depressive disorder noted 08/11/2008 ??? Anxiety states noted 11/03/2008 ??? Irritable bowel syndrome No past surgical history on file. Allergies Allergen Reactions ??? Sulfa (Sulfonamide Antibiotics) History Substance Use Topics ??? Tobacco Use: Yes -- 0.5 packs/day ??? Alcohol Use: No No family history on file. BP 145/72 Pulse 86 Temp 37 ??C (98.6 ??F) Resp 18 SpO2 100% Physical Exam Nursing note and vitals reviewed. Constitutional: She appears well-developed and well-nourished. HENT: Head: Normocephalic and atraumatic. Mouth/Throat: Oropharynx is clear and moist. Submental node palpable and tender Radiology orders: None Procedures ED Course: Will treat with abx and discharge I performed a history and exam of Renetta Bradley and discussed the case with the resident. I reviewed this individual's note and I concur with the documented findings and plan of care. Discharge Prescriptions New Prescriptions No Discharge Prescriptions for this patient MDM Number of Diagnoses and Management Options Lymphadenopathy: General comments: 3 Encounter Diagnoses Code Name Primary? Qualifier ??? 785.6AS Lymphadenopathy PCP: Carmela Sanchez MD 06/18/2009 1:01 AM Surinder Lawrence - 06/18/2009 0003 EST Pt complaining of lump on chin and worried about infection due to recent piercing of lip. No redness or swelling, no discharge or open area, no lump palpable documented in this encounter Miscellaneous Notes Scanned Note-Null - Inpatient, MD Rosemarie - 06/21/2009 1406 EDT D Resident - Meredith Ayoub MD - 06/18/2009 0052 EST DOS: 06/17/2009 Chief Complaint Patient presents with ??? Mass Pt c/o lump under chin x 5 days, states it hurts to swallow, talk, and yawn. Pt got chin pierced 2 weeks ago. Patient is a 19 y.o. female presenting with mass. The history is provided by the patient. Mass The current episode started 3 to 5 days ago. The onset was gradual. Pertinent negatives include no fever, no abdominal pain, no diarrhea, no nausea, no vomiting, no congestion, no mouth sores, no rhinorrhea, no sore throat, no neck pain and no rash. Noticed submental mass 5 days ago that is gradually growing in size, after lower lip piercing 2 weeks ago. Tender to touch, and hurts when she uses her mouth (talking, chewing). Denies fevers or chills. No trouble swallowing, SOB, other oral lumps or sores. Piercing site is healing well. Review of Systems Constitutional: Negative for fever, chills, diaphoresis and appetite change. HENT: Positive for facial swelling. Negative for congestion, sore throat, rhinorrhea, drooling, mouth sores, trouble swallowing, neck pain, neck stiffness, dental problem, voice change and sinus pressure. Eyes: Negative for visual disturbance. Respiratory: Negative for shortness of breath. Cardiovascular: Negative for chest pain. Gastrointestinal: Negative for nausea, vomiting, abdominal pain and diarrhea. Skin: Negative for rash, color change and wound. Past Medical History Diagnosis Date ??? Migraine ??? Acid reflux ??? 2007 ??? Asthma ??? Varicella infection, resolved noted 1994 ??? Depressive disorder noted 08/11/2008 ??? Anxiety states noted 11/03/2008 ??? Irritable bowel syndrome History reviewed. No pertinent past surgical history. Allergies Allergen Reactions ??? Sulfa (Sulfonamide Antibiotics) History Substance Use Topics ??? Tobacco Use: Yes -- 0.5 packs/day ??? Alcohol Use: No History reviewed. No pertinent family history. BP 145/72 Pulse 86 Temp 37 ??C (98.6 ??F) Resp 18 SpO2 100% Physical Exam Constitutional: She is oriented. She appears well-developed and well-nourished. No distress. HENT: Head: Normocephalic and atraumatic. Right Ear: External ear normal. Left Ear: External ear normal. Nose: Nose normal. Mouth/Throat: Oropharynx is clear and moist. Small (<1cm) submental mass, tender, possibly node. No erythema, no external wound, no swelling,no fluctuance or crepitance. Neck: Normal range of motion. Neck supple. Cardiovascular: Normal rate, regular rhythm and normal heart sounds. Pulmonary/Chest: Effort normal and breath sounds normal. Lymphadenopathy: She has no cervical adenopathy. Neurological: She is alert and oriented. No cranial nerve deficit. Skin: Skin is dry. No rash noted. No erythema. Radiology orders: None Procedures ED Course: Patient reassured that this most likely represents a reactive lymph node and has no concerning signsof deep infection or abscess. Started on antibiotics and instructed to follow up with her primary care. Return to the ED if symptoms worsen or she develops new symptoms like fevers, chills, or enlargedmass. Discharge Prescriptions New Prescriptions CLINDAMYCIN (CLEOCIN) 150 MG CAPSULE Take 1 Cap by mouth 3 times daily for 7 days. MDM Number of Diagnoses and Management Options Lymphadenopathy: Encounter Diagnoses Code Name Primary? Qualifier ??? 785.6AS Lymphadenopathy PCP: Carmela Sanchez MD 06/18/2009 12:52 AM documented in this encounter Plan of Treatment Not on filedocumented as of this encounter Visit Diagnoses Diagnosis Lymphadenopathy Enlargement of lymph nodes documented in this encounter Discontinued Medications Medication Sig Discontinue Reason Start Date End Date NAPROXEN ORAL Take by mouth. Therapy completed 010 documented as of this encounter Active and Recently Administered Medications Orders Medications Ordered That Might Not Have Count Last Ord ered Date First Ordered Date Been Administered clindamycin (CLEOCIN) capsule 3 06/18/2009 clindamycin 150 mg cap (CLEOCIN) 150 mg 1 06/19/19 10 Starter Pack Cap documented in this encounter Care Teams Polysomnography Technologist Relationship Specialty Start Date End Date Carmela Sanchez MD PCP - General 07/30/08 08/13/[address] [place] [phone] documented as of this encounter
--- OUTSIDE RECORDS SUMMARY | 2021-10-28 15:13 | XMS_ITS | Encounter Summary ---
:1990 Author Organization [facility] Address [address] [place] [address] Care Team Providers Name Role Phone Carmela Sanchez MD Primary Care Provider Reason for Referral Consult, Test and Treat (Routine) - Closed Specialty Diagnoses / Procedures Referred By Contact Refer red To Contact Rehab Therapies Diagnoses Neck pain Thoracic back pain Tricia Mosley PA [facility] [address] [address] Fax: Referral ID Status Reason Start Date Expiration Date Visits V isits Requested Authorized [id number] Closed Specialty 11/26/2009 1 1 Services Required Question Answer Reason for Request: thoracic back pain, neck jorge n Date of Onset or Injury: 11-21-09 Reason for Visit Reason Comments Back Pain and neck pain-went to walkin yesterday. Stress due to work-has been in PT for back pain before. would like MRI and referral to PT Encounter Details Date Type Department Care Team Description 11/26/2009 Office Visit [facility] Tricia Mosley Tho racic back pain; Family Medicine - CARMELA Neck pain [facility] [address] [place] [id number] Social History Tobacco Use Types Packs/Day Years Used Date Current Every Day Smoker Cigarettes 0.5 7 Alcohol Use Standard Drinks/Week Comments No 0 (1 standard drink = 0.6 oz pure alcoho l) Food Insecurity Answer Date Recorded Within the past 12 months, you worried that your food Andrew corado 06/20/2019 would run out before you got money to buy more. Within the past 12 months, the food you bought just Never tr ue 06/20/2019 didn't last and you didn't have money to get more. Sex Assigned at Date Recorded Female 02/20/2019 13:04 EST documented as of this encounter Last Filed Vital Signs Vital Sign Reading Time Taken Comments Blood Pressure 110/70 11/26/2009923 EDT Pulse 78 11/26/2009923 EDT reg Temperature - - Respiratory Rate - - Oxygen Saturation - - Inhaled Oxygen Concentration - - Weight 77.6 kg (171 lb) 11/26/2009923 EDT Height - - Body Mass Index 28.46 11/01/2009 1302 EDT documented in this encounter Progress Notes Tricia Mosley - 11/26/2009 0942 EDT Images from the original note were not included. Subjective: Patient ID: Renetta Bradley is an 19 y.o. female. Chief Complaint Patient presents with ??? Back Pain and neck pain-went to walkin yesterday. Stress due to work-has been in PT for back pain before. would like MRI and referral to PT HPI Comments: [facility] for [facility]/neck [facility], seen yesterday. Needs a referral for PT. Long history of low back pain s/p injury related to cheerleading at age 16 when she twisted my back. Never had back evaluated with imaging at that time. Believed it to be muscle related which would resolve in time. Patient has undergone PT at [facility] which was helpful. At one point, PT had recommended MRI if symptoms worsened. 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 Job responsibilities include bending, lifting, moving, picking up items. Has to belt picker 50 trash cans and empty them at the end of the night. Since beginning work, pain is now more upper back and neck. Back Pain This is a new problem. The current episode started in the past 7 days. The problem occurs constantly. The problem has been gradually worsening since onset. The pain is present in the thoracic spine (and neck). The quality of the pain is described as aching (sharp and ). The pain does not radiate. The pain is at a severity of 10/10. The pain is severe. The symptoms are aggravated by bending and sitting (lifting). Worse during: worse in the am. Stiffness is present all day. Pertinent negatives includeno bladder incontinence, bowel incontinence, leg pain, numbness, paresthesias, perianal numbness, tingling or weakness. She has tried muscle relaxant (robaxin given at [facility]) for the symptoms. The treatment provided mild relief. Patient Active Problem List Diagnoses Code ??? Tobacco Abuse 305.1U ??? Contraceptive Management V25.9B ??? Left shoulder pain 719.41X ??? Knee [...] to encounter Medication Sig Dispense Refill ??? methocarbamol (ROBAXIN) 500 mg tablet Take by mouth. One to two tablets by mouth every 6-8 hoursas needed for pain/spasm 25 Tab 0 ??? fluoxetine (PROZAC) 10 mg capsule Take 1 Cap by mouth daily. Take 20mg and 10mg cap together 30 Cap 5 ??? fluoxetine (PROZAC) 20 mg capsule Take 1 Cap by mouth daily. Take 20mg and 10mg cap together 30 Cap 5 ??? omeprazole (PRILOSEC) 20 mg capsule Take 1 Cap by mouth daily. 30 Cap 5 ??? ibuprofen (MOTRIN) 800 mg tablet Take 1 Tab by mouth as needed for Pain. 100 Tab 3 ??? dicyclomine (BENTYL) 20 mg tablet Take 20 mg by mouth as needed. ??? albuterol (VENTOLIN HFA) 90 mcg/Actuation inhaler Inhale 2 Puffs as directed as needed for Wheezing. ??? Etonogestrel (IMPLANON) 68 mg Impl by Subdermal route. Allergies Allergen Reactions ??? Sulfa (Sulfonamide Antibiotics) ??? Bee Pollens Anaphylaxis Social History Substance Use Topics ??? Tobacco Use: Yes -- 0.5 packs/day for 7 years ??? Alcohol Use: No Review of Systems HENT: Positive for neck pain. Genitourinary: Negative for bladder incontinence. Musculoskeletal: Positive for back pain. Neurological: Negative for tingling, weakness and numbness. - See HPI Objective: BP 110/70 Pulse 78 Wt 77.565 kg (171 lb) Physical Exam Constitutional: She is oriented to person, place, and time. She appears well- nourished. No distress. Appears uncomfortable Neck: Neck supple. Musculoskeletal: Cervical back: She exhibits decreased range of motion and tenderness. She exhibits no bony tenderness, no swelling, no edema, no deformity, no laceration, no pain, no spasm and normal pulse. Thoracic back: She exhibits tenderness. She exhibits normal range of motion, no bony tenderness, noswelling, no edema, no deformity, no laceration, no pain, no spasm and normal pulse. Back: Upper and lower extremity strength 4/5 throughout. Sensation to light touch in tact. DP/radial pulses 2+ No foot drop. Negative SLR, CLR Neurological: She is alert and oriented to person, place, and time. She has normal reflexes. No cranial nerve deficit. Coordination normal. Skin: Skin is warm and dry. Assessment: Encounter Diagnoses Name Primary? Thoracic back pain ??? Neck pain likely muscular in origin Plan: Renetta was seen today for back pain. Diagnoses and associated orders for this visit: Thoracic back pain - Ambulatory Consult Physical Therapy Neck pain - Ambulatory Consult Physical Therapy Believe pain is muscular in origin based on history and PE. Will defer MRI today until PT evaluation. Continue with Robaxin as previously prescribed (avoid when driving, operating heavy machinery, alcohol use) NSAIDs, moist heat Light ROM to avoid further stiffness Avoid exacerbating maneuvers. Follow up as necessary. Patient Education Topic: as above Method: Verbal Taught to: Patient Barriers: None Outcomes: verbalized understanding Signature: CARMELA Haque documented in this encounter Plan of Treatment Scheduled Referrals Name Type Priority Associated Diagnoses Order S chedule AMB CONSULT Outpatient Referral Routine Neck Pain Ordered: PHYSICAL THERAPY Thoracic Back Pain 11/26 documented as of this encounter Visit Diagnoses Diagnosis Thoracic back pain Pain in thoracic spine Neck pain Cervicalgia documented in this encounter Care Teams Putty And Patch Worker Relationship Specialty Start Date End Date Carmela Sanchez MD PCP - General 07/30/08 08/13/[address] [place] [phone] documented as of this encounter
--- OUTSIDE RECORDS SUMMARY | 2021-10-28 15:13 | XMS_ITS | Encounter Summary ---
:1990 Author Organization [facility] Address [address] [place] [address] Care Team Providers Name Role Phone Carmela Sanchez MD Primary Care Provider Encounter Details Date Type Department Care Team Description 12/14/2009 Documentation Visit [facility] Barks[facility] Therapy - J, PT [facility] [place] [address] [place] [phone] Social History Tobacco Use Types Packs/Day [...] documented as of this encounter Progress Notes Braulio Barksdale, PT - 12/14/2009 0940 EDT [facility] ([facility] [address] [facility] [phone] Physical Therapy Contact Note The patient failed to show for today's scheduled appointment. BRAULIO BARKSDALE, PT 12/14/2009 9:40 documented in this encounter Plan of Treatment Not on filedocumented as of this encounter Visit Diagnoses Not on filedocumented in this encounter Care Teams Roof Technician Relationship Specialty Start Date End Date Carmela Sanchez MD PCP - General 07/30/08 08/13/[address] [place] [phone] documented as of this encounter
--- OUTSIDE RECORDS SUMMARY | 2021-10-28 15:13 | XMS_ITS | Encounter Summary ---
:[address] [facility] Address [address] [place] [address] Care Team Providers Name Role Phone Carmela Sanchez MD Primary Care Provider Reason for Visit Reason Comments Pelvic Pain Patient states,I have cao d NETWORK [employer]ER and they feel I have PID. Here with nausea,abdominal pain and cr amping. Started menses today and now really uncomfortable. Encounter Details Date Type Department Care Team Description 03/20/[address] [facility] Cedrick Alba MD [address] [facility] [place] [address] PID (pelvic inflammatory disease); Emergency Department Emergency, MD Jeff Abdominal pain - [address] [phone] Social History Tobacco Use Types Packs/Day Years [...] Sign Reading Time Taken Comments Blood Pressure 101/57 03/20/20102052 EST Pulse 122 03/20/2010 160 EST Temperature 36.4 ??C (97.5 ??F) 03/20/2010 1602 EST Respiratory Rate 16 03/20/20102052 EST Oxygen Saturation 100% 03/20/20102052 EST Inhaled Oxygen Concentration - - Weight 71.2 kg (157 lb) 03/20/2010 160 EST Height 165.1 cm (5' 5) 03/20/2010 160 EST Body Mass Index 26.13 03/20/2010 160 EST documented in this encounter Discharge Instructions Cedrick Schultz MD - 03/20/2010 1) likeliest diagnosis at this point is pelvic inflammatory disease. You should improve with the ceftriaxone we gave you here, and the 10 days of doxycycline. 2) zofran for vomiting. 3) ibuprofen for pain 4) return for increasing pain, vomiting, feeling sicker 5) While the diagnosis today is probably PID, if you worsen we will need to think about other possibilities. I do not think it is appendicitis today, or other medical problem 6) Return to the ER immediately if the pain worsens, is severe or associated with fever, vomiting, blood in the vomit or in the stool, or for other concerning symptoms. 7) If the pain is not improved considerably in 8-12 hours, please call your doctor to be seen immediately, or return to the ER. documented in this encounter Medications at Time of Discharge Medication Sig Dispensed Refills Start Date End Date ACETAMINOPHEN (TYLENOL Take by mouth. 0 06/05/2010 ORAL) albuterol (VENTOLIN HFA) Inhale 2 Puffs as 0 04/13/2010 90 mcg/Actuation inhaler directed as needed for Wheezing. dicyclomine (BENTYL) 20 Take 20 mg by mouth 0 06/05/2010 mg tablet as needed. doxycycline (VIBRAMYCIN) Take 1 Cap by mouth 24 Cap 0 04/13/2010 100 mg capsule 2 times daily. fluoxetine (PROZAC) 10 mg Take 1 Cap by mouth 30 Cap 5 0 11/01/2009 04/13/2010 capsuleIndications: daily. Take 20mg and Depression 10mg cap together ibuprofen (MOTRIN) 800 mg Take 1 Tab by mouth 100 Tab 3 0 08/19/2009 07/22/2010 tabletIndications: Back as needed for Pain. pain meclizine (ANTIVERT) 25 Take 1 Tab by mouth 10 Tab 0 04/13/2010 mg tablet 3 times daily as needed. methocarbamol (ROBAXIN) Take 1,000 mg by 0 200904/13/2010 500 mg tablet mouth daily as needed. metronidazole (FLAGYL) Take 1 Tab by mouth 20 Tab 0 03/0904/13/2010 500 mg tablet 2 times daily. naproxen sodium (ALEVE) Take 220 mg by mouth 0 04/13/2010 220 mg tablet every 12 hours. omeprazole (PRILOSEC) 20 Take 1 Cap by mouth 30 Cap 5 09/12/2010 mg capsuleIndications: daily. GERD (gastroesophageal reflux disease) documented as of this encounter Ordered Prescriptions Prescription Sig Dispensed Refills Start Date End Date doxycycline (VIBRAMYCIN) Take 1 Cap by 24 Cap 0 03/20/20 10 04/13/2010 100 mg capsule mouth 2 times daily. metronidazole (FLAGYL) 500 Take 1 Tab by 20 Tab 0 200904/13/2010 mg tablet mouth 2 times daily. documented in this encounter Discharge Disposition Disposition Code Departure Means Destination Home or Self Care documented in this encounter ED Notes Leti Baldwin RN - 03/20/20102053 EST Pt home with boyfriend Leti Slade RN - 03/20/2010 1820 EST Pelvic done by Dr Alba with Dawn Baldwin RN present. Pt tolerated well Cedrick Stewart MD - 03/20/2010 1753 EST DOS: 03/20/2010 Chief Complaint Patient presents with ??? Pelvic Pain Patient states,I have called NETWORK [employer]ER and they feel I have PID. Here with nausea,abdominal pain and cramping. Started menses today and now really uncomfortable. The patient is a 20 y.o. female who presents today with Pelvic Pain HPI Comments: 20-year-old female presents with increasing abdominal pain, though no nausea, vomiting, and also with bloody vaginal discharge starting yesterday. She called her head scorer, who yesterday said her symptoms sounded like PID. Of note, the patient was treated recently for positive Chlamydia test. She had a pelvic exam in February, had cultures sent. Provider reportedly called her back saying her chlamydia test was positive, gonorrhea test negative. Based on inability to reach this patient, she started her Chlamydia on approximately March 09, azithromycin 1 g. She comes in today with lower, centralabdominal pain, no progression in vaginal bleeding. She feels now that she may have started her period. abdominal pain is central, midline. Crampy, waxing and waning. She comes in with her boyfriend, with whom she has recently had sex, but each time with condoms. Second time she had sex with her current partner, 3 days ago, she was uncomfortable, had pain, and did not complete. She has not had fevers, chills. She has not had any dysuria. No history of STI prior to this recent diagnosis of Chlamydia. Current partner has no symptoms. Unclear whether or not her other partner has symptoms. I have reviewed the patient's past medical and past surgical history. History review: 02/24/2010: Cervical culture positive for Chlamydia. Notes in her system suggest that patient then had 1 g azithromycin called in, but starting 12 one approximately. She was unreachable, did not have her phone for 2 or 3 weeks. Review of Systems Constitutional: Negative for fever and chills. HENT: Negative for congestion, rhinorrhea and neck stiffness. Eyes: Negative for visual disturbance. Respiratory: Negative for shortness of breath. Cardiovascular: Negative for chest pain. Gastrointestinal: Negative for abdominal pain, diarrhea and blood in stool. Genitourinary: Positive for pelvic pain and dyspareunia. Negative for dysuria, frequency, flank painand genital sore. Musculoskeletal: Negative for back pain. Skin: Negative [...] Pollens Anaphylaxis History Substance Use Topics ??? Tobacco Use: Yes -- 0.5 packs/day for 7 years ??? Alcohol Use: Yes occassionally Family History Problem Relation Age of Onset ??? Depression Mother ??? Depression Maternal Grandfather severe Vital Signs Temp: 36.4 ??C (97.5 ??F) Temp src: Tympanic Pulse: 122 Resp: 16 SpO2: 99 % BP: 112/64 mmHg BP Device: BP Machine Patient Position: Sitting BP Cuff Location: Right arm O2 Device: None (Room air) Physical Exam Nursing note and vitals reviewed. Constitutional: She is oriented to person, place, and time. She appears well- developed and well-nourished. Nontoxic-appearing Afebrile, tachycardic HENT: Head: Normocephalic and atraumatic. Mouth/Throat: Oropharynx is clear and moist. Eyes: Pupils are equal, round, and reactive to light. Right eye exhibits no discharge. Left eye exhibits no discharge. No scleral icterus. Neck: Normal range of motion. Neck supple. Cardiovascular: Intact distal pulses. No murmur heard. Pulmonary/Chest: No respiratory distress. She has no wheezes. Abdominal: She exhibits no distension. Tenderness is present. suprapubic discomfort midline. Genitourinary: There is no rash, tenderness or lesion on the right labia. There is no rash, tenderness or lesion on the left labia. Cervix exhibits motion tenderness ( mild to moderate) and discharge (mild, More mucoid than purulent). Right adnexum displays no tenderness. Left adnexum displays no tenderness. There is bleeding ( Scant) around the vagina. No foreign body around the vagina. No discharge found. Musculoskeletal: She exhibits no edema and no tenderness. Neurological: She is alert and oriented to person, place, and time. Skin: Skin is warm and dry. No rash (suprapubic discomfort midline.) noted. Psychiatric: She has a normal mood and affect. Radiology orders: None Procedures ED Course: based on prior treatment for Chlamydia urethritis, and progression of symptoms to suggest PID, I sent cultures again. I also have started treatment for outpatient PID therapy. She will be able to go home, based on her response to pain medication, IV fluids, and the absence of vomiting or systemic toxicity. She reports that her partner does not need treatment, but he may get checked out at [facility] just in case. He does not want a prescription for Chlamydia therapy. This patient was given usual and customary return precautions. Looks well at discharge. Will followup with Dr. Rivera, this week, Depending on her symptoms. Discharge Prescriptions New Prescriptions No Discharge Prescriptions for this patient MDM Number of Diagnoses or Management Options Abdominal pain: PID (pelvic inflammatory disease): Diagnosis management comments: 5 Amount and/or Complexity of Data Reviewed Clinical lab tests: ordered and reviewed Review and summarize past medical records: yes 1. PID (pelvic inflammatory disease) (614.9E) 2. Abdominal pain (789.00AP) PCP: Carmela Sanchez MD 03/20/2010 17:53 Ralph Church - 03/20/2010 1738 EST Blood drawn via saline lock per protocol, tiger and purple tube(s) sent to lab per order. Aleta Hurst RN - 03/20/2010 1604 EST Chlamydia has been treated she states, but I might need a stronger dose of the medicines. Had intercourse 3 nights ago and condom was used.Patient informs me. documented in this encounter Miscellaneous Notes Scanned Note-Null - Inpatient, MD Rosemarie - 03/20/2010 0000 EST documented in this encounter Plan of Treatment Not on filedocumented as of this encounter Procedures Procedure Name Priority Date/Time Associated Comments Diagnosis CHLAMYDIA/N. Routine 03/20/2010 18:20 Results for this GONORRHOEAE AMPLIFIED EST proced ure are in RNA the results section. POCT TEST, STAT 03/20/2010 17:40 Res ults for this VISUAL READ EST procedure are i n the results section. POCT URINE DIPSTICK, STAT 03/20/2010 17:38 Res ults for this CLINITEK EST procedure are i n the results section. COMPLETE BLOOD COUNT STAT 03/20/2010 17:32 Res ults for this AND DIFFERENTIAL EST procedure a re in the results section. BUN STAT 03/20/2010 17:32 Results for this EST procedure are i n the results section. CREATININE STAT 03/20/2010 17:32 Results for this EST procedure are i n the results section. documented in this encounter Results CHLAMYDIA/GC AMPLIFIED (03/20/2010 18:20 EST) Specimen Cervix [facility] Chlamydia Result CHLAMYDIA TRACHOMATIS DNA de tected by carriage rider mediated amplification. [facility] GC Result No Neisseria gonorrhoeae DNA detected by carriage rider mediated amplification. [facility] Specimen Other (qualifier value) Performing Organization Address City/State/ZIP Code Phon e Number [facility] [address] [place] [address] SERVICES [facility] [address] [place] [address] POCT URINE TEST (03/20/2010 17:40 EST) Pathologist Sig nature Test, Urine, Negative Pending, Negative POINT OF CARE POC Control Line Present Yes POINT OF CARE Background Clear? Yes POINT OF CARE Specimen Urine (substance) Performing Organization Address City/State/ZIP Code Phon e Number [facility] POINT OF CARE POINT OF CARE (ABNORMAL) POCT URINE DIPSTICK (03/20/2010 17:38 EST) Pathologist Sig nature Color, UA Claudia POINT OF CARE Clarity, UA Cloudy POINT OF CARE Glucose, UA Negative Negative mg/dL POINT OF CARE Bilirubin, UA Negative Negative POINT OF CARE Ketones, UA Trace (A) Negative mg/dL POINT OF CARE Spec Grav, UA 1.020 1.010, 1.015, 1.020, POINT OF CARE 1.025 Blood, UA Negative Negative POINT OF CARE pH, UA 7.0 4.6 - 8.0 POINT OF CARE Protein, UA Negative Negative mg/dL POINT OF CARE Urobilinogen, UA 1.0 0.2 - 1.0 E.U./dL POINT OF CARE Nitrite, UA Negative Negative POINT OF CARE Leuk Esterase Negative Negative POINT OF CARE Comment POINT OF CARE Specimen Urine (substance) Performing Organization Address City/[facility]/ZIP Code Phon e Number [facility] POINT OF CARE POINT OF CARE CREATININE (03/20/2010 17:32 EST) Pathologist Sig nature Creatinine 0.70 0.7 - 1.5 mg/dl [facility] GFR, Calculated >60 ml/min/1.73m2 [facility] Specimen Blood specimen (specimen) Performing Organization Address City/[facility]/ZIP [facility] Phon e Number [facility] [address] [place] [address] SERVICES [facility] [address] [place] [address] BUN (03/20/2010 17:32 EST) Pathologist Sig nature BUN 10 10 - 26 mg/dl [facility] Specimen Blood specimen (specimen) Performing Organization Address [facility]/ZIP [facility] Phon e Number [facility] [address] [place] [address] SERVICES [facility] [address] [place] [address] (ABNORMAL) HEMAGRAM AND DIFFERENTIAL (03/20/2010 17:32 EST) Pathologist Sig nature WBC 10.83 4.0 - 12.4 K/cmm [facility] RBC 4.53 3.86 - 5.04 M/cmm [facility] Hemoglobin 14.7 11.6 - 15.2 gm/dl [facility] HCT 42.6 34.9 - 44.4 % [facility] MCV 94 81 - 98 fl [facility] MCH 32.5 26.7 - 33.3 pg [facility] MCHC 34.5 32.1 - 35.9 gm/dl [facility] PLT 223 141 - 320 K/cmm [facility] RDW-CV 13.2 11.7 - 14.6 % [facility] Neutrophils 76.6 45.5 - 79.7 % [facility] Lymphocytes 18.1 15.0 - 46.8 % [facility] Monocytes 2.1 1.8 - 12.0 % [facility] Eosinophils 3.2 0.6 - 6.9 % [facility] Basophils 0.0 (L) 0.2 - 1.4 % [facility] ABS Neutrophils 8.30 2.20 - 8.85 K/cmm [facility] ABS Lymphs 1.96 1.09 - 3.30 K/cmm [facility] ABS Monocytes 0.23 0.1 - 0.8 K/cmm [facility] ABS Eosinophils 0.34 0.03 - 0.61 K/cmm [facility] ABS Basophils 0.00 (L) 0.01 - 0.11 K/cmm [facility] Type of Diff: Automated [facility] Specimen Blood specimen (specimen) Performing Organization Address City/State/ZIP Code Phon e Number [facility] [address] [place] [address] SERVICES [facility] [address] [place] [address] documented in this encounter Visit Diagnoses Diagnosis PID (pelvic inflammatory disease) Unspecified inflammatory disease of fema le pelvic organs and tissues Abdominal pain Abdominal pain, unspecified site documented in this encounter Administered Medications Inactive Administered Medications - up to 3 most recent administrations Medication Order MAR Action Action Date Dose Rate Site cefTRIAXone (ROCEPHIN) injection 250 Given 03/20/2010 18:48 EST 250 mg mg 250 mg, intravenous, ONCE, 1 dose, Starting on 03/20/10 at 1900, Until 03/20/10 at 1848, STAT doxycycline (VIBRA-TABS) tablet 100 mg Given 03/20/2010 18:47 EST 100 mg 100 mg, oral, NOW X1, 1 dose, On 03/20/10 at 1900, STAT HYDROmorphone (DILAUDID) tablet 4 mg Given 03/20/2010 20:52 EST 4 mg 4 mg, oral, NOW X1, 1 dose, On 03/20/10 at 2045, STAT HYDROmorphone (PF) (DILAUDID) 1 mg/mL injection 1 Given 03/20/2010 17:47 EST 1 mg mg 1 mg, intravenous, NOW X1, 1 dose, On 12/12/10 at 1745, STAT ondansetron (PF) (ZOFRAN) injection 4 mg Given 03/20/2010 17:46 EST 4 mg 4 mg, intravenous, NOW X1, 1 dose, On 03/20/10 at 1745, STAT ondansetron (ZOFRAN-ODT) disintegrating tablet 4 Given 03/20/2010 20:53 EST 4 mg mg 4 mg, oral, PRN, Starting on 03/20/10 at 2022, Until 03/20/10 at 2254, Nausea, STAT sodium chloride 0.9 % 1,000 mL BOLUS Given 03/20/2010 17:45 EST 1,000 mL Right A rm 1,000 mL, intravenous, ONCE, 1 dose, Starting on 03/20/10 at 1745, Until 03/20/10 at 1745, STAT documented in this encounter Historical Medications This list may reflect changes made after this encounter. Medication Sig Dispensed Refills Start Date End Date ACETAMINOPHEN (TYLENOL Take by mouth. 0 06/05/2010 ORAL) naproxen sodium (ALEVE) 220 Take 220 mg by 0 04/13/2010 mg tablet mouth every 12 hours. added in this encounter Active and Recently Administered Medications Times are shown in EST. Scheduled Medication Order 03/18/2010 03/19/2010 03/20/2010 cefTRIAXone (ROCEPHIN) injection 250 mg (COMPLETED) 1847 (Given - Provider: Leti Baldwin RN) 250 mg, Intravenous, ONCE, 1 dose, First dose on 03/20/10 at 1900 doxycycline (VIBRA-TABS) tablet 100 mg (COMPLETED) 1846 (Given - Provider: Leti Baldwin RN) 100 mg, Oral, NOW X1, 1 dose, 03/20/10 at 1900 HYDROmorphone (DILAUDID) tablet 4 mg (COMPLETED) 2051 (Given - Provider: Leti Baldwin RN - Comment: 2 tabs sent home with pt with instructions on use) 4 mg, Oral, NOW X1, 1 dose, 03/20/10 at 2044 HYDROmorphone (PF) (DILAUDID) 1 mg/mL injection 1 mg (COMPLETED) 1746 (Given - Provider: Leti Baldwin RN) 1 mg, Intravenous, NOW X1, 1 dose, 03/20/10 at 1745 ondansetron (PF) (ZOFRAN) injection 4 mg (COMPLETED) 174 (Given - Provider: Leti Baldwin, KELSI) 4 mg, Intravenous, NOW X1, 1 dose, 03/20/10 at 1745 sodium chloride 0.9 % 1,000 mL BOLUS (COMPLETED) 174 (Given - Provider: Ralph Lott)1838 (Completed - Provider: Leti Baldwin, RN) 1,000 mL, Intravenous, ONCE, 1 dose, First dose on 03/20/10 at 1745 PRN Medication Order 03/18/2010 03/19/2010 03/20/2010 ondansetron (ZOFRAN-ODT) disintegrating tablet 4 mg (CANCELED) 2052 (Given - Provider: Leti Baldwin RN - Comment: one tablet sent home with pt with instructions on use) 4 mg, Oral, PRN, Starting 03/20/10 a t 2021, Until 03/20/10 at 2254, Nausea documented in this encounter Orders Nursing Count Last Ordered Date First Ordered Date INSERT SALINE LOCK 1 03/20/2010 documented in this encounter Care Teams Manager Manufacturing Relationship Specialty Start Date End Date Carmela Sanchez MD PCP - General 07/30/[address] [place] [id number] documented as of this encounter
--- OUTSIDE RECORDS SUMMARY | 2021-10-28 15:13 | XMS_ITS | Encounter Summary ---
:1990 Author Organization [facility] Address [address] [place] [address] Care Team Providers Name Role Phone Carmela Sanchez MD Primary Care Provider Reason for Visit Reason Comments Migraine ? referral for a ct scan Encounter Details Date Type Department Care Team Description 08/17/[address] [facility] Thor Pittman HA (ingrid kelley) (Primary Dx); Family Medicine - Anxiety; [address] [phone] Social History Tobacco Use Types Packs/Day Years [...] Sign Reading Time Taken Comments Blood Pressure 104/79 08/17/2009 1500 EDT Pulse 76 08/17/2009 1500 EDT Temperature 37.4 ??C (99.4 ??F) 08/17/2009 1500 EDT Respiratory Rate - - Oxygen Saturation - - Inhaled Oxygen Concentration - - Weight 79.9 kg (176 lb 3.2 oz) 08/17/2009 1500 EDT Height - - Body Mass Index - - documented in this encounter Ordered Prescriptions Prescription Sig Dispensed Refills Start Date End Date fluoxetine (PROZAC) 20 mg Take 1 Cap by mouth 30 Cap 3 0 08/17/2009 11/01/2009 capsuleIndications: daily. Take 20mg and Anxiety 10mg cap together fluoxetine (PROZAC) 10 mg Take 1 Cap by mouth 30 Cap 3 0 08/17/2009 11/01/2009 capsuleIndications: daily. Take 20mg and Anxiety 10mg cap together documented in this encounter Progress Notes Thor Pittman MD - 08/17/2009 1527 EDT Subjective: Patient ID: Renetta Bradley is an 19 y.o. female. Chief Complaint: HPI Comments: [place] unsteady on her gait. Patient admits stress is an issue, boyfriend going into army and planning wedding. Does admit fall 2 days ago, but no head injury Migraine The history is provided by the patient. This is a recurrent problem. The pain is located in the occipital (had episode last night that started on back of head and neck. patient concerned because it is different from her normal migrain attack which is usually in the temporal region. ) region. The pain is severe. The pain does not radiate. Associated symptoms include malaise/fatigue, near- syncope and vomiting. Pertinent negatives include no fever, no shortness of breath and no nausea. She has tried NSAIDs for the symptoms. Depression Additional symptoms of the illness include attention impairment, euphoric mood and headaches. Additional symptoms of the illness do not include no anhedonia, no appetite change, no unexpected weight change or no abdominal pain. She does not admit to suicidal ideas. Anxiety Additional symptoms of the illness include attention impairment, euphoric mood and headaches. Additional symptoms of the illness do not include no anhedonia, no appetite change, no unexpected weight change or no abdominal pain. Past Medical History Diagnosis Date ??? Migraine ??? Acid reflux ??? 2007 ??? Asthma ??? Varicella infection, resolved noted 1994 ??? Depressive disorder noted 08/11/2008 ??? Anxiety states noted 11/03/2008 ??? Irritable bowel syndrome History reviewed. No pertinent family history. Current outpatient prescriptions Medication Sig Dispense Refill ??? dicyclomine (BENTYL) 20 mg tablet Take 20 mg by mouth daily. ??? albuterol (VENTOLIN HFA) 90 mcg/Actuation inhaler Inhale 2 Puffs as directed as needed for Wheezing. ??? Etonogestrel (IMPLANON) 68 mg Impl by Subdermal route. ??? omeprazole (PRILOSEC) 10 mg capsule Take 20 mg by mouth daily. ??? ibuprofen (MOTRIN) 800 mg tablet Take 1 Tab by mouth as needed for Pain. 21 Tab 0 Allergies Allergen Reactions ??? Sulfa (Sulfonamide Antibiotics) History Social History ??? Marital Status: Single Spouse Name: N/A Number of Children: N/A ??? Years of Education: N/A Occupational History ??? Not on file. Social History Main Topics ??? Tobacco Use: Yes -- 0.5 packs/day ??? Alcohol Use: No ??? Drug Use: No ??? Sexually Active: Yes -- Male partner(s) Other Topics Concern ??? Not on file Social History Narrative ??? No narrative on file Review of Systems Constitutional: Positive for malaise/fatigue. Negative for fever, diaphoresis, appetite change and unexpected weight change. Respiratory: Negative for shortness of breath. Cardiovascular: Negative for chest pain. Gastrointestinal: Positive for vomiting. Negative for nausea and abdominal pain. Genitourinary: Negative for dysuria. Musculoskeletal: Negative for myalgias. Skin: Negative for rash. Neurological: Positive for headaches. Negative for dizziness, sensory change, focal weakness and weakness. Psychiatric/Behavioral: Positive for depression. The patient is not nervous/anxious. Feeling stress Objective: Physical Exam Nursing note and vitals reviewed. Constitutional: She is oriented. She appears well-nourished. No distress. HENT: Head: Atraumatic. Right Ear: External ear normal. Left Ear: External ear normal. Nose: Nose normal. Mouth/Throat: Oropharynx is clear and moist. No oropharyngeal exudate. Eyes: Conjunctivae and extraocular motions are normal. Pupils are equal, round, and reactive to light. Right eye exhibits no discharge. Left eye exhibits no discharge. No scleral icterus. Neck: Neck supple. No tracheal deviation present. Cardiovascular: Normal rate, regular rhythm and normal heart sounds. Pulmonary/Chest: Effort normal and breath sounds normal. No respiratory distress. Abdominal: Soft. Musculoskeletal: Normal range of motion. Lymphadenopathy: She has no cervical adenopathy. Neurological: She is alert and oriented. She displays normal reflexes. No cranial nerve deficit. Sheexhibits normal muscle tone. Coordination normal. Skin: Skin is warm. Psychiatric: She has a normal mood and affect. Assessment: Encounter Diagnoses Code Name Primary? Qualifier ??? 784.0AB BYRNES (headache) Yes Plan: MR ANGIOGRAM HEAD (ANGIO ONLY), MRI HEAD ??? 300.00E Anxiety Plan: FLUOXETINE 10 MG CAP, FLUOXETINE 20 MG CAP ??? 311L Depression Plan: BYRNES- ongoing issues. Has family history of aneurysm in mother and now patient is experiencing BYRNES in different location, occipital area with some pre-syncope and vomiting. Has a lot of stress with boyfriend leaving in and wedding planning so ?tension BYRNES. With worsening and above will get MRI/MRA head Depression/anxiety- patient feels depression is well controlled and overall panic attacks have diminished, but still getting anxious 2-3 week. Will increase fluoxetine 30mg qam. Reluctant to add another type of med at the moment with BYRNES issues documented in this encounter Plan of Treatment Not on filedocumented as of this encounter Procedures Procedure Name Priority Date/Time Associated Diagnosis Comme nts MR ANGIO HEAD,BRAIN 09/15/2009 23:10 Resu lts for this WO CONTRAST EDT procedure are i n the results section. documented in this encounter Results MR ANGIO HEAD,BRAIN WO CONTRAST (09/15/2009 23:10 EDT) Anatomical Region Laterality Modality Other Specimen Narrative [facility] - 09/16/2009 15:09 EDT MRAHEAD,BRAIN W/0 CONTRAST ??Sep 15, 201 0 11:10:00 PM Clinical History: ??Rule Out: anuerysm/m ass ; Comparison: None Technique: ??Sagittal T1 FLAIR, transver se T2 FLAIR, FSE T2, diffusion and gradient echo noncontrast MR images of the brain were performed. Non-contrast 3D TOF images of COW was pe rformed with targeted MIP reformations. Findings: ??The ventricles and extra-axi al CSF spaces are normal for age. There is no mass effect or midline shift. There are no intracranial or extracranial fluid colle ctions. No cerebral edema is appreciated. Signal intensity throughout the brain and brainstem is normal. Diffusion-weighted images demons trate no abnormality. ??There is no blooming artifact appreciated on g radient sequence. The orbits are free of abnormality. On the MRA portion of the study, there i s no significant stenosis or vascular malformation identified. No ane urysm. ??The anterior and posterior circulations are unremarkable. Impression: 1. There is no evidence of intracranial mass or aneurysm. ?? I have personally reviewed the images an d the above interpretation and agree with the findings. Procedure Note Stone Davalos MD / Favian Davalos MD / Stone Davalos MD - 09/16/2009 MRAHEAD,BRAIN W/0 CONTRAST Sep 15, 2009 11:10:00 PM Clinical History: Rule Out: anuerysm/mas s ; Comparison: None Technique: Sagittal T1 FLAIR, transverse T2 FLAIR, FSE T2, diffusion and gradient echo noncontrast MR images of the brain were performed. Non-contrast 3D TOF images of COW was pe rformed with targeted MIP reformations. Findings: The ventricles and extra-axial CSF spaces are normal for age. There is no mass effect or midline shift. There are no intracranial or extracranial fluid colle ctions. No cerebral edema is appreciated. Signal intensity throughout the brain and brainstem is normal. Diffusion-weighted images demons trate no abnormality. There is no blooming artifact appreciated on g radient sequence. The orbits are free of abnormality. On the MRA portion of the study, there i s no significant stenosis or vascular malformation identified. No ane urysm. The anterior and posterior circulations are unremarkable. Impression: 1. There is no evidence of intracranial mass or aneurysm. I have personally reviewed the images an d the above interpretation and agree with the findings. Performing Organization Address City/State/ZIP Code Phon e Number [facility] documented in this encounter Visit Diagnoses Diagnosis BYRNES (headache) - Primary Headache Anxiety Anxiety state, unspecified Depression Depressive disorder, not elsewhere class ified documented in this encounter Discontinued Medications Medication Sig Discontinue Reason Start Date End Date cyclobenzaprine (FLEXERIL) Take 1 Tab by Therapy completed 05/20/19 10 08/17/2009 5 mg tabletIndications: mouth 2 times Left shoulder pain daily as needed for Muscle Spasms. documented as of this encounter Care Teams Wrapper And Preserver Relationship Specialty Start Date End Date Carmela Sanchez MD PCP - General 07/30/08 08/13/[address] [place] [phone] documented as of this encounter
--- OUTSIDE RECORDS SUMMARY | 2021-10-28 15:13 | XMS_ITS | Encounter Summary ---
:1990 Author Organization [facility] Address [address] [place] [id number] Care Team Providers Name Role Phone Carmela Sanchez MD Primary Care Provider Reason for Visit Reason Onset Date Comments Other 03/08/2010 Encounter Details Date Type Department Care Team Description 03/08/2010 Telephone [facility] Stacie Marcus RN Other Services - [facility] [address] [place] [address] Social History Tobacco Use Types [...] this encounter Miscellaneous Notes Telephone Encounter - Stacie Marcus - 03/08/2010 8067 EST I finally got in touch with Renetta and called in Zithromax one gram for her and one gram for her partner who is Tyrone Jara 89[address] Dr. Rivera. To the [facility] on [address].Mr. 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 documented in this encounter Plan of Treatment Not on filedocumented as of this encounter Visit Diagnoses Not on filedocumented in this encounter Care Teams Terrazzo Mechanic Relationship Specialty Start Date End Date Carmela Sanchez MD PCP - General 07/30/08 08/13/[address] [place] [phone] documented as of this encounter
--- OUTSIDE RECORDS SUMMARY | 2021-10-28 15:13 | XMS_ITS | Encounter Summary ---
:1990 Author Organization [facility] Address [address] [place] [id number] Care Team Providers Name Role Phone Carmela Sanchez MD Primary Care Provider Reason for Visit Reason Onset Date Comments Other 02/28/2010 Encounter Details Date Type Department Care Team Description 02/28/2010 Telephone [facility] Stacie Marcus RN Other Services - [address] [address] Social History Tobacco Use Types Packs/Day Years Used Date Current Every Day Smoker Cigarettes 0.5 Alcohol Use Standard Drinks/Week Comments Yes 0 [...] this encounter Miscellaneous Notes Telephone Encounter - Kel Rivera MD - 03/01/2010 1043 EST Stacie, When Renetta calls back please call her in zithromax, 1 gm, to be taken as soon as possible. If she wants a dose called in for her partner, get his name and order [address] him [address] Rivera elephone Encounter - Stacie Marcus - 02/28/2010 1612 EST Pt's chlamydia came back positive. i left a message at the work # for her to call me. documented in this encounter Plan of Treatment Not on filedocumented as of this encounter Visit Diagnoses Not on filedocumented in this encounter Care Teams Associate Veterinarian Relationship Specialty Start Date End Date Carmela Sanchez MD PCP - General 07/30/08 08/13/[address] [place] [phone] documented as of this encounter
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
--- OUTSIDE RECORDS SUMMARY | 2021-10-28 15:13 | XMS_ITS | Encounter Summary ---
:1990 Author Organization [facility] Address [address] [place] [id number] Care Team Providers Name Role Phone Carmela Sanchez MD Primary Care Provider Reason for Visit Reason Onset Date Comments Medication Problem 05/06/2009 Encounter Details Date Type Department Care Team Description 05/06/2009 Refill [facility] Carmela Sharma MD Medication Problem Medicine - [address] [phone] (Wo rk) Social History Tobacco Use Types [...] Telephone Encounter - Betsy Cameron RN - 05/06/2009 8509 EST Renetta will change from her OTC cold medication. Instead she will use Saline nasal spray and a mucinex type OTC to aid in breaking up her congestion. She denies fever, chills, etc. She verbalizes understanding of how some OTC med can cause problems with other Rx meds. Will call PRN. elephone Encounter - Rosalia Morley - 05/06/2009 1224 EST She is taking Fluoxetine, omeprazole, dicyclitine, and tylenol cold she is wondering if this is causing her to be nausea and shaky. documented in this encounter Plan of Treatment Not on filedocumented as of this encounter Visit Diagnoses Not on filedocumented in this encounter Care Teams Realtime Reporter Relationship Specialty Start Date End Date Carmela Sanchez MD PCP - General 07/30/08 08/13/[address] [place] [phone] documented as of this encounter
--- OUTSIDE RECORDS SUMMARY | 2021-10-28 15:13 | XMS_ITS | Encounter Summary ---
:1990 Author Organization [facility] Address [address] [place] [address] Care Team Providers Name Role Phone Carmela Sanchez MD Primary Care Provider Encounter Details Date Type Department Care Team Description 07/15/2009 Results Only *[facility], Gastroenterology - [facility] [address] [facility] [address] [facility] [address] [place] [address] [place], [place] [phone] (Wo rk) Social History Tobacco Use Types [...] Name Priority Date/Time Associated Diagnosis Comme nts 5-HYDROXYINDOLEACET Routine 07/15/2009 11:03 Resu lts for this IC ACID (5-HIAA), EDT procedure are in URINE 24HR the results section. documented in this encounter Results 5-HYDROXYINDOLEACETIC ACID (5-HIAA), URINE (07/15/2009 11:03 EDT) 5 Hydroxyindolaceticacid 3.1Reference range: <= 6.0 [place] [facility] Unit: mg/24 h LAB Performed or Referred by: [facility] Dpt of Lab Med a nd Path, [address] , [place] [address], Lab Dir: Michael rios III, MD Collection Duration 24 hours [facility] Urine Volume 1275 mL [facility] Specimen Urine (substance) Performing Organization Address City/State/ZIP Code Phon e Number [facility] [address] [place] [address] SERVICES [facility] [address] [place] [address] documented in this encounter Visit Diagnoses Not on filedocumented in this encounter Care Teams Neuropsychologist Relationship Specialty Start Date End Date Carmela Sanchez MD PCP - General 07/30/08 08/13/[address] [place] [phone] documented as of this encounter
--- OUTSIDE RECORDS SUMMARY | 2021-10-28 15:13 | XMS_ITS | Encounter Summary ---
:[address] [facility] [place] Address [address] [place] [address] Care Team Providers Name Role Phone Carmela Sanchez MD Primary Care Provider Reason for Visit Reason Comments Breast Problem brest tenderness x 3 weeks, LMP: 03/21/10, nausea, back pain. worried about an ectopic . has taked 2 home tests-both neg. Has not been using any prote ction/ control Encounter Details Date Type Department Care Team Description 04/13/2010 Office Visit [facility] Aleja Long st pain (Primary Dx); Family Medicine - PRABHU Salguero Vaginitis [address] Telida Navid [address] [place], [place] [address] [place] [address] [phone] (Wo rk) Social History Tobacco Use Types [...] Sign Reading Time Taken Comments Blood Pressure 120/80 04/13/2010 0817 EST Pulse 80 04/13/2010 0817 EST reg Temperature - - Respiratory Rate - - Oxygen Saturation - - Inhaled Oxygen Concentration - - Weight 75.3 kg (166 lb) 04/13/2010 0817 EST Height - - Body Mass Index 27.62 03/20/2010 1602 EST documented in this encounter Ordered Prescriptions Prescription Sig Dispensed Refills Start Date End Date albuterol (VENTOLIN HFA) Inhale 2 Puffs as 1 Inhaler 1 08/201002/14/2011 90 mcg/Actuation inhaler directed as needed for Wheezing. documented in this encounter Progress Notes Aleja Long PA - 05/23/2010 0829 EST [facility] [address] [place] [phone] PROGRESS/FOLLOWUP NOTE - 04/13/2010 PROBLEM: Here with breast tenderness and concerns. SUBJECTIVE: The patient comes in complaining of bilateral breast tenderness over the past three weeks. Her last period was 03/21. This was expected, but a little shorter than usual. She had Implanon out several months ago and was very forgetful about taking OCPs, so is not using anything for contraception. States she was treated for chlamydia recently at the gynecology office. She had trouble tolerating the medication. On chart review, it looks as though she had a positive chlamydia in February, a positive chlamydia in the ER in March, but she does not recall whether she took treatment for both of these episodes. She continues with some vaginal discharge and some dyspareunia. She does occasional self-breast exam and has not noted any lumps. There is no family history of breast cancer. No nipple discharge or skin changes. She has had 2 negative home tests, reports having an at age 17, is concerned about an ectopic given her and history of chlamydia. She is unclear whether she had a history of PID. Apparently was told she had some scarring in the uterus from her . OBJECTIVE: A 20-year-old, no acute distress. She is a vague historian. Blood pressure is 120/80, pulse 80, weight 166. Breasts are symmetric. She has some mild tenderness throughout. There are no distinct masses, no nipple discharge noted, no skin changes. The vaginal mucosa is red and inflamed. Thereis small amount of whitish discharge. There is no purulence. She has some tenderness noted on bimanual exam but no cervical motion tenderness. No uterine or adnexal masses noted. DIAGNOSTIC STUDIES: UPT is negative. Vaginal DENNY and saline positive for hyphae. A Gen-Probe was obtained. ASSESSMENT: Vaginitis, recent chlamydial infection and it is unclear whether she completed treatmentfor this. Breast tenderness, likely due to hormonal changes. She has had negative UPT. PLAN: She will try qdal-jzv-qdtkizt product such as Gyne-Lotrimin for the vaginal yeast infection. Await Gen-Probe and treat accordingly. If she does not resume menses in another 1 to 2 weeks would repeat the hCG. I suspect her breast tenderness will improve as she cycles through her menses. She does not desire alternate contraception. I did encourage condoms. She is aware of Plan B. She will follow up p.r.n. Verbalized understanding with no barriers. Electronically Signed by CARMELA Pepe 05/23/2010 08:29 CARMELA Pepe - CARMELA Pepe - [facility] Job ID: Doc ID: [id number] [facility] Doc ID: [id number] cc: Zuleyka Hansen RN - 04/15/2010 1100 EST Quick Note: Phone call to Renetta Patient notified that her gen probe was negative (Clamydia and Gonorrhea) Aleja Long PA - 04/13/2010 1404 EST This office note has been dictated. documented in this encounter Plan of Treatment Not on filedocumented as of this encounter Procedures Procedure Name Priority Date/Time Associated Comments Diagnosis CHLAMYDIA/N. Routine 04/13/2010 9:02 Vaginitis Results for this GONORRHOEAE AMPLIFIED EST proced ure are in RNA the results section. POCT VAGINAL WET PREP Routine 04/13/2010 8:30 Vaginitis Res ults for this INCLUDES DENNY EST procedure are i n the results section. POCT TEST, Routine 04/13/2010 8:30 Breast pain Resu lts for this VISUAL READ EST procedure are i n the results section. documented in this encounter Results CHLAMYDIA/GC AMPLIFIED (04/13/2010 9:02 EST) Specimen [facility] Description LAB Chlamydia Result No Chlamydia [facility] trachomatis DNA LAB detected by offshore wind turbine technician mediated amplification. GC Result No Neisseria [facility] gonorrhoeae DNA LAB detected by offshore wind turbine technician mediated amplification. Specimen Other (qualifier value) Performing Organization Address City/[facility]/ZIP Code Phon e Number [facility] [address] [place] [address] SERVICES [facility] [address] [place] [address] (ABNORMAL) POCT VAGINAL WET PREP (04/13/2010 8:30 EST) Pathologist Sig nature Clue Cells, POC Absent Absent POINT OF CARE Trichomonas, POC Absent Absent POINT OF CARE Yeast, POC Present (A) Absent POINT OF CARE White Blood Cells, POC Present (A) Absent POINT OF CARE Specimen Other (qualifier value) Performing Organization Address City/[facility]/ZIP Code Phon e Number [facility] POINT OF CARE POINT OF CARE POCT URINE TEST (04/13/2010 8:30 EST) Pathologist Sig nature Test, Urine, Negative Pending, Negative POINT OF CARE POC Control Line Present Yes POINT OF CARE Background Clear? Yes POINT OF CARE Specimen Urine (substance) Performing Organization Address City/[facility]/ZIP Code Phon e Number [facility] POINT OF CARE POINT OF CARE documented in this encounter Visit Diagnoses Diagnosis Breast pain - Primary Mastodynia Vaginitis Vaginitis and vulvovaginitis, unspecifie d documented in this encounter Discontinued Medications Medication Sig Discontinue Reason Start Date End Date doxycycline (VIBRAMYCIN) Take 1 Cap by Therapy completed 03/20/2010 04/13/2010 100 mg capsule mouth 2 times daily. fluoxetine (PROZAC) 10 Take 1 Cap by Patient Stopped 11/01/2009 0 04/13/2010 mg capsuleIndications: mouth daily. Take Taking Depression 20mg and 10mg cap together meclizine (ANTIVERT) 25 Take 1 Tab by Patient Stopped 03/07/2010 04/13/2010 mg tablet mouth 3 times Taking daily as needed. methocarbamol (ROBAXIN) Take 1,000 mg by Therapy completed 03/07/20 10 04/13/2010 500 mg tablet mouth daily as needed. metronidazole (FLAGYL) Take 1 Tab by Therapy completed 03/20/2010 04/13/2010 500 mg tablet mouth 2 times daily. naproxen sodium (ALEVE) Take 220 mg by Therapy completed 04/13/2010 220 mg tablet mouth every 12 hours. albuterol (VENTOLIN HFA) Inhale 2 Puffs as Reorder 04/13/2010 90 mcg/Actuation inhaler directed as needed for Wheezing. documented as of this encounter Care Teams Safety Instruction Police Officer Relationship Specialty Start Date End Date Carmela Sanchez MD PCP - General 07/30/08 08/13/[address] [place] [phone] documented as of this encounter
--- OUTSIDE RECORDS SUMMARY | 2021-10-28 15:13 | XMS_ITS | Encounter Summary ---
:1990 Author Organization [facility] Address [address] [place] [address] Care Team Providers Name Role Phone Carmela Sanchez MD Primary Care Provider Reason for Visit Reason Comments Abdominal Pain right side times 1 week Encounter Details Date Type Department Care Team Description 01/28/2010 Office Visit [facility] Kel Rivera Oth er and unspecified Women's Services - ovarian cyst (Primary Main [place] [address] [facility] Dx) [address] [place], [place] [id number] [place] [address] [phone] Social History Tobacco Use Types Packs/Day Years [...] Sign Reading Time Taken Comments Blood Pressure 130/80 01/28/2010 1443 EDT Pulse - - Temperature - - Respiratory Rate - - Oxygen Saturation - - Inhaled Oxygen Concentration - - Weight - - Height - - Body Mass Index - - documented in this encounter Progress Notes Kel Rivera MD - 01/28/2010 1658 EDT S. Seen at [facility] this weekend for severe pain. Had just started menses. Told she probably had anovarian cyst and should be seen for an ultrasound. Looks very comfortable at present. O. Sono by KW showed a resolving hemorrhagic corpus luteum on right. A. Resolving ovarian cyst. P. Return as needed. Kel Rivera MD documented in this encounter Plan of Treatment Not on filedocumented as of this encounter Procedures Procedure Name Priority Date/Time Associated Diagnosis Comme nts RELIEF OPERATOR US PELVIS Routine 01/28/2010 15:48 Other and Results fo r this TRANSVAGINAL EDT unspecified ovarian procedur e are in cyst the results section. documented in this encounter Results RELIEF OPERATOR US PELVIS TRANSVAGINAL (01/28/2010 15:48 EDT) Anatomical Region Laterality Modality Other Specimen Narrative M RADIOLOGY - 01/28/2010 15:57 EDT Indication: Pelvic pain: right lower quadrant pain. Relevant history: last period 01/21/2010 (day of cycle 8). Gynecological Ultrasonography: Uterus: normal,anteverted. Size: Longitudinal 95 mm. Anterio- poste rior 30 mm. Transverse 49 mm. Volume: 73.1 ml. Right Ovary: visible. Right Ovary size: 38 mm x 27 mm x 23 mm. Volume: 12.4 ml. Comments: There is a slightly hyperechoi c area on the right ovary measuring 10 x 14 x 16 mm that likely re presents an old corpus luteum Left Ovary: normal. Visible. Left Ovary size: 30 mm x 15 mm x 19 mm. Volume: 4.5 ml. Cul de Sac / Pouch of Jaison: no free f luid visible. Method: transvaginal ultrasound. Report Summary: Overall impression: Slightly hyperechoic area on the right ovary as described, otherwise normal RELIEF OPERATOR ultrasou nd. ??No structural cause for the patient's pain is identified. Recommendations / therapy: Patient educa kristy to findings. Follow- up: patient to follow up w/ Dr. Rivera following this ultrasound. Procedure Note 01/28/2010 Indication: Pelvic pain: right lower quadrant pain. Relevant history: last period 01/21/2010 (day of cycle 8). Gynecological Ultrasonography: Uterus: normal,anteverted. Size: Longitudinal 95 mm. Anterio- poste rior 30 mm. Transverse 49 mm. Volume: 73.1 ml. Right Ovary: visible. Right Ovary size: 38 mm x 27 mm x 23 mm. Volume: 12.4 ml. Comments: There is a slightly hyperechoi c area on the right ovary measuring 10 x 14 x 16 mm that likely re presents an old corpus luteum Left Ovary: normal. Visible. Left Ovary size: 30 mm x 15 mm x 19 mm. Volume: 4.5 ml. Cul de Sac / Pouch of Jaison: no free f luid visible. Method: transvaginal ultrasound. Report Summary: Overall impression: Slightly hyperechoic area on the right ovary as described, otherwise normal RELIEF OPERATOR ultrasou nd. No structural cause for the patient's pain is identified. Recommendations / therapy: Patient educa kristy to findings. Follow- up: patient to follow up w/ Dr. Rivera following this ultrasound. Performing Organization Address City/State/ZIP Code Phon e Number [facility] MATERNAL MEDIC[facility] documented in this encounter Visit Diagnoses Diagnosis Other and unspecified ovarian cyst - Sonal lisset documented in this encounter Care Teams Patternmaker Sample Relationship Specialty Start Date End Date Carmela Sanchez MD PCP - General 07/30/08 08/13/[address] [place] [phone] documented as of this encounter
--- OUTSIDE RECORDS SUMMARY | 2021-10-28 15:13 | XMS_ITS | Encounter Summary ---
:[address] [facility] Address [address] [place] [address] Care Team Providers Name Role Phone Carmela Sanchez MD Primary Care Provider Encounter Details Date Type Department Care Team Description 03/25/2010 Hospital Encounter [facility] Kel Rivera, Pelvic inflammatory - [facility] MD disease [address] [facility] [address] [place] [address] [phone] Social History Tobacco Use Types Packs/Day Years [...] Code Departure Means Destination Home or Self Fpc documented in this encounter Plan of Treatment Not on filedocumented as of this encounter Procedures Procedure Name Priority Date/Time Associated Diagnosis Comme nts SED RATE Routine 03/25/2010 12:45 Pelvic inflammatory Resu lts for this EST disease procedure are i n the results section. COMPLETE BLOOD COUNT Routine 03/25/2010 12:45 Pelvic inflammat ory Results for this AND DIFFERENTIAL EST disease procedure a re in the results section. C REACTIVE PROTEIN Routine 03/25/2010 12:45 Pelvic inflammator y Results for this EST disease procedure are i n the results section. documented in this encounter Results SED. RATE:CORRIEREN (03/25/2010 12:45 EST) Pathologist Sig nature Sed. Rate Westergren 5 0 - 20 mm/hr [facility] Specimen Blood specimen (specimen) Performing Organization Address City/State/ZIP Code Phon e Number [facility] [address] [place] [address] SERVICES [facility] [address] [place] [address] C-REACTIVE PROTEIN (03/25/2010 12:45 EST) Pathologist Sig nature C-Reactive Protein <0.7 <1.0 mg/dl [facility] Specimen Blood specimen (specimen) Performing Organization Address City/State/ZIP Code Phon e Number [facility] [address] [place] [address] SERVICES [facility] [address] [place] [address] (ABNORMAL) HEMAGRAM AND DIFFERENTIAL (03/25/2010 12:45 EST) Pathologist Sig nature WBC 7.46 4.0 - 12.4 K/cmm [facility] RBC 4.44 3.86 - 5.04 M/cmm [facility] Hemoglobin 14.7 11.6 - 15.2 gm/dl [facility] HCT 42.3 34.9 - 44.4 % [facility] MCV 95 81 - 98 fl [facility] MCH 33.2 26.7 - 33.3 pg [facility] MCHC 34.8 32.1 - 35.9 gm/dl [facility] PLT 217 141 - 320 K/cmm [facility] RDW-CV 12.9 11.7 - 14.6 % [facility] Neutrophils 70.5 45.5 - 79.7 % [facility] Lymphocytes 22.5 15.0 - 46.8 % [facility] Monocytes 4.8 1.8 - 12.0 % [facility] Eosinophils 2.1 0.6 - 6.9 % [facility] Basophils 0.1 (L) 0.2 - 1.4 % [facility] ABS Neutrophils 5.26 2.20 - 8.85 K/cmm [facility] ABS Lymphs 1.68 1.09 - 3.30 K/cmm [facility] ABS Monocytes 0.35 0.1 - 0.8 K/cmm [facility] ABS Eosinophils 0.15 0.03 - 0.61 K/cmm [facility] ABS Basophils 0.01 0.01 - 0.11 K/cmm [facility] Type of Diff: Automated [facility] Specimen Blood specimen (specimen) Performing Organization Address City/State/ZIP Code Phon e Number [facility] [address] [place] [address] SERVICES [facility] [address] [place] [address] documented in this encounter Visit Diagnoses Diagnosis Pelvic inflammatory disease Unspecified inflammatory disease of fema le pelvic organs and tissues documented in this encounter Care Teams Timber Framer Helper Relationship Specialty Start Date End Date Carmela Sanchez MD PCP - General 07/30/08 08/13/[address] [place] [phone] documented as of this encounter
--- OUTSIDE RECORDS SUMMARY | 2021-10-28 15:13 | XMS_ITS | Encounter Summary ---
:1990 Author Organization [facility] Address [address] [place] [address] Care Team Providers Name Role Phone Carmela Sanchez MD Primary Care Provider Encounter Details Date Type Department Care Team Description 07/15/2009 Hospital Encounter [facility] - [facility] [address] [address] [facility] [address] [phone] [place] [phone] (Wo rk) Social History Tobacco Use Types [...] Code Departure Means Destination Home or Self Group Home documented in this encounter Plan of Treatment Not on filedocumented as of this encounter Visit Diagnoses Not on filedocumented in this encounter Care Teams Credit Associate Relationship Specialty Start Date End Date Carmela Sanchez MD PCP - General 07/30/08 08/13/[address] [place] [address] [phone] documented as of this encounter
--- OUTSIDE RECORDS SUMMARY | 2021-10-28 15:13 | XMS_ITS | Encounter Summary ---
:1990 Author Organization [facility] Address [address] [place] [address] Care Team Providers Name Role Phone Carmela Sanchez MD Primary Care Provider Encounter Details Date Type Department Care Team Description 09/07/2009 Hospital Encounter [facility] - Carmela Sanchez MD Medical Office [address] [phone] [place] [phone] (Wo rk) Social History Tobacco Use Types [...] or Self Residential documented in this encounter Plan of Treatment Not on filedocumented as of this encounter Visit Diagnoses Not on filedocumented in this encounter Care Teams Acoustic Intelligence Specialist Relationship Specialty Start Date End Date Carmela Sanchez MD PCP - General 07/30/08 08/13/[address] [place] [address] [phone] documented as of this encounter
--- OUTSIDE RECORDS SUMMARY | 2021-10-28 15:13 | XMS_ITS | Encounter Summary ---
:1990 Author Organization [facility] Address [address] [place] [address] Care Team Providers Name Role Phone Carmela Sanchez MD Primary Care Provider Reason for Visit Reason Onset Date Comments Breast Problem 04/12/2010 Nausea 04/12/2010 Back Pain 04/12/2010 Encounter Details Date Type Department Care Team Description 04/12/2010 Telephone [facility] Carmela Sanchez [facility] st Problem; Nausea; Family Medicine - MD Back Pain [address] [phone] (Wo rk) Social History Tobacco Use Types [...] this encounter Miscellaneous Notes Telephone Encounter - Zuleyka Hansen RN - 04/12/2010 1525 EST Phone call to Renetta When she had her menses last month, it was not like usual. It only lasted 2-3 days. Her next period is due April 21. She has been experiencing breast tenderness and nausea for about 3 weeks. Her breasts are so sore it hurts to wear a bra. She is worried about having an eptopic . She went to the ED in March for pelvic pain and was treated for positive Chlamydia. She was told she may have PID also. Appointment for evaluation tomorrow. elephone Encounter - Pat Pitts - 04/12/2010 1032 EST Patient has been experiencing lower back pain, nausea and breast tenderness, said she has taken two home tests that have come out negative, please call, thanks. documented in this encounter Plan of Treatment Not on filedocumented as of this encounter Visit Diagnoses Not on filedocumented in this encounter Care Teams Hot Packer Relationship Specialty Start Date End Date Carmela Sanchez MD PCP - General 07/30/08 08/13/[address] [place] [phone] documented as of this encounter
--- OUTSIDE RECORDS SUMMARY | 2021-10-28 15:13 | XMS_ITS | Encounter Summary ---
:1990 Author Organization [facility] Address [address] [place] [address] Care Team Providers Name Role Phone Carmela Sanchez MD Primary Care Provider Encounter Details Date Type Department Care Team Description 12/06/2009 Documentation Visit [facility] - J, PT Main [place] [address] [place] [phone] Social History Tobacco Use Types Packs/Day [...] encounter Progress Notes Braulio Barksdale, PT - 12/06/2009 0942 EDT [facility] ([facility]) [address] [facility] [address] Physical Therapy Contact Note The patient failed to show for today's scheduled appointment. BRAULIO BARKSDALE, PT 12/06/2009 9:42 documented in this encounter Plan of Treatment Not on filedocumented as of this encounter Visit Diagnoses Not on filedocumented in this encounter Care Teams Information Security Consultant Relationship Specialty Start Date End Date Carmela Sanchez MD PCP - General 07/30/08 08/13/[address] [place] [phone] documented as of this encounter
--- OUTSIDE RECORDS SUMMARY | 2021-10-28 15:13 | XMS_ITS | Encounter Summary ---
:1990 Author Organization [facility] Address [address] [place] [address] Care Team Providers Name Role Phone Carmela Sanchez MD Primary Care Provider Encounter Details Date Type Department Care Team Description 03/24/2009 Abstract [facility] Family Carmela Sanchez MD [address] [phone] [place] [id number] [phone] Social History Tobacco Use Types Packs/Day Years [...] Sig Dispensed Refills Start Date End Date NAPROXEN ORAL Take by mouth. 0 010 ibuprofen (MOTRIN) 800 mg Take 800 mg by mouth 0 05/20/2009 tablet as needed for Pain. added in this encounter Care Teams Dedicated Local Truck Driver Relationship Specialty Start Date End Date Carmela Sanchez MD PCP - General 07/30/08 08/13/11 [address] [place] [phone] documented as of this encounter
--- OUTSIDE RECORDS SUMMARY | 2021-10-28 15:13 | XMS_ITS | Encounter Summary ---
:1990 Author Organization [facility] Address [address] [place] [address] Care Team Providers Name Role Phone Carmela Sanchez MD Primary Care Provider Encounter Details Date Type Department Care Team Description 07/22/2009 Results Only *[facility] Felix, Gastroenterology - [facility] [place] [address] [facility] [address] [facility] [address] [place] [address] [place], [place] [phone] (Wo rk) Social History Tobacco Use Types [...] Name Priority Date/Time Associated Diagnosis Comme nts FL UGI SMALL BOWEL 07/22/2009 10:22 Resul ts for this AIR CONTRAST EDT procedure are i n the results section. documented in this encounter Results FL UGI SMALL BOWEL AIR CONTRAST (07/22/2009 10:22 EDT) Anatomical Region Laterality Modality Other Specimen Narrative [facility] - 07/22/2009 13:59 EDT FL UGI SMALL BOWEL AIR CONTRAST ??Jul 10:22:00 AM Clinical History/Comments: Abd pain, pamella rrhea, night sweats.. . . .Upper GI and small bowel follow-through Substation Manager KUB was obtained. Single and double-contrast views of the thoracic esophagus, stomach, duodenal bulb and sweep were obtained. A small bowel follow-through was also obtained. Substation Manager KUB is non specific. Study shows a normally distensible thora cic esophagus within normal appearing mucosa. Gastroesophageal reflu x was noted with patient motion The stomach is normally distensible than normal appearing mucosa. The duodenal bulb and sweep are within n ormal limits. The small bowel is normal in position, c aliber and fold pattern. Multiple spots, including the terminal i leum are within normal limits. Impression: Gastroesophageal reflux Procedure Note 07/22/2009 FL UGI SMALL BOWEL AIR CONTRAST Jul 22, 2009 10:22:00 AM Clinical History/Comments: Abd pain, pamella rrhea, night sweats.. . . .Upper GI and small bowel follow-through Substation Manager KUB was obtained. Single and double-contrast views of the thoracic esophagus, stomach, duodenal bulb and sweep were obtained. A small bowel follow-through was also obtained. Substation Manager KUB is non specific. Study shows a normally distensible thora cic esophagus within normal appearing mucosa. Gastroesophageal reflu x was noted with patient motion The stomach is normally distensible than normal appearing mucosa. The duodenal bulb and sweep are within n ormal limits. The small bowel is normal in position, c aliber and fold pattern. Multiple spots, including the terminal i leum are within normal limits. Impression: Gastroesophageal reflux Performing Organization Address City/State/[facility] Code Phon e Number [facility] documented in this encounter Visit Diagnoses Not on filedocumented in this encounter Care Teams Talent Coordinator Relationship Specialty Start Date End Date Carmela Sanchez MD PCP - General 07/30/08 08/13/[address] [place] [phone] documented as of this encounter
--- OUTSIDE RECORDS SUMMARY | 2021-10-28 15:13 | XMS_ITS | Encounter Summary ---
:1990 Author Organization [facility] Address [address] [place] [address] Care Team Providers Name Role Phone Carmela Sanchez MD Primary Care Provider Reason for Visit Reason Comments Shoulder Pain left side. slept on it funny . ROM is intact but it hurts Encounter Details Date Type Department Care Team Description 05/20/2009 Office Visit [facility] Thor Pittman, [facility] Family Medicine - MD (Primary Dx) [address] [phone] Social History Tobacco Use Types Packs/Day Years [...] Sign Reading Time Taken Comments Blood Pressure 105/64 05/20/2009 1119 EST Pulse 74 05/20/2009 1119 EST reg Temperature - - Respiratory Rate - - Oxygen Saturation - - Inhaled Oxygen Concentration - - Weight 79.8 kg (176 lb) 05/20/2009 1119 EST Height - - Body Mass Index - - documented in this encounter Ordered Prescriptions Prescription Sig Dispensed Refills Start Date End Date cyclobenzaprine (FLEXERIL) Take 1 Tab by 6 Tab 0 200908/17/2009 5 mg tabletIndications: mouth 2 times Left shoulder pain daily as needed for Muscle Spasms. ibuprofen (MOTRIN) 800 mg Take 1 Tab by 21 Tab 0 010 08/19/2009 tabletIndications: Left mouth as needed shoulder pain for Pain. documented in this encounter Progress Notes Thor Pittman MD - 05/20/2009 1142 EST Subjective: Patient ID: Renetta Bradley is an 19 y.o. female. Chief Complaint: Shoulder Pain The history is provided by the patient. The incident occurred yesterday. Injury Mechanism: dog slepton it and has been using it at work. The left shoulder is affected. The pain is medium. The pain hasbeen fluctuating since onset. Pertinent negatives include no numbness. Worse with motion, but no limitations After playing with dog and letting him sleep on her arm that night. Now much improved today, but feels it is acting up at work. Patient unable to localize pain specifically, but somewhere around scapula on left side Past Medical History Diagnosis Date ??? Migraine ??? Acid reflux ??? 2007 ??? Asthma ??? Varicella infection, resolved noted 1994 ??? Depressive disorder noted 08/11/2008 ??? Anxiety states noted 11/03/2008 History reviewed. No pertinent family history. Current outpatient prescriptions Medication Sig Dispense Refill ??? dicyclomine (BENTYL) 20 mg tablet Take 20 mg by mouth daily. ??? ibuprofen (MOTRIN) 800 mg tablet Take 800 mg by mouth as needed for Pain. ??? NAPROXEN ORAL Take by mouth. ??? albuterol (VENTOLIN HFA) 90 mcg/Actuation inhaler [...] ??? Drug Use: No ??? Sexually Active: Other Topics Concern ??? Not on file Social History Narrative ??? No narrative on file Review of Systems Constitutional: Negative for fever and chills. Respiratory: Negative for shortness of breath. Cardiovascular: Negative for chest pain. Gastrointestinal: Negative for nausea, vomiting and abdominal pain. Genitourinary: Negative for dysuria. Musculoskeletal: Positive for joint pain. Neurological: Negative for numbness. Objective: Physical Exam Nursing note and vitals reviewed. Constitutional: She appears well-developed and well-nourished. No distress. HENT: Head: Atraumatic. Eyes: No scleral icterus. Neck: Neck supple. Pulmonary/Chest: Effort normal. Musculoskeletal: Normal range of motion. Left shoulder: She exhibits normal range of motion, no tenderness, no bony tenderness, no swelling,no effusion, no pain and no spasm. Assessment: Left shoulder pain Plan: Normal shoulder exam, no limitation. Most likely muscular strain/spasm rx for ibuprofen 800mg tid and flexeril 5 mg 6 tab No refills F/u if no improvement documented in this encounter Plan of Treatment Not on filedocumented as of this encounter Visit Diagnoses Diagnosis Left shoulder pain - Primary Pain in joint, shoulder region documented in this encounter Discontinued Medications Medication Sig Discontinue Reason Start Date End Date ibuprofen (MOTRIN) 800 Take 800 mg by mouth Reorder 05/20/2009 mg tablet as needed for Pain. documented as of this encounter Historical Medications This list may reflect changes made after this encounter. Medication Sig Dispensed Refills Start Date End Date dicyclomine (BENTYL) 20 mg Take 20 mg by mouth 0 11/26/2009 06/05/2010 tablet as needed. added in this encounter Care Teams Louver Door Assembler Relationship Specialty Start Date End Date Carmela Sanchez MD PCP - General 07/30/08 08/13/[address] [place] [phone] documented as of this encounter
--- OUTSIDE RECORDS SUMMARY | 2021-10-28 15:13 | XMS_ITS | Encounter Summary ---
:1990 Author Organization [facility] Address [address] [place] [address] Care Team Providers Name Role Phone Carmela Sanchez MD Primary Care Provider Encounter Details Date Type Department Care Team Description 12/07/[address] [facility] - Maxwell Willson, Christian MD [address] [facility] [address] [place] [address] [place], [place] [phone] (Wo rk) Social History Tobacco Use Types [...] or Self Care documented in this encounter Plan of Treatment Not on filedocumented as of this encounter Visit Diagnoses Not on filedocumented in this encounter Care Teams Electronics Parts Sales Representative Relationship Specialty Start Date End Date Carmela Sanchez MD PCP - General 07/30/08 08/13/[address] [place] [phone] documented as of this encounter
--- OUTSIDE RECORDS SUMMARY | 2021-10-28 15:13 | XMS_ITS | Encounter Summary ---
:1990 Author Organization [facility] Address [address] [place] [address] Care Team Providers Name Role Phone Carmela Sanchez MD Primary Care Provider Encounter Details Date Type Department Care Team Description 09/27/2009 Documentation Visit [facility] Ron Fuchs, [facility] Therapy - PT Medical Office Build [address] [place] [address] [place], [place] [phone] Social History Tobacco Use Types Packs/Day [...] documented as of this encounter Progress Notes Ron Fuchs - 09/27/2009 9917 EDT REHABILITATION THERAPIES MEDICAL OFFICE BUILDING ([facility]) [address] [facility] [address] Phone: [phone] Fax: [phone] Physical Therapy Contact Note The patient failed to show for today's scheduled appointment. RON FUCHS PT 09/27/2009 4:27 PM documented in this encounter Plan of Treatment Not on filedocumented as of this encounter Visit Diagnoses Not on filedocumented in this encounter Care Teams Bead Stringer Relationship Specialty Start Date End Date Carmela Sanchez MD PCP - General 07/30/08 08/13/[address] [place] [phone] documented as of this encounter
--- OUTSIDE RECORDS SUMMARY | 2021-10-28 15:13 | XMS_ITS | Encounter Summary ---
:[address] [facility] Address [address] [place] [address] Care Team Providers Name Role Phone Carmela Sanchez MD Primary Care Provider Encounter Details Date Type Department Care Team Description 03/24/2010 Orders Only [facility] Kel Rivera Pel vic inflammatory Women's Services - disease (Primary Dx) Main [address] [place], [place] [address] [place] [address] [phone] Social History Tobacco Use Types Packs/Day Years [...] documented as of this encounter Progress Notes Kel Rivera MD - 03/24/2010 0957 EST Patient was treated for asymptomatic chlamydia in late Feb, 2010. Went to ER on 03/20/10 with complaint of pain and discharge. Was thought to have PID. Was started on flagyl and doxy. Did not garbage pick up man scrip until 03/23/10. Received ceftriaxone in ED. Now having continuous vomiting since starting on oral ABX. P., Stop abx now. If pain persists go to lab and have blood work drawn (I have placed the order. Kel Rivera MD documented in this encounter Plan of Treatment Not on filedocumented as of this encounter Results SED. RATE:WESTERGREN (03/25/2010 12:45 EST) Pathologist Sig [facility] Sed. Rate Westergren 5 0 - 20 mm/hr [facility] Specimen Blood specimen (specimen) Performing Organization Address City/[facility] Phon e Number [facility] [address] [place] [address] SERVICES [facility] [address] [place] [address] C-REACTIVE PROTEIN (03/25/2010 12:45 EST) Pathologist Sig [facility] C-Reactive Protein <0.7 <1.0 mg/dl [facility] Specimen Blood specimen (specimen) Performing Organization Address City/[facility]/ZIP [facility] Phon e Number [facility] [address] [place] [phone] SERVICES [facility] [address] [place] [address] (ABNORMAL) HEMAGRAM AND DIFFERENTIAL (03/25/2010 12:45 EST) [...] Organization Address City/State/ZIP Code Phon e Number [facility] [address] [place] [address] SERVICES [facility] [address] [place] [address] documented in this encounter Visit Diagnoses Diagnosis Pelvic inflammatory disease - Primary Unspecified inflammatory disease of fema le pelvic organs and tissues documented in this encounter Care Teams Case Management Social Worker Relationship Specialty Start Date End Date Carmela Sanchez MD PCP - General 07/30/08 08/13/[address] [place] [phone] documented as of this encounter
--- OUTSIDE RECORDS SUMMARY | 2021-10-28 15:13 | XMS_ITS | Encounter Summary ---
:1990 Author Organization [facility] Address [address] [place] [address] Care Team Providers Name Role Phone Carmela Sanchez MD Primary Care Provider Reason for Referral Consult (Routine) - Closed Specialty Diagnoses / Procedures Referred By Contact Refer red To Contact Psychiatry Diagnoses Depression Carmela Sanchez MD [address] [place] [phone] Referral ID Status Reason Start Date Expiration Date Visits V isits Requested Authorized [id number] Closed Specialty 11/01/2009 1 1 Services Required Question Answer Reason for Request: pt c/o being 'disabled' by h er depression and anxiety - r/o bipolar - assess for service dog (pt request) Reason for Visit Reason Comments Paperwork request requesting signed letter to have her dog listed as a service dog. Encounter Details Date Type Department Care Team Description 11/01/2009 Office Visit [facility] Carmela Sanchez Depr ession (Primary Dx); Family Medicine - Anxiety; [address] GERD (gastroesophageal reflux disease) [address] [place] [phone] Social History Tobacco Use Types Packs/Day Years Used Date Current Every Day Smoker Cigarettes 0.25 7 Alcohol Use Standard Drinks/Week Comments No [...] Reading Time Taken Comments Blood Pressure 112/60 11/01/2009 1302 EDT Pulse 80 11/01/2009 1302 EDT Temperature - - Respiratory Rate 12 11/01/2009 1302 EDT Oxygen Saturation - - Inhaled Oxygen Concentration - - Weight 78.7 kg (173 lb 9.6 oz) 11/01/2009 1302 EDT Height 165.1 cm (5' 5) 11/01/2009 1302 EDT Body Mass Index 28.89 11/01/2009 1302 EDT documented in this encounter Ordered Prescriptions Prescription Sig Dispensed Refills Start Date End Date omeprazole (PRILOSEC) 20 Take 1 Cap by mouth 30 Cap 5 09/12/2010 mg capsuleIndications: daily. GERD (gastroesophageal reflux disease) fluoxetine (PROZAC) 20 mg Take 1 Cap by mouth 30 Cap 5 0 11/01/2009 02/24/2010 capsuleIndications: daily. Take 20mg and Depression 10mg cap together fluoxetine (PROZAC) 10 mg Take 1 Cap by mouth 30 Cap 5 0 11/01/2009 04/13/2010 capsuleIndications: daily. Take 20mg and Depression 10mg cap together documented in this encounter Progress Notes Carmela Sanchez MD - 11/01/2009 1321 EDT Subjective: Patient ID: Renetta Bradley is an 19 y.o. female. Chief Complaint Patient presents with ??? Paperwork request requesting signed letter to have her dog listed as a service dog. HPI Comments: Here to request paperwork to make her dog a service dog. Started Prozac a year ago for depression and anxiety - it helps. Now has panic attacks every couple of months down from a couple times a week. Mood is better but still sometimes low. Has been suicidal in past - last time was last week. No current plan - has thought of overdosing in past. Has never made an attempt. Used to cut - last 4 years ago. Short fuse - very labile moods. Very fidgety. Sleeps okay - 3-4 am until noon. No EMAs. Does have FHx depression. No bipolar. No O-C Sx currently - does like thinks organized and in certain places. No highs. No AH/VH. No EtOH/drugs. Has noticed that her dog can be very reassuring especially when feeling panicky. Wants to be able tokeep him in a new apt if she moves - dog is a pit bull. Has never seen Psychiatry or been in counseling. Looking for a job - has food stamps. Occasionally does chores for her Mom. Lives with BF's family. Patient Active Problem List Diagnoses Code ??? [...] ??? Irritable bowel syndrome Current outpatient prescriptions prior to encounter Medication Sig Dispense Refill ??? fluoxetine (PROZAC) [...] Use Topics ??? Tobacco Use: Yes -- 0.2 packs/day for 7 years ??? Alcohol Use: No ROS - See HPI Objective: BP 112/60 Pulse 80 Resp 12 Ht 1.651 m (5' 5) Wt 78.744 kg (173 lb 9.6 oz) LMP Implant Physical Exam Constitutional: She appears well-developed and well-nourished. No distress. Psychiatric: Her speech is normal and behavior is normal. Thought content normal. Her mood appears not anxious. Her affect is not blunt, not labile and not inappropriate. She exhibits a depressed mood. Assessment: See below Plan: Renetta was seen today for paperwork request. Diagnoses and associated orders for this visit: - Depression - in partial remission. Unclear how disabled she really is. Not sure she needs a service dog. Might consider note requesting housing that allows dogs. Pt declines interim dose adjustment on Prozac. - Anxiety - as above. - Refill Fluoxetine 10 mg cap -- Take 1 Cap by mouth daily. Take 20mg and 10mg cap together - Fluoxetine 20 mg cap -- Take 1 Cap by mouth daily. Take 20mg and 10mg cap together - Ambulatory consult psychiatry for eval and opinion. - Gerd (gastroesophageal reflux disease) - Omeprazole 20 mg cap, delayed release -- Take 1 Cap by mouth daily. I spent a total of 25 minutes counseling in face to face time with this patient and 25 min was spentin counseling and coordination of care as described in the progress note. Patient Education Topic: as above Method: Verbal Taught to: Patient + BF Barriers: None Outcomes: Verbalized understanding Signature: AJ documented in this encounter Plan of Treatment Scheduled Referrals Name Type Priority Associated Order Schedule Diagnoses AMB CONSULT Outpatient Referral Routine Depression Ordered: PSYCHIATRY 11/01/2009 documented as of this encounter Visit Diagnoses Diagnosis Depression - Primary Depressive disorder, not elsewhere class ified Anxiety Anxiety state, unspecified GERD (gastroesophageal reflux disease) Esophageal reflux documented in this encounter Discontinued Medications Medication Sig Discontinue Reason Start Date End Date fluoxetine (PROZAC) 10 Take 1 Cap by mouth Reorder 08/17/2009 11/01/2009 mg capsuleIndications: daily. Take 20mg and Anxiety 10mg cap together fluoxetine (PROZAC) 20 Take 1 Cap by mouth Reorder 08/17/2009 11/01/2009 mg capsuleIndications: daily. Take 20mg and Anxiety 10mg cap together omeprazole (PRILOSEC) Take 20 mg by mouth Reorder 11/01/2009 10 mg capsule daily. documented as of this encounter Care Teams Account Services Representative Relationship Specialty Start Date End Date Carmela Sanchez MD PCP - General 07/30/08 08/13/[address] [place] [phone] documented as of this encounter
--- OUTSIDE RECORDS SUMMARY | 2021-10-28 15:13 | XMS_ITS | Encounter Summary ---
:1990 Author Organization [facility] Address [address] [place] [address] Care Team Providers Name Role Phone Carmela Sanchez MD Primary Care Provider Encounter Details Date Type Department Care Team Description 08/27/2009 Abstract Used for ABSTRACTING Data Unknown, Doctor Knee pain, right [phone] Social History Tobacco Use Types Packs/Day Years [...] as of this encounter Visit Diagnoses Diagnosis Knee pain, right Pain in joint, lower leg documented in this encounter Care Teams Associate Director Career Services Relationship Specialty Start Date End Date Carmela Sanchez MD PCP - General 07/30/08 08/13/[address] [place] [phone] documented as of this encounter
--- OUTSIDE RECORDS SUMMARY | 2021-10-28 15:13 | XMS_ITS | Encounter Summary ---
:1990 Author Organization [facility] Address [address] [place] [address] Care Team Providers Name Role Phone Carmela Sanchez MD Primary Care Provider Reason for Referral Consult, Test and Treat (Routine) - Closed Specialty Diagnoses / Procedures Referred By Contact Refer red To Contact Rehab Therapies Diagnoses Back pain Ester Mohamud MD [address] [place] [phone] Referral ID Status Reason Start Date Expiration Date Visits V isits Requested Authorized [id number] Closed Specialty 08/19/2009 1 1 Services Required Question Answer Reason for Request: Chronic lumbar pain which is limiting her activities, present since injury from ch eerleading fall 3 yrs ago. Date of Onset or Injury: fall 2006 Reason for Visit Reason Comments Back Pain chronic back pain-injured ba about 3 yrs ago while cheerleading Encounter Details Date Type Department Care Team Description 08/19/[address] [facility] Ester Mohamud jorge n (Primary Dx); Family Medicine - MD Megan Left shoulder pain [address] [phone] Social History Tobacco Use Types [...] Reading Time Taken Comments Blood Pressure 105/64 08/19/2009 0958 EDT Pulse 76 08/19/2009 0958 EDT reg Temperature - - Respiratory Rate - - Oxygen Saturation - - Inhaled Oxygen Concentration - - Weight 79.8 kg (176 lb) 08/19/2009 0958 EDT Height - - Body Mass Index - - documented in this encounter Ordered Prescriptions Prescription Sig Dispensed Refills Start Date End Date ibuprofen (MOTRIN) 800 mg Take 1 Tab by mouth 100 Tab 3 0 08/19/2009 07/22/2010 tabletIndications: Back as needed for Pain. pain documented in this encounter Progress Notes Ester Mohamud MD - 08/19/2009 1019 EDT S: She injured her back cheerleading about 3 years ago. She gets a lot of pain in her lower back. Pain increases with prolonged sitting or with being active or with sleep position. At the time of the injury she fell while catching another cheerleader. 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 She tried doing lacrosse but couldn't do it because of the pain. She takes 800mg ibuprofen as needed with some relief. She has never done PT. She would like to be referred for this. No loss of control of bowels or bladder. Walking will cause back pain, so she is less active and is gaining weight. She has been smoking 1/2 ppd for 7 years. She feels under too much stress to quit now, but wants to quit with her boyfriend before he goes to basic training next spring. O: KJ's and AJ's 2+ and symmetrical. Tender over upper lumbar region. No thoracic tenderness and no lower lumbar tenderness. No SI joint tenderness. No scoliosis noted on exam. Straight leg raising is normal and seated knee extension is normal. A: Chronic low back pain, likely musculoskeletal in origin. P: Continue ibuprofen prn; this was refilled. Trial of heat and or ice. Refer to PT. Patient education was verbal, direct to the patient, with no barriers identified. She verbalized herunderstanding and can implement the plans independently. documented in this encounter Plan of Treatment Scheduled Referrals Name Type Priority Associated Diagnoses Order S chedule AMB CONSULT Outpatient Referral Routine Back Pain Ordered: PHYSICAL THERAPY 08/19/2009 documented as of this encounter Visit Diagnoses Diagnosis Back pain - Primary Backache, unspecified Left shoulder pain Pain in joint, shoulder region documented in this encounter Discontinued Medications Medication Sig Discontinue Reason Start Date End Date ibuprofen (MOTRIN) 800 Take 1 Tab by mouth Reorder 05/20/2009 08/19/2009 mg tabletIndications: as needed for Pain. Left shoulder pain documented as of this encounter Care Teams Director Funds Development Relationship Specialty Start Date End Date Carmela Sanchez MD PCP - General 07/30/08 08/13/[address] [place] [phone] documented as of this encounter
--- OUTSIDE RECORDS SUMMARY | 2021-10-28 15:13 | XMS_ITS | Encounter Summary ---
:1990 Author Organization [facility] Address [address] [place] [address] Care Team Providers Name Role Phone Carmela Sanchez MD Primary Care Provider Encounter Details Date Type Department Care Team Description 10/14/2009 Documentation Visit [facility] Ron Fuchs Rehabilitation Therapy - PT Medical Office Build [address] [place] [address] [place], [place] [phone] Social History Tobacco Use Types Packs/Day [...] this encounter Progress Notes Ron Fuchs - 10/14/2009 0923 EDT REHABILITATION THERAPIES MEDICAL OFFICE BUILDING ([facility]) [address] [facility] [address] Phone: [phone] Fax: [phone] Physical Therapy Discontinue/Discharge Note Date of Service: 10/14/2009 Reason for Referral: LBP ICD9: 724.2 Date of Onset: Approx. 12/08/06 Referring Provider: Ester Mohamud MD Precautions: None S: Pt did not show for today's visit. She also did not show for the last visit. Therefore, she will be discharged. As of her last visit, she reported a decrease in back pain. She joined a gym and reported she will begin going independently. Pain: Pain reduction is not a goal of treatment. O: The patient has been seen in physical therapy since 09/22/09 for 4 visits. In this reporting period 09/22/09 to 10/14/09, patient has been seen by a physical therapist for back pain. All objective data is taken from her last visit. Relevant objective findings: Arousal, Attention, Cognition: Alert and oriented x 3 Cardiopulmonary: Stable vital signs with interventions Integumentary/Anthropometric Characteristics: Palpation/Observation: Not assessed Posture: No obvious assymmetry Range of Motion and Joint Integrity: Range of Motion: Lower Quarter: Lumbar spine ROM was full and pain free Muscle Length: Not Evaluated Tests of Provocation: Not Evaluated Muscle Performance: Strength: Lower Quarter: Continued limitation in core strength, grossly equal to that on the initial assessment, 3+5 upper abdominals ans 3/5 back extensors. Sensation, Reflexes, and Nerve Integrity: Light Touch Sensation: Upper Quarter: Not evaluated Lower Quarter: Not evaluated Neuromotor Function/Development: Not evaluated. WNL on the initial assessment Balance, Locomotion, and Gait: Not evaluated. WNL on the initial assessment Self-Care, Home Management, Work, and Leisure: Outcome Measures: Not evaluated A: Pt did not show for her last 2 visits, and therefore will be discharged. However, as of her last visit, she demonstrated full pain free lumbar spine ROM with continued limitations in strength. She will likely achieve all of her goals if she continues her gym program independently. Short Term Goals: 4 weeks 1. Pt will be independent with an initial HEP. -MET 2. Pt will display an improvement in lumbar spine ROM by 10 degrees of flexion to facilitate a greater ease in bending forward and picking up objects. -Not measured as of last visit 3. Pt will display an improvement in lumbar spine strength to 4/5 to facilitate a greater ease in lifting objects and transitioning from supine to sitting. -Not met 4. 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 -Not measured as of last visit 5. Pt will report an improvement in ability to stand for 60 to facilitate greater ease standing Whenshe returns to work. -Nnot measured as of last visit Residential Goals: 8 weeks 1. Pt will be independent with an advanced HEP. -MET 2. Pt will display an improvement in lumbar spine ROM by 20 degrees of flexion to facilitate a greater ease in bending forward. -Not measured as of last visit 3. Pt will display an improvement in lumbar spine strength to 5/5 to facilitate a greater ease in lifting objects and transitioning from supine to sitting. -Not met 4. Pt will report an improvement in ability to sit for 2 hours to facilitate a greater ease in sitting when she returns to work.-Not measured as of last visit 5. Pt will report an improvement in ability to stand for 2 hours to facilitate greater ease in standing when she returns to work.-Not measured as of last visit. P: Discontinue Physical Therapy. RON FUCHS, PT 10/14/2009 9:13 AM documented in this encounter Plan of Treatment Not on filedocumented as of this encounter Visit Diagnoses Not on filedocumented in this encounter Care Teams Acid Tank Cleaner Relationship Specialty Start Date End Date Carmela Sanchez MD PCP - General 07/30/08 08/13/[address] [place] [phone] documented as of this encounter
--- OUTSIDE RECORDS SUMMARY | 2021-10-28 15:13 | XMS_ITS | Encounter Summary ---
:1990 Author Organization [facility] Address [address] [place] [id number] Care Team Providers Name Role Phone Carmela Sanchez MD Primary Care Provider Reason for Visit Reason Onset Date Comments Head Lice 01/31/2010 Encounter Details Date Type Department Care Team Description 01/31/2010 Telephone [facility] Carmela Sharma MD Head Lice [address] [address] [phone] (Wo rk) Social History Tobacco Use Types [...] Telephone Encounter - Zuleyka Hansen RN - 01/31/2010 1714 EDT Phone call to Renetta--has lice She did a treatment already (her mom is a nurse)--the washed all the bedding, and threw out the pulido. Her mom worked (2) hrs picking out the nits. Today when she checked she still saw live lice and nits. I recommenced to wash the bedding again, put the stuffed animals in the dryer (high heat)--vacume matrices and floors. (no one else in the family has it, they were away for awhile)--she was staying where the children had lice (but thought they were clear) I suggested tonight she use mayonnaise on whole head and hair, wrap in saran wrap overnight. Wash hair next AM and have her mom pick out the nits again, and keep checking. She will call me back if there are any other questions or concerns. elephone Encounter - Hillary Stephens - 01/31/2010 1552 EDT Patient's mom checked her head, and she has lice. Please call her. documented in this encounter Plan of Treatment Not on filedocumented as of this encounter Visit Diagnoses Not on filedocumented in this encounter Care Teams Return Agent Relationship Specialty Start Date End Date Carmela Sanchez MD PCP - General 07/30/08 08/13/[address] [place] [address] [phone] documented as of this encounter
--- OUTSIDE RECORDS SUMMARY | 2021-10-28 15:13 | XMS_ITS | Encounter Summary ---
:1990 Author Organization [facility] Address [address] [place] [address] Care Team Providers Name Role Phone Carmela Sanchez MD Primary Care Provider Encounter Details Date Type Department Care Team Description 03/21/2010 Documentation Visit [facility] Daniel Barksdale Rehabilitation Therapy - J, PT [address] [place] [address] [place] [address] Social History Tobacco Use Types [...] encounter Progress Notes Braulio Barksdale, PT - 03/21/2010 1007 EST REHABILITATION THERAPIES [place] [address]([facility] [place]),[address] [facility] [address] Physical Therapy Discharge Note Date of Service: 03/21/2010 Reason for Referral: Diagnosis: Low Back Pain ICD 9: 723.1 Date of Onset: 11/26/09 Referring Provider: Tricia Mosley Precautions: None S: Patient was last seen on 11-29-09, the date of the initial evaluation O: The patient has been seen for physical therapy since the Date of Initial Eval: 11/29/09 for a total of 1 visit(s). Interventions included therapeutic exercises, HEP, and patient education. Please refer to chart for details and last progress note on 11-29-09 for relevant objective findings as the patient has failed to return to therapy. Team Communication: None A: Unable to assess. P: Discontinue Physical Therapy. The patient is invited to contact us at any time, should any problems arise, or should her plans for rehabilitation change. BRAULIO BARKSDALE, PT 03/21/2010 10:07 documented in this encounter Plan of Treatment Not on filedocumented as of this encounter Visit Diagnoses Not on filedocumented in this encounter Care Teams Uat Tester Relationship Specialty Start Date End Date Carmela Sanchez MD PCP - General 07/30/08 08/13/[address] [place] [phone] documented as of this encounter
--- OUTSIDE RECORDS SUMMARY | 2021-10-28 15:13 | XMS_ITS | Encounter Summary ---
:1990 Author Organization [facility] Address [address] [place] [address] Care Team Providers Name Role Phone Carmela Sanchez MD Primary Care Provider Reason for Visit Reason Comments Back Pain Patient injured her back yes terday at work. Complains of pain from her neck to her low back; thinks it i s from overdoing at work, from lifting too much Neck Pain radiates down between should er blades Encounter Details Date Type Department Care Team Description 11/25/2009 Hospital Encounter [facility] Nohemy Varela MD [address] [place] [phone] Lumbar strain; Urgent Care - Heaven Mace, Provider, Neck sprain and strain [address] [phone] Social History Tobacco Use Types Packs/Day Years [...] Sign Reading Time Taken Comments Blood Pressure 96/52 11/25/2009 1418 EDT Pulse 76 11/25/2009 1418 EDT Temperature 37.2 ??C (99 ??F) 11/25/2009 1418 EDT Respiratory Rate 18 11/25/2009 1418 EDT Oxygen Saturation - - Inhaled Oxygen Concentration - - Weight - - Height - - Body Mass Index - - documented in this encounter Discharge Instructions InstructionsJosé Miguel Varela - 11/25/2009 Images from the original note were not included. [facility] Patient Instructions Neck Strain: After Your Visit Your Care Instructions You have strained the muscles and ligaments in your neck. A sudden, awkward movement can strain the neck. This often occurs with falls or car accidents or during certain sports. Everyday activities like working on a computer or sleeping can also cause neck strain if they force you to hold your neck inan awkward position for a long time. It is common for neck pain to get worse for a day or two after an injury, but it should start to feel better after that. You may have more pain and stiffness for several days before it gets better. This is expected. It may take a few weeks or longer for it to heal completely. Good home treatment can help you get better faster and avoid future neck problems. Follow-up care is a borden part of your treatment and safety. Be sure to make and go to all appointments, and call your doctor if you are having problems. It???s also a good idea to know your test resultsand keep a list of the medicines you take. How can you care for yourself at home? ?? If you were given a neck brace (cervical collar) to limit neck motion, wear it as instructed for as many days as your doctor tells you to. Do not wear it longer than you were told to. Wearing a brace for too long can make neck stiffness worse and weaken the neck muscles. ?? Put ice or a cold pack on your neck for 10 to 20 minutes at a time. Try to do this every 1 to 2 hours for the next 3 days (when you are awake) or until the swelling goes down. Put a thin cloth between the ice and your skin. ?? Take pain medicines exactly as directed. ?? If the doctor gave you a prescription medicine for pain, take it as prescribed. ?? If you are not taking a prescription pain medicine, ask your doctor if you can take an eesi-abv-cuujjxy medicine. ?? Do not take two or more pain medicines at the same time unless the doctor told you to. Many pain medicines have acetaminophen, which is Tylenol. Too much acetaminophen (Tylenol) can be harmful. ?? Gently rub the area to relieve pain and help with blood flow. Do not massage the area if it hurtsto do so. ?? If your neck is swollen, avoid things that might make swelling worse, such as hot showers, hot tubs, hot packs, and drinks that contain alcohol. ?? After 2 or 3 days, if your swelling is gone, apply a heating pad set on low or a warm cloth to your neck. This helps keep your neck flexible. Some doctors suggest that you go back and forth between hot and cold. Put a thin cloth between the heating pad and your skin. ?? Do not do anything that makes the pain worse. Take it easy for a couple of days. You can do your usual activities if they do not hurt your neck or put it at risk for more stress or injury. ?? Try sleeping on a special neck pillow. Place it under your neck, not under your head. Placing a tightly rolled-up towel under your neck while you sleep will also work. If you use a neck pillow or rolled towel, do not use your regular pillow at the same time. ?? To prevent future neck pain, do exercises to stretch and strengthen your neck and back. Learn howto use good posture, safe lifting techniques, and proper body mechanics. When should you call for help? Call 911 anytime you think you may need emergency care. For example, call if: ?? You lose bladder or bowel control. ?? You have weakness in your arms or legs. Call your doctor now or seek immediate medical care if: ?? You have new pain, numbness, or tingling in your arms, hands, or legs. Watch closely for changes in your health, and be sure to contact your doctor if: ?? Your neck pain gets worse. ?? Your neck pain is not better after 1 week. It may take longer for the pain to go away completely,but it should feel at least a little better. Where can you learn more? Go to www.[employer].net/fahc Enter M253 in the search box to learn more about Neck Strain: After Your Visit. ?? 2005 - 2008 [employer]. Care instructions adapted under license by [facility], [facility] . This care instruction is for use with your licensed healthcare professional. If youhave questions about a medical condition or this instruction, always ask your healthcare professional. [facility] disclaims any warranty or liability for your use of this information. [facility] Patient Instructions Neck Strain: After Your Visit Your Care Instructions You have strained the muscles and ligaments in your neck. A sudden, awkward movement can strain the neck. This often occurs with falls or car accidents or during certain sports. Everyday activities like working on a computer or sleeping can also cause neck strain if they force you to hold your neck inan awkward position for a long time. It is common for neck pain to get worse for a day or two after an injury, but it should start to feel better after that. You may have more pain and stiffness for several days before it gets better. This is expected. It may take a few weeks or longer for it to heal completely. Good home treatment can help you get better faster and avoid future neck problems. Follow-up care is a borden part of your treatment and safety. Be sure to make and go to all appointments, and call your doctor if you are having problems. It???s also a good idea to know your test resultsand keep a list of the medicines you take. How can you care for yourself at home? ?? If you were given a neck brace (cervical collar) to limit neck motion, wear it as instructed for as many days as your doctor tells you to. Do not wear it longer than you were told to. Wearing a brace for too long can make neck stiffness worse and weaken the neck muscles. ?? Put ice or a cold pack on your neck for 10 to 20 minutes at a time. Try to do this every 1 to 2 hours for the next 3 days (when you are awake) or until the swelling goes down. Put a thin cloth between the ice and your skin. ?? Take pain medicines exactly as directed. ?? If the doctor gave you a prescription medicine for pain, take it as prescribed. ?? If you are not taking a prescription pain medicine, ask your doctor if you can take an zsil-sag-iwfoevb medicine. ?? Do not take two or more pain medicines at the same time unless the doctor told you to. Many pain medicines have acetaminophen, which is Tylenol. Too much acetaminophen (Tylenol) can be harmful. ?? Gently rub the area to relieve pain and help with blood flow. Do not massage the area if it hurtsto do so. ?? If your neck is swollen, avoid things that might make swelling worse, such as hot showers, hot tubs, hot packs, and drinks that contain alcohol. ?? After 2 or 3 days, if your swelling is gone, apply a heating pad set on low or a warm cloth to your neck. This helps keep your neck flexible. Some doctors suggest that you go back and forth between hot and cold. Put a thin cloth between the heating pad and your skin. ?? Do not do anything that makes the pain worse. Take it easy for a couple of days. You can do your usual activities if they do not hurt your neck or put it at risk for more stress or injury. ?? Try sleeping on a special neck pillow. Place it under your neck, not under your head. Placing a tightly rolled-up towel under your neck while you sleep will also work. If you use a neck pillow or rolled towel, do not use your regular pillow at the same time. ?? To prevent future neck pain, do exercises to stretch and strengthen your neck and back. Learn howto use good posture, safe lifting techniques, and proper body mechanics. When should you call for help? Call 911 anytime you think you may need emergency care. For example, call if: ?? You lose bladder or bowel control. ?? You have weakness in your arms or legs. Call your doctor now or seek immediate medical care if: ?? You have new pain, numbness, or tingling in your arms, hands, or legs. Watch closely for changes in your health, and be sure to contact your doctor if: ?? Your neck pain gets worse. ?? Your neck pain is not better after 1 week. It may take longer for the pain to go away completely,but it should feel at least a little better. Where can you learn more? Go to www.[employer].net/fahc Enter M253 in the search box to learn more about Neck Strain: After Your Visit. ?? 2005 - 2008 [employer]. Care instructions adapted under license by [facility], [facility] . This care instruction is for use with your licensed healthcare professional. If youhave questions about a medical condition or this instruction, always ask your healthcare professional. [employer] disclaims any warranty or liability for your use of this information. AttachmentsThe following attachments cannot be sent through Care Everywhere.BACK PAIN: AFTER YOUR VISIT (GERMAN)documented in this encounter Medications at Time of [...] Sig Dispensed Refills Start Date End Date methocarbamol (ROBAXIN) Take by mouth. One 25 Tab 0 11/0701/22/2010 500 mg tablet to two tablets by mouth every 6-8 hours as needed for pain/spasm documented in this encounter Discharge Disposition Disposition Code Departure Means Destination Home or Self Care Car Home documented in this encounter ED Notes José Miguel Varela L - 11/25/2009 2236 EDT Images from the original note were not included. DOS: 11/25/2009 Chief Complaint Patient presents with ??? Back Pain Patient injured her back yesterday at work. Complains of pain from her neck to her low back; thinksit is from overdoing at work, from lifting too much ??? Neck Pain radiates down between shoulder blades The patient is a 19 y.o. female who presents today with Back Pain and Neck Pain The history is provided by the patient, a significant other and medical records. Back Pain This is a recurrent problem. The current episode started yesterday. The problem has not changed since onset. The pain is associated with lifting heavy objects. The pain is present in the lumbar spine (Also having neck pain.). The quality of the pain is described as aching. The pain does not radiate. The pain is moderate. The symptoms are aggravated by bending, twisting and certain positions. Pertinent negatives include no chest pain, no fever, no numbness, no headaches, no abdominal pain, no abdominal swelling, no bowel incontinence, no perianal numbness, no bladder incontinence, no dysuria, no legpain, no paresthesias, no paresis, no tingling and no weakness. Neck Pain This is a recurrent problem. The pain is associated with lifting a heavy object. There has been no fever. The pain is present in the generalized neck. The quality of the pain is described as aching. The pain does not radiate. The pain is moderate. The symptoms are aggravated by twisting. Pertinent negatives include no chest pain, no numbness, no headaches, no bowel incontinence, no bladder incontinence, no leg pain, no paresis, no tingling and no weakness. Review of Systems Constitutional: Negative for fever, chills and diaphoresis. HENT: Positive for neck pain and neck stiffness. Negative for sore throat, trouble swallowing and voice change. Eyes: Negative. Respiratory: Negative. Cardiovascular: Negative for chest pain. Gastrointestinal: Negative for abdominal pain. Genitourinary: Negative for bladder incontinence and dysuria. Musculoskeletal: Positive for back pain and gait problem. Negative for myalgias. Skin: Negative. Neurological: Negative for tingling, weakness, numbness and headaches. Hematological: Negative. Psychiatric/Behavioral: Negative. No current facility-administered medications on file. Current outpatient prescriptions Medication Sig Dispense Refill ??? methocarbamol (ROBAXIN) [...] Sulfa (Sulfonamide Antibiotics) ??? Bee Pollens Anaphylaxis Past Medical History Diagnosis Date ??? Migraine ??? Acid reflux ??? 2007 ??? Asthma ??? Varicella infection, resolved noted 1994 ??? Depressive disorder noted 08/11/2008 ??? Anxiety states noted 11/03/2008 ??? Irritable bowel syndrome History Substance Use Topics ??? Tobacco Use: Yes -- 0.5 packs/day for 7 years ??? Alcohol Use: No Family History Problem Relation Age of Onset ??? Depression Mother ??? Depression Maternal Grandfather severe BP 96/52 Pulse 76 Temp(Src) 99 ??F (37.2 ??C) (Temporal) Resp 18 Physical Exam Nursing note and vitals reviewed. Constitutional: She is oriented to person, place, and time. She appears well- developed and well-nourished. HENT: Head: Normocephalic and atraumatic. Eyes: Conjunctivae and extraocular motions are normal. Pupils are equal, round, and reactive to light. Neck: Normal range of motion. Neck supple. No thyromegaly present. Cardiovascular: Normal rate. Pulmonary/Chest: Effort normal. No stridor. Abdominal: Soft. Musculoskeletal: Cervical back: She exhibits decreased range of motion, tenderness and spasm. She exhibits no bony tenderness. Lumbar back: She exhibits decreased range of motion, tenderness and spasm. She exhibits no bony tenderness. Back: Lymphadenopathy: She has no cervical adenopathy. Neurological: She is alert and oriented to person, place, and time. She has normal strength. No sensory deficit. She exhibits normal muscle tone. Coordination normal. Skin: Skin is warm and dry. No rash noted. She is not diaphoretic. No erythema. No pallor. Psychiatric: She has a normal mood and affect. Her behavior is normal. Judgment and thought content normal. Consult orders: None PCP: Carmela Sanchez MD, MD No results found for this visit on 11/25/09. Radiology orders: None Procedures Course: Reviewed supportive care and medication use/precautions. F/U with PCP if not improving over next week or so, sooner if worsening. 1. Lumbar strain (847.2L) 2. Neck sprain and strain (847.0) No supervision required. [facility] 11/25/2009 22:36 ichel Herrera - 11/25/2009 1420 EDT Pt. Asked to put on gown. documented in this encounter Miscellaneous Notes Scanned Note-Null - Inpatient, MD Rosemarie - 11/25/2009 0000 EDT documented in this encounter Plan of Treatment Not on filedocumented as of this encounter Visit Diagnoses Diagnosis Lumbar strain Sprain of lumbar region Sprain of neck documented in this encounter Care Teams Yard Brakeman Relationship Specialty Start Date End Date Carmela Sanchez MD PCP - General 07/30/08 08/13/[address] [place] [phone] documented as of this encounter
--- OUTSIDE RECORDS SUMMARY | 2021-10-28 15:13 | XMS_ITS | Encounter Summary ---
:1990 Author Organization [facility] Address [address] [place] [address] Care Team Providers Name Role Phone Carmela Sanchez MD Primary Care Provider Reason for Visit Reason Comments Pelvic Pain right lower pelvic pain x3 d ays. continuous pain. nausea. pt having vaginal bleeding. Encounter Details Date Type Department Care Team Description 01/22/2010 Hospital Encounter [facility] Maria De Jesus [place] Abdominal pain; Ur[facility] - [facility] PA-C Abdominal pain, unspecified site [address] [place] [address] [phone] [place] [phone] [id number] Social History Tobacco Use Types Packs/Day Years Used Date Current Every Day Smoker Cigarettes 0.5 Alcohol Use Standard Drinks/Week Comments No [...] Sign Reading Time Taken Comments Blood Pressure 122/76 01/22/2010 1402 EDT Pulse 82 01/22/2010 1402 EDT Temperature 36.8 ??C (98.2 ??F) 01/22/2010 1402 EDT Respiratory Rate 18 01/22/2010 1402 EDT Oxygen Saturation - - Inhaled Oxygen Concentration - - Weight - - Height - - Body Mass Index - - documented in this encounter Discharge Instructions Maria De Jesus Fonseca PA - 01/22/2010 As we discussed it does not appear that your abdominal pain is due to any dangerous causes at this time. Prompt follow up will be necessary if your pain changes in quality, position or severity. You should return immediately to the clinic or go to the emergency room if you have abdominal pain, specfically if it is severe or local to one place, especially the right lower area. You should also return if you are unable to keep any fluids down, if you do not not urinate in any given 5-6 hour period, if you start to have dry or cracked lips or if he runs a high fever or there are any unexpected, changing or worsening symptoms. It is otherwise safe to follow- up with your Primary Care Provider in a few days. AttachmentsThe following attachments cannot be sent through Care Everywhere. ABDOMINAL PAIN IN ADULTS: AFTER YOUR VISIT ([place])documented in this encounter Medications at Time of [...] mg ImplIndications: route once. contraception Indications: CONTRACEPTION fluoxetine (PROZAC) 10 Take 1 Cap by [...] mg tabletIndications: needed for Pain. Back pain naproxen sodium Take 1 Tab by mouth 2 30 Tab 3 201 0 02/24/2010 (ANAPROX DS) 550 mg times daily with tablet meals. omeprazole (PRILOSEC) Take 1 Cap by mouth 30 Cap 5 11/0109/12/2010 20 mg daily. capsuleIndications: GERD (gastroesophageal reflux disease) ondansetron (ZOFRAN) 4 Take 1 Tab by mouth 15 Tab 0 01/0702/24/2010 mg tablet every 8 hours as needed for Nausea. documented as of this encounter Ordered Prescriptions Prescription Sig Dispensed Refills Start Date End Date naproxen sodium (ANAPROX Take 1 Tab by mouth 30 Tab 3 02/24/2010 DS) 550 mg tablet 2 times daily with meals. ondansetron (ZOFRAN) 4 mg Take 1 Tab by mouth 15 Tab 0 1 02/24/2010 tablet every 8 hours as needed for Nausea. documented in this encounter Discharge Disposition Disposition Code Departure Means Destination Home or Self Care Walk-out Home documented in this encounter ED Notes Maria De Jesus Nunes PA - 01/22/2010 1739 EDT DOS: 01/22/2010 Chief Complaint Patient presents with ??? Pelvic Pain right lower pelvic pain x3 days. continuous pain. nausea. pt having vaginal bleeding. The patient is a 20 y.o. female who presents today with Pelvic Pain HPI Comments: pt reports 3 days of intermittent rlq pain, vomited x 2 today. No diarrhea, no fever, no dysuria. (+) vaginal bleeding. Notes that she had not had a period in 1 year as she was taking continuous control. She had a period last month and has vaginal bleeding now. She notes this is heavier than the period she remembers. She had been sexually active with 1 partner for 2 years, found that partner was cheating, has now had a new partner x 1 month. No vaginal discharge or smell but does request std testing. No previous history of std. Last had intercourse last night- was pain free at that time- no dyspareunia. She does report having had similar pain previously and a full work up including, 'special x-rays of my intestines ultrasounds, an ultrasound of my gall bladder and then they figured out that it was irritable bowel syndrome' The history is provided by the patient. Pelvic Pain This is a new problem. Pain severity now: mild to moderate. Associated symptoms include pelvic pain.Pertinent negatives include no chest pain, no chills, no fever, no headaches, no sore throat, no cough, no shortness of breath and no rash. Review of Systems Constitutional: Negative for fever, chills, activity change, appetite change and fatigue. HENT: Negative for ear pain, congestion, sore throat, rhinorrhea and neck pain. Respiratory: Negative for cough and shortness of breath. Cardiovascular: Negative for chest pain and palpitations. Genitourinary: Positive for pelvic pain. Skin: Negative for rash and color change. Neurological: Negative for dizziness, syncope, weakness, numbness and headaches. Psychiatric/Behavioral: Negative for behavioral problems. The patient is not nervous/anxious. Current facility-administered medications Medication Dose Route Frequency Provider Last Rate Last Dose ??? ibuprofen (MOTRIN) tablet 600 mg 600 mg Oral Now CARMELA Alatorre Last Dose: 600 mg at 01/22/10 1419 ??? sodium chloride 0.9 % 1,000 mL BOLUS 1,000 mL Intravenous Now CARMELA Alatorre Last Dose: 1000 mL at 01/22/10 1630 ??? ondansetron (PF) (ZOFRAN) injection 4 mg 4 mg Intravenous Now CARMELA Alatorre Last Dose: 4mg at 01/22/10 1656 Current outpatient prescriptions Medication Sig Dispense Refill ??? ondansetron (ZOFRAN) 4 mg tablet Take 1 Tab by mouth every 8 hours as needed for Nausea. 15 Tab 0 ??? naproxen sodium (ANAPROX DS) 550 mg tablet Take 1 Tab by mouth 2 times daily with meals. 30 Tab 3 ??? DISCONTD: nitrofurantoin, macrocrystal-monohydrate, (MACROBID) 100 mg capsule Take 1 Cap by mouth 2 times daily. 14 Cap 0 ??? DISCONTD: methocarbamol (ROBAXIN) 500 mg tablet Take by mouth. One to two tablets by mouth every6-8 hours as needed for pain/spasm 25 Tab 0 ??? [...] as directed as needed for Wheezing. ??? DISCONTD: Etonogestrel (IMPLANON) 68 mg Impl by Subdermal [...] -- 0.5 packs/day ??? Alcohol Use: No Family History Problem Relation Age of Onset ??? Depression Mother ??? Depression Maternal Grandfather severe BP 122/76 Pulse 82 Temp(Src) 98.2 ??F (36.8 ??C) (Temporal) Resp 18 Physical Exam Nursing note and vitals reviewed. Constitutional: She is oriented to person, place, and time. She appears well- developed and well-nourished. No distress. HENT: Head: Normocephalic and atraumatic. Right Ear: Tympanic membrane normal. Left Ear: Tympanic membrane normal. Mouth/Throat: Uvula is midline, oropharynx is clear and moist and mucous membranes are normal. No oropharyngeal exudate or posterior oropharyngeal erythema. Eyes: Conjunctivae and extraocular motions are normal. Pupils are equal, round, and reactive to light. Neck: Normal range of motion. Neck supple. Cardiovascular: Normal rate, regular rhythm and normal heart sounds. Pulmonary/Chest: Effort normal and breath sounds normal. No respiratory distress. She has no wheezes. She has no rhonchi. She has no rales. She exhibits no tenderness. Breath sounds equal B/L Abdominal: Soft. Tenderness (mild tenderness in RLQ) is present. She has no rebound and no guarding. Genitourinary: There is no rash, tenderness or lesion on the right labia. There is no rash, tenderness or lesion on the left labia. Uterus is not enlarged and not tender. Cervix exhibits discharge (minimal blood from os). Cervix exhibits no motion tenderness. Right adnexum displays tenderness. Right adnexum displays no mass and no fullness. Left adnexum displays no mass, no tenderness and no fullness. There is bleeding around the vagina. No erythema around the vagina. No signs of injury around the vagina. No discharge found. Musculoskeletal: Normal range of motion. She exhibits no edema and no tenderness. Lymphadenopathy: She has no cervical adenopathy. Neurological: She is alert and oriented to person, place, and time. She displays normal reflexes. She exhibits normal muscle tone. Skin: Skin is warm and dry. No rash noted. Psychiatric: She has a normal mood and affect. Her behavior is normal. Consult orders: None PCP: Carmela Sanchez MD Results for orders placed during the hospital encounter of 01/22/10 TEST, URINE Component Value Range ??? Result- Test, Ur Value: Neg Performed at [facility], [place], [place] POCT URINE DIPSTICK Component Value Range ??? Color, UA Yellow ??? Clarity, UA Clear ? ? Glucose, UA Negative > Negative (mg/dL) ? ? Bilirubin, UA Negative > Negative ? ? Ketones, UA Negative > Negative (mg/dL) ? ? Spec Grav, UA 1.020 > 1.010, 1.015, 1.020, 1.025 ? ? Blood, UA 2+ (*) > Negative ??? pH, UA 7.0 4.6 - 8.0 ? ? Protein, UA Negative > Negative (mg/dL) ??? Urobilinogen, UA 1.0 0.2 - 1.0 (E.U./dL) ? ? Nitrite, UA Negative > Negative ? ? Leuk Esterase Negative > Negative ??? Comment HEMAGRAM AND DIFFERENTIAL Component Value Range ??? WBC 10.70 4.0-12.4 (K/cmm) ??? RBC 4.68 3.86-5.04 (M/cmm) ??? Hemoglobin 15.6 (*) 11.6-15.2 (gm/dl) ??? HCT 42.8 34.9-44.4 (%) ??? MCV 91 81-98 (fl) ??? MCH 33.3 26.7-33.3 (pg) ??? MCHC 36.4 (*) 32.1-35.9 (gm/dl) ??? PLT 248 141-320 (K/cmm) ??? RDW-CV 10.8 (*) 11.7-14.6 (%) ??? Neutrophils 60.7 45.5-79.7 (%) ??? Lymphocytes 30.6 15.0-46.8 (%) ??? Monocytes 5.2 1.8-12.0 (%) ??? Eosinophils 2.4 0.6-6.9 (%) ??? Basophils 1.1 0.2-1.4 (%) ??? ABS Neutrophils 6.53 2.20-8.85 (K/cmm) ??? ABS Lymphs 3.28 1.09-3.30 (K/cmm) ??? ABS Monocytes 0.56 0.1-0.8 (K/cmm) ??? ABS Eosinophils 0.25 0.03-0.61 (K/cmm) ??? ABS Basophils 0.11 0.01-0.11 (K/cmm) ??? Type of Diff: Automated COMPREHENSIVE METABOLIC PANEL (CMP) Component Value Range ??? Potassium 4.3 3.5-5.0 (mEq/L) ??? Sodium 141 136-145 (mEq/L) ??? Chloride 106 96-110 (mEq/L) ??? CO2 24 24-32 (mEq/L) ??? Total Alkaline Phosphatase 128 (*) 38-126 (U/L) ??? Bilirubin, Total 0.7 0.2-1.3 (mg/dl) ??? AST 30 15-46 (U/L) ??? ALT 30 9-52 (U/L) ??? Albumin 4.5 3.4-4.9 (g/dl) ??? Total Protein 7.5 6.5-8.3 (g/dl) ??? Creatinine 0.66 (*) 0.7-1.5 (mg/dl) ? ? GFR, Calculated >60 (ml/min/1.73m2) ??? BUN 8 (*) 10-26 (mg/dl) ??? Calcium 9.6 8.5-10.5 (mg/dl) ??? Calculated Calcium 9.5 8.5-10.5 (mg/dl) ??? Glucose, Serum 78 70-100 (mg/dl) ??? Fasting? Value: Unknown Performed at [place], [place] LIPASE Component Value Range ??? Lipase 47 0-250 (U/L) AMYLASE Component Value Range ??? Amylase 46 30-110 (U/L) CHLAMYDIA/GC AMPLIFIED Component Value Range ??? Specimen Description Value: Cervix Performed at [place], [place] ??? Result-Chlamydia Amp Probe ??? Result-GC Amp Probe Radiology orders: None Procedures Course: Pt had marked relief of pain and cramping after po motrin, IV zofran and bolus of NS. She continues to have mild tenderness with no rebound Instructed in heel drop test and to have a low threshold to go to the ED for any worsening, new symptoms or any uncontrolled, worsening or constant pain. 1. Abdominal pain (789.00AP) TEST, URINE, POCT URINE DIPSTICK, TEST, URINE, POCTURINE DIPSTICK, HEMAGRAM AND DIFFERENTIAL, COMPREHENSIVE METABOLIC PANEL (CMP), LIPASE, AMYLASE, HEPATITIS C ANTIBODY, HIV ANTIBODY, SYPHILIS SEROLOGY, HEMAGRAM AND DIFFERENTIAL, COMPREHENSIVE METABOLIC PANEL (CMP), LIPASE, AMYLASE, HEPATITIS C ANTIBODY, HIV ANTIBODY, SYPHILIS SEROLOGY, CHLAMYDIA/GC AMPLIFIED, CHLAMYDIA/GC AMPLIFIED Pt relatively pain free on discharge. rx for zofran, naproxen. Advised to return as above. Dr. Shay Morfin was available for consultation during my care of this patient. MDM 01/22/2010 19:21 Maggy Maddox LPN - 01/22/2010 1648 EDT Resting quietly IV infusing well. documented in this encounter Miscellaneous Notes Scanned Note-Null - Inpatient, MD Rosemarie - 01/22/2010 0000 EDT documented in this encounter Plan of Treatment Not on filedocumented as of this encounter Procedures Procedure Name Priority Date/Time Associated Comments Diagnosis CHLAMYDIA/N. STAT 01/22/2010 16:31 Abdominal pain Results f or this GONORRHOEAE AMPLIFIED EDT proced ure are in RNA the results section. SYPHILIS SEROLOGY STAT 01/22/2010 16:17 Abdominal pain Resu lts for this EDT procedure are i n the results section. HEPATITIS C AB W STAT 01/22/2010 16:17 Abdominal pain Resul ts for this REFLEX TO HCV RNA BY EDT procedu re are in PCR the results section. COMPLETE BLOOD COUNT STAT 01/22/2010 16:17 Abdominal pain R esults for this AND DIFFERENTIAL EDT procedure a re in the results section. HIV 1/2 ANTIGEN AND STAT 01/22/2010 16:17 Abdominal pain Re sults for this ANTIBODY, 4TH EDT procedure are in GENERATION the results section. LIPASE STAT 01/22/2010 16:17 Abdominal pain Results f or this EDT procedure are i n the results section. AMYLASE STAT 01/22/2010 16:17 Abdominal pain Results f or this EDT procedure are i n the results section. COMPREHENSIVE STAT 01/22/2010 16:17 Abdominal pain Results for this METABOLIC PANEL (CMP) EDT proced ure are in the results section. POCT URINE DIPSTICK, STAT 01/22/2010 14:26 Abdominal pain R esults for this CLINITEK EDT procedure are i n the results section. TEST, URINE STAT 01/22/2010 14:02 Abdominal pain Results for this EDT procedure are i n the results section. documented in this encounter Results CHLAMYDIA/GC AMPLIFIED (01/22/2010 16:31 EDT) Specimen Cervix [facility] Description Performed at [facility], [place], [place] LAB Chlamydia Result No Chlamydia [facility] trachomatis DNA LAB detected by medical assistant mediated amplification. GC Result No Neisseria [facility] gonorrhoeae DNA LAB detected by medical assistant mediated amplification. Specimen Other (qualifier value) - Cervix Performing Organization Address City/State/ZIP Code Phon e Number [facility] [address] [place] [address] SERVICES [facility] [address] [place] [address] SYPHILIS SEROLOGY (01/22/2010 16:17 EDT) Pathologist [facility] [place] Syphilis Serology Interpretation: [facility] Nonreactive Reference Range: Nonreactive Specimen Blood specimen (specimen) Performing Organization Address [facility] Phon e Number [facility] [address] [place] [address] SERVICES [facility] [address] [place] [address] HIV ANTIBODY (01/22/2010 16:17 EDT) Pathologist [facility] [place] HIV 1/2 Antibody Negative Reference [facility] Range: Negative Specimen Blood specimen (specimen) Performing Organization Address [facility] Phon e Number [facility] [address] [place] [address] SERVICES [facility] [address] [place] [address] HEPATITIS C ANTIBODY (01/22/2010 16:17 EDT) Pathologist Sig nature Hepatitis C Ab Negative Reference [facility] Range: Negative Specimen Blood specimen (specimen) Performing Organization Address [facility] Phon e Number [facility] [address] [place] [address] SERVICES [facility] [address] [place] [address] AMYLASE (01/22/2010 16:17 EDT) Pathologist Sig nature Amylase 46Comment: Performed 30 - 110 U/L [facility] at [facility], [place], [place] Specimen Blood specimen (specimen) Performing Organization Address [facility] Phon e Number [facility] [address] [place] [address] SERVICES [facility] [address] [place] [address] LIPASE (01/22/2010 16:17 EDT) Pathologist Sig nature Lipase 47Comment: Performed 0 - 250 U/L [facility] at [facility], [place], [place] Specimen Blood specimen (specimen) Performing Organization Address [facility] Phon e Number [facility] [address] [place] [address] SERVICES [facility] [address] [place] [address] (ABNORMAL) COMPREHENSIVE METABOLIC PANEL (CMP) (01/22/2010 16:17 EDT) Potassium 4.3 3.5 - 5.0 [facility] mEq/L LAB Sodium 141 136 - 145 [facility] mEq/L LAB Chloride 106 96 - 110 [facility] mEq/L LAB CO2 24 24 - 32 mEq/L [facility] Total Alkaline 128 (H) 38 - 126 U/L [facility] Phosphatase LAB Bilirubin, Total 0.7 0.2 - 1.3 [facility] mg/dl LAB AST 30 15 - 46 U/L [facility] ALT 30 9 - 52 U/L [facility] Albumin 4.5 3.4 - 4.9 [facility] g/dl LAB Total Protein 7.5 6.5 - 8.3 [facility] g/dl LAB Creatinine 0.66 (L) 0.7 - 1.5 [facility] mg/dl LAB GFR, Calculated >60 ml/min/1.73m2 [facility] BUN 8 (L) 10 - 26 mg/dl [facility] Calcium 9.6 8.5 - 10.5 [facility] mg/dl LAB Calculated Calcium 9.5 8.5 - 10.5 [facility] mg/dl LAB Glucose, Serum 78 70 - 100 [facility] mg/dl LAB Fasting? Unknown [facility] Performed at [facility], [place], [place] LAB Specimen Blood specimen (specimen) Performing Organization Address City/State/ZIP Code Phon e Number [facility] [address] [place] [address] SERVICES [facility] [address] [place] [address] (ABNORMAL) HEMAGRAM AND DIFFERENTIAL (01/22/2010 16:17 EDT) WBC 10.70 4.0 - 12.4 [facility] K/cmm RBC 4.68 3.86 - 5.04 [facility] M/cmm Hemoglobin 15.6 (H) 11.6 - 15.2 [facility] gm/dl HCT 42.8 34.9 - 44.4 % [facility] MCV 91 81 - 98 fl [facility] MCH 33.3 26.7 - 33.3 pg [facility] MCHC 36.4 (H) 32.1 - 35.9 [facility] gm/dl PLT 248 141 - 320 [facility] K/cmm RDW-CV 10.8 (L)Comment: 11.7 - 14.6 % [facility] Performed at [facility], [place], [place] Neutrophils 60.7 45.5 - 79.7 % [facility] Lymphocytes 30.6 15.0 - 46.8 % [facility] Monocytes 5.2 1.8 - 12.0 % [facility] Eosinophils 2.4 0.6 - 6.9 % [facility] Basophils 1.1 0.2 - 1.4 % [facility] ABS Neutrophils 6.53 2.20 - 8.85 [facility] K/cmm ABS Lymphs 3.28 1.09 - 3.30 [facility] K/cmm ABS Monocytes 0.56 0.1 - 0.8 [facility] K/cmm ABS Eosinophils 0.25 0.03 - 0.61 [facility] K/cmm ABS Basophils 0.11 0.01 - 0.11 [facility] K/cmm Type of Diff: Automated [facility] Specimen Blood specimen (specimen) Performing Organization Address City/State/ZIP Code Phon e Number [facility] [address] [place] [address] SERVICES [facility] [address] [place] [address] (ABNORMAL) POCT URINE DIPSTICK (01/22/2010 14:26 EDT) Pathologist Sig nature Color, UA Yellow [facility] Clarity, UA Clear [facility] Glucose, UA Negative Negative mg/dL [facility] Bilirubin, UA Negative Negative [facility] Ketones, UA Negative Negative mg/dL [facility] Spec Grav, UA 1.020 1.010, 1.015, 1.020, POINT OF CARE 1.025 Blood, UA 2+ (A) Negative POINT OF CARE pH, UA 7.0 [...] UVN POINT OF CARE POINT OF CARE TEST, URINE (01/22/2010 14:02 EDT) Result- Neg [facility] Test, Ur Performed at [facility], [place], [place] Specimen Urine (substance) Performing Organization Address City/State/ZIP Code Phon e Number [facility] [address] [place] [address] SERVICES [facility] [address] [place] [address] documented in this encounter Visit Diagnoses Diagnosis Abdominal pain Abdominal pain, unspecified site Abdominal pain, unspecified site documented in this encounter Administered Medications Inactive Administered Medications - up to 3 most recent administrations Medication Order MAR Action Action Date Dose Rate Site ibuprofen (MOTRIN) tablet 600 mg Given 01/22/2010 14:19 EDT 600 mg 600 mg, oral, NOW X1, 1 dose, On 01/22/10 at 1415, Routine ondansetron (PF) (ZOFRAN) injection 4 mg Given 01/22/2010 16:56 EDT 4 mg 4 mg, intravenous, NOW X1, 1 dose, On 01/22/10 at 1630, Routine sodium chloride 0.9 % 1,000 mL BOLUS Given 01/22/2010 16:30 EDT 1,000 mL 1,000 mL, intravenous, NOW X1, 1 dose, On 01/22/10 at 1630, Routine documented in this encounter Discontinued Medications Medication Sig Discontinue Reason Start Date End Date Etonogestrel (IMPLANON) by Subdermal route. Therapy completed 01/22/2010 68 mg Impl methocarbamol (ROBAXIN) Take by mouth. One Therapy completed 200901/22/2010 500 mg tablet to two tablets by mouth every 6-8 hours as needed for pain/spasm nitrofurantoin, Take 1 Cap by mouth 01/06/201001/22 macrocrystal-monohydrate 2 times daily. , (MACROBID) 100 mg capsule nitrofurantoin, Take 1 Cap by mouth 01/06/201001/22 macrocrystal-monohydrate 2 times daily. , (MACROBID) 100 mg capsule documented as of this encounter Active and Recently Administered Medications Times are shown in EDT. Scheduled Medication Order 01/20/2010 01/21/2010 01/22/2010 ibuprofen (MOTRIN) tablet 600 mg (COMPLETED) 1419 (Given - Provider: Rashida Velázquez RN) 600 mg, Oral, NOW X1, 1 dose, 01/22/10 at 1415 ondansetron (PF) (ZOFRAN) injection 4 mg (COMPLETED) 1656 (Given - Provider: Rashida Velázquez RN) 4 mg, Intravenous, NOW X1, 1 dose, 01/22/10 at 1630 sodium chloride 0.9 % 1,000 mL BOLUS (COMPLETED) 1630 (Given - Provider: Maggy Barney LPN) 1,000 mL, Intravenous, NOW X1, 1 dose, 01/22/10 at 1630 documented in this encounter Orders Nursing Count Last Ordered Date First Ordered Date INSERT SALINE LOCK 1 01/22/2010 documented in this encounter Care Teams Inside Contractor Sales Relationship Specialty Start Date End Date Carmela Sanchez MD PCP - General 07/30/08 08/13/[address] [place] [address] [phone] documented as of this encounter
--- OUTSIDE RECORDS SUMMARY | 2021-10-28 15:13 | XMS_ITS | Encounter Summary ---
:1990 Author Organization [facility] Address [address] [place] [address] Care Team Providers Name Role Phone Carmela Sanchez MD Primary Care Provider Encounter Details Date Type Department Care Team Description 09/03/2009 Hospital Encounter [facility] - Carmela Sanchez MD Medical Office [address] [phone] [place] [address] (Wo rk) Social History Tobacco [...] Code Departure Means Destination Home or Self Fdc documented in this encounter Plan of Treatment Not on filedocumented as of this encounter Visit Diagnoses Not on filedocumented in this encounter Care Teams Supervisor Extruding Department Relationship Specialty Start Date End Date Carmela Sanchez MD PCP - General 07/30/08 08/13/[address] [place] [address] [phone] documented as of this encounter
--- OUTSIDE RECORDS SUMMARY | 2021-10-28 15:13 | XMS_ITS | Encounter Summary ---
:1990 Author Organization [facility] Address [address] [place] [id number] Care Team Providers Name Role Phone Carmela Sanchez MD Primary Care Provider Encounter Details Date Type Department Care Team Description 03/16/2009 Abstract [facility] Family Carmela Sanchez MD [place] [id number] [address] [place] [address] [phone] Social History Tobacco Use Types Packs/Day Years [...] on filedocumented in this encounter Care Teams Industrial Pharmacist Relationship Specialty Start Date End Date Carmela Sanchez MD PCP - General 07/30/08 08/13/11 [address] [place] [phone] documented as of this encounter
--- OUTSIDE RECORDS SUMMARY | 2021-10-28 15:13 | XMS_ITS | Encounter Summary ---
:1990 Author Organization [facility] Address [address] [place] [address] Care Team Providers Name Role Phone Carmela Sanchez MD Primary Care Provider Encounter Details Date Type Department Care Team Description 07/22/2009 Hospital Encounter [facility] - Elias Felix, [facility] [address] [address] [facility] [address] [phone] [place] [phone] (Wo rk) Social History Tobacco [...] Self Group Home documented in this encounter Procedure Notes InpatientPhysician MD - 07/22/2009 0000 EDTAssociated Order(s): ORDERS - SCANNED; ORDERS - SCANNED documented in this encounter Plan of Treatment Not on filedocumented as of this encounter Procedures Procedure Name Priority Date/Time Associated Diagnosis Comme nts ORDERS - SCANNED 12/24/2009 15:45 EDT Res ults for this procedure are i n the results section. documented in this encounter Results ORDERS - SCANNED (12/24/2009 15:45 EDT) Specimen Narrative This result has an attachment that is no t available. Procedure Note Physician Longo MD - 07/22/2009 0: 00 EDT documented in this encounter Visit Diagnoses Not on filedocumented in this encounter Care Teams Counseling Center Manager Relationship Specialty Start Date End Date Carmela Sanchez MD PCP - General 07/30/08 08/13/[address] [place] [address] [phone] documented as of this encounter
--- OUTSIDE RECORDS SUMMARY | 2021-10-28 15:13 | XMS_ITS | Encounter Summary ---
:1990 Author Organization [facility] Address [address] [place] [address] Care Team Providers Name Role Phone Carmela Sanchez MD Primary Care Provider Encounter Details Date Type Department Care Team Description 07/13/2009 Hospital Encounter [facility] - Elias Felix, [facility] [address] [address] [facility] [address] [phone] [place] [address] (Wo rk) Social History Tobacco [...] Code Departure Means Destination Home or Self Custodial documented in this encounter Plan of Treatment Not on filedocumented as of this encounter Procedures Procedure Name Priority Date/Time Associated Comments Diagnosis ENDOMYSIAL ANTIBODY, Routine 07/13/2009 15:15 Res ults for this SERUM EDT procedure are i n the results section. TISSUE TRANSGLUTAMINASE Routine 07/13/2009 15:15 Results for this ANTIBODY EDT procedure are i n the results section. IGA Routine 07/13/2009 15:15 Results for this EDT procedure are i n the results section. TSH Routine 07/13/2009 15:15 Results for this EDT procedure are i n the results section. documented in this encounter Results TSH (07/13/2009 15:15 EDT) Pathologist Sig nature TSH 1.42 0.35 - 5.00 uIU/ml [facility] Specimen Blood specimen (specimen) Performing Organization Address City/State/ZIP Code Phon e Number [facility] [address] [place] [address] SERVICES [facility] [address] [place] [address] ENDOMYSIAL ANTIBODY, SERUM (07/13/2009 15:15 EDT) Endomysial Negative [facility] Antibodies Reference range: Negative LAB Analyte Specific Reagent ? This test was developed and its performance characteristics ? determined by [facility], [place]. This test has not be en cleared or ? approved by the U.S. Food an d Drug Administration. ? Performed or Referred by: [facility] D[facility] of Lab Med and Path, [address] ? [place] [address], Lab Dir: Michael Ortega III, ? MD ? Specimen Blood specimen (specimen) Performing Organization Address [facility]/ZIP [facility] Phon e Number [facility] [address] [place] [address] SERVICES [facility] [address] [place] [address] IGA (07/13/2009 15:15 EDT) Pathologist Sig nature IgA 291 82 - 453 mg/dl [facility] Specimen Blood specimen (specimen) Performing Organization Address City/[facility]/ZIP Code Phon e Number [facility] [address] [place] [address] SERVICES [facility] [address] [place] [address] TISSUE TRANSGLUTAMINASE ANTIBODY (07/13/2009 15:15 EDT) Pathologist Sig nature Tissue Transglutaminase Ab 6.20 <15.01 U/ml [facility] Specimen Blood specimen (specimen) Performing Organization Address City/[facility]/ZIP Code Phon e Number [facility] [address] [place] [address] SERVICES [facility] [address] [place] [address] documented in this encounter Visit Diagnoses Not on filedocumented in this encounter Care Teams Consumer Advocate Relationship Specialty Start Date End Date Carmela Sanchez MD PCP - General 07/30/08 08/13/11 [address] [place] [phone] documented as of this encounter
--- OUTSIDE RECORDS SUMMARY | 2021-10-28 15:13 | XMS_ITS | Encounter Summary ---
:1990 Author Organization [facility] Address [address] [place] [address] Care Team Providers Name Role Phone Carmela Sanchez MD Primary Care Provider Reason for Visit Reason Comments Dizziness onset after cold 03/02; inte rmittent with nausea and now constant with occasional vomiting Encounter Details Date Type Department Care Team Description 03/07/2010 Hospital Encounter [facility] Janak Houston, [facility] - [address] [address] [place], [place] [phone] (Wo rk) Social History Tobacco Use Types [...] Pressure - - Pulse - - Temperature 37.1 ??C (98.8 ??F) 03/07/2010 1607 EST Respiratory Rate 14 03/07/2010 1607 EST Oxygen Saturation - - Inhaled Oxygen Concentration - - Weight - - Height - - Body Mass Index - - documented in this encounter Discharge Instructions Meredith Malhotra NP - 03/07/2010 As we discussed, begin taking a decongestant daily, and take it for the next 7 days. Use the meclizine as needed. If you develop any new or worsening symptoms, return to the [facility] in [facility] for another evaluation. Otherwise, follow up with your regular doctor in 1 week.[facility] Patient Instructions Dizziness: After Your Visit Your Care Instructions Dizziness is the feeling of unsteadiness or fuzziness in your head. It is different than having vertigo, which is a feeling that the room is spinning or that you are moving or falling. It is also different from lightheadedness, which is the feeling that you are about to faint. It can be hard to know what causes dizziness. Some people feel dizzy when they have migraine headaches. Sometimes bouts of flu can make you feel dizzy. Some medical conditions, such as heart problems or high blood pressure, can make you feel dizzy. Many medicines can cause dizziness, including medicines for high blood pressure, pain, or anxiety. If a medicine causes your symptoms, your doctor may recommend that you stop or change the medicine. If it is a problem with your heart, you may need medicine to help your heart work better. If there isno clear reason for your symptoms, your doctor may suggest watching and waiting for a while to see if the dizziness goes away on its own. Follow-up care is a borden part of your treatment and safety. Be sure to make and go to all appointments, and call your doctor if you are having problems. It???s also a good idea to know your test resultsand keep a list of the medicines you take. How can you care for yourself at home? ?? If your doctor recommends or prescribes medicine, take it exactly as directed. Call your doctor if you think you are having a problem with your medicine. ?? Do not drive while you feel dizzy. ?? Try to prevent falls. Steps you can take include: ?? Using nonskid mats, adding grab bars near the tub, and using night-lights. ?? Clearing your home so that walkways are free of anything you might trip on. ?? Letting family and friends know that you have been feeling dizzy. This will help them know how tohelp you. When should you call for help? Call 911 anytime you think you may need emergency care. For example, call if: ?? You pass out (lose consciousness). ?? You have dizziness along with signs of a heart attack, which may include: ?? Chest pain. ?? Sweating. ?? Shortness of breath. ?? Nausea or vomiting. ?? Pain that spreads from the chest to the neck, jaw, or one or both shoulders or arms. ?? Fast or uneven pulse. ?? Dizziness occurs with signs of a stroke. These may include: ?? Sudden numbness, paralysis, or weakness in your face, arm, or leg, especially on only one side ofyour body. ?? New problems with walking or balance. ?? Sudden vision changes. ?? New problems speaking or understanding simple statements, or feeling confused. ?? A sudden, severe headache that is different from past headaches. Call your doctor now or seek immediate medical care if: ?? You feel dizzy and have a fever, headache, or ringing in your ears. ?? You have new or increased nausea and vomiting. ?? Your dizziness does not go away or comes back. Watch closely for changes in your health, and be sure to contact your doctor if: ?? You do not get better as expected. Where can you learn more? Go to www.[employer].net/fahc Enter Q823 in the search box to learn more about Dizziness: After Your Visit. ?? 2005 - 2008 [employer]. Care instructions adapted under license by [facility] . This care instruction is for use with your licensed healthcare professional. If youhave questions about a medical condition or this instruction, always ask your healthcare professional. [employer] disclaims any warranty or liability for your use of this information. documented in this encounter Medications at Time of Discharge Medication Sig Dispensed Refills Start Date End Date albuterol (VENTOLIN HFA) Inhale 2 Puffs as 0 04/13/2010 90 mcg/Actuation inhaler directed as needed for Wheezing. dicyclomine (BENTYL) 20 Take 20 mg by mouth 0 06/05/2010 mg tablet as needed. fluoxetine (PROZAC) 10 mg Take 1 Cap [...] 500 mg tablet mouth daily as needed. omeprazole (PRILOSEC) 20 Take 1 Cap by mouth 30 Cap 5 09/12/2010 mg capsuleIndications: daily. GERD (gastroesophageal reflux disease) documented as of this encounter Ordered Prescriptions Prescription Sig Dispensed Refills Start Date End Date meclizine (ANTIVERT) 25 mg Take 1 Tab by mouth 10 Tab 0 03/07/2010 04/13/2010 tablet 3 times daily as needed. documented in this encounter Discharge Disposition Disposition Code Departure Means Destination Home or Self Care Walk-out Home documented in this encounter ED Notes Meredith Houston NP - 03/07/2010 1634 EST DOS: 03/07/2010 Chief Complaint Patient presents with ??? Dizziness onset after cold 03/02; intermittent with nausea and now constant with occasional vomiting The patient is a 20 y.o. female who presents today with Dizziness HPI Comments: Patient presents with a one-week history of intermittent dizziness, associated with nausea. Symptoms started one week after she had developed an upper respiratory infection, which has nowresolved. The history is provided by the patient. The current episode started 5 to 7 days ago. The patient reports sense of rotation. Associated symptoms include nausea. Pertinent negatives include no hearing loss and no vomiting. Symptoms are improved by nothing. Symptoms are made worse by movement. The Symptoms are described as moderate. Review of Systems Constitutional: Negative for fever, chills, diaphoresis, activity change, appetite change, fatigue and unexpected weight change. HENT: Positive for congestion (mild) and neck pain (mild - lateral aspects). Negative for hearing loss, ear pain, sore throat, rhinorrhea, sneezing, neck stiffness, sinus pressure and ear discharge. Eyes: Negative for photophobia, pain and visual disturbance. Respiratory: Negative for cough and shortness of breath. Cardiovascular: Negative for chest pain. Gastrointestinal: Positive for nausea. Negative for vomiting and abdominal pain. 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 Skin: Negative for rash. Neurological: Positive for dizziness and headaches (intermittent, none currently). No current facility-administered medications on file. Current outpatient prescriptions Medication Sig Dispense Refill ??? methocarbamol (ROBAXIN) 500 mg tablet Take 1,000 mg by mouth daily as needed. ??? meclizine (ANTIVERT) 25 mg tablet Take 1 Tab by mouth 3 times daily as needed. 10 Tab 0 ??? fluoxetine (PROZAC) 10 mg [...] Puffs as directed as needed for Wheezing. Allergies Allergen Reactions ??? Sulfa (Sulfonamide Antibiotics) Anaphylaxis ??? Bee Pollens Anaphylaxis Past Medical History Diagnosis Date ??? Migraine ??? Acid reflux ??? 2007 ??? Asthma ??? Varicella infection, resolved noted 1994 ??? Depressive disorder noted 08/11/2008 ??? Anxiety states noted 11/03/2008 ??? Irritable bowel syndrome History Substance Use Topics ??? Tobacco Use: Yes -- 0.5 packs/day for .5 years ??? Alcohol Use: Yes occassionally Family History Problem Relation Age of Onset ??? Depression Mother ??? Depression Maternal Grandfather severe Temp(Src) 98.8 ??F (37.1 ??C) (Oral) Resp 14 LMP 01/18/2010 Physical Exam Nursing note and vitals reviewed. Constitutional: She is oriented to person, place, and time. She appears well- developed and well-nourished. HENT: Head: Normocephalic. Right Ear: External ear normal. Left Ear: External ear normal. Nose: Nose normal. Mouth/Throat: Oropharynx is clear and moist. No oropharyngeal exudate. Eyes: Conjunctivae and extraocular motions are normal. Pupils are equal, round, and reactive to light. Right eye exhibits normal extraocular motion and no nystagmus. Left eye exhibits normal extraocular motion and no nystagmus. Neck: Normal range of motion. Neck supple. Pulmonary/Chest: Effort normal. Lymphadenopathy: She has no cervical adenopathy. Neurological: She is alert and oriented to person, place, and time. She has normal strength. She displays no tremor. No cranial nerve deficit or sensory deficit. She exhibits normal muscle tone. She displays a negative Romberg sign. Coordination and gait normal. GCS eye subscore is 4. GCS verbal subscore is 5. GCS motor subscore is 6. Normal finger to nose. Skin: Skin is warm and dry. Psychiatric: She has a normal mood and affect. Consult orders: None PCP: Carmela Sanchez MD Results for orders placed during the hospital encounter of 03/07/10 TEST, URINE Component Value Range ??? Result- Test, Ur Value: Neg Performed at [facility], [place], [place] HEMAGRAM Component Value Range ??? WBC 9.15 4.0-12.4 (K/cmm) ??? RBC 4.71 3.86-5.04 (M/cmm) ??? Hemoglobin 15.3 (*) 11.6-15.2 (gm/dl) ??? HCT 42.8 34.9-44.4 (%) ??? MCV 91 81-98 (fl) ??? MCH 32.5 26.7-33.3 (pg) ??? MCHC 35.8 32.1-35.9 (gm/dl) ??? PLT 204 141-320 (K/cmm) ??? RDW-CV 10.4 (*) 11.7-14.6 (%) POCT URINE DIPSTICK Component Value Range ??? Color, UA Yellow ??? Clarity, UA Clear ? ? Glucose, UA Negative > Negative (mg/dL) ? ? Bilirubin, UA Negative > Negative ? ? Ketones, UA Negative > Negative (mg/dL) ? ? Spec Grav, UA 1.015 > 1.010, 1.015, 1.020, 1.025 ? ? Blood, UA Negative > Negative ??? pH, UA 7.0 4.6 - 8.0 ? ? Protein, UA Negative > Negative (mg/dL) ??? Urobilinogen, UA 0.2 0.2 - 1.0 (E.U./dL) ? ? Nitrite, UA Negative > Negative ? ? Leuk Esterase Negative > Negative ??? Comment TSH Component Value Range ??? TSH 1.44 0.35-5.00 (uIU/ml) Radiology orders: None Procedures Course: Patient stable. Advised decongestants and meclizine prn for BPV. Diagnoses that have been ruled out: Diagnoses that are still under consideration: Final diagnoses: Dizziness 1. Dizziness (780.4A) Dr. Sekou Prajapati was available for consultation during my care of this patient. MDM Number of Diagnoses or Management Options Emesis: Amount and/or Complexity of Data Reviewed Clinical lab tests: ordered and reviewed Risk of Complications, Morbidity, and/or Mortality Presenting problems: moderate Diagnostic procedures: low Management options: low 03/08/2010 14:35 documented in this encounter Miscellaneous Notes Scanned Note-Null - Inpatient, MD Rosemarie - 03/07/2010 0000 EST documented in this encounter Plan of Treatment Not on filedocumented as of this encounter Procedures Procedure Name Priority Date/Time Associated Diagnosis Comme nts POCT URINE STAT 03/07/2010 17:09 Results for this DIPSTICK, CLINITEK EST procedure are in the results section. TEST, STAT 03/07/2010 17:04 Results for this URINE EST procedure are i n the results section. COMPLETE BLOOD STAT 03/07/2010 16:42 Results f or this COUNT EST procedure are i n the results section. TSH STAT 03/07/2010 16:42 Results for this EST procedure are i n the results section. documented in this encounter Results POCT URINE DIPSTICK (03/07/2010 17:09 EST) Pathologist Sig nature Color, UA Yellow POINT OF CARE Clarity, UA Clear POINT OF CARE Glucose, UA Negative Negative mg/dL POINT OF CARE Bilirubin, UA Negative Negative POINT OF CARE Ketones, UA Negative Negative mg/dL POINT OF CARE Spec Grav, UA 1.015 1.010, 1.015, 1.020, POINT OF CARE 1.025 Blood, UA Negative Negative POINT OF CARE pH, UA 7.0 4.6 - 8.0 POINT OF CARE Protein, UA Negative Negative mg/dL POINT OF CARE Urobilinogen, UA 0.2 0.2 - 1.0 E.U./dL POINT OF CARE Nitrite, UA Negative Negative POINT OF CARE Leuk Esterase Negative Negative POINT OF CARE Comment POINT OF CARE Specimen Urine (substance) Performing Organization Address [facility]/ZIP [facility] Phon e Number [facility] POINT OF CARE POINT OF CARE TEST, URINE (03/07/2010 17:04 EST) Result- Neg [facility] Test, Ur Performed at [facility], [place], [place] Specimen Urine (substance) Performing Organization Address City/[facility]/ZIP Code Phon e Number [facility] [address] [place] [address] SERVICES [facility] [address] [place] [address] TSH (03/07/2010 16:42 EST) Pathologist Sig nature TSH 1.44 0.35 - 5.00 uIU/ml [facility] Specimen Blood specimen (specimen) Performing Organization Address City/[facility]/ZIP Code Phon e Number [facility] [address] [place] [address] SERVICES [facility] [address] [place] [address] (ABNORMAL) HEMAGRAM (03/07/2010 16:42 EST) Pathologist Sig nature WBC 9.15 4.0 - 12.4 [facility] K/cmm RBC 4.71 3.86 - 5.04 [facility] M/cmm Hemoglobin 15.3 (H) 11.6 - 15.2 [facility] gm/dl HCT 42.8 34.9 - 44.4 % [facility] MCV 91 81 - 98 fl [facility] MCH 32.5 26.7 - 33.3 pg [facility] MCHC 35.8 32.1 - 35.9 [facility] gm/dl PLT 204 141 - 320 K/cmm [facility] RDW-CV 10.4 (L)Comment: 11.7 - 14.6 % [facility] Performed at [facility], [place], [place] Specimen Blood specimen (specimen) Performing Organization Address City/State/ZIP Code Phon e Number [facility] [address] [place] [address] SERVICES [facility] [address] [place] [address] documented in this encounter Visit Diagnoses Diagnosis Dizziness Dizziness and giddiness documented in this encounter Discontinued Medications Medication Sig Discontinue Reason Start Date End Date Etonogestrel 68 mg by Subdermal Therapy completed 09/17/200802/08 (IMPLANON) 68 mg route once. ImplIndications: Indications: CONTRACEPTION contraception documented as of this encounter Historical Medications This list may reflect changes made after this encounter. Medication Sig Dispensed Refills Start Date End Date methocarbamol (ROBAXIN) 500 Take 1,000 mg by 0 04/13/2010 mg tablet mouth daily as needed. added in this encounter Care Teams Gravity Prospecting Supervisor Relationship Specialty Start Date End Date Carmela Sanchez MD PCP - General 07/30/08 08/13/[address] [place] [phone] documented as of this encounter
--- OUTSIDE RECORDS SUMMARY | 2021-10-28 15:13 | XMS_ITS | Encounter Summary ---
:1990 Author Organization [facility] Address [address] [place] [address] Care Team Providers Name Role Phone Carmela Sanchez MD Primary Care Provider Reason for Visit Reason Comments Gynecologic Exam no complaints Encounter Details Date Type Department Care Team Description 02/24/2010 Office Visit [facility] Kel Rivera Rou tine gynecological examination (Primary Dx); Women's Services - Screening examination for venereal disea [facility] [address] [facility] [address] [place] [address] [phone] (Wo rk) Social History Tobacco Use Types [...] Reading Time Taken Comments Blood Pressure 110/70 02/24/2010 0813 EST Pulse - - Temperature - - Respiratory Rate - - Oxygen Saturation - - Inhaled Oxygen Concentration - - Weight 72.4 kg (159 lb 9.6 oz) 02/24/2010 0813 EST Height - - Body Mass Index 26.56 11/01/2009 1302 EDT documented in this encounter Progress Notes Kel Rivera MD - 02/24/2010 0905 EST S. 20 yo with implanon. No complaints. Menses are manageable. Using condoms. O. Neck thyroid ok Breasts no masses External genitalia within normal limits except for area of vitiligo over rt lab dirk Vagina within normal limits Cervix ok (Pap no / HPV no / GC-CT yes ) Uterus small mobile ant adnexae no masses Rectovaginal deferred A. Nl exam P. Pap next year. Return visit in one year. Screening: Mammogram starting age 40. Colonoscopy starting age 50. DEXA when indicated. Kel Rivera MD documented in this encounter Plan of Treatment Not on filedocumented as of this encounter Procedures Procedure Name Priority Date/Time Associated Diagnosis Comme nts CHLAMYDIA/N. Routine 02/24/2010 8:45 Screening Results for this GONORRHOEAE EST examination for procedure ar e in AMPLIFIED RNA venereal disease the result s section. documented in this encounter Results CHLAMYDIA/GC AMPLIFIED (02/24/2010 8:45 EST) Specimen Endocervix [facility] LAB Chlamydia Result CHLAMYDIA TRACHOMATIS DNA de tected by paper plate machine tender mediated amplification. [facility] GC Result No Neisseria gonorrhoeae DNA detected by paper plate machine tender mediated amplification. [facility] Specimen Other (qualifier value) Performing Organization Address City/State/ZIP Code Phon e Number [facility] [address] [place] [address] SERVICES [facility] [address] [place] [address] documented in this encounter Visit Diagnoses Diagnosis Routine gynecological examination - Prim estrella Screening examination for venereal disea se documented in this encounter Discontinued Medications Medication Sig Discontinue Reason Start Date End Date fluoxetine (PROZAC) 20 Take 1 Cap by mouth 11/01/2009 02/24/2010 mg capsuleIndications: daily. Take 20mg and Depression 10mg cap together naproxen sodium (ANAPROX Take 1 Tab by mouth 0 02/24/2010 DS) 550 mg tablet 2 times daily with meals. ondansetron (ZOFRAN) 4 Take 1 Tab by mouth 01/22/2010 02/24/2010 mg tablet every 8 hours as needed for Nausea. documented as of this encounter Historical Medications This list may reflect changes made after this encounter. Medication Sig Dispensed Refills Start Date End Date Etonogestrel (IMPLANON) 68 mg by Subdermal 0 09/0703/07/2010 68 mg ImplIndications: route once. contraception Indications: CONTRACEPTION added in this encounter Care Teams Dental Tech Relationship Specialty Start Date End Date Carmela Sanchez MD PCP - General 07/30/08 08/13/[address] [place] [phone] documented as of this encounter
--- OUTSIDE RECORDS SUMMARY | 2021-10-28 15:14 | XMS_ITS | Encounter Summary ---
:1990 Author Organization [facility] Address [address] [place] [address] Care Team Providers Name Role Phone Carmela Fragoso MD Primary Care Provider Reason for Visit Reason Comments Knee Pain 1 month ago,twisted knee R . Having difficulty standing for long periods time. Encounter Details Date Type Department Care Team Description 09/24/2008 Hospital Encounter [facility] Shay Morfin Anserinus Tendinitis; Urgent Care - [place] MD Medial Meniscus Tear [address] [place]bert [address] [place] [address] [place] [address] Social History Tobacco Use Types Packs/Day [...] 13:04 EST documented as of this encounter Discharge Instructions Shay Collins MD - 09/24/2008 Wet melting ice, on for a half hour then repeat once skin has warmed up - do this as much as you canover the next 4 days. AttachmentsThe following attachments cannot be sent through Care Everywhere.Knee Sprain: After Your VisitMeniscus Tear: After Your Visitdocumented in this encounter Medications at Time of Discharge Medication Sig Dispensed Refills Start Date End Date Etonogestrel (IMPLANON) 68 mg by Subdermal 0 09/0703/07/2010 68 mg ImplIndications: route once. contraception Indications: CONTRACEPTION Etonogestrel (IMPLANON) by Subdermal route. 0 01/22/2010 68 mg Impl ibuprofen (MOTRIN) 600 Take 1 Tab by mouth 30 0 09/0702/26/2009 mg tablet every 6 hours as needed for Pain. metoclopramide (REGLAN) Take 1 Tab by mouth 4 10 0 0 09/22/2008 02/26/2009 10 mg tablet times daily. omeprazole (PRILOSEC) Take 20 mg by mouth 0 11/01/2009 10 mg capsule daily. trazodone (DESYREL) 50 Take 100 mg by mouth 0 02/26/2009 mg tablet at bedtime. documented as of this encounter Ordered Prescriptions Prescription Sig Dispensed Refills Start Date End Date ibuprofen (MOTRIN) 600 mg Take 1 Tab by mouth 30 0 0 09/24/2008 02/26/2009 tablet every 6 hours as needed for Pain. documented in this encounter Discharge Disposition Disposition Code Departure Means Destination Home or Self Care Car Home documented in this encounter ED Notes Shay Morfin MD - 09/25/2008 7932 EDT Images from the original note were not included. Chief Complaint Patient presents with ??? Knee Pain 1 month ago,twisted knee R .Having difficulty standing for long periods time. Patient is a 18 y.o. female presenting with knee pain. Knee Pain Current outpatient prescriptions Medication Sig Dispense Refill ??? Etonogestrel (IMPLANON) 68 mg Impl by Subdermal route. ??? ibuprofen (MOTRIN) 600 mg tablet Take 1 Tab by mouth every 6 hours as needed for Pain. 30 0 ??? metoclopramide (REGLAN) 10 mg tablet Take 1 Tab by mouth 4 times daily. 10 0 ??? omeprazole (PRILOSEC) 10 mg capsule Take by mouth daily. Not Sure of dose ??? trazodone (DESYREL) 50 mg tablet Take 50 mg by mouth at bedtime. Allergies Allergen Reactions ??? Sulfa (Sulfonamide Antibiotics) Past Medical History Diagnosis Date ??? Migraine ??? Acid Reflux ??? 2008 History Substance Use Topics ??? Tobacco Use: Yes -- 0.5 packs/day ??? Alcohol Use: No History reviewed. No pertinent family history. Last 1 Encounter LMP Dates: Date LMP 09/22/2008 09/13/2008 Consult orders: None CARMELA FRAGOSO MD Review of Systems Constitutional: Negative. Respiratory: Negative. Cardiovascular: Negative. No results found for this visit on 09/24/2008. Radiology orders: KNEE 4 OR MORE VIEWS KNEE 4 OR MORE VIEWS Final result not shown here.: KNEES 3 VIEWS (Results Pending) There were no vitals taken for this visit. Physical Exam Constitutional: She is oriented. She appears well-developed and well-nourished. She appears not diaphoretic. No distress. HENT: Head: Normocephalic. Right Ear: External ear normal. Left Ear: External ear normal. Eyes: Conjunctivae are normal. Pupils are equal, round, and reactive to light. Neck: Normal range of motion. Neck supple. Cardiovascular: Normal rate and regular rhythm. Pulmonary/Chest: Effort normal and breath sounds normal. Musculoskeletal: She exhibits no edema and no tenderness. Legs: Neurological: She is alert and oriented. Skin: Skin is warm and dry. She is not diaphoretic. Psychiatric: She has a normal mood and affect. Procedures MDM Course: 09/25/2008 4:55 PM Ashley juan - 09/24/2008 2327 EDT Pt presented to Emergency Dept after d/c from [facility]; pt req knee immobilizer, approved by Bradley Castillo knee immobilizer applied to right knee by Trang Oneal, TRISTIN ; CSMT's intact Rebeca Waddell - 09/24/2008 2100 EDT Down to xray for L knee 3 way. documented in this encounter Miscellaneous Notes Scanned Note-Null - Inpatient, MD Rosemarie - 11/01/200817 EDT canned Note-Null - Inpatient, MD Rosemarie - 11/01/20088 EDT documented in this encounter Plan of Treatment Not on filedocumented as of this encounter Procedures Procedure Name Priority Date/Time Associated Diagnosis Comme nts KNEE 4 OR MORE 09/24/2008 21:08 Results f or this VIEWS EDT procedure are i n the results section. documented in this encounter Results KNEE 4 OR MORE VIEWS (09/24/2008 21:08 EDT) Anatomical Region Laterality Modality Other Specimen Narrative [facility] - 09/25/2008 8:17 EDT KNEE 4 OR MORE VIEWS ??Sep 24, 2008 9:08 :00 PM Signs and Symptoms: ??KNEE PAIN Comparisons: None. Findings: 4 views of the right knee were obtained and show normal appearing bones. There is no joint effus ion. The soft tissues are within normal limits. Impression: No fracture identified. I have personally reviewed the images an d the above interpretation and agree with the findings. Procedure Note Aishwarya Carroll MD / Aishwarya Carroll MD / Aishwarya Carroll MD - 09/25/2008 KNEE 4 OR MORE VIEWS Sep 24, 2008 9:08:0 0 PM Signs and Symptoms: KNEE PAIN Comparisons: None. Findings: 4 views of the right knee were obtained and show normal appearing bones. There is no joint effus ion. The soft tissues are within normal limits. Impression: No fracture identified. I have personally reviewed the images an d the above interpretation and agree with the findings. Performing Organization Address City/State/ZIP Code Phon e Number [facility] documented in this encounter Visit Diagnoses Diagnosis Pes anserinus tendinitis Pes anserinus tendinitis or bursitis Medial meniscus tear Tear of medial cartilage or meniscus of knee, current documented in this encounter Historical Medications This list may reflect changes made after this encounter. Medication Sig Dispensed Refills Start Date End Date Etonogestrel (IMPLANON) by Subdermal route. 0 01/22/2010 68 mg Impl added in this encounter Orders Nursing Count Last Ordered Date First Ordered Date APPLY EARLINE WRAP 1 09/24/2008 documented in this encounter Care Teams Tents Assembler Relationship Specialty Start Date End Date Carmela Fragoso MD PCP - General 07/30/08 08/13/[address] [place] [phone] documented as of this encounter
--- OUTSIDE RECORDS SUMMARY | 2021-10-28 15:14 | XMS_ITS | Encounter Summary ---
:[address] [facility] Address [address] [place] [address] Care Team Providers Name Role Phone Carmela Sanchez MD Primary Care Provider Encounter Details Date Type Department Care Team Description 03/12/2009 Hospital Encounter [facility] - Carmela Sanchez MD [address] [phone] (Wo rk) Social History Tobacco Use Types [...] mcg/Actuation directed as needed for inhaler Wheezing. Etonogestrel (IMPLANON) 68 mg by Subdermal 0 09/0703/07/2010 68 mg ImplIndications: route once. contraception Indications: CONTRACEPTION Etonogestrel (IMPLANON) by Subdermal route. 0 01/22/2010 68 mg Impl omeprazole (PRILOSEC) Take 20 mg by mouth 0 11/01/2009 10 mg capsule daily. documented as of this encounter Discharge Disposition Disposition Code Departure Means Destination Home or Self Assisted documented in this encounter Plan of Treatment Not on filedocumented as of this encounter Procedures Procedure Name Priority Date/Time Associated Diagnosis Comme nts BACTERIAL CULTURE, Routine 03/22/2009 17:07 Resul ts for this URINE EST procedure are i n the results section. documented in this encounter Results BACTERIAL CULTURE, URINE (03/22/2009 17:07 EST) Specimen Description Urine [facility] Result Greater than 100,000 CFU/ml [facility] Report Status Final [facility] 03/24/2009 LAB Specimen Urine (substance) Organism Antibiotic Method Susceptibility Greater than 100,000 Ampicillin SUSCEPTIBILITY (RIDGE) <=2 Marcus sceptible cfu/ml escherichia coli Greater than 100,000 Cefazolin SUSCEPTIBILITY (RIDGE) <=4 Marcus sceptible cfu/ml escherichia coli Greater than 100,000 Gentamicin SUSCEPTIBILITY (RIDGE) <=1 Marcus sceptible cfu/ml escherichia coli Greater than 100,000 Trimethoprim-Sulfamethox SUSCEPTIBILITY (SD C) <=20 Susceptible cfu/ml escherichia azole coli Greater than 100,000 Nitrofurantoin SUSCEPTIBILITY (RIDGE) <=16 S usceptible cfu/ml escherichia coli Greater than 100,000 Tobramycin SUSCEPTIBILITY (RIDGE) <=1 Marcus sceptible cfu/ml escherichia coli Greater than 100,000 Amikacin SUSCEPTIBILITY (RIDGE) <=2 Marcus sceptible cfu/ml escherichia coli Greater than 100,000 Ceftriaxone SUSCEPTIBILITY (RIDGE) <=1 Marcus sceptible cfu/ml escherichia coli Greater than 100,000 Ciprofloxacin SUSCEPTIBILITY (RIDGE) <=0.25 Susceptible cfu/ml escherichia coli Greater than 100,000 Piperacillin Tazobactam SUSCEPTIBILITY (RIDGE ) <=4 Susceptible cfu/ml escherichia coli Greater than 100,000 Meropenem SUSCEPTIBILITY (RIDGE) <=0.25 Susceptible cfu/ml escherichia coli Performing Organization Address City/State/ZIP Code Phon e Number [facility] [address] [place] [address] SERVICES [facility] [address] [place] [address] documented in this encounter Visit Diagnoses Not on filedocumented in this encounter Care Teams Secondary History Teacher Relationship Specialty Start Date End Date Carmela Sanchez MD PCP - General 07/30/08 08/13/[address] [place] [phone] documented as of this encounter
--- OUTSIDE RECORDS SUMMARY | 2021-10-28 15:14 | XMS_ITS | Encounter Summary ---
:1990 Author Organization [facility] Address [address] [place] [address] Care Team Providers Name Role Phone Carmela Sanchez MD Primary Care Provider Encounter Details Date Type Department Care Team Description 09/22/2008 Hospital Encounter [facility] - Carmela Sanchez MD [address] [phone] (Wo rk) Social History Tobacco Use Types [...] mg ImplIndications: route once. contraception Indications: CONTRACEPTION metoclopramide (REGLAN) Take 1 Tab by mouth 4 10 0 0 09/22/2008 02/26/2009 10 mg tablet times daily. omeprazole (PRILOSEC) Take 20 mg by mouth 0 11/01/2009 10 mg capsule daily. trazodone (DESYREL) 50 Take 100 mg by mouth 0 02/26/2009 mg tablet at bedtime. documented as of this encounter Discharge Disposition Disposition Code Departure Means Destination Home or Self Custodial documented in this encounter Plan of Treatment Not on filedocumented as of this encounter Procedures Procedure Name Priority Date/Time Associated Comments Diagnosis HELICOBACTER PYLORI Routine 02/23/2009 14:15 Resu lts for this IGG ANTIBODY EST procedure are i n the results section. COMPLETE BLOOD COUNT Routine 02/23/2009 14:15 Res ults for this AND DIFFERENTIAL EST procedure a re in the results section. LIPASE Routine 02/23/2009 14:15 Results for this EST procedure are i n the results section. HEPATIC FUNCTION Routine 02/23/2009 14:15 Results for this PANEL (ALB,ALK EST procedure are in PHOS,ALT,AST,DBIL,TOT the re sults JOSÉ MIGUEL,TOT PROT) section. BASIC METABOLIC PANEL Routine 02/23/2009 14:15 Re sults for this (BMP) EST procedure are i n the results section. QUANT BETA HCG, Routine 09/22/2008 14:54 Results for this EDT procedure are i n the results section. documented in this encounter Results LIVER FUNCTION TESTS (02/23/2009 14:15 EST) Pathologist Sig [facility] Albumin 4.2 3.4 - 4.9 g/dl [facility] Total Protein 6.8 6.5 - 8.3 g/dl [facility] Alkaline Phosphatase 102 38 - 126 U/L [facility] ALT 30 9 - 52 U/L [facility] AST 23 15 - 46 U/L [facility] Unconjugated Bilirubin 0.2 0.1 - 1.1 mg/dl [facility] Conjugated Bilirubin 0.0 0.0 - 0.3 mg/dl [facility] LA B Bilirubin, Total <0.5 0.2 - 1.3 mg/dl [facility] Specimen Blood specimen (specimen) Performing Organization Address City/State/ZIP Code Phon e Number [facility] [address] [place] [address] SERVICES [facility] [address] [place] [address] LIPASE (02/23/2009 14:15 EST) Pathologist Sig nature Lipase 54 0 - 250 U/L [facility] Specimen Blood specimen (specimen) Performing Organization Address City/[facility]/ZIP Code Phon e Number [facility] [address] [place] [address] SERVICES [facility] [address] [place] [phone] HEMAGRAM AND DIFFERENTIAL (02/23/2009 14:15 EST) Pathologist Sig nature WBC 8.98 4.0 - 12.4 K/cmm [facility] RBC 4.61 3.86 - 5.04 M/cmm [facility] Hemoglobin 14.8 11.6 - 15.2 gm/dl [facility] HCT 42.3 34.9 - 44.4 % [facility] MCV 92 81 - 98 fl [facility] MCH 32.0 26.7 - 33.3 pg [facility] MCHC 34.9 32.1 - 35.9 gm/dl [facility] PLT 220 141 - 320 K/cmm [facility] RDW-CV 12.7 11.7 - 14.6 % [facility] Neutrophils 64.7 45.5 - 79.7 % [facility] Lymphocytes 27.6 15.0 - 46.8 % [facility] Monocytes 5.3 1.8 - 12.0 % [facility] Eosinophils 2.0 0.6 - 6.9 % [facility] Basophils 0.4 0.2 - 1.4 % [facility] ABS Neutrophils 5.81 2.20 - 8.85 K/cmm [facility] ABS Lymphs 2.47 1.09 - 3.30 K/cmm [facility] ABS Monocytes 0.48 0.1 - 0.8 K/cmm [facility] ABS Eosinophils 0.18 0.03 - 0.61 K/cmm [facility] ABS Basophils 0.04 0.01 - 0.11 K/cmm [facility] Type of Diff: Automated [facility] Specimen Blood specimen (specimen) Performing Organization Address City/[facility]/ZIP Code Phon e Number [facility] [address] [place] [phone] SERVICES [facility] [address] [place] [address] HELICOBACTER PYLORI IGG ANTIBODY (02/23/2009 14:15 EST) Pathologist Sig nature H Pylori IgG <0.4 U/mL [facility] Comment: Interpretation: ??Negative Negative is <0.9 U/mL Assayed utilizing the DPC Immulite 2500. Values may vary with other methods. Specimen Blood specimen (specimen) Performing Organization Address [facility] Phon e Number [facility] [address] [place] [address] SERVICES [facility] [address] [place] [address] (ABNORMAL) BASIC METABOLIC PANEL (02/23/2009 14:15 EST) Pathologist Sig nature Sodium 141 136 - 145 mEq/L [facility] Potassium 4.6 3.5 - 5.0 mEq/L [facility] Chloride 105 96 - 110 mEq/L [facility] CO2 27 24 - 32 mEq/L [facility] BUN 8 (L) 10 - 26 mg/dl [facility] Creatinine 0.66 (L) 0.7 - 1.5 mg/dl [facility] GFR, Calculated >60 ml/min/1.73m2 [facility] Calcium 9.4 8.5 - 10.5 mg/dl [facility] Calculated Calcium 9.6 8.5 - 10.5 mg/dl [facility] Glucose, Serum 96 70 - 100 mg/dl [facility] Fasting? No [facility] Specimen Blood specimen (specimen) Performing Organization Address [facility] Phon e Number [facility] [address] [place] [address] SERVICES [facility] [address] [place] [address] HCG (09/22/2008 14:54 EDT) Pathologist Sig nature HCG <4 <4 mIU/ml [facility] Comment: Reference Range: Positive = >10 Borderline = 4-10 recommend repeat. Negative = <4 Specimen Blood specimen (specimen) Performing Organization Address [facility]/ZIP [facility] Phon e Number [facility] [address] [place] [address] SERVICES [facility] [address] [place] [address] documented in this encounter Visit Diagnoses Not on filedocumented in this encounter Care Teams Commercial Diver Relationship Specialty Start Date End Date Carmela Sanchez MD PCP - General 07/30/08 08/13/[address] [place] [phone] documented as of this encounter
--- OUTSIDE RECORDS SUMMARY | 2021-10-28 15:14 | XMS_ITS | Encounter Summary ---
:1990 Author Organization [facility] Address [address] [place] [address] Care Team Providers Name Role Phone Unavailable Primary Care Provider Unavailable Encounter Details Date Type Department Care Team Description 07/20/2008 Hospital Encounter [facility]- Sekou Prajapati MD [address] [place] [phone] [facility] Maria De Jesus Kearney PA-C [address] [place] [phone] [address] [place], [place] [phone] Social History Tobacco Use Types Packs/Day Years [...] EST documented as of this encounter Discharge Disposition Disposition Code Departure Means Destination Auto Discharge documented in this encounter Plan of Treatment Not on filedocumented as of this encounter Visit Diagnoses Not on filedocumented in this encounter
--- OUTSIDE RECORDS SUMMARY | 2021-10-28 15:14 | XMS_ITS | Encounter Summary ---
:1991 Author Organization [facility] Address [address] [place] [address] Care Team Providers Name Role Phone Carmela Sanchez MD Primary Care Provider Encounter Details Date Type Department Care Team Description 01/21/2009 Abstract [facility] Family Carmela Sanchez MD [place] [id number] [address] [phone] [place] [address] [phone] Social History Tobacco Use Types Packs/Day Years [...] on filedocumented in this encounter Care Teams Design Editor Relationship Specialty Start Date End Date Carmela Sanchez MD PCP - General 07/30/08 08/13/11 [address] [place] [phone] documented as of this encounter
--- OUTSIDE RECORDS SUMMARY | 2021-10-28 15:14 | XMS_ITS | Encounter Summary ---
:1990 Author Organization [facility] Address [address] [place] [address] Care Team Providers Name Role Phone Carmela Sanchez MD Primary Care Provider Encounter Details Date Type Department Care Team Description 01/19/2009 Abstract [facility] Family Carmela Sanchez MD [address] [phone] [place] [id number] [phone] Social History Tobacco Use Types Packs/Day Years [...] mcg/Actuation inhaler directed as needed for Wheezing. added in this encounter Care Teams Radiator Repairer Relationship Specialty Start Date End Date Carmela Sanchez MD PCP - General 07/30/08 08/13/[address] [place] [phone] documented as of this encounter
--- OUTSIDE RECORDS SUMMARY | 2021-10-28 15:14 | XMS_ITS | Encounter Summary ---
:1990 Author Organization [facility] Address [address] [place] [address] Care Team Providers Name Role Phone Carmela Sanchez MD Primary Care Provider Tricia Otero Primary Care Provider Unavailable None, Provider Primary Care Provider Unavailable Lyric Robbins MD Primary Care Provider Trell Pritchard MD Primary Care Provider Yvonne Peralta MD Primary Care Provider Ralph Bowman MD Primary Care Provider Unavailable Kristen Fontaine MD Primary Care Provider None, Provider Primary Care Provider Unavailable Gallo Small HOTBED LEVER OPERATOR Primary Care Provider Michelle Singer HOTBED LEVER OPERATOR Primary Care Provider Gallo Small HOTBED LEVER OPERATOR Primary Care Provider Puneet Borrego RPA Primary Care Provider [phone] Encounter Details Date Type Department Care Team Description 05/26/2008 Hospital Encounter [facility] - Aleta Spring APRN Maple conversion [address] [place] [phone] (Wo rk) Social History Tobacco Use Types [...] / COVID-19? documented as of this encounter Plan of Treatment Not on filedocumented as of this encounter Procedures Procedure Name Priority Date/Time Associated Diagnosis Comme nts GROUP A STREP Routine 05/26/2008 10:48 Results fo r this CULTURE EST procedure are i n the results section. documented in this encounter Results CULTURE FOR GROUP A BETA STREPTOCOCCUS (05/26/2008 10:48 EST) Specimen Throat [facility] Description LAB Result NO GROUP A BETA [facility] STREPTOCOCCI LAB ISOLATED Report Status Final [facility] 05/28/2008 LAB Specimen Performing Organization Address City/State/ZIP Code Phon e Number [facility] [address] [place] [address] SERVICES [facility] [address] [place] [address] documented in this encounter Visit Diagnoses Not on filedocumented in this encounter Additional Health Concerns Infection Onset Date Last Indicated Resolved Time R/O COVID-19 10/30/2019 10/30/2019 10/30/2019 15:36 EDT documented as of this encounter Care Teams Agriculture Extension Specialist Relationship Specialty Start Date End Date Carmela Sanchez MD PCP - General 07/30/08 08/13/[address] [place] [phone] Tricia Otero PA PCP - General 08/14/11 11/28/11 None, Provider PCP - General 11/29/11 09/30/12 Lyric Robbins MD PCP - General 10/01/12 12/18/13 [address] [facility], [address] [facility], [place] [address] Trell Pritchard MD PCP - General 12/19/13 10/26/14 Yvonne Peralta MD PCP - General 10/27/14 11/26/14 Ralph Bowman PCP - General 11/27/14 Kristen Mcguire MD PCP - General 02/08/18 11/21/18 None, Provider PCP - General 11/22/18 11/24/18 Gallo Small, NIRANJAN PCP - General 11/25/18 12/02/18 Michelle Singer NP PCP - General 12/03/18 07/01/19 Gallo Small NP PCP - General Family Medicine - Primary 07/02/19 07/11/21 Care Puneet Borrego, [facility] PCP - General Family Medicine - Primary 07/12/[address] [place] [address] documented as of this encounter
--- OUTSIDE RECORDS SUMMARY | 2021-10-28 15:14 | XMS_ITS | Encounter Summary ---
:1991 Author Organization [facility] Address [address] [place] [address] Care Team Providers Name Role Phone Carmela Sanchez MD Primary Care Provider Encounter Details Date Type Department Care Team Description 07/20/2008 Before [facility] Sekou Prajapati Converted Visit Urgent Care Infusion MD [facility] - [address] [phone] (Wo rk) Social History Tobacco Use Types [...] Priority Date/Time Associated Comments Diagnosis CHLAMYDIA/N. Routine 07/20/2008 18:20 Results for this GONORRHOEAE AMPLIFIED EDT proced ure are in RNA the results section. documented in this encounter Results CHLAMYDIA/GC AMPLIFIED (07/20/2008 18:20 EDT) Specimen Cervix [facility] Description Performed at [facility] [place], [place] LAB Result No Chlamydia [facility] trachomatis DNA LAB detected by certified performance technologist mediated amplification. Result No Neisseria [facility] gonorrhoeae DNA LAB detected by certified performance technologist mediated amplification. Specimen Performing Organization Address City/State/ZIP Code Phon e Number [facility] [address] [place] [address] SERVICES [facility] [address] [place] [address] documented in this encounter Visit Diagnoses Not on filedocumented in this encounter Care Teams Assistant Golf Coach Relationship Specialty Start Date End Date Carmela Sanchez MD PCP - General 07/30/08 08/13/[address] [place] [phone] documented as of this encounter
--- OUTSIDE RECORDS SUMMARY | 2021-10-28 15:14 | XMS_ITS | Encounter Summary ---
:1990 Author Organization [facility] Address [address] [place] [address] Care Team Providers Name Role Phone Carmela Sanchez MD Primary Care Provider Encounter Details Date Type Department Care Team Description 04/11/2008 Office Visit [facility] - Andrez Florez Maple conversion PA-C [address] [facility] [address], [place] [id number] [place] [address] Social History Tobacco Use Types Packs/Day Years [...] documented as of this encounter Progress Notes Andrez Florez - 05/21/2009 1523 EST Department - Physician Summary Registration Date/Time: 04/11/2008 11:43 Time Seen: 12:03. Arrived- By private vehicle. Historian- patient. HISTORY OF PRESENT ILLNESS Chief complaint- NAUSEA. This started 2 days ago and is still present. No loss of appetite, vomitingor diarrhea. (Pt recently seen in ER for dental pain, started on Pen V. States after taking meds has had mild nausea. No vomiting, diarrhea or fevers.). The patient was seen recently in the emergency department. REVIEW OF SYSTEMS No constipation, black stools, hematemesis, difficulty with urination or pain with urination. No bloody stools, fever or chills. PAST HISTORY See nurses notes. Medications: The patient's medications have been reviewed. Allergies: The patient's allergies have been reviewed. ADDITIONAL NOTES The nursing notes have been reviewed. PHYSICAL EXAM Appearance: Alert. Oriented X3. Patient in mild distress. Vital Signs: Have been reviewed. Respiratory: No respiratory distress. Abdomen: Abdomen soft and nontender. Skin: Normal skin color and turgor. Skin warm and dry. No rash. Extremities: Extremities exhibit normal ROM. Neuro: Oriented X 3. PROGRESS AND PROCEDURES ED Attending on duty and available for supervision: Luz Elena Ventura. Disposition: Condition: good. Discharged home. Discharged home in good condition. CLINICAL IMPRESSION Drug reaction with GI intolerance. INSTRUCTIONS Drink plenty of fluids. Your Current Medications: Your current home medications have been reviewed by the EmergencyDepartment physician patient support assistant. No changes in your current home medications are recommended at this time. Continue taking the following medications: (penicillin 500mg po q6hrs. Prescription Medications: Reglan 10 mg tablets: take 1 orally every 6 hours as needed for nausea. Dispense fifteen (15). No refills. Generic substitute OK. Follow-up: [facility], , [address] [facility], [facility]. Follow up as needed. Understanding of the discharge instructions verbalized by patient. (Electronically signed by Anika Osei 04/11/2008 14:22) Department - Nursing Summary Registration Date/Time: 04/11/2008 11:43 TRIAGE Initial Assessment Triage time 11:44. Acuity: LEVEL 4. BP: 119 / 76. HR: 78. RR: 14. Temp: 35.5 C (tympanic). --1146 Megan Pitts R.N.. Medications (penicillin 500mg po q6hrs). --1146 Megan Pitts R.N.. Allergies (sulfa - throat closes). --1146 Megan Pitts R.N.. History Chief Complaint: (seen ED 2 days ago for dental pain and started on penicillin, since then pt statesnausea). Pain level now: 0/10. PAST HX: Negative. SOCIAL HX: Cigarette smoker: less than 1 pack per day. No alcohol use. No report of abuse. Arrived by private vehicle and accompanied by friend. Historian: patient. --1146 Megan Pitts R.N. PAST HX: Last normal menstrual period- about 5 days ago. --1146 Megan Pitts R.N.. Interventions To room. --1146 Megan Pitts R.N.. PHYSICAL ASSESSMENT Ambulatory to room. Patient gowned. --1150 Darrell Cash. NURSING PROGRESS NOTES Patient identifiers checked. Call light placed in reach. Side rails up x 1. Bed placed in lowest position. Brakes of bed on. --1150 Erum CashMTru REGLAN 10 mg PO. . --1206 Esperanza Bear L.P.N. Urine test negative. --1214 Esperanza Bear L.P.N.. DISPOSITION / DISCHARGE Discharge instructions reviewed with the patient. Reviewed medication. Patient verbalized understanding. Written instructions provided in Faroese. The patient was discharged home and accompanied by geospatial technician. The patient left the Emergency Department ambulatory and via private vehicle. Hand Icer driving. --1242 Esperanza Bear L.P.N.. Darrell Lemon R.N., L.P.N. Locked/Released at 04/11/2008 12:43 by Esperanza Bear L.P.N. documented in this encounter Plan of Treatment Not on filedocumented as of this encounter Visit Diagnoses Not on filedocumented in this encounter Care Teams Table Lever Operator Relationship Specialty Start Date End Date Carmela Sanchez MD PCP - General 07/30/08 08/13/[address] [place] [address] [phone] documented as of this encounter
--- OUTSIDE RECORDS SUMMARY | 2021-10-28 15:14 | XMS_ITS | Encounter Summary ---
:1990 Author Organization Health system Address [address] [place] [address] Care Team Providers Name Role Phone Unavailable Primary Care Provider Unavailable Encounter Details Date Type Department Care Team Description 04/09/2008 Hospital Encounter [facility], Emergency Department - Jeff, [address] [place] [address] [place], [place] [address] Social History Tobacco Use Types Packs/Day Years [...]
--- OUTSIDE RECORDS SUMMARY | 2021-10-28 15:14 | XMS_ITS | Encounter Summary ---
:1990 Author Organization [facility] Address [address] [place] [address] Care Team Providers Name Role Phone Carmela Fragoso MD Primary Care Provider Reason for Visit Reason Comments Joint Swelling knee injury 1 month ago. Roberta cardoso is swollen and sore today. Encounter Details Date Type Department Care Team Description 09/28/2008 - Emergency [facility] Ellie Reece MD [address] [place] [address], [address] [place] [address] Knee Pain 09/29/2008 Emergency Department - Emergency, MD Jeff [address] [address] Social History Tobacco Use Types [...] Sign Reading Time Taken Comments Blood Pressure 131/97 09/28/2008 2351 EDT Pulse 99 09/28/2008 2351 EDT Temperature 36.8 ??C (98.3 ??F) 09/28/2008 2351 EDT Respiratory Rate 17 09/28/2008 2351 EDT Oxygen Saturation 99% 09/28/2008 2351 EDT Inhaled Oxygen Concentration - - Weight 76.7 kg (169 lb) 09/28/2008 2351 EDT Height - - Body Mass Index - - documented in this encounter Discharge Instructions Ellie Barron MD - 09/29/2008 Ice 20 mins each hour, rest, Use knee immobilizer fulltime See your MD infollowup but please contact orthopedics and be seen in a weeks time You may work but avoid bending the knee AttachmentsThe following attachments cannot be sent through Care Everywhere.Knee Pain: After Your Visitdocumented in this encounter Medications [...] Home documented in this encounter ED Notes Ellie Reece MD - 09/29/2008 0136 EDT Chief Complaint Patient presents with ??? Joint Swelling knee injury 1 month ago. Knee is swollen and sore today. HPI Comments: I performed a history and exam of Renetta Bradley and discussed the case with the resident I reviewed this individual's note and I CONCUR with the documented findings and plan of care. 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 female presenting with joint swelling. The history is provided by the patient. Joint Swelling The current episode started more than 1 week ago. The problem occurs continuously. The problem has been gradually worsening. The problem is moderate. The symptoms are worsened by activity. Review of Systems Constitutional: Negative. HENT: Negative. Eyes: Negative. Respiratory: Negative. Cardiovascular: Negative. Gastrointestinal: Negative. Genitourinary: Negative. Musculoskeletal: Positive for gait problem. Joint swelling: knee is swollen after standing all day. Neurological: Negative. Psychiatric/Behavioral: Negative. Past Medical History Diagnosis Date ??? Migraine ??? Acid Reflux ??? 2008 ??? Asthma History reviewed. No pertinent past surgical history. Allergies Allergen Reactions ??? Sulfa (Sulfonamide Antibiotics) History Substance Use Topics ??? Tobacco Use: Yes -- 0.5 packs/day ??? Alcohol Use: No History reviewed. No pertinent family history. BP 131/97 Pulse 99 Temp(Src) 36.8 ??C (98.3 ??F) (Oral) Resp 17 Wt 76.658 kg (169 lb) [id number]% Physical Exam Constitutional: She is oriented. She appears well-developed and well-nourished. Pulmonary/Chest: Effort normal. Musculoskeletal: Pt had iced while waiting and elevated, scant joint effusion ,intact ligament exam, varus and valgus stress with symmetrical laxity to unaffected side, No crepitus, no joint line tenderness Neurological: She is alert and oriented. Skin: Skin is warm and dry. Radiology orders: None Procedures Consult orders: None ED Course: Iced and pt up and about out of splint, ran in ED on her tip toes over to my desk with good stability and no evidence of pain, she is asking for work note. MDM Number of Diagnoses and Management Options Knee Pain: new, no workup Risk of Complications, Morbidity, and/or Mortality Presenting problems: moderate Diagnostic procedures: minimal Management options: low Patient Progress Patient progress: stable Encounter Diagnoses Code Name Primary? Qualifier ??? 719.46J Knee Pain PCP: CARMELA FRAGOSO MD 09/29/2008 1:36 AM documented in this encounter Miscellaneous Notes Scanned Note-Null - Inpatient, MD Rosemarie - 09/30/2008 0812 EDT D Resident - Merlin Bender - 09/29/2008 0159 EDT Chief Complaint Patient presents with ??? Joint Swelling knee injury 1 month ago. Knee is swollen and sore today. HPI Comments: 1 month of right knee pain after jumping/twisting injury. Pt. Seen 4 days ago in [facility] with negative 4-view x-ray. 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 The history is provided by the patient. Review of Systems Skin: Negative for pallor. Past Medical History Diagnosis Date ??? Migraine ??? Acid Reflux ??? 2008 ??? Asthma History reviewed. No pertinent past surgical history. Allergies Allergen Reactions ??? Sulfa (Sulfonamide Antibiotics) History Substance Use Topics ??? Tobacco Use: Yes -- 0.5 packs/day ??? Alcohol Use: No History reviewed. No pertinent family history. BP 131/97 Pulse 99 Temp(Src) 36.8 ??C (98.3 ??F) (Oral) Resp 17 Wt 76.658 kg (169 lb) TaO010% Physical Exam Constitutional: She is oriented. She appears well-developed and well-nourished. HENT: Head: Normocephalic and atraumatic. Eyes: Extraocular motions are normal. Pupils are equal, round, and reactive to light. Neck: Normal range of motion. Cardiovascular: Normal rate, regular rhythm, normal heart [...] tenderness. Shehas no rebound and no guarding. Genitourinary: Guaiac negative stool. No discharge found. Musculoskeletal: Normal range of motion. She exhibits edema (right knee) and tenderness. Neurological: She is alert and oriented. Skin: Skin is warm and dry. No rash noted. No erythema. No pallor. Radiology orders: None Procedures Consult orders: None ED Course: Pt. Evaluated with Dr. Tres Reece. Pt. Provided ibuprofen, and RICE. Pt. Urged to follow up with her orthopedic physician and ice at work. Pt. Discharged. [facility] Encounter Diagnoses Code Name Primary? Qualifier ??? 719.46J Knee Pain PCP: CARMELA FRAGOSO MD 09/29/2008 1:59 AM documented in this encounter Plan of Treatment Not on filedocumented as of this encounter Visit Diagnoses Diagnosis Knee pain Pain in joint, lower leg documented in this encounter Administered Medications Inactive Administered Medications - up to 3 most recent administrations Medication Order MAR Action Action Date Dose Rate Site ibuprofen (MOTRIN) tablet 600 mg Given 09/29/2008 1:45 EDT 600 mg 600 mg, oral, NOW X1, 1 dose, On Sun09/29/08 at 0145, STAT documented in this encounter Active and Recently Administered Medications Times are shown in EDT. Scheduled Medication Order 09/27/2008 09/28/2008 09/29/2008 ibuprofen (MOTRIN) tablet 600 mg (COMPLETED) 0145 (Given - Provider: Kristen Adams RN) 600 mg, Oral, NOW X1, 1 dose, Sun09/29/08 at 0145 documented in this encounter Orders Medications Ordered That Might Not Have Count Last Ord ered Date First Ordered Date Been Administered ibuprofen (MOTRIN) tablet 600 mg 1 09/29/2008 documented in this encounter Care Teams Defensive Driving Instructor Relationship Specialty Start Date End Date Carmela Fragoso MD PCP - General 07/30/08 08/13/[address] [place] [address] [phone] documented as of this encounter
--- OUTSIDE RECORDS SUMMARY | 2021-10-28 15:14 | XMS_ITS | Encounter Summary ---
:1990 Author Organization [facility] Address [address] [place] [address] Care Team Providers Name Role Phone Carmela Sanchez MD Primary Care Provider Encounter Details Date Type Department Care Team Description 05/28/2008 Office Visit [facility] - Ellie Juan PA conversion [address] [facility] [address] [place] [address] [place], [place] [id number] [phone] Social History Tobacco Use Types Packs/Day Years [...] documented as of this encounter Progress Notes Ellie Ernst - 05/21/2009 1614 EST Department - Physician Summary Registration Date/Time: 05/28/2008 19:57 Time Seen: 22:47. Arrived- By private vehicle. Historian- patient. HISTORY OF PRESENT ILLNESS Chief Complaint: HEADACHE. This started yesterday. Is still present. It is described as similar to previous headaches and well localized. Located in the region of the left eye. No neck pain. Not located in the facial region. At its maximum, severity described as severe and 10 / 10. When seen in the E.D., severity described as severe and 10 / 10. Modifying factors: worsened by bright light; relieved by nothing. She has had photophobia, nausea and vomiting. No preceding symptoms, blurred vision, numbness or weakness. Patient has not had similar symptoms previously. Not recently seen/assessed. REVIEW OF SYSTEMS No fever, muscle aches, sinus pressure, ear pain or sore throat. No chest pain, difficulty breathing, cough or abdominal pain. PAST HISTORY History of occasional chronic migraine headaches. reflux. Medications: prilosec. Allergies: The patient's allergies have been reviewed. See nurses notes. SOCIAL HISTORY Nonsmoker. ADDITIONAL NOTES The nursing notes have been reviewed. PHYSICAL EXAM Appearance: Alert. No acute distress. Appears to be in pain. Vital Signs: Have been reviewed (BP: 134 / 69. HR: 76. RR: 16 regular (unlabored). Temp: 37.1 oral.). Eyes: Eyes normal inspection. ENT: Ears normal. Nose normal. Pharynx normal. Neck: Normal inspection. Respiratory: No respiratory distress. Back: Normal inspection. Skin: Normal skin color and turgor. Skin warm and dry. No rash. Extremities: Extremities exhibit normal ROM. No lower extremity edema. Neuro: Oriented X 3. Alert. Mood/affect normal. Speech normal. Normal gait. PROGRESS AND PROCEDURES E.D. Course: 10mg reglan IV, 30mg toradol IV. pt reports pain as 2/10, sleeping in room, ready for discharge. Patient/family counseled. ED Attending on duty and available forsupervision: Leena Mai. Disposition: Condition: good. Discharged home. CLINICAL IMPRESSION Migraine headache. INSTRUCTIONS Warnings: GENERAL WARNINGS: Return to the Emergency Department or contact your physician immediately if your condition worsens or changes unexpectedly, if not improving as expected, or if other problems arise. Your Current Medications: Your current home medications have been reviewed by the Emergency Department physician call center assistant. No changes in your current home medications are recommended at this time. OTC Medications: Acetaminophen (available over the counter): take according to label instructions. Motrin (available over the counter): take according to label instructions. Follow-up: Follow up with your doctor tomorrow if not better. Call for the next available appointment. Understanding of the discharge instructions verbalized by patient. (Electronically signed by CARMELA Pantoja 05/29/2008 5:38) Department - Nursing Summary Registration Date/Time: 05/28/2008 19:57 TRIAGE Initial Assessment Triage time 19:58 May 28 2008. Acuity: LEVEL 3. BP: 134 / 69. HR: 76. RR: 16 regular (unlabored). Temp: 37.1 oral. Alert. No acute distress. --1999 Brock Coats R.N.. Medications (prilosec otc). --1999 Brock Coats R.N.. Allergies (sulfa). --1999 Brock Coats R.N.. History Chief Complaint: HEADACHE. Onset (about 24 hours ago). Pain level now: 10/10. The patient has had nausea. SOCIAL HX: Cigarette smoker: less than 1 pack per day. No alcohol use. No report of abuse. Arrived by private vehicle. --1999 Brock Coats R.N.. NURSING PROGRESS NOTES (pt crying in WR after talking w/ parents and parent not consenting for treatment- registration looking into options for pt). --2041 Brock Coats R.N. (Spoke w/ pt; pt's father refusing to give consent for treatment, pt states father told her wait til morning and go see your primary care in the morning- apologized to pt but explained unable to see pt w/o legal consent for treatment). --2050 Brock Coats R.N. late entry -. (pt ambuatory to triage w/ steady gait, no facial assymetry, skin color wnl requestingtime to be seen). --2217 Brock Coats R.N. (Registration confirms that mother of pt had given consent to treat over the phone.). --2347 Abhishek Don REGLAN 10 mg diluted with NS slow IVP. IV patency established. IV site checked: no pain, redness, orswelling. IV flushed thoroughly pre- and post-medication administration. TORADOL 30 mg diluted with NS slow IVP. IV patency established. IV site checked: no pain, redness, or swelling. IV flushed thoroughly pre- and post-medication administration. . --0004 Sammy Don R.N.. IV / I&O Flowsheet IV Site #1. IV access: left antecubital space. IV started in ED with 20g angiocath using aseptic technique, with good blood return. Saline lock placed and flushed with 3 mL normal saline. IV fluids started: 1000 mL NS; rate = wide open. --2346 Sammy Don R.N.. DISPOSITION / DISCHARGE BP: 135 / 70. HR: 78. RR: 18. O2 saturation: 98 % room air. Condition at departure: improved and stable. Patient reports pain level on departure as 4/10. Fall risk assessment completed. Low fall risk potential. Discharge instructions reviewed with the patient. Reviewed warnings. Patient verbalized understanding. The patient was discharged home and accompanied by family. The patient left the EmergencyDepartment ambulatory and via private vehicle. Family member driving. --010 Sammy Don R.N.. Brock Don R.N. Locked/Released at 05/29/2008 1:02 by Sammy Don R.N. documented in this encounter Plan of Treatment Not on filedocumented as of this encounter Visit Diagnoses Not on filedocumented in this encounter Care Teams Rn Training Relationship Specialty Start Date End Date Carmela Sanchez MD PCP - General 07/30/08 08/13/[address] [place] [phone] documented as of this encounter
--- OUTSIDE RECORDS SUMMARY | 2021-10-28 15:14 | XMS_ITS | Encounter Summary ---
:1991 Author Organization [facility] Address [address] [place] [address] Care Team Providers Name Role Phone Carmela Sanchez MD Primary Care Provider Encounter Details Date Type Department Care Team Description 07/20/2008 Before [facility] Sekou Prajapati Converted Visit Urgent Care Infusion MD [facility] - [address] [phone] (Wo rk) Social History Tobacco Use Types [...] Priority Date/Time Associated Diagnosis Comme nts TEST, Routine 07/20/2008 17:26 Results for this URINE EDT procedure are i n the results section. documented in this encounter Results TEST, URINE (07/20/2008 17:26 EDT) Pathologist Sig nature Result Neg [facility] Performed at [place], [place] Specimen Performing Organization Address City/State/ZIP Code Phon e Number [facility] [address] [place] [address] SERVICES [facility] [address] [place] [address] documented in this encounter Visit Diagnoses Not on filedocumented in this encounter Care Teams Sales Store Checker Relationship Specialty Start Date End Date Carmela Sanchez MD PCP - General 07/30/08 08/13/11 [address] [place] [phone] documented as of this encounter
--- OUTSIDE RECORDS SUMMARY | 2021-10-28 15:14 | XMS_ITS | Encounter Summary ---
:1990 Author Organization [facility] Address [address] [place] [address] Care Team Providers Name Role Phone Carmela Fragoso MD Primary Care Provider Reason for Visit Reason Comments Chest Pain states left sided cp, with s yncopal episodes, sob Encounter Details Date Type Department Care Team Description 11/13/2008 Emergency [facility] Marzena Tellez, [facility]AA[facility] [address] [place] [address] [place] [phone] Atypical Chest Pain Emergency Department - Emergency, MD Jeff [place] [address] [place] [address] Social History Tobacco Use Types Packs/Day [...] Sign Reading Time Taken Comments Blood Pressure 125/75 11/13/20082051 EDT Pulse 79 11/13/20082051 EDT Temperature 36.3 ??C (97.3 ??F) 11/13/20082051 EDT Respiratory Rate 16 11/13/20082051 EDT Oxygen Saturation 99% 11/13/20082051 EDT Inhaled Oxygen Concentration - - Weight - - Height - - Body Mass Index - - documented in this encounter Discharge Instructions InstructionsAl Tellez - 11/13/2008 Return here with any worsening symptoms documented in this encounter Medications at Time of Discharge Medication Sig Dispensed Refills Start Date End Date Etonogestrel (IMPLANON) 68 mg by Subdermal 0 09/0703/07/2010 68 mg ImplIndications: route once. contraception Indications: CONTRACEPTION Etonogestrel (IMPLANON) by Subdermal route. 0 01/22/2010 68 mg Impl fluoxetine (PROZAC) 10 Take 10 mg by mouth 0 02/26/2009 mg capsule daily. unk dose ibuprofen (MOTRIN) 600 Take 1 Tab by mouth 30 0 09/0702/26/2009 mg tablet every 6 hours as needed for Pain. metoclopramide (REGLAN) Take 1 Tab by mouth 4 10 0 0 09/22/2008 02/26/2009 10 mg tablet times daily. naproxen (NAPROSYN) 500 Take 1 Tab by mouth 2 20 0 0 11/13/2008 02/26/2009 mg tablet times daily. omeprazole (PRILOSEC) Take 20 mg by mouth 0 11/01/2009 10 mg capsule daily. promethazine Take 1 Tab by mouth 15 0 11/13/2008 (PHENERGAN) 25 mg every 6 hours as tablet needed for Nausea. trazodone (DESYREL) 50 Take 100 mg by mouth 0 02/26/2009 mg tablet at bedtime. documented as of this encounter Ordered Prescriptions Prescription Sig Dispensed Refills Start Date End Date promethazine (PHENERGAN) Take 1 Tab by mouth 15 0 02/26/2009 25 mg tablet every 6 hours as needed for Nausea. naproxen (NAPROSYN) 500 mg Take 1 Tab by mouth 20 0 11/13/2008 02/26/2009 tablet 2 times daily. documented in this encounter Discharge Disposition Disposition Code Departure Means Destination Home or Self Mcfp documented in this encounter ED Notes Al Tellez - 11/13/2008 2303 EDT DOS: 11/13/2008 Chief Complaint Patient presents with ??? Chest Pain states left sided cp, with syncopal episodes, sob Patient is a 18 y.o. female presenting with chest pain. Chest Pain Pertinent negatives include no fever, no abdominal pain, no headaches, no back pain and no shortnessof breath. Review of Systems Constitutional: Negative for fever and chills. HENT: Negative for neck stiffness. Eyes: Negative for visual disturbance. Respiratory: Negative for shortness of breath. Cardiovascular: Positive [...] History reviewed. No pertinent family history. BP 125/75 Pulse 79 Temp 36.3 ??C (97.3 ??F) Resp 16 SpO2 99% LMP 09/29/2008 Physical Exam Nursing note and vitals reviewed. [...] No tenderness. Musculoskeletal: Normal range of motion. Neurological: She is alert. She has normal strength. No sensory deficit. Skin: No rash noted. Psychiatric: She has a normal mood and affect. Radiology orders: CHEST PA AND LATERAL CHEST PA AND LATERAL (Results Pending) Procedures Consult orders: None ED Course: CXR clear, Ddimer neg, pt appears well, reassured. Will try NSAID for possible musculoskeletal issuewith chest muscle, advised PCP followup in 2 days MDM Number of Diagnoses and Management Options Amount and/or Complexity of Data Reviewed Clinical lab tests: reviewed and ordered Tests in the medicine section of CPT??: ordered and reviewed Discussion of test results with the performing providers: no Decide to obtain previous medical records or to obtain history from someone other than the patient: no Obtain history from someone other than the patient: no Review and summarize past medical records: no Discuss the patient with other providers: no Independent visualization of images, tracings, or specimens: yes No diagnosis found. PCP: CARMELA FRAGOSO MD 11/13/2008 11:03 PM Ralph vieyra - 11/13/2008 2219 EDT Blood drawn via saline lock per protocol, blue tube(s) sent to lab per order. documented in this encounter Miscellaneous Notes Scanned Note-Null - InpatientPhysician MD - 12/14/2008 1256 EDT canned Note-Null - Physician Longo MD - 11/15/2008 1436 EDT canned Note-Null - InpatientPhysician MD - 11/15/2008 0813 EDT documented in this encounter Plan of Treatment Not on filedocumented as of this encounter Procedures Procedure Name Priority Date/Time Associated Diagnosis Comme nts CHEST PA AND STAT 11/13/2008 22:08 Results for this LATERAL EDT procedure are i n the results section. D-DIMER STAT 11/13/2008 21:50 Results for this EDT procedure are i n the results section. documented in this encounter Results CHEST PA AND LATERAL (11/13/2008 22:08 EDT) Anatomical Region Laterality Modality Other Specimen Narrative [facility] - 11/14/2008 14:14 EDT CHEST PA AND LAT ?? Nov 13, 2008 10:08:00 PM History: ??CHEST PAIN Comparisons: none Findings: The lungs are clear and there is no evid ence of pleural disease. The cardiac silhouette and pulmonary vascula rity are normal. The skeleton is unremarkable for age. No pneumothorax. No pneumomediastinum. N o displaced rib fracture. Impression: 1. Normal chest 2. The cause of the patient's chest pain is not determined on this examination. I have personally reviewed the images an d the above interpretation and agree with the findings. Procedure Note Deandre Magana MD / Vicente Magana MD / Deandre Magana MD - 11/14/2008 CHEST PA AND LAT Nov 13, 2008 10:08:00 PM History: CHEST PAIN Comparisons: none Findings: The lungs are clear and there is no evid ence of pleural disease. The cardiac silhouette and pulmonary vascula rity are normal. The skeleton is unremarkable for age. No pneumothorax. No pneumomediastinum. N o displaced rib fracture. Impression: 1. Normal chest 2. The cause of the patient's chest pain is not determined on this examination. I have personally reviewed the images an d the above interpretation and agree with the findings. Performing Organization Address City/State/ZIP Code Phon e Number [facility] D-DIMER (11/13/2008 21:50 EDT) D-Dimer <0.22 <0.50 ug FEU/ml [facility] Comment: The presence of rheumatoid f actor (RF) at a level greater than 50IU/ml may ?lead to an over-estimation of the D-Dim er level. ??It is therefore ?recommended that the presence of RF in the test samples be co nfirmed by an ?appropriate RF procedure for cases of unexplained D-Dimer positive results. CUTOFF VALUE FOR THE EXCLUSION OF DVT and PE: 0.5 ug F EU/mL Specimen Blood specimen (specimen) Performing Organization Address City/State/ZIP Code Phon e Number [facility] [address] [place] [address] SERVICES [facility] [address] [place] [address] documented in this encounter Visit Diagnoses Diagnosis Atypical chest pain Other chest pain documented in this encounter Administered Medications Inactive Administered Medications - up to 3 most recent administrations Medication Order MAR Action Action Date Dose Rate Site sodium chloride 0.9 % 1,000 Given 11/13/2008 22:15 EDT 1,000 mL Right Arm mL BOLUS 1,000 mL, intravenous, ONCE, 1 dose, Starting on Sun11/13/08 at 2215, Until Sun11/13/08 at 2215, STAT documented in this encounter Historical Medications This list may reflect changes made after this encounter. Medication Sig Dispensed Refills Start Date End Date fluoxetine (PROZAC) 10 mg Take 10 mg by mouth 0 02/26/2009 capsule daily. unk dose added in this encounter Active and Recently Administered Medications Times are shown in EDT. Scheduled Medication Order 11/11/2008 11/12/2008 11/13/2008 sodium chloride 0.9 % 1,000 mL BOLUS (COMPLETED) 2215 (Given - Provider: Ralph Lott) 1,000 mL, Intravenous, ONCE, 1 dose, First dose on Sun11/13/08 at 2215 documented in this encounter Care Teams Social Contact Worker Relationship Specialty Start Date End Date Carmela Fragoso MD PCP - General 07/30/08 08/13/[address] [place] [phone] documented as of this encounter
--- OUTSIDE RECORDS SUMMARY | 2021-10-28 15:14 | XMS_ITS | Encounter Summary ---
:1990 Author Organization [facility] Address [address] [place] [address] Care Team Providers Name Role Phone Carmela Sanchez MD Primary Care Provider Encounter Details Date Type Department Care Team Description 03/12/2009 Orders Only [facility] Family Carmela Sanchez MD [address] [phone] (Wo rk) Social History Tobacco Use [...] Date/Time Associated Diagnosis Comme nts RAD US ABDOMEN ONE 03/12/2009 9:04 EST Re sults for this ORGAN/QUADRANT procedure are in the results section. documented in this encounter Results RAD US ABDOMEN ONE ORGAN/QUADRANT (03/12/2009 9:04 EST) Anatomical Region Laterality Modality Other Specimen Narrative [facility] - 03/12/2009 11:10 EST US ABD ONE ORG/QUAD ??Mar 12, 2009 09:04 :00 AM Signs and Symptoms/Comments: ??Episodes of middle abdominal pain. Random timing. Comparison: None. Technique: Static and cine grayscale and Doppler ultrasound images used to evaluate the organs of the right upper quadrant. Findings: ??The liver has a normal echot exture and measures 16.2 cm. The pancreatic head and body are within normal limits. The pancreatic tail is not clearly visualized due to ov erlying bowel. There is no intrahepatic or extrahepatic biliary dilatation. The common bile duct measures 2.5 mm. ??The gallbladder contains no stones and has a normal wall thickness. There i s no pericholecystic fluid. Right kidney measures 10.9 cm and shows no sonographic evidence of hydronephrosis, mass or stone. Visualized portion of the aorta and IVC are normal. Impression: 1. Normal right upper quadrant ultrasoun d. I have personally reviewed the images an d the above interpretation and agree with the findings. Procedure Note Stone Davalos MD / Favian Davalos MD / Stone Davalos MD - 03/12/2009 US ABD ONE ORG/QUAD Mar 12, 2009 09:04:0 0 AM Signs and Symptoms/Comments: Episodes of middle abdominal pain. Random timing. Comparison: None. Technique: Static and cine grayscale and Doppler ultrasound images used to evaluate the organs of the right upper quadrant. Findings: The liver has a normal echotex ture and measures 16.2 cm. The pancreatic head and body are within normal limits. The pancreatic tail is not clearly visualized due to ov erlying bowel. There is no intrahepatic or extrahepatic biliary dilatation. The common bile duct measures 2.5 mm. The ga llbladder contains no stones and has a normal wall thickness. There i s no pericholecystic fluid. Right kidney measures 10.9 cm and shows no sonographic evidence of hydronephrosis, mass or stone. Visualized portion of the aorta and IVC are normal. Impression: 1. Normal right upper quadrant ultrasoun d. I have personally reviewed the images an d the above interpretation and agree with the findings. Performing Organization Address City/State/ZIP Code Phon e Number [facility] documented in this encounter Visit Diagnoses Not on filedocumented in this encounter Care Teams Sales Representative [employer] Relationship Specialty Start Date End Date Carmela Sanchez MD PCP - General 07/30/08 08/13/[address] [place] [phone] documented as of this encounter
--- OUTSIDE RECORDS SUMMARY | 2021-10-28 15:14 | XMS_ITS | Encounter Summary ---
:1990 Author Organization [facility] Address [address] [place] [address] Care Team Providers Name Role Phone Carmela Sanchez MD Primary Care Provider Reason for Visit Reason Comments Knee Pain Encounter Details Date Type Department Care Team Description 09/11/2008 - Emergency [facility] Emergency, Default, 09/12/2008 Emergency Department - [place] [facility] [place] [address] [place] [address] Social History Tobacco Use Types Packs/Day Years [...] Sign Reading Time Taken Comments Blood Pressure 121/77 09/11/2008 2306 EDT Pulse 68 09/11/2008 2306 EDT Temperature 37 ??C (98.6 ??F) 09/11/2008 2306 EDT Respiratory Rate 16 09/11/2008 2306 EDT Oxygen Saturation 100% 09/11/2008 230 EDT Inhaled Oxygen Concentration - - Weight - - Height - - Body Mass Index - - documented in this encounter Medications at Time of Discharge Medication Sig Dispensed Refills Start Date End Date omeprazole (PRILOSEC) 10 Take 20 mg by mouth 0 11/01/2009 mg capsule daily. trazodone (DESYREL) 50 mg Take 100 mg by mouth 0 02/26/2009 tablet at bedtime. documented as of this encounter Discharge Disposition Disposition Code Departure Means Destination Home or Self Care documented in this encounter ED Notes Liz Spring - 09/12/2008 0010 EDT Pt states that she wants to go home and will come back tomorrow after she gets out of work. documented in this encounter Plan of Treatment Not on filedocumented as of this encounter Visit Diagnoses Not on filedocumented in this encounter Historical Medications This list may reflect changes made after this encounter. Medication Sig Dispensed Refills Start Date End Date trazodone (DESYREL) 50 mg Take 100 mg by mouth 0 02/26/2009 tablet at bedtime. omeprazole (PRILOSEC) 10 Take 20 mg by mouth 0 11/01/2009 mg capsule daily. added in this encounter Care Teams Can Carrier Relationship Specialty Start Date End Date Carmela Sanchez MD PCP - General 07/30/08 08/13/[address] [place] [phone] documented as of this encounter
--- OUTSIDE RECORDS SUMMARY | 2021-10-28 15:14 | XMS_ITS | Encounter Summary ---
:1990 Author Organization [facility] Address [address] [place] [address] Care Team Providers Name Role Phone Carmela Sanchez MD Primary Care Provider Tricia Otero Primary Care Provider Unavailable None, Provider Primary Care Provider Unavailable Lyric Robbins MD Primary Care Provider Trell Pritchard MD Primary Care Provider Yvonne Peralta MD Primary Care Provider Ralph Bowman MD Primary Care Provider Unavailable Kristen Fontaine MD Primary Care Provider None, Provider Primary Care Provider Unavailable Gallo Small CARDIAC REHABILITATION SPECIALIST Primary Care Provider Michelle Singer CARDIAC REHABILITATION SPECIALIST Primary Care Provider Gallo Small CARDIAC REHABILITATION SPECIALIST Primary Care Provider Puneet Borrego RPA Primary Care Provider [phone] Encounter Details Date Type Department Care Team Description 07/07/2008 Hospital Encounter [facility] - Yu Long PA-C [address] [address] [facility] [address] [place], [place] [address] (Wo rk) Social History Tobacco Use Types [...] documented as of this encounter Care Teams Broker In Charge Relationship Specialty Start Date End Date Carmela Sanchez MD PCP - General 07/30/08 08/13/[address] [place] [phone] Tricia Otero PA PCP - General 08/14/11 11/28/11 None, Provider PCP - General 11/29/11 09/30/12 Lyric Robbins MD PCP - General 10/01/12 12/18/[address] [place] [address] [address] [place] [address] Trell Pritchard MD PCP - General 12/19/13 10/26/14 Yvonne Peralta MD PCP - General 10/27/14 11/26/14 Ralph Bowman, PCP - General 11/27/14 Kristen Mcguire MD PCP - General 02/08/18 11/21/18 None, Provider PCP - General 11/22/18 11/24/18 Gallo Small, CARDIAC REHABILITATION SPECIALIST PCP - General 11/25/18 12/02/18 Michelle Singer NP PCP - General 12/03/18 07/01/19 Gallo Small NP PCP - General Family Medicine - Primary 07/02/19 07/11/21 Care Puneet Borrego, [facility] PCP - General Family Medicine - Primary 07/12/[address] [place] [phone] documented as of this encounter
--- OUTSIDE RECORDS SUMMARY | 2021-10-28 15:14 | XMS_ITS | Encounter Summary ---
:1991 Author Organization [facility] Address [address] [place] [id number] Care Team Providers Name Role Phone Carmela Sanchez MD Primary Care Provider Encounter Details Date Type Department Care Team Description 01/18/2009 Abstract [facility] Family Carmela Sanchez MD [place] [id number] [address] [phone] [place] [address] [phone] Social History Tobacco Use Types Packs/Day Years [...] on filedocumented in this encounter Care Teams Milieu Therapist Relationship Specialty Start Date End Date Carmela Sanchez MD PCP - General 07/30/08 08/13/11 [address] [place] [phone] documented as of this encounter
--- OUTSIDE RECORDS SUMMARY | 2021-10-28 15:14 | XMS_ITS | Encounter Summary ---
:1991 Author Organization [facility] Address [address] [place] [address] Care Team Providers Name Role Phone Carmela Sanchez MD Primary Care Provider Tricia Otero Primary Care Provider Unavailable None, Provider Primary Care Provider Unavailable Lyric Robbins MD Primary Care Provider Trell Pritchard MD Primary Care Provider Yvonne Peralta MD Primary Care Provider Ralph Bwoman MD Primary Care Provider Unavailable Kristen Fontaine MD Primary Care Provider None, Provider Primary Care Provider Unavailable Gallo Small AUTO MECHANIC APPRENTICE Primary Care Provider Michelle Singer AUTO MECHANIC APPRENTICE Primary Care Provider Gallo Small AUTO MECHANIC APPRENTICE Primary Care Provider Puneet Borrego RPA Primary Care Provider [phone] Encounter Details Date Type Department Care Team Description 05/19/2008 Hospital Encounter [facility] - Alfonzo Steiner Maple conversion MD [address] [place] [address] Social History Tobacco Use Types [...] worried that your food Somevipin mes true 06/20/2019 would run out before [...] Date/Time Associated Comments Diagnosis HELICOBACTER PYLORI Routine 05/19/2008 10:15 Resu lts for this IGG ANTIBODY EST procedure are i n the results section. MONO-TEST Routine 05/19/2008 10:15 Results for this EST procedure are i n the results section. COMPLETE BLOOD COUNT Routine 05/19/2008 10:15 Res ults for this AND DIFFERENTIAL EST procedure a re in the results section. QUANT BETA HCG, Routine 05/19/2008 10:15 Results for this EST procedure are i n the results section. HEPATIC FUNCTION Routine 05/19/2008 10:15 Results for this PANEL (ALB,ALK EST procedure are in PHOS,ALT,AST,DBIL,TOT the re sults JOSÉ MIGUEL,TOT PROT) section. documented in this encounter Results HELICOBACTER PYLORI IGG ANTIBODY (05/19/2008 10:15 EST) Pathologist Sig nature H Pylori IgG <0.4 U/mL [facility] Comment: Interpretation: ??Negative Negative is <0.9 U/mL Assayed utilizing the DPC Immulite 2500. Values may vary with other methods. Specimen Performing Organization Address City/State/ZIP Code Phon e Number [facility] [address] [place] [phone] SERVICES [facility] [address] [place] [address] HCG (05/19/2008 10:15 EST) Pathologist Sig nature HCG <4 <4 mIU/ml [facility] Comment: Reference Range: Positive = >10 Borderline = 4-10 recommend repeat. Negative = <4 Specimen Performing Organization Address [facility] Phon e Number [facility] [address] [place] [address] SERVICES [facility] [address] [place] [address] LIVER FUNCTION TESTS (05/19/2008 10:15 EST) Pathologist Sig nature Albumin 3.8 3.0 - 5.5 g/dl [facility] Total Protein 6.7 6.3 - 8.6 g/dl [facility] Alkaline Phosphatase 92 50 - 130 U/L [facility] ALT 43 0 - 45 U/L [facility] AST 29 15 - 46 U/L [facility] Unconjugated Bilirubin 0.3 0.1 - 1.1 mg/dl [facility] Conjugated Bilirubin 0.0 0.0 - 0.3 mg/dl [facility] B Bilirubin, Total <0.5 0.0 - 1.4 mg/dl [facility] Specimen Performing Organization Address [facility] Phon e Number [facility] [address] [place] [address] SERVICES [facility] [address] [place] [address] MONO-TEST (05/19/2008 10:15 EST) Pathologist Sig nature Murray-Test Neg NEG [facility] Specimen Performing Organization Address [facility] Phon e Number [facility] [address] [place] [address] SERVICES [facility] [address] [place] [address] HEMAGRAM AND DIFFERENTIAL (05/19/2008 10:15 EST) Pathologist Sig nature WBC 6.63 4.6 - 11.2 K/cmm [facility] RBC 4.59 4.10 - 5.10 M/cmm [facility] Hemoglobin 14.5 12.0 - 16.0 gm/dl [facility] HCT 42.2 36.0 - 46.0 % [facility] MCV 92 78 - 102 fl [facility] MCH 31.7 pg [facility] MCHC 34.5 gm/dl [facility] PLT 229 156 - 312 K/cmm [facility] RDW-CV 13.5 % [facility] Neutrophils 47.1 % [facility] Lymphocytes 36.7 % [facility] Monocytes 13.1 % [facility] Eosinophils 2.5 % [facility] Basophils 0.6 % [facility] ABS Neutrophils 3.12 K/cmm [facility] ABS Lymphs 2.43 K/cmm [facility] ABS Monocytes 0.87 K/cmm [facility] ABS Eosinophils 0.17 K/cmm [facility] ABS Basophils 0.04 K/cmm [facility] Type of Diff: Automated [facility] Specimen Performing Organization Address City/State/ZIP Code Phon e Number [facility] [address] [place] [address] SERVICES [facility] [address] [place] [address] documented in this encounter Visit Diagnoses Not on filedocumented in this encounter Additional Health Concerns Infection Onset Date Last Indicated Resolved Time R/O COVID-19 10/30/2019 10/30/2019 10/30/2019 15:36 EDT documented as of this encounter Care Teams Roof Tiler Relationship Specialty Start Date End Date Carmela Sanchez MD PCP - General 07/30/08 08/13/[address] [place] [phone] Tricia Otero PA PCP - General 08/14/11 11/28/11 None, Provider PCP - General 11/29/11 09/30/12 Lyric Robbins MD PCP - General 10/01/12 12/18/13 [address] [facility] [address] [place] [address] Trell Pritchard MD PCP - General 12/19/13 10/26/14 Yvonne Peralta MD PCP - General 10/27/14 11/26/14 Ralph Bowman, PCP - General 11/27/14 Kristen Mcguire MD PCP - General 02/08/18 11/21/18 None, Provider PCP - General 11/22/18 11/24/18 Gallo Small, AUTO MECHANIC APPRENTICE PCP - General 11/25/18 12/02/18 Michelle Singer, NIRANJAN PCP - General 12/03/18 07/01/19 Gallo Small, NIRANJAN PCP - General Family Medicine - Primary 07/02/19 07/11/21 Care Puneet Borrego, SANDY PCP - General Family Medicine - Primary 07/12/[address] [place] [phone] documented as of this encounter
--- OUTSIDE RECORDS SUMMARY | 2021-10-28 15:14 | XMS_ITS | Encounter Summary ---
:1991 Author Organization [facility] Address [address] [place] [address] Care Team Providers Name Role Phone Unavailable Primary Care Provider Unavailable Encounter Details Date Type Department Care Team Description 05/28/2008 - Hospital Encounter [facility] Emergency, 05/29/2008 Emergency Department - [place], [address] [place] [address] [place] [address] Social History Tobacco Use Types Packs/Day Years [...]
--- OUTSIDE RECORDS SUMMARY | 2021-10-28 15:14 | XMS_ITS | Encounter Summary ---
:1990 Author Organization [facility] Address [address] [place] [id number] Care Team Providers Name Role Phone Carmela Sanchez MD Primary Care Provider Encounter Details Date Type Department Care Team Description 03/03/2009 Orders Only [facility] Family Carmela Sanchez MD [place] [id number] [phone] (Wo rk) Social History Tobacco Use [...] on filedocumented in this encounter Care Teams Supplier Quality Specialist Relationship Specialty Start Date End Date Carmela Sanchez MD PCP - General 07/30/08 08/13/11 [address] [place] [phone] documented as of this encounter
--- OUTSIDE RECORDS SUMMARY | 2021-10-28 15:14 | XMS_ITS | Encounter Summary ---
:1990 Author Organization [facility] Address [address] [place] [address] Care Team Providers Name Role Phone Unavailable Primary Care Provider Unavailable Encounter Details Date Type Department Care Team Description 05/03/2008 Hospital Encounter [facility], Emergency Department - [place], [address] [place] [address], [place] [id number] Social History Tobacco Use Types Packs/Day Years [...] Name Priority Date/Time Associated Diagnosis Comme nts THORACIC SPINE 2-3 05/03/2008 16:45 Resul ts for this VIEWS EST procedure are i n the results section. CERVICAL SPINE 2-3 05/03/2008 16:45 Resul ts for this VIEWS EST procedure are i n the results section. documented in this encounter Results THORACIC SPINE 2-3 VIEWS (05/03/2008 16:45 EST) Anatomical Region Laterality Modality Other Specimen Narrative [facility] - 08/24/2008 10 :43 EDT fall back onto head c-1-2 ttp t1-2 ttp no neuro sxs r/o fx THORACIC SPINE 2-3 VIEWS ??May 03, 2008 4:45:00 PM Signs and Symptoms: ??18-year-old female with fall on back. Pain at the upper cervical spine and upper thora cic spine. No neurologic symptoms. Findings: Cervical spine: Frontal, lateral, swimme r's, and odontoid views were obtained. There is no prevertebral soft tissue swelling. There is straightening of the cervical spine, wit h otherwise normal alignment. The atlanto-dens interval is normal. The atlantoaxial joint is normally aligned. There is no fracture. The cervicothoracic junction is not well visualized. Thoracic spine: Frontal, lateral, and sw immers views were obtained. Curvature of the spine may be positional in nature. There is no paraspinal soft tissue swelling. There i s no fracture. The cervicothoracic junction is not well vis ualized. Impression: 1. No fracture or dislocation. 2. Cervicothoracic junction is not well visualized on the swimmer's view. If clinically indicated, swimmers view can be repeated or a CT at that level can be performed. Dr. Dominique discussed findings with CARMELA Russell. I have personally reviewed the images an d the above interpretation and agree with the findings. Procedure Note Harsh Dominique MD / William Zee, DO - 08/24/2008 fall back onto head c-1-2 ttp t1-2 ttp no neuro sxs r/o fx THORACIC SPINE 2-3 VIEWS May 03, 2008 4: 45:00 PM Signs and Symptoms: 18-year-old female w ith fall on back. Pain at the upper cervical spine and upper thora cic spine. No neurologic symptoms. Findings: Cervical spine: Frontal, lateral, swimme r's, and odontoid views were obtained. There is no prevertebral soft tissue swelling. There is straightening of the cervical spine, wit h otherwise normal alignment. The atlanto-dens interval is normal. The atlantoaxial joint is normally aligned. There is no fracture. The cervicothoracic junction is not well visualized. Thoracic spine: Frontal, lateral, and sw immers views were obtained. Curvature of the spine may be positional in nature. There is no paraspinal soft tissue swelling. There i s no fracture. The cervicothoracic junction is not well vis ualized. Impression: 1. No fracture or dislocation. 2. Cervicothoracic junction is not well visualized on the swimmer's view. If clinically indicated, swimmers view can be repeated or a CT at that level can be performed. Dr. Dominique discussed findings with CARMELA Russell. I have personally reviewed the images an d the above interpretation and agree with the findings. Performing Organization Address City/State/ZIP Code Phon e Number [facility] [address] [facility] [address] [facility] [address] [place], [place] [address] CERVICAL SPINE 2-3 VIEWS (05/03/2008 16:45 EST) Anatomical Region Laterality Modality Other Specimen Narrative [facility] - 08/24/2008 10 :43 EDT fall back onto head c-1-2 ttp t1-2 ttp no neuro sxs r/o fx THORACIC SPINE 2-3 VIEWS ??May 03, 2008 4:45:00 PM Signs and Symptoms: ??18-year-old female with fall on back. Pain at the upper cervical spine and upper thora cic spine. No neurologic symptoms. Findings: Cervical spine: Frontal, lateral, swimme r's, and odontoid views were obtained. There is no prevertebral soft tissue swelling. There is straightening of the cervical spine, wit h otherwise normal alignment. The atlanto-dens interval is normal. The atlantoaxial joint is normally aligned. There is no fracture. The cervicothoracic junction is not well visualized. Thoracic spine: Frontal, lateral, and sw immers views were obtained. Curvature of the spine may be positional in nature. There is no paraspinal soft tissue swelling. There i s no fracture. The cervicothoracic junction is not well vis ualized. Impression: 1. No fracture or dislocation. 2. Cervicothoracic junction is not well visualized on the swimmer's view. If clinically indicated, swimmers view can be repeated or a CT at that level can be performed. Dr. Dominique discussed findings with CARMELA Russell. I have personally reviewed the images an d the above interpretation and agree with the findings. Procedure Note Harsh Dominique MD / William Zee, DO - 08/24/2008 fall back onto head c-1-2 ttp t1-2 ttp no neuro sxs r/o fx THORACIC SPINE 2-3 VIEWS May 03, 2008 4: 45:00 PM Signs and Symptoms: 18-year-old female w ith fall on back. Pain at the upper cervical spine and upper thora cic spine. No neurologic symptoms. Findings: Cervical spine: Frontal, lateral, swimme r's, and odontoid views were obtained. There is no prevertebral soft tissue swelling. There is straightening of the cervical spine, wit h otherwise normal alignment. The atlanto-dens interval is normal. The atlantoaxial joint is normally aligned. There is no fracture. The cervicothoracic junction is not well visualized. Thoracic spine: Frontal, lateral, and sw immers views were obtained. Curvature of the spine may be positional in nature. There is no paraspinal soft tissue swelling. There i s no fracture. The cervicothoracic junction is not well vis ualized. Impression: 1. No fracture or dislocation. 2. Cervicothoracic junction is not well visualized on the swimmer's view. If clinically indicated, swimmers view can be repeated or a CT at that level can be performed. Dr. Dominique discussed findings with CARMELA Russell. I have personally reviewed the images an d the above interpretation and agree with the findings. Performing Organization Address City/State/ZIP Code Phon e Number [facility] [address] [facility] [address] [facility] [address] [place], [place] [address] documented in this encounter Visit Diagnoses Not on filedocumented in this encounter
--- OUTSIDE RECORDS SUMMARY | 2021-10-28 15:14 | XMS_ITS | Encounter Summary ---
:1990 Author Organization [facility] Address [address] [place] [address] Care Team Providers Name Role Phone Unavailable Primary Care Provider Unavailable Encounter Details Date Type Department Care Team Description 04/11/2008 Hospital Encounter [facility], Emergency Department - [place], [address] [place] [address] [place], [place] [id number] Social History Tobacco Use Types Packs/Day Years [...]
--- OUTSIDE RECORDS SUMMARY | 2021-10-28 15:14 | XMS_ITS | Encounter Summary ---
:1990 Author Organization [facility] Address [address] [place] [address] Care Team Providers Name Role Phone Carmela Sanchez MD Primary Care Provider Encounter Details Date Type Department Care Team Description 05/03/2008 Office Visit [facility], PR[facility] conversion [address] [facility] [address] [place], [place] [phone] [place] [phone] (Wo rk) Social History Tobacco Use Types [...] documented as of this encounter Progress Notes Holland Landers MD - 05/21/2009 1546 EST Department - Physician Summary Registration Date/Time: 05/03/2008 15:50 Time Seen; upon arrival. Arrived- By private vehicle. Historian- patient. HISTORY OF PRESENT ILLNESS Chief Complaint- FALL. Location of injuries- head and neck. The accident occurred just prior to arrival. Fell. Occurred at home. slipped on ice at bottom of stairs, hit head on wooden stair, was stunned then dizzy. The patient complains of moderate pain. The patient sustained a blow to the head, complains of neck pain and was dazed. No loss of consciousness. REVIEW OF SYSTEMS The patient has had dizziness. She has had a headache and nausea but no pain on weight bearing. No numbness, loss of vision, hearing loss, chest pain or difficulty breathing. No weakness, abdominal pain, laceration or vomiting. PAST HISTORY See nurses notes. Medications: The patient's medications have been reviewed. Allergies: The patient's allergies have been reviewed. ADDITIONAL NOTES The nursing notes have been reviewed. PHYSICAL EXAM Appearance: Alert. Oriented X3. Vital Signs: Have been reviewed. Head: Right parietal area: mild tenderness and swelling of the lower posterior aspect of the right parietal area. No erythema, laceration, abrasion, ecchymosis or puncture wound. No deformity. Eyes: Pupils equal, round and reactive to light. EOM intact. ENT: No dental injury. No hemotympanum. Pharynx normal. Neck: Painful ROM in the neck. Tenderness present. Vertebral tenderness of the upper cervical spine. Back: Mild vertebral point tenderness over the upper thoracic spine. Extremities: Normal inspection. Pelvis stable. Extremities atraumatic. No lower extremity edema. LABS, X-RAYS, AND EKG X-Rays: C-spine series negative. T-Spine series negative. The X-rays were interpreted by the radiologist and contemporaneously by me and discussed with the radiologist. PROGRESS AND PROCEDURES ED Attending on duty and available for supervision: Tres Reece. Disposition: Discharged home in good condition. Discharged home in good condition. CLINICAL IMPRESSION Concussion. Fall. INSTRUCTIONS Apply iceintermittently (15-20 minutes at a time 4-6 times daily) today, tomorrow. Warnings: GENERAL WARNINGS: Return to the Emergency Department or contact your physician immediately if your condition worsens or changes unexpectedly, if not improving as expected, or if other problems arise. OTC Medications: Motrin IB 200 mg (available overthe counter): take 3 orally as needed for pain. Follow-up: Follow up with your doctor in three days if not better. (Electronically signed by Holland Landers, 05/04/2008 14:26) Department - Nursing Summary Registration Date/Time: 05/03/2008 15:50 TRIAGE Initial Assessment Triage time 15:58. Acuity: LEVEL 3. BP: 133 / 97. HR: 80. RR: 18. Temp: 37.2 C (oral). Alert. --1600 Ashley Sullivan R.N., CODEI. Medications (albuterol inhaler prn, none today). --1600 Ashley Sullivan R.N., CODIE. Allergies (sulfa ). --1600 Ashley Sullivan R.N., CODIE. History Chief Complaint: (s/p slip and fall on ice at bottom of stairs, hit back of head, no LOC, full recall; c/o posterior head pain, neck pain; ). Pain level now: 12/17. PAST HX: Denies current . (asthma ). SOCIAL HX: Smoker. No alcohol use. No report of abuse. Arrived by EMS. Historian: patient and EMS. --1600 Ashley Sullivan R.N., CODIE. PHYSICAL ASSESSMENT Appears in no acute distress. Oriented X 3. Respirations not labored. Mucous membranes are pink. Skin is warm and dry. --160 Ashley Sullivan R.N., CEN. NURSING PROGRESS NOTES C-collar applied (plane captain). Patient placed on backboard (plane captain). --160 Ashley Sullivan R.N., CEN Call light placed in reach. Side rails up x 2. Bed placed in lowest position. Brakes of bed on. --160 Ashley Sullivan R.N., CEN (assessed by PA, logrolled off backboard, ccollar remains in place). --162 Ashley Sullivan R.N., CEN (pt to xray). --163 Ashley Sullivan R.N., CODIE Care transferred and report received. --170 Braulio Jones R.N. (report to and care trans to Ramandeep Jones RN). --170 Ashley Sullivan R.N., CEN (Assisted with use of bedpan, maintaining spine precautions. Hard cervical collar still in place. Voided without difficulty.). --1735 Renetta Ferrari R.N. KETOROLAC 15 mg slow IVP. IV patency established. IV site checked: no pain, redness, or swelling. IVflushed thoroughly pre- and post-medication administration. . --1804 Braulio Jones R.N.. IV / I&O Flowsheet IV Site #1. IV started prior to arrival by EMS: 18g angiocath. --1601 Ashley Sullivan R.N., [facility]. DISPOSITION / DISCHARGE BP: 104/54. HR: 68. RR: 16. O2 saturation: 97% room air. IV site discontinued, catheter intact. Patient reports pain level on departure as 2/10. No learning barriers present. 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 Reviewed warnings. Reviewed medication. Treatments reviewed. Reviewed referrals. Patient, retail cosmetics sales beauty advisor verbalized understanding. Written instructions provided in Malawian.The patient was discharged home and accompanied by retail cosmetics sales beauty advisor. The patient left the Emergency Department ambulatory and via private vehicle. Crust Sorter driving. --230 Braulio Jones R.N.. Ashley Sullivan R.N., [facility] Abhishek Camejo R.N. Locked/Released at 05/03/2008 22:34 by Renetta Ferrari R.N. documented in this encounter Plan of Treatment Not on filedocumented as of this encounter Visit Diagnoses Not on filedocumented in this encounter Care Teams Groundskeeper Relationship Specialty Start Date End Date Carmela Sanchez MD PCP - General 07/30/08 08/13/[address] [place] [phone] documented as of this encounter
--- NOTE | 2021-10-28 15:15 | DI.RAD_ITS ---
Exam(s) XR FOOT LT COMPLETE EXAM: XR FOOT LT COMPLETE CLINICAL HISTORY: Foot Injury, plantar foot pain, R/O Fracture. TECHNIQUE: 2D digital imaging was performed. Three views. COMPARISON: No exams were available for comparison FINDINGS: BONES: No acute fracture is present. No bony destructive lesion is seen. JOINTS: No dislocation present. SOFT TISSUE: Normal. IMPRESSION: Unremarkable radiographs of the left foot. DATA REPOSITORY: RADIATION DOSE DELIVERED:
--- NOTE | 2021-10-28 15:21 | W.ED.GENAD ---
Discharge Plan Disposition Patient Disposition: HOME Condition: Stable Discharge Details Clinical Impression: Foot sprain Primary Care Provider: Puneet Borrego ED Provider: Cecelia Galan Home Meds and New Rx's Prescriptions: No Action etonogestrel-ethinyl estradiol [NuvaRing] 0.12-0.015 mg/24 hr ring 1 vag ring vaginal Q4W Qty: 3 4RF Rx Instructions: Leave in vagina as we discussed, and change on your change date pantoprazole [Protonix] 20 mg Tablet,Delayed Release (Dr/Ec) 20 mg PO DAILY sertraline 50 mg Tablet 50 mg PO DAILY valacyclovir 1 gram tablet 1 mg PO DAILY Label Comments: TAKE ONE TABLET BY MOUTH EVERY DAY sumatriptan succinate 25 mg tablet 25 mg PO DAILY MDD 50 PRN (Reason: Migraine Headache) Label Comments: TAKE ONE TABLET BY MOUTH EVERY DAY NEEDED FOR MIGRAINE. CAN REPEAT A TABLET IF NEEDED AFTER ONE HOUR ondansetron HCl 4 mg tablet 4 mg PO DAILY PRN Label Comments: TAKE ONE TABLET BY MOUTH EVERY DAY NEEDED FOR NAUSEA dicyclomine 20 mg tablet 20 mg PO TID PRN Label Comments: TAKE ONE TABLET BY MOUTH THREE TIMES A DAY NEEDED FOR ABDOMINAL CRAMPING budesonide-formoterol [Symbicort] 160-4.5 mcg/actuation HFA aerosol inhaler 2 puff INHALATION BID Label Comments: INHALE ONE PUFF BY MOUTH TWICE A DAY Linzess 145 mcg capsule 145 mcg PO DAILY Label Comments: TAKE ONE CAPSULE BY MOUTH EVERY DAY Linzess 145 mcg capsule 145 mcg PO DAILY Label Comments: TAKE ONE CAPSULE BY MOUTH EVERY DAY albuterol sulfate 2.5 mg/0.5 mL Solution For Nebulization 2.5 mg inhalation PRN PRN Discharge Instructions Instructions: Foot Sprain (ED) Additional Instructions: No acute bony abnormality noted on the x-rays today. No evidence of broken bones. I do suspect that you have sprained your foot. Please wear the walking boot as needed for comfort. Rest ice compression elevation. Advance as tolerated. He may try to wrap the foot after ambulatory without discomfort. Please take Tylenol or Ibuprofen with food every 4-6 hours as needed for pain and swelling. Follow up with primary care provider in 3-5 days. Return to ED sooner if any worsening or concerns. Increase oral fluids. Stand Alone Forms: Work Release Referrals: Puneet Borrego [Primary Care Provider] - Return if symptoms worsen Discharge Data Discharge Date/Time-TO BE ENTERED AT DEPARTURE: 10/28/21 16:02 Medical Decision Making 31 year old female who presents to the ER with chief complaint of left foot pain status post slipping on a hill and a twisting type injury. Patient was ambulatory after the injury was ambulatory upon arrival here in the department. No obvious deformity noted CMS intact distally. No other complaints or injuries. She has not taken any medications prior to arrival. Past medical history includes GERD, she denies she is currently on her menstruation. Xray ordered. EXAM: XR FOOT LT COMPLETE CLINICAL HISTORY: Foot Injury, plantar foot pain, R/O Fracture. TECHNIQUE: 2D digital imaging was performed. Three views. COMPARISON: No exams were available for comparison FINDINGS: BONES: No acute fracture is present. No bony destructive lesion is seen. JOINTS: No dislocation present. SOFT TISSUE: Normal. IMPRESSION: Unremarkable radiographs of the left foot. Patient given walking boot instructions for home care. RICE procedures. Conservative treatment Tylenol ibuprofen. Discussed follow-up verbalized understanding. This text was generated using [employer] system, please disregard any oddities of phrase or misspellings. HPI General Mode of arrival: ambulatory. Date/Time Provider Initiated Documentation: 10/28/21 15:02. Limitations to Documentation: no limitations. Information obtained by: patient and RN notes reviewed. HPI Narrative: 31 year old female who presents to the ER with chief complaint of left foot pain status post slipping on a hill and a twisting type injury. Patient was ambulatory after the injury was ambulatory upon arrival here in the department. No obvious deformity noted CMS intact distally. No other complaints or injuries. She has not taken any medications prior to arrival. Past medical history includes GERD, she denies she is currently on her menstruation. Related Data Home Medications Medication Instructions Recorded Confirmed pantoprazole 20 mg tablet,delayed 20 mg PO DAILY 01/19/20 10/28/21 release (Protonix) sertraline 50 mg tablet 50 mg PO DAILY 01/19/20 10/28/21 budesonide-formoterol HFA 160 2 puff inhalation BID 08/12/20 10/28/21 mcg-4.5 mcg/actuation aerosol inhaler (Symbicort) dicyclomine 20 mg tablet 20 mg PO TID PRN 08/12/20 10/28/21 linaclotide 145 mcg capsule 145 mcg PO DAILY 08/12/20 05/04/21 (Linzess) ondansetron HCl 4 mg tablet 4 mg PO DAILY PRN 08/12/20 10/28/21 sumatriptan succinate 25 mg tablet 25 mg PO DAILY PRN Migraine 08/12/20 10/28/21 Headache valacyclovir 1 gram tablet 1 mg PO DAILY 08/12/20 10/28/21 etonogestrel 0.12 mg-ethinyl 1 vag ring vaginal Q4W #3 ea 09/17/20 05/04/21 estradiol 0.015 mg/24 hr vaginal ring (NuvaRing) linaclotide 145 mcg capsule 145 mcg PO DAILY 10/28/20 10/28/21 (Linzess) albuterol sulfate 2.5 mg/0.5 mL 2.5 mg inhalation PRN PRN 10/28/21 10/28/21 solution for nebulization Previous Rx's Medication Instructions Recorded etonogestrel 0.12 mg-ethinyl 1 vag ring vaginal Q4W #3 ea 09/17/20 estradiol 0.015 mg/24 hr vaginal ring (NuvaRing) Allergies Allergy/AdvReac Type Severity Reaction Status Date / Time Sulfa (Sulfonamide Allergy Intermediate Skin Rash Unverified 10/28/21 15:13 Antibiotics) General Stated Complaint: Orthopedic HAMILTON: 4 Review of Systems Musculoskeletal Musculoskeletal: Reports as per HPI and Reports arthralgias PFSH All Active Problems (Updated 10/28/21 @ 15:49 by Cecelia Galan NP) Headache (Acute) Foot sprain (Acute) Contraception management (Acute) Menometrorrhagia (Acute) Abdominal pain (Acute) Social History Smoking/Tobacco Use Status: Never Smoking risk assessment performed?: Yes Alcohol Intake: current Alcohol Intake frequency: a few times a month Drug use: Never Substance use type: does not use Do you feel safe at home: Yes Do you feel safe in your relationship?: Yes Exam Extrem General: normal to inspection Left lower extremity: foot Details: normal capillary refill, normal to inspection, tenderness Location: of the dorsal foot and of the mid foot and toes with normal ROM Course Vital Signs Vital signs: Vital Signs Pulse 79 10/28/21 15:11 Blood Pressure 133/96 H 10/28/21 15:11 Pulse Oximetry 98 10/28/21 15:11 Pulse 79 10/28/21 15:11 Respiratory Effort Non-Labored 10/28/21 15:17 Blood Pressure 133/96 H 10/28/21 15:11 Blood Pressure Position Sitting 10/28/21 15:11 Pulse Oximetry 98 10/28/21 15:11 Oxygen Delivery Method Room Air 10/28/21 15:11 Oxygen Flow Rate 0 10/28/21 15:11 PAWSS Have you Been Recently Intoxicated or Drunk Within the Last 30 days?: No Have you Ever Experienced Previous Episodes of Alcohol Withdrawal?: No Have you ever Experienced Withdrawal Seizures?: No Have you ever Experienced Delirium Tremens(DT)s?: No Have you ever undergone Alcohol Rehabilitation Treatment (i.e, inpt ot outpatient treatment programs)?: No Have you ever Experienced Blackouts?: No Have you ever Combined Alcohol with other Downers within the last 90 days?: No Have you ever Combined Alcohol with any other Substance of Abuse during the last 90 days?: No Positive Blood Alcohol level on Presentation? [PCS.BAL]: No Evidence of Increased Autonomic Activity (i.e. HR>120, tremor, sweating, agitation, nausea)?: No Result: 0
--- NOTE | 2021-10-28 15:29 | PDOC.ERCMPRO ---
- If Service Date Differs Date of service: 10/28/21 Time of Service: 15:29 Care Management Progress Note SBIRT screen: Pt reports daily vaping of nicotine and was provided with resources for cessation including hypnotherapy. Pt endorses minimal anxiety symptoms (MATHEUS 4)and states she is currently in counseling and has effective coping skills.
[2021-10-28] MEDS: Ibuprofen 600 MG TAB PO (15:54)
== END 2021-10-28 16:02 | disposition home or self-care (01) ==
PROVIDERS: Emergency Provider Registered Nurse Emergency; PCP Physician Assistant
DX: S93.602A Unspecified sprain of left foot, initial encounter (principal); W18.40XA Slipping, tripping and stumbling without falling, unspecified, initial encounter; X50.1XXA Overexertion from prolonged static or awkward postures, initial encounter; Y92.828 Other wilderness area as the place of occurrence of the external cause
CPT/HCPCS: 99283; 73630; 99282

== ENCOUNTER 2022-05-19 08:00 | Emergency (ER) | payer MEDICAID, SELFPAY ==
--- NOTE | 2022-05-19 08:00 | DI.RAD_ITS ---
Exam(s) XR KNEE LT 3V AP,LAT,RACHELLE EXAM: XR KNEE LT 3V AP,LAT,RACHELLE CLINICAL HISTORY: Fall, knee pain. TECHNIQUE: 2D digital imaging was performed of the left knee. Three images were obtained. AP, late ral and PA tunnel views were obtained. COMPARISON: No exams were available for comparison FINDINGS: BONES: No acute fracture is present. No bony destructive lesion is seen. JOINTS: The knee is normally aligned. No joint effusion is seen. SOFT TISSUE: Normal. IMPRESSION: Normal radiographs of the left knee. DATA REPOSITORY: RADIATION DOSE DELIVERED:
[2022-05-19 08:04] VITALS: BP 138/78; PULSE 104; RESP 18; TEMP 37.2; O2SAT 98
--- NOTE | 2022-05-19 08:13 | W.ED.GENAD ---
Discharge Plan Disposition Patient Disposition: Home Condition: Stable Discharge Details Clinical Impression: Left knee sprain Primary Care Provider: Puneet Borrego ED Provider: Cecelia Galan Home Meds and New Rx's Prescriptions: Continued etonogestrel-ethinyl estradiol [NuvaRing] 0.12-0.015 mg/24 hr ring 1 vag ring vaginal Q4W Qty: 3 4RF Rx Instructions: Leave in vagina as we discussed, and change on your change date pantoprazole [Protonix] 20 mg Tablet,Delayed Release (Dr/Ec) 20 mg PO DAILY sertraline 50 mg Tablet 50 mg PO DAILY valacyclovir 1 gram tablet 1 mg PO DAILY Patient Comments: TAKE ONE TABLET BY MOUTH EVERY DAY sumatriptan succinate 25 mg tablet 25 mg PO DAILY MDD 50 PRN (Reason: Migraine Headache) Patient Comments: TAKE ONE TABLET BY MOUTH EVERY DAY NEEDED FOR MIGRAINE. CAN REPEAT A TABLET IF NEEDED AFTER ONE HOUR ondansetron HCl 4 mg tablet 4 mg PO DAILY PRN Patient Comments: TAKE ONE TABLET BY MOUTH EVERY DAY NEEDED FOR NAUSEA dicyclomine 20 mg tablet 20 mg PO TID PRN Patient Comments: TAKE ONE TABLET BY MOUTH THREE TIMES A DAY NEEDED FOR ABDOMINAL CRAMPING budesonide-formoterol [Symbicort] 160-4.5 mcg/actuation HFA aerosol inhaler 2 puff INHALATION BID Patient Comments: INHALE ONE PUFF BY MOUTH TWICE A DAY Linzess 145 mcg capsule 145 mcg PO DAILY Patient Comments: TAKE ONE CAPSULE BY MOUTH EVERY DAY Linzess 145 mcg capsule 145 mcg PO DAILY Patient Comments: TAKE ONE CAPSULE BY MOUTH EVERY DAY albuterol sulfate 2.5 mg/0.5 mL Solution For Nebulization 2.5 mg inhalation PRN PRN Discharge Instructions Instructions: Knee Sprain (ED) Additional Instructions: Rest ice compression elevation. Wear the splint as needed for comfort. If it continues to bother you after couple weeks of rest ice compression elevation please follow-up with [facility]. X-rays today showed no evidence of malalignment or fracture. Follow up with primary care provider in 3-5 days. Return to ED sooner if any worsening or concerns. Increase oral fluids. Please take Tylenol or Ibuprofen with food every 4-6 hours as needed for pain and swelling. Stand Alone Forms: Work Release Referrals: Puneet Borrego [Primary Care Provider] - Return if symptoms worsen Bob Redman MD [ [facility] STAFF PHYSICIAN] - 2 weeks Discharge Data Discharge Date/Time-TO BE ENTERED AT DEPARTURE: 05/19/22 13:31 Medical Decision Making 32-year-old female presents to the ER with a chief complaint of left knee pain after a twisting type slip and fall yesterday on the ice. She reports that her leg went behind her. Urine and x-ray ordered. Did offer analgesic with patient declined at this time. X-ray within normal limits. Instructed on home care and [facility] procedures verbalized understanding. I do suspect a sprain. Instructed to follow-up with Ortho if any continued pain in the next 2 to 3 weeks if needed. Patient given a hinged knee brace and crutches. This text was generated using Xtraiceation system, please disregard any oddities of phrase or misspellings. Imaging Data Radiologic Study: Imaging: X-Ray Radiologist's impression: EXAM:? XR KNEE LT 3V AP,LAT,RACHELLE CLINICAL HISTORY: ? Fall, knee pain.? TECHNIQUE:? 2D digital imaging was performed of the left knee.? Three images were obtained.? AP, lateral and PA tunnel? views were obtained. COMPARISON:? No exams were available for comparison FINDINGS: BONES:? No acute fracture is present. No bony destructive lesion is seen. JOINTS: The knee is normally aligned. No joint effusion is seen. SOFT TISSUE: Normal. IMPRESSION: Normal radiographs of the left knee. HPI General Mode of arrival: ambulatory. Date/Time Provider Initiated Documentation: 05/19/22 08:08. Limitations to Documentation: no limitations. Information obtained by: patient, RN notes reviewed and old records reviewed. HPI Narrative: 32-year-old female presents to the ER with a chief complaint of left knee pain after a twisting type slip and fall yesterday on the ice. She reports that her leg went behind her. She denies any neck or back pain or any other associated symptoms. She denies any chance of however she is not on any control at this time. She has been taking Tylenol with little to no relief. No obvious deformity no swelling. She was ambulatory upon arrival. Related Data Home Medications Medication Instructions Recorded Confirmed pantoprazole 20 mg tablet,delayed 20 mg PO DAILY 01/19/20 10/28/21 release (Protonix) sertraline 50 mg tablet 50 mg PO DAILY 01/19/20 10/28/21 budesonide-formoterol HFA 160 2 puff inhalation BID 08/12/20 10/28/21 mcg-4.5 mcg/actuation aerosol inhaler (Symbicort) dicyclomine 20 mg tablet 20 mg PO TID PRN 08/12/20 10/28/21 linaclotide 145 mcg capsule 145 mcg PO DAILY 08/12/20 05/04/21 (Linzess) ondansetron HCl 4 mg tablet 4 mg PO DAILY PRN 08/12/20 10/28/21 sumatriptan succinate 25 mg tablet 25 mg PO DAILY PRN Migraine 08/12/20 10/28/21 Headache valacyclovir 1 gram tablet 1 mg PO DAILY 08/12/20 10/28/21 etonogestrel 0.12 mg-ethinyl 1 vag ring vaginal Q4W #3 ea 09/17/20 05/04/21 estradiol 0.015 mg/24 hr vaginal ring (NuvaRing) linaclotide 145 mcg capsule 145 mcg PO DAILY 10/28/20 10/28/21 (Linzess) albuterol sulfate 2.5 mg/0.5 mL 2.5 mg inhalation PRN PRN 10/28/21 10/28/21 solution for nebulization Previous Rx's Medication Instructions Recorded etonogestrel 0.12 mg-ethinyl 1 vag ring vaginal Q4W #3 ea 09/17/20 estradiol 0.015 mg/24 hr vaginal ring (NuvaRing) Allergies Allergy/AdvReac Type Severity Reaction Status Date / Time Sulfa (Sulfonamide Allergy Intermediate Skin Rash Unverified 10/28/21 15:13 Antibiotics) General Stated Complaint: Orthopedic HAMILTON: 4 Review of Systems All systems reviewed & are unremarkable except as noted in HPI and below Musculoskeletal Musculoskeletal: Reports as per HPI and Reports arthralgias PFSH All Active Problems (Updated 05/19/22 @ 09:36 by Cecelia Galan NP) Headache (Acute) Left knee sprain (Acute) Contraception management (Acute) Menometrorrhagia (Acute) Abdominal pain (Acute) Social History Smoking/Tobacco Use Status: Current every day Tobacco Type: e-cigarettes Smoking risk assessment performed?: Yes Alcohol Intake: current Alcohol Intake frequency: a few times a month Drug use: Never Substance use type: does not use Do you feel safe at home: Yes Do you feel safe in your relationship?: Yes Exam Narrative Exam Narrative: Constitutional: Alert and oriented x3. Appears stated age. Normal body habitus. Head: Normocephalic, no trauma. Eyes: Pupils PERRL, EOM's intact. Eyelids symmetrical without lesions, discharge, or swelling. Resp: Breathing eupneic, speaking in full sentences. Musculoskeletal: Normal gait, 5/5 strength to all four extremities. Tenderness in the popliteal fossa, no obvious swelling or deformity noted to the left knee. Distal pulses intact, CMS intact denies any significant hip pain or ankle pain. She does report soreness but is able to ambulate. Skin: No suspicious rashes or lesions. Capillary refill less than 2 sec. Neurologic: Cranial nerves II-XII intact. Alert and oriented x 3. Motor: No deficits noted. Sensory: Intact bilaterally all 4 extremities. Hematologic/Lymphatic: No ecchymosis, no lymphadenopathy. Course Vital Signs Vital signs: Vital Signs Temperature 37.2 C 05/19/22 08:04 Pulse 104 H 05/19/22 08:04 Respiratory Rate 18 05/19/22 08:04 Blood Pressure 138/78 05/19/22 08:04 Pulse Oximetry 98 05/19/22 08:04 Temperature 37.2 C 05/19/22 08:04 Temperature Source Oral 05/19/22 08:04 Pulse 104 H 05/19/22 08:04 Respiratory Rate 18 05/19/22 08:04 Respiratory Effort Normal, Non-Labored 05/19/22 08:05 Blood Pressure 138/78 05/19/22 08:04 Pulse Oximetry 98 05/19/22 08:04 Oxygen Delivery Method Room Air 05/19/22 08:04 Oxygen Flow Rate 0 05/19/22 08:04 PAWSS Have you Been Recently Intoxicated or Drunk Within the Last 30 days?: No Have you Ever Experienced Previous Episodes of Alcohol Withdrawal?: No Have you ever Experienced Withdrawal Seizures?: No Have you ever Experienced Delirium Tremens(DT)s?: No Have you ever undergone Alcohol Rehabilitation Treatment (i.e, inpt ot outpatient treatment programs)?: No Have you ever Experienced Blackouts?: No Have you ever Combined Alcohol with other Downers within the last 90 days?: No Have you ever Combined Alcohol with any other Substance of Abuse during the last 90 days?: No Positive Blood Alcohol level on Presentation? [PCS.BAL]: No Evidence of Increased Autonomic Activity (i.e. HR>120, tremor, sweating, agitation, nausea)?: No Result: 0
== END 2022-05-19 13:31 | disposition home or self-care (01) ==
PROVIDERS: Emergency Provider Registered Nurse Emergency; PCP Physician Assistant
DX: S83.8X2A Sprain of other specified parts of left knee, initial encounter (principal); X50.1XXA Overexertion from prolonged static or awkward postures, initial encounter
CPT/HCPCS: 29505; 73562; 81025; 99283